=== PATIENT | male | born 1955 | race African-American/Black ===

== ENCOUNTER → 2020-02-09 11:57 | Outpatient (BNVA) | payer OTHER, SELFPAY | PROVIDERS: PCP Physician Assistant Medical; Referring Provider Physician Assistant Medical; Visit Provider Internal Medicine Gastroenterology | DX: K59.04 Chronic idiopathic constipation (principal); K74.60 Unspecified cirrhosis of liver; D12.6 Benign neoplasm of colon, unspecified; Z79.899 Other long term (current) drug therapy | CPT/HCPCS: 99213 ==

== ENCOUNTER 2020-02-19 12:15 | Outpatient (REF) | payer OTHER, SELFPAY ==
[2020-02-19 14:55] LABS: Estimated Average Glucose 126 mg/dL; Hemoglobin A1C 149.4694 umol/L
[2020-02-19 15:02] LABS: Creatinine Urine 73.69 mg/dL; Microalbum/Creatinine Ratio Ur 52.9 ug/mg cr
[2020-02-19 15:12] LABS: Alanine Aminotransferase 34 U/L (0-40); Albumin Level 3.9 g/dL (3.5-5.0); Alkaline Phosphatase 65 U/L (39-117); Anion Gap 13 (12-20); Aspartate Amino Transferase 34 U/L (5-37); Bilirubin Total 1.2 mg/dL (0.0-1.0); Blood Urea Nitrogen 14 mg/dL (9-16); Calcium 8.8 mg/dL (8.4-10.2); Carbon Dioxide 25 mmol/L (22-29); Chloride 103 mmol/L (96-108); Cholesterol 132 mg/dL; Estimated Glomerular Filt Rate > 60; Glucose Fasting 166 mg/dL (60-99); HDL Cholesterol 38 mg/dL; LDL Cholesterol Calculated 81 mg/dl; Sodium 137 mmol/L (135-145); Total Protein 6.9 g/dL (6.5-8.0); Triglycerides 67 mg/dL
[2020-02-20 20:31] LABS: LDL Cholesterol Direct 81 mg/dL (<100)
[2020-02-24 05:26] LABS: Fructosamine 314 umol/L (205-285)
== END 2020-02-19 12:16 | disposition home or self-care (01) ==
LOC: HO.10HDL 12:15
PROVIDERS: Visit Provider Nurse Practitioner Gerontology
DX: E11.42 Type 2 diabetes mellitus with diabetic polyneuropathy (principal); D12.6 Benign neoplasm of colon, unspecified
CPT/HCPCS: 80053; 80061; 82043; 82985; 83036; 83721

== ENCOUNTER 2020-04-12 | Outpatient (REF) | payer OTHER, SELFPAY ==
[2020-04-15 14:17] LABS: FIT Int Ctl YES; FIT1 NEGATIVE (NEGATIVE); FIT2 NEGATIVE (NEGATIVE)
== END 2020-04-12 00:01 | disposition home or self-care (01) ==
LOC: HO.LNP
PROVIDERS: Visit Provider Internal Medicine Gastroenterology
DX: Z13.89 Encounter for screening for other disorder (principal)
CPT/HCPCS: 82274

== ENCOUNTER → 2020-09-24 13:58 | Outpatient (BNVA) | payer OTHER, SELFPAY | PROVIDERS: PCP Physician Assistant Medical; Visit Provider Nurse Practitioner Gerontology | DX: E11.65 Type 2 diabetes mellitus with hyperglycemia (principal); E11.42 Type 2 diabetes mellitus with diabetic polyneuropathy; E78.5 Hyperlipidemia, unspecified; E78.1 Pure hyperglyceridemia; I10 Essential (primary) hypertension; Z88.8 Allergy status to other drugs, medicaments and biological substances; Z87.891 Personal history of nicotine dependence; Z79.84 Long term (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 of oral hypoglycemic drugs; Z79.899 Other long term (current) drug therapy | CPT/HCPCS: 82947; 83036; 99212 ==

== ENCOUNTER 2020-11-17 07:52 | Outpatient (REF) | payer OTHER, SELFPAY ==
--- NOTE | ~2020-11-17 | US_ITS ---
EXAMINATION: US ABDOMEN COMPLETE CLINICAL INFORMATION: Cirrhosis of liver. COMPARISON: April 29, 2019 TECHNIQUE: Real-time imaging of the abdominal viscera. FINDINGS: PANCREAS: Normal. ABDOMINAL AORTA: The proximal, mid, and distal segments are normal in caliber. INFERIOR VENA CAVA: Visualized portions are normal. LIVER: The liver has a coarse echotexture with increased echogenicity. No lobulation to the hepatic border is identified. No focal mass or intrapelvic bile duct dilatation is seen. GALLBLADDER: There is a 2 mm nonmobile echogenic structure likely representing a small polyp. The gallbladder is partially distended without evidence of wall thickening or pericholecystic fluid. COMMON BILE DUCT: Normal in caliber measuring 0.3 cm in diameter. RIGHT KIDNEY: Normal. No hydronephrosis. No renal calculi or focal parenchymal lesions. The kidney measures 12.7 cm in maximum dimension. LEFT KIDNEY: Normal. No hydronephrosis. No renal calculi or focal parenchymal lesions. The kidney measures 12.2 cm in maximum dimension. SPLEEN: Normal. The spleen measures 10.1 cm in maximum dimension. FREE FLUID: None. US/US abdomen complete IMPRESSION: Coarsened texture with increased echogenicity of the liver consistent with cirrhosis/hepatocellular disease. 2 mm nonmobile echogenic focus within the gallbladder consistent with small polyp.
== END 2020-11-17 07:53 | disposition home or self-care (01) ==
LOC: HO.US 07:52
PROVIDERS: Visit Provider Nurse Practitioner
DX: K74.60 Unspecified cirrhosis of liver (principal); E11.65 Type 2 diabetes mellitus with hyperglycemia; E11.42 Type 2 diabetes mellitus with diabetic polyneuropathy; E78.5 Hyperlipidemia, unspecified; E78.1 Pure hyperglyceridemia; I10 Essential (primary) hypertension
CPT/HCPCS: 76700

== ENCOUNTER → 2020-12-09 15:21 | Outpatient (BNVA) | payer OTHER, SELFPAY | PROVIDERS: Visit Provider Nurse Practitioner ==

== ENCOUNTER 2021-01-24 10:26 | Outpatient (REF) | payer OTHER, SELFPAY ==
[2021-01-24 14:07] LABS: Vitamin D 25-OH Total 33.9 ng/mL (>30)
[2021-01-24 14:08] LABS: Ferritin 408 ng/mL (20-250)
[2021-01-24 14:12] LABS: Alanine Aminotransferase 43 U/L (0-40); Albumin Level 4.1 g/dL (3.5-5.0); Alkaline Phosphatase 134 U/L (39-117); Anion Gap 11 (12-20); Aspartate Amino Transferase 30 U/L (5-37); Bilirubin Direct 0.2 mg/dL (0.0-0.5); Bilirubin Total 0.3 mg/dL (0.0-1.0); Blood Urea Nitrogen 14 mg/dL (9-16); Calcium 9.6 mg/dL (8.4-10.2); Carbon Dioxide 30 mmol/L (22-29); Chloride 101 mmol/L (96-108); Cholesterol 130 mg/dL; Estimated Glomerular Filt Rate 57; Gamma Glutamyl Transpeptidase 181 U/L (11-51); Glucose Fasting 356 mg/dL (60-99); HDL Cholesterol 35 mg/dL; LDL Cholesterol Calculated 77 mg/dl; Potassium 4.7 mmol/L (3.3-5.1); Sodium 137 mmol/L (135-145); Total Protein 7.4 g/dL (6.5-8.0); Triglycerides 90 mg/dL
[2021-01-24 15:02] LABS: Microalbum/Creatinine Ratio Ur 310.3 ug/mg cr
[2021-01-25 12:21] LABS: Alpha Fetoprotein 2.5 ng/mL (<6.1)
== END 2021-01-24 10:27 | disposition home or self-care (01) ==
LOC: HO.LAB 10:26
PROVIDERS: Nurse Practitioner Gerontology; PCP Physician Assistant Medical; Visit Provider Nurse Practitioner
DX: K59.04 Chronic idiopathic constipation (principal); D12.6 Benign neoplasm of colon, unspecified; K74.60 Unspecified cirrhosis of liver; K21.9 Gastro-esophageal reflux disease without esophagitis; E11.42 Type 2 diabetes mellitus with diabetic polyneuropathy; E11.65 Type 2 diabetes mellitus with hyperglycemia
CPT/HCPCS: 36415; 80053; 80061; 80076; 82043; 82105; 82248; 82306; 82728; 82977; 99212

== ENCOUNTER → 2021-03-07 11:04 | Outpatient (BNVA) | payer OTHER, SELFPAY | PROVIDERS: PCP Physician Assistant Medical; Visit Provider Nurse Practitioner | DX: K21.9 Gastro-esophageal reflux disease without esophagitis (principal); K59.04 Chronic idiopathic constipation; K74.60 Unspecified cirrhosis of liver; D12.6 Benign neoplasm of colon, unspecified | CPT/HCPCS: 99212 ==

== ENCOUNTER → 2021-05-25 09:43 | Outpatient (BNVA) | payer OTHER, SELFPAY | PROVIDERS: PCP Physician Assistant Medical; Visit Provider Nurse Practitioner Gerontology | DX: E11.65 Type 2 diabetes mellitus with hyperglycemia (principal); E11.42 Type 2 diabetes mellitus with diabetic polyneuropathy; E78.5 Hyperlipidemia, unspecified; E78.1 Pure hyperglyceridemia; I10 Essential (primary) hypertension; Z79.4 Long term (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 | CPT/HCPCS: 82947; 83036; 99212 ==

== ENCOUNTER → 2021-06-01 12:18 | Outpatient (BNVA) | payer OTHER, SELFPAY | PROVIDERS: PCP Physician Assistant Medical; Visit Provider Registered Nurse Diabetes Educator | DX: E11.42 Type 2 diabetes mellitus with diabetic polyneuropathy (principal) | CPT/HCPCS: 99211 ==

== ENCOUNTER → 2021-06-03 11:48 | Outpatient (BNVA) | payer OTHER, SELFPAY | PROVIDERS: PCP Physician Assistant Medical; Visit Provider Nurse Practitioner | DX: K74.60 Unspecified cirrhosis of liver (principal); K21.9 Gastro-esophageal reflux disease without esophagitis; D12.6 Benign neoplasm of colon, unspecified | CPT/HCPCS: 99212 ==

== ENCOUNTER 2021-07-08 10:24 | Day surgery (SDC) | payer OTHER, SELFPAY ==
--- NOTE | 2021-07-07 09:32 | P.CONAN_ITS ---
Documented by User: Almaz Azul NP 07/07/21 09:37 HPI - Anesthesia Eval Consult details Narrative: 65yo M for Colonoscopy PMFSH Active Problems Active Problems: All Active Problems (Updated 03/07/21 @ 12:02 by SIXTO Meade) GERD (gastroesophageal reflux disease) (Acute) Chronic idiopathic constipation (Acute) Tubular adenoma of colon (Acute) Cirrhosis of liver (Acute) Diabetes type 2, uncontrolled (Acute) Type 2 diabetes mellitus with diabetic polyneuropathy (Acute) Hyperlipidemia LDL goal <100 (Acute) Hypertriglyceridemia (Acute) Essential hypertension (Acute) Past Medical History Medical History Chronic idiopathic constipation Cirrhosis of liver Diabetes type 2, uncontrolled Essential hypertension GERD (gastroesophageal reflux disease) Hyperlipidemia LDL goal <100 Hypertriglyceridemia Tubular adenoma of colon Type 2 diabetes mellitus with diabetic polyneuropathy Family History Family History Father No problems noted. Mother Esophageal cancer Maternal Grandfather Prostate cancer Diabetes Maternal Grandmother CVD (cardiovascular disease) Daughter Tubular adenoma Surgical History Surgical History (Updated 07/04/21 @ 11:10 by Brooklyn Krishnan RN) H/O esophagogastroduodenoscopy History of gastric surgery History of penile implant Hx of colonoscopy (~10/2014) Social History Social History Household Members: Spouse Alcohol intake: current Alcohol intake frequency: former alcohol drinker Patient Tobacco Use Status: Former Tobacco user Use of substances other than those prescribed or required for medical reasons: No Are you DNR?: No Advance Directives: No Advance Directives Information Provided: Yes Meds Allergies Allergy/AdvReac Type Severity Reaction Status Date / Time lisinopril Allergy Unknown cough Verified 06/03/21 11:59 Home Medications Medication Instructions Recorded Confirmed Last Taken Type atorvastatin 20 mg tablet 20 mg PO BEDTIME 02/09/20 07/04/21 Unknown History fenofibrate micronized 134 mg 134 mg PO DAILY 02/09/20 07/04/21 Unknown History capsule omeprazole 20 mg capsule,delayed 20 mg PO DAILY 02/09/20 07/04/21 Unknown History release pregabalin 100 mg capsule (Lyrica) 100 mg PO BID 02/09/20 07/04/21 Unknown History insulin lispro 100 unit/mL 16 - 20 unit SUBCUT TID ml 06/03/21 07/04/21 Unknown History subcutaneous pen (Humalog KwikPen (U-100) Insulin) sitagliptin 100 mg tablet (Januvia) 1 tab PO DAILY 07/04/21 07/04/21 Unknown History Exam Exam Date and Time: July 07, 2021 0932 Pertinent Lab Results Pertinent Lab Results: Laboratory Tests 09/25/18 01/24/21 15:17 12:50 WBC 4.6 L Hgb 13.8 L Hct 39.2 L Plt Count 191 Sodium 137 Potassium 4.7 Chloride 101 Carbon Dioxide 30 H BUN 14 Creatinine 1.27 Narrative Narrative: US abdomen complete 10/2020 IMPRESSION: Coarsened texture with increased echogenicity of the liver consistent with cirrhosis/hepatocellular disease. ? 2 mm nonmobile echogenic focus within the gallbladder consistent with small polyp. Assessment and Plan Assessment Anesthesia Assessment: Chart Reviewed Documented by User: Sylvester Hernandez MD 07/08/21 20:55 [facility] Past Medical History Medical History Chronic idiopathic constipation Cirrhosis of liver Diabetes type 2, uncontrolled Essential hypertension GERD (gastroesophageal reflux disease) Hyperlipidemia LDL goal <100 Hypertriglyceridemia Tubular adenoma of colon Type 2 diabetes mellitus with diabetic polyneuropathy Functional capacity: independent ambulation Family History Family History Father No problems noted. Mother Esophageal cancer Maternal Grandfather Prostate cancer Diabetes Maternal Grandmother CVD (cardiovascular disease) Daughter Tubular adenoma Family history of problems with anesthesia: No Surgical History Surgical History (Updated 07/04/21 @ 11:10 by Brooklyn Krishnan RN) H/O esophagogastroduodenoscopy History of gastric surgery History of penile implant Hx of colonoscopy (~10/2014) History of Problems with Anesthesia: No Social History Social History Household Members: Spouse Alcohol intake: current Alcohol intake frequency: former alcohol drinker Patient Tobacco Use Status: Former Tobacco user Use of substances other than those prescribed or required for medical reasons: No Are you DNR?: No Advance Directives: No Advance Directives Information Provided: Yes Meds Allergies Allergy/AdvReac Type Severity Reaction Status Date / Time lisinopril Allergy Unknown cough Verified 06/03/21 11:59 Home Medications Medication Instructions Recorded Confirmed Last Taken Type atorvastatin 20 mg tablet 20 mg PO BEDTIME 02/09/20 07/04/21 Unknown History fenofibrate micronized 134 mg 134 mg PO DAILY 02/09/20 07/04/21 Unknown History capsule omeprazole 20 mg capsule,delayed 20 mg PO DAILY 02/09/20 07/04/21 Unknown History release pregabalin 100 mg capsule (Lyrica) 100 mg PO BID 02/09/20 07/04/21 Unknown History insulin lispro 100 unit/mL 16 - 20 unit SUBCUT TID ml 06/03/21 07/04/21 Unknown History subcutaneous pen (Humalog KwikPen (U-100) Insulin) sitagliptin 100 mg tablet (Januvia) 1 tab PO DAILY 07/04/21 07/04/21 Unknown History Exam Airway Mallampati Class: II TM Dist: >3cm Neck ROM: Full Denture: Upper Loose/Missing/Broken Teeth: Yes Heart: rrr Lungs: bl breath sounds Assessment and Plan Assessment Anesthesia Assessment: Anesthesia Plan Discussed Final Anesthetic Review Family History of Problems with Anesthesia: No History of Problems with Anesthesia: No NPO: Yes ASA Class: III Final Preanesthetic Review: Meds/Allgs Chart Reviewed, Consent Obtained/Reviewed and Anes Risks/Benef Reviewed Patient Risk: High Procedure Risk: Intermediate Anesthetic Plan Anesthetic Plan: MAC: Disposition: Standard PACU
[2021-07-08 11:20] VITALS: BP 158/86; PULSE 85; RESP 16; TEMP 36.2; O2SAT 98
[2021-07-08 11:21] VITALS: BMI 30.1
--- NOTE | 2021-07-08 11:28 | MHC.SHP ---
Pre-Procedural Eval Section A Date of Service: 07/08/21 The patient is an INPATIENT: No The History & Physical has been completed within 30 days and I have reviewed it.: No Section B Chief Complaint: Colon cancer screening, Hx of colon polyps Details of Present Illness: Colon cancer screening, history of colon polyps Relevant Family History (Specify if Yes): Yes Relevant Social History: Tobacco Use (Former smoker) Present Medications: see Short Stay Collaborative assessment Medical History: Significant History (Chronic idiopathic constipation Cirrhosis of liver Diabetes type 2, uncontrolled Essential hypertension GERD (gastroesophageal reflux disease) Hyperlipidemia LDL goal <100 Hypertriglyceridemia Tubular adenoma of colon Type 2 diabetes mellitus with diabetic polyneuropathy) History of Previous Operations: Relevant previous surgery/procedure and date(s) (H/O esophagogastroduodenoscopy History of gastric surgery History of prostate surgery Hx of colonoscopy (~10/2014)) Allergies: Allergies Allergy/AdvReac Type Severity Reaction Status Date / Time lisinopril Allergy Unknown cough Verified 06/03/21 11:59 Review of Systems Sugical H&P ROS: Negative: Constitution, Cardiovascular, Respiratory and Gastrointestinal Exam Surgical H&P Exam: Normal: Heart, Normal: Lungs and Normal: Extremities Plan Diagnosis/Plan: Unchanged I have reviewed the history and physical and performed a pertinent physical examination on my patient. No changes have occurred unless specified.
--- NOTE | 2021-07-08 11:30 | P.OP_ITS ---
Operative Note Operative Note Date of Service: 07/08/21 Narrative: Pre-op diagnosis:nnColon cancer screening, history of colon polyps Post-op diagnosis:?other (colon polyps, diverticulosis, hemorrhoids) Procedure: COLONOSCOPY TILL CECUM WITH SNARE POLYPECTOMY Consent: Indications for the procedure and potential complications of bleeding, perforation, reaction to medications and missed diagnosis were discussed with the patient and informed consent was obtained. Instrument: Olympus CF H 190 L variable stiffness adult colonoscope Monitoring: Vital signs and clinical assessment, intermittent blood pressure monitoring, continuous EKG monitoring, Pulse oximetry and Carbon Dioxide monitoring were done throughout the procedure. Colon withdrawl time was 17 minutes. Procedure: The patient was placed in the left lateral decubitis position and pre-procedure medications were administered. After a digital rectal examination of the ano-rectum, the video colonoscope was inserted into the rectum and advanced through the colon to the cecum. The colonoscope was slowly withdrawn in a retrograde panoramic fashion and the colon mucosa was carefully examined including a retroflexed view of the rectum. Findings and interventions are described below. Procedure Difficulty: Without difficulty Findings: Terminal Ileum: Not evaluated Cecum:? Normal Ascending Colon:? Scattered moderate diverticulosis throughout the colon Transverse Colon:? A 10 - 12 mm sessile polyp removed with a cold snare Scattered moderate diverticulosis throughout the colon Descending Colon:? Scattered moderate diverticulosis throughout the colon Sigmoid Colon:? Moderate diverticulosis Rectum:? Normal Ano-rectum:? Moderate internal hemorrhoids Colon preparation:? Good after copious irrigation. Impression and Post Procedure Diagnosis: Colonoscopy Findings: One medium sized polyp removed Moderate diverticulosis seen in the entire colon Moderate hemorrhoids on retroflexed exam. Plan: Await pathology results Patient has an appointment on 07/15/21 in the GI Clinic with? Cindy Swift NP. Repeat Colonoscopy interval based on path results - in 3 years if polyps are adenomatous and 10 years if polyps are hyperplastic. Above findings were reviewed with the patient and colon polyps and diverticulosis handouts were given in the discharge area Surgeon: Marino uPrcell MD Anesthesia:?MAC (Dr Hernandez) Was an Electrical Controls Designer used for this Procedure?:?Yes Electrical Controls Designer:?Naima Kiser Estimated blood loss (mL):?0 Pathology:?other (A. transverse colon polyp) Condition:?stable Disposition:?PACU
[2021-07-08 11:32] LABS: Glucose, Whole Blood 109 mg/dL (60-115)
[2021-07-08] MEDS: Lactated Ringers 1,000 ML 100 ML IVCONT (11:37)
[2021-07-08 13:05] VITALS: BP 130/80; PULSE 84; RESP 19; TEMP 36.2; O2SAT 97
[2021-07-08 13:19] VITALS: BP 138/85; PULSE 82; RESP 19; O2SAT 100
[2021-07-08 13:34] VITALS: BP 153/89; PULSE 88; RESP 18; TEMP 36.2; O2SAT 99
== END 2021-07-08 14:15 | disposition home or self-care (01) ==
PROVIDERS: PCP Physician Assistant Medical; Visit Provider Internal Medicine Gastroenterology
PROC: 0DJD8ZZ Inspection of Lower Intestinal Tract, Via Natural or Artificial Opening Endoscopic (ICD-10-PCS; CPT 45378; principal; 2021-07-08 10:40)
DX: Z12.11 Encounter for screening for malignant neoplasm of colon (principal); Z86.010 Personal history of colon polyps; D12.3 Benign neoplasm of transverse colon; K57.30 Diverticulosis of large intestine without perforation or abscess without bleeding; K64.8 Other hemorrhoids; K59.04 Chronic idiopathic constipation; K21.9 Gastro-esophageal reflux disease without esophagitis; K74.60 Unspecified cirrhosis of liver; E78.5 Hyperlipidemia, unspecified; I10 Essential (primary) hypertension; E11.42 Type 2 diabetes mellitus with diabetic polyneuropathy; Z88.8 Allergy status to other drugs, medicaments and biological substances; Z98.890 Other specified postprocedural states; Z79.4 Long term (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; Z79.899 Other long term (current) drug therapy; Z87.891 Personal history of nicotine dependence
CPT/HCPCS: 45385; 82947; 88305

== ENCOUNTER 2021-07-13 11:04 | Outpatient (REF) | payer MEDICARE, MEDICAID, SELFPAY ==
[2021-07-13 12:46] LABS: Alanine Aminotransferase 45 U/L (0-40); Alkaline Phosphatase 104 U/L (39-117); Aspartate Amino Transferase 34 U/L (5-37); Bilirubin Direct 0.3 mg/dL (0.0-0.5); Bilirubin Total 0.7 mg/dL (0.0-1.0); Total Protein 7.2 g/dL (6.5-8.0)
[2021-07-13 13:17] LABS: Ferritin 377 ng/mL (20-250)
[2021-07-15 19:21] LABS: Anti Nuclear Antibody Screen NEGATIVE (NEGATIVE)
[2021-07-16 13:16] LABS: Mitochondrial Antibodies NEGATIVE (NEGATIVE)
[2021-07-17 14:00] LABS: Smooth Muscle Antibody <20 U (<20)
== END 2021-07-13 11:05 | disposition home or self-care (01) ==
LOC: HO.US 11:04
PROVIDERS: Absent Provider Nurse Practitioner Gerontology; PCP Physician Assistant Medical; Visit Provider Nurse Practitioner
DX: K74.60 Unspecified cirrhosis of liver (principal)
CPT/HCPCS: 36415; 80076; 82105; 82728; 86015; 86038; 86039; 86255; 86256

== ENCOUNTER 2021-08-03 08:52 | Outpatient (REF) | payer MEDICARE, MEDICAID, SELFPAY ==
--- NOTE | ~2021-08-03 | US_ITS ---
EXAMINATION: US ABDOMEN LIMITED CLINICAL INFORMATION: Unspecified cirrhosis of liver. COMPARISON: Ultrasound abdomen complete 11/17/2020 and 04/29/2019; CT abdomen and pelvis with contrast 05/13/2018. TECHNIQUE: Real-time imaging of the right upper quadrant abdominal viscera. FINDINGS: PANCREAS: Pancreas is normal in size and contour and echogenicity. There is no pancreatic ductal dilatation or retroperitoneal effusion. LIVER: The liver is normal in size measuring 16.4 cm in length. There is suggestion of nodular hepatic parenchymal surface which may suggest underlying cirrhosis. This is also question on CT 2019. There is mild increased hepatic parenchymal echogenicity which may suggest hepatic steatosis. There is no focal hepatic parenchymal lesion on ultrasound and no intrahepatic ductal dilatation. GALLBLADDER: There is a small gallbladder polyp approximately 3 mm, polyp also noted on prior ultrasound. No definite additional polyps and no calculus or sludge. No gallbladder wall thickening. Negative sonographic Overton's sign. COMMON BILE DUCT: Normal in caliber measuring 0.2 cm in diameter. RIGHT KIDNEY: Right kidney measures 12.8 cm in length and shows no hydronephrosis. No visible renal calculi or focal parenchymal lesion. No calculi. FREE FLUID: None. US/US abdomen limited IMPRESSION: -Subtle hepatic nodular surface suspicious for cirrhosis, also questioned on CT 2019. -No focal hepatic parenchymal lesion. No ascites. -Small gallbladder polyp. No stone or sludge. No ductal dilatation.
== END 2021-08-03 08:53 | disposition home or self-care (01) ==
LOC: HO.US 08:52
PROVIDERS: PCP Physician Assistant Medical; Visit Provider Nurse Practitioner
DX: K74.60 Unspecified cirrhosis of liver (principal)
CPT/HCPCS: 76705

== ENCOUNTER → 2021-08-12 11:04 | Outpatient (BNVA) | payer MEDICARE, MEDICAID, SELFPAY | PROVIDERS: PCP Physician Assistant Medical; Visit Provider Nurse Practitioner | DX: T83.490A Other mechanical complication of implanted penile prosthesis, initial encounter (principal); N40.1 Benign prostatic hyperplasia with lower urinary tract symptoms; N13.8 Other obstructive and reflux uropathy; K59.04 Chronic idiopathic constipation; K21.9 Gastro-esophageal reflux disease without esophagitis; K74.60 Unspecified cirrhosis of liver; D12.6 Benign neoplasm of colon, unspecified | CPT/HCPCS: 99212 ==

== ENCOUNTER → 2021-09-09 12:14 | Outpatient (BNVA) | payer MEDICARE, MEDICAID, SELFPAY | PROVIDERS: PCP Physician Assistant Medical; Visit Provider Nurse Practitioner | DX: K21.9 Gastro-esophageal reflux disease without esophagitis (principal); K59.04 Chronic idiopathic constipation; K74.60 Unspecified cirrhosis of liver | CPT/HCPCS: 99212 ==

== ENCOUNTER 2022-02-22 10:58 | Outpatient (REF) | payer MEDICARE, SELFPAY ==
--- NOTE | ~2022-02-22 | XR_ITS ---
EXAMINATION: XR LUMBAR AND DORSAL SPINE CLINICAL INFORMATION: Abdominal pain. COMPARISON: None. TECHNIQUE: 3 views dorsal spine and 3 views lumbar spine. FINDINGS: Lumbar Spine: There is normal lumbar lordosis. The vertebral heights and alignment are normal. There is loss of L3-L4 disc height with endplate sclerosis. The rest of the disc heights are normal. There is no visible acute fracture, lytic or sclerotic process. Mild lateral spondylosis seen throughout lumbar spine. Dorsal Spine: There is normal thoracic kyphosis. The vertebral heights, alignment and disc heights are normal. There is no visible acute fracture, dislocation or lytic process seen. The paravertebral soft tissues are normal. XR/XR thoracic spine 2V IMPRESSION: Degenerative disc changes L3-L4 disc level. No visible acute fracture, dislocation or lytic process seen. Lateral spondylosis most prominent on the left at L4-L5 disc level. Unremarkable dorsal spine exam.
--- NOTE | ~2022-02-22 | XR_ITS ---
EXAMINATION: XR LUMBAR AND DORSAL SPINE CLINICAL INFORMATION: Abdominal pain. COMPARISON: None. TECHNIQUE: 3 views dorsal spine and 3 views lumbar spine. FINDINGS: Lumbar Spine: There is normal lumbar lordosis. The vertebral heights and alignment are normal. There is loss of L3-L4 disc height with endplate sclerosis. The rest of the disc heights are normal. There is no visible acute fracture, lytic or sclerotic process. Mild lateral spondylosis seen throughout lumbar spine. Dorsal Spine: There is normal thoracic kyphosis. The vertebral heights, alignment and disc heights are normal. There is no visible acute fracture, dislocation or lytic process seen. The paravertebral soft tissues are normal. XR/XR lumbar spine 2-3V IMPRESSION: Degenerative disc changes L3-L4 disc level. No visible acute fracture, dislocation or lytic process seen. Lateral spondylosis most prominent on the left at L4-L5 disc level. Unremarkable dorsal spine exam.
[2022-02-22 12:23] LABS: Appearance Urine Clear; Color Urine Yellow; Glucose Urine UA >=1000 mg/dL (Negative); Leukocyte Esterase Urine Negative (Negative); Nitrite Urine Negative (Negative); PH 6.5 (5.0-9.0); UMIC TRIGGER UACC YES; Urine Blood Negative (Negative); Urine Ketones Negative (Negative); Urine Protein 30 (1+) mg/dL (Neg-Trace)
[2022-02-22 12:26] LABS: Bacteria Urine None Seen (None Seen); Hyaline Casts Urine 0-2 /LPF (0-2); RBC Urine 0-2 /HPF (0-2); Squamous Epithelial Cell Urine 0-2 /HPF (0-2); WBC Urine 0-5 /HPF (0-5)
[2022-02-22 12:59] LABS: Alanine Aminotransferase 44 U/L (0-40); Albumin Level 3.8 g/dL (3.5-5.0); Alkaline Phosphatase 147 U/L (39-117); Anion Gap 16 (12-20); Aspartate Amino Transferase 35 U/L (5-37); Bilirubin Total 0.3 mg/dL (0.0-1.0); Blood Urea Nitrogen 13 mg/dL (9-16); Calcium 9.7 mg/dL (8.4-10.2); Carbon Dioxide 28 mmol/L (22-29); Chloride 96 mmol/L (96-108); Estimated Glomerular Filt Rate > 60; Glucose Random 330 mg/dL (60-115); Potassium 4.6 mmol/L (3.3-5.1); Sodium 135 mmol/L (135-145)
[2022-02-24 13:55] LABS: Alpha Fetoprotein 2.3 ng/mL (<6.1)
== END 2022-02-22 10:59 | disposition home or self-care (01) ==
LOC: HO.LAB 10:58
PROVIDERS: PCP Physician Assistant Medical; Visit Provider Nurse Practitioner
DX: R10.9 Unspecified abdominal pain (principal); K59.04 Chronic idiopathic constipation; K21.9 Gastro-esophageal reflux disease without esophagitis; K74.60 Unspecified cirrhosis of liver; M54.9 Dorsalgia, unspecified
CPT/HCPCS: 36415; 72070; 72100; 80053; 81001; 82105; 99212

== ENCOUNTER 2022-05-04 09:45 | Outpatient (REF) | payer MEDICARE, SELFPAY ==
--- NOTE | ~2022-05-04 | US_ITS ---
EXAMINATION: US ABDOMEN LIMITED CLINICAL INFORMATION: Unspecified cirrhosis of liver. COMPARISON: Limited abdominal ultrasound 08/03/2021. Ultrasound abdomen complete 11/17/2020. CT abdomen and pelvis 05/13/2018. TECHNIQUE: Real-time imaging of the right upper quadrant abdominal viscera. FINDINGS: PANCREAS: The pancreas is heterogeneous but otherwise normal size. LIVER: The liver is normal in size. The liver contour is normal. The liver is slightly increased in echogenicity. No focal hepatic lesion. There is no intrahepatic biliary duct dilatation seen. GALLBLADDER: There is an echogenic polyp measuring 0.2 x 0.2 x 0.2 cm. The gallbladder is physiologically distended without evidence of stones, sludge, wall thickening or pericholecystic fluid. There are multiple internal mucosal folds. COMMON BILE DUCT: Normal in caliber measuring 0.3 cm in diameter. RIGHT KIDNEY: There is normal cortical thickness with mild lobulated kidney surface. No hydronephrosis. No renal calculi or focal parenchymal lesions. The kidney measures 12.7 cm in maximum dimension. FREE FLUID: None. US/US abdomen limited IMPRESSION: Small echogenic polyp with numerous folds within the gallbladder. Mild increased echogenicity of the liver. Pancreas is mildly heterogeneous.
== END 2022-05-04 09:46 | disposition home or self-care (01) ==
LOC: HO.US 09:45
PROVIDERS: Visit Provider Nurse Practitioner
DX: K74.60 Unspecified cirrhosis of liver (principal)
CPT/HCPCS: 76705

== ENCOUNTER → 2022-08-16 12:31 | Outpatient (BNVA) | payer MEDICARE, SELFPAY | PROVIDERS: PCP Physician Assistant Medical; Visit Provider Nurse Practitioner | DX: K59.04 Chronic idiopathic constipation (principal); K21.9 Gastro-esophageal reflux disease without esophagitis; K74.60 Unspecified cirrhosis of liver; M54.9 Dorsalgia, unspecified; R10.9 Unspecified abdominal pain | CPT/HCPCS: 99212 ==

== ENCOUNTER 2023-05-23 13:36 | Outpatient (AMB) | payer MEDICARE, SELFPAY ==
[2023-05-23 13:37] VITALS: BP 164/70; PULSE 91; O2SAT 97; BMI 29.7
--- NOTE | 2023-05-23 13:37 | HO.NEPHOV_ITS ---
HPI HPI Comments History of Present Illness Details 67 yr old man with long standing h/o HTN And DM for more than 5 years referred for CKD Creatinine was 1.2 in 2020. No recent labs availble No specific complaints today [facility] Medical History Chronic idiopathic constipation Cirrhosis of liver Diabetes type 2, uncontrolled Essential hypertension GERD (gastroesophageal reflux disease) Hyperlipidemia LDL goal <100 Hypertriglyceridemia Tubular adenoma of colon Type 2 diabetes mellitus with diabetic polyneuropathy Surgical History History of penile implant History of gastric surgery H/O esophagogastroduodenoscopy Hx of colonoscopy (~10/2014) Family History Father No problems noted. Mother Esophageal cancer Maternal Grandfather Prostate cancer Diabetes Maternal Grandmother CVD (cardiovascular disease) Daughter Tubular adenoma Social History Household Members: Spouse Alcohol intake: current Alcohol intake frequency: former alcohol drinker Patient Tobacco Use Status: Former Tobacco user Vital Signs 05/23/23 13:37 05/23/23 13:51 Height 5 ft 9 in Weight 201 lb 6 oz BMI 29.7 BP 164/70 H 132/70 Blood Pressure Location Lt brachial Lt brachial Position Sitting Sitting Pulse 91 Pulse Source Pulse Oximeter Pulse Oximetry (%) 97 Oxygen Delivery Method Room Air Physical Exam Vital Signs: Last Vital Signs Pulse 91 05/23/23 13:37 BP 132/70 05/23/23 13:51 Pulse Ox 97 05/23/23 13:37 Oxygen Delivery Method Room Air 05/23/23 13:37 BMI result Body Mass Index 29.7 Const General: comfortable Nutritional Appearance: well nourished Orientation/consciousness: patient oriented x3 HEENT Head: No normal to inspection Mouth: moist mucous membranes Neck Neck: Yes supple and Yes no JVD Resp Auscultation: clear to auscultation bilaterally, no rales and rub present Cardio Jugular venous distension: no JVD Palpation: no palpable S3 and no palpable S4 Heart sounds: no rubs GI Palpation (GI): Soft to palpation and nontender Percussion: No Fluid wave present General: Yes no CVA tenderness Back/Spine/Pelvis Back: no CVA tenderness Skin General skin exam: no rashes or lesions noted Neuro General: patient oriented x3 Extrem General: Yes no pedal edema and No clubbing Assessment & Plan Assessment & Plan (1) Essential hypertension: Code(s): I10 - Essential (primary) hypertension (2) CKD (chronic kidney disease): Code(s): N18.9 - Chronic kidney disease, unspecified (3) Cirrhosis of liver: Comment: 2019 hepatitis a B and C screens negative Code(s): K74.60 - Unspecified cirrhosis of liver (4) Type 2 diabetes mellitus with diabetic polyneuropathy: Code(s): E11.42 - Type 2 diabetes mellitus with diabetic polyneuropathy Plan . 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 Panel Today I10 - Essential (primary) hypertension, N18.9 - Chronic kidney disease, unspecified Sodium Urine Random Today I10 - Essential (primary) hypertension, N18.9 - Chronic kidney disease, unspecified Creatinine Urine Today I10 - Essential (primary) hypertension, N18.9 - Chronic kidney disease, unspecified Total Protein Urine Random Today I10 - Essential (primary) hypertension, N18.9 - Chronic kidney disease, unspecified Vitamin D 25-OH (D2 and D3) Today I10 - Essential (primary) hypertension, N18.9 - Chronic kidney disease, unspecified Coding Level of Care Code New Pt Level 4 (25083) Diagnoses Essential hypertension I10 CKD (chronic kidney disease) N18.9 Cirrhosis of liver K74.60 Type 2 diabetes mellitus with diabetic polyneuropathy E11.42 Results Reviewed Nephrology Results: Sodium 135 mmol/L (135-145) 02/22/22 Potassium 4.6 mmol/L (3.3-5.1) 02/22/22 Chloride 96 mmol/L (96-108) 02/22/22 Carbon Dioxide 28 mmol/L (22-29) 02/22/22 BUN 13 mg/dL (9-16) 02/22/22 Creatinine 1.21 mg/dL (0.5-1.4) 02/22/22 Calcium 9.7 mg/dL (8.4-10.2) 02/22/22 Urine Protein 30 (1+) mg/dL (Neg-Trace) H 02/22/22
[2023-05-23 13:51] VITALS: BP 132/70
== END 2023-05-23 13:56 | disposition home or self-care (01) ==
LOC: HO.HKA 13:36
PROVIDERS: PCP Physician Assistant Medical; Visit Provider Internal Medicine Hypertension Specialist
DX: I12.9 Hypertensive chronic kidney disease with stage 1 through stage 4 chronic kidney disease, or unspecified chronic kidney disease (principal); N18.9 Chronic kidney disease, unspecified; K74.60 Unspecified cirrhosis of liver; E11.42 Type 2 diabetes mellitus with diabetic polyneuropathy
CPT/HCPCS: 99204

== ENCOUNTER → 2023-05-23 13:36 | Outpatient (BNVA) | payer MEDICARE, SELFPAY | PROVIDERS: PCP Physician Assistant Medical; Visit Provider Internal Medicine Hypertension Specialist | DX: I12.9 Hypertensive chronic kidney disease with stage 1 through stage 4 chronic kidney disease, or unspecified chronic kidney disease (principal); E11.22 Type 2 diabetes mellitus with diabetic chronic kidney disease; N18.9 Chronic kidney disease, unspecified; K74.60 Unspecified cirrhosis of liver; E11.42 Type 2 diabetes mellitus with diabetic polyneuropathy | CPT/HCPCS: 99202 ==

== ENCOUNTER 2023-05-23 13:58 | Outpatient (REF) | payer MEDICARE, SELFPAY ==
[2023-05-23 18:08] LABS: Alanine Aminotransferase 31 U/L (0-40); Albumin Level 2.9 g/dL (3.5-5.0); Alkaline Phosphatase 124 U/L (39-117); Anion Gap 11 (12-20); Aspartate Amino Transferase 36 U/L (5-37); Bilirubin Total 0.3 mg/dL (0.0-1.0); Blood Urea Nitrogen 22 mg/dL (9-16); Calcium 8.9 mg/dL (8.4-10.2); Carbon Dioxide 28 mmol/L (22-29); Chloride 101 mmol/L (96-108); Estimated Glomerular Filt Rate 45; Glucose Random 261 mg/dL (60-115); Iron 82 mcg/dL (45-160); Percent Iron Saturation 38 % (15-50); Potassium 4.8 mmol/L (3.3-5.1); Sodium 135 mmol/L (135-145); Total Iron Binding Capacity 218 mcg/dL (228-428); Total Protein 6.4 g/dL (6.5-8.0); Unsaturated Iron Binding 136 ug/dL
== END 2023-05-23 13:59 | disposition home or self-care (01) ==
LOC: HO.HKASLDS 13:58
PROVIDERS: Visit Provider Internal Medicine Hypertension Specialist
DX: I12.9 Hypertensive chronic kidney disease with stage 1 through stage 4 chronic kidney disease, or unspecified chronic kidney disease (principal); N18.9 Chronic kidney disease, unspecified
CPT/HCPCS: 36415; 80053; 82306; 83540

== ENCOUNTER 2023-07-04 12:19 | Outpatient (AMB) | payer MEDICARE, SELFPAY ==
--- NOTE | 2023-07-04 12:21 | HO.NEPHOV_ITS ---
HPI HPI Comments History of Present Illness Details 67 yr old man with long standing h/o HTN And DM for more than 5 years referred for CKD Creatinine was 1.2 in 2020. No recent labs availble No specific complaints today [facility] Medical History Chronic idiopathic constipation Cirrhosis of liver Diabetes type 2, uncontrolled Essential hypertension GERD (gastroesophageal reflux disease) Hyperlipidemia LDL goal <100 Hypertriglyceridemia Tubular adenoma of colon Type 2 diabetes mellitus with diabetic polyneuropathy Surgical History History of penile implant History of gastric surgery H/O esophagogastroduodenoscopy Hx of colonoscopy (~10/2014) Family History Father No problems noted. Mother Esophageal cancer Maternal Grandfather Prostate cancer Diabetes Maternal Grandmother CVD (cardiovascular disease) Daughter Tubular adenoma Social History Household Members: Spouse Alcohol intake: current Alcohol intake frequency: former alcohol drinker Patient Tobacco Use Status: Former Tobacco user Vital Signs 07/04/23 12:22 Height 5 ft 9 in Weight 202 lb BMI 29.8 BP 152/90 H Blood Pressure Location Lt brachial Position Sitting Pulse 99 Pulse Source Pulse Oximeter Pulse Oximetry (%) 96 Oxygen Delivery Method Room Air Physical Exam Vital Signs: Last Vital Signs Pulse 99 07/04/23 12:22 BP 152/90 H 07/04/23 12:22 Pulse Ox 96 07/04/23 12:22 Oxygen Delivery Method Room Air 07/04/23 12:22 BMI result Body Mass Index 29.8 Const General: comfortable Nutritional Appearance: well nourished Orientation/consciousness: patient oriented x3 HEENT Head: No normal to inspection Mouth: moist mucous membranes Neck Neck: Yes supple and Yes no JVD Resp Auscultation: clear to auscultation bilaterally, no rales and rub present Cardio Jugular venous distension: no JVD Palpation: no palpable S3 and no palpable S4 Heart sounds: no rubs GI Palpation (GI): Soft to palpation and nontender Percussion: No Fluid wave present General: Yes no CVA tenderness Back/Spine/Pelvis Back: no CVA tenderness Skin General skin exam: no rashes or lesions noted Neuro General: patient oriented x3 Extrem General: Yes no pedal edema and No clubbing Assessment & Plan Assessment & Plan (1) Essential hypertension: Code(s): I10 - Essential (primary) hypertension (2) CKD (chronic kidney disease): Code(s): N18.9 - Chronic kidney disease, unspecified (3) Cirrhosis of liver: Comment: 2019 hepatitis a B and C screens negative Code(s): K74.60 - Unspecified cirrhosis of liver (4) Type 2 diabetes mellitus with diabetic polyneuropathy: Code(s): E11.42 - Type 2 diabetes mellitus with diabetic polyneuropathy Plan . 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 Panel Today N18.9 - Chronic kidney disease, unspecified Creatinine Urine Today N05.9 - Unspecified nephritic syndrome with unspecified morphologic changes, N18.9 - Chronic kidney disease, unspecified Total Protein Urine Random Today N18.9 - Chronic kidney disease, unspecified Vitamin D 25-OH (D2 and D3) Today N18.9 - Chronic kidney disease, unspecified Coding Level of Care Code Est Pt Level 4 (35452) Diagnoses Essential hypertension I10 CKD (chronic kidney disease) N18.9 Cirrhosis of liver K74.60 Type 2 diabetes mellitus with diabetic polyneuropathy E11.42 Results Reviewed Results Reviewed: No new labs yet Nephrology Results: Sodium 135 mmol/L (135-145) 05/23/23 Potassium 4.8 mmol/L (3.3-5.1) 05/23/23 Chloride 101 mmol/L (96-108) 05/23/23 Carbon Dioxide 28 mmol/L (22-29) 05/23/23 BUN 22 mg/dL (9-16) H 05/23/23 Creatinine 1.54 mg/dL (0.5-1.4) H 05/23/23 Calcium 8.9 mg/dL (8.4-10.2) 05/23/23 Urine Protein 30 (1+) mg/dL (Neg-Trace) H 02/22/22
[2023-07-04 12:22] VITALS: BP 152/90; PULSE 99; O2SAT 96; BMI 29.8
== END 2023-07-04 12:50 | disposition home or self-care (01) ==
PROVIDERS: PCP Physician Assistant Medical; Visit Provider Internal Medicine Hypertension Specialist
DX: I12.9 Hypertensive chronic kidney disease with stage 1 through stage 4 chronic kidney disease, or unspecified chronic kidney disease (principal); N18.9 Chronic kidney disease, unspecified; K74.60 Unspecified cirrhosis of liver; E11.42 Type 2 diabetes mellitus with diabetic polyneuropathy
CPT/HCPCS: 99214

== ENCOUNTER → 2023-07-04 12:19 | Outpatient (BNVA) | payer MEDICARE, SELFPAY | PROVIDERS: PCP Physician Assistant Medical; Visit Provider Internal Medicine Hypertension Specialist | DX: I12.9 Hypertensive chronic kidney disease with stage 1 through stage 4 chronic kidney disease, or unspecified chronic kidney disease (principal); E11.22 Type 2 diabetes mellitus with diabetic chronic kidney disease; E11.42 Type 2 diabetes mellitus with diabetic polyneuropathy; N18.30 Chronic kidney disease, stage 3 unspecified; K74.60 Unspecified cirrhosis of liver | CPT/HCPCS: 99212 ==

== ENCOUNTER 2023-07-05 12:24 | Outpatient (REF) | payer MEDICARE, SELFPAY ==
[2023-07-05 17:43] LABS: MANUAL DIFF FLAG NO
[2023-07-05 17:47] LABS: Basophils Percent Auto 0.5 % (0-2); Eosinophils Absolute Auto 0.2 X10*3/uL (0.0-0.4); Eosinophils Percent Auto 3.6 % (0-4); Hematocrit 33.3 % (42.0-52.0); Hemoglobin 11.3 g/dl (14.0-18.0); Imm Gran Abs Auto 0.01 X10*3/uL (0.00-0.03); Imm Gran Pct Auto 0.2 % (0.0-0.4); Lymphocytes Absolute Auto 2.4 X10*3/uL (1.2-4.9); Lymphocytes Percent Auto 35.5 % (20-40); Mean Corpuscular HGB Conc 33.9 g/dl (31.0-36.0); Mean Corpuscular Hemoglobin 31.7 pg (27.0-33.0); Mean Corpuscular Volume 93.3 fL (80.0-98.0); Mean Platelet Volume 10.6 fL (9.4-12.4); Monocytes Absolute Auto 0.7 X10*3/uL (0.1-1.2); Neutrophils Absolute Auto 3.3 x10*3/uL (2.0-8.3); Neutrophils Percent Auto 49.2 % (45-73); Platelet Count 216 X10*3/uL (160-400); Red Blood Count 3.57 X10*6/uL (4.60-5.80); Red Cell Distribution Width 11.5 % (11.0-16.0); White Blood Count 6.6 X10*3/uL (4.8-10.8)
[2023-07-05 18:08] LABS: Alanine Aminotransferase 32 U/L (0-40); Albumin Level 2.8 g/dL (3.5-5.0); Alkaline Phosphatase 168 U/L (39-117); Anion Gap 10 (12-20); Aspartate Amino Transferase 39 U/L (5-37); Bilirubin Total 0.8 mg/dL (0.0-1.0); Blood Urea Nitrogen 27 mg/dL (9-16); Calcium 8.7 mg/dL (8.4-10.2); Carbon Dioxide 30 mmol/L (22-29); Chloride 102 mmol/L (96-108); Estimated Glomerular Filt Rate 39; Glucose Random 103 mg/dL (60-115); Potassium 4.2 mmol/L (3.3-5.1); Sodium 138 mmol/L (135-145); Total Protein 6.2 g/dL (6.5-8.0)
[2023-07-09 23:09] LABS: Vitamin D 25-OH, D2 <4 ng/mL; Vitamin D 25-OH, D3 21 ng/mL; Vitamin D 25-OH, Total 21 ng/mL (30-100)
== END 2023-07-05 12:25 | disposition home or self-care (01) ==
LOC: HO.HKASLDS 12:24
PROVIDERS: Visit Provider Internal Medicine Hypertension Specialist
DX: N18.30 Chronic kidney disease, stage 3 unspecified (principal)
CPT/HCPCS: 36415; 80053; 82306; 85025

== ENCOUNTER 2023-09-05 11:14 | Outpatient (AMB) | payer MEDICARE, SELFPAY ==
--- NOTE | 2023-09-05 11:21 | HO.NEPHOV ---
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 Creatinine has bumped up to 1.7 in June Currently on Bumex 0.5mg along with VAlsartan 320 mg PFSH Medical History Chronic idiopathic constipation Cirrhosis of liver Diabetes type 2, uncontrolled Essential hypertension GERD (gastroesophageal reflux disease) Hyperlipidemia LDL goal <100 Hypertriglyceridemia Tubular adenoma of colon Type 2 diabetes mellitus with diabetic polyneuropathy Surgical History History of penile implant History of gastric surgery H/O esophagogastroduodenoscopy Hx of colonoscopy (~10/2014) Family History Father No problems noted. Mother Esophageal cancer Maternal Grandfather Prostate cancer Diabetes Maternal Grandmother CVD (cardiovascular disease) Daughter Tubular adenoma Social History Household Members: Spouse Alcohol intake: current Alcohol intake frequency: former alcohol drinker Patient Tobacco Use Status: Former Tobacco user Physical Exam Vital Signs: Last Vital Signs Pulse 92 09/05/23 11:26 BP 150/86 H 09/05/23 11:26 Pulse Ox 97 09/05/23 11:26 Oxygen Delivery Method Room Air 09/05/23 11:26 BMI result Body Mass Index 28.9 Results Reviewed Nephrology Results: Hgb 11.3 g/dl (14.0-18.0) L 07/05/23 WBC 6.6 X10*3/uL (4.8-10.8) 07/05/23 Plt Count 216 X10*3/uL (160-400) 07/05/23 Sodium 138 mmol/L (135-145) 07/05/23 Potassium 4.2 mmol/L (3.3-5.1) 07/05/23 Chloride 102 mmol/L (96-108) 07/05/23 Carbon Dioxide 30 mmol/L (22-29) H 07/05/23 BUN 27 mg/dL (9-16) H 07/05/23 Creatinine 1.76 mg/dL (0.5-1.4) H 07/05/23 Calcium 8.7 mg/dL (8.4-10.2) 07/05/23 Assessment & Plan Assessment & Plan (1) CKD (chronic kidney disease): Code(s): N18.9 - Chronic kidney disease, unspecified Category: Medical (2) Essential hypertension: Code(s): I10 - Essential (primary) hypertension Category: Medical (3) Cirrhosis of liver: Comment: 2019 hepatitis a B and C screens negative Code(s): K74.60 - Unspecified cirrhosis of liver Category: Medical (4) Type 2 diabetes mellitus with diabetic polyneuropathy: Code(s): E11.42 - Type 2 diabetes mellitus with diabetic polyneuropathy Category: Medical Plan . 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 No evidence of obstruction based on recent imaging Urine has been bland and AGN/AiN seem unlikely Goal is to slow the progression of renal disease Maintain BP < 130/80 and A1c < 7% Avoid nephrotoxins including NSAIDS Will benefit from SGLT-2 inhibitors Superimposed DEMI Cr is upto 1.76 Probably from hypoperfusion DC Bumex and recheck labs in 2 weeks Check renal ultrasound to r.o obstruction Orders: Orders Total Protein Urine Random 2 Weeks N18.9 - Chronic kidney disease, unspecified Basic Metabolic Panel 2 Weeks N18.9 - Chronic kidney disease, unspecified UA and rflx microscopic 2 Weeks N18.9 - Chronic kidney disease, unspecified Creatinine Urine 2 Weeks N05.9 - Unspecified nephritic syndrome with unspecified morphologic changes, N18.9 - Chronic kidney disease, unspecified US renal BI 2 Weeks N18.9 - Chronic kidney disease, unspecified Coding Level of Care Code Est Pt Level 4 (91818) Diagnoses CKD (chronic kidney disease) N18.9 Essential hypertension I10 Cirrhosis of liver K74.60 Type 2 diabetes mellitus with diabetic polyneuropathy E11.42
[2023-09-05 11:26] VITALS: BP 150/86; PULSE 92; O2SAT 97; BMI 28.9
== END 2023-09-05 11:41 | disposition home or self-care (01) ==
PROVIDERS: PCP Physician Assistant Medical; Visit Provider Internal Medicine Hypertension Specialist
DX: I12.9 Hypertensive chronic kidney disease with stage 1 through stage 4 chronic kidney disease, or unspecified chronic kidney disease (principal); N18.9 Chronic kidney disease, unspecified; K74.60 Unspecified cirrhosis of liver; E11.42 Type 2 diabetes mellitus with diabetic polyneuropathy
CPT/HCPCS: 99214

== ENCOUNTER → 2023-09-05 11:14 | Outpatient (BNVA) | payer MEDICARE, SELFPAY | PROVIDERS: PCP Physician Assistant Medical; Visit Provider Internal Medicine Hypertension Specialist | DX: E11.65 Type 2 diabetes mellitus with hyperglycemia (principal); E11.42 Type 2 diabetes mellitus with diabetic polyneuropathy; I12.9 Hypertensive chronic kidney disease with stage 1 through stage 4 chronic kidney disease, or unspecified chronic kidney disease; N18.9 Chronic kidney disease, unspecified; K74.60 Unspecified cirrhosis of liver | CPT/HCPCS: 99212 ==

== ENCOUNTER 2023-09-28 12:18 | Outpatient (REF) | payer MEDICARE, SELFPAY ==
--- NOTE | ~2023-09-28 | US_ITS ---
EXAMINATION: US RETROPERITONEAL LIMITED (RENAL ONLY) CLINICAL INFORMATION: Chronic kidney disease, unspecified. COMPARISON: Ultrasound abdomen limited 05/04/2022 and 08/03/2021. CT abdomen and pelvis 10/11/2018. TECHNIQUE: Real-time imaging of the kidneys. Limited visualization due to bowel gas. FINDINGS: RIGHT KIDNEY: 14.6 x 5.4 x 5.0 cm (SAG x AP x TRV). No hydronephrosis. No renal calculi. Renal cortical thickness is normal. Limited visualization. Lobulated renal contour is difficult to evaluate as visualization is limited due to bowel gas. LEFT KIDNEY: 13.2 x 5.6 x 5.7 cm (SAG x AP x TRV). No hydronephrosis. No renal calculi. Renal cortical thickness is normal. Limited visualization. Lobulated renal contour is difficult to evaluate as visualization is limited due to bowel gas. US/US renal BI IMPRESSION: 1. No hydronephrosis. No renal calculi. 2. Lobulated renal contour is difficult to evaluate as visualization is limited due to bowel gas.
== END 2023-09-28 12:19 | disposition home or self-care (01) ==
LOC: HO.US 12:18
PROVIDERS: PCP Physician Assistant Medical; Visit Provider Internal Medicine Hypertension Specialist
DX: N18.9 Chronic kidney disease, unspecified (principal)
CPT/HCPCS: 76775

== ENCOUNTER 2023-10-03 10:08 | Outpatient (AMB) | payer MEDICARE, SELFPAY ==
[2023-10-03 10:12] VITALS: BP 178/96; PULSE 86; O2SAT 97
--- NOTE | 2023-10-03 10:12 | HO.NEPHOV ---
Vital Signs 10/03/23 10:12 Height 5 ft 9 in Weight 203 lb BMI 30.0 BP 178/96 H Blood Pressure Location Lt brachial Position Sitting Pulse 86 Pulse Source Pulse Oximeter Pulse Oximetry (%) 97 Oxygen Delivery Method Room Air Intake Visit Reasons: 2 mon follow up/ Conf Hand Zipper Trimmer Required: No Accompanied by: Self / Same As Patient Allergies lisinopril Allergy (Unknown, Verified 10/03/23 10:14) cough Medication List - Last Reconciled 10/03/23 by Tera Aguirre MD albuterol sulfate 90 mcg/actuation 1 inh inhalation QID amlodipine 5 mg PO DAILY atorvastatin 80 mg PO QDAY blood sugar diagnostic (FreeStyle Lite Strips) As directed four times a day cholecalciferol (vitamin D3) 50 mcg PO DAILY [insulin 62 units intradermal .after meals] insulin lispro (Humalog U-100 Insulin) 16 units subcut .before meals magnesium oxide 420 mg PO QDAY omeprazole 20 mg PO DAILY pen needle, diabetic (BD Ultra-Fine Yuliana Pen Needle) As directed four times a day valsartan 320 mg PO DAILY HPI Comments Details: 67 yr old man with long standing h/o HTN And DM for more than 5 years referred for CKD Creatinine was 1.2 in 2020. Creatinine has bumped up to 1.7 in June Currently on Bumex 0.5mg along with VAlsartan 320 mg PFSH Medical History Chronic idiopathic constipation Cirrhosis of liver Diabetes type 2, uncontrolled Essential hypertension GERD (gastroesophageal reflux disease) Hyperlipidemia LDL goal <100 Hypertriglyceridemia Tubular adenoma of colon Type 2 diabetes mellitus with diabetic polyneuropathy Surgical History History of penile implant History of gastric surgery H/O esophagogastroduodenoscopy Hx of colonoscopy (~10/2014) Family History Father No problems noted. Mother Esophageal cancer Maternal Grandfather Prostate cancer Diabetes Maternal Grandmother CVD (cardiovascular disease) Daughter Tubular adenoma Social History Household Members: Spouse Alcohol intake: current Alcohol intake frequency: former alcohol drinker Patient Tobacco Use Status: Former Tobacco user Physical Exam Vital Signs: Last Vital Signs Pulse 86 10/03/23 10:12 BP 178/96 H 10/03/23 10:12 Pulse Ox 97 10/03/23 10:12 Oxygen Delivery Method Room Air 10/03/23 10:12 BMI result Body Mass Index 30.0 Results Reviewed Nephrology Results: Hgb 11.3 g/dl (14.0-18.0) L 07/05/23 WBC 6.6 X10*3/uL (4.8-10.8) 07/05/23 Plt Count 216 X10*3/uL (160-400) 07/05/23 Sodium 138 mmol/L (135-145) 07/05/23 Potassium 4.2 mmol/L (3.3-5.1) 07/05/23 Chloride 102 mmol/L (96-108) 07/05/23 Carbon Dioxide 30 mmol/L (22-29) H 07/05/23 BUN 27 mg/dL (9-16) H 07/05/23 Creatinine 1.76 mg/dL (0.5-1.4) H 07/05/23 Calcium 8.7 mg/dL (8.4-10.2) 07/05/23 Renal US 09/28/23 Assessment & Plan Assessment & Plan (1) CKD (chronic kidney disease): Code(s): N18.9 - Chronic kidney disease, unspecified Category: Medical (2) Essential hypertension: Code(s): I10 - Essential (primary) hypertension Category: Medical (3) Cirrhosis of liver: Comment: 2019 hepatitis a B and C screens negative Code(s): K74.60 - Unspecified cirrhosis of liver Category: Medical (4) Type 2 diabetes mellitus with diabetic polyneuropathy: Code(s): E11.42 - Type 2 diabetes mellitus with diabetic polyneuropathy Category: Medical Plan . 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 No evidence of obstruction based on recent imaging Urine has been bland and AGN/AiN seem unlikely Goal is to slow the progression of renal disease Maintain BP < 130/80 and A1c < 7% Avoid nephrotoxins including NSAIDS Will benefit from SGLT-2 inhibitors Superimposed DEMI Cr is upto 1.8 Probably from hypoperfusion from the addition of NSAIDS AVOID NSAIDS If no improvement, will proceed with a kidney biopsy HTN BP sub optimal Decrease AMlodipine to 5 mg QD due to edema ADD Hydralazine 25 mg BID and titrate dose Orders: Orders Creatinine Urine 3 Weeks N18.9 - Chronic kidney disease, unspecified Parathyroid Hormone Intact 3 Weeks N18.9 - Chronic kidney disease, unspecified Prothrombin Time INR 3 Weeks N18.9 - Chronic kidney disease, unspecified Partial Thromboplastin Time 3 Weeks N18.9 - Chronic kidney disease, unspecified Basic Metabolic Panel 3 Weeks N18.9 - Chronic kidney disease, unspecified Total Protein Urine Random 3 Weeks N18.9 - Chronic kidney disease, unspecified Protein Electrophoresis, Serum 3 Weeks N18.9 - Chronic kidney disease, unspecified Medications: New hydralazine 25 mg PO BID 60 tabs 1RF Coding Level of Care Code Est Pt Level 4 (86454) Diagnoses CKD (chronic kidney disease) N18.9 Essential hypertension I10 Cirrhosis of liver K74.60 Type 2 diabetes mellitus with diabetic polyneuropathy E11.42
== END 2023-10-03 10:40 | disposition home or self-care (01) ==
PROVIDERS: PCP Physician Assistant Medical; Visit Provider Internal Medicine Hypertension Specialist
DX: I12.9 Hypertensive chronic kidney disease with stage 1 through stage 4 chronic kidney disease, or unspecified chronic kidney disease (principal); N18.9 Chronic kidney disease, unspecified; K74.60 Unspecified cirrhosis of liver; E11.42 Type 2 diabetes mellitus with diabetic polyneuropathy
CPT/HCPCS: 99214

== ENCOUNTER → 2023-10-03 10:08 | Outpatient (BNVA) | payer MEDICARE, SELFPAY | PROVIDERS: PCP Physician Assistant Medical; Visit Provider Internal Medicine Hypertension Specialist | DX: E11.22 Type 2 diabetes mellitus with diabetic chronic kidney disease (principal); I12.9 Hypertensive chronic kidney disease with stage 1 through stage 4 chronic kidney disease, or unspecified chronic kidney disease; N18.9 Chronic kidney disease, unspecified; E11.42 Type 2 diabetes mellitus with diabetic polyneuropathy; K74.60 Unspecified cirrhosis of liver | CPT/HCPCS: 99212 ==

== ENCOUNTER 2023-11-14 13:36 | Outpatient (AMB) | payer MEDICARE, SELFPAY ==
[2023-11-14 13:51] VITALS: BP 154/86; PULSE 84; O2SAT 98; BMI 28.9
--- NOTE | 2023-11-14 13:51 | HO.NEPHOV_ITS ---
Vital Signs 11/14/23 13:51 Height 5 ft 9 in Weight 196 lb BMI 28.9 BP 154/86 H Blood Pressure Location Lt brachial Position Sitting Pulse 84 Pulse Source Pulse Oximeter Pulse Oximetry (%) 98 Oxygen Delivery Method Room Air Intake Visit Reasons: r/s from Day Light Relief Operator Required: No Accompanied by: Self / Same As Patient Allergies lisinopril Allergy (Unknown, Verified 11/14/23 13:53) cough HPI Comments Details: 67 yr old man with long standing h/o HTN And DM for more than 5 years referred for CKD Creatinine was 1.2 in 2020. Creatinine has bumped up to 1.7 in June Currently on Bumex 0.5mg along with VAlsartan 320 mg PFSH Medical History Chronic idiopathic constipation Cirrhosis of liver Diabetes type 2, uncontrolled Essential hypertension GERD (gastroesophageal reflux disease) Hyperlipidemia LDL goal <100 Hypertriglyceridemia Tubular adenoma of colon Type 2 diabetes mellitus with diabetic polyneuropathy Surgical History History of penile implant History of gastric surgery H/O esophagogastroduodenoscopy Hx of colonoscopy (~10/2014) Family History Father No problems noted. Mother Esophageal cancer Maternal Grandfather Prostate cancer Diabetes Maternal Grandmother CVD (cardiovascular disease) Daughter Tubular adenoma Social History Household Members: Spouse Alcohol intake: current Alcohol intake frequency: former alcohol drinker Patient Tobacco Use Status: Former Tobacco user Physical Exam Vital Signs: Last Vital Signs Pulse 84 11/14/23 13:51 BP 154/86 H 11/14/23 13:51 Pulse Ox 98 11/14/23 13:51 Oxygen Delivery Method Room Air 11/14/23 13:51 BMI result Body Mass Index 28.9 Const General: comfortable; No acute distress Orientation/consciousness: patient oriented x3 Eyes General: appearance normal, both eyes and all related structures Visual Ozuna: normal visual ozuna by confrontation Neck Neck: Yes supple and Yes no JVD Resp Effort & Inspection: normal respiratory effort and respiratory effort not decreased Auscultation: rhonchi Cardio Palpation: no palpable S3 and no palpable S4 Heart sounds: no rubs GI Inspection: Yes normal to inspection Palpation (GI): Soft to palpation Percussion: Yes normal to percussion Auscultation: normal bowel sounds General: Yes no CVA tenderness Back/Spine/Pelvis Back: no CVA tenderness Skin General skin exam: no petechiae and no purpura Neuro General: patient oriented x3 and no focal motor deficits Extrem General: No clubbing and No edema Results Reviewed Nephrology Results: Hgb 10.2 g/dl (14.0-18.0) L 11/14/23 WBC 5.9 X10*3/uL (4.8-10.8) 11/14/23 Plt Count 242 X10*3/uL (160-400) 11/14/23 Sodium 135 mmol/L (135-145) 11/14/23 Potassium 4.3 mmol/L (3.3-5.1) 11/14/23 Chloride 104 mmol/L (96-108) 11/14/23 Carbon Dioxide 23 mmol/L (22-29) 11/14/23 BUN 25 mg/dL (9-16) H 11/14/23 Creatinine 2.38 mg/dL (0.5-1.4) H 11/14/23 Calcium 7.8 mg/dL (8.4-10.2) L 11/14/23 PTH Intact 255.9 pg/mL (8.7-77.1) H 11/14/23 Urine Protein >=1000 (4+) mg/dL (Neg-Trace) H 4 Urine Creatinine 101.44 mg/dL 11/14/23 Renal US 09/28/23 Assessment & Plan Assessment & Plan (1) CKD (chronic kidney disease): Code(s): N18.9 - Chronic kidney disease, unspecified Category: Medical (2) Essential hypertension: Code(s): I10 - Essential (primary) hypertension Category: Medical (3) Cirrhosis of liver: Comment: 2019 hepatitis a B and C screens negative Code(s): K74.60 - Unspecified cirrhosis of liver Category: Medical (4) Type 2 diabetes mellitus with diabetic polyneuropathy: Code(s): E11.42 - Type 2 diabetes mellitus with diabetic polyneuropathy Category: Medical Plan . 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 Panel 11/14/23 N18.9 - Chronic kidney disease, unspecified Hemoglobin A1c 11/14/23 N18.9 - Chronic kidney disease, unspecified Parathyroid Hormone Intact 11/14/23 N18.9 - Chronic kidney disease, unspecified CT biopsy renal RT Today N18.9 - Chronic kidney disease, unspecified Complete Blood Count Auto Diff 11/14/23 N18.9 - Chronic kidney disease, unspecified Medications: Changed From hydralazine 25 mg PO BID 60 tabs 1RF To hydralazine 50 mg PO BID 60 tabs 1RF Coding Level of Care Code Est Pt Level 4 (13896) Diagnoses CKD (chronic kidney disease) N18.9 Essential hypertension I10 Cirrhosis of liver K74.60 Type 2 diabetes mellitus with diabetic polyneuropathy E11.42
== END 2023-11-14 14:08 | disposition home or self-care (01) ==
PROVIDERS: PCP Physician Assistant Medical; Visit Provider Internal Medicine Hypertension Specialist
DX: I12.9 Hypertensive chronic kidney disease with stage 1 through stage 4 chronic kidney disease, or unspecified chronic kidney disease (principal); N18.9 Chronic kidney disease, unspecified; K74.60 Unspecified cirrhosis of liver; E11.42 Type 2 diabetes mellitus with diabetic polyneuropathy
CPT/HCPCS: 99214

== ENCOUNTER 2023-11-14 14:12 | Outpatient (REF) | payer MEDICARE, SELFPAY ==
[2023-11-14 18:13] LABS: Appearance Urine Clear; Color Urine Yellow; Glucose Urine UA >=1000 mg/dL (Negative); Leukocyte Esterase Urine Negative (Negative); Nitrite Urine Negative (Negative); UMIC TRIGGER UA YES; Urine Blood Small (1+) (Negative); Urine Ketones Negative (Negative); Urine Protein >=1000 (4+) mg/dL (Neg-Trace)
[2023-11-14 18:33] LABS: Bacteria Urine None Seen (None Seen); Hyaline Casts Urine 0-2 /LPF (0-2); Squamous Epithelial Cell Urine 0-2 /HPF (0-2); WBC Urine 0-5 /HPF (0-5)
[2023-11-14 18:35] LABS: MANUAL DIFF FLAG NO
[2023-11-14 18:37] LABS: Basophils Percent Auto 0.7 % (0-2); Eosinophils Absolute Auto 0.1 X10*3/uL (0.0-0.4); Eosinophils Percent Auto 2.2 % (0-4); Hemoglobin 10.2 g/dl (14.0-18.0); Imm Gran Abs Auto 0.01 X10*3/uL (0.00-0.03); Imm Gran Pct Auto 0.2 % (0.0-0.4); Lymphocytes Absolute Auto 1.7 X10*3/uL (1.2-4.9); Lymphocytes Percent Auto 29.3 % (20-40); Mean Corpuscular HGB Conc 35.2 g/dl (31.0-36.0); Mean Corpuscular Volume 93.9 fL (80.0-98.0); Mean Platelet Volume 10.7 fL (9.4-12.4); Monocytes Absolute Auto 0.5 X10*3/uL (0.1-1.2); Monocytes Percent Auto 7.7 % (2-11); Neutrophils Absolute Auto 3.5 x10*3/uL (2.0-8.3); Neutrophils Percent Auto 59.9 % (45-73); Platelet Count 242 X10*3/uL (160-400); Red Blood Count 3.09 X10*6/uL (4.60-5.80); Red Cell Distribution Width 12.3 % (11.0-16.0); White Blood Count 5.9 X10*3/uL (4.8-10.8)
[2023-11-14 19:02] LABS: Alanine Aminotransferase 31 U/L (0-40); Albumin Level 2.6 g/dL (3.5-5.0); Alkaline Phosphatase 216 U/L (39-117); Anion Gap 12 (12-20); Aspartate Amino Transferase 37 U/L (5-37); Bilirubin Total 0.4 mg/dL (0.0-1.0); Blood Urea Nitrogen 25 mg/dL (9-16); Calcium 7.8 mg/dL (8.4-10.2); Carbon Dioxide 23 mmol/L (22-29); Chloride 104 mmol/L (96-108); Estimated Average Glucose 160 mg/dL; Estimated Glomerular Filt Rate 27; Hemoglobin A1c % 7.2 % (<6.0); Potassium 4.3 mmol/L (3.3-5.1); Sodium 135 mmol/L (135-145); Total Protein 5.9 g/dL (6.5-8.0)
[2023-11-14 19:17] LABS: Creatinine Urine 101.44 mg/dL
[2023-11-14 19:32] LABS: Glucose Random 393 mg/dL (60-115)
[2023-11-14 19:55] LABS: Total Protein Urine Random 554 mg/dL (<12)
[2023-11-14 20:42] LABS: INTERNATIONAL NORM RATIO 0.9 (0.9-1.1); Prothrombin Time 11.4 SEC (11.1-13.3)
[2023-11-15 05:35] LABS: Parathyroid Hormone Intact 255.9 pg/mL (8.7-77.1)
[2023-11-16 20:44] LABS: Prot Elec - Albumin 2.4 g/dL (3.8-4.8); Prot Elec - Alpha1 0.3 g/dL (0.2-0.3); Prot Elec - Alpha2 0.8 g/dL (0.5-0.9); Prot Elec - Beta 1 0.4 g/dL (0.4-0.6); Prot Elec - Beta 2 0.5 g/dL (0.2-0.5); Prot Elec - Gamma 0.9 g/dL (0.8-1.7); Prot Elec - Total Protein 5.2 g/dL (6.1-8.1)
[2023-11-18 16:28] LABS: Vitamin D 25-OH, D2 <4 ng/mL; Vitamin D 25-OH, D3 24 ng/mL; Vitamin D 25-OH, Total 24 ng/mL (30-100)
== END 2023-11-14 14:13 | disposition home or self-care (01) ==
LOC: HO.HKASLDS 14:12
PROVIDERS: Visit Provider Internal Medicine Hypertension Specialist
DX: N18.30 Chronic kidney disease, stage 3 unspecified (principal); N05.9 Unspecified nephritic syndrome with unspecified morphologic changes; I10 Essential (primary) hypertension
CPT/HCPCS: 36415; 80053; 81001; 82306; 82570; 83036; 83970; 84156; 84165; 84300; 85025; 85610; 85730; 99212

== ENCOUNTER 2023-12-18 08:42 | Day surgery (SDC) | payer MEDICARE, SELFPAY ==
[2023-12-18] VITALS (15 sets, daily range): BP systolic 123–179; BP diastolic 52–92; PULSE 87–98; RESP 16; TEMP 36.1–36.7; O2SAT 95–98; BMI 25.8
--- NOTE | ~2023-12-18 | CT_ITS ---
Worsening renal function. Chronic kidney disease. Hypertension. Diabetes. PROCEDURES: 1. Limited preprocedure CT of the abdomen. Permanent images saved in PACS. 2. CT-guided nontargeted biopsy of the left kidney. 3. Limited postprocedure CT of the abdomen. Permanent images saved in PACS. CLINICIANS: Nahid Castañeda PA-C MEDICATIONS: -Versed 2 mg, Fentanyl 100 mcg, and lidocaine 1% 10 mL SQ, 20 mg hydralazine, 20 mg labetalol -Antibiotics: None -For additional details, please see nursing flowsheet. COMPLICATIONS: None ESTIMATED BLOOD LOSS: < 5 ml CONTRAST: None SPECIMENS: 3 x 18 g cores were placed in saline MODERATE SEDATION TIME: 35 min PROCEDURE NOTE: The procedure, risks, benefits, and alternatives were carefully explained to the patient and written informed consent was obtained. The patient was placed prone on the CT table. A timeout was performed. A limited CT of the abdomen was performed to localize the left kidney and choose appropriate needle entry and trajectory. The patient was prepped and draped in usual sterile fashion. The skin and deeper soft tissues were anesthetized with lidocaine. Under CT guidance, a 17 gague trocar needle was advanced to the left kidney. Once the patient's blood pressure was optimized to below 140/90, an 18 gauge biopsy device was inserted through the trocar needle advanced into the left lower pole of the kidney. A total of 3, 18 gague cores were performed. The specimen was placed in saline. A Gelfoam slurry was then administered through the trocar needle and into the left perinephric space. The needle was removed. A dry dressing was applied and secured with Tegaderm. There were no immediate complications. The patient was stable after the procedure and was transferred to the post anesthesia care unit. The procedure was done under moderate sedation with a dedicated nurse for monitoring of vital signs. CT/CT biopsy renal RT Impression: CT-guided nontargeted left renal biopsy This procedure was performed by Nahid Castañeda PA-C and supervised by Dr. Andersen. Electronically signed by: Dusty Andersen MD 12/27/2023 12:31 PM EDT Workstation: [id number]
[2023-12-18 09:40] LABS: Glucose, Whole Blood 387 mg/dL (60-115)
[2023-12-18] MEDS: Insulin Regular, Human 100 UNIT/ML 10 ML VIAL 10 UNIT IVPUSH (10:12)
--- NOTE | 2023-12-18 10:39 | MHC.SHP ---
Pre-Procedural Eval Section A - 24 Hr Update-Section A only Date of Service: 12/18/23 Section B - Complete if H&P > 30 days Chief Complaint: RT RENAL, CKD Details of Present Illness: 68 y/o man with HTN and DM and worsening renal function. Nephrology requests a kidney biopsy. Relevant Family History (Specify if Yes): No Relevant Social History: None Present Medications: see Short Stay Collaborative assessment Medical History: Significant History History of Previous Operations: Relevant previous surgery/procedure and date(s) Allergies: Allergies Allergy/AdvReac Type Severity Reaction Status Date / Time lisinopril Allergy Unknown cough Verified 11/14/23 13:53 Review of Systems Sugical H&P ROS: Negative: Constitution, Cardiovascular, Respiratory and Neurological Exam Surgical H&P Exam: Normal: Heart, Normal: Lungs, Normal: Abdomen, Normal: Skin and Normal: Neurological Plan 68 y/o man with worsening renal function in setting of HTN and DM -Image guided renal biopsy Time Spent With Patient Time: Total time managing care of this patient today ____ minutes.
[2023-12-18 10:40] LABS: Glucose, Whole Blood 363 mg/dL (60-115)
== END 2023-12-18 15:26 | disposition home or self-care (01) ==
PROVIDERS: Physician Assistant Surgical; Student in an Organized Health Care Education/Training Program; PCP Physician Assistant Medical; Visit Provider Internal Medicine Hypertension Specialist
DX: E11.22 Type 2 diabetes mellitus with diabetic chronic kidney disease (principal); E11.42 Type 2 diabetes mellitus with diabetic polyneuropathy; I12.9 Hypertensive chronic kidney disease with stage 1 through stage 4 chronic kidney disease, or unspecified chronic kidney disease; N18.9 Chronic kidney disease, unspecified; E78.5 Hyperlipidemia, unspecified; E78.1 Pure hyperglyceridemia; K21.9 Gastro-esophageal reflux disease without esophagitis; K74.60 Unspecified cirrhosis of liver; K59.04 Chronic idiopathic constipation; Z88.8 Allergy status to other drugs, medicaments and biological substances; Z87.891 Personal history of nicotine dependence
CPT/HCPCS: 50200; 77012; 82947; 86850; 86900; 86901; 88300; 88305; 88313; 88346; 88348; 88350; 99152; 99153; J0360; J1920; J2250; J2310; J3010

== ENCOUNTER → 2023-12-18 10:20 | Outpatient (BNV) | payer MEDICARE, SELFPAY | PROVIDERS: PCP Physician Assistant Medical; Visit Provider Student in an Organized Health Care Education/Training Program | DX: N18.9 Chronic kidney disease, unspecified (principal) | CPT/HCPCS: 50200; 77012 ==

== ENCOUNTER 2024-01-02 10:31 | Outpatient (AMB) | payer MEDICARE, SELFPAY ==
[2024-01-02 10:42] VITALS: BP 152/70; PULSE 102; O2SAT 96; BMI 29.8
--- NOTE | 2024-01-02 10:42 | HO.NEPHOV_ITS ---
Vital Signs 01/02/24 10:42 Height 5 ft 9 in Weight 202 lb BMI 29.8 BP 152/70 H Blood Pressure Location Lt brachial Position Sitting Pulse 102 H Pulse Source Pulse Oximeter Pulse Oximetry (%) 96 Oxygen Delivery Method Room Air Intake Visit Reasons: 4 wk follow up/ Conf Aeroplane Pilot Required: No Accompanied by: Self / Same As Patient Allergies lisinopril Allergy (Unknown, Verified 01/02/24 10:44) cough Medication List - Last Reconciled 01/02/24 by Tera Aguirre MD albuterol sulfate 90 mcg/actuation 1 inh inhalation QID amlodipine 5 mg PO DAILY atorvastatin 80 mg PO QDAY blood sugar diagnostic (FreeStyle Lite Strips) As directed four times a day cholecalciferol (vitamin D3) 50 mcg PO DAILY hydralazine 50 mg PO BID [insulin 62 units intradermal .after meals] insulin lispro (Humalog U-100 Insulin) 16 units subcut .before meals magnesium oxide 420 mg PO QDAY omeprazole 10 mg PO DAILY pen needle, diabetic (BD Ultra-Fine Yuliana Pen Needle) As directed four times a day valsartan 320 mg PO DAILY HPI Comments Details: 67 yr old man with long standing h/o HTN And DM for more than 5 years referred for CKD Creatinine was 1.2 in 2020. Creatinine has bumped up to 1.7 in June Currently on Bumex 0.5mg along with VAlsartan 320 mg 01/02/2024. 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 [facility] Medical History Chronic idiopathic constipation Cirrhosis of liver Diabetes type 2, uncontrolled Essential hypertension GERD (gastroesophageal reflux disease) Hyperlipidemia LDL goal <100 Hypertriglyceridemia Tubular adenoma of colon Type 2 diabetes mellitus with diabetic polyneuropathy Surgical History History of penile implant History of gastric surgery H/O esophagogastroduodenoscopy Hx of colonoscopy (~10/2014) Family History Father No problems noted. Mother Esophageal cancer Maternal Grandfather Prostate cancer Diabetes Maternal Grandmother CVD (cardiovascular disease) Daughter Tubular adenoma Social History Household Members: Spouse Alcohol intake: current Alcohol intake frequency: former alcohol drinker Patient Tobacco Use Status: Former Tobacco user Physical Exam Vital Signs: Last Vital Signs Pulse 102 H 01/02/24 10:42 BP 152/70 H 01/02/24 10:42 Pulse Ox 96 01/02/24 10:42 Oxygen Delivery Method Room Air 01/02/24 10:42 BMI result Body Mass Index 29.8 Const General: comfortable; No acute distress Orientation/consciousness: patient oriented x3 Eyes General: appearance normal, both eyes and all related structures Visual Cervantes: normal visual cervantes by confrontation Neck Neck: Yes supple and Yes no JVD Resp Effort & Inspection: normal respiratory effort and respiratory effort not decreased Auscultation: rhonchi Cardio Palpation: no palpable S3 and no palpable S4 Heart sounds: no rubs GI Inspection: Yes normal to inspection Palpation (GI): Soft to palpation Percussion: Yes normal to percussion Auscultation: normal bowel sounds General: Yes no CVA tenderness Back/Spine/Pelvis Back: no CVA tenderness Skin General skin exam: no petechiae and no purpura Neuro General: patient oriented x3 and no focal motor deficits Extrem General: No clubbing and No edema Results Reviewed Nephrology Results: Hgb 10.2 g/dl (14.0-18.0) L 11/14/23 WBC 5.9 X10*3/uL (4.8-10.8) 11/14/23 Plt Count 242 X10*3/uL (160-400) 11/14/23 Sodium 135 mmol/L (135-145) 11/14/23 Potassium 4.3 mmol/L (3.3-5.1) 11/14/23 Chloride 104 mmol/L (96-108) 11/14/23 Carbon Dioxide 23 mmol/L (22-29) 11/14/23 BUN 25 mg/dL (9-16) H 11/14/23 Creatinine 2.38 mg/dL (0.5-1.4) H 11/14/23 Calcium 7.8 mg/dL (8.4-10.2) L 11/14/23 PTH Intact 255.9 pg/mL (8.7-77.1) H 11/14/23 Urine Protein >=1000 (4+) mg/dL (Neg-Trace) H 4 Urine Creatinine 101.44 mg/dL 11/14/23 Renal US 09/28/23 Assessment & Plan Assessment & Plan (1) CKD (chronic kidney disease): Comment: Kidney biopsy on 12/18/2023 revealed nodular mesangial/diabetic glomerulosclerosis. Moderately active interstitial nephritis with eosinophils. Moderate chronic changes including global glomerulosclerosis 35%, tubular atrophy/interstitial fibrosis 30%. Vascular sclerosis moderate with focal hyalinosis. Code(s): N18.9 - Chronic kidney disease, unspecified Category: Medical (2) Essential hypertension: Code(s): I10 - Essential (primary) hypertension Category: Medical (3) Cirrhosis of liver: Comment: 2018 hepatitis a B and C screens negative Code(s): K74.60 - Unspecified cirrhosis of liver Category: Medical (4) Type 2 diabetes mellitus with diabetic polyneuropathy: Code(s): E11.42 - Type 2 diabetes mellitus with diabetic polyneuropathy Category: Medical Plan . 68 yr old man with CKD in a setting of DM and HTN Diabetic nephropathy by biopsy No evidence of obstruction based on recent imaging Will benefit from SGLT-2 inhibitors Added Farxiga 5 mg daily Since biopsy showed evidence of active interstitial nephritis I will stop omeprazole. Goal is to slow the progression of renal disease Maintain BP < 130/80 and A1c < 7% Avoid nephrotoxins including NSAIDS Superimposed DEMI Probably from hypoperfusion from the addition of NSAIDS/interstitial nephritis AVOID NSAIDS HTN BP sub optimal Amlodipine 5 mg QD due to edema/ Keep Valsartan Increase hydralazine to 50 mg PO TID Orders: Orders Basic Metabolic Panel Today Tera Aguirre MD N18.9 - Chronic kidney disease, unspecified Complete Blood Count Auto Diff Today Tera Aguirre MD N18.9 - Chronic kidney disease, unspecified Medications: New dapagliflozin propanediol (Farxiga) 5 mg PO DAILY 30 tabs 1RF Tera Aguirre MD Changed From omeprazole 20 mg PO DAILY 30 caps 6RF To omeprazole 10 mg PO DAILY July [employer] From hydralazine 50 mg PO BID 60 tabs 1RF To hydralazine 50 mg PO TID 90 tabs 1RF Tera Aguirre MD Coding Level of Care Code Est Pt Level 4 (50044) Complex EM visit Add On G2211 Diagnoses CKD (chronic kidney disease) N18.9 Essential hypertension I10 Cirrhosis of liver K74.60 Type 2 diabetes mellitus with diabetic polyneuropathy E11.42
== END 2024-01-02 11:06 | disposition home or self-care (01) ==
PROVIDERS: PCP Physician Assistant Medical; Visit Provider Internal Medicine Hypertension Specialist
DX: I12.9 Hypertensive chronic kidney disease with stage 1 through stage 4 chronic kidney disease, or unspecified chronic kidney disease (principal); N18.9 Chronic kidney disease, unspecified; K74.60 Unspecified cirrhosis of liver; E11.42 Type 2 diabetes mellitus with diabetic polyneuropathy
CPT/HCPCS: 99214; G2211

== ENCOUNTER → 2024-01-02 10:31 | Outpatient (BNVA) | payer MEDICARE, SELFPAY | PROVIDERS: PCP Physician Assistant Medical; Visit Provider Internal Medicine Hypertension Specialist | DX: I12.9 Hypertensive chronic kidney disease with stage 1 through stage 4 chronic kidney disease, or unspecified chronic kidney disease (principal); E11.22 Type 2 diabetes mellitus with diabetic chronic kidney disease; E11.42 Type 2 diabetes mellitus with diabetic polyneuropathy; K74.60 Unspecified cirrhosis of liver; N18.9 Chronic kidney disease, unspecified | CPT/HCPCS: 99212 ==

== ENCOUNTER 2024-01-16 12:53 | Outpatient (REF) | payer MEDICARE, SELFPAY ==
[2024-01-16 14:56] LABS: Appearance Urine Clear; Color Urine Yellow; Glucose Urine UA >=1000 mg/dL (Negative); Leukocyte Esterase Urine Negative (Negative); Nitrite Urine Negative (Negative); PH 5.5 (5.0-9.0); Specific Gravity - Urine 1.015 (1.005-1.025); UMIC TRIGGER UA YES; Urine Blood Negative (Negative); Urine Ketones Negative (Negative); Urine Protein 300 (3+) mg/dL (Neg-Trace)
[2024-01-16 15:02] LABS: MANUAL DIFF FLAG NO
[2024-01-16 15:08] LABS: Basophils Percent Auto 0.7 % (0-2); Eosinophils Absolute Auto 0.2 X10*3/uL (0.0-0.4); Eosinophils Percent Auto 4.3 % (0-4); Hematocrit 30.4 % (42.0-52.0); Hemoglobin 10.1 g/dl (14.0-18.0); Imm Gran Abs Auto 0.01 X10*3/uL (0.00-0.03); Imm Gran Pct Auto 0.2 % (0.0-0.4); Lymphocytes Absolute Auto 1.9 X10*3/uL (1.2-4.9); Mean Corpuscular HGB Conc 33.2 g/dl (31.0-36.0); Mean Corpuscular Hemoglobin 31.5 pg (27.0-33.0); Mean Corpuscular Volume 94.7 fL (80.0-98.0); Mean Platelet Volume 9.8 fL (9.4-12.4); Monocytes Absolute Auto 0.6 X10*3/uL (0.1-1.2); Monocytes Percent Auto 10.3 % (2-11); Neutrophils Absolute Auto 2.9 x10*3/uL (2.0-8.3); Neutrophils Percent Auto 51.5 % (45-73); Platelet Count 264 X10*3/uL (160-400); Red Blood Count 3.21 X10*6/uL (4.60-5.80); White Blood Count 5.6 X10*3/uL (4.8-10.8)
[2024-01-16 15:13] LABS: Bacteria Urine None Seen (None Seen); Hyaline Casts Urine 0-2 /LPF (0-2); RBC Urine 0-2 /HPF (0-2); Squamous Epithelial Cell Urine 0-2 /HPF (0-2); WBC Urine 0-5 /HPF (0-5)
[2024-01-16 15:25] LABS: Partial Thromboplastin Time 33.5 SEC (26.0-36.8)
[2024-01-16 16:13] LABS: Anion Gap 13 (12-20); Blood Urea Nitrogen 23 mg/dL (9-16); Calcium 8.8 mg/dL (8.4-10.2); Carbon Dioxide 27 mmol/L (22-29); Chloride 105 mmol/L (96-108); Estimated Glomerular Filt Rate 27; Glucose Random 200 mg/dL (60-115); Potassium 4.1 mmol/L (3.3-5.1); Sodium 141 mmol/L (135-145)
[2024-01-16 16:37] LABS: Parathyroid Hormone Intact 264.6 pg/mL (8.7-77.1)
[2024-01-16 16:46] LABS: Creatinine Urine 52.96 mg/dL
[2024-01-16 17:20] LABS: Total Protein Urine Random 300 mg/dL (<12)
== END 2024-01-16 12:54 | disposition home or self-care (01) ==
LOC: HO.HKASLDS 12:53
PROVIDERS: Visit Provider Internal Medicine Hypertension Specialist
DX: N18.9 Chronic kidney disease, unspecified (principal); N18.30 Chronic kidney disease, stage 3 unspecified; I10 Essential (primary) hypertension
CPT/HCPCS: 36415; 80048; 81001; 82570; 83970; 84156; 85025; 85730

== ENCOUNTER 2024-03-05 11:12 | Outpatient (AMB) | payer MEDICARE, SELFPAY ==
[2024-03-05 11:22] VITALS: BP 164/92; PULSE 105; O2SAT 98; BMI 29.4
--- NOTE | 2024-03-05 11:22 | HO.NEPHOV ---
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 Accompanied by: Self / Same As Patient Allergies lisinopril Allergy (Unknown, Verified 03/05/24 11:24) cough Medication List - Last Reconciled 03/05/24 by Tera Aguirre MD atorvastatin 80 mg PO QDAY blood sugar diagnostic (FreeStyle Lite Strips) As directed four times a day cholecalciferol (vitamin D3) 50 mcg PO DAILY dapagliflozin propanediol (Farxiga) 5 mg PO DAILY hydralazine 50 mg PO TID [insulin 62 units intradermal .after meals] insulin lispro (Humalog U-100 Insulin) 16 units subcut .before meals magnesium oxide 420 mg PO QDAY PRN omeprazole 10 mg PO DAILY pen needle, diabetic (BD Ultra-Fine Yuliana Pen Needle) As directed four times a day tamsulosin mg PO DAILY valsartan 320 mg PO DAILY HPI Comments Details: 67 yr old man with long standing h/o HTN And DM for more than 5 years referred for CKD Creatinine was 1.2 in 2020. Creatinine has bumped up to 1.7 in June Currently on Bumex 0.5mg along with VAlsartan 320 mg 01/02/2024. 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 03/05/24 c/o Itching and rash x 3-4 weeks Farxiga was started 6 weeks ago. cr upto 2.98! [facility] Medical History Chronic idiopathic constipation Cirrhosis of liver Diabetes type 2, uncontrolled Essential hypertension GERD (gastroesophageal reflux disease) Hyperlipidemia LDL goal <100 Hypertriglyceridemia Tubular adenoma of colon Type 2 diabetes mellitus with diabetic polyneuropathy Surgical History History of penile implant History of gastric surgery H/O esophagogastroduodenoscopy Hx of colonoscopy (~10/2014) Family History Father No problems noted. Mother Esophageal cancer Maternal Grandfather Prostate cancer Diabetes Maternal Grandmother CVD (cardiovascular disease) Daughter Tubular adenoma Social History Household Members: Spouse Alcohol intake: current Alcohol intake frequency: former alcohol drinker Patient Tobacco Use Status: Former Tobacco user Physical Exam Vital Signs: Last Vital Signs Pulse 105 H 03/05/24 11:22 Pulse Ox 98 03/05/24 11:22 Oxygen Delivery Method Room Air 03/05/24 11:22 BMI result Body Mass Index 29.4 Const General: comfortable; No acute distress Orientation/consciousness: patient oriented x3 Eyes General: appearance normal, both eyes and all related structures Visual Cervantes: normal visual cervantes by confrontation Neck Neck: Yes supple and Yes no JVD Resp Effort & Inspection: normal respiratory effort and respiratory effort not decreased Auscultation: rhonchi Cardio Palpation: no palpable S3 and no palpable S4 Heart sounds: no rubs GI Inspection: Yes normal to inspection Palpation (GI): Soft to palpation Percussion: Yes normal to percussion Auscultation: normal bowel sounds General: Yes no CVA tenderness Back/Spine/Pelvis Back: no CVA tenderness Skin General skin exam: no petechiae and no purpura Neuro General: patient oriented x3 and no focal motor deficits Extrem General: No clubbing and No edema Results Reviewed Nephrology Results: Hgb 10.1 g/dl (14.0-18.0) L 01/16/24 WBC 5.6 X10*3/uL (4.8-10.8) 01/16/24 Plt Count 264 X10*3/uL (160-400) 01/16/24 Sodium 141 mmol/L (135-145) 01/16/24 Potassium 4.1 mmol/L (3.3-5.1) 01/16/24 Chloride 105 mmol/L (96-108) 01/16/24 Carbon Dioxide 27 mmol/L (22-29) 01/16/24 BUN 23 mg/dL (9-16) H 01/16/24 Creatinine 2.40 mg/dL (0.5-1.4) H 01/16/24 Calcium 8.8 mg/dL (8.4-10.2) 01/16/24 PTH Intact 264.6 pg/mL (8.7-77.1) H 01/16/24 Urine Protein 300 (3+) mg/dL (Neg-Trace) H 01/16/24 Urine Creatinine 52.96 mg/dL 01/16/24 Renal US 09/28/23 Assessment & Plan Assessment & Plan (1) CKD (chronic kidney disease): Comment: Kidney biopsy on 12/18/2023 revealed nodular mesangial/diabetic glomerulosclerosis. Moderately active interstitial nephritis with eosinophils. Moderate chronic changes including global glomerulosclerosis 35%, tubular atrophy/interstitial fibrosis 30%. Vascular sclerosis moderate with focal hyalinosis. Code(s): N18.9 - Chronic kidney disease, unspecified Category: Medical (2) Essential hypertension: Code(s): I10 - Essential (primary) hypertension Category: Medical (3) Cirrhosis of liver: Comment: 2018 hepatitis a B and C screens negative Code(s): K74.60 - Unspecified cirrhosis of liver Category: Medical (4) Type 2 diabetes mellitus with diabetic polyneuropathy: Code(s): E11.42 - Type 2 diabetes mellitus with diabetic polyneuropathy Category: Medical Plan . 68 yr old man with CKD in a setting of DM and HTN Diabetic nephropathy by biopsy No evidence of obstruction based on recent imaging Will benefit from SGLT-2 inhibitors Added Farxiga 5 mg daily ( dec 2023) Since biopsy showed evidence of active interstitial nephritis- stopped omeprazole. Goal is to slow the progression of renal disease Maintain BP < 130/80 and A1c < 7% Avoid nephrotoxins including NSAIDS Superimposed DEMI Probably from hypoperfusion from the addition of NSAIDS/interstitial nephritis AVOID NSAIDS HTN BP sub optimal Amlodipine 5 mg QD due to edema/ Keep Valsartan Increase hydralazine to 50 mg PO TID 03/05/24 Rash- allelrgic reaction - ? Farxiga HOLD Farxiga Treat with a course of Prednisone Increase Hydralazine to 100 mg TID Orders: Orders Total Protein Urine Random 3 Months N18.9 - Chronic kidney disease, unspecified Basic Metabolic Panel 3 Months N18.9 - Chronic kidney disease, unspecified Complete Blood Count no Diff 3 Months N18.9 - Chronic kidney disease, unspecified Creatinine Urine 3 Months N18.9 - Chronic kidney disease, unspecified Basic Metabolic Panel 4 Weeks N18.9 - Chronic kidney disease, unspecified Medications: New prednisone 4 tabs a day for 3 days; 3 tabs a day for 3 days, 2 tabs a day for 3 days and 1 a day for 3 days. 10 mg PO DAILY 30 tabs 0RF Changed From hydralazine 50 mg PO TID 90 tabs 1RF To hydralazine 100 mg (2 x 50 mg) PO TID 180 tabs 1RF Discontinued dapagliflozin propanediol (Farxiga) Discontinued Reason: Doctor's Order 5 mg PO DAILY 30 tabs 1RF Coding Level of Care Code Est Pt Level 5 (68216) Complex EM visit Add On G2211 Diagnoses CKD (chronic kidney disease) N18.9 Essential hypertension I10 Cirrhosis of liver K74.60 Type 2 diabetes mellitus with diabetic polyneuropathy E11.42
== END 2024-03-05 11:50 | disposition home or self-care (01) ==
PROVIDERS: PCP Physician Assistant Medical; Visit Provider Internal Medicine Hypertension Specialist
DX: I12.9 Hypertensive chronic kidney disease with stage 1 through stage 4 chronic kidney disease, or unspecified chronic kidney disease (principal); E11.22 Type 2 diabetes mellitus with diabetic chronic kidney disease; N18.9 Chronic kidney disease, unspecified; K74.60 Unspecified cirrhosis of liver
CPT/HCPCS: 99214; G2211

== ENCOUNTER → 2024-03-05 11:12 | Outpatient (BNVA) | payer MEDICARE, SELFPAY | PROVIDERS: PCP Physician Assistant Medical; Visit Provider Internal Medicine Hypertension Specialist | DX: I12.9 Hypertensive chronic kidney disease with stage 1 through stage 4 chronic kidney disease, or unspecified chronic kidney disease (principal); E11.22 Type 2 diabetes mellitus with diabetic chronic kidney disease; E11.21 Type 2 diabetes mellitus with diabetic nephropathy; E11.42 Type 2 diabetes mellitus with diabetic polyneuropathy; N18.9 Chronic kidney disease, unspecified; K74.60 Unspecified cirrhosis of liver | CPT/HCPCS: 99212 ==

== ENCOUNTER 2024-04-09 10:31 | Outpatient (AMB) | payer MEDICARE, SELFPAY ==
[2024-04-09 10:34] VITALS: BP 166/82; PULSE 117; O2SAT 98; BMI 30.1
--- NOTE | 2024-04-09 10:34 | HO.NEPHOV_ITS ---
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: No Accompanied by: Self / Same As Patient Allergies lisinopril Allergy (Unknown, Verified 04/09/24 10:36) cough Medication List - Last Reconciled 04/09/24 by Tera Aguirre MD atorvastatin 80 mg PO QDAY blood sugar diagnostic (FreeStyle Lite Strips) As directed four times a day cholecalciferol (vitamin D3) 50 mcg PO DAILY hydralazine 100 mg (2 x 50 mg) PO TID [insulin 62 units intradermal .after meals] insulin lispro (Humalog U-100 Insulin) 16 units subcut .before meals magnesium oxide 420 mg PO QDAY PRN pen needle, diabetic (BD Ultra-Fine Yuliana Pen Needle) As directed four times a day prednisone 10 mg PO DAILY tamsulosin mg PO DAILY trospium 20 mg PO BID valsartan 320 mg PO DAILY HPI Comments Details: 67 yr old man with long standing h/o HTN And DM for more than 5 years referred for CKD Creatinine was 1.2 in 2020. Creatinine has bumped up to 1.7 in June Currently on Bumex 0.5mg along with VAlsartan 320 mg 01/02/2024. 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 03/05/24 c/o Itching and rash x 3-4 weeks ;Farxiga was started 6 weeks ago. cr upto 2.98! 04/09/24 Still with itching; Off Farxiga GAined 4 lbs c/o edema PFSH Medical History Chronic idiopathic constipation Cirrhosis of liver Diabetes type 2, uncontrolled Essential hypertension GERD (gastroesophageal reflux disease) Hyperlipidemia LDL goal <100 Hypertriglyceridemia Tubular adenoma of colon Type 2 diabetes mellitus with diabetic polyneuropathy Surgical History History of penile implant History of gastric surgery H/O esophagogastroduodenoscopy Hx of colonoscopy (~10/2014) Family History Father No problems noted. Mother Esophageal cancer Maternal Grandfather Prostate cancer Diabetes Maternal Grandmother CVD (cardiovascular disease) Daughter Tubular adenoma Social History Household Members: Spouse Alcohol intake: current Alcohol intake frequency: former alcohol drinker Patient Tobacco Use Status: Former Tobacco user Physical Exam Vital Signs: Last Vital Signs Pulse 117 H 04/09/24 10:34 BP 166/82 H 04/09/24 10:34 Pulse Ox 98 04/09/24 10:34 Oxygen Delivery Method Room Air 04/09/24 10:34 BMI result Body Mass Index 30.1 Comfortable Neck supple no JVD. Lungs entry equal no rales. Heart S1-S2 heard no gallop or rub. Abdomen soft nontender. Neuro alert awake oriented. No asterixis. Extremities 1 to 2 + edema. Results Reviewed Nephrology Results: Hgb 10.1 g/dl (14.0-18.0) L 01/16/24 WBC 5.6 X10*3/uL (4.8-10.8) 01/16/24 Plt Count 264 X10*3/uL (160-400) 01/16/24 Sodium 141 mmol/L (135-145) 01/16/24 Potassium 4.1 mmol/L (3.3-5.1) 01/16/24 Chloride 105 mmol/L (96-108) 01/16/24 Carbon Dioxide 27 mmol/L (22-29) 01/16/24 BUN 23 mg/dL (9-16) H 01/16/24 Creatinine 2.40 mg/dL (0.5-1.4) H 01/16/24 Calcium 8.8 mg/dL (8.4-10.2) 01/16/24 PTH Intact 264.6 pg/mL (8.7-77.1) H 01/16/24 Urine Protein 300 (3+) mg/dL (Neg-Trace) H 01/16/24 Urine Creatinine 52.96 mg/dL 01/16/24 Assessment & Plan Assessment & Plan (1) CKD (chronic kidney disease): Comment: Kidney biopsy on 12/18/2023 revealed nodular mesangial/diabetic glomeruloscler osis. Moderately active interstitial nephritis with eosinophils. Moderate chronic changes including global glomerulosclerosis 35%, tubular atrophy/interstitial fibrosis 30%. Vascular sclerosis moderate with focal hyalinosis. Code(s): N18.9 - Chronic kidney disease, unspecified Category: Medical (2) Essential hypertension: Code(s): I10 - Essential (primary) hypertension Category: Medical (3) Cirrhosis of liver: Comment: 2019 hepatitis a B and C screens negative Code(s): K74.60 - Unspecified cirrhosis of liver Category: Medical (4) Type 2 diabetes mellitus with diabetic polyneuropathy: Code(s): E11.42 - Type 2 diabetes mellitus with diabetic polyneuropathy Category: Medical Plan . 68 yr old man with CKD in a setting of DM and HTN Diabetic nephropathy by biopsy No evidence of obstruction based on recent imaging Will benefit from SGLT-2 inhibitors Added Farxiga 5 mg daily ( dec 2023) On Hold due to itching Since biopsy showed evidence of active interstitial nephritis- stopped omeprazole. Goal is to slow the progression of renal disease Maintain BP < 130/80 and A1c < 7% Avoid nephrotoxins including NSAIDS Superimposed DEMI Probably from hypoperfusion from the addition of NSAIDS/interstitial nephritis AVOID NSAIDS HTN BP sub optimal Amlodipine 5 mg QD due to edema/ Keep Valsartan Increase hydralazine to 50 mg PO TID 03/05/24 Rash- allelrgic reaction - ? Farxiga HOLD Farxiga Treat with a course of Prednisone Increase Hydralazine to 100 mg TID 04/09/24 BP sub optimal Probably hypervolemic too Add Bumex 0.5 mg QD Low salt diet Recheck labs in 3 weeks Orders: Orders Basic Metabolic Panel 3 Weeks N18.9 - Chronic kidney disease, unspecified Medications: New bumetanide 0.5 mg PO DAILY 30 tabs 1RF Discontinued prednisone 4 tabs a day for 3 days; 3 tabs a day for 3 days, 2 tabs a day for 3 days and 1 a day for 3 days. Discontinued Reason: Patient no longer taking 10 mg PO DAILY 30 tabs 0RF Coding Level of Care Code Est Pt Level 4 (05711) Complex EM visit Add On G2211 Diagnoses CKD (chronic kidney disease) N18.9 Essential hypertension I10 Cirrhosis of liver K74.60 Type 2 diabetes mellitus with diabetic polyneuropathy E11.42
== END 2024-04-09 10:55 | disposition home or self-care (01) ==
PROVIDERS: PCP Physician Assistant Medical; Visit Provider Internal Medicine Hypertension Specialist
DX: I12.9 Hypertensive chronic kidney disease with stage 1 through stage 4 chronic kidney disease, or unspecified chronic kidney disease (principal); N18.9 Chronic kidney disease, unspecified; K74.60 Unspecified cirrhosis of liver; E11.42 Type 2 diabetes mellitus with diabetic polyneuropathy
CPT/HCPCS: 99214; G2211

== ENCOUNTER → 2024-04-09 10:31 | Outpatient (BNVA) | payer MEDICARE, SELFPAY | PROVIDERS: PCP Physician Assistant Medical; Visit Provider Internal Medicine Hypertension Specialist | DX: E11.22 Type 2 diabetes mellitus with diabetic chronic kidney disease (principal); I12.9 Hypertensive chronic kidney disease with stage 1 through stage 4 chronic kidney disease, or unspecified chronic kidney disease; N18.9 Chronic kidney disease, unspecified; E11.42 Type 2 diabetes mellitus with diabetic polyneuropathy; K74.60 Unspecified cirrhosis of liver | CPT/HCPCS: 99212 ==

== ENCOUNTER 2024-06-10 12:32 | Outpatient (REF) | payer MEDICARE, SELFPAY ==
--- OUTSIDE RECORDS SUMMARY | 2024-06-10 13:25 | XMS_ITS | Encounter Summary ---
Author Organization [facility] Address [address] [facility] [address] [place] [address] Care Team Providers Care Warehousing Technician Name Role Phone Anel Padgett [facility] Primary Care Provider [phone] Encounter Details Date Type Department Care Team (Latest Contact Info) Description 05/14/2024 Travel Social History Tobacco Use Types Packs/Day Years Used Date Smoking Tobacco: Some Days Cigarettes Smokeless Tobacco: Never Alcohol Use Standard Drinks/Week Comments No 0 (1 standard drink = 0.6 oz pur e alcohol) Social Connections Answer Date Recorded Connectedness 1 05/06/2024 Financial Resource Strain Answer Date R ecorded Financial Resource Strain 1 2024 Stress Answer Date Recorded Stress 1 05/06/2024 Physical Activity Answer Date Recorded Physical Activity 0 02/27/2022 Food Insecurity Answer Date Recorded Food 1 05/06/2024 Transportation Needs Answer Date Record ed Transportation 1 05/06/2024 Housing Stability Answer Date Recorded Housing 1 05/06/2024 Safety and Environment Answer Date Naresh rded Safety 0 02/27/2022 Utilities Answer Date Recorded Utilities 1 05/06/2024 Employment Answer Date Recorded Stress 0 01/09/2024 Sex and Gender Information Value Date Recorded Sex Assigned at Male 02/26/2017 10:01 AM PST Legal Sex Male 11:36 AM PDT Gender Identity Male 02/26/2017 10:01 AM PST Sexual Orientation Straight 02/26/2017 10 :01 AM PST COVID-19 Exposure Response Date Recorded In the last 10 days, have yo u been in contact with someone who was confirmed or suspected to have Coronavirus/COVID-19? No / Unsure 05/14/2024 9:08 AM EST documented as of this encounter Plan of Treatment Upcoming Encounters Date Type Department Care Team (Late st Contact Info) Description 06/18/2024 9:00 AM EST Office Visit [facility] [address] [place] [address] Zain Sanchez, Sandrita [address] [place] [address] documented as of this encounter Visit Diagnoses Not on filedocumented in this encounter Additional Health Concerns Assessment Noted Time PHQ-9 Depression Total Score: 0 05/06/19 25 12:55 PM PST documented as of this encounter Care Teams Warehousing Technician Relationship Specialty Start Date End Date Anel Padgett FNP [address] [place] [address] PCP - General Internal Medicine 09/05/21 documented as of this encounter
--- OUTSIDE RECORDS SUMMARY | 2024-06-10 13:25 | XMS_ITS | Clinical Summary ---
Author Organization [facility] Address [address] [place] [address] Care Team Providers Care Career Development Engineer Name Role Phone Anel Padgett [facility] Primary Care Provider [phone] Source Comments PLEASE NOTE, if this patient is a minor, it may be UNLAWFUL to discuss sensitive information that is contained in these records (such as FAMILY PLANNING, MENTAL HEALTH or SUBSTANCE ABUSE) with the minor patient's parent or other person without the patient's specific authorization.[facility] Allergies Active Allergy Reactions Criticality Noted Date Comments Lisinopril Cough High 10/15/2023 Medications insulin aspart (NOVOLOG) 100 unit/mL injectionIndicati ons:Diabetes mellitus type 2 in nonobese ([facility]) Inject w/meals 70-100 NO u 101- 140 2 U, 141-180 3 U, 181-220 4 U, 221-260 6 U, 261-300 8 U, 301-350 10 U,351-400 12 ,>400 callMD 10 mL 5 7 Active insulin needles 31 gauge x 1/4 Indications:D iabetes mellitus type 2 in nonobese ([facility]) DX.E11.65 insulin injection 4 times a day 100 Each 11 7 Active lancetsIndication s:Diabetes mellitus type 2 in nonobese ([facility]) DX E11.65 . Blood sugar check 4 times a day 100 Each 7 Active aspirin [address] tabletIndications :Diabetes mellitus type 2 in nonobese ([facility]) Take 1 Tab by mouth once daily 8 Active insulin glargine (LANTUS) 100 unit/mL injectionIndicati ons:Diabetes mellitus type 2 in nonobese ([facility]) Inject 60 Units into the skin once daily 10 mL 5 8 Active linagliptin (TRADJENTA) 5 mg tabIndications:Di abetes mellitus type 2 in nonobese ([facility]) Take 1 Tab by mouth once daily 30 Tab 3 8 Active FREESTYLE LITE STRIPS stripsIndications :Diabetes mellitus type 2 in nonobese ([facility]) USE TO TEST BLOOD SUGAR THREE TIMES DAILY 100 Each 3 9 Active atorvastatin (LIPITOR) 80 mg tablet Take 80 mg by mouth nightly at bedtime Active hydrOXYzine HCL (ATARAX) 50 mg tablet Take 50 mg by mouth 3 (three) times daily as needed Active bismuth subsalicylate 525 mg/15 mL susp Take by mouth 4 Active insulin asp prt-insulin aspart (NOVOLOG MIX 70-30 U-100 INSULN) 100 unit/mL (70-30) injection Inject into the skin 4 Active hydrALAZINE (APRESOLINE) 50 mg tablet Take 100 mg by mouth 3 (three) times daily 4 Active glucose 4 gram chewable tablet Chew and swallow 16 g by mouth 4 Active cloNIDine (CATAPRES-TTS) 0.2 mg/[address] onto the skin 5 Active cholecalciferol (VITAMIN D-3) 50 mcg (2,000 unit) tablet Take 50 mcg by mouth 4 Active bumetanide (BUMEX) 0.5 mg tablet Take 0.5 mg by mouth once daily 4 Active insulin glargine-yfgn (SEMGLEE-YFGN) 100 unit/mL (3 mL) inpn Inject into the skin 4 Active valsartan (DIOVAN) 320 mg tablet Take 320 mg by mouth 4 Active diclofenac sodium (VOLTAREN) 1 % gelIndications:Ac sokaogon pain of right shoulder Apply 2 g topically 2 (two) times daily 150 g 5 Active acetaminophen (TYLENOL) 325 mg tabletIndications :Acute pain of right shoulder Take 1 Tablet by mouth every 6 (six) hours as needed for pain 30 Tablet 5 Active fluticasone (FLONASE) 50 mcg/actuation nasal sprayIndications: Nasal congestion Place 1 [place] in both nostrils once daily for 14 days 16 g 2 5 Active albuterol HFA 90 mcg/actuation inhalerIndication s:SOB (shortness of breath),Wheezing Inhale 2 Puffs into the lungs every 4 to 6 (four to six) hours as needed for shortness of breath or wheezing (cough/sob) 8 g 5 Active benzonatate (TESSALON) 100 mg capsuleIndication s:Cough, unspecified type Take 1 Capsule by mouth 3 (three) times daily as needed for cough 30 Capsule 5 Active cetirizine (ZYRTEC) 10 mg tabletIndications :Nasal congestion Take 1 Tablet by mouth once daily 90 Tablet 5 Active fluticasone (FLONASE) 50 mcg/actuation nasal spray Place into the nostril(s) 4 025 Discontin ued(Dupli deysi (E-Cancel Not Sent)) Active Problems Problem Noted Date Diagnosed Date Hx of colonoscopy 01/20/2017 Overview (01/20/2017): Colonoscopy done 11/11/14 at [facility] - small hiatus hernia with no evidence of reflux esophagitis , normal colonoscopy Endoscopy also done - DX superficial gastritis Diverticulitis of large intestine 04/05/2015 Overview (04/05/2015): Seen at [facility] 03/25/2015 for abdominal pain for 3 days. Treated with Levaquin,and flagyl . CT Scan : Wall thickening with Inflammatory changes surrounding junction of descending/sigmoid colon. Pt has history of Diverticulitis S/P Partial colon Resection 2-3 years ago. History of Negative Colonoscopy early 2014 at [facility] Facet arthropathy, lumbar 02/03/2015 Overview (02/03/2015): Sees spine. X-ray 12/05/2014 L4-L5 facet arthropathy. Undergoing PT. X- Ray hip normal H/O hypogonadism 01/19/2015 Overview (01/19/2015): Sees Urologist S/P TURP 02/25/2014 Overview (07/01/2017): Done 10/21/2013. Sees Urologist Hood Elizondo 05/25/17 - No show to Urology F/U DM type 2 (diabetes mellitus, type 2) ([facility]) 07/28/2013 Overview (09/10/2013): Pt sees Endo at [facility] Hyperlipidemia 07/28/2013 GERD (gastroesophageal reflux disease) 4 DM neuropathy, painful ([facility]) 07/28/2013 Diabetic eye exam ([facility]) 06/27/2013 Overview (06/27/2013): Pt has an eye exam on 06/20/2013, no diabetic retinopathy was detected Folliculitis 06/13/2013 Overview (06/23/2013): Seen in er for boil and sent home on doxycycline on 06/12/2013 HTN (hypertension) 06/13/2013 Active smoker 06/13/2013 Chronic kidney disease Encounters Date Type Department Care Team Description 05/14/2024 9:40 AM EST Office Visit [address] [address] Mary Osborne PA-C Cough, unspecified type (Primary Dx); SOB (shortness of breath); Nasal congestion; Wheezing; Anemia, unspecified type; Diabetes mellitus type 2, insulin dependent ([facility]) 05/14/2024 Travel 05/06/2024 1:00 PM EST Office Visit [address] [address] Mary Osborne PA-C Encounter to establish care (Primary Dx); Controlled type 2 diabetes mellitus without complication, with long-term current use of insulin ([facility]); Hypertension, unspecified type; Polypharmacy; Acute pain of right shoulder 05/06/2024 Travel from Last 3 Months Immunizations Name Administration Dates Next Due DTAP, UNSPECIFIED 11/25/2010 Flu, Adjuvant, 65y+ (Fluad) 01/15/2023, 2 Flu, Preservative Free 01/17/2021,01/07/2020,08/2018 INFLUENZA, SEASONAL, INJECTABLE 01/23/2018,02/14 INFLUENZA, UNSPECIFIED 02/01/2016,2014,01/14/2014,01/02,01/10/2012,02/23/2011,01/17/2011 ,01/21/2010,01/22/2009,01/28/2008,12/2006,03/14/2006,02/28/2005, 4,03/16/2003 Influenza (FLUZONE), high-do se, trivalent, PF 01/23/2024 MMR (MMR II/Priorix) 03/24/1996 MODERNA COVID-19 VACCINE BIV ALENT, BLUE CAP, 6M+ 01/31/2022 Moderna COVID-19 Vaccine, re d cap blue label, 12+ Primary Series 04/02/2021 PFIZER COVID VACCINE, PURPLE CAP, 12+ 07/20/2020 ,06/29/2020 PNEUMOCOCCAL CONJUGATE PCV 2 0 (Prevnar) 07/27/2022 PNEUMOCOCCAL POLYSACCHARIDE PPV23 07/22/2021,,09/30/2014 PNEUMOCOCCAL, UNSPECIFIED FORMULATION 03/14/2006 PPD 09/30/2014 RSV (Abrysvo), Bivalent, Pro tein Subunit Rsvpref, Diluent Reconstituted, 0.5 Ml, Pf 04/03/2023 TDAP 07/27/2022,09/30/2014 ZOSTER VACCINE, RECOMBINANT (SHINGRIX) 3 Zoster, Live Vaccine (Zostavax) 08/08/2017 Family History Medical History Relation Name Comments Hypertension Father Cancer Mother Hypertension Mother Relation Name Status Comments Brother Alive Father Mother Sister Alive Social History Tobacco Use Types Packs/Day Years Used Date Smoking Tobacco: Some Days Cigarettes Smokeless Tobacco: Never Tobacco Cessation:Ready to Q uit: Not Asked; Counseling Given: Not Answered Alcohol Use Standard Drinks/Week Comments No 0 [...] No / Unsure 05/14/2024 9:08 AM EST Last Filed Vital Signs Vital Sign Reading Time Taken Comments Blood Pressure 130/82 05/14/2024 9:18 AM EST Pulse 106 05/14/2024 9:18 AM EST Temperature 36.8 ??C (98.2 ??F) 05/14/2024 9:18 AM ES T Respiratory Rate 17 05/14/2024 9:18 AM EST Oxygen Saturation 98% 05/14/2024 9:18 AM EST Inhaled Oxygen Concentration - - Weight 97.1 kg (214 lb) 05/14/2024 9:18 AM EST Height 180.3 cm (5' 11 ) 05/14/2024 9:18 AM EST Body Mass Index 29.85 05/14/2024 9:18 AM EST Plan of Treatment Upcoming Encounters Date Type Department Care Team (Late st Contact Info) Description 06/18/2024 9:00 AM EST Office Visit [facility] [address] [place] [address] Zain Sanchez, PharmD [address] [place] [address] Health Maintenance Due Date Last Done Comments Dental Examination [address] CT Colonography 2001 FIT/gFOBT 2001 Fecal DNA 2001 Flexible Sigmoidoscopy 2001 Tobacco Cessation Counseling (#1) 06/13/2014 Medicare Annual Wellness Visit 08/08/2018 0 08/08/2017, 01/15/2017, 09/30/2014 Retinopathy Screening 09/26/2018 09/26/2017 (Managed by Outside Provider), 07/13/2015, 07/07/2014 (Managed by Outside Provider), Additional history exists Diabetes Foot Exam 07/09/2019 07/08/2018 (M anaged by Outside Provider), 03/04/2018 (Managed by Outside Provider), 07/20/2017 (Managed by Outside Provider), Additional history exists Abdominal Aortic Aneurysm Screening 2021 Falls Prevention 2021 Imm-Zoster, Recombinant (3 of 3) 04/25/2023 02/29/20 23, 08/08/2017 Colonoscopy 06/05/2024 06/05/2014 Colorectal Cancer Screening 06/05/2024 Diabetes HbA1c 11/03/2024 05/06/2024, 07/22, 02/27/2017, Additional history exists Diabetes Microalbumin (w/Creatinine) 05/06/2025 05/06/2024, 08/09/2017, 09/01/2016, Additional history exists Lipid Screening 05/06/2025 05/06/2024, 07/22, 09/01/2016, Additional history exists Serum Creatinine 05/06/2025 05/06/2024, , 08/09/2017, Additional history exists Imm-DTaP/Tdap/Td (4 - Td or Tdap) 07/27/2032 07/27/2022, 09/30/2014, 11/25/2010 Hepatitis C Screening Completed 02/27/2017 Imm-Pneumococcal 65+ Completed 07/27/2022, 07/22/2021, 12/07/2016, Additional history exists Ahl-MARMP-91 Completed 01/23/2024, 01/21, 04/02/2021, Additional history exists Imm-Influenza Completed 01/23/2024, 12/23, 03/15/2022, Additional history exists Alcohol and Drug Screen Completed 05/06/19, 01/15/2017, 09/30/2014 Depression Annual Screen Completed 05/06/2024 Procedures Procedure Name Priority Date/Time Associated Diagnosis Comments COVID-19, ID NOW, WEBER (POCT) Routine 05/14/2024 9:50 AM EST Cough, unspecified type INFLUENZA A AND B, ALERE (POCT) Routine 05/14/2024 9:43 AM EST Cough, unspecified type XR--RIGHT SHOULDER 2 OR MORE VIEWS ([id number]) Routine 05/07/2024 3:00 AM EST Acute pain of right shoulder MICROALBUMIN/CREATININ E RATIO, URINE, RANDOM Routine 05/06/2024 1:56 PM EST Encounter to establish care Controlled type 2 diabetes mellitus without complication, with long-term current use of insulin ([facility]) HGBA1C W/MPG Routine 05/06/2024 1:56 PM EST Encounter to establish care Controlled type 2 diabetes mellitus without complication, with long-term current use of insulin ([facility]) TSH W/RFLX FREE T4 Routine 05/06/2024 1: 56 PM EST Encounter to establish care LIPID PANEL Routine 05/06/2024 1:56 PM EST Encounter to establish care Controlled type 2 diabetes mellitus without complication, with long-term current use of insulin ([facility]) Hypertension, unspecified type COMPREHENSIVE METABOLIC PANEL Routine 05/06/2024 1:56 PM EST Encounter to establish care Controlled type 2 diabetes mellitus without complication, with long-term current use of insulin ([facility]) Hypertension, unspecified type BLOOD COUNT COMPLETE AUTO&AUTO DIFRNTL WBC Routine 05/06/2024 1:56 PM EST Encounter to establish care HEPATITIS A,B,C PANEL Routine 02/27/2017 11:10 AM EST Multiple joint pain from Last 3 Months or Most Recently Relevant to Health Maintenance Results * COVID-19, ID NOW, WEBER (POCT) (05/14/2024 9:50 AM EST) Pathologist [facility] COVID-19 NEGATIVE NEGATIVE [facility] POCT INTERNAL CONTROL PASS PASS [facility] PO[facility] Swab Nasal structure / Unknown 05/14/2024 9:50 AM EST Mary Osborne PA-C LAB - NO BLOOD DRAW Final R esult [facility] POCT * INFLUENZA A AND B, ALERE (POCT) (05/14/2024 9:43 AM EST) Pathologist [facility] INFLUENZA A NEGATIVE NEGATIVE [facility] POCT INFLUENZA B NEGATIVE NEGATIVE [facility] POCT INTERNAL CONTROL PASS PASS [facility] POCT NASAL Nasal structure / Unknown 05/14/2024 9:43 AM EST Mary Osborne PA-C LAB - NO BLOOD DRAW Final R esult [facility] PO[facility] * XR--RIGHT SHOULDER 2 OR MORE VIEWS ([id number]) (05/07/2024 3:00 AM EST) 05/07/2024 3:00 AM EST Mary Osborne PA-C IMG XRAY Final Resul t * (ABNORMAL) HGBA1C W/MPG (05/06/2024 1:56 PM EST) Pathologist [facility] HEMOGLOBIN A1C 7.4(H) <5.7 % of total Hgb [employer] Comment: For someone without known diabetes, a hemoglobin A1c value of 6.5% or greater indicates that they may have diabetes and this should be confirmed with a follow-up test. For someone with known diabetes, a value <7% indicates that their diabetes is well controlled and a value greater than or equal to 7% indicates suboptimal control. A1c targets should be individualized based on duration of diabetes, age, comorbid conditions, and other considerations. Currently, no consensus exists regarding use of hemoglobin A1c for diagnosis of diabetes for children. ?? MEAN PLASMA GLUCOSE 186 mg/dL (calc) [employer] [place] [employer] Blood Blood / Unknown 05/06/2024 1 :56 PM EST 05/06/2024 1:56 PM EST Narrative [employer] [facility] - 05/08/2024 5:49 PM EST FASTING:NO Mary Osborne PA-C LAB - BLOOD DRAW Edited Res t - Final Performing Organization Address [facility]/ZIP Co de Phone Number [employer] [address] [address], [employer] [address] [address] * TSH W/RFLX FREE T4 (05/06/2024 1:56 PM EST) TSH W/REFLEX TO FT4 2.18 0.40 - 4.50 mIU/L [employer] [facility] Blood Blood / Unknown 05/06/2024 1 :56 PM EST 05/06/2024 1:56 PM EST Narrative [employer] [facility] - 05/08/2024 5:49 PM EST FASTING:NO Mary Osborne PA-C LAB - BLOOD DRAW Edited [facility] - Final Performing Organization Address [facility] Co de Phone Number [employer] [address] [address], [employer] [address] [address] * (ABNORMAL) MICROALBUMIN/CREATININE RATIO, URINE, RANDOM (05/06/2024 1:56 PM EST) CREATININE, RANDOM URINE 37 20 - 320 mg/dL [employer] [facility] MICROALBUMIN 147.9 mg/dL [employer] [facility] Comment: Verified by repeat analysis. Reference Range Not established MICROALBUMIN/CREA TININE RATIO, RANDOM URINE 3,997(H) <30 mg/g creat [employer] [facility] Comment: The ADA defines abnormalities in albumin excretion as follows: Albuminuria Category ?Result (mg/g creatinine) Normal to Mildly increased ?? <30 Moderately increased ? 30-299 Severely increased ? > OR = 300 The ADA recommends that at least two of three specimens collected within a 3-6 month period be abnormal before considering a patient to be within a diagnostic category. Urine Urine specimen / Unknown 05/06/2024 1:56 PM EST 05/06/2024 1:56 PM EST Narrative [employer] - 05/08/2024 5:49 PM EST FASTING:NO Mary Osborne PA-C LAB - NO BLOOD DRAW Final R esult [employer] [address] [place] [id number], [employer] [address] [place] [phone] * (ABNORMAL) BLOOD COUNT COMPLETE AUTO&AUTO DIFRNTL WBC (05/06/2024 1:56 PM EST) WHITE BLOOD CELL COUNT 6.1 3.8 - 10.8 Thousand/ uL [employer] [facility] RED BLOOD CELL COUNT 3.21(L) 4.20 - 5.80 Million/u L [employer] HEMOGLOBIN 10.2(L) 13.2 - 17.1 g/dL [employer] [facility] HEMATOCRIT 31.4(L) 38.5 - 50.0 % [employer] MCV 97.8 80.0 - 100.0 fL [employer] MCH 31.8 27.0 - 33.0 pg [employer] MCHC 32.5 32.0 - 36.0 g/dL [employer] Comment: For adults, a slight decrease in the calculated MCHC value (in the range of 30 to 32 g/dL) is most likely not clinically significant; however, it should be interpreted with caution in correlation with other red cell parameters and the patient's clinical condition. RDW 10.9(L) 11.0 - 15.0 % [employer] PLATELET COUNT 228 140 - 400 Thousand/ uL [employer] MPV 10.7 7.5 - 12.5 fL [employer] [facility] ABSOLUTE NEUTROPHILS 3,520 1,500 - 7,800 cells/uL [employer] [facility] ABSOLUTE LYMPHOCYTES 1,806 850 - 3,900 cells/uL [employer] [facility] ABSOLUTE MONOCYTES 604 200 - 950 cells/uL [employer] [facility] ABSOLUTE EOSINOPHILS 153 15 - 500 cells/uL [employer] [facility] ABSOLUTE BASOPHILS 18 0 - 200 cells/uL [employer] [facility] NEUTROPHILS PCT 57.7 % QUES T [employer] [facility] LYMPHOCYTES 29.6 % [facility] [employer] [facility] MONOCYTES 9.9 % [facility] [employer] [facility] EOSINOPHILS 2.5 % [facility] [employer] [facility] BASOPHILS 0.3 % [facility] [employer] [facility] Blood Blood / Unknown 05/06/2024 1 :56 PM EST 05/06/2024 1:56 PM EST Narrative [employer] [facility] - 05/08/2024 5:49 PM EST FASTING:NO Mary Osborne PA-C LAB - BLOOD DRAW Edited Res ult - Final [employer] [facility] [address] [address], [employer] [address] [address] * (ABNORMAL) LIPID PANEL (05/06/2024 1:56 PM EST) CHOLESTEROL, TOTAL 122 <200 mg/dL [employer] [facility] HDL CHOLESTEROL 41 > OR = 40 mg/dL [employer] [facility] TRIGLYCERIDES 174(H) <150 mg/dL [employer] [facility] LDL-CHOLESTEROL 56 99 mg/dL (calc) [employer] [facility] Comment: Reference range: <100 Desirable range <100 mg/dL for primary prevention; ?? <70 mg/dL for patients with CHD or diabetic patients with > or = 2 CHD risk factors. LDL-C is now calculated using the Annalise calculation, which is a validated novel method providing better accuracy than the Friedewald equation in the estimation of LDL-C. Hola PHAN et al. KAUSHIK. 2013;310(19): 3460-0706 (http://education.Pathgather.Tyros/faq/DEG898) CHOL/HDLC RATIO 3.0 <5.0 (calc) [employer] [facility] NON-HDL CHOLESTEROL 81 <130 mg/dL (calc) [employer] [facility] Comment: For patients with diabetes plus 1 major ASCVD risk factor, treating to a non-HDL-C goal of <100 mg/dL (LDL-C of <70 mg/dL) is considered a therapeutic option. Blood Blood / Unknown 05/06/2024 1 :56 PM EST 05/06/2024 1:56 PM EST Narrative [employer] [facility] - 05/08/2024 5:49 PM EST FASTING:NO us Mary Osborne PA-C LAB - BLOOD DRAW Final Resu lt [employer] [facility] [address] [address], [employer] [facility] [address] [place] [address] * (ABNORMAL) COMPREHENSIVE METABOLIC PANEL (05/06/2024 1:56 PM EST) GLUCOSE 329(H) 65 - 139 mg/dL [employer] [facility] Comment: ?Non-fasting reference interval UREA NITROGEN (BUN) 39(H) 7 - 25 mg/dL [employer] [facility] CREATININE (blood) 2.99(H) 0.70 - 1.35 mg/dL [employer] [facility] EGFR 22(L) > OR = 60 mL/min/1. 73m2 [employer] [facility] BUN/CREATININE RATIO 13 6 - 22 (calc) [employer] [facility] SODIUM 133(L) 135 - 146 mmol/L [employer] [facility] POTASSIUM 4.4 3.5 - 5.3 mmol/L [employer] [facility] CHLORIDE 101 98 - 110 mmol/L [employer] [facility] CARBON DIOXIDE 22 20 - 32 mmol/L [employer] [facility] CALCIUM 8.4(L) 8.6 - 10.3 mg/dL [employer] [facility] PROTEIN, TOTAL 5.8(L) 6.1 - 8.1 g/dL [employer] [facility] ALBUMIN 3.2(L) 3.6 - 5.1 g/dL [employer] [facility] GLOBULIN 2.6 1.9 - 3.7 g/dL (calc) [employer] [facility] ALBUMIN/GLOBULI N RATIO 1.2 1.0 - 2.5 (calc) [facility] BILIRUBIN, TOTAL 0.3 0.2 - 1.2 mg/dL [employer] [facility] ALKALINE PHOSPHATASE 181(H) 35 - 144 U/L [facility] AST 25 10 - 35 U/L [facility] ALT 26 9 - 46 U/L [facility] Blood Blood / Unknown 05/06/2024 1 :56 PM EST 05/06/2024 1:56 PM EST Narrative [employer] [facility] - 05/08/2024 5:49 PM EST FASTING:NO Mary Osborne PA-C LAB - BLOOD DRAW Edited Res ult - Final Performing Organization Address City/[facility]/ZIP Co de Phone Number [employer] [address] [address], [employer] [address] [address] * HEPATITIS A,B,C PANEL (02/27/2017 11:10 AM EST) HEPATITIS B SURFACE ANTIBODY NEGATIVE NEGATIVE [facility] HEPATITIS B SURFACE ANTIGEN NEGATIVE NEGATIVE [facility] Comment: Over the counter supplements containing high doses of biotin may interfere with this assay. ??If interference is suspected, patients shoud be retested after refraining from biotin supplements for 72 hours. HEPATITIS C VIRUS DIAGNOSTIC NEGATIVE NEGATIVE [facility] HEPATITIS B CORE ANTIBODY NEGATIVE NEGATIVE [facility] HEPATITIS A ANTIBODY TOTAL NEGATIVE NEGATIVE [facility] Comment: Over the counter supplements containing high doses of biotin may interfere with this assay. ??If interference is suspected, patients shoud be retested after refraining from biotin supplements for 72 hours. Blood specimen (specimen) Blood / Unknown 02/27/2017 11:10 AM EST 02/27/2017 11:33 AM EST Narrative [facility] - 02/27/2017 4:19 PM EST [employer] [address] [place] [id number] [place] [id number] ORD# [id number] Gregor GRIFFITH LAB - BLOOD DRAW Edited Result - Final [facility] [address] [place] [address], from Last 3 Months or Most Recently Relevant to Health Maintenance Insurance [facility] [employer] [place] [address] [place] [address] [facility] Member Subscriber Plan / Payer (Ef fective 2021-Present) Name:WaldwickBurak baerey Relation to Subscriber:Self Name:Waldwick [place] Payer ID:[id number] Group ID:Not on file Type:Indemnity Address: [address] [place] [address] Care Teams Career Development Engineer Relationship Specialty Start Date End Date Aenl Padgett FNP [address] [place] [id number] PCP - General Internal Medicine 09/05/21
--- OUTSIDE RECORDS SUMMARY | 2024-06-10 13:25 | XMS_ITS | Encounter Summary ---
Author Organization [facility] Address [address] [place] [address] Care Team Providers Care Marine Biologist Name Role Phone Anel Padgett MARKETING RESEARCH ANALYST Primary Care Provider [phone] Reason for Referral * Diabetes (Routine) - Authorized Specialty Diagnoses / Procedures Referred By Andreea hardy Referred To Contact Clinical Pharmacology / Family Practice Diagnoses Diabetes mellitus type 2, insulin dependent ([facility]) Mary Osborne PA-C [address] [place] [id number] Phone: tel: fax: Zain Sanchez PharmD [address] [place] [address] Phone: tel: fax: Referral ID Status Reason Start Date Expiration Date Visits Requested Visits Authorized [id number] Authorized Continuity of Care 05/14/2024 05/14/2025 20 20 Question Answer Insulin Dependent? Yes Comments 68 year old male with DM type 2 insulin dependent Reason for Visit * Reason Comments Cough X4 days cough, chill s , wheezing, fatigue Encounter Details Date Type Department Care Team (Late st Contact Info) Description 05/14/2024 9:40 AM EST Office Visit [address] [id number] Mary Osborne PA-C [address] [place] [id number] Cough, unspecified type (Primary Dx); SOB (shortness of breath); Nasal congestion; Wheezing; Anemia, unspecified type; Diabetes mellitus type 2, insulin dependent ([facility]) Social History Tobacco Use Types Packs/Day Years [...] AM EST documented as of this encounter Last Filed Vital Signs Vital Sign Reading [...] Mass Index 29.85 05/14/2024 9:18 AM EST documented in this encounter Progress Notes * Mary Osborne PA-C - 05/14/2024 9:37 AM EST Subjective: CC: Cough (X4 days cough, chills , wheezing, fatigue) HPI: Modesto Rogers is a 68 year old male patient who presents for evaluation of URI symptoms. Patient reports nasal congestion, chest congestion, wheezing, sob, chills, dry cough, myalgias x 4 days. No fevers, N/V, diarrhea. Denies sick contacts. Allergies Allergen Reactions Lisinopril Cough Patient Active Problem List Diagnosis Folliculitis HTN (hypertension) Active smoker Diabetic eye exam ([facility]) DM type 2 (diabetes mellitus, type 2) ([facility]) Hyperlipidemia GERD (gastroesophageal reflux disease) DM neuropathy, painful ([facility]) S/P TURP H/O hypogonadism Facet arthropathy, lumbar Diverticulitis of large intestine Hx of colonoscopy Chronic kidney disease Current Outpatient Medications Medication Sig Dispense Refill albuterol HFA 90 mcg/actuation inhaler Inhale 2 Puffs into the lungs every 4 to 6 (four to six) hours as needed for shortness of breath or wheezing (cough/sob) 8 g 0 benzonatate (TESSALON) 100 mg capsule Take 1 Capsule by mouth 3 (three) times daily as needed for cough 30 Capsule 0 cetirizine (ZYRTEC) 10 mg tablet Take 1 Tablet by mouth once daily 90 Tablet 0 fluticasone (FLONASE) 50 mcg/actuation nasal spray Place 1 Moody in both nostrils once daily for 14days 16 g 2 acetaminophen (TYLENOL) 325 mg tablet Take 1 Tablet by mouth every 6 (six) hours as needed for pain30 Tablet 0 atorvastatin (LIPITOR) 80 mg tablet Take 80 mg by mouth nightly at bedtime bismuth subsalicylate 525 mg/15 mL susp Take by mouth bumetanide (BUMEX) 0.5 mg tablet Take 0.5 mg by mouth once daily cholecalciferol (VITAMIN D-3) 50 mcg (2,000 unit) tablet Take 50 mcg by mouth cloNIDine (CATAPRES-TTS) 0.2 mg/[address] onto the skin diclofenac sodium (VOLTAREN) 1 % gel Apply 2 g topically 2 (two) times daily 150 g 0 glucose 4 gram chewable tablet Chew and swallow 16 g by mouth hydrALAZINE (APRESOLINE) 50 mg tablet Take 100 mg by mouth 3 (three) times daily hydrOXYzine HCL (ATARAX) 50 mg tablet Take 50 mg by mouth 3 (three) times daily as needed insulin asp prt-insulin aspart (NOVOLOG MIX 70-30 U-100 INSULN) 100 unit/mL (70- 30) injection Inject into the skin insulin glargine-yfgn (SEMGLEE-YFGN) 100 unit/mL (3 mL) inpn Inject into the skin valsartan (DIOVAN) 320 mg tablet Take 320 mg by mouth FREESTYLE LITE STRIPS strips USE TO TEST BLOOD SUGAR THREE TIMES DAILY 100 Each 3 linagliptin (TRADJENTA) 5 mg tab Take 1 Tab by mouth once daily 30 Tab 3 insulin glargine (LANTUS) 100 unit/mL injection Inject 60 Units into the skin once daily 10 mL [address] tablet Take 1 Tab by mouth once daily insulin aspart (NOVOLOG) 100 unit/mL injection Inject w/meals 70-100 NO u 101- 140 2 U, 141-180 3 U, 181-220 4 U, 221-260 6 U, 261-300 8 U, 301-350 10 U,351- 400 12 ,>400 callMD 10 mL 5 insulin needles 31 gauge x 1/4 DX.E11.65 insulin injection 4 times a day 100 Each 11 lancets DX E11.65 . Blood sugar check 4 times a day 100 Each 11 No current facility-administered medications for this visit. Depression Screenin05/06/2024 12:55 PM How many times in the past year have you had 4 or more drinks in a day? NONE How many times in the past year have you used a recreational drug or used a prescription medicationfor nonmedical reasons? NONE Did patient decline PHQ screening? No Little interest or pleasure in doing things Not at all Feeling down, depressed or hopeless [include irritable if under 18] Not at all PHQ2 Score 0 Little interest or pleasure in doing things Not at all Feeling down, depressed or hopeless [include irritable if under 18] Not at all Trouble falling or staying asleep, or sleeping too much Not at all Feeling tired or having little energy Not at all Poor appetite or overeating Not at all Feeling bad about yourself - or that you are a failure or have let yourself or your family down Notat all Trouble concentrating on things like school work, reading or watching TV? Not at all Moving or speaking so slowly that other people could have noticed? Or the opposite - being so fidgety or restless that you have been moving around a lot more than usual Not at all Thoughts you would be better off or of hurting yourself in some way Not at all If you checked off any problems, how difficult have these problems made it for you to do your work,take care of things at home, or get along with other people? Not difficult at all PHQ-9 Total Score (Auto Calculated) 0 Depression Severity: None-minimal Objective: Vitals: Blood pressure 130/82, pulse (!) 106, temperature 98.2 ??F (36.8 ??C), temperature source Oral, resp. rate 17, height 5' 11 (1.803 m), weight 214 lb (97.1 kg), SpO2 98%. Physical Exam Constitutional: Appearance: Normal appearance. HENT: Head: Normocephalic and atraumatic. Right Ear: Tympanic membrane normal. Left Ear: Tympanic membrane normal. Mouth/Throat: Mouth: Mucous membranes are moist. Eyes: Pupils: Pupils are equal, round, and reactive to light. Cardiovascular: Rate and Rhythm: Normal rate and regular rhythm. Pulmonary: Effort: Pulmonary effort is normal. No respiratory distress. Breath sounds: Normal breath sounds. No stridor. No wheezing, rhonchi or rales. Chest: Chest wall: No tenderness. Abdominal: General: Abdomen is flat. Bowel sounds are normal. There is no distension. Tenderness: There is no abdominal tenderness. Musculoskeletal: General: Normal range of motion. Cervical back: Normal range of motion. Right lower leg: No edema. Left lower leg: No edema. Skin: General: Skin is warm and dry. Capillary Refill: Capillary refill takes less than 2 seconds. Neurological: General: No focal deficit present. Mental Status: He is alert. Psychiatric: Mood and Affect: Mood normal. Assessment/Plan: R05.9 Cough, unspecified type (primary encounter diagnosis) Plan : COVID-19, ID NOW, WEBER (POCT) - Negative INFLUENZA A AND B, ALERE (POCT) - Negative BENZONATATE 100 MG CAPSULE - Take 1 Capsule by mouth 3 (three) times daily as needed for cough R06.02 SOB (shortness of breath) Plan : ALBUTEROL SULFATE HFA 90 MCG/ACTUATION AEROSOL INHALER - Inhale 2 Puffs into the lungs every 4 to 6 (four to six) hours as needed for shortness of breath or wheezing (cough/sob) R09.81 Nasal congestion Plan : FLUTICASONE PROPIONATE 50 MCG/ACTUATION NASAL SPRAY,SUSPENSION - Place 1 Moody in both nostrils once daily for 14 days CETIRIZINE 10 MG TABLET - Take 1 Tablet by mouth once daily R06.2 Wheezing Plan : ALBUTEROL SULFATE HFA 90 MCG/ACTUATION AEROSOL INHALER - Inhale 2 Puffs into the lungs every 4 to 6 (four to six) hours as needed for shortness of breath or wheezing (cough/sob) - Etiology of symptoms most likely viral uri - Recommend increase in daily water intake - warm fluids, rest - Patient understands and agrees with the plan of care. Questions answered. If any new or worseningsymptoms/ if symptoms do not improve as expected, patient may report to the ER or call 911. Contingency to seek urgent/emergent care discussed. Return if symptoms worsen or fail to improve. Mary Osbrone PA-C documented in this encounter Miscellaneous Notes * Patient Instructions - Mary Osborne PA-C - 05/14/2024 9:38 AM EST If you are not able to keep your appointment please call 24-48 hours before your appointment to cancel or reschedule. [facility] [address] [place], [place] [phone] - If any new or worsening symptoms/ if symptoms do not improve as expected, patient may return to the clinic and or seek urgent/emergent care documented in this encounter Plan of Treatment Upcoming Encounters Date Type Department Care Team (Late st Contact Info) Description 06/18/2024 9:00 AM EST Office Visit [facility] [address] [place] [address] Zain Sanchez, PharmD [address] [place] [address] Scheduled Orders Name Type Priority Associated Diagnoses Orde r Schedule IRON, TIBC, FERRITIN PANEL Lab Routine Anemia, unspecified type Ordered: 05/14/2024 VITAMIN B12 & FOLATE Lab Routine Anemia, unspecified type Ordered: 05/14/2024 BLOOD COUNT COMPLETE AUTO&AUTO DIFRNTL WBC Lab Routine Anemia, unspecified type Ordered: 05/14/2024 HEMOGLOBINOPATHY EVALUATION, BLOOD Lab Routine Anemia, unspecified type Ordered: 05/14/2024 Scheduled Referrals Name Type Priority Associated Diagnoses Orde r Schedule REFERRAL TO DIABETES CLINIC Referral Routine Diabetes mellitus type 2, insulin dependent ([facility]) Ordered: 05/14/2024 documented as of this encounter Procedures Procedure Name Priority Date/Time Associated Diagnosis Comments COVID-19, ID NOW, WEBER (POCT) Routine 05/14/2024 9:50 AM EST Cough, unspecified type INFLUENZA A AND B, ALERE (POCT) Routine 05/14/2024 9:43 AM EST Cough, unspecified type documented in this encounter Results * COVID-19, ID NOW, WEBER (POCT) (05/14/2024 9:50 AM EST) COVID-19 NEGATIVE NEGATIVE [facility]- BACK OFFICE POCT INTERNAL CONTROL PASS PASS [facility]- BACK OFFICE POCT Swab Nasal structure / Unknown 05/14/2024 9:50 AM EST us Mary Osborne PA-C LAB - NO BLOOD DRAW Final R esult [facility]- BACK OFFICE POCT * INFLUENZA A AND B, ALERE (POCT) (05/14/2024 9:43 AM EST) INFLUENZA A NEGATIVE NEGATIVE [facility]- BACK OFFICE POCT INFLUENZA B NEGATIVE NEGATIVE [facility]- BACK OFFICE POCT INTERNAL CONTROL PASS PASS [facility]- BACK OFFICE POCT NASAL Nasal structure / Unknown 05/14/2024 9:43 AM EST us Mary Osborne PA-C LAB - NO BLOOD DRAW Final R esult [facility] BACK OFFICE POCT documented in this encounter Visit Diagnoses Diagnosis Cough, unspecified type- Primary SOB (shortness of breath) Shortness of breath Nasal congestion Other diseases of nasal cavity and sinuses Wheezing Anemia, unspecified type Diabetes mellitus type 2, insulin dependent ([facility]) Type II or unspecified type diabetes mellitus without mention of complication, not stated as uncontrolled documented in this encounter Additional Health Concerns Assessment Noted Time PHQ-9 Depression Total Score: 0 05/06/19 25 12:55 PM PST documented as of this encounter Care Teams Marine Biologist Relationship Specialty Start Date End Date Anel Padgett FNP [address] [place] [phone] PCP - General Internal Medicine 09/05/21 documented as of this encounter
--- OUTSIDE RECORDS SUMMARY | 2024-06-10 13:25 | XMS_ITS ---
Author Organization [facility] Address [address] [place] [address] Care Team Providers Care Product Examiner Name Role Phone Gregor Ruiz Primary Care Provider Unavailabl e Clinical, Operations Unavailable Unavailable ALLERGIES Allergen (clinical drug ingredient) Drug/Non Drug Allergy documented on EMR Reaction Allergy Type Onset Date Status lisinopril Lisinopril Unknown Drug Allergy Activ e REASON FOR VISIT MDS Assessment MEDICATIONS Medication SIG (Take, Route, Frequency, Duration) Notes Start Date End Date Status Magnesium - as directed Orally Once a day Active Insulin Glargine 100 UNIT/ML 62 units Subcutaneous At bedtime Active Insulin Aspart 100 UNIT/ML 22 units befo re breakfast, lunch and dinner Subcutaneous Three times a day Active Latanoprost 0.005 % 1 drop into affected eye in the evening Ophthalmic Once a day Active Valsartan 320 MG 1 tablet Orally Once a day Active metFORMIN HCl 500 MG 1 tablet with a meal Orally Once a day Active Tamsulosin HCl 0.4 MG 1 capsule Orally Once a day Active Diclofenac Sodium 1 % as directed Externally Active Bumetanide 1 MG 1 tablet Orally Once a day Active Vitamin D 50 MCG (2000 UT) 1 tablet Oral ly Once a day Active Pregabalin 100 MG 1 capsule Orally Once a day Member reports not using anymore Not-Taking Lidocaine 5 % 1 patch remove after 12 hours Externally Once a day Active Dicyclomine HCl 10 MG 1 capsules Orally Four times a day Member reports not using anymore Not-Taking Centrum Adults - as directed Orally Duplicate Not-Taking Carboxymethylcellulose Sod PF 0.5 % as directed Ophthalmic Four times a day Active Aspirin 81 81 MG 1 tablet Orally Once a day Member reports not using anymore Not-Taking Naproxen 500 MG 1 tablet with food or milk as needed Orally every 12 hrs Member reports not using anymore Not-Taking Trulicity 1.5 MG/0.5ML as directed Subcutaneous Member reports not using anymore, Switch to diffiennt Insulin Not-Taking Tresiba FlexTouch 200 UNIT/ML Sliding scale Subcutaneous Once a day Member reports not using anymore, switched to different Insulin Not-Taking hydroCHLOROthiazide 12.5 MG 1 capsule in the morning Orally Once a day Taking Valsartan Not-Taking Atorvastatin Calcium 80 MG 0.5 tablet Or ally Once a day Active amLODIPine Besylate 5 MG 1 tablet Orally Once a day Active Omeprazole 20 MG 1 capsule 30 minutes before morning meal Orally Once a day Active Multivitamin - 1 tablet Orally Once a day Active Encounters Encounter Location Date Provider Diagnosis [place] [id number] [address] 08/27/2023 Operations Clinical Folliculitis L73.9 ; Primary hypertension I10 ; [...] Unilateral primary osteoarthritis, right hip M16.11 ; prison (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 Z79.4 and Low back pain, unspecified back pain laterality, unspecified chronicity, unspecified whether sciatica present M54.50 ASSESSMENTS Encounter Date Diagnosis Assessment Notes Treatment Notes Treatment Clinical Notes 08/27/2023 Folliculitis (ICD-10 - L73.9) 08/27/2023 Primary hypertension (ICD-10 - I10) 08/27/2023 Cigarette nicotine dependence without complication (ICD-10 - F17.210) 08/27/2023 Type 2 diabetes mellitus without complication, without long-term current use of insulin (ICD-10 - E11.9) 08/27/2023 Hyperlipidemia, unspecified hyperlipidemia type (ICD-10 - E78.5) 08/27/2023 Gastroesophageal ref lux disease without esophagitis (ICD-10 - K21.9) 08/27/2023 Type 2 diabetes mellitus with diabetic neuropathy, without long-term current use of insulin (ICD-10 - E11.40) 08/27/2023 S/P TURP (ICD-10 - Z90.79) 08/27/2023 H/O hypogonadism (ICD-10 - Z86.39) 08/27/2023 Facet arthropathy, lumbar (ICD-10 - M47.816) 08/27/2023 Diverticulitis of la rge intestine, unspecified bleeding status, unspecified complication status (ICD-10 - K57.32) 08/27/2023 Secondary cataract o f both eyes, unspecified secondary cataract type (ICD-10 - H26.40) 08/27/2023 Left shoulder pain, unspecified chronicity (ICD-10 - M25.512) 08/27/2023 Bursitis of left shoulder (ICD-10 - M75.52) 08/27/2023 Other intervertebral disc degeneration, lumbar region (ICD-10 - M51.36) 08/27/2023 Spondylosis without myelopathy or radiculopathy, lumbar region (ICD-10 - M47.816) 08/27/2023 Dorsalgia, unspecifi ed (ICD-10 - M54.9) 08/27/2023 Chronic idiopathic constipation (ICD-10 - K59.04) 08/27/2023 Pain in right foot (ICD-10 - M79.671) 08/27/2023 Pain in left foot (ICD-10 - M79.672) 08/27/2023 Tinea unguium (ICD-1 0 - B35.1) 08/27/2023 Hepatic cirrhosis, unspecified hepatic cirrhosis type, unspecified whether ascites present (ICD-10 - K74.60) 08/27/2023 Cholesterolosis of gallbladder (ICD-10 - K82.4) 08/27/2023 Abdominal pain, unspecified site (ICD-10 - R10.9) 08/27/2023 Trigger thumb, left thumb (ICD-10 - M65.312) 08/27/2023 Benign prostatic hyperplasia with lower urinary tract symptoms, symptom details unspecified (ICD-10 - N40.1) 08/27/2023 Erectile dysfunction , unspecified erectile dysfunction type (ICD-10 - N52.9) 08/27/2023 Nocturia (ICD-10 - R35.1) 08/27/2023 Personal history of nicotine dependence (ICD-10 - Z87.891) 08/27/2023 Overweight (ICD-10 - E66.3) 08/27/2023 Glaucoma, unspecifie d glaucoma type, unspecified laterality (ICD-10 - H40.9) 08/27/2023 Major depressive disorder, recurrent, in full remission (ICD-10 - F33.42) 08/27/2023 Unilateral primary osteoarthritis, right hip (ICD-10 - M16.11) 08/27/2023 terminal makeup 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 (ICD-10 - Z79.4) 08/27/2023 Low back pain, unspecified back pain laterality, unspecified chronicity, unspecified whether sciatica present (ICD-10 - M54.50) PLAN OF TREATMENT No Information History and Physical Notes * HPI (History of Present Illness) Category Sub-Category Detail Notes Depression Screening PHQ-9 Little inte rest or pleasure in doing things: Not at all Feeling down, depressed, or hopeless: No t at all Trouble falling or staying asleep, or sl eeping too much: Not at all Feeling tired or having little energy: N ot at all Poor appetite or overeating: Not at all Feeling bad about yourself o r that you are a failure, or have let yourself or your family down: Not at all Trouble concentrating on thi ngs, such as reading the newspaper or watching television: Not at all Moving or speaking so slowly that other people could have noticed; or the opposite, being so fidgety or restless that you have been moving around a lot more than usual: Not at all Thoughts that you would be b memo off or of hurting yourself in some way: Not at all Total Score: 0 Virtual Care Visit Information Visit Location, Methods & Consent: *REQUIRED* Virtual Care communication method:: Phone (audio only) Patient's location during visit:: Member 's home Provider's location during visit:: Adarsh bernabe's home office Member Verbal Consent Obtained:: Yes
--- OUTSIDE RECORDS SUMMARY | 2024-06-10 13:25 | XMS_ITS ---
Author Organization [facility] liance Address [address] [place] [address] Care Team Providers Care Straw Hat Presser Name Role Phone Gregor Ruiz Primary Care Provider Unavailabl e Clinical, Operations Unavailable Unavailable ALLERGIES Allergen (clinical drug ingredient) Drug/Non Drug Allergy documented on EMR Reaction Allergy Type Onset Date Status lisinopril Lisinopril Unknown Drug Allergy Activ e REASON FOR VISIT MDS Assessment MEDICATIONS Medication SIG (Take, Route, Frequency, Duration) Notes Start Date End Date Status Dicyclomine HCl 10 MG 1 capsules Orally Four times a day Member reports not using anymore Not-Taking Pregabalin 100 MG 1 capsule Orally Once a day Member reports not using anymore Not-Taking Aspirin 81 81 MG 1 tablet Orally Once a day Member reports not using anymore Not-Taking Centrum Adults - as directed Orally Duplicate Not-Taking Naproxen 500 MG 1 tablet with food or milk as needed Orally every 12 hrs Member reports not using anymore Not-Taking Trulicity 1.5 MG/0.5ML as directed Subcutaneous Member reports not using anymore, Switch to diffiennt Insulin Not-Taking hydroCHLOROthiazide 12.5 MG 1 capsule in the morning Orally Once a day Taking Valsartan Not-Taking Tresiba FlexTouch 200 UNIT/ML Sliding scale Subcutaneous Once a day Member reports not using anymore, switched to different Insulin Not-Taking Omeprazole 20 MG 1 capsule 30 minutes before morning meal Orally Once a day Not-Taking amLODIPine Besylate 5 MG 1 tablet Orally Once a day states was d/c Not-Taking Multivitamin - 1 tablet Orally Once a day Active Atorvastatin Calcium 80 MG 0.5 tablet Or ally Once a day Active Insulin Glargine 100 UNIT/ML 62 units Subcutaneous At bedtime Active Valsartan 320 MG 1 tablet Orally Once a day Active metFORMIN HCl 500 MG 1 tablet with a meal Orally Once a day states was d/c Not-Taking Latanoprost 0.005 % 1 drop into affected eye in the evening Ophthalmic Once a day Active Insulin Aspart 100 UNIT/ML 22 units befo re breakfast, lunch and dinner Subcutaneous Three times a day Active Diclofenac Sodium 1 % as directed Externally Active Tamsulosin HCl 0.4 MG 1 capsule Orally Once a day Active Bumetanide 1 MG 1 tablet Orally Once a day Active hydrALAZINE HCl 50 MG 1 tablet with food Orally 3 times per day Active Lidocaine 5 % 1 patch remove after 12 hours Externally Once a day Active Magnesium Oxide 420 MG 1 tablet as needed Orally Once a day Active Carboxymethylcellulose Sod PF 0.5 % as directed Ophthalmic Four times a day Active Vitamin D 50 MCG (1999) 1 tablet Oral ly Once a day Active predniSONE 10 MG take 4 tabs daily for 3 day, then 3 tabs for 3 days, then 2 tabs for 3 days, then 1 tab for 3 days. Orally Once a day Active Farxiga 5 MG 1 tablet Orally Once a day Active PROBLEMS Problem Type ICD Code Onset Dates Problem Status W/U Status Risk SNOMED Code Notes Problem Tachycardia, unspecified (R00.0) Active confirmed [id number] Problem Hypertensive chronic kidney disease with stage 1 through stage 4 chronic kidney disease, or unspecified chronic kidney disease (I12.9) Active confirmed [id number] Encounters Encounter Location Date Provider Diagnosis [address] [address] 03/10/2024 Operations Clinical Folliculitis L73.9 ; Primary hypertension [...] Unilateral primary osteoarthritis, right hip M16.11 ; model 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 Z79.4 ; Low back pain, unspecified back pain laterality, unspecified chronicity, unspecified whether sciatica present M54.50 ; Hypertensive chronic kidney disease with stage 1 through stage 4 chronic kidney disease, or unspecified chronic kidney disease I12.9 and Tachycardia, unspecified R00.0 ASSESSMENTS Encounter Date Diagnosis Assessment Notes Treatment Notes Treatment Clinical Notes 03/10/2024 Folliculitis (ICD-10 - L73.9) 03/10/2024 Primary hypertension (ICD-10 - I10) 03/10/2024 Cigarette nicotine dependence without complication (ICD-10 - F17.210) 03/10/2024 Type 2 diabetes mellitus without complication, without long-term current use of insulin (ICD-10 - E11.9) 03/10/2024 Hyperlipidemia, unspecified hyperlipidemia type (ICD-10 - E78.5) 03/10/2024 Gastroesophageal ref lux disease without esophagitis (ICD-10 - K21.9) 03/10/2024 Type 2 diabetes mellitus with diabetic neuropathy, without long-term current use of insulin (ICD-10 - E11.40) 03/10/2024 S/P TURP (ICD-10 - Z90.79) 03/10/2024 H/O hypogonadism (ICD-10 - Z86.39) 03/10/2024 Facet arthropathy, lumbar (ICD-10 - M47.816) 03/10/2024 Diverticulitis of la rge intestine, unspecified bleeding status, unspecified complication status (ICD-10 - K57.32) 03/10/2024 Secondary cataract o f both eyes, unspecified secondary cataract type (ICD-10 - H26.40) 03/10/2024 Left shoulder pain, unspecified chronicity (ICD-10 - M25.512) 03/10/2024 Bursitis of left shoulder (ICD-10 - M75.52) 03/10/2024 Other intervertebral disc degeneration, lumbar region (ICD-10 - M51.36) 03/10/2024 Spondylosis without myelopathy or radiculopathy, lumbar region (ICD-10 - M47.816) 03/10/2024 Dorsalgia, unspecifi ed (ICD-10 - M54.9) 03/10/2024 Chronic idiopathic constipation (ICD-10 - K59.04) 03/10/2024 Pain in right foot (ICD-10 - M79.671) 03/10/2024 Pain in left foot (ICD-10 - M79.672) 03/10/2024 Tinea unguium (ICD-1 0 - B35.1) 03/10/2024 Hepatic cirrhosis, unspecified hepatic cirrhosis type, unspecified whether ascites present (ICD-10 - K74.60) 03/10/2024 Cholesterolosis of gallbladder (ICD-10 - K82.4) 03/10/2024 Abdominal pain, unspecified site (ICD-10 - R10.9) 03/10/2024 Trigger thumb, left thumb (ICD-10 - M65.312) 03/10/2024 Benign prostatic hyperplasia with lower urinary tract symptoms, symptom details unspecified (ICD-10 - N40.1) 03/10/2024 Erectile dysfunction , unspecified erectile dysfunction type (ICD-10 - N52.9) 03/10/2024 Nocturia (ICD-10 - R35.1) 03/10/2024 Personal history of nicotine dependence (ICD-10 - Z87.891) 03/10/2024 Overweight (ICD-10 - E66.3) 03/10/2024 Glaucoma, unspecifie d glaucoma type, unspecified laterality (ICD-10 - H40.9) 03/10/2024 Major depressive disorder, recurrent, in full remission (ICD-10 - F33.42) 03/10/2024 Unilateral primary osteoarthritis, right hip (ICD-10 - M16.11) 03/10/2024 model 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 (ICD-10 - Z79.4) 03/10/2024 Low back pain, unspecified back pain laterality, unspecified chronicity, unspecified whether sciatica present (ICD-10 - M54.50) 03/10/2024 Hypertensive chronic kidney disease with stage 1 through stage 4 chronic kidney disease, or unspecified chronic kidney disease (ICD-10 - I12.9) 03/10/2024 Tachycardia, unspecified (ICD-10 - R00.0) PLAN OF TREATMENT No Information History and [...] way: Not at all Total Score: 0 COVID-19 Screening (Question s Revised 08/25/2019) COVID-19 Screening Member or any household memb er has any new or worsening breathing problems:: No Member or any household memb er has other general or non-respiratory symptoms:: No Member or any household memb er has been in close contact with anyone diagnosed or suspected case of COVID:: No
--- OUTSIDE RECORDS SUMMARY | 2024-06-10 13:25 | XMS_ITS | Clinical Summary ---
Author Organization [address] [facility] Address [address] [place] [address] Phone Care Team Providers Care Graduate Teaching Assistant Name Role Phone Dayron Anel JUD Primary Care Provider [phone] Allergies Active Allergy Reactions Criticality Noted Date Comments Lisinopril Cough High 10/15/2023 Medications omeprazole (PriLOSEC) [address] capsule Route: Take 1 Capsule by mouth daily. - Oral Active valsartan (DIOVAN) 160 mg tablet Route: Take 1 Tablet by mouth daily. - Oral Active diclofenac (VOLTAREN) 1 % topical gel expireed 4 Active lisinopril-hydr oCHLOROthiazide (PRINZIDE,ZESTO RETIC) 10-12.5 mg per tablet Take 1 tablet by mouth daily. Active insulin glargine (Lantus U-100 Insulin) 100 unit/mL injection Route: Inject 50 Units into the skin. - Subcutaneous 7 Active HYDROcodone-hola taminophen (NORCO) 5-325 mg per tablet - Route: Take 1 Tablet by mouth. - Ora 8 Active aspirin 81 mg EC tablet Take 1 tablet (81 mg total) by mouth daily. 8 Active amoxicillin-cla vulanate (AUGMENTIN) 875-125 mg per tablet - Route: Take by mouth. - Oral 8 Active Active Problems Problem Noted Date Diagnosed Date Postoperative infection 05/19/2024 Trigger finger of right thumb 05/19/2024 Encounters Date Type Department Care Team Description 05/07/2024 12:15 PM EST - 05/07/2024 11:59 PM EST Hospital Encounter [facility] Xray [address] [place] [id number] Pain in right shoulder Discharge Disposition: Home or Self Care from Last 3 Months Social History Tobacco Use Types Packs/Day Years Used Date Smoking Tobacco: Never Assessed Sex and Gender Information Value Date Recorded Sex Assigned at Male 05/07/2024 12:12 PM EST Legal Sex Male 3:58 PM EST Gender Identity Male 05/07/2024 12:12 PM EST Sexual Orientation Straight 05/07/2024 12 :12 PM EST Plan of Treatment Upcoming Encounters Date Type Department Care Team (Late st Contact Info) Description 07/23/2024 2:15 PM EDT Consult Orthopedic Surgery - [place] [address] [id number] Sy Marie DPM [address] [address] Health Maintenance Due Date Last Done Comments Diabetes: Annual Foot Exam 1966 Diabetes: Annual Retina Eye Exam 1966 Hepatitis A Vaccines (1 of 2 - Risk 2-dose series) 07/13/1975 Hepatitis B Vaccines (1 of 3 - Risk 3-dose series) 2016 Abdominal Aortic Aneurysm (AAA) Screen 03/22/2022 Colorectal Cancer Screening: Colonoscopy 03/22/2022 Falls Risk Assessment 03/22/2022 Hepatitis C Screening 03/22/2022 Social Influencers of Health Screening 03/22/2022 Zoster Vaccines (3 of 3) 04/25/2023 02/28/2023, 07/22 Diabetes: Annual Urine Albumin-Creatinine Ratio (uACR) 05/07/2024 08/09/2017 Diabetes: Blood Sugar Control Test (HGBA1C) 11/03/2024 05/06/2024 Depression Screening 05/06/2025 05/06/2024 Diabetes: Annual GFR (Glomerular Filtration Rate) 05/06/2025 05/06/2024 Hypertension/CHF/CAD Annual BMP Blood Test 05/06/2025 05/06/2024 Cholesterol Screening (Lipid Panel) 05/06/2029 05/06/2024, 08/09/2017 DTaP,Tdap,and Td Vaccines (4 - Td or Tdap) 07/27/2032 07/27/2022, 09/30/2014, 11/25/2010 MMR Vaccines Aged Out 03/24/1996 No longer eligi ble based on patient's age to complete this topic Pneumococcal Vaccine: 50+ Years Completed 07/27/2022, 07/22/2021, 12/07/2016, Additional history exists RSV Immunization Patients 60+ Years Old Completed 04/03/2023 COVID-19 Vaccine Completed 01/23/2024, 02/2022, 04/02/2021, Additional history exists Influenza Vaccine Completed 01/23/2024, , 03/15/2022, Additional history exists HIB Vaccines Aged Out No longer eligi ble based on patient's age to complete this topic HPV Vaccines Aged Out No longer eligi ble based on patient's age to complete this topic IPV Vaccines Aged Out No longer eligi ble based on patient's age to complete this topic Meningococcal ACWY Vaccine Aged Out N o longer eligible based on patient's age to complete this topic Meningococcal B Vacine Aged Out No lo nger eligible based on patient's age to complete this topic RSV Immunization Patients Under 20 months Aged Out No longer eligible based on patient's age to complete this topic Varicella Vaccines Aged Out No longer eligible based on patient's age to complete this topic Procedures Procedure Name Priority Date/Time Associated Diagnosis Comments XR SHOULDER 2+ VIEWS RIGHT Routine 05/07/2024 12:32 PM EST Pain in right shoulder from Last 3 Months Results * XR Shoulder 2+ Views Right (05/07/2024 12:32 PM EST) Anatomical Region Laterality Modality Upper Extremities, Shoulder Right Radi ographic Imaging 05/08/2024 7:57 AM EST Impressions 05/08/2024 7:59 AM EST No acute findings. Mild chronic-appearing elevation of the lateral end of the right clavicle, possibly posttraumatic. Soft tissue calcification superior and inferior to the lateral aspect of the clavicle are likely posttraumatic in nature, possibly old calcified hematomas. Code 20992 -------- FINAL REPORT -------- Dictated By: Miguel Kunz Dictated Date: 05/08/2024 07:57 ET Assigned Physician: Miguel Kunz Reviewed and Electronically Signed By: Miguel Kunz Signed Date: 05/08/2024 07:59 ET Workstation ID: [id number] Transcribed By: Self Edit Transcribed Date: 05/08/2024 07:57 ET Narrative 05/08/2024 7:59 AM EST HISTORY: The patient is a 68-year-old male with acute onset of right shoulder pain, nontraumatic. FINDINGS: AP, right posterior oblique, and transscapular views of the right shoulder are obtained. The study demonstrates no fracture, dislocation, or arthritic change. There is mild elevation of the right clavicle relative to the acromion process, appearing chronic and likely consequent to old trauma. Soft tissue calcifications superior and inferior to the lateral aspect of the clavicle are likely posttraumatic in nature. Procedure Note Miguel Kunz MD - 05/08/2024 HISTORY: The patient is a 68-year-old male with acute onset of rightshoulder pain, nontraumatic. FINDINGS: AP, right posterior oblique, and transscapular views of theright shoulder are obtained. The study demonstrates no fracture,dislocation, or arthritic change. There is mild elevation of the rightclavicle relative to the acromion process, appearing chronic and likelyconsequent to old trauma. Soft tissue calcifications superior and inferiorto the lateral aspect of the clavicle are likely posttraumatic innature. IMPRESSION: No acute findings. Mild chronic-appearing elevation of the lateral end ofthe right clavicle, possibly posttraumatic. Soft tissue calcificationsuperior and inferior to the lateral aspect of the clavicle are likelyposttraumatic in nature, possibly old calcified hematomas. Code 95837 -------- FINAL REPORT -------- Dictated By: Miguel Kunz Dictated Date: 05/08/2024 07:57 ET Assigned Physician: Miguel Kunz Reviewed and Electronically Signed By: Miguel Kunz Signed Date: 05/08/2024 07:59 ET Workstation ID: [id number] Transcribed By: Self Edit Transcribed Date: 05/08/2024 07:57 ET us Mary SUBRAMANIAN IMG XR PROCEDURES Final Resul t from Last 3 Months Insurance [facility] Member Subscriber Plan / Payer (Ef fective 2021-Present) Name:Modesto Rogers Relation to Subscriber:Self Name:Modesto Rogers Payer ID:[id number] Group ID:[id number] Type:Not on file Address: [place] [address] [address] [phone] Care Teams Graduate Teaching Assistant Relationship Specialty Start Date End Date Anel Padgett NP [address] [place] [address] PCP - General Nurse Practitioner 05/07/24
--- OUTSIDE RECORDS SUMMARY | 2024-06-10 13:26 | XMS_ITS ---
Author Organization [facility] liance Address [address] [place] [address] Care Team Providers Care Public Housing Interviewer Name Role Phone Gregor Ruiz Primary Care Provider Kathya Arceo Unavailable [phone] ALLERGIES Allergen (clinical drug ingredient) Drug/Non Drug [...] 1 tablet Orally Once a day Active Centrum Adults - as directed Orally Member reports not using anymore is using One Day Not-Taking Insulin Aspart 100 UNIT/ML as directed Subcutaneous Active Atorvastatin Calcium 80 MG 0.5 tablet Orally Once a day Active Latanoprost 0.005 % 1 drop into affected eye in the evening Ophthalmic Once a day Active Insulin Glargine 100 UNIT/ML as directed Subcutaneous Active Magnesium - as directed Orally Active Naproxen 500 MG 1 tablet with [...] Not-Taking Encounters Encounter Location Date Provider Diagnosis [facility] [address] [address] 08/15/2023 Kathya Nupolu Folliculitis L73.9 ; Primary hypertension I10 [...] Unilateral primary osteoarthritis, right hip M16.11 ; terminologist (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 Z79.4 and Low back pain, unspecified back pain laterality, unspecified chronicity, unspecified whether sciatica present M54.50 ASSESSMENTS Encounter Date Diagnosis Assessment Notes Treatment Notes Treatment Clinical Notes 08/15/2023 Folliculitis (ICD-10 - L73.9) 08/15/2023 Primary hypertension (ICD-10 - I10) 08/15/2023 Cigarette nicotine dependence without complication (ICD-10 - F17.210) 08/15/2023 Type 2 diabetes mellitus without complication, without long-term current use of insulin (ICD-10 - E11.9) 08/15/2023 Hyperlipidemia, unspecified hyperlipidemia type (ICD-10 - E78.5) 08/15/2023 Gastroesophageal ref lux disease without esophagitis (ICD-10 - K21.9) 08/15/2023 Type 2 diabetes mellitus with diabetic neuropathy, without long-term current use of insulin (ICD-10 - E11.40) 08/15/2023 S/P TURP (ICD-10 - Z90.79) 08/15/2023 H/O hypogonadism (ICD-10 - Z86.39) 08/15/2023 Facet arthropathy, lumbar (ICD-10 - M47.816) 08/15/2023 Diverticulitis of la rge intestine, unspecified bleeding status, unspecified complication status (ICD-10 - K57.32) 08/15/2023 Secondary cataract o f both eyes, unspecified secondary cataract type (ICD-10 - H26.40) 08/15/2023 Left shoulder pain, unspecified chronicity (ICD-10 - M25.512) 08/15/2023 Bursitis of left shoulder (ICD-10 - M75.52) 08/15/2023 Other intervertebral disc degeneration, lumbar region (ICD-10 - M51.36) 08/15/2023 Spondylosis without myelopathy or radiculopathy, lumbar region (ICD-10 - M47.816) 08/15/2023 Dorsalgia, unspecifi ed (ICD-10 - M54.9) 08/15/2023 Chronic idiopathic constipation (ICD-10 - K59.04) 08/15/2023 Pain in right foot (ICD-10 - M79.671) 08/15/2023 Pain in left foot (ICD-10 - M79.672) 08/15/2023 Tinea unguium (ICD-1 0 - B35.1) 08/15/2023 Hepatic cirrhosis, unspecified hepatic cirrhosis type, unspecified whether ascites present (ICD-10 - K74.60) 08/15/2023 Cholesterolosis of gallbladder (ICD-10 - K82.4) 08/15/2023 Abdominal pain, unspecified site (ICD-10 - R10.9) 08/15/2023 Trigger thumb, left thumb (ICD-10 - M65.312) 08/15/2023 Benign prostatic hyperplasia with lower urinary tract symptoms, symptom details unspecified (ICD-10 - N40.1) 08/15/2023 Erectile dysfunction , unspecified erectile dysfunction type (ICD-10 - N52.9) 08/15/2023 Nocturia (ICD-10 - R35.1) 08/15/2023 Personal history of nicotine dependence (ICD-10 - Z87.891) 08/15/2023 Overweight (ICD-10 - E66.3) 08/15/2023 Glaucoma, unspecifie d glaucoma type, unspecified laterality (ICD-10 - H40.9) 08/15/2023 Major depressive disorder, recurrent, in full remission (ICD-10 - F33.42) 08/15/2023 Unilateral primary osteoarthritis, right hip (ICD-10 - M16.11) 08/15/2023 terminologist (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 (ICD-10 - Z79.4) [...] protections under the law. [facility]'s virtual care platforms are HIPAA compliant and meet other (federal and state) privacy and security laws. Even though your communications with [facility] are private and secure, there is always some risk with any information that is transmitted through the internet.
[2024-06-10 17:58] LABS: Appearance Urine Clear; Color Urine Yellow; Glucose Urine UA >=1000 mg/dL (Negative); Leukocyte Esterase Urine Negative (Negative); Nitrite Urine Negative (Negative); PH 6.5 (5.0-9.0); UMIC TRIGGER UA YES; Urine Blood Trace (Negative); Urine Ketones Negative (Negative); Urine Protein 300 (3+) mg/dL (Neg-Trace)
[2024-06-10 17:58] LABS: Hematocrit 29.8 % (42.0-52.0); Hemoglobin 9.9 g/dl (14.0-18.0); Mean Corpuscular HGB Conc 33.2 g/dl (31.0-36.0); Mean Corpuscular Hemoglobin 30.7 pg (27.0-33.0); Mean Corpuscular Volume 92.5 fL (80.0-98.0); Mean Platelet Volume 11.3 fL (9.4-12.4); Platelet Count 203 X10*3/uL (160-400); Red Blood Count 3.22 X10*6/uL (4.60-5.80); Red Cell Distribution Width 10.8 % (11.0-16.0); White Blood Count 5.3 X10*3/uL (4.8-10.8)
[2024-06-10 18:21] LABS: Creatinine Urine 45.81 mg/dL
[2024-06-10 18:23] LABS: Anion Gap 14 (12-20); Blood Urea Nitrogen 34 mg/dL (9-16); Calcium 8.4 mg/dL (8.4-10.2); Carbon Dioxide 22 mmol/L (22-29); Chloride 102 mmol/L (96-108); Estimated Glomerular Filt Rate 22; Potassium 4.4 mmol/L (3.3-5.1); Sodium 134 mmol/L (135-145)
[2024-06-10 18:26] LABS: Bacteria Urine None Seen (None Seen); Hyaline Casts Urine 0-2 /LPF (0-2); Squamous Epithelial Cell Urine 0-2 /HPF (0-2); WBC Urine 0-5 /HPF (0-5)
[2024-06-10 18:27] LABS: Glucose Random 489 mg/dL (60-115)
[2024-06-10 18:34] LABS: Total Protein Urine Random 341 mg/dL (<12)
== END 2024-06-10 12:33 | disposition home or self-care (01) ==
LOC: HO.HKASLDS 12:32
PROVIDERS: Visit Provider Internal Medicine Hypertension Specialist
DX: N18.9 Chronic kidney disease, unspecified (principal)
CPT/HCPCS: 36415; 80048; 81001; 82570; 84156; 85027

== ENCOUNTER 2024-06-11 10:43 | Outpatient (AMB) | payer MEDICARE, SELFPAY ==
[2024-06-11 10:54] VITALS: BP 172/88; PULSE 112; O2SAT 97; BMI 28.1
--- NOTE | 2024-06-11 10:54 | HO.NEPHOV_ITS ---
Vital Signs 06/11/24 10:54 Height 5 ft 9 in Weight 190 lb BMI 28.1 BP 172/88 H Blood Pressure Location Lt brachial Position Sitting Pulse 112 H Pulse Source Pulse Oximeter Pulse Oximetry (%) 97 Oxygen Delivery Method Room Air Intake Visit Reasons: 2mon follow up w/labs/ LVM Materials Planning Manager Required: No Accompanied by: Self / Same As Patient Allergies lisinopril Allergy (Unknown, Verified 06/11/24 10:56) cough Medication List - Last Reconciled 06/11/24 by Tera Aguirre MD albuterol sulfate 90 mcg/actuation inhalation atorvastatin 80 mg PO QDAY blood sugar diagnostic (FreeStyle Lite Strips) As directed four times a day bumetanide 0.5 mg PO DAILY cholecalciferol (vitamin D3) 50 mcg PO DAILY hydralazine 100 mg (2 x 50 mg) PO TID [insulin 62 units intradermal .after meals] insulin lispro (Humalog U-100 Insulin) 16 units subcut .before meals magnesium oxide 420 mg PO QDAY PRN pen needle, diabetic (BD Ultra-Fine Yuliana Pen Needle) As directed four times a day tamsulosin mg PO DAILY trospium 20 mg PO BID valsartan 320 mg PO DAILY HPI Comments Details: 67 yr old man with long standing h/o HTN And DM for more than 5 years referred for CKD Creatinine was 1.2 in 2020. Creatinine has bumped up to 1.7 in June Currently on Bumex 0.5mg along with VAlsartan 320 mg 01/02/2024. 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 03/05/24 c/o Itching and rash x 3-4 weeks ;Farxiga was started 6 weeks ago. cr upto 2.98! 04/09/24 Still with itching; Off Farxiga; GAined 4 lbs ; c/o edema 06/11/24 Still has itching Has been taking Hydralazine QD instead of TID Lost 10-14 lbs with Bumex [facility] Medical History Chronic idiopathic constipation Cirrhosis of liver Diabetes type 2, uncontrolled Essential hypertension GERD (gastroesophageal reflux disease) Hyperlipidemia LDL goal <100 Hypertriglyceridemia Tubular adenoma of colon Type 2 diabetes mellitus with diabetic polyneuropathy Surgical History History of penile implant History of gastric surgery H/O esophagogastroduodenoscopy Hx of colonoscopy (~10/2014) Family History Father No problems noted. Mother Esophageal cancer Maternal Grandfather Prostate cancer Diabetes Maternal Grandmother CVD (cardiovascular disease) Daughter Tubular adenoma Social History Household Members: Spouse Alcohol intake: current Alcohol intake frequency: former alcohol drinker Patient Tobacco Use Status: Former Tobacco user Physical Exam Vital Signs: Last Vital Signs Pulse 112 H 06/11/24 10:54 BP 172/88 H 06/11/24 10:54 Pulse Ox 97 06/11/24 10:54 Oxygen Delivery Method Room Air 06/11/24 10:54 BMI result Body Mass Index 28.1 Comfortable Neck supple no JVD. Lungs entry equal no rales. Heart S1-S2 heard no gallop or rub. Abdomen soft nontender. Neuro alert awake oriented. No asterixis. Extremities 1 to 2 + edema. Results Reviewed Nephrology Results: Hgb 9.9 g/dl (14.0-18.0) L 06/10/24 WBC 5.3 X10*3/uL (4.8-10.8) 06/10/24 Plt Count 203 X10*3/uL (160-400) 06/10/24 Sodium 134 mmol/L (135-145) L 06/10/24 Potassium 4.4 mmol/L (3.3-5.1) 06/10/24 Chloride 102 mmol/L (96-108) 06/10/24 Carbon Dioxide 22 mmol/L (22-29) 06/10/24 BUN 34 mg/dL (9-16) H 06/10/24 Creatinine 2.92 mg/dL (0.5-1.4) H 06/10/24 Calcium 8.4 mg/dL (8.4-10.2) 06/10/24 PTH Intact 264.6 pg/mL (8.7-77.1) H 01/16/24 Urine Protein 300 (3+) mg/dL (Neg-Trace) H 06/10/24 Urine Creatinine 45.81 mg/dL 06/10/24 Assessment & Plan Assessment & Plan (1) CKD (chronic kidney disease): Comment: Kidney biopsy on 12/18/2023 revealed nodular mesangial/diabetic glomerulosclerosis. Moderately active interstitial nephritis with eosinophils. Moderate chronic changes including global glomerulosclerosis 35%, tubular atrophy/interstitial fibrosis 30%. Vascular sclerosis moderate with focal hyalinosis. Code(s): N18.9 - Chronic kidney disease, unspecified Category: Medical (2) Essential hypertension: Code(s): I10 - Essential (primary) hypertension Category: Medical (3) Cirrhosis of liver: Comment: 2018 hepatitis a B and C screens negative Code(s): K74.60 - Unspecified cirrhosis of liver Category: Medical (4) Type 2 diabetes mellitus with diabetic polyneuropathy: Code(s): E11.42 - Type 2 diabetes mellitus with diabetic polyneuropathy Category: Medical Plan . 68 yr old man with CKD in a setting of DM and HTN Diabetic nephropathy by biopsy No evidence of obstruction based on recent imaging Will benefit from SGLT-2 inhibitors Added Farxiga 5 mg daily ( dec 2023) On Hold due to itching Since biopsy showed evidence of active interstitial nephritis- stopped omeprazole. Goal is to slow the progression of renal disease Maintain BP < 130/80 and A1c < 7% Avoid nephrotoxins including NSAIDS Superimposed DEMI Probably from hypoperfusion from the addition of NSAIDS/interstitial nephritis AVOID NSAIDS Cr bumped up DC Bumex HTN BP sub optimal Restart Amlodipine 5 mg QD / Keep Valsartan Keep Hydralazine to 100 mg TID Rash- allelrgic reaction - ? Farxiga HOLD Farxiga Treated with a course of Prednisone - No improvement Hydroxyzine 10 mg PRN Orders: Orders Basic Metabolic Panel 6 Weeks N18.9 - Chronic kidney disease, unspecified Medications: New amlodipine 5 mg PO DAILY 90 tabs 1RF hydroxyzine HCl 10 mg PO DAILY PRN 30 tabs 1RF itching Discontinued bumetanide Discontinued Reason: Doctor's Order 0.5 mg PO DAILY 30 tabs 1RF Coding Level of Care Code Est Pt Level 5 (50241) Diagnoses CKD (chronic kidney disease) N18.9 Essential hypertension I10 Cirrhosis of liver K74.60 Type 2 diabetes mellitus with diabetic polyneuropathy E11.42
--- OUTSIDE RECORDS SUMMARY | 2024-06-11 11:21 | XMS_ITS | Encounter Summary ---
Author Organization [facility] Address [address] [place] [address] Care Team Providers Care Label Stamper Name Role Phone Anel Padgett [facility] Primary Care Provider [phone] Encounter Details Date Type Department Care Team [...] EST Office Visit [facility] [address] [place] [address] Zain Sanchez, Sandrita [address] [place] [address] documented as of this encounter Visit Diagnoses Not on filedocumented in this encounter Additional Health Concerns Assessment Noted Time PHQ-9 Depression Total Score: 0 05/06/19 25 12:55 PM PST documented as of this encounter Care Teams Label Stamper Relationship Specialty Start Date End Date Anel Padgett FNP [address] [place] [address] PCP - General Internal Medicine 09/05/21 documented as of this encounter
--- OUTSIDE RECORDS SUMMARY | 2024-06-11 11:21 | XMS_ITS | Clinical Summary ---
Author Organization [facility] Address [address] [place] [address] Phone Care Team Providers Care General Ophthalmologist Name Role Phone Dayron Anel JUD Primary Care Provider [phone] Allergies Active Allergy Reactions Criticality Noted Date [...] - 05/07/2024 11:59 PM EST Hospital Encounter [facility] Xray [address] [place] [phone] Pain in right shoulder Discharge Disposition: Home [...] 2:15 PM EDT Consult Orthopedic Surgery - [place] [address] [phone] Sy Marie, VALENTINA [address] [address] Health Maintenance Due Date Last Done Comments Diabetes: Annual Foot Exam 1965 Diabetes: Annual Retina Eye Exam 1965 Hepatitis A Vaccines (1 of 2 - Risk 2-dose series) 07/13/1975 Hepatitis B Vaccines (1 of 3 - Risk 3-dose series) 2016 Abdominal Aortic Aneurysm (AAA) Screen 03/22/2022 Colorectal Cancer Screening: Colonoscopy 03/22/2022 Falls Risk Assessment 03/22/2022 Hepatitis C Screening 03/22/2022 Medicare Annual Wellness Visit 03/22/2022 Social Influencers of Health Screening 03/22/2022 [...] in nature, possibly old calcified hematomas. Code 31822 -------- FINAL REPORT -------- Dictated By: Miguel Kunz Dictated Date: 05/08/2024 07:57 ET Assigned Physician: Miguel Kunz Reviewed and Electronically Signed By: Miguel Kunz Signed Date: 05/08/2024 07:59 ET Workstation ID: [id number] Transcribed By: Self Edit Transcribed Date: 05/08/2024 [...] in nature, possibly old calcified hematomas. Code 42982 -------- FINAL REPORT -------- Dictated By: Miguel Kunz Dictated Date: 05/08/2024 07:57 ET Assigned Physician: Miguel Kunz Reviewed and Electronically Signed By: Miguel Kunz Signed Date: 05/08/2024 07:59 ET Workstation ID: [id number] Transcribed By: Self Edit Transcribed Date: 05/08/2024 07:57 ET Mary SUBRAMANIAN IMG XR PROCEDURES Final Resul t from Last 3 Months Insurance [employer] MED[employer]ARE Member Subscriber Plan / Payer (Ef fective 2021-Present) Name:Modesto Rogers Relation to Subscriber:Self Name:Modesto Rogers Payer ID:[id number] Group ID:[id number] Type:Not on file Address: [facility] [place] [address] Care Teams General Ophthalmologist Relationship Specialty Start Date End Date Anel Padgett NP [address] [place] [id number] PCP - General Nurse Practitioner 05/07/24
--- OUTSIDE RECORDS SUMMARY | 2024-06-11 11:21 | XMS_ITS | Clinical Summary ---
Author Organization [facility] Address [address] [place] [address] Care Team Providers Care Canvas Cutter Machine Name Role Phone Anel Padgett [facility] Primary Care Provider [phone] Source Comments PLEASE NOTE, if this patient [...] injectionIndicati ons:Diabetes mellitus type 2 in nonobese ([facility]) Inject w/meals 70-100 NO u 101- 140 2 U, 141-180 3 U, 181-220 4 U, 221-260 6 U, 261-300 8 U, 301-350 10 U,351-400 12 ,>400 callMD 10 mL 5 7 Active insulin needles 31 gauge x 1/4 Indications:D iabetes mellitus type 2 in nonobese ([facility]) DX.E11.65 insulin injection 4 times a day 100 Each 11 7 Active lancetsIndication s:Diabetes mellitus type 2 in nonobese ([facility]) DX E11.65 . Blood sugar check 4 times a day 100 Each 7 Active aspirin [address] tabletIndications :Diabetes mellitus type 2 in nonobese ([facility]) Take 1 Tab by mouth once daily 8 Active insulin glargine (LANTUS) 100 unit/mL injectionIndicati ons:Diabetes mellitus type 2 in nonobese ([facility]) Inject 60 Units into the skin once daily 10 mL 5 8 Active linagliptin (TRADJENTA) 5 mg tabIndications:Di abetes mellitus type 2 in nonobese ([facility]) Take 1 Tab by mouth once daily 30 Tab 3 8 Active FREESTYLE LITE STRIPS stripsIndications :Diabetes mellitus type 2 in nonobese ([facility]) USE TO TEST BLOOD SUGAR THREE TIMES [...] Active diclofenac sodium (VOLTAREN) 1 % gelIndications:[place] pain of right shoulder Apply 2 g topically 2 (two) times daily 150 g 5 Active acetaminophen (TYLENOL) 325 mg tabletIndications :Acute pain of right shoulder Take 1 Tablet by mouth every 6 (six) hours as needed for pain 30 Tablet 5 Active fluticasone (FLONASE) 50 mcg/actuation nasal sprayIndications: Nasal congestion Place 1 [place] in both nostrils once daily for 14 [...] 01/20/2017 Overview (01/20/2017): Colonoscopy done 11/11/14 at [facility] - small hiatus hernia with no evidence of reflux esophagitis , normal colonoscopy Endoscopy also done - DX superficial gastritis Diverticulitis of large intestine 04/05/2015 Overview (04/05/2015): Seen at [facility] 03/25/2015 for abdominal pain for 3 days. Treated with Levaquin,and flagyl . CT Scan : Wall thickening with Inflammatory changes surrounding junction of descending/sigmoid colon. Pt has history of Diverticulitis S/P Partial colon Resection 2-3 years ago. History of Negative Colonoscopy early 2014 at [facility] Facet arthropathy, lumbar 02/03/2015 Overview (02/03/2015): Sees spine. X-ray 12/05/2014 L4-L5 facet arthropathy. Undergoing PT. X- Ray hip normal H/O hypogonadism 01/19/2015 Overview (01/19/2015): Sees Urologist S/P TURP 02/25/2014 Overview (07/01/2017): Done 10/21/2013. Sees Urologist Hood Elizondo 05/25/17 - No show to Urology F/U DM type 2 (diabetes mellitus, type 2) ([facility]) 07/28/2013 Overview (09/10/2013): Pt sees Endo at [facility] Hyperlipidemia 07/28/2013 GERD (gastroesophageal reflux disease) 4 DM neuropathy, painful ([facility]) 07/28/2013 Diabetic eye exam ([facility]) 06/27/2013 Overview (06/27/2013): Pt has an eye exam on 06/20/2013, no diabetic retinopathy was detected Folliculitis 06/13/2013 Overview (06/23/2013): Seen in er for boil and sent home on doxycycline on 06/12/2013 HTN (hypertension) 06/13/2013 Active smoker 06/13/2013 Chronic kidney disease Encounters Date Type Department Care Team Description 05/14/2024 9:40 AM EST Office Visit [address] [address] Mary Osborne PA-C Cough, unspecified type (Primary Dx); SOB (shortness of breath); Nasal congestion; Wheezing; Anemia, unspecified type; Diabetes mellitus type 2, insulin dependent ([facility]) 05/14/2024 Travel 05/06/2024 1:00 PM EST Office Visit [address] [address] Mary Osborne PA-C Encounter to establish care (Primary Dx); Controlled type 2 diabetes mellitus without complication, with long-term current use of insulin ([facility]); Hypertension, unspecified type; Polypharmacy; Acute pain [...] EST Office Visit [facility] [address] [place] [address] Zain Sanchez, PharmD [address] [place] [address] Health Maintenance Due Date Last Done Comments [...] Completed 07/27/2022, 07/22/2021, 12/07/2016, Additional history exists [id number] Completed 01/23/2024, 01/21, 04/02/2021, Additional history exists [...] type XR--RIGHT SHOULDER 2 OR MORE VIEWS ([id number]) Routine 05/07/2024 3:00 AM EST Acute pain of right shoulder MICROALBUMIN/CREATININ E RATIO, URINE, RANDOM Routine 05/06/2024 1:56 PM EST Encounter to establish care Controlled type 2 diabetes mellitus without complication, with long-term current use of insulin ([facility]) HGBA1C W/MPG Routine 05/06/2024 1:56 PM EST Encounter to establish care Controlled type 2 diabetes mellitus without complication, with long-term current use of insulin ([facility]) TSH W/RFLX FREE T4 Routine 05/06/2024 1: 56 PM EST Encounter to establish care LIPID PANEL Routine 05/06/2024 1:56 PM EST Encounter to establish care Controlled type 2 diabetes mellitus without complication, with long-term current use of insulin ([facility]) Hypertension, unspecified type COMPREHENSIVE METABOLIC PANEL Routine 05/06/2024 1:56 PM EST Encounter to establish care Controlled type 2 diabetes mellitus without complication, with long-term current use of insulin ([facility]) Hypertension, unspecified type BLOOD COUNT COMPLETE AUTO&AUTO DIFRNTL WBC Routine 05/06/2024 1:56 PM EST Encounter to establish care HEPATITIS A,B,C PANEL Routine 02/27/2017 11:10 AM EST Multiple joint pain from Last 3 Months or Most Recently Relevant to Health Maintenance Results * COVID-19, ID NOW, WEBER (POCT) (05/14/2024 9:50 AM EST) Pathologist [facility] COVID-19 NEGATIVE NEGATIVE [facility]- BACK OFFICE POCT INTERNAL CONTROL PASS PASS [facility] BACK OFF[facility] POCT Swab Nasal structure / Unknown 05/14/2024 9:50 AM EST Mary Osborne PA-C LAB - NO BLOOD DRAW Final R esult [facility] BACK [facility] POCT * INFLUENZA A AND B, ALERE (POCT) (05/14/2024 9:43 AM EST) Pathologist [facility] INFLUENZA A NEGATIVE NEGATIVE [facility] BACK OFFICE POCT INFLUENZA B NEGATIVE NEGATIVE [facility] BACK OFF[facility] POCT INTERNAL CONTROL PASS PASS [facility] BACK OFF[facility] POCT NASAL Nasal structure / Unknown 05/14/2024 9:43 AM EST Mary Osborne PA-C LAB - NO BLOOD DRAW Final R esult [facility] POCT * XR--RIGHT SHOULDER 2 OR MORE VIEWS ([id number]) (05/07/2024 3:00 AM EST) 05/07/2024 3:00 AM EST Mary Osborne PA-C IMG XRAY Final Resul t * (ABNORMAL) HGBA1C W/MPG (05/06/2024 1:56 PM EST) Pathologist [facility] HEMOGLOBIN A1C 7.4(H) <5.7 % of total Hgb [employer] Comment: For someone without known diabetes, a [...] ?? MEAN PLASMA GLUCOSE 186 mg/dL (calc) [facility] Blood Blood / Unknown 05/06/2024 1 :56 PM EST 05/06/2024 1:56 PM EST Narrative [employer] [facility] - 05/08/2024 5:49 PM EST FASTING:NO Mary Osborne PA-C LAB - BLOOD DRAW Edited Res t - Final Performing Organization Address [facility]/ZIP Co de Phone Number [employer] [address] [address], [employer] [address] [address] * TSH W/RFLX FREE T4 (05/06/2024 1:56 PM EST) TSH W/REFLEX TO FT4 2.18 0.40 - 4.50 mIU/L [facility] Blood Blood / Unknown 05/06/2024 1 :56 PM EST 05/06/2024 1:56 PM EST Narrative [employer] [facility] - 05/08/2024 5:49 PM EST FASTING:NO Mary Osborne PA-C LAB - BLOOD DRAW Edited [facility] - Final Performing Organization Address [facility] Co de Phone Number [employer] [address] [address], [employer] [address] [address] * (ABNORMAL) MICROALBUMIN/CREATININE RATIO, URINE, RANDOM (05/06/2024 1:56 PM EST) CREATININE, RANDOM URINE 37 20 - 320 mg/dL [facility] MICROALBUMIN 147.9 mg/dL [employer] [facility] Comment: Verified by repeat analysis. Reference Range Not established MICROALBUMIN/CREA TININE RATIO, RANDOM URINE 3,997(H) <30 mg/g creat [employer] Comment: The ADA defines abnormalities in [...] PM EST 05/06/2024 1:56 PM EST Narrative [employer] - 05/08/2024 5:49 PM EST FASTING:NO Mary Osborne PA-C LAB - NO BLOOD DRAW Final R esult [employer] [address] [place] [id number], [employer] [address] [place] [phone] * (ABNORMAL) BLOOD COUNT COMPLETE AUTO&AUTO DIFRNTL WBC (05/06/2024 1:56 PM EST) WHITE BLOOD CELL COUNT 6.1 3.8 - 10.8 Thousand/ uL [employer] RED BLOOD CELL COUNT 3.21(L) 4.20 - 5.80 Million/u L [employer] HEMOGLOBIN 10.2(L) 13.2 - 17.1 g/dL [employer] HEMATOCRIT 31.4(L) 38.5 - 50.0 % [employer] MCV 97.8 80.0 - 100.0 fL [employer] MCH 31.8 27.0 - 33.0 pg [employer] MCHC 32.5 32.0 - 36.0 g/dL [employer] Comment: For adults, a slight decrease in the calculated MCHC value (in the range of 30 to 32 g/dL) is most likely not clinically significant; however, it should be interpreted with caution in correlation with other red cell parameters and the patient's clinical condition. RDW 10.9(L) 11.0 - 15.0 % [employer] PLATELET COUNT 228 140 - 400 Thousand/ uL [employer] MPV 10.7 7.5 - 12.5 fL [employer] ABSOLUTE NEUTROPHILS 3,520 1,500 - 7,800 cells/uL [employer] ABSOLUTE LYMPHOCYTES 1,806 850 - 3,900 cells/uL [employer] [facility] ABSOLUTE MONOCYTES 604 200 - 950 cells/uL [employer] [facility] ABSOLUTE EOSINOPHILS 153 15 - 500 cells/uL [employer] [facility] ABSOLUTE BASOPHILS 18 0 - 200 cells/uL [employer] NEUTROPHILS PCT 57.7 % [employer] [facility] LYMPHOCYTES 29.6 % [facility] [employer] [facility] MONOCYTES 9.9 % [facility] [employer] [facility] EOSINOPHILS 2.5 % [facility] [employer] [employer] [facility] BASOPHILS 0.3 % [facility] [employer] [facility] Blood Blood / Unknown 05/06/2024 1 :56 PM EST 05/06/2024 1:56 PM EST Narrative [employer] [facility] - 05/08/2024 5:49 PM EST FASTING:NO Mary Osborne PA-C LAB - BLOOD DRAW Edited Res ult - Final [facility] [address] [address], [employer] [address] [address] * (ABNORMAL) LIPID PANEL (05/06/2024 1:56 PM EST) CHOLESTEROL, TOTAL 122 <200 mg/dL [facility] HDL CHOLESTEROL 41 > OR = 40 mg/dL [employer] [facility] TRIGLYCERIDES 174(H) <150 mg/dL [employer] LDL-CHOLESTEROL 56 99 mg/dL (calc) [employer] [facility] Comment: Reference range: <100 Desirable range <100 mg/dL for primary prevention; ?? <70 mg/dL for patients with CHD or diabetic patients with > or = 2 CHD risk factors. LDL-C is now calculated using the Annalise calculation, which is a validated novel method providing better accuracy than the Friedewald equation in the estimation of LDL-C. Hola PHAN et al. KAUSHIK. 2013;310(19): 3131-6618 (http://education.Brookstone.Scopely/faq/TTG797) CHOL/HDLC RATIO 3.0 <5.0 (calc) [employer] NON-HDL CHOLESTEROL 81 <130 mg/dL (calc) [employer] Comment: For patients with diabetes plus 1 major ASCVD risk factor, treating to a non-HDL-C goal of <100 mg/dL (LDL-C of <70 mg/dL) is considered a therapeutic option. Blood Blood / Unknown 05/06/2024 1 :56 PM EST 05/06/2024 1:56 PM EST Narrative [employer] [facility] - 05/08/2024 5:49 PM EST FASTING:NO us Mary Osborne PA-C LAB - BLOOD DRAW Final Resu lt [facility] [address] [address], [employer] [facility] [address] [place] [address] * (ABNORMAL) COMPREHENSIVE METABOLIC PANEL (05/06/2024 1:56 PM EST) GLUCOSE 329(H) 65 - 139 mg/dL [employer] [facility] Comment: ?Non-fasting reference interval UREA NITROGEN (BUN) 39(H) 7 - 25 mg/dL [employer] CREATININE (blood) 2.99(H) 0.70 - 1.35 mg/dL [employer] [facility] EGFR 22(L) > OR = 60 mL/min/1. 73m2 [employer] [facility] BUN/CREATININE RATIO 13 6 - 22 (calc) [employer] [facility] SODIUM 133(L) 135 - 146 mmol/L [employer] [facility] POTASSIUM 4.4 3.5 - 5.3 mmol/L [employer] [facility] CHLORIDE 101 98 - 110 mmol/L [employer] [facility] CARBON DIOXIDE 22 20 - 32 mmol/L [employer] [facility] CALCIUM 8.4(L) 8.6 - 10.3 mg/dL [employer] [facility] PROTEIN, TOTAL 5.8(L) 6.1 - 8.1 g/dL [employer] [facility] ALBUMIN 3.2(L) 3.6 - 5.1 g/dL [employer] [facility] GLOBULIN 2.6 1.9 - 3.7 g/dL (calc) [employer] [facility] ALBUMIN/GLOBULI N RATIO 1.2 1.0 - 2.5 (calc) [facility] [employer] [facility] BILIRUBIN, TOTAL 0.3 0.2 - 1.2 mg/dL [employer] ALKALINE PHOSPHATASE 181(H) 35 - 144 U/L [facility] AST 25 10 - 35 U/L [facility] ALT 26 9 - 46 U/L [facility] Blood Blood / Unknown 05/06/2024 1 :56 PM EST 05/06/2024 1:56 PM EST Narrative [employer] - 05/08/2024 5:49 PM EST FASTING:NO Mary Osborne PA-C LAB - BLOOD DRAW Edited Res ult - Final Performing Organization Address City/[facility]/ZIP Co de Phone Number [employer] [address] [address], [employer] [address] [address] * HEPATITIS A,B,C PANEL (02/27/2017 11:10 AM EST) HEPATITIS B SURFACE ANTIBODY NEGATIVE NEGATIVE [facility] HEPATITIS B SURFACE ANTIGEN NEGATIVE NEGATIVE [facility] Comment: Over the counter supplements containing high doses of biotin may interfere with this assay. ??If interference is suspected, patients shoud be retested after refraining from biotin supplements for 72 hours. HEPATITIS C VIRUS DIAGNOSTIC NEGATIVE NEGATIVE [facility] HEPATITIS B CORE ANTIBODY NEGATIVE NEGATIVE [facility] HEPATITIS A ANTIBODY TOTAL NEGATIVE NEGATIVE [facility] Comment: Over the counter supplements containing high doses of biotin may interfere with this assay. ??If interference is suspected, patients shoud be retested after refraining from biotin supplements for 72 hours. Blood specimen (specimen) Blood / Unknown 02/27/2017 11:10 AM EST 02/27/2017 11:33 AM EST Narrative [facility] - 02/27/2017 4:19 PM EST [email or web address] [address] [place] [address] [place] [id number] ORD# [id number] Gregor GRIFFITH LAB - BLOOD DRAW Edited Result - Final [facility] [address] [place] [address], from Last 3 Months or Most Recently Relevant to Health Maintenance Insurance [facility] [employer] [place] [address] [address] [place] [address] [facility] Member Subscriber Plan / Payer (Ef fective 2021-Present) Name:[place] b[place]rey Relation to Subscriber:Self Name:[place] [employer] Payer ID:[id number] Group ID:Not on file Type:Indemnity Address: [address] [place] [address] Care Teams Canvas Cutter Machine Relationship Specialty Start Date End Date Anel Padgett FNP [address] [place] [id number] PCP - General Internal Medicine 09/05/21
--- OUTSIDE RECORDS SUMMARY | 2024-06-11 11:21 | XMS_ITS | Encounter Summary ---
Author Organization [facility] Address [address] [place] [address] Care Team Providers Care Adjunct Sociology Professor Name Role Phone Anel Padgett [employer] Primary Care Provider [phone] Reason for Referral * Diabetes (Routine) - Authorized Specialty Diagnoses / Procedures Referred By Andreea hardy Referred To Contact Clinical Pharmacology / Family Practice Diagnoses Diabetes mellitus type 2, insulin dependent ([facility]) Mary Osborne PA-C [address] [place] [address] Phone: tel: fax: Zain Sanchez PharmD [address] [place] [address] Phone: tel: fax: Referral ID Status Reason Start Date Expiration Date Visits Requested Visits Authorized [id number] Authorized Continuity of Care 05/14/2024 05/14/2025 20 20 Question Answer Insulin Dependent? Yes Comments 68 year old male with DM type 2 insulin dependent Reason for Visit * Reason Comments Cough X4 days cough, chill s , wheezing, fatigue Encounter Details Date Type Department Care Team (Late st Contact Info) Description 05/14/2024 9:40 AM EST Office Visit [address] [address] Mary Osborne PA-C [address] [place] [address] Cough, unspecified type (Primary Dx); SOB (shortness of breath); Nasal congestion; Wheezing; Anemia, unspecified type; Diabetes mellitus type 2, insulin dependent ([facility]) Social History Tobacco Use Types Packs/Day [...] HTN (hypertension) Active smoker Diabetic eye exam ([facility]) DM type 2 (diabetes mellitus, type 2) ([facility]) Hyperlipidemia GERD (gastroesophageal reflux disease) DM neuropathy, painful ([facility]) S/P TURP H/O hypogonadism Facet arthropathy, [...] (FLONASE) 50 mcg/actuation nasal spray Place 1 [place] in both nostrils once daily for 14days [...] 50 MCG/ACTUATION NASAL SPRAY,SUSPENSION - Place 1 [place] in both nostrils once daily for 14 [...] symptoms worsen or fail to improve. Mary Osborne PA-C documented in this encounter Miscellaneous Notes * Patient Instructions - Mary Osborne PA-C - 05/14/2024 9:38 AM EST If you are not able to keep your appointment please call 24-48 hours before your appointment to cancel or reschedule. [facility] [address] [place], [place] [phone] - If any new or worsening symptoms/ if symptoms do not improve as expected, patient may return to the clinic and or seek urgent/emergent care documented in this encounter Plan of Treatment Upcoming Encounters Date Type Department Care Team (Late st Contact Info) Description 06/18/2024 9:00 AM EST Office Visit [facility] [address] [place] [address] Zain Sanchez, PharmD [address] [place] [address] Scheduled Orders Name Type Priority Associated Diagnoses [...] Routine Diabetes mellitus type 2, insulin dependent ([facility]) Ordered: 05/14/2024 documented as of this encounter [...] BACK OFFICE POCT INTERNAL CONTROL PASS PASS [facility] POCT Swab Nasal structure / Unknown 05/14/2024 9:50 AM EST us Mary Osborne PA-C LAB - NO BLOOD DRAW Final R esult [facility]- BACK OFF[facility] POCT * INFLUENZA A [...] type Diabetes mellitus type 2, insulin dependent ([facility]) Type II or unspecified type diabetes mellitus without mention of complication, not stated as uncontrolled documented in this encounter Additional Health Concerns Assessment Noted Time PHQ-9 Depression Total Score: 0 05/06/19 25 12:55 PM PST documented as of this encounter Care Teams Adjunct Sociology Professor Relationship Specialty Start Date End Date Anel Padgett FNP [address] [place] [id number] PCP - General Internal Medicine 09/05/21 documented as of this encounter
== END 2024-06-11 11:10 | disposition home or self-care (01) ==
PROVIDERS: PCP Physician Assistant Medical; Visit Provider Internal Medicine Hypertension Specialist
DX: I12.9 Hypertensive chronic kidney disease with stage 1 through stage 4 chronic kidney disease, or unspecified chronic kidney disease (principal); N18.9 Chronic kidney disease, unspecified; K74.60 Unspecified cirrhosis of liver; E11.42 Type 2 diabetes mellitus with diabetic polyneuropathy
CPT/HCPCS: 99214

== ENCOUNTER → 2024-06-11 10:43 | Outpatient (BNVA) | payer OTHER, SELFPAY | PROVIDERS: PCP Physician Assistant Medical; Visit Provider Internal Medicine Hypertension Specialist | DX: E11.22 Type 2 diabetes mellitus with diabetic chronic kidney disease (principal); E11.21 Type 2 diabetes mellitus with diabetic nephropathy; E11.42 Type 2 diabetes mellitus with diabetic polyneuropathy; I12.9 Hypertensive chronic kidney disease with stage 1 through stage 4 chronic kidney disease, or unspecified chronic kidney disease; N18.9 Chronic kidney disease, unspecified; K74.60 Unspecified cirrhosis of liver | CPT/HCPCS: 99212 ==

== ENCOUNTER 2024-08-05 11:14 | Outpatient (REF) | payer OTHER, SELFPAY ==
--- OUTSIDE RECORDS SUMMARY | 2024-08-05 13:51 | XMS_ITS | Clinical Summary ---
Author Organization [facility] Address [address] [place] [address] Care Team Providers Care Group [employer] Name Role Phone Anel Padgett [facility] Primary Care Provider [phone] Source Comments PLEASE NOTE, if this patient [...] 10/15/2023 Medications insulin aspart (NOVOLOG) 100 unit/mL injectionIndicatio ns:Diabetes mellitus type 2 in nonobese ([facility]) Inject w/meals 70-100 NO u 101- 140 2 U, 141-180 3 U, 181-220 4 U, 221-260 6 U, 261-300 8 U, 301-350 10 U,351-400 12 ,>400 callMD 10 mL 5 7 Active insulin needles 31 gauge x 1/4 Indications:Di abetes mellitus type 2 in nonobese ([facility]) DX.E11.65 insulin injection 4 times a day 100 Each 7 Active lancetsIndications :Diabetes mellitus type 2 in nonobese ([facility]) DX E11.65 . Blood sugar check 4 times a day 100 Each 7 Active [address] tabletIndications: Diabetes mellitus type 2 in nonobese ([facility]) Take 1 Tab by mouth once daily 8 Active insulin glargine (LANTUS) 100 unit/mL injectionIndicatio ns:Diabetes mellitus type 2 in nonobese ([facility]) Inject 60 Units into the skin once daily 10 mL 5 8 Active linagliptin (TRADJENTA) 5 mg tabIndications:Ava rigobertoes mellitus type 2 in nonobese ([facility]) Take 1 Tab by mouth once daily 30 Tab 3 8 Active FREESTYLE LITE STRIPS stripsIndications: Diabetes mellitus type 2 in nonobese ([facility]) USE TO TEST BLOOD SUGAR THREE TIMES [...] 4 Active diclofenac sodium (VOLTAREN) 1 % gelIndications:Acu te pain of right shoulder Apply 2 g topically 2 (two) times daily 150 g 5 Active acetaminophen (TYLENOL) 325 mg tabletIndications: Acute pain of right shoulder Take 1 Tablet by mouth every 6 (six) hours as needed for pain 30 Tablet 5 Active fluticasone (FLONASE) 50 mcg/actuation nasal sprayIndications:N chelsea congestion Place 1 Josephine in both nostrils once daily for 14 days 16 g 2 5 Active albuterol HFA 90 mcg/actuation inhalerIndications :SOB (shortness of breath),Wheezing Inhale 2 Puffs into the lungs every 4 to 6 (four to six) hours as needed for shortness of breath or wheezing (cough/sob) 8 g 5 Active benzonatate (TESSALON) 100 mg capsuleIndications :Cough, unspecified type Take 1 Capsule by mouth 3 (three) times daily as needed for cough 30 Capsule 5 Active cetirizine (ZYRTEC) 10 mg tabletIndications: Nasal congestion Take 1 Tablet by mouth once daily 90 Tablet 5 Active Active Problems Problem Noted Date Diagnosed Date Hx of colonoscopy 01/20/2017 Overview (01/20/2017): Colonoscopy done 11/11/14 at [facility] - small hiatus hernia with no evidence of reflux esophagitis , normal colonoscopy Endoscopy also done - DX superficial gastritis Diverticulitis of large intestine 04/05/2015 Overview (04/05/2015): Seen at [facility] 03/25/2015 for abdominal pain for 3 days. Treated with Levaquin,and flagyl . CT Scan : Wall thickening with Inflammatory changes surrounding junction of descending/sigmoid colon. Pt has history of Diverticulitis S/P Partial colon Resection 2-3 years ago. History of Negative Colonoscopy early 2014 at [facility] Facet arthropathy, lumbar 02/03/2015 Overview (02/03/2015): Sees [facility]. X-ray 12/05/2014 L4-L5 facet arthropathy. Undergoing PT. X- Ray hip normal H/O hypogonadism 01/19/2015 Overview (01/19/2015): Sees Urologist S/P TURP 02/25/2014 Overview (07/01/2017): Done 10/21/2013. Sees Urologist Hood Elizondo 05/25/17 - No show to Urology F/U DM type 2 (diabetes mellitus, type 2) ([facility]) 07/28/2013 Overview (09/10/2013): Pt sees Endo at [facility] Hyperlipidemia 07/28/2013 GERD (gastroesophageal reflux disease) 4 DM neuropathy, painful ([facility]) 07/28/2013 Diabetic eye exam ([facility]) 06/27/2013 Overview (06/27/2013): Pt has an eye exam on 06/20/2013, no diabetic retinopathy was detected Folliculitis 06/13/2013 Overview (06/23/2013): Seen in er for boil and sent home on doxycycline on 06/12/2013 HTN (hypertension) 06/13/2013 Active smoker 06/13/2013 Chronic kidney disease Encounters Date Type Department Care Team Description 05/14/2024 9:40 AM EST Office Visit [address] [phone] Mary Osborne PA-C Cough, unspecified type (Primary Dx); SOB (shortness of breath); Nasal congestion; Wheezing; Anemia, unspecified type; Diabetes mellitus type 2, insulin dependent ([facility]) 05/14/2024 Travel from Last 3 Months Immunizations Immunization Administration Dates Next Due DTAP, UNSPECIFIED 11/25/2010 [...] 04/03/2023 TDAP 07/27/2022,09/30/2014 ZOSTER VACCINE, RECOMBINANT (SHINGRIX) Zoster, Live Vaccine (Zostavax) 08/08/2017 Family History [...] Orientation Straight 02/26/2017 10 :01 AM PST Last Filed Vital Signs Vital Sign Reading [...] Care Team (Late st Contact Info) Description 08/11/2024 1:20 PM EDT Office Visit [facility] [address] [place] [id number] Zain Sanchez, PharmD [address] [place] [address] Health Maintenance Due Date Last Done Comments [...] Colonoscopy 06/05/2024 06/05/2014 Colorectal Cancer Screening 06/05/2024 [id number] ( season) 2024 01/23/2024, 01/31/2022, 04/02/2021, Additional history exists Diabetes HbA1c 11/03/2024 05/06/2024, 07/22, 02/27/2017, Additional history exists Lipid Screening 05/06/2025 05/06/2024, 07/22, 09/01/2016, Additional history exists Serum Creatinine 05/06/2025 05/06/2024, , 08/09/2017, Additional history exists Urine Albumin Creatinine Rat io Screening 05/06/2025 05/06/2024, 08/09/2017, 09/01/2016, Additional history exists Imm-DTaP/Tdap/Td (4 - Td or Tdap) 07/27/2032 07/27/2022, 09/30/2014, 11/25/2010 Hepatitis C Screening Completed 02/27/2017 Imm-Pneumococcal 65+ Completed 07/27/2022, 07/22/2021, 12/07/2016, Additional history exists Imm-Influenza Completed 01/23/2024, 12/23, 03/15/2022, Additional history exists Alcohol and Drug Screen Completed 05/06/19, 01/15/2017, 09/30/2014 Depression Annual Screen Completed 05/06/2024 Procedures Procedure Name Priority Date/Time Associated Diagnosis Comments IMAGING SCANNED DOCUMENT 07/08/2024 3:00 AM EDT REFERRAL TO ORTHOPEDICS Routine 06/27/2024 3:00 AM EST Acute pain of right shoulder Deformity of clavicle Calcification of soft tissue IMAGING SCANNED DOCUMENT 06/25/2024 3:00 AM EST IMAGING SCANNED DOCUMENT 06/17/2024 3:00 AM EST COVID-19, ID NOW, WEBER (POCT) Routine 05/14/2024 9:50 AM EST Cough, unspecified type INFLUENZA A AND B, ALERE (POCT) Routine 05/14/2024 9:43 AM EST Cough, unspecified type XR--RIGHT SHOULDER 2 OR MORE VIEWS ([id number]) Routine 05/07/2024 3:00 AM EST Acute pain of right shoulder COMPREHENSIVE METABOLIC PANEL Routine 05/06/2024 1:56 PM EST Encounter to establish care Controlled type 2 diabetes mellitus without complication, with long-term current use of insulin ([facility]) Hypertension, unspecified type LIPID PANEL Routine 05/06/2024 1:56 PM EST Encounter to establish care Controlled type 2 diabetes mellitus without complication, with long-term current use of insulin ([facility]) Hypertension, unspecified type MICROALBUMIN/CREATININ E RATIO, URINE, RANDOM Routine 05/06/2024 1:56 PM EST Encounter to establish care Controlled type 2 diabetes mellitus without complication, with long-term current use of insulin ([facility]) HGBA1C W/MPG Routine 05/06/2024 1:56 PM EST Encounter to establish care Controlled type 2 diabetes mellitus without complication, with long-term current use of insulin ([facility]) HEPATITIS A,B,C PANEL Routine 02/27/2017 11:10 AM EST Multiple joint pain from Last 3 Months or Most Recently Relevant to Health Maintenance Results * IMAGING SCANNED DOCUMENT (07/08/2024 3:00 AM EDT) Only the most recent of3 resultswithin the time period is included. 07/08/2024 3:00 AM EDT Anel Padgett [employer]LECTRIC/PHOTOVOLTAIC INSTALLER SCAN IMAGING Final Result * REFERRAL TO ORTHOPEDICS (06/27/2024 3:00 AM EST) 06/27/2024 3:00 AM EST Mary Osborne PA-C REFERRAL Edited Resu lt - Final * COVID-19, ID NOW, WEBER (POCT) (05/14/2024 [...] * XR--RIGHT SHOULDER 2 OR MORE VIEWS ([id number]) (05/07/2024 3:00 AM EST) 05/07/2024 3:00 AM EST Result [facility] Mary Osborne PA-C IMG XRAY Final Resul t * (ABNORMAL) HGBA1C W/MPG (05/06/2024 1:56 PM EST) HEMOGLOBIN A1C 7.4(H) <5.7 % of total Hgb [facility] Comment: For someone without known diabetes, a [...] ?? MEAN PLASMA GLUCOSE 186 mg/dL (calc) [facility] Blood Blood / Unknown 05/06/2024 1 :56 PM EST 05/06/2024 1:56 PM EST Narrative [facility] - 05/08/2024 5:49 PM EST FASTING:NO us Mary Osborne PA-C LAB - BLOOD DRAW Edited Res ult - Final Performing Organization Address [facility] Co de Phone Number [facility] [address] [place] [phone], [facility] [address] [address] * (ABNORMAL) MICROALBUMIN/CREATININE RATIO, URINE, RANDOM (05/06/2024 1:56 PM EST) CREATININE, RANDOM URINE 37 20 - 320 mg/dL [facility] MICROALBUMIN 147.9 mg/dL [facility] Comment: Verified by repeat analysis. Reference Range Not established MICROALBUMIN/CREA TININE RATIO, RANDOM URINE 3,997(H) <30 mg/g creat [facility] Comment: The ADA defines abnormalities in albumin [...] PM EST 05/06/2024 1:56 PM EST Narrative [facility] - 05/08/2024 5:49 PM EST FASTING:NO us Mary Osborne PA-C LAB - NO BLOOD DRAW Final R esult Performing Organization Address [facility] Co de Phone Number [facility] [employer] [facility] [address] [place] [phone], [facility] [address] [address] * (ABNORMAL) LIPID PANEL (05/06/2024 1:56 PM EST) CHOLESTEROL, TOTAL 122 <200 mg/dL [facility] HDL CHOLESTEROL 41 > OR = 40 mg/dL [facility] TRIGLYCERIDES 174(H) <150 mg/dL [facility] LDL-CHOLESTEROL 56 99 mg/dL (calc) [facility] Comment: Reference range: <100 Desirable range <100 mg/dL for primary prevention; ?? <70 mg/dL for patients with CHD or diabetic patients with > or = 2 CHD risk factors. LDL-C is now calculated using the Annalise calculation, which is a validated novel method providing better accuracy than the Friedewald equation in the estimation of LDL-C. Hola SS et al. KAUSHIK. 2013;310(19): 9498-5734 (http://education.[employer]/faq/JGP454) CHOL/HDLC RATIO 3.0 <5.0 (calc) [facility] NON-HDL CHOLESTEROL 81 <130 mg/dL (calc) [facility] Comment: For patients with diabetes plus 1 major ASCVD risk factor, treating to a non-HDL-C goal of <100 mg/dL (LDL-C of <70 mg/dL) is considered a therapeutic option. Blood Blood / Unknown 05/06/2024 1 :56 PM EST 05/06/2024 1:56 PM EST Narrative [facility] - 05/08/2024 5:49 PM EST FASTING:NO Mary Osborne PA-C LAB - BLOOD DRAW Final Resu lt [facility] [address] [address], [facility] [address] [place] [address] * (ABNORMAL) COMPREHENSIVE METABOLIC PANEL (05/06/2024 1:56 PM EST) GLUCOSE 329(H) 65 - 139 mg/dL [facility] Comment: ?Non-fasting reference interval UREA NITROGEN (BUN) 39(H) 7 - 25 mg/dL [facility] CREATININE (blood) 2.99(H) 0.70 - 1.35 mg/dL [facility] EGFR 22(L) > OR = 60 mL/min/1. 73m2 [facility] BUN/CREATININE RATIO 13 6 - 22 (calc) [facility] SODIUM 133(L) 135 - 146 mmol/L [facility] POTASSIUM 4.4 3.5 - 5.3 mmol/L [facility] CHLORIDE 101 98 - 110 mmol/L [facility] CARBON DIOXIDE 22 20 - 32 mmol/L [facility] CALCIUM 8.4(L) 8.6 - 10.3 mg/dL [facility] PROTEIN, TOTAL 5.8(L) 6.1 - 8.1 g/dL [facility] ALBUMIN 3.2(L) 3.6 - 5.1 g/dL [facility] GLOBULIN 2.6 1.9 - 3.7 g/dL (calc) [facility] ALBUMIN/GLOBULI N RATIO 1.2 1.0 - 2.5 (calc) [facility] BILIRUBIN, TOTAL 0.3 0.2 - 1.2 mg/dL [facility] ALKALINE PHOSPHATASE 181(H) 35 - 144 U/L [facility] AST 25 10 - 35 U/L [facility] ALT 26 9 - 46 U/L [facility] Blood Blood / Unknown 05/06/2024 1 :56 PM EST 05/06/2024 1:56 PM EST Narrative [facility] - 05/08/2024 5:49 PM EST FASTING:NO us Mary Osborne PA-C LAB - BLOOD DRAW Edited Res ult - Final [facility] [address] [address], [facility] [address] [address] * HEPATITIS A,B,C PANEL (02/27/2017 11:10 AM EST) HEPATITIS B SURFACE ANTIBODY NEGATIVE NEGATIVE [facility] HEPATITIS B SURFACE ANTIGEN NEGATIVE NEGATIVE [facility] Comment: Over the counter supplements containing high doses of biotin may interfere with this assay. ??If interference is suspected, patients shoud be retested after refraining from biotin supplements for 72 hours. HEPATITIS C VIRUS DIAGNOSTIC NEGATIVE NEGATIVE [facility] HEPATITIS B CORE ANTIBODY NEGATIVE NEGATIVE [facility] HEPATITIS A ANTIBODY TOTAL NEGATIVE NEGATIVE [facility] Comment: Over the counter supplements containing high doses of biotin may interfere with this assay. ??If interference is suspected, patients shoud be retested after refraining from biotin supplements for 72 hours. Blood specimen (specimen) Blood / Unknown 02/27/2017 11:10 AM EST 02/27/2017 11:33 AM EST Narrative [facility] - 02/27/2017 4:19 PM EST [facility] [address] [place] [address] PT ID [id number] ORD# [id number] Gregor GRIFFITH LAB - BLOOD DRAW Edited Result - Final [facility] [address] [place] [address], from Last 3 Months or Most Recently Relevant to Health Maintenance Insurance [facility] [employer] [facility] [facility] Member Subscriber Plan / Payer (Ef fective 2021-Present) Name:Modesto Rogers Relation to Subscriber:Self Name:Modesto Rogers Payer ID:[id number] Group ID:Not on file Type:Indemnity Address: [address] [place] [address] Care Teams Group [employer] Relationship Specialty Start Date End Date Anel Padgett FNP [address] [place] [id number] PCP - General Internal Medicine 09/05/21
--- OUTSIDE RECORDS SUMMARY | 2024-08-05 13:51 | XMS_ITS ---
Author Organization [facility] liance Address [address] [place] [address] Care Team Providers Care Engraver Machine Name Role Phone Gregor Ruiz Primary Care Provider Unavailabl e Clinical, Operations Unavailable Unavailable Allergies Allergen (clinical drug ingredient) Drug/Non Drug Allergy documented on EMR Reaction Allergy Type Onset Date Status lisinopril Lisinopril Unknown Drug Allergy Activ e REASON FOR VISIT MDS Assessment Medications Medication SIG (Take, Route, Frequency, Duration) Notes Start Date End Date Status Magnesium - as directed Orally Once a day Member taking 420 mg per day Active Insulin Glargine 100 UNIT/ML 62 [...] a day Active Vitamin D 50 MCG (1999 UT) 1 tablet Oral ly Once a [...] a day One a day(brand name) Active Encounters Encounter Location Date Provider Diagnosis [place] [id number] [address] 08/27/2023 Operations Clinical Folliculitis L73.9 ; Primary [...] Unilateral primary osteoarthritis, right hip M16.11 ; snf (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 Z79.4 and Low back pain, unspecified back pain laterality, unspecified chronicity, unspecified whether sciatica present M54.50 Assessments Encounter Date Diagnosis (ICD Code) Assessment Notes Treatment Notes Treatment Clinical Notes Section Notes 08/27/2023 Folliculitis (ICD-10 - L73.9) 08/27/2023 Primary hypertension (ICD-10 - I10) 08/27/2023 Cigarette nicotine dependence without complication (ICD-10 - F17.210) 08/27/2023 Type 2 diabetes mellitus without complication, without long-term current use of insulin (ICD-10 - E11.9) 08/27/2023 Hyperlipidemia, unspecified hyperlipidemia type (ICD-10 - E78.5) 08/27/2023 Gastroesophageal reflux disease without esophagitis (ICD-10 - K21.9) 08/27/2023 Type 2 diabetes mellitus with diabetic neuropathy, without long-term current use of insulin (ICD-10 - E11.40) 08/27/2023 S/P TURP (ICD-10 - Z90.79) 08/27/2023 H/O hypogonadism (ICD-10 - Z86.39) 08/27/2023 Facet arthropathy, lumbar (ICD-10 - M47.816) 08/27/2023 Diverticulitis of large intestine, unspecified bleeding status, unspecified complication status (ICD-10 - K57.32) 08/27/2023 Secondary cataract of both eyes, unspecified secondary cataract type (ICD-10 - H26.40) 08/27/2023 Left shoulder pain, unspecified chronicity (ICD-10 - M25.512) 08/27/2023 Bursitis of left shoulder (ICD-10 - M75.52) 08/27/2023 Other intervertebral disc degeneration, lumbar region (ICD-10 - M51.36) 08/27/2023 Spondylosis without myelopathy or radiculopathy, lumbar region (ICD-10 - M47.816) 08/27/2023 Dorsalgia, unspecified (ICD-10 - M54.9) 08/27/2023 Chronic idiopathic constipation (ICD-10 - K59.04) 08/27/2023 Pain in right foot (ICD-10 - M79.671) 08/27/2023 Pain in left foot (ICD-10 - M79.672) 08/27/2023 Tinea unguium (ICD-10 - B35.1) 08/27/2023 Hepatic cirrhosis, unspecified hepatic cirrhosis type, unspecified whether ascites present (ICD-10 - K74.60) 08/27/2023 Cholesterolosis of gallbladder (ICD-10 - K82.4) 08/27/2023 Abdominal pain, unspecified site (ICD-10 - R10.9) 08/27/2023 Trigger thumb, left thumb (ICD-10 - M65.312) 08/27/2023 Benign prostatic hyperplasia with lower urinary tract symptoms, symptom details unspecified (ICD-10 - N40.1) 08/27/2023 Erectile dysfunction, unspecified erectile dysfunction type (ICD-10 - N52.9) 08/27/2023 Nocturia (ICD-10 - R35.1) 08/27/2023 Personal history of nicotine dependence (ICD-10 - Z87.891) 08/27/2023 Overweight (ICD-10 - E66.3) 08/27/2023 Glaucoma, unspecified glaucoma type, unspecified laterality (ICD-10 - H40.9) 08/27/2023 Major depressive disorder, recurrent, in full remission (ICD-10 - F33.42) 08/27/2023 Unilateral primary osteoarthritis, right hip (ICD-10 - M16.11) 08/27/2023 equipment [employer] (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 (ICD-10 - Z79.4) 08/27/2023 Low back pain, unspecified back pain laterality, unspecified chronicity, unspecified whether sciatica present (ICD-10 - M54.50) Plan Of Treatment No Information Progress Notes * [place] [facility] FDOB:1955 (68 yo M)Acc No.[id number]:08/27/2023 Patient:?[facility] ??External Provider:?Operations Clinical?Resource:Kalli Sotelo :1955???Age:68 Y???Sex:Male Arik e:08/27/2023 Address:[address] [place] [address], [place], [id number] Pcp:Gregor Ruiz Patient's Default Facility:[facility] Subjective: * Chief Complaints: * ???MDS Assessment * HPI: ???Depression Screening:?PHQ-9?Little interest or pleasure in doing things?Not at all ?Feeling down, depressed, or hopeless?Not at all ?Trouble falling or staying asleep, or sleeping too much?Not at all ?Feeling tired or having little energy?Not at all ?Poor appetite or overeating?Not at all ?Feeling bad about yourself or that you are a failure, or have let yourself or your family down?Not at all ?Trouble concentrating on things, such as reading the newspaper or watching television?Not at all ?Moving or speaking so slowly that other people could have noticed; or the opposite, being so fidgety or restless that you have been moving around a lot more than usual?Not at all ?Thoughts that you would be better off or of hurting yourself in some way?Not at all ?Total Score?0 ???Virtual Care Visit Information:?Visit Location, Methods & Consent:?*REQUIRED* Virtual Care communication method:?Phone (audio only) ?Patient's location during visit:?Member's home ?Provider's location during visit:?Provider's home office ?Member Verbal Consent Obtained:?Yes * Medical History:?? * Surgical History:? * Hospitalization/Major Diagno stic Procedure:? * Medications:?TakingLidocaine 5 % Patch 1 patch remove after 12 hours Externally Once a day Carboxymethylcellulose Sod PF 0.5 % Solution as directed Ophthalmic Four times a day Vitamin D 50 MCG (1999 UT) Tablet 1 tablet Orally Once a day Bumetanide 1 MG Tablet 1 tablet Orally Once a day Diclofenac Sodium 1 % Gel as directed Externally Tamsulosin HCl 0.4 MG Capsule 1 capsule Orally Once a day metFORMIN HCl 500 MG Tablet 1 tablet with a meal Orally Once a day Latanoprost 0.005 % Solution 1 drop into affected eye in the evening Ophthalmic Once a day Insulin Aspart 100 UNIT/ML Solution Pen-injector 22 units before breakfast, lunch and dinner Subcutaneous Three times a day Insulin Glargine 100 UNIT/ML Solution Pen-injector 62 units Subcutaneous At bedtime Magnesium - Capsule as directed Orally Once a day Member taking 420 mg per dayValsartan 320 MG Tablet 1 tablet Orally Once a day Multivitamin - Tablet 1 tablet Orally Once a day One a day(brand name)Omeprazole 20 MG Capsule Delayed Release 1 capsule 30 minutes before morning meal Orally Once a day amLODIPine Besylate 5 MG Tablet 1 tablet Orally Once a day Atorvastatin Calcium 80 MG Tablet 0.5 tablet Orally Once a day Taking Lidocaine 5 % Patch 1 patch remove after 12 hours Externally Once a day Taking Carboxymethylcellulose Sod PF 0.5 % Solution as directed Ophthalmic Four times a day Taking Vitamin D 50 MCG (1999 UT) Tablet 1 tablet Orally Once a day Taking Bumetanide 1 MG Tablet 1 tablet Orally Once a day Taking Diclofenac Sodium 1 % Gel as directed Externally Taking Tamsulosin HCl 0.4 MG Capsule 1 capsule Orally Once a day Taking metFORMIN HCl 500 MG Tablet 1 tablet with a meal Orally Once a day Taking Latanoprost 0.005 % Solution 1 drop into affected eye in the evening Ophthalmic Once a day Taking Insulin Aspart 100 UNIT/ML Solution Pen-injector 22 units before breakfast, lunch and dinner Subcutaneous Three times a day Taking Insulin Glargine 100 UNIT/ML Solution Pen-injector 62 units Subcutaneous At bedtime Taking Magnesium - Capsule as directed Orally Once a day Member taking 420 mg per dayTaking Valsartan 320 MG Tablet 1 tablet Orally Once a day Taking Multivitamin - Tablet 1 tablet Orally Once a day One a day(brand name)Taking Omeprazole 20 MG Capsule Delayed Release 1 capsule 30 minutes before morning meal Orally Once a day Taking amLODIPine Besylate 5 MG Tablet 1 tablet Orally Once a day Taking Atorvastatin Calcium 80 MG Tablet 0.5 tablet Orally Once a day Not-TakinghydroCHLOROthiazide 12.5 MG Capsule 1 capsule in the morning Orally Once a day , Notes to Pharmacist: Taking ValsartanTresiba FlexTouch 200 UNIT/ML Solution Pen-injector Sliding scale Subcutaneous Once a day , Notes to Pharmacist: Member reports not using anymore, switched to different InsulinTrulicity 1.5 MG/0.5ML Solution Pen-injector as directed Subcutaneous , Notes to Pharmacist: Member reports not using anymore, Switch to diffiennt InsulinNaproxen 500 MG Tablet 1 tablet with food or milk as needed Orally every 12 hrs , Notes to Pharmacist: Member reports not using anymoreAspirin 81 81 MG Tablet Chewable 1 tablet Orally Once a day , Notes to Pharmacist: Member reports not using anymoreCentrum Adults - Tablet as directed Orally , Notes to Pharmacist: DuplicateDicyclomine HCl 10 MG Capsule 1 capsules Orally Four times a day , Notes to Pharmacist: Member reports not using anymorePregabalin 100 MG Capsule 1 capsule Orally Once a day , Notes to Pharmacist: Member reports not using anymoreMedication List reviewed and reconciled with the patientNot-Taking hydroCHLOROthiazide 12.5 MG Capsule 1 capsule in the morning Orally Once a day , Notes to Pharmacist: Taking ValsartanNot-Taking Tresiba FlexTouch 200 UNIT/ML Solution Pen-injector Sliding scale Subcutaneous Once a day , Notes to Pharmacist: Member reports not using anymore, switched to different InsulinNot-Taking Trulicity 1.5 MG/0.5ML Solution Pen- injector as directed Subcutaneous , Notes to Pharmacist: Member reports not using anymore, Switch to diffiennt InsulinNot-Taking Naproxen 500 MG Tablet 1 tablet with food or milk as needed Orally every 12 hrs , Notes to Pharmacist: Member reports not using anymoreNot-Taking Aspirin 81 81 MG Tablet Chewable 1 tablet Orally Once a day , Notes to Pharmacist: Member reports not using anymoreNot-Taking Centrum Adults - Tablet as directed Orally , Notes to Pharmacist: DuplicateNot-Taking Dicyclomine HCl 10 MG Capsule 1 capsules Orally Four times a day , Notes to Pharmacist: Member reports not using anymoreNot-Taking Pregabalin 100 MG Capsule 1 capsule Orally Once a day , Notes to Pharmacist: Member reports not using anymoreMedication List reviewed and reconciled with the patient * Allergies:?Lisinopril Objective: Assessment: * Assessment: 1.?Folliculitis - L73.9?2.?P rimary hypertension - I10?3.?Cigarette nicotine dependence without complication - F17.210?4.?Type 2 diabetes mellitus without complication, without long-term current use of insulin - E11.9?5.?Hyperlipidemia, unspecified hyperlipidemia type - E78.5?6.?Gastroesophageal reflux disease without esophagitis - K21.9?7.?Type 2 diabetes mellitus with diabetic neuropathy, without long-term current use of insulin - E11.40?8.?S/P TURP - Z90.79?9.?H/O hypogonadism - Z86.39?10.?Facet arthropathy, lumbar - M47.816?11.?Diverticulitis of large intestine, unspecified bleeding status, unspecified complication status - K57.32?12.?Secondary cataract of both eyes, unspecified secondary cataract type - H26.40?13.?Left shoulder pain, unspecified chronicity - M25.512?14.?Bursitis of left shoulder - M75.52?15.?Other intervertebral disc degeneration, lumbar region - M51.36?16.?Spondylosis without myelopathy or radiculopathy, lumbar region - M47.816?17.?Dorsalgia, unspecified - M54.9?18.?Chronic idiopathic constipation - K59.04?19.?Pain in right foot - M79.671?20.?Pain in left foot - M79.672?21.?Tinea unguium - B35.1?22.?Hepatic cirrhosis, unspecified hepatic cirrhosis type, unspecified whether ascites present - K74.60?23.?Cholesterolosis of gallbladder - K82.4?24.?Abdominal pain, unspecified site - R10.9?25.?Trigger thumb, left thumb - M65.312?26.?Benign prostatic hyperplasia with lower urinary tract symptoms, symptom details unspecified - N40.1?27.?Erectile dysfunction, unspecified erectile dysfunction type - N52.9?28.?Nocturia - R35.1?29.?Personal history of nicotine dependence - Z87.891?30.?Overweight - E66.3?31.?Glaucoma, unspecified glaucoma type, unspecified laterality - H40.9?32.?Major depressive disorder, recurrent, in full remission - F33.42 33.?Unilateral primary osteoarthritis, right hip - M16.11?34.?snf (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 - Z79.4?35.?Low back pain, unspecified back pain laterality, unspecified chronicity, unspecified whether sciatica present - M54.50? Plan: * Treatment: * Procedure Codes:? Care Plan: * Problems:? * * Sign off status: Completed true * Provider:?Operations Clinical Date:?09/2023 Generated for Kelin chang/Elier/eTransmitting on:?08/05/2024 01:51 PM EDT History and Physical Notes * [...] Member 's home Provider's location during visit:: Michaeli bernabe's home office Member Verbal Consent Obtained:: Yes
--- OUTSIDE RECORDS SUMMARY | 2024-08-05 13:52 | XMS_ITS | Clinical Summary ---
Author Organization [facility] Address [address] [place] [address] Phone Care Team Providers Care Manager Style Name Role Phone Anel chang JUD Primary Care Provider [phone] Allergies Active Allergy Reactions Criticality Noted Date Comments Lisinopril Cough High 10/15/2023 Medications omeprazole (PriLOSEC) [address] capsule Route: Take 1 Capsule by mouth daily. - Oral Active valsartan (DIOVAN) 160 mg tablet Route: Take 1 Tablet by mouth daily. - Oral Active diclofenac (VOLTAREN) 1 % topical gel expireed 03/27/20 24 Active lisinopril-hydroC HLOROthiazide (PRINZIDE,ZESTORE TIC) 10-12.5 mg per tablet Take 1 tablet by mouth daily. Active insulin glargine (Lantus U-100 Insulin) 100 unit/mL injection Route: Inject 50 Units into the skin. - Subcutaneous 12/08/19 17 Active HYDROcodone-aceta minophen (NORCO) 5-325 mg per tablet - Route: Take 1 Tablet by mouth. - Ora 03/05/20 18 Active aspirin 81 mg EC tablet Take 1 tablet (81 mg total) by mouth daily. 08/09/19 18 Active amoxicillin-clavu lanate (AUGMENTIN) 875-125 mg per tablet - Route: Take by mouth. - Oral 03/05/20 18 Active acetaminophen (TYLENOL) 500 mg tablet Take 2 tablets (1,000 mg total) by mouth. 10/29/19 24 Active albuterol HFA (PROAIR HFA ; PROVENTIL HFA ; VENTOLIN HFA) 90 mcg/actuation inhaler Inhale 2 puffs by mouth. 05/14/19 25 Active amLODIPine (NORVASC) 5 mg tablet Take 1 tablet (5 mg total) by mouth 1 (one) time each day. Active ammonium lactate (LAC-HYDRIN) 12 % lotion Apply topically. 05/30/19 Active atorvastatin (LIPITOR) 80 mg tablet Take 40 mg by mouth. 02/22/20 24 Active benzonatate (TESSALON) 100 mg capsule Take 1 capsule (100 mg total) by mouth 3 times daily as needed. 05/14/19 25 Active bismuth subsalicylate 525 mg/15 mL suspension Take by mouth. 03/12/20 24 Active bumetanide (BUMEX) 0.5 mg tablet Take 1 tablet (0.5 mg total) by mouth daily. 04/09/20 24 Active cetirizine (ZyrTEC) 10 mg tablet Take 1 tablet (10 mg total) by mouth daily. 05/14/19 Active cholecalciferol (VITAMIN D-3) 50 mcg (2,000 unit) tablet Take 1 tablet (2,000 Units total) by mouth. 03/28/20 24 Active cloNIDine (NHNBAIUP-QCS-1) 0.2 mg/[address] on the skin. 04/30/19 25 Active Farxiga 5 mg tablet 1 tablet (5 mg total) 1 (one) time each day at the same time. Active glucose 4 gram chewable tablet Chew 4 tablets (16 g total). 12/26/19 24 Active dicyclomine (BENTYL) 10 mg capsule 1 capsule (10 mg total) every 6 hours. Active docusate sodium (COLACE) 50 mg capsule Take 1 capsule (50 mg total) by mouth. 02/08/20 Active fluticasone propionate (FLONASE) 50 mcg/actuation nasal spray Administer 1 spray into affected nostril(s) daily. 05/14/19 25 Active hydrALAZINE (APRESOLINE) 50 mg tablet Take 2 tablets (100 mg total) by mouth 3 times daily. 04/03/20 24 Active hydroCHLOROthiazi de (MICROZIDE) 12.5 mg capsule 1 (one) time each day at the same time. Active hydrOXYzine HCL (ATARAX) 10 mg tablet TAKE 1 TABLET BY MOUTH DAILY NEEDED FOR ITCHING Active insulin aspart (NovoLOG) 100 unit/mL injection Inject under the skin. Active insulin aspart protamine-insulin aspart (NovoLOG 70/30) 100 unit/mL (70-30) injection Inject under the skin. 02/22/20 24 Active trospium (SANCTURA) 20 mg tablet Take 1 tablet (20 mg total) by mouth 2 (two) times a day. 05/06/19 25 Active tamsulosin (FLOMAX) 0.4 mg 24 hr capsule Take 1 capsule (0.4 mg total) by mouth. at bedtime Active linaGLIPtin 5 mg tablet Take 1 tablet (5 mg total) by mouth daily. 04/05/20 18 Active insulin glargine-yfgn 100 unit/mL (3 mL) injection Inject under the skin. 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, bilateral (CMS/HCC V24, CMS/HCC V28) 07/25/2024 Type 2 diabetes mellitus wit h diabetic peripheral angiopathy without gangrene (CMS/HCC V24, CMS/HCC V28) 07/25/2024 Tinea unguium 07/25/2024 Sensorineural hearing loss, bilateral 07/25/2024 Rash and other nonspecific skin eruption 025 Primary open-angle glaucoma, bilateral, moderate stage 07/25/2024 Overweight 07/25/2024 Low back pain 07/25/2024 Nocturia 07/25/2024 Nondependent alcohol abuse 07/25/2024 Hypertensive heart and chronic kidney disease Overview (07/25/2024): Oct 14, 2021 Entered By: RASHID CEDILLO Comment: He Chooses Private Care for This Dec 01, 2022 Entered By: RASHID CEDILLO Comment: US, Aorta DEC 13 Dawson: no AAA Jul 09, 2023 Entered By: RASHID CEDILLO Comment: hypertension Essential (primary) hypertension 07/25/2024 Postoperative infection 05/19/2024 Trigger finger of right thumb 05/19/2024 Encounters Date Type Department Care Team Description 07/08/2024 11:55 AM EDT - 07/08/2024 11:59 PM EDT Hospital Encounter [facility] MRI [address] [place] [address] Arm weakness Discharge Disposition: Home or Self Care 06/27/2024 11:15 AM EST Office Visit Orthopedic Surgery [facility] [address] [phone] Anabelle Koehler PA Arm weakness (Primary Dx) 06/25/2024 10:37 AM EST - 06/25/2024 11:59 PM EST Hospital Encounter [facility] MRI [address] [place] [address] Acute pain of right shoulder; Arm weakness Discharge Disposition: Home or Self Care 06/17/2024 1:45 PM EST Office Visit Orthopedic Surgery [facility] [address] [phone] Anabelle Koehler PA Acute pain of right shoulder (Primary Dx); Arm weakness 05/07/2024 12:15 PM EST - 05/07/2024 11:59 PM EST Hospital Encounter [facility] Xray [address] [place] [address] Pain in right shoulder Discharge Disposition: Home or Self Care from Last 3 Months Immunizations Name Administration Dates Next Due DTaP, Unspecified 11/25/2010 Influenza Quadravalent, 0.5m l (Fluad) 65yo and older 03/15/2022 Influenza Quadravalent, 0.5m l (Fluzone High-dose) 65yo and older 01/15/2023 Influenza Quadrivalent, 0.5m l, preservative free (Fluarix; FluLaval; Fluzone) ages 6mo and older (Afluria) 3yo and older 01/17/2021,01/07/2020,12/26/2018 Influenza trivalent, 0.5mL ( Fluzone High-dose) 65yo and older 01/23/2024 Influenza trivalent, with pr eservative (Fluzone; Afluria) 6mo and older 01/23/2018,02/14/2017 Influenza, Unspecified 02/01/2016,2014,01/14/2014,01/02,01/10/2012,02/23/2011,01/17/2011 ,01/21/2010,01/22/2009,01/28/2008,12/2006,03/14/2006,02/28/2005, 4,03/16/2003 MMR, measles mumps and rubel la Live (Priorix; M-M-R II) 12mo and older 03/24/1996 Moderna (age 6mo & older) Bi valent, COVID-19, 0.5 mL or 0.25 mL dosage 01/31/2022 Moderna SARS-CoV-2 COVID-19, mRNA, LNP-S, preservative free 04/02/2021 PPD Test 09/30/2014 Pfizer SARS-CoV-2 COVID-19, mRNA, LNP-S, preservative free 07/20/2020,06/29/2020 Pneumococcal conjugate 20 va lent (Prevnar 20, PCV 20) 2mo and older 07/27/2022 Pneumococcal polysaccharide 23 valent (Pneumovax 23) 2yo and older 07/22/2021,12/07/2016,09/30/2014 Pneumococcal, Unspecified 03/14/2006 RSV, bivalent, protein subun it RSVpreF, 0.5mL, Preservative Free (ABRYSVO) 60yo and older or 32 through 36 wks of 04/03/2023 Tdap Tetanus diptheria acell ular pertussis (Boostrix; Adacel) 7yo and older 07/27/2022,09/30/2014 Zoster Live 08/08/2017 Zoster recombinant (Shingrix ) 19yo and older 02/28/2023 Social History Tobacco Use Types Packs/Day Years [...] Care Team (Late st Contact Info) Description 08/08/2024 1:30 PM EDT Consult Neurosurgery [place] [facility] [address] [facility] [address] [place] [id number] Jaxon Anne PA [address] [facility] [address] [place] [address] 08/11/2024 12:30 PM EDT Appointment [facility] Neurodiagnostic [address] [place] [address] Health Maintenance Due Date Last Done Comments Diabetes: Annual Foot Exam 1966 Diabetes: Annual Retina Eye Exam 1966 Hepatitis A Vaccines (1 of 2 - Risk 2-dose series) 07/13/1975 Abdominal Aortic Aneurysm (AAA) Screen 03/22/2022 Colorectal Cancer Screening: Colonoscopy 03/22/2022 Falls Risk Assessment 03/22/2022 Hepatitis C Screening 03/22/2022 Medicare Annual Wellness Visit 03/22/2022 Social Influencers of Health Screening 03/22/2022 Zoster Vaccines (3 of 3) 04/25/2023 02/28/2023, 07/22 COVID-19 Vaccine (6 - Mixed Product risk season) 2024 01/23/2024, 01/31/2022, 04/02/2021, Additional history exists Diabetes: Blood Sugar Control Test (HGBA1C) 11/03/2024 05/06/2024 Depression Screening 05/06/2025 05/06/2024 Diabetes: Annual Urine Albumin-Creatinine Ratio (uACR) 05/06/2025 05/06/2024, 08/09/2017 Diabetes: Annual GFR (Glomerular Filtration Rate) 05/06/2025 05/06/2024 Hypertension/CHF/CAD Annual BMP Blood Test 05/06/2025 05/06/2024 Cholesterol Screening (Lipid Panel) 05/06/2029 05/06/2024, 05/06/2024, 08/09/2017 DTaP,Tdap,and Td Vaccines (4 - Td or Tdap) 07/27/2032 07/27/2022, 09/30/2014, 11/25/2010 MMR Vaccines Aged Out 03/24/1996 No longer eligi ble based on patient's age to complete this topic Pneumococcal Vaccine: 50+ Years Completed 07/27/2022, 07/22/2021, 12/07/2016, Additional history exists RSV Immunization Adult Patients Completed 04/03/2023 Influenza Vaccine Completed 01/23/2024, , 03/15/2022, Additional history exists HIB Vaccines Aged Out No longer eligi ble based on patient's age to complete this topic HPV Vaccines Aged Out No longer eligi ble based on patient's age to complete this topic Hepatitis B Vaccines Aged Out No long er eligible based on patient's age to complete this topic IPV Vaccines Aged Out No longer eligi ble based on patient's age to complete this topic Meningococcal ACWY Vaccine Aged Out N o longer eligible based on patient's age to complete this topic Meningococcal B Vaccine Aged Out No l onger eligible based on patient's age to complete this topic RSV Immunization Patients Under 20 months Aged Out No longer eligible based on patient's age to complete this topic Varicella Vaccines Aged Out No longer eligible based on patient's age to complete this topic Procedures Procedure Name Priority Date/Time Associated Diagnosis Comments MR CERVICAL SPINE WO CONTRAST Routine 07/08/2024 1:44 PM EDT Arm weakness MR SHOULDER WO CONTRAST RIGHT Routine 06/25/2024 11:56 AM EST Acute pain of right shoulder Arm weakness XR CERVICAL SPINE 4-5 VIEWS Routine 06/17/2024 2:09 PM EST Neck pain XR SHOULDER 2+ VIEWS RIGHT Routine 05/07/2024 12:32 PM EST Pain in right shoulder from Last 3 Months Results * MR Cervical Spine wo Contrast (07/08/2024 1:44 PM EDT) Anatomical Region Laterality Modality C-spine, Spine Magnetic Resonan ce 07/08/2024 2:32 PM EDT Impressions 07/08/2024 3:11 PM EDT Severe degenerative changes superimposed upon 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 ??Scattered small foci of myelomalacia throughout the cord from C4 through C7. Right uncovertebral spur and foraminal protrusion at C7-T1 resulting in severe right foraminal stenosis and mass effect upon the right C8 nerve. ??Correlate for right C8 radiculopathy. Uncovertebral spurring at C4-5, C5-6, and C6-7 resulting in severe foraminal stenosis bilaterally. -------- FINAL REPORT -------- Dictated By: KHUSHI BREEN Dictated Date: 07/08/2024 14:32 ET Assigned Physician: KHUSHI BREEN Reviewed and Electronically Signed By: KHUSHI BREEN Signed Date: 07/08/2024 15:11 ET Workstation ID: [id number] Transcribed By: Self Edit Transcribed Date: 07/08/2024 14:32 ET Narrative 07/08/2024 3:11 PM EDT PROCEDURE: Cervical spine MRI INDICATION: Spinal stenosis TECHNIQUE: Multiplanar, multisequence MRI of the Cervical spine Without contrast. COMPARISON: ??No priors available. FINDINGS: Reversal the normal cervical lordosis centered at C4. ??Mild anterolisthesis at C7-T1 related to degenerative facet arthritis. No fracture or suspicious marrow replacing lesion. Severe multilevel degenerative loss of disc space height with endplate spurring and degenerative endplate type I Modic changes. Advanced cervical facet arthritis, most pronounced at C3-4 and C7-T1 bilaterally. 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 upon the cord at C4-5, C5-6, and C6-7. ??Multiple small foci of volume loss and T2 hyperintensity within the cord from C4 through C7, most pronounced in the right lateral cord at the level of C6. ??No epidural collection or mass is seen within the spinal canal. Paraspinal muscles are normal. ??Foramen magnum is normal. Findings by level: C2-C3: No foraminal or spinal canal stenosis. ?? C3-C4: Posterior disc osteophyte complex and bilateral uncovertebral spurring resulting in moderate foraminal stenosis bilaterally and mild spinal canal stenosis. C4-C5: Posterior disc osteophyte complex and thickening of the posterior ligamentous structures resulting in severe spinal canal stenosis with mass effect upon the cord. ??Bilateral uncovertebral spurring and facet arthropathy resulting in severe foraminal stenosis bilaterally. C5-C6: Posterior disc osteophyte complex, eccentric to the left. ??Bilateral uncovertebral spurring. ??Severe spinal canal stenosis with mass effect upon the cord. ??Severe left greater than right foraminal stenosis. C6-C7: Posterior disc osteophyte complex and thickening of the posterior ligamentous structures. ??Severe spinal canal stenosis with mass effect upon the cord. ??Severe foraminal stenosis bilaterally, right greater than left. C7-T1: Right uncovertebral spur and foraminal protrusion resulting in severe right foraminal stenosis. ??No left foraminal or spinal canal stenosis. Procedure Note Khushi Breen MD - 07/08/2024 PROCEDURE: Cervical spine MRI INDICATION: Spinal stenosis TECHNIQUE: Multiplanar, multisequence MRI of the Cervical spine Withoutcontrast. COMPARISON: No priors available. FINDINGS: Reversal the normal cervical lordosis centered at C4. Mildanterolisthesis at C7- T1 related to degenerative facet arthritis. No fracture or suspicious marrow replacing lesion. Severe multilevel degenerative loss of disc space height with endplatespurring and degenerative endplate type I Modic changes. Advanced cervical facet arthritis, most pronounced at C3-4 and C7-T4oefrfhnxhry. 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 upon the cord at C4-5,C5-6, and C6-7. Multiple small foci of volume loss and T2 hyperintensitywithin the cord from C4 through C7, most pronounced in the right lateralcord at the level of C6. No epidural collection or mass is seen withinthe spinal canal. Paraspinal muscles are normal. Foramen magnum is normal. Findings by level: C2-C3: No foraminal or spinal canal stenosis. C3-C4: Posterior disc osteophyte complex and bilateral uncovertebralspurring resulting in moderate foraminal stenosis bilaterally and mildspinal canal stenosis. C4-C5: Posterior disc osteophyte complex and thickening of the posteriorligamentous structures resulting in severe spinal canal stenosis with masseffect upon the cord. Bilateral uncovertebral spurring and facetarthropathy resulting in severe foraminal stenosis bilaterally. C5-C6: Posterior disc osteophyte complex, eccentric to the left.Bilateral uncovertebral spurring. Severe spinal canal stenosis with masseffect upon the cord. Severe left greater than right foraminalstenosis. C6-C7: Posterior disc osteophyte complex and thickening of the posteriorligamentous structures. Severe spinal canal stenosis with mass effectupon the cord. Severe foraminal stenosis bilaterally, right greater thanleft. C7-T1: Right uncovertebral spur and foraminal protrusion resulting insevere right foraminal stenosis. No left foraminal or spinal canalstenosis. IMPRESSION: Severe degenerative changes superimposed upon congenitally narrow spinalcanal resulting in severe spinal canal stenosis with mass effect upon thecord at C4-5 and C5-6, and C6-7. Scattered small foci of myelomalaciathroughout the cord from C4 through C7. Right uncovertebral spur and foraminal protrusion at C7-T1 resulting insevere right foraminal stenosis and mass effect upon the right C8 nerve.Correlate for right C8 radiculopathy. Uncovertebral spurring at C4-5, C5-6, and C6-7 resulting in severeforaminal stenosis bilaterally. -------- FINAL REPORT -------- Dictated By: KHUSHI BREEN Dictated Date: 07/08/2024 14:32 ET Assigned Physician: KHUSHI BREEN Reviewed and Electronically Signed By: KHUSHI BREEN Signed Date: 07/08/2024 15:11 ET Workstation ID: [id number] Transcribed By: Self Edit Transcribed Date: 07/08/2024 14:32 ET Anabelle SUBRAMANIAN IMG MRI PROCEDURES Final Resu lt * MR Shoulder wo Contrast Right (06/25/2024 11:56 AM EST) Anatomical Region Laterality Modality Upper Extremities, Shoulder Right Magn etic Resonance 06/25/2024 12:1 1 PM EST Impressions 06/25/2024 1:55 PM EST 1. ??Mild supraspinatus tendinopathy. ??No cuff tear. 2. ??Moderate degenerative changes of the acromioclavicular joint. -------- FINAL REPORT -------- Dictated By: Arsalan Shen Dictated Date: 06/25/2024 12:11 ET Assigned Physician: Arsalan Shen Reviewed and Electronically Signed By: Arslaan Shen Signed Date: 06/25/2024 13:55 ET Workstation ID: [id number] Transcribed By: Self Edit Transcribed Date: 06/25/2024 12:11 ET Narrative 06/25/2024 1:55 PM EST PROCEDURE: MRI of the right shoulder without intravenous contrast. HISTORY: Shoulder pain, rotator cuff disorder suspected, xray done. COMPARISON: Radiographs dated 05/07/2024. TECHNIQUE: Multiplanar multisequence MRI of the right shoulder without intravenous contrast administration. FINDINGS: Rotator cuff: Musculature is normal in signal and bulk. ??Mild tendinopathy of the supraspinatus. ??No cuff tear. Tendons: The long biceps tendon is in a normal position in the bicipital groove and is normal in caliber and signal. Labrum: Normal. ??Curvilinear artifact projects over the posterior labrum on the axial images. Glenohumeral joint: No cartilage abnormality. ??No joint effusion. Acromioclavicular joint: Moderate degenerative change. ??Type II acromion. ??No significant subacromial impingement. Ligaments: The glenohumeral ligaments appear normal. Other: No other findings. Procedure Note Arsalan Shen MD - 06/25/2024 PROCEDURE: MRI of the right shoulder without intravenous contrast. HISTORY: Shoulder pain, rotator cuff disorder suspected, xray done. COMPARISON: Radiographs dated 05/07/2024. TECHNIQUE: Multiplanar multisequence MRI of the right shoulder withoutintravenous contrast administration. FINDINGS: Rotator cuff: Musculature is normal in signal and bulk. Mild tendinopathyof the supraspinatus. No cuff tear. Tendons: The long biceps tendon is in a normal position in the bicipitalgroove and is normal in caliber and signal. Labrum: Normal. Curvilinear artifact projects over the posterior labrumon the axial images. Glenohumeral joint: No cartilage abnormality. No joint effusion. Acromioclavicular joint: Moderate degenerative change. Type II acromion.No significant subacromial impingement. Ligaments: The glenohumeral ligaments appear normal. Other: No other findings. IMPRESSION: 1. Mild supraspinatus tendinopathy. No cuff tear. 2. Moderate degenerative changes of the acromioclavicular joint. -------- FINAL REPORT -------- Dictated By: Arsalan Shen Dictated Date: 06/25/2024 12:11 ET Assigned Physician: Arsalan Shen Reviewed and Electronically Signed By: Arsalan Shen Signed Date: 06/25/2024 13:55 ET Workstation ID: [id number] Transcribed By: Self Edit Transcribed Date: 06/25/2024 12:11 ET Anabelle SUBRAMANIAN IMG MRI PROCEDURES Final Resu lt * XR Cervical Spine 4-5 Views (06/17/2024 2:09 PM EST) Anatomical Region Laterality Modality Spine, C-spine Computed Radiogr aphy Narrative 06/17/2024 2:30 PM EST Date of Visit: 06/17/2024 Reason for visit: Right arm weakness Views: AP, oblique and lateral C-spine Comparison: None Findings: Straightening of normal cervical lordosis. ??There is mild to moderate arthritic changes at C5-C6 with some anterior bone spur formation and joint space narrowing at C5-C6. ??On AP mild neuroforaminal narrowing Impression: Mild to moderate diffuse arthritic changes. Anabelle SUBRAMANIAN [facility] [place] XR PROCEDURES Final Resul t * XR Shoulder 2+ Views Right (05/07/2024 [...] in nature, possibly old calcified hematomas. Code 35999 -------- FINAL REPORT -------- Dictated By: Miguel Kunz Dictated Date: 05/08/2024 07:57 ET Assigned Physician: Miguel Kunz Reviewed and Electronically Signed By: Miguel Kunz Signed Date: 05/08/2024 07:59 ET Workstation ID: [id number] Transcribed By: Self Edit Transcribed Date: 05/08/2024 [...] in nature, possibly old calcified hematomas. Code 54923 -------- FINAL REPORT -------- Dictated By: Miguel Kunz Dictated Date: 05/08/2024 07:57 ET Assigned Physician: Miguel Kunz Reviewed and Electronically Signed By: Miguel Kunz Signed Date: 05/08/2024 07:59 ET Workstation ID: [id number] Transcribed By: Self Edit Transcribed Date: 05/08/2024 07:57 ET us Mary SUBRAMANIAN IMG XR PROCEDURES Final Resul t from Last 3 Months Insurance [employer] MED[employer] Member Subscriber Plan / Payer (Ef fective 2021-Present) Name:Mod[place] Rogers Relation to Subscriber:Self Name:Modesto Rogers Payer ID:[id number] Group ID:[id number] Type:Not on file Address: [place] [address] [place] [phone] Care Teams Manager Style Relationship Specialty Start Date End Date Anel Padgett NP [address] [place] [id number] PCP - General Nurse Practitioner 05/07/24
--- OUTSIDE RECORDS SUMMARY | 2024-08-05 13:52 | XMS_ITS ---
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 Z79.4 and Low [...] osteoarthritis, right hip (ICD-10 - M16.11) 08/15/2023 assisted (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 (ICD-10 - Z79.4) 08/15/2023 Low back pain, unspecified back pain laterality, unspecified chronicity, unspecified whether sciatica present (ICD-10 - M54.50) Plan Of Treatment No Information Progress Notes * [place] SAM FDOB:1955 (69 yo M)Acc No.[id number]:08/15/2023 Patient:?[place] SAM F ??External Provider:?Kathya Herrera :1955???Age:68 Y???Sex:Male Arik e:08/15/2023 Address:[address], [place], [id number] Pcp:Gregor Ruiz Patient's Default Facility:[facility] Subjective: * Chief Complaints: * ???1. MDS Assessment. * HPI: ???Depression Screening:?PHQ-9?Little interest or pleasure in doing things?Not at all ?Feeling down, depressed, or hopeless?Several days ?Trouble falling or staying asleep, or sleeping too much?Not at all ?Feeling tired or having little energy?Several days ?Poor appetite or overeating?Several days ?Feeling bad about yourself or that you are a failure, or have let yourself or your family down?Not at all ?Trouble concentrating on things, such as reading the newspaper or watching television?Several days ?Moving or speaking so slowly that other people could have noticed; or the opposite, being so fidgety or restless that you have been moving around a lot more than usual?Not at all ?Thoughts that you would be better off or of hurting yourself in some way?Not at all ?Total Score?4 ?Interpretation?Minimal Depression ???Virtual Care Visit Information:?Visit Location, Methods & Consent:?*REQUIRED* Virtual Care communication method:?Phone (audio only) ?Patient's location during visit:?Member's home ?Provider's location during visit:?Provider's home office ?Member Verbal Consent Obtained:?Yes We know that your privacy is very important, and we want you to know that we take all steps to make sure your privacy is protected, including all confidentiality protections under the law. [facility] platforms are HIPAA compliant and meet other (federal and state) privacy and security laws. Even though your communications with [facility] are private and secure, there is always some risk with any information that is transmitted through the internet. * Medical History:?? * Medications:?Taking Latanopr ost 0.005 % Solution 1 drop into affected [...] Pharmacist: Member reports not using anymore * Allergies:?Lisinopril. Objective: * Vitals:? Assessment: * Assessment: 1.?Folliculitis - L73.9???2. ?Primary hypertension - I10???3.?Cigarette nicotine dependence without complication - F17.210???4.?Type 2 diabetes mellitus without complication, without long-term current use of insulin - E11.9?? 5.?Hyperlipidemia, unspecified hyperlipidemia type - E78.5???6.?Gastroesophageal reflux disease without esophagitis - K21.9???7.?Type 2 diabetes mellitus with diabetic neuropathy, without long-term current use of insulin - E11.40???8. S/P TURP - Z90.79???9.?H/O hypogonadism - Z86.39???10.?Facet arthropathy, lumbar - M47.816???11.?Diverticulitis of large intestine, unspecified bleeding status, unspecified complication status - K57.32???12.?Secondary cataract of both eyes, unspecified secondary cataract type - H26.40???13.?Left shoulder pain, unspecified chronicity - M25.512???14.?Bursitis of left shoulder - M75.52???15.?Other intervertebral disc degeneration, lumbar region - M51.36 ??16.?Spondylosis without myelopathy or radiculopathy, lumbar region - M47.816???17.?Dorsalgia, unspecified - M54.9???18.?Chronic idiopathic constipation - K59.04???19.?Pain in right foot - M79.671???20. 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 Major depressive disorder, recurrent, in full remission - F33.42???33.?Unilateral primary osteoarthritis, right hip - M16.11???34.?intermission coordinator (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 - Z79.4???35.?Low back pain, unspecified back pain laterality, unspecified chronicity, unspecified whether sciatica present - M54.50??? Plan: * Treatment: Care Plan: * Problems:? * * The named appointment provid er may or may not be the originator of this progress note, and it is not deemed complete until electronically signed by the appointment provider. Sign off status: Pending * Provider:Komal Herrera Date:? 4 Generated for Kelin chang/Elier/eTransmitting on:?08/05/2024 01:52 PM EDT History and Physical Notes * [...] including all confidentiality protections under the law. [facility]'s virtual care platforms are HIPAA compliant and meet other (federal and state) privacy and security laws. Even though your communications with [facility] are private and secure, there is always some risk with any information that is transmitted through the internet.
--- OUTSIDE RECORDS SUMMARY | 2024-08-05 13:52 | XMS_ITS ---
Author Organization [facility] liance Address [address] [place] [address] Care Team Providers Care Office Nurse Practitioner Name Role Phone Gregor Ruiz Primary Care [...] a day One a day(brand name) Active Atorvastatin Calcium 80 MG 0.5 tablet [...] 1 tablet Orally Once a day Active Problems Problem Type SNOMED Code ICD Code Onset Dates Problem Status W/U Status Risk Notes Problem [id number] Hypertensive chronic kidney disease with stage 1 through stage 4 chronic kidney disease, or unspecified chronic kidney disease (I12.9) Active confirmed Problem [id number] Tachycardia, unspecified (R00.0) Active confirmed Encounters Encounter Location Date Provider Diagnosis [address] [address] 03/10/2024 [facility] Folliculitis L73.9 ; Primary [...] Unilateral primary osteoarthritis, right hip M16.11 ; 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 ; Low back pain, unspecified back pain laterality, unspecified chronicity, unspecified whether sciatica present M54.50 ; Hypertensive chronic kidney disease with stage 1 through stage 4 chronic kidney disease, or unspecified chronic kidney disease I12.9 and Tachycardia, unspecified R00.0 Assessments Encounter Date Diagnosis (ICD Code) Assessment Notes Treatment Notes Treatment Clinical Notes Section Notes 03/10/2024 Folliculitis (ICD-10 - L73.9) Problem list updated using [employer] 03/10/2024 Primary hypertension (ICD-10 - I10) Problem list updated using [employer] 03/10/2024 Cigarette nicotine dependence without complication (ICD-10 - F17.210) Problem list updated using [employer] 03/10/2024 Type 2 diabetes mellitus without complication, without long-term current use of insulin (ICD-10 - E11.9) Problem list updated using [employer] 03/10/2024 Hyperlipidemia, unspecified hyperlipidemia type (ICD-10 - E78.5) Problem list updated using [employer] 03/10/2024 Gastroesophageal reflux disease without esophagitis (ICD-10 - K21.9) Problem list updated using [employer] 03/10/2024 Type 2 diabetes mellitus with diabetic neuropathy, without long-term current use of insulin (ICD-10 - E11.40) Problem list updated using [employer] 03/10/2024 S/P TURP (ICD-10 - Z90.79) Problem list updated using [employer] 03/10/2024 H/O hypogonadism (ICD-10 - Z86.39) Problem list updated using [employer] 03/10/2024 Facet arthropathy, lumbar (ICD-10 - M47.816) Problem list updated using [employer] 03/10/2024 Diverticulitis of large intestine, unspecified bleeding status, unspecified complication status (ICD-10 - K57.32) Problem list updated using [employer] 03/10/2024 Secondary cataract of both eyes, unspecified secondary cataract type (ICD-10 - H26.40) Problem list updated using [employer] 03/10/2024 Left shoulder pain, unspecified chronicity (ICD-10 - M25.512) Problem list updated using [employer] 03/10/2024 Bursitis of left shoulder (ICD-10 - M75.52) Problem list updated using [employer] 03/10/2024 Other intervertebral disc degeneration, lumbar region (ICD-10 - M51.36) Problem list updated using [employer] 03/10/2024 Spondylosis without myelopathy or radiculopathy, lumbar region (ICD-10 - M47.816) Problem list updated using [employer] 03/10/2024 Dorsalgia, unspecified (ICD-10 - M54.9) Problem list updated using [employer] 03/10/2024 Chronic idiopathic constipation (ICD-10 - K59.04) Problem list updated using [employer] 03/10/2024 Pain in right foot (ICD-10 - M79.671) Problem list updated using [employer] 03/10/2024 Pain in left foot (ICD-10 - M79.672) Problem list updated using [employer] 03/10/2024 Tinea unguium (ICD-10 - B35.1) Problem list updated using [employer] 03/10/2024 Hepatic cirrhosis, unspecified hepatic cirrhosis type, unspecified whether ascites present (ICD-10 - K74.60) Problem list updated using [employer] 03/10/2024 Cholesterolosis of gallbladder (ICD-10 - K82.4) Problem list updated using [employer] 03/10/2024 Abdominal pain, unspecified site (ICD-10 - R10.9) Problem list updated using [employer] 03/10/2024 Trigger thumb, left thumb (ICD-10 - M65.312) Problem list updated using [employer] 03/10/2024 Benign prostatic hyperplasia with lower urinary tract symptoms, symptom details unspecified (ICD-10 - N40.1) Problem list updated using [employer] 03/10/2024 Erectile dysfunction, unspecified erectile dysfunction type (ICD-10 - N52.9) Problem list updated using [employer] 03/10/2024 Nocturia (ICD-10 - R35.1) Problem list updated using [employer] 03/10/2024 Personal history of nicotine dependence (ICD-10 - Z87.891) Problem list updated using [employer] 03/10/2024 Overweight (ICD-10 - E66.3) Problem list updated using [employer] 03/10/2024 Glaucoma, unspecified glaucoma type, unspecified laterality (ICD-10 - H40.9) Problem list updated using [employer] 03/10/2024 Major depressive disorder, recurrent, in full remission (ICD-10 - F33.42) Problem list updated using [employer] 03/10/2024 Unilateral primary osteoarthritis, right hip (ICD-10 - M16.11) Problem list updated using [employer] 03/10/2024 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 (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 - Z79.4) Problem list updated using [employer] 03/10/2024 Low back pain, unspecified back pain laterality, unspecified chronicity, unspecified whether sciatica present (ICD-10 - M54.50) Problem list updated using [employer] 03/10/2024 Hypertensive chronic kidney disease with stage 1 through stage 4 chronic kidney disease, or unspecified chronic kidney disease (ICD-10 - I12.9) Problem list updated using [employer] 03/10/2024 Tachycardia, unspecified (ICD-10 - R00.0) Problem list updated using [employer] Plan Of Treatment No Information Progress Notes * [place] SAM FDOB:1955 (68 yo M)Acc No.[id number]:03/10/2024 Patient:?[place] SAM F ??External Provider:?[facility]?Resource:Chin Marinelli :1955???Age:68 Y???Sex:Male Arik e:03/10/2024 Address:[address] [id number] Pcp:Gregor Ruiz Patient's Default Facility:[facility] Subjective: * Chief Complaints: * ???MDS Assessment [...] in some way?Not at all ?Total Score?0 ???COVID-19 Screening (Questions Revised 08/25/2019):?COVID-19 Screening?Member or any household member has any new or worsening breathing problems:?No ?Member or any household member has other general or non-respiratory symptoms:?No ?Member or any household member has been in close contact with anyone diagnosed or suspected case of COVID:?No * Medical History:?? * Surgical History:? * Hospitalization/Major Diagno stic Procedure:? * Medications:?TakingFarxiga 5 MG Tablet 1 tablet Orally Once a day predniSONE 10 MG Tablet take 4 tabs daily for 3 day, then 3 tabs for 3 days, then 2 tabs for 3 days, then 1 tab for 3 days. Orally Once a day Magnesium Oxide 420 MG Tablet 1 tablet as needed Orally Once a day hydrALAZINE HCl 50 MG Tablet 1 tablet with food Orally 3 times per day Lidocaine 5 % Patch 1 patch remove [...] Capsule 1 capsule Orally Once a day Latanoprost 0.005 % Solution 1 drop into affected eye in the evening Ophthalmic Once a day Insulin Aspart 100 UNIT/ML Solution Pen-injector 22 units before breakfast, lunch and dinner Subcutaneous Three times a day Insulin Glargine 100 UNIT/ML Solution Pen-injector 62 units Subcutaneous At bedtime Valsartan 320 MG Tablet 1 tablet Orally Once a day Multivitamin - Tablet 1 tablet Orally Once a day One a day(brand name)Atorvastatin Calcium 80 MG Tablet 0.5 tablet Orally Once a day Taking Farxiga 5 MG Tablet 1 tablet Orally Once a day Taking predniSONE 10 MG Tablet take 4 tabs daily for 3 day, then 3 tabs for 3 days, then 2 tabs for 3 days, then 1 tab for 3 days. Orally Once a day Taking Magnesium Oxide 420 MG Tablet 1 tablet as needed Orally Once a day Taking hydrALAZINE HCl 50 MG Tablet 1 tablet with food Orally 3 times per day Taking Lidocaine 5 % Patch 1 [...] 1 capsule Orally Once a day Taking Latanoprost 0.005 % Solution 1 drop into affected eye in the evening Ophthalmic Once a day Taking Insulin Aspart 100 UNIT/ML Solution Pen-injector 22 units before breakfast, lunch and dinner Subcutaneous Three times a day Taking Insulin Glargine 100 UNIT/ML Solution Pen-injector 62 units Subcutaneous At bedtime Taking Valsartan 320 MG Tablet 1 tablet Orally Once a day Taking Multivitamin - Tablet 1 tablet Orally Once a day One a day(brand name)Taking Atorvastatin Calcium 80 MG Tablet 0.5 tablet Orally Once a day Not-TakingmetFORMIN HCl 500 MG Tablet 1 tablet with a meal Orally Once a day , Notes to Pharmacist: states was d/cOmeprazole 20 MG Capsule Delayed Release 1 capsule 30 minutes before morning meal Orally Once a day amLODIPine Besylate 5 MG Tablet 1 tablet Orally Once a day , Notes to Pharmacist: states was d/chydroCHLOROthiazide 12.5 MG Capsule 1 capsule in the [...] List reviewed and reconciled with the patientNot-Taking metFORMIN HCl 500 MG Tablet 1 tablet with a meal Orally Once a day , Notes to Pharmacist: states was d/cNot- Taking Omeprazole 20 MG Capsule Delayed Release 1 capsule 30 minutes before morning meal Orally Once a day Not-Taking amLODIPine Besylate 5 MG Tablet 1 tablet Orally Once a day , Notes to Pharmacist: states was d/cNot-Taking hydroCHLOROthiazide 12.5 MG Capsule 1 capsule in [...] reviewed and reconciled with the patient * Allergies:?Lisinoprilno[Robbie rgies Verified] Objective: Assessment: * Assessment: 1.?Folliculitis - L73.9?2.?P [...] F33.42 33.?Unilateral primary osteoarthritis, right hip - M16.11?34.?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 Problem list updated using [employer]. Plan: * Treatment: * Procedure Codes:? Care Plan: * Problems:? * * Sign off status: Completed true * Provider:?[facility] Date:?02/21 Generated for Kelin chang/Elier/Radhaitting on:?08/05/2024 01:51 PM EDT History and Physical [...]
--- OUTSIDE RECORDS SUMMARY | 2024-08-05 13:52 | XMS_ITS | Patient Health Record ---
Author Organization [facility] [place] [address] Care Team Providers Care Clinical Services Assistant Name Role Phone Gregor Ruiz Primary Care Provider Unavailabl e Clinical, Operations Unavailable Unavailable Kathya Herrera Unavailable [phone] Allergies Allergen (clinical drug ingredient) Drug/Non Drug Allergy documented on EMR Reaction Allergy Type Onset Date Status lisinopril Lisinopril Unknown Drug Allergy Activ e Reason For Referral No Information Medications Medication SIG (Take, Route, Frequency, Duration) Notes Start Date End Date Status metFORMIN HCl 500 MG 1 tablet with a meal Orally Once a day states was d/c Not-Taking Multivitamin - 1 tablet Orally Once a day One a day(brand name) Active Atorvastatin Calcium 80 MG 0.5 tablet Or ally Once a day Active Insulin Glargine 100 UNIT/ML 62 units Subcutaneous At bedtime Active Valsartan 320 MG 1 tablet Orally Once a day Active Latanoprost [...] 1 tablet Orally Once a day Active Carboxymethylcellulose Sod PF 0.5 % as directed Ophthalmic Four times a day Active Vitamin D 50 MCG (1999 UT) 1 tablet Oral ly Once a day Active hydrALAZINE HCl 50 MG 1 tablet with food Orally 3 times per day Active Dicyclomine HCl 10 MG 1 capsules Orally Four times a day Member reports not using anymore Not-Taking Lidocaine 5 % 1 patch remove after 12 hours Externally Once a day Active Pregabalin 100 MG 1 capsule Orally Once a day Member reports not using anymore Not-Taking predniSONE 10 MG take 4 tabs daily for 3 day, then 3 tabs for 3 days, then 2 tabs for 3 days, then 1 tab for 3 days. Orally Once a day Active Aspirin 81 81 MG 1 tablet Orally Once a day Member reports not using anymore Not-Taking Magnesium Oxide 420 MG 1 tablet as needed Orally Once a day Active Centrum Adults - as directed Orally Duplicate Not-Taking Trulicity 1.5 MG/0.5ML as directed Subcutaneous Member reports not using anymore, Switch to diffiennt Insulin Not-Taking Farxiga 5 MG 1 tablet Orally Once a day Active Naproxen 500 MG 1 tablet with food or milk as needed Orally every 12 hrs Member reports not using anymore Not-Taking hydroCHLOROthiazide 12.5 MG 1 capsule in [...] Once a day states was d/c Not-Taking Immunizations Vaccine Route Administration Date Status Comme nts Flu Vac (Fluzone /Alfuria) QIV PFS Unknown 01/17/2021 A dministered Moderna COVID-19 Vaccine IM Unknown 04/02/2021 Administ ered Pfizer-BioNTech COVID-19 Vaccine IM Unknown 06/29/2020 Administered Pfizer-BioNTech COVID-19 Vaccine IM Unknown 07/20/2020 Administered Pneumococcal Vac (Pneumovax 23) SDV / PFS, IM Unknown 07/22/2021 Administered Problems Problem Type SNOMED Code ICD Code Onset Dates Problem Status W/U Status Risk Notes Problem 6494121800 Personal history of nicotine dependence (Z87.891) Active confirmed Problem 052515591 Tinea unguium (B35.1) Active confirmed Problem 791114663 Overweight (E66.3) Active confirmed Problem 8049731 Tachycardia, unspecified (R00.0) Active confirmed Problem 86811900 Abdominal pain, unspecified site (R10.9) Active confirmed Problem 010653671626407 Trigger thumb, l eft thumb (M65.312) Active confirmed Problem 606627647944214 Pain in left christina t (M79.672) Active confirmed Problem 935046112444308 Bursitis of left shoulder (M75.52) Active confirmed Problem 557678927 Spondylosis with out myelopathy or radiculopathy, lumbar region (M47.816) Active confirmed Problem 814052472 Dorsalgia, unspecified (M54.9) Active confirmed Problem 860419928528331 Pain in right fo ot (M79.671) Active confirmed Problem 05367238 Folliculitis (L73.9) Active confirmed Problem 822897795 Facet arthropath y, lumbar (M47.816) Active confirmed Problem 29274455 Cigarette nicoti ne dependence without complication (F17.210) Active confirmed Problem 53905442 Major depressive disorder, recurrent, in full remission (F33.42) Active confirmed Problem 19085671 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) Active confirmed Problem 564067711414832 Unilateral prima ry osteoarthritis, right hip (M16.11) Active confirmed Problem 98318169 Other intervertebral disc degeneration, lumbar region (M51.36) Active confirmed Problem 613671140 Nocturia (R35.1) Active confirmed Problem 678083660 Gastroesophageal reflux disease without esophagitis (K21.9) Active confirmed Problem 824927930 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) Active confirmed Problem 707244875379548 Hypertensive chronic kidney disease with stage 1 through stage 4 chronic kidney disease, or unspecified chronic kidney disease (I12.9) Active confirmed Problem 458952383 Erectile dysfunction, unspecified erectile dysfunction type (N52.9) Active confirmed Problem 602744892 S/P TURP (Z90.79) Active confirmed Problem 62041607 Primary hypertension (I10) Active confirmed Problem 36678753 Hyperlipidemia, unspecified hyperlipidemia type (E78.5) Active confirmed Problem 5713750292 Left shoulder pa in, unspecified chronicity (M25.512) Active confirmed Problem 915527865 Type 2 diabetes mellitus without complication, without long-term current use of insulin (E11.9) Active confirmed Problem 34789956 Type 2 diabetes mellitus with diabetic neuropathy, without long-term current use of insulin (E11.40) Active confirmed Problem 03069183 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) Active confirmed Problem 693050016 Secondary catara ct of both eyes, unspecified secondary cataract type (H26.40) Active confirmed Problem 562581905 Benign prostatic hyperplasia with lower urinary tract symptoms, symptom details unspecified (N40.1) Active confirmed Problem 95709000 Glaucoma, unspecified glaucoma type, unspecified laterality (H40.9) Active confirmed Problem 0481812 Diverticulitis o f large intestine, unspecified bleeding status, unspecified complication status (K57.32) Active confirmed Problem 30604080 Hepatic cirrhosi s, unspecified hepatic cirrhosis type, unspecified whether ascites present (K74.60) Active confirmed Problem 188686009 Low back pain, unspecified back pain laterality, unspecified chronicity, unspecified whether sciatica present (M54.50) Active confirmed Problem 246551086 H/O hypogonadism (Z86.39) Active confirmed Encounters Encounter Location Date Provider Diagnosis [address] [address] 03/10/2024 Operations Clinical Folliculitis L73.9 ; Primary [...] Unilateral primary osteoarthritis, right hip M16.11 ; group home (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 Z79.4 ; Low back pain, unspecified back pain laterality, unspecified chronicity, unspecified whether sciatica present M54.50 ; Hypertensive chronic kidney disease with stage 1 through stage 4 chronic kidney disease, or unspecified chronic kidney disease I12.9 and Tachycardia, unspecified R00.[address] [address] 08/27/2023 Operations Clinical Folliculitis L73.9 ; Primary [...] Unilateral primary osteoarthritis, right hip M16.11 ; 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 Z79.4 and Low back pain, unspecified back pain laterality, unspecified chronicity, unspecified whether sciatica present M54.50 Assessments Encounter Date Diagnosis (ICD Code) Assessment Notes Treatment Notes Treatment Clinical Notes Section Notes 08/27/2023 Folliculitis (ICD-10 - L73.9) 03/10/2024 Folliculitis (ICD-10 - L73.9) Problem list updated using [employer] 03/10/2024 Primary hypertension (ICD-10 - I10) Problem list updated using [employer] 08/27/2023 Primary hypertension (ICD-10 - I10) 08/27/2023 Cigarette nicotine dependence without complication (ICD-10 - F17.210) 03/10/2024 Cigarette nicotine dependence without complication (ICD-10 - F17.210) Problem list updated using [employer] 03/10/2024 Type 2 diabetes mellitus without complication, without long-term current use of insulin (ICD-10 - E11.9) Problem list updated using [employer] 08/27/2023 Type 2 diabetes mellitus without complication, without long-term current use of insulin (ICD-10 - E11.9) 08/27/2023 Hyperlipidemia, unspecified hyperlipidemia type (ICD-10 - E78.5) 03/10/2024 Hyperlipidemia, unspecified hyperlipidemia type (ICD-10 - E78.5) Problem list updated using [employer] 03/10/2024 Gastroesophageal reflux disease without esophagitis (ICD-10 - K21.9) Problem list updated using [employer] 08/27/2023 Gastroesophageal reflux disease without esophagitis (ICD-10 - K21.9) 08/27/2023 Type 2 diabetes mellitus with diabetic neuropathy, without long-term current use of insulin (ICD-10 - E11.40) 03/10/2024 Type 2 diabetes mellitus with diabetic neuropathy, without long-term current use of insulin (ICD-10 - E11.40) Problem list updated using [employer] 03/10/2024 S/P TURP (ICD-10 - Z90.79) Problem list updated using Remedia 08/27/2023 S/P TURP (ICD-10 - Z90.79) 08/27/2023 H/O hypogonadism (ICD-10 - Z86.39) 03/10/2024 H/O hypogonadism (ICD-10 - Z86.39) Problem list updated using [employer] 03/10/2024 Facet arthropathy, lumbar (ICD-10 - M47.816) Problem list updated using [employer] 08/27/2023 Facet arthropathy, lumbar (ICD-10 - M47.816) 08/27/2023 Diverticulitis of large intestine, unspecified bleeding status, unspecified complication status (ICD-10 - K57.32) 03/10/2024 Diverticulitis of large intestine, unspecified bleeding status, unspecified complication status (ICD-10 - K57.32) Problem list updated using [employer] 03/10/2024 Secondary cataract of both eyes, unspecified secondary cataract type (ICD-10 - H26.40) Problem list updated using [employer] 08/27/2023 Secondary cataract of both eyes, unspecified secondary cataract type (ICD-10 - H26.40) 08/27/2023 Left shoulder pain, unspecified chronicity (ICD-10 - M25.512) 03/10/2024 Left shoulder pain, unspecified chronicity (ICD-10 - M25.512) Problem list updated using [employer] 03/10/2024 Bursitis of left shoulder (ICD-10 - M75.52) Problem list updated using [employer] 08/27/2023 Bursitis of left shoulder (ICD-10 - M75.52) 08/27/2023 Other intervertebral disc degeneration, lumbar region (ICD-10 - M51.36) 03/10/2024 Other intervertebral disc degeneration, lumbar region (ICD-10 - M51.36) Problem list updated using [employer]edia 03/10/2024 Spondylosis without myelopathy or radiculopathy, lumbar region (ICD-10 - M47.816) Problem list updated using [employer] 08/27/2023 Spondylosis without myelopathy or radiculopathy, lumbar region (ICD-10 - M47.816) 08/27/2023 Dorsalgia, unspecified (ICD-10 - M54.9) 03/10/2024 Dorsalgia, unspecified (ICD-10 - M54.9) Problem list updated using [employer] 03/10/2024 Chronic idiopathic constipation (ICD-10 - K59.04) Problem list updated using [employer] 08/27/2023 Chronic idiopathic constipation (ICD-10 - K59.04) 08/27/2023 Pain in right foot (ICD-10 - M79.671) 03/10/2024 Pain in right foot (ICD-10 - M79.671) Problem list updated using [employer] 03/10/2024 Pain in left foot (ICD-10 - M79.672) Problem list updated using [employer]edia 08/27/2023 Pain in left foot (ICD-10 - M79.672) 08/27/2023 Tinea unguium (ICD-10 - B35.1) 03/10/2024 Tinea unguium (ICD-10 - B35.1) Problem list updated using [employer] 03/10/2024 Hepatic cirrhosis, unspecified hepatic cirrhosis type, unspecified whether ascites present (ICD-10 - K74.60) Problem list updated using [employer] 08/27/2023 Hepatic cirrhosis, unspecified hepatic cirrhosis type, unspecified whether ascites present (ICD-10 - K74.60) 08/27/2023 Cholesterolosis of gallbladder (ICD-10 - K82.4) 03/10/2024 Cholesterolosis of gallbladder (ICD-10 - K82.4) Problem list updated using [employer] 03/10/2024 Abdominal pain, unspecified site (ICD-10 - R10.9) Problem list updated using [employer] 08/27/2023 Abdominal pain, unspecified site (ICD-10 - R10.9) 08/27/2023 Trigger thumb, left thumb (ICD-10 - M65.312) 03/10/2024 Trigger thumb, left thumb (ICD-10 - M65.312) Problem list updated using [employer] 03/10/2024 Benign prostatic hyperplasia with lower urinary tract symptoms, symptom details unspecified (ICD-10 - N40.1) Problem list updated using [employer] 08/27/2023 Benign prostatic hyperplasia with lower urinary tract symptoms, symptom details unspecified (ICD-10 - N40.1) 08/27/2023 Erectile dysfunction, unspecified erectile dysfunction type (ICD-10 - N52.9) 03/10/2024 Erectile dysfunction, unspecified erectile dysfunction type (ICD-10 - N52.9) Problem list updated using [employer] 03/10/2024 Nocturia (ICD-10 - R35.1) Problem list updated using [employer] 08/27/2023 Nocturia (ICD-10 - R35.1) 08/27/2023 Personal history of nicotine dependence (ICD-10 - Z87.891) 03/10/2024 Personal history of nicotine dependence (ICD-10 - Z87.891) Problem list updated using [employer] 03/10/2024 Overweight (ICD-10 - E66.3) Problem list updated using [employer]edia 08/27/2023 Overweight (ICD-10 - E66.3) 08/27/2023 Glaucoma, unspecified glaucoma type, unspecified laterality (ICD-10 - H40.9) 03/10/2024 Glaucoma, unspecified glaucoma type, unspecified laterality (ICD-10 - H40.9) Problem list updated using [employer] 03/10/2024 Major depressive disorder, recurrent, in full remission (ICD-10 - F33.42) Problem list updated using [employer] 08/27/2023 Major depressive disorder, recurrent, in full remission (ICD-10 - F33.42) 08/27/2023 Unilateral primary osteoarthritis, right hip (ICD-10 - M16.11) 03/10/2024 Unilateral primary osteoarthritis, right hip (ICD-10 - M16.11) Problem list updated using [employer] 03/10/2024 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 (ICD-10 - Z79.4) Problem list updated using Remedia 08/27/2023 group home (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 (ICD-10 - Z79.4) 08/27/2023 Low back pain, unspecified back pain laterality, unspecified chronicity, unspecified whether sciatica present (ICD-10 - M54.50) 03/10/2024 Low back pain, unspecified back pain [...] using Remedia Plan Of Treatment No Information Insurance Providers Payer Name Payer Address Payer Phone Subscriber Number Group Number Insured Name Patient Relationship to Insured Coverage Start Date Coverage End Date [facility] [employer] ([id number] [place] [address] [id number] [place] Rogers Self - patient is the insured 2 [phone]
[2024-08-05 18:43] LABS: Anion Gap 12 (12-20); Blood Urea Nitrogen 39 mg/dL (9-16); Calcium 8.1 mg/dL (8.4-10.2); Carbon Dioxide 20 mmol/L (22-29); Chloride 108 mmol/L (96-108); Estimated Glomerular Filt Rate 19; Glucose Random 109 mg/dL (60-115); Potassium 4.6 mmol/L (3.3-5.1); Sodium 135 mmol/L (135-145)
== END 2024-08-05 11:15 | disposition home or self-care (01) ==
LOC: HO.HKASLDS 11:14
PROVIDERS: Visit Provider Internal Medicine Hypertension Specialist
DX: N18.9 Chronic kidney disease, unspecified (principal)
CPT/HCPCS: 36415; 80048

== ENCOUNTER 2024-08-06 10:13 | Outpatient (AMB) | payer MEDICARE, SELFPAY ==
[2024-08-06 10:35] VITALS: BP 158/80; PULSE 104; O2SAT 98; BMI 29.6
--- NOTE | 2024-08-06 10:35 | HO.NEPHOV ---
Vital Signs 08/06/24 10:35 Height 5 ft 9 in Weight 200 lb 2 oz BMI 29.6 BP 158/80 H Blood Pressure Location Lt brachial Position Sitting Pulse 104 H Pulse Source Pulse Oximeter Pulse Oximetry (%) 98 Oxygen Delivery Method Room Air Intake Visit Reasons: 6-8wk follow-up w/labs Conf Allergies lisinopril Allergy (Unknown, Verified 08/06/24 10:36) cough Medication List - Last Reconciled 08/06/24 by Tera Aguirre MD albuterol sulfate 90 mcg/actuation inhalation amlodipine 5 mg PO DAILY atorvastatin 80 mg PO QDAY blood sugar diagnostic (FreeStyle Lite Strips) As directed four times a day cholecalciferol (vitamin D3) 50 mcg PO DAILY hydralazine 100 mg (2 x 50 mg) PO TID hydroxyzine HCl 10 mg PO DAILY PRN [insulin 62 units intradermal .after meals] insulin lispro (Humalog U-100 Insulin) 16 units subcut .before meals magnesium oxide 420 mg PO QDAY PRN pen needle, diabetic (BD Ultra-Fine Yuliana Pen Needle) As directed four times a day tamsulosin mg PO DAILY trospium 20 mg PO BID valsartan 320 mg PO DAILY HPI Comments Details: 69 yr old man with long standing h/o HTN And DM for more than 5 years referred for CKD Creatinine was 1.2 in 2020. Creatinine has bumped up to 1.7 in June Currently on Bumex 0.5mg along with VAlsartan 320 mg 01/02/2024. 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 03/05/24 c/o Itching and rash x 3-4 weeks ;Farxiga was started 6 weeks ago. cr upto 2.98! 04/09/24 Still with itching; Off Farxiga; GAined 4 lbs ; c/o edema 06/11/24 Still has itching Has been taking Hydralazine QD instead of TID Lost 10-14 lbs with Bumex 08/06/24 No improving in Itching PFSH Medical History Diabetes type 2, uncontrolled Essential hypertension Hypertriglyceridemia Hyperlipidemia LDL goal <100 Type 2 diabetes mellitus with diabetic polyneuropathy Cirrhosis of liver GERD (gastroesophageal reflux disease) Tubular adenoma of colon Chronic idiopathic constipation Surgical History History of penile implant History of gastric surgery H/O esophagogastroduodenoscopy Hx of colonoscopy (~10/2014) Family History Father No problems noted. Mother Esophageal cancer Maternal Grandfather Prostate cancer Diabetes Maternal Grandmother CVD (cardiovascular disease) Daughter Tubular adenoma Social History Household Members: Spouse Alcohol intake: current Alcohol intake frequency: former alcohol drinker Patient Tobacco Use Status: Former Tobacco user Physical Exam Vital Signs: Last Vital Signs Pulse 104 H 08/06/24 10:35 BP 158/80 H 08/06/24 10:35 Pulse Ox 98 08/06/24 10:35 Oxygen Delivery Method Room Air 08/06/24 10:35 BMI result Body Mass Index 29.6 Comfortable Neck supple no JVD. Lungs entry equal no rales. Heart S1-S2 heard no gallop or rub. Abdomen soft nontender. Neuro alert awake oriented. No asterixis. Extremities 1 to 2 + edema. Results Reviewed Nephrology Results: Hgb 9.9 g/dl (14.0-18.0) L 06/10/24 WBC 5.3 X10*3/uL (4.8-10.8) 06/10/24 Plt Count 203 X10*3/uL (160-400) 06/10/24 Sodium 135 mmol/L (135-145) 08/05/24 Potassium 4.6 mmol/L (3.3-5.1) 08/05/24 Chloride 108 mmol/L (96-108) 08/05/24 Carbon Dioxide 20 mmol/L (22-29) L 08/05/24 BUN 39 mg/dL (9-16) H 08/05/24 Creatinine 3.24 mg/dL (0.5-1.4) H 08/05/24 Calcium 8.1 mg/dL (8.4-10.2) L 08/05/24 PTH Intact 264.6 pg/mL (8.7-77.1) H 01/16/24 Urine Protein 300 (3+) mg/dL (Neg-Trace) H 06/10/24 Urine Creatinine 45.81 mg/dL 06/10/24 Assessment & Plan Assessment & Plan (1) CKD (chronic kidney disease): Comment: Kidney biopsy on 12/18/2023 revealed nodular mesangial/diabetic glomerulosclerosis. Moderately active interstitial nephritis with eosinophils. Moderate chronic changes including global glomerulosclerosis 35%, tubular atrophy/interstitial fibrosis 30%. Vascular sclerosis moderate with focal hyalinosis. Code(s): N18.9 - Chronic kidney disease, unspecified Category: Medical (2) Essential hypertension: Code(s): I10 - Essential (primary) hypertension Category: Medical (3) Cirrhosis of liver: Comment: 2018 hepatitis a B and C screens negative Code(s): K74.60 - Unspecified cirrhosis of liver Category: Medical (4) Type 2 diabetes mellitus with diabetic polyneuropathy: Code(s): E11.42 - Type 2 diabetes mellitus with diabetic polyneuropathy Category: Medical Plan . 69 yr old man with CKD in a setting of DM and HTN Diabetic nephropathy by biopsy No evidence of obstruction based on recent imaging Will benefit from SGLT-2 inhibitors Added Farxiga 5 mg daily ( dec 2023) On Hold due to itching Since biopsy showed evidence of active interstitial nephritis- stopped omeprazole. Goal is to slow the progression of renal disease Maintain BP < 130/80 and A1c < 7% Avoid nephrotoxins including NSAIDS Superimposed DEMI Probably from hypoperfusion from the addition of NSAIDS/interstitial nephritis AVOID NSAIDS HTN BP sub optimal but better controlled keep Amlodipine 5 mg QD / Keep Valsartan Keep Hydralazine to 100 mg TID Rash- allergic reaction - ? Farxiga HOLD Farxiga Treated with a course of Prednisone - No improvement Rash resolved Hydroxyzine 10 mg PRN- no improvement in itching-Will DC Orders: Orders Complete Blood Count no Diff 4 Weeks N18.9 - Chronic kidney disease, unspecified IRON PROFILE 4 Weeks N18.9 - Chronic kidney disease, unspecified Ferritin 4 Weeks N18.9 - Chronic kidney disease, unspecified Comprehensive Met. Panel 4 Weeks N18.9 - Chronic kidney disease, unspecified Parathyroid Hormone Intact 4 Weeks N18.9 - Chronic kidney disease, unspecified Medications: Discontinued hydroxyzine HCl Discontinued Reason: Doctor's Order 10 mg PO DAILY PRN 30 tabs 1RF itching Coding Level of Care Code Est Pt Level 4 (13406) Diagnoses CKD (chronic kidney disease) N18.9 Essential hypertension I10 Cirrhosis of liver K74.60 Type 2 diabetes mellitus with diabetic polyneuropathy E11.42
--- OUTSIDE RECORDS SUMMARY | 2024-08-06 11:50 | XMS_ITS ---
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-10 - Z79.4) 08/27/2023 Low back pain, unspecified back pain laterality, unspecified chronicity, unspecified whether sciatica present (ICD-10 - M54.50) Plan Of Treatment No Information Progress Notes * [place] SAM FDOB:1955 (68 yo M)Acc No.[id number]:08/27/2023 Patient:?[place] SAM ??External Provider:?Operations Clinical?Resource:Kalli Sotelo :1955???Age:68 Y???Sex:Male Arik e:08/27/2023 Address:[address] [place] [address], [place], [id number] Pcp:Gregor Ruiz Patient's Default Facility:[facility] Subjective: * Chief Complaints: * ???MDS Assessment [...] F33.42 33.?Unilateral primary osteoarthritis, right hip - M16.11?34.?[facility] (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 - Z79.4?35.?Low back pain, unspecified back pain laterality, unspecified chronicity, unspecified whether sciatica present - M54.50? Plan: * Treatment: * Procedure Codes:? Care Plan: * Problems:? * * Sign off status: Completed true * Provider:?Operations Clinical Date:?09/2023 Generated for Kelin chang/Elier/eTransmitting on:?08/06/2024 11:50 AM EDT History and Physical Notes * HPI [...]
--- OUTSIDE RECORDS SUMMARY | 2024-08-06 11:50 | XMS_ITS | Clinical Summary ---
Author Organization [facility] Address [address] [place] [address] Care Team Providers Care Steel Heater Name Role Phone Anel Padgett [facility] Primary Care Provider [phone] Source Comments PLEASE NOTE, if this patient [...] injectionIndicatio ns:Diabetes mellitus type 2 in nonobese ([facility]) Inject w/meals 70-100 NO u 101- 140 2 U, 141-180 3 U, 181-220 4 U, 221-260 6 U, 261-300 8 U, 301-350 10 U,351-400 12 ,>400 callMD 10 mL 5 7 Active insulin needles 31 gauge x 1/4 Indications:Di abetes mellitus type 2 in nonobese ([facility]) DX.E11.65 insulin injection 4 times a day 100 Each 7 Active lancetsIndications :Diabetes mellitus type 2 in nonobese ([facility]) DX E11.65 . Blood sugar check 4 times a day 100 Each [address] Active [address] tabletIndications: Diabetes mellitus type 2 in nonobese ([facility]) Take 1 Tab by mouth once daily 8 Active insulin glargine (LANTUS) 100 unit/mL injectionIndicatio ns:Diabetes mellitus type 2 in nonobese ([facility]) Inject 60 Units into the skin once daily 10 mL 5 8 Active linagliptin (TRADJENTA) 5 mg tabIndications:Ava rigobertoes mellitus type 2 in nonobese ([facility]) Take 1 Tab by mouth once daily 30 Tab 3 8 Active FREESTYLE LITE STRIPS stripsIndications: Diabetes mellitus type 2 in nonobese ([facility]) USE TO TEST BLOOD SUGAR THREE [...] mcg/actuation nasal sprayIndications:N chel[place] congestion Place 1 Snyder in both nostrils once daily for 14 [...] 01/20/2017 Overview (01/20/2017): Colonoscopy done 11/11/14 at [facility] - small hiatus hernia with no evidence of reflux esophagitis , normal colonoscopy Endoscopy also done - DX superficial gastritis Diverticulitis of large intestine 04/05/2015 Overview (04/05/2015): Seen at [facility] 03/25/2015 for abdominal pain for 3 days. Treated with Levaquin,and flagyl . CT Scan : Wall thickening with Inflammatory changes surrounding junction of descending/sigmoid colon. Pt has history of Diverticulitis S/P Partial colon Resection 2-3 years ago. History of Negative Colonoscopy early 2014 at [facility] Facet arthropathy, lumbar 02/03/2015 Overview (02/03/2015): Sees [place] [facility]. X-ray 12/05/2014 L4-L5 facet arthropathy. Undergoing PT. X- Ray hip normal H/O hypogonadism 01/19/2015 Overview (01/19/2015): Sees Urologist S/P TURP 02/25/2014 Overview (07/01/2017): Done 10/21/2013. Sees Urologist Hood Elizondo 05/25/17 - No show to Urology F/U DM type 2 (diabetes mellitus, type 2) ([facility]) 07/28/2013 Overview (09/10/2013): Pt sees Endo at [facility] Hyperlipidemia 07/28/2013 GERD (gastroesophageal reflux disease) 4 DM neuropathy, painful ([facility]) 07/28/2013 Diabetic eye exam ([facility]) 06/27/2013 Overview (06/27/2013): Pt has an eye exam on 06/20/2013, no diabetic retinopathy was detected Folliculitis 06/13/2013 Overview (06/23/2013): Seen in er for boil and sent home on doxycycline on 06/12/2013 HTN (hypertension) 06/13/2013 Active smoker 06/13/2013 Chronic kidney disease Encounters Date Type Department Care Team Description 05/14/2024 9:40 AM EST Office Visit [address] [address] Mary Osborne PA-C Cough, unspecified type (Primary Dx); SOB (shortness of breath); Nasal congestion; Wheezing; Anemia, unspecified type; Diabetes mellitus type 2, insulin dependent ([facility]) 05/14/2024 Travel from Last 3 Months [...] Description 08/11/2024 1:20 PM EDT Office Visit [facility] [address] [place] [id number] Zain Sanchez, PharmD [address] [place] [address] Health Maintenance Due Date Last Done Comments [...] Colonoscopy 06/05/2024 06/05/2014 Colorectal Cancer Screening 06/05/2024 [id number] ( season) 2024 01/23/2024, 01/31/2022, 04/02/2021, Additional [...] 05/14/2024 9:43 AM EST Cough, unspecified type COMPREHENSIVE METABOLIC PANEL Routine 05/06/2024 1:56 PM EST Encounter to establish care Controlled type 2 diabetes mellitus without complication, with long-term current use of insulin ([facility]) Hypertension, unspecified type LIPID PANEL Routine 05/06/2024 1:56 PM EST Encounter to establish care Controlled type 2 diabetes mellitus without complication, with long-term current use of insulin ([facility]) Hypertension, unspecified type MICROALBUMIN/CREATININ E RATIO, URINE, RANDOM Routine 05/06/2024 1:56 PM EST Encounter to establish care Controlled type 2 diabetes mellitus without complication, with long-term current use of insulin ([facility]) HGBA1C W/MPG Routine 05/06/2024 1:56 PM EST Encounter to establish care Controlled type 2 diabetes mellitus without complication, with long-term current use of insulin ([facility]) HEPATITIS A,B,C PANEL Routine 02/27/2017 11:10 AM EST Multiple joint pain from Last 3 Months or Most Recently Relevant to Health Maintenance Results * IMAGING SCANNED DOCUMENT (07/08/2024 3:00 AM EDT) Only the most recent of3 resultswithin the time period is included. 07/08/2024 3:00 AM EDT Anel Padgett DEPUTY CHIEF COUNSEL SCAN IMAGING Final Result * REFERRAL TO [...] DRAW Final R esult Performing Organization Address [facility]/ZIP Co de Phone Number [facility]- BACK OFFICE POCT * INFLUENZA A [...] DRAW Final R esult Performing Organization Address [facility] de Phone Number [facility]- BACK OFFICE POCT * (ABNORMAL) HGBA1C W/MPG (05/06/2024 1:56 PM EST) HEMOGLOBIN A1C 7.4(H) <5.7 % of total Hgb [facility] Comment: For someone without known diabetes, a [...] ?? MEAN PLASMA GLUCOSE 186 mg/dL (calc) [facility] Blood Blood / Unknown 05/06/2024 1 :56 PM EST 05/06/2024 1:56 PM EST Narrative [facility] - 05/08/2024 5:49 PM EST FASTING:NO Mary Osborne PA-C LAB - BLOOD DRAW Edited Res ult - Final [facility] [place] [address] [address], [employer] [address] [address] * (ABNORMAL) MICROALBUMIN/CREATININE RATIO, URINE, RANDOM (05/06/2024 1:56 PM EST) CREATININE, RANDOM URINE 37 20 - 320 mg/dL [employer] [facility] MICROALBUMIN 147.9 mg/dL Morgan Eve[facility] Comment: Verified by repeat analysis. Reference Range Not established MICROALBUMIN/CREA TININE RATIO, RANDOM URINE 3,997(H) <30 mg/g creat Morgan Everett [facility] Comment: The ADA defines abnormalities in [...] PM EST 05/06/2024 1:56 PM EST Narrative [facility] - 05/08/2024 5:49 PM EST FASTING:NO Mary Osborne PA-C LAB - NO BLOOD DRAW Final R esult Performing Organization Address [facility]/State/[facility] Co de Phone Number [facility] [address] [address], [employer] [address] [address] * (ABNORMAL) LIPID PANEL (05/06/2024 1:56 PM EST) CHOLESTEROL, TOTAL 122 <200 mg/dL [employer] [facility] HDL CHOLESTEROL 41 > OR = 40 mg/dL [employer] [facility] TRIGLYCERIDES 174(H) <150 mg/dL [employer] [facility] LDL-CHOLESTEROL 56 99 mg/dL (calc) [employer] [facility] Comment: Reference range: <100 Desirable range <100 mg/dL for primary prevention; ?? <70 mg/dL for patients with CHD or diabetic patients with > or = 2 CHD risk factors. LDL-C is now calculated using the Annalise calculation, which is a validated novel method providing better accuracy than the Friedewald equation in the estimation of LDL-C. Hola PHAN et al. KAUSHIK. 2013;310(19): 7884-3125 (http://education.Inbilin/faq/DZU464) CHOL/HDLC RATIO 3.0 <5.0 (calc) [facility] NON-HDL CHOLESTEROL 81 <130 mg/dL (calc) [facility] Comment: For patients with diabetes plus 1 major ASCVD risk factor, treating to a non-HDL-C goal of <100 mg/dL (LDL-C of <70 mg/dL) is considered a therapeutic option. Blood Blood / Unknown 05/06/2024 1 :56 PM EST 05/06/2024 1:56 PM EST Narrative [facility] - 05/08/2024 5:49 PM EST FASTING:NO Mary Osborne PA-C LAB - BLOOD DRAW Final Resu lt [employer] [address] [address], [employer] [address] [address] * (ABNORMAL) COMPREHENSIVE METABOLIC PANEL (05/06/2024 1:56 PM EST) GLUCOSE 329(H) 65 - 139 mg/dL [employer] [facility] Comment: ?Non-fasting reference interval UREA NITROGEN (BUN) 39(H) 7 - 25 mg/dL [employer] [facility] CREATININE (blood) 2.99(H) 0.70 - 1.35 mg/dL [employer] [facility] EGFR 22(L) > OR = 60 mL/min/1. 73m2 [employer] [facility] BUN/CREATININE RATIO 13 6 - 22 (calc) [employer] [facility] SODIUM 133(L) 135 - 146 mmol/L [employer] [place] [employer] POTASSIUM 4.4 3.5 - 5.3 mmol/L [employer] [facility] [place] [employer] CHLORIDE 101 98 - 110 mmol/L [employer] [place] [employer] CARBON DIOXIDE 22 20 - 32 mmol/L [employer] [facility] [place] [employer] CALCIUM 8.4(L) 8.6 - 10.3 mg/dL [facility] PROTEIN, TOTAL 5.8(L) 6.1 - 8.1 g/dL [facility] ALBUMIN 3.2(L) 3.6 - 5.1 g/dL [facility] GLOBULIN 2.6 1.9 - 3.7 g/dL (calc) [employer] [place] [employer] ALBUMIN/GLOBULI N RATIO 1.2 1.0 - 2.5 (calc) [employer] [facility] [place] [employer] BILIRUBIN, TOTAL 0.3 0.2 - 1.2 mg/dL [employer] [facility] ALKALINE PHOSPHATASE 181(H) 35 - 144 U/L Morgan Everett [facility] AST 25 10 - 35 U/L [employer] [place] [employer] ALT 26 9 - 46 U/L [employer] [facility] [place] [employer] Blood Blood / Unknown 05/06/2024 1 :56 PM EST 05/06/2024 1:56 PM EST Narrative [facility] - 05/08/2024 5:49 PM EST FASTING:NO Mary Osborne PA-C LAB - BLOOD DRAW Edited Res ult - Final [employer] [address] [place] [address], [facility] [address] [place] [phone] * HEPATITIS A,B,C PANEL (02/27/2017 11:10 AM EST) HEPATITIS B SURFACE ANTIBODY NEGATIVE NEGATIVE [facility] HEPATITIS B SURFACE ANTIGEN NEGATIVE NEGATIVE [facility] Comment: Over the counter supplements containing high doses of biotin may interfere with this assay. ??If interference is suspected, patients shoud be retested after refraining from biotin supplements for 72 hours. HEPATITIS C VIRUS DIAGNOSTIC NEGATIVE NEGATIVE [facility] HEPATITIS B CORE ANTIBODY NEGATIVE NEGATIVE [facility] HEPATITIS A ANTIBODY TOTAL NEGATIVE NEGATIVE [facility] Comment: Over the counter supplements containing high doses of biotin may interfere with this assay. ??If interference is suspected, patients shoud be retested after refraining from biotin supplements for 72 hours. Blood specimen (specimen) Blood / Unknown 02/27/2017 11:10 AM EST 02/27/2017 11:33 AM EST Narrative [facility] - 02/27/2017 4:19 PM EST [facility] [address] [place] [address] PT ID [id number] ORD# [id number] Gregor Ruiz DEPUTY CHIEF COUNSEL LAB - BLOOD DRAW Edited Result - Final [facility] [address] [place] [address], from Last 3 Months or Most Recently Relevant to Health Maintenance Insurance [facility] Member Subscriber Plan / Payer (Ef fective 2021-Present) Name:Modesto Rogers Relation to Subscriber:Self Name:Modesto Rogers Payer ID:[id number] Group ID:Not on file Type:Indemnity Address: [facility] [address] [address] Care Teams Steel Heater Relationship Specialty Start Date End Date Anel Padgett FNP [facility] [place] [address] PCP - General Internal Medicine 09/05/21
--- OUTSIDE RECORDS SUMMARY | 2024-08-06 11:50 | XMS_ITS | Patient Health Record ---
Author Organization [facility] [place] [address] Care Team Providers Care Airdox Fitter Name Role Phone Gregor Ruiz Primary Care Provider Unavailabl e Clinical, Operations Unavailable Unavailable Kathya Herrera Unavailable [phone] Allergies Allergen (clinical drug ingredient) Drug/Non Drug [...] Problem Status W/U Status Risk Notes Problem 5105488722 Personal history of nicotine dependence (Z87.891) Active confirmed Problem 151431224 Tinea unguium (B35.1) Active confirmed Problem 412571791 Overweight (E66.3) Active confirmed Problem 3789442 Tachycardia, unspecified (R00.0) Active confirmed Problem 70915843 Abdominal pain, unspecified site (R10.9) Active confirmed Problem 985425832435238 Trigger thumb, l eft thumb (M65.312) Active confirmed Problem 549497364661101 Pain in left christina t (M79.672) Active confirmed Problem 166251474873140 Bursitis of left shoulder (M75.52) Active confirmed Problem 261072829 Spondylosis with out myelopathy or radiculopathy, lumbar region (M47.816) Active confirmed Problem 305257103 Dorsalgia, unspecified (M54.9) Active confirmed Problem 028491194727270 Pain in right fo ot (M79.671) Active confirmed Problem 22303073 Folliculitis (L73.9) Active confirmed Problem 959519890 Facet arthropath y, lumbar (M47.816) Active confirmed Problem 69761254 Cigarette nicoti ne dependence without complication (F17.210) Active confirmed Problem 23824951 Major depressive disorder, recurrent, in full remission (F33.42) Active confirmed Problem 05190435 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) Active confirmed Problem 146776567986841 Unilateral prima ry osteoarthritis, right hip (M16.11) Active confirmed Problem 30133746 Other intervertebral disc degeneration, lumbar region (M51.36) Active confirmed Problem 806912956 Nocturia (R35.1) Active confirmed Problem 787109633 Gastroesophageal reflux disease without esophagitis (K21.9) Active confirmed Problem 439409613 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) Active confirmed Problem 799072413429176 Hypertensive chronic kidney disease with stage 1 through stage 4 chronic kidney disease, or unspecified chronic kidney disease (I12.9) Active confirmed Problem 661855183 Erectile dysfunction, unspecified erectile dysfunction type (N52.9) Active confirmed Problem 584494431 S/P TURP (Z90.79) Active confirmed Problem 60944224 Primary hypertension (I10) Active confirmed Problem 01687413 Hyperlipidemia, unspecified hyperlipidemia type (E78.5) Active confirmed Problem 9322744968 Left shoulder pa in, unspecified chronicity (M25.512) Active confirmed Problem 818661144 Type 2 diabetes mellitus without complication, without long-term current use of insulin (E11.9) Active confirmed Problem 22891184 Type 2 diabetes mellitus with diabetic neuropathy, without long-term current use of insulin (E11.40) Active confirmed Problem 08776560 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) Active confirmed Problem 972072838 Secondary catara ct of both eyes, unspecified secondary cataract type (H26.40) Active confirmed Problem 713411600 Benign prostatic hyperplasia with lower urinary tract symptoms, symptom details unspecified (N40.1) Active confirmed Problem 72064452 Glaucoma, unspecified glaucoma type, unspecified laterality (H40.9) Active confirmed Problem 8074834 Diverticulitis o f large intestine, unspecified bleeding status, unspecified complication status (K57.32) Active confirmed Problem 49831321 Hepatic cirrhosi s, unspecified hepatic cirrhosis type, unspecified whether ascites present (K74.60) Active confirmed Problem 482587219 Low back pain, unspecified back pain laterality, unspecified chronicity, unspecified whether sciatica present (M54.50) Active confirmed Problem 066692567 H/O hypogonadism (Z86.39) Active confirmed Encounters Encounter Location Date Provider Diagnosis [address] [address] 03/10/2024 Operations Clinical Folliculitis L73.9 ; Primary [...] Unilateral primary osteoarthritis, right hip M16.11 ; detention (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 Z79.4 ; Low back pain, unspecified back pain laterality, unspecified chronicity, unspecified whether sciatica present M54.50 ; Hypertensive chronic kidney disease with stage 1 through stage 4 chronic kidney disease, or unspecified chronic kidney disease I12.9 and Tachycardia, unspecified R00.[address] [address] 08/27/2023 Operations Clinical Folliculitis L73.9 ; Primary [...] Unilateral primary osteoarthritis, right hip M16.11 ; intermodal truck driver (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 Z79.4 and Low back pain, unspecified back pain laterality, unspecified chronicity, unspecified whether sciatica present M54.50 Assessments Encounter Date Diagnosis (ICD Code) Assessment Notes Treatment Notes Treatment Clinical Notes Section Notes 08/27/2023 Folliculitis (ICD-10 - L73.9) 03/10/2024 Folliculitis (ICD-10 - L73.9) Problem list updated using [employer] 08/27/2023 Primary hypertension (ICD-10 - I10) 03/10/2024 Primary hypertension (ICD-10 - I10) Problem list updated using [employer] 08/27/2023 Cigarette nicotine dependence without complication (ICD-10 - F17.210) 03/10/2024 Cigarette nicotine dependence without complication (ICD-10 - F17.210) Problem list updated using [employer] 08/27/2023 Type 2 diabetes mellitus without complication, without long-term current use of insulin (ICD-10 - E11.9) 03/10/2024 Type 2 diabetes mellitus without complication, without long-term current use of insulin (ICD-10 - E11.9) Problem list updated using [employer] 03/10/2024 Hyperlipidemia, unspecified hyperlipidemia type (ICD-10 - E78.5) Problem list updated using [employer] 08/27/2023 Hyperlipidemia, unspecified hyperlipidemia type (ICD-10 - E78.5) 08/27/2023 Gastroesophageal reflux disease without esophagitis (ICD-10 - K21.9) 03/10/2024 Gastroesophageal reflux disease without esophagitis (ICD-10 - K21.9) Problem list updated using [employer] 03/10/2024 Type 2 diabetes mellitus with diabetic neuropathy, without long-term current use of insulin (ICD-10 - E11.40) Problem list updated using [employer] 08/27/2023 Type 2 diabetes mellitus with diabetic neuropathy, without long-term current use of insulin (ICD-10 - E11.40) 08/27/2023 S/P TURP (ICD-10 - Z90.79) 03/10/2024 S/P TURP (ICD-10 - Z90.79) Problem list updated using [employer] 03/10/2024 H/O hypogonadism (ICD-10 - Z86.39) Problem list updated using [employer] 08/27/2023 H/O hypogonadism (ICD-10 - Z86.39) 03/10/2024 Facet [...] - M54.9) Problem list updated using [employer] 08/27/2023 Chronic idiopathic constipation (ICD-10 - K59.04) 03/10/2024 Chronic idiopathic constipation (ICD-10 - K59.04) Problem list updated using [employer] 08/27/2023 Pain in right foot (ICD-10 - M79.671) 03/10/2024 Pain in right foot (ICD-10 - M79.671) Problem list updated using [employer] 08/27/2023 Pain in left foot (ICD-10 - M79.672) 03/10/2024 Pain in left foot (ICD-10 - M79.672) Problem list updated using [employer] 08/27/2023 Tinea unguium (ICD-10 - B35.1) 03/10/2024 Tinea unguium (ICD-10 - B35.1) Problem list updated using [employer] 08/27/2023 Hepatic cirrhosis, unspecified hepatic cirrhosis type, unspecified whether ascites present (ICD-10 - K74.60) 03/10/2024 Hepatic cirrhosis, unspecified hepatic cirrhosis type, unspecified whether ascites present (ICD-10 - K74.60) Problem list updated using [employer] 08/27/2023 Cholesterolosis of gallbladder (ICD-10 - K82.4) 03/10/2024 Cholesterolosis of gallbladder (ICD-10 - K82.4) Problem list updated using [employer] 03/10/2024 Abdominal pain, unspecified site (ICD-10 - R10.9) Problem list updated using [employer] 08/27/2023 Abdominal pain, unspecified site (ICD-10 - R10.9) 08/27/2023 Trigger thumb, left thumb (ICD-10 - M65.312) 03/10/2024 Trigger thumb, left thumb (ICD-10 - M65.312) Problem list updated using [employer] 08/27/2023 Benign prostatic hyperplasia with lower urinary tract symptoms, symptom details unspecified (ICD-10 - N40.1) 03/10/2024 Benign prostatic hyperplasia with lower urinary tract symptoms, symptom details unspecified (ICD-10 - N40.1) Problem list updated using [employer] 03/10/2024 Erectile dysfunction, unspecified erectile dysfunction type (ICD-10 - N52.9) Problem list updated using [employer] 08/27/2023 Erectile dysfunction, unspecified erectile dysfunction type (ICD-10 - N52.9) 08/27/2023 Nocturia (ICD-10 - R35.1) 03/10/2024 Nocturia (ICD-10 - R35.1) Problem list updated using [employer] 08/27/2023 Personal history of nicotine dependence (ICD-10 [...] - M16.11) Problem list updated using [employer] 08/27/2023 Unilateral primary osteoarthritis, right hip (ICD-10 - M16.11) 08/27/2023 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
--- OUTSIDE RECORDS SUMMARY | 2024-08-06 11:51 | XMS_ITS ---
Author Organization [facility] liance Address [address] [place] [address] Care Team Providers Care Pension Examiner Name Role Phone Gregor Ruiz Primary [...] Problem Status W/U Status Risk Notes Problem [id number] Hypertensive chronic kidney disease with stage 1 through stage 4 chronic kidney disease, or unspecified chronic kidney disease (I12.9) Active confirmed Problem 5450403 Tachycardia, unspecified (R00.0) Active confirmed Encounters Encounter Location Date Provider Diagnosis [address] [address] 03/10/2024 Operations Clinical Folliculitis L73.9 ; Primary [...] Unilateral primary osteoarthritis, right hip M16.11 ; 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 Z79.4 ; Low [...] M16.11) Problem list updated using [employer] 03/10/2024 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 (ICD-10 - Z79.4) [...] * Modesto SAM FDOB:1955 (68 yo M)Acc No.[id number]:03/10/2024 Patient:?Modesto SAM F ??External Provider:?Operations Clinical?Resource:Chin Marinelli :1955???Age:68 Y???Sex:Male Arik e:03/10/2024 Address:[address] [id number] Pcp:Gregor Ruiz Patient's Default Facility:[facility] Subjective: * Chief Complaints: * [...] F33.42 33.?Unilateral primary osteoarthritis, right hip - M16.11?34.?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 Problem list updated using [employer]. Plan: * Treatment: * Procedure Codes:? Care Plan: * Problems:? * * Sign off status: Completed true * Provider:?Operations Clinical Date:?02/21 Generated for Kelin chang/Elier/Radhaitting on:?08/06/2024 11:50 AM EDT History and Physical [...]
--- OUTSIDE RECORDS SUMMARY | 2024-08-06 11:51 | XMS_ITS | Clinical Summary ---
Author Organization 175 [facility] Address [address] [place] [address] Phone Care Team Providers Care Area Field Worker Name Role Phone Anel chang JUD Primary Care Provider [phone] Allergies Active Allergy Reactions Criticality Noted Date [...] total) by mouth. 03/28/20 24 Active cloNIDine ([id number]) 0.2 mg/[address] on the skin. [...] - 07/08/2024 11:59 PM EDT Hospital Encounter [facility] MRI [address] [place] [address] Arm weakness Discharge Disposition: Home or Self Care 06/27/2024 11:15 AM EST Office Visit Orthopedic Surgery [facility] [address] [address] Anabelle Koehler PA Arm weakness (Primary Dx) 06/25/2024 10:37 AM EST - 06/25/2024 11:59 PM EST Hospital Encounter [facility] MRI [address] [place] [address] Acute pain of right shoulder; Arm weakness Discharge Disposition: Home or Self Care 06/17/2024 1:45 PM EST Office Visit Orthopedic Surgery [facility] [address] [address] Anabelle Koehler PA Acute pain of right shoulder (Primary Dx); Arm weakness from Last 3 Months Immunizations Name Administration [...] Description 08/08/2024 1:30 PM EDT Consult Neurosurgery [place] [facility] [address] [place] [address] Jaxon Anne PA 175 [facility] [address] [place] [address] 08/11/2024 12:30 PM EDT Appointment [facility] Neurodiagnostic [address] [place] [phone] Health Maintenance Due Date Last Done Comments [...] Routine 06/17/2024 2:09 PM EST Neck pain from Last 3 Months Results * MR [...] Signed Date: 07/08/2024 15:11 ET Workstation ID: [id number] Transcribed By: Self Edit Transcribed Date: 07/08/2024 [...] facet arthritis, most pronounced at C3-4 and C7-M5zpeuizpvemh. 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 us Anabelle SUBRAMANIAN IMG XR PROCEDURES Final Resul t from Last 3 Months Insurance [employer] MEDICARE Member Subscriber Plan / Payer (Ef fective 2021-Present) Name:Modesto Rogers Relation to Subscriber:Self Name:Modesto Rogers Payer ID:[id number] Group ID:[id number] Type:Not on file Address: [address] [facility] [place] [address] Care Teams Area Field Worker Relationship Specialty Start Date End Date Anel Padgett NP [address] [place] [address] PCP - General Nurse Practitioner 05/07/24
--- OUTSIDE RECORDS SUMMARY | 2024-08-06 11:51 | XMS_ITS ---
Author Organization [facility] Address [address] [place] [address] Care Team Providers Care Jig Grinder Set Up Operator Name Role Phone Greogr Ruiz Primary Care Provider Kathya Arceo Unavailable [phone] Allergies Allergen (clinical drug ingredient) Drug/Non Drug [...] Not-Taking Encounters Encounter Location Date Provider Diagnosis [place] [id number] [address] 08/15/2023 [place] Folliculitis L73.9 ; Primary hypertension I10 [...] Unilateral primary osteoarthritis, right hip M16.11 ; legal instructor (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 Z79.4 and Low [...] * Modesto SAM FDOB:1955 (69 yo M)Acc No.[id number]:08/15/2023 Patient:?Modesto SAM F ??External Provider:?Kathya Herrera :1955???Age:68 Y???Sex:Male Arik e:08/15/2023 Address:[address], [place], [id number] Pcp:Gregor Ruiz Patient's Default Facility:[facility] Subjective: * Chief Complaints: * [...] - F33.42???33.?Unilateral primary osteoarthritis, right hip - M16.11???34.?legal instructor (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 - Z79.4???35.?Low back [...] Herrera Date:? 4 Generated for Kelin chang/Elier/eTransmitting on:?08/06/2024 11:51 AM EDT History and Physical Notes * [...] including all confidentiality protections under the law. [facility]'s virtual care platforms are HIPAA compliant and meet other (federal and state) privacy and security laws. Even though your communications with [facility] are private and secure, there is always some risk with any information that is transmitted through the internet.
== END 2024-08-06 10:49 | disposition home or self-care (01) ==
LOC: HO.HKAS 10:14
PROVIDERS: PCP Physician Assistant Medical; Visit Provider Internal Medicine Hypertension Specialist
DX: I12.9 Hypertensive chronic kidney disease with stage 1 through stage 4 chronic kidney disease, or unspecified chronic kidney disease (principal); E11.22 Type 2 diabetes mellitus with diabetic chronic kidney disease; N18.9 Chronic kidney disease, unspecified; K74.60 Unspecified cirrhosis of liver; E11.42 Type 2 diabetes mellitus with diabetic polyneuropathy
CPT/HCPCS: 99214

== ENCOUNTER → 2024-08-06 10:13 | Outpatient (BNVA) | payer OTHER, SELFPAY | PROVIDERS: PCP Physician Assistant Medical; Visit Provider Internal Medicine Hypertension Specialist | DX: E11.22 Type 2 diabetes mellitus with diabetic chronic kidney disease (principal); I12.9 Hypertensive chronic kidney disease with stage 1 through stage 4 chronic kidney disease, or unspecified chronic kidney disease; N18.9 Chronic kidney disease, unspecified; E11.42 Type 2 diabetes mellitus with diabetic polyneuropathy; K74.60 Unspecified cirrhosis of liver | CPT/HCPCS: 99212 ==

== ENCOUNTER 2024-09-02 10:43 | Outpatient (REF) | payer OTHER, SELFPAY ==
--- OUTSIDE RECORDS SUMMARY | 2024-09-02 11:59 | XMS_ITS ---
Author Organization [facility] Address [address] [place] [address] Care Team Providers Care Manager Student Services Name Role Phone Gregor Ruiz Primary Care [...] Active Encounters Encounter Location Date Provider Diagnosis [place] [id number] [address] 08/27/2023 [facility] Folliculitis L73.9 ; Primary [...] Unilateral primary osteoarthritis, right hip M16.11 ; retirement (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 Z79.4 and Low [...] osteoarthritis, right hip (ICD-10 - M16.11) 08/27/2023 retirement (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 (ICD-10 - Z79.4) 08/27/2023 Low back pain, unspecified back pain laterality, unspecified chronicity, unspecified whether sciatica present (ICD-10 - M54.50) Plan Of Treatment No Information Progress Notes * Modesto SAM FDOB:1955 (68 yo M)Acc No.[id number]:08/27/2023 Patient:?Modesto SAM ??External Provider:?Operations Clinical?Resource:Kalli Sotelo :1955???Age:68 Y???Sex:Male Arik e:08/27/2023 Address:[address] [place] [address], [place], [id number] Pcp:Gregor Ruiz Patient's Default Facility: Subjective: * Chief Complaints: * ???MDS Assessment [...] F33.42 33.?Unilateral primary osteoarthritis, right hip - M16.11?34.?retirement (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 - Z79.4?35.?Low back pain, unspecified back pain laterality, unspecified chronicity, unspecified whether sciatica present - M54.50? Plan: * Treatment: * Procedure Codes:? Care Plan: * Problems:? * * Sign off status: Completed true * Provider:?Operations Clinical Date:?09/2023 Generated for Kelin chang/Elier/eTransmitting on:?09/02/2024 11:59 AM EDT History and Physical Notes * [...]
--- OUTSIDE RECORDS SUMMARY | 2024-09-02 12:00 | XMS_ITS ---
Author Organization [facility] Address [address] [place] [address] Care Team Providers Care Associate Agent Insurance Sales Name Role Phone Gregor Ruiz Primary Care [...] Problem Status W/U Status Risk Notes Problem [id number] Hypertensive chronic kidney disease with stage 1 through stage 4 chronic kidney disease, or unspecified chronic kidney disease (I12.9) Active confirmed Problem [id number] Tachycardia, unspecified (R00.0) Active confirmed Encounters Encounter Location Date Provider Diagnosis [address] [address] 03/10/2024 [facility] Folliculitis L73.9 ; Primary [...] Unilateral primary osteoarthritis, right hip M16.11 ; alf (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 Z79.4 ; Low [...] M16.11) Problem list updated using [employer] 03/10/2024 intermediate teacher (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 (ICD-10 - Z79.4) [...] * Modesto SAM FDOB:1955 (68 yo M)Acc No.[id number]:03/10/2024 Patient:?Modesto SAM F ??External Provider:?Operations Clinical?Resource:Chin Marinelli :1955???Age:68 Y???Sex:Male Arik e:03/10/2024 Address:[address] [id number] Pcp:Gregor Ruiz Patient's Default Facility:[facility] Subjective: * Chief Complaints: * ???MDS Assessment [...] F33.42 33.?Unilateral primary osteoarthritis, right hip - M16.11?34.?alf (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 - Z79.4?35.?Low back pain, unspecified back pain laterality, unspecified chronicity, unspecified whether sciatica present - M54.50?36.?Hypertensive chronic kidney disease with stage 1 through stage 4 chronic kidney disease, or unspecified chronic kidney disease - I12.9?37.?Tachycardia, unspecified - R00.0? Problem list updated using [employer]. Plan: * Treatment: * Procedure Codes:? Care Plan: * Problems:? * * Sign off status: Completed true * Provider:?Operations Clinical Date:?02/21 Generated for Kelin chang/Elier/Radhaitting on:?09/02/2024 11:59 AM EDT History and Physical [...]
--- OUTSIDE RECORDS SUMMARY | 2024-09-02 12:00 | XMS_ITS | Clinical Summary ---
Author Organization [facility] Address [address] [place] [address] Care Team Providers Care Applied Psychology Chair Name Role Phone Anel Padgett [facility] Primary Care Provider [phone] Source Comments PLEASE NOTE, if this patient [...] injectionIndicatio ns:Diabetes mellitus type 2 in nonobese ([facility]) Inject w/meals 70-100 NO u 101- 140 2 U, 141-180 3 U, 181-220 4 U, 221-260 6 U, 261-300 8 U, 301-350 10 U,351-400 12 ,>400 callMD 10 mL 5 7 Active insulin needles 31 gauge x 1/4 Indications:Di abetes mellitus type 2 in nonobese ([facility]) DX.E11.65 insulin injection 4 times a day 100 Each 7 Active lancetsIndications :Diabetes mellitus type 2 in nonobese ([facility]) DX E11.65 . Blood sugar check 4 times a day 100 Each 7 Active [address] tabletIndications: Diabetes mellitus type 2 in nonobese ([facility]) Take 1 Tab by mouth once daily 8 Active insulin glargine (LANTUS) 100 unit/mL injectionIndicatio ns:Diabetes mellitus type 2 in nonobese ([facility]) Inject 60 Units into the skin once daily 10 mL 5 8 Active linagliptin (TRADJENTA) 5 mg tabIndications:Ava rigobertoes mellitus type 2 in nonobese ([facility]) Take 1 Tab by mouth once daily 30 Tab 3 8 Active FREESTYLE LITE STRIPS stripsIndications: Diabetes mellitus type 2 in nonobese ([facility]) USE TO TEST BLOOD SUGAR THREE TIMES [...] mcg/actuation nasal sprayIndications:N chel[place] congestion Place 1 Geronimo in both nostrils once daily for 14 [...] 01/20/2017 Overview (01/20/2017): Colonoscopy done 11/11/14 at [facility] - small hiatus hernia with no evidence of reflux esophagitis , normal colonoscopy Endoscopy also done - DX superficial gastritis Diverticulitis of large intestine 04/05/2015 Overview (04/05/2015): Seen at [facility] 03/25/2015 for abdominal pain for 3 days. Treated with Levaquin,and flagyl . CT Scan : Wall thickening with Inflammatory changes surrounding junction of descending/sigmoid colon. Pt has history of Diverticulitis S/P Partial colon Resection 2-3 years ago. History of Negative Colonoscopy early 2014 at [facility] Facet arthropathy, lumbar 02/03/2015 Overview (02/03/2015): Sees [place] [facility]. X-ray 12/05/2014 L4-L5 facet arthropathy. Undergoing PT. X- Ray hip normal H/O hypogonadism 01/19/2015 Overview (01/19/2015): Sees Urologist S/P TURP 02/25/2014 Overview (07/01/2017): Done 10/21/2013. Sees Urologist [facility] 05/25/17 - No show to Urology F/U DM type 2 (diabetes mellitus, type 2) ([facility]) 07/28/2013 Overview (09/10/2013): Pt sees Endo at [facility] Hyperlipidemia 07/28/2013 GERD (gastroesophageal reflux disease) 4 DM neuropathy, painful ([facility]) 07/28/2013 Diabetic eye exam ([facility]) 06/27/2013 Overview (06/27/2013): Pt has an eye exam on 06/20/2013, no diabetic retinopathy was detected Folliculitis 06/13/2013 Overview (06/23/2013): Seen in er for boil and sent home on doxycycline on 06/12/2013 HTN (hypertension) 06/13/2013 Active smoker 06/13/2013 Chronic kidney disease Immunizations Immunization Administration Dates Next Due DTAP, UNSPECIFIED 11/25/2010 Flu, Adjuvant, 65y+ (Fluad) 01/15/2023, 2 Flu, Preservative Free 01/17/2021,01/07/2020,08/2018 INFLUENZA, SEASONAL, INJECTABLE 01/23/2018,02/14 INFLUENZA, UNSPECIFIED 02/01/2016,2014,01/14/2014,01/02,01/10/2012,02/23/2011,01/17/2011 ,01/21/2010,01/22/2009,01/28/2008,1012/2006,03/14/2006,02/28/2005, 4,03/16/2003 Influenza (FLUZONE), high-do se, trivalent, PF 01/23/2024 MMR (MMR II/Priorix) 03/24/1996 MODERNA COVID-19 VACCINE BIV ALENT, BLUE CAP, 6M+ 01/31/2022 Moderna COVID-19 Vaccine, re d cap blue label, 12+ Primary Series 04/02/2021 PFIZER COVID VACCINE, PURPLE CAP, 12+ 07/20/2020 ,06/29/2020 PNEUMOCOCCAL CONJUGATE PCV 2 0 (Prevnar) 07/27/2022 PNEUMOCOCCAL POLYSACCHARIDE PPV23 (Pneumovax 23) 07/22/2021,12/07/2016,09/30/2014 PNEUMOCOCCAL, UNSPECIFIED FORMULATION 03/14/2006 PPD 09/30/2014 RSV [...] 05/14/2024 9:18 AM EST Plan of Treatment Health Maintenance Due Date Last Done Comments [...] 2021 Imm-Zoster, Recombinant (3 of 3) 04/25/2023 02/29/20, 08/08/2017 Colonoscopy 06/05/2024 06/05/2014 Colorectal Cancer Screening 06/05/2024 [id number] ( season) 2024 01/23/2024, 01/31/2022, 04/02/2021, Additional [...] Procedure Name Priority Date/Time Associated Diagnosis Comments HEALTH HISTORY SCANNED DOCUMENT 08/11/2024 3:00 AM EDT REFERRAL SCANNED DOCUMENT 08/08/2024 3:00 AM EDT IMAGING SCANNED DOCUMENT 07/08/2024 3:00 AM EDT REFERRAL TO ORTHOPEDICS Routine 06/27/2024 3:00 AM EST Acute pain of right shoulder Deformity of clavicle Calcification of soft tissue IMAGING SCANNED DOCUMENT 06/25/2024 3:00 AM EST IMAGING SCANNED DOCUMENT 06/17/2024 3:00 AM EST COMPREHENSIVE METABOLIC PANEL Routine 05/06/2024 1:56 PM EST Encounter to establish care Controlled type 2 diabetes mellitus without complication, with long-term current use of insulin ([facility]) Hypertension, unspecified type LIPID PANEL Routine 05/06/2024 1:56 PM EST Encounter to establish care Controlled type 2 diabetes mellitus without complication, with long-term current use of insulin ([facility]) Hypertension, unspecified type MICROALBUMIN/CREATININ E RATIO, URINE, RANDOM Routine 05/06/2024 1:56 PM EST Encounter to establish care Controlled type 2 diabetes mellitus without complication, with long-term current use of insulin ([facility]) HGBA1C W/MPG Routine 05/06/2024 1:56 PM EST Encounter to establish care Controlled type 2 diabetes mellitus without complication, with long-term current use of insulin ([facility]) HEPATITIS A,B,C PANEL Routine 02/27/2017 11:10 AM EST Multiple joint pain from Last 3 Months or Most Recently Relevant to Health Maintenance Results * HEALTH HISTORY SCANNED DOCUMENT (08/11/2024 3:00 AM EDT) 08/11/2024 3:00 AM EDT [facility] Provider Default SCAN OTHER ORDERS Final Re sult * REFERRAL SCANNED DOCUMENT (08/08/2024 3:00 AM EDT) 08/08/2024 3:00 AM EDT [facility] JUSTICE PROFESSOR SCAN REFERRAL Final Result * IMAGING SCANNED DOCUMENT (07/08/2024 3:00 AM EDT) Only the most recent of3 resultswithin the time period is included. 07/08/2024 3:00 AM EDT Anel Gurung JUSTICE PROFESSOR SCAN IMAGING Final Result * REFERRAL TO ORTHOPEDICS (06/27/2024 3:00 AM EST) 06/27/2024 3:00 AM EST Mary Osborne PA-C REFERRAL Edited Resu lt - Final * (ABNORMAL) HGBA1C W/MPG (05/06/2024 1:56 PM EST) HEMOGLOBIN A1C 7.4(H) <5.7 % of total Hgb [facility] Comment: For someone without known diabetes, a [...] ?? MEAN PLASMA GLUCOSE 186 mg/dL (calc) [facility] Blood Blood / Unknown 05/06/2024 1 :56 PM EST 05/06/2024 1:56 PM EST Narrative [employer] [facility] - 05/08/2024 5:49 PM EST FASTING:NO us Mary Osborne PA-C LAB - BLOOD DRAW Edited Res ult - Final Performing Organization Address [facility] Co de Phone Number [employer] [address] [place] [address], [place] [address] [address] * (ABNORMAL) MICROALBUMIN/CREATININE RATIO, URINE, RANDOM (05/06/2024 1:56 PM EST) CREATININE, RANDOM URINE 37 20 - 320 mg/dL [facility] MICROALBUMIN 147.9 mg/dL [facility] Comment: Verified by repeat analysis. Reference Range Not established MICROALBUMIN/CREA TININE RATIO, RANDOM URINE 3,997(H) <30 mg/g creat [facility] Comment: The ADA defines abnormalities in albumin [...] PM EST 05/06/2024 1:56 PM EST Narrative [employer] - 05/08/2024 5:49 PM EST FASTING:NO us Mary Osborne PA-C LAB - NO BLOOD DRAW Final R esult Performing Organization Address [facility] Co de Phone Number [employer] [address] [place] [address], [employer] [address] [address] * (ABNORMAL) LIPID PANEL (05/06/2024 1:56 PM EST) CHOLESTEROL, TOTAL 122 <200 mg/dL [employer] [facility] HDL CHOLESTEROL 41 > OR = 40 mg/dL [employer] [facility] TRIGLYCERIDES 174(H) <150 mg/dL [employer] [facility] LDL-CHOLESTEROL 56 99 mg/dL (calc) [employer] [facility] Comment: Reference range: <100 Desirable range <100 mg/dL for primary prevention; ?? <70 mg/dL for patients with CHD or diabetic patients with > or = 2 CHD risk factors. LDL-C is now calculated using the Annalise calculation, which is a validated novel method providing better accuracy than the Friedewald equation in the estimation of LDL-C. Hola SS et al. KAUSHIK. 2013;310(19): 4357-7483 (http://education.[employer]/faq/CLV745) CHOL/HDLC RATIO 3.0 <5.0 (calc) [employer] NON-HDL CHOLESTEROL 81 <130 mg/dL (calc) [employer] [facility] Comment: For patients with diabetes plus 1 major ASCVD risk factor, treating to a non-HDL-C goal of <100 mg/dL (LDL-C of <70 mg/dL) is considered a therapeutic option. Blood Blood / Unknown 05/06/2024 1 :56 PM EST 05/06/2024 1:56 PM EST Narrative [employer] [facility] - 05/08/2024 5:49 PM EST FASTING:NO Mary Osborne PA-C LAB - BLOOD DRAW Final Resu lt [employer] [facility] [address] [address], [employer] [facility] [address] [place] [address] * (ABNORMAL) COMPREHENSIVE METABOLIC PANEL (05/06/2024 1:56 PM EST) GLUCOSE 329(H) 65 - 139 mg/dL [employer] [facility] Comment: ?Non-fasting reference interval UREA NITROGEN (BUN) 39(H) 7 - 25 mg/dL [employer] [facility] CREATININE (blood) 2.99(H) 0.70 - 1.35 mg/dL [employer] [facility] EGFR 22(L) > OR = 60 mL/min/1. 73m2 [employer] [facility] BUN/CREATININE RATIO 13 6 - 22 (calc) [employer] [facility] SODIUM 133(L) 135 - 146 mmol/L [employer] [facility] POTASSIUM 4.4 3.5 - 5.3 mmol/L [employer] [facility] CHLORIDE 101 98 - 110 mmol/L [employer] [facility] CARBON DIOXIDE 22 20 - 32 mmol/L [employer] [facility] CALCIUM 8.4(L) 8.6 - 10.3 mg/dL [employer] [facility] PROTEIN, TOTAL 5.8(L) 6.1 - 8.1 g/dL [employer] [facility] ALBUMIN 3.2(L) 3.6 - 5.1 g/dL [employer] [facility] GLOBULIN 2.6 1.9 - 3.7 g/dL (calc) [employer] ALBUMIN/GLOBULI N RATIO 1.2 1.0 - 2.5 (calc) [employer] BILIRUBIN, TOTAL 0.3 0.2 - 1.2 mg/dL [employer] ALKALINE PHOSPHATASE 181(H) 35 - 144 U/L [employer] [facility] AST 25 10 - 35 U/L [employer] [facility] ALT 26 9 - 46 U/L [employer] [facility] Blood Blood / Unknown 05/06/2024 1 :56 PM EST 05/06/2024 1:56 PM EST Narrative [employer] [facility] - 05/08/2024 5:49 PM EST FASTING:NO us Mary Osborne PA-C LAB - BLOOD DRAW Edited Res ult - Final [employer] [address] [address], [employer] [address] [address] * HEPATITIS A,B,C PANEL (02/27/2017 11:10 AM EST) HEPATITIS B SURFACE ANTIBODY NEGATIVE NEGATIVE [facility] HEPATITIS B SURFACE ANTIGEN NEGATIVE NEGATIVE [facility] Comment: Over the counter supplements containing high doses of biotin may interfere with this assay. ??If interference is suspected, patients shoud be retested after refraining from biotin supplements for 72 hours. HEPATITIS C VIRUS DIAGNOSTIC NEGATIVE NEGATIVE [facility] HEPATITIS B CORE ANTIBODY NEGATIVE NEGATIVE [facility] HEPATITIS A ANTIBODY TOTAL NEGATIVE NEGATIVE [facility] Comment: Over the counter supplements containing high doses of biotin may interfere with this assay. ??If interference is suspected, patients shoud be retested after refraining from biotin supplements for 72 hours. Blood specimen (specimen) Blood / Unknown 02/27/2017 11:10 AM EST 02/27/2017 11:33 AM EST Narrative [facility] - 02/27/2017 4:19 PM EST [facility] [employer] [address] [place] [address] PT ID [id number] ORD# [id number] Gregor GRIFFITH LAB - BLOOD DRAW Edited Result - Final [facility] [address] [place] [address], from Last 3 Months or Most Recently Relevant to Health Maintenance Insurance [facility] DENTAL [facility] SAFETY NET DENTAL PARTNER[employer]IP [facility] Member Subscriber Plan / Payer (Ef fective 2021-Present) Name:Modesto Rogers Relation to Subscriber:Self Name:Modesto Rogers Payer ID:[id number] Group ID:Not on file Type:Indemnity Address: [address] [place] [address] Care Teams Applied Psychology Chair Relationship Specialty Start Date End Date Anel Padgett FNP [address] [place] [id number] PCP - General Internal Medicine 09/05/21
--- OUTSIDE RECORDS SUMMARY | 2024-09-02 12:00 | XMS_ITS | Patient Health Record ---
Author Organization [facility] [place] [address] Care Team Providers Care Bpo Specialist Name Role Phone Gregor Ruiz Primary Care Provider Unavailabl e Clinical, Operations Unavailable Unavailable Arielel Hurtado Unavailable [phone] Allergies Allergen (clinical drug ingredient) Drug/Non Drug Allergy documented on EMR Reaction Allergy Type Onset Date Status lisinopril Lisinopril Unknown Drug Allergy Activ e Reason For Referral No Information Medications Medication SIG (Take, Route, Frequency, Duration) Notes Start Date End Date Status amLODIPine Besylate 5 MG 1 tablet Orally Once a day states was d/c Not-Taking Vitamin D 50 MCG (1999) 1 tablet Oral ly Once a day Active Centrum Adults - as directed Orally Duplicate Not-Taking Aspirin 81 81 MG 1 tablet Orally Once a day Member reports not using anymore Not-Taking hydroCHLOROthiazide 12.5 MG 1 capsule in the morning Orally Once a day Taking Valsartan Not-Taking Dicyclomine HCl 10 MG 1 capsules Orally Four times a day Member reports not using anymore Not-Taking Atorvastatin Calcium 80 MG 0.5 tablet Or ally Once a day Active predniSONE 10 MG take 4 tabs daily for 3 day, then 3 tabs for 3 days, then 2 tabs for 3 days, then 1 tab for 3 days. Orally Once a day Not-Taking Multivitamin - 1 tablet Orally Once a day One a day(brand name) Active Valsartan 320 MG 1 tablet Orally Once a day Active Tamsulosin HCl 0.4 MG 1 capsule Orally Once a day Active hydrALAZINE HCl 50 MG 1 tablet with food Orally 3 times per day Active Farxiga 5 MG 1 tablet Orally Once a day Not-Taking Insulin Glargine 100 UNIT/ML 62 units Subcutaneous At bedtime Active Insulin Aspart 100 UNIT/ML 22 units befo re breakfast, lunch and dinner Subcutaneous Three times a day Active Lidocaine 5 % 1 patch remove after 12 hours Externally Once a day Active Latanoprost 0.005 % 1 drop into affected eye in the evening Ophthalmic Once a day Active Naproxen 500 MG 1 tablet with food or milk as needed Orally every 12 hrs Member reports not using anymore Not-Taking Magnesium Oxide 420 MG 1 tablet as needed Orally Once a day Active metFORMIN HCl 500 MG 1 tablet with a meal Orally Once a day states was d/c Not-Taking Pregabalin 100 MG 1 capsule Orally Once a day Member reports not using anymore Not-Taking Omeprazole 20 MG 1 capsule 30 minutes before morning meal Orally Once a day Not-Taking Trulicity 1.5 MG/0.5ML as directed Subcutaneous Member reports not using anymore, Switch to diffiennt Insulin Not-Taking Tresiba FlexTouch 200 UNIT/ML Sliding scale Subcutaneous Once a day Member reports not using anymore, switched to different Insulin Not-Taking Bumetanide 1 MG 1 tablet Orally Once a day Active Diclofenac Sodium 1 % as directed Externally Active Carboxymethylcellulose Sod PF 0.5 % as directed Ophthalmic Four times a day Active Immunizations Vaccine Route Administration Date Status Comme [...] Problem Status W/U Status Risk Notes Problem 4259451893 Personal history of nicotine dependence (Z87.891) Active confirmed Problem 000088982 Tinea unguium (B35.1) Active confirmed Problem 064736450 Overweight (E66.3) Active confirmed Problem 8490023 Tachycardia, unspecified (R00.0) Active confirmed Problem 12127223 Abdominal pain, unspecified site (R10.9) Active confirmed Problem 565525836994732 Trigger thumb, l eft thumb (M65.312) Active confirmed Problem 517473624555531 Pain in left christina t (M79.672) Active confirmed Problem 868321430617068 Bursitis of left shoulder (M75.52) Active confirmed Problem 367082219 Spondylosis with out myelopathy or radiculopathy, lumbar region (M47.816) Active confirmed Problem 254145185 Dorsalgia, unspecified (M54.9) Active confirmed Problem 800563786606051 Pain in right fo ot (M79.671) Active confirmed Problem 11713319 Folliculitis (L73.9) Active confirmed Problem 724063141 Facet arthropath y, lumbar (M47.816) Active confirmed Problem 74006202 Cigarette nicoti ne dependence without complication (F17.210) Active confirmed Problem 98936632 Major depressive disorder, recurrent, in full remission (F33.42) Active confirmed Problem 19378389 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) Active confirmed Problem 156964076295045 Unilateral prima ry osteoarthritis, right hip (M16.11) Active confirmed Problem 45321248 Other intervertebral disc degeneration, lumbar region (M51.36) Active confirmed Problem 551447960 Nocturia (R35.1) Active confirmed Problem 931049157 Gastroesophageal reflux disease without esophagitis (K21.9) Active confirmed Problem 534747366 medical terminologist (curre nt) use of insulin (Z79.4) Active confirmed Problem 845414882625374 Hypertensive chronic kidney disease with stage 1 through stage 4 chronic kidney disease, or unspecified chronic kidney disease (I12.9) Active confirmed Problem 939443026 Erectile dysfunction, unspecified erectile dysfunction type (N52.9) Active confirmed Problem 937604215 S/P TURP (Z90.79) Active confirmed Problem 49609526 Primary hypertension (I10) Active confirmed Problem 02391905 Hyperlipidemia, unspecified hyperlipidemia type (E78.5) Active confirmed Problem 5274173370 Left shoulder pa in, unspecified chronicity (M25.512) Active confirmed Problem 466188468 Type 2 diabetes mellitus without complication, without long-term current use of insulin (E11.9) Active confirmed Problem 62983734 Type 2 diabetes mellitus with diabetic neuropathy, without long-term current use of insulin (E11.40) Active confirmed Problem 56134793 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) Active confirmed Problem 545498748 Secondary catara ct of both eyes, unspecified secondary cataract type (H26.40) Active confirmed Problem 931443590 Benign prostatic hyperplasia with lower urinary tract symptoms, symptom details unspecified (N40.1) Active confirmed Problem 52655588 Glaucoma, unspecified glaucoma type, unspecified laterality (H40.9) Active confirmed Problem 8871356 Diverticulitis o f large intestine, unspecified bleeding status, unspecified complication status (K57.32) Active confirmed Problem 67613731 Hepatic cirrhosi s, unspecified hepatic cirrhosis type, unspecified whether ascites present (K74.60) Active confirmed Problem 493564805 Low back pain, unspecified back pain laterality, unspecified chronicity, unspecified whether sciatica present (M54.50) Active confirmed Problem 958308453 H/O hypogonadism (Z86.39) Active confirmed Vital Signs Height-cm 181.61 cm 08/25/2024 Height 71.5 in 08/25/2024 Encounters Encounter Location Date Provider Diagnosis [address] [address] 03/10/2024 Operations Clinical Folliculitis L73.9 ; Primary [...] Unilateral primary osteoarthritis, right hip M16.11 ; medical terminologist (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 Z79.4 ; Low back pain, unspecified back pain laterality, unspecified chronicity, unspecified whether sciatica present M54.50 ; Hypertensive chronic kidney disease with stage 1 through stage 4 chronic kidney disease, or unspecified chronic kidney disease I12.9 and Tachycardia, unspecified R00.[address] [address] 08/25/2024 Arielle Hurtado Folliculitis L73.9 ; Primary hypertension I10 ; [...] Unilateral primary osteoarthritis, right hip M16.11 ; correction (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 Z79.4 ; Low [...] - L73.9) Problem list updated using [employer] 08/25/2024 Folliculitis (ICD-10 - L73.9) 08/25/2024 Primary hypertension (ICD-10 - I10) 03/10/2024 Primary hypertension (ICD-10 - I10) Problem list updated using [employer] 03/10/2024 Cigarette nicotine dependence without complication (ICD-10 - F17.210) Problem list updated using [employer] 08/25/2024 Cigarette nicotine dependence without complication (ICD-10 - F17.210) 08/25/2024 Type 2 diabetes mellitus without complication, without long-term current use of insulin (ICD-10 - E11.9) 03/10/2024 Type 2 diabetes mellitus without complication, without long-term current use of insulin (ICD-10 - E11.9) Problem list updated using [employer] 03/10/2024 Hyperlipidemia, unspecified hyperlipidemia type (ICD-10 - E78.5) Problem list updated using [employer] 08/25/2024 Hyperlipidemia, unspecified hyperlipidemia type (ICD-10 - E78.5) 08/25/2024 Gastroesophageal reflux disease without esophagitis (ICD-10 - K21.9) 03/10/2024 Gastroesophageal reflux disease without esophagitis (ICD-10 - K21.9) Problem list updated using [employer] 03/10/2024 Type 2 diabetes mellitus with diabetic neuropathy, without long-term current use of insulin (ICD-10 - E11.40) Problem list updated using [employer] 08/25/2024 Type 2 diabetes mellitus with diabetic neuropathy, without long-term current use of insulin (ICD-10 - E11.40) 08/25/2024 S/P TURP (ICD-10 - Z90.79) 03/10/2024 S/P TURP (ICD-10 - Z90.79) Problem list updated using [employer] 03/10/2024 H/O hypogonadism (ICD-10 - Z86.39) Problem list updated using [employer] 08/25/2024 H/O hypogonadism (ICD-10 - Z86.39) 08/25/2024 Facet arthropathy, lumbar (ICD-10 - M47.816) 03/10/2024 Facet arthropathy, lumbar (ICD-10 - M47.816) Problem list updated using [employer] 03/10/2024 Diverticulitis of large intestine, unspecified bleeding status, unspecified complication status (ICD-10 - K57.32) Problem list updated using [employer] 08/25/2024 Diverticulitis of large intestine, unspecified bleeding status, unspecified complication status (ICD-10 - K57.32) 08/25/2024 Secondary cataract of both eyes, unspecified secondary cataract type (ICD-10 - H26.40) 03/10/2024 Secondary cataract of both eyes, unspecified secondary cataract type (ICD-10 - H26.40) Problem list updated using [employer] 03/10/2024 Left shoulder pain, unspecified chronicity (ICD-10 - M25.512) Problem list updated using [employer] 08/25/2024 Left shoulder pain, unspecified chronicity (ICD-10 - M25.512) 08/25/2024 Bursitis of left shoulder (ICD-10 - M75.52) 03/10/2024 Bursitis of left shoulder (ICD-10 - M75.52) Problem list updated using [employer] 03/10/2024 Other intervertebral disc degeneration, lumbar region (ICD-10 - M51.36) Problem list updated using [employer] 08/25/2024 Other intervertebral disc degeneration, lumbar region (ICD-10 - M51.36) 08/25/2024 Spondylosis without myelopathy or radiculopathy, lumbar region (ICD-10 - M47.816) 03/10/2024 Spondylosis without myelopathy or radiculopathy, lumbar region (ICD-10 - M47.816) Problem list updated using [employer] 03/10/2024 Dorsalgia, unspecified (ICD-10 - M54.9) Problem list updated using [employer] 08/25/2024 Dorsalgia, unspecified (ICD-10 - M54.9) 08/25/2024 Chronic idiopathic constipation (ICD-10 - K59.04) 03/10/2024 Chronic idiopathic constipation (ICD-10 - K59.04) Problem list updated using [employer] 03/10/2024 Pain in right foot (ICD-10 - M79.671) Problem list updated using [employer] 08/25/2024 Pain in right foot (ICD-10 - M79.671) 08/25/2024 Pain in left foot (ICD-10 - M79.672) 03/10/2024 Pain in left foot (ICD-10 - M79.672) Problem list updated using [employer] 03/10/2024 Tinea unguium (ICD-10 - B35.1) Problem list updated using [employer] 08/25/2024 Tinea unguium (ICD-10 - B35.1) 08/25/2024 Hepatic cirrhosis, unspecified hepatic cirrhosis type, unspecified whether ascites present (ICD-10 - K74.60) 03/10/2024 Hepatic cirrhosis, unspecified hepatic cirrhosis type, unspecified whether ascites present (ICD-10 - K74.60) Problem list updated using [employer] 03/10/2024 Cholesterolosis of gallbladder (ICD-10 - K82.4) Problem list updated using [employer] 08/25/2024 Cholesterolosis of gallbladder (ICD-10 - K82.4) 08/25/2024 Abdominal pain, unspecified site (ICD-10 - R10.9) 03/10/2024 Abdominal pain, unspecified site (ICD-10 - R10.9) Problem list updated using [employer] 03/10/2024 Trigger thumb, left thumb (ICD-10 - M65.312) Problem list updated using [employer] 08/25/2024 Trigger thumb, left thumb (ICD-10 - M65.312) 08/25/2024 Benign prostatic hyperplasia with lower urinary tract symptoms, symptom details unspecified (ICD-10 - N40.1) 03/10/2024 Benign prostatic hyperplasia with lower urinary tract symptoms, symptom details unspecified (ICD-10 - N40.1) Problem list updated using [employer] 03/10/2024 Erectile dysfunction, unspecified erectile dysfunction type (ICD-10 - N52.9) Problem list updated using [employer] 08/25/2024 Erectile dysfunction, unspecified erectile dysfunction type (ICD-10 - N52.9) 08/25/2024 Nocturia (ICD-10 - R35.1) 03/10/2024 Nocturia (ICD-10 - R35.1) Problem list updated using [employer] 03/10/2024 Personal history of nicotine dependence (ICD-10 - Z87.891) Problem list updated using [employer] 08/25/2024 Personal history of nicotine dependence (ICD-10 - Z87.891) 08/25/2024 Overweight (ICD-10 - E66.3) 03/10/2024 Overweight (ICD-10 - E66.3) Problem list updated using [employer] 03/10/2024 Glaucoma, unspecified glaucoma type, unspecified laterality (ICD-10 - H40.9) Problem list updated using [employer] 08/25/2024 Glaucoma, unspecified glaucoma type, unspecified laterality (ICD-10 - H40.9) 08/25/2024 Major depressive disorder, recurrent, in full remission (ICD-10 - F33.42) 03/10/2024 Major depressive disorder, recurrent, in full remission (ICD-10 - F33.42) Problem list updated using [employer] 03/10/2024 Unilateral primary osteoarthritis, right hip (ICD-10 - M16.11) Problem list updated using [employer] 08/25/2024 Unilateral primary osteoarthritis, right hip (ICD-10 - M16.11) 08/25/2024 correction (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 (ICD-10 - Z79.4) 03/10/2024 correction (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 (ICD-10 - Z79.4) Problem list updated using [employer] 03/10/2024 Low back pain, unspecified back pain laterality, unspecified chronicity, unspecified whether sciatica present (ICD-10 - M54.50) Problem list updated using [employer] 08/25/2024 Low back pain, unspecified back pain laterality, unspecified chronicity, unspecified whether sciatica present (ICD-10 - M54.50) 08/25/2024 Hypertensive chronic kidney disease with stage 1 through stage 4 chronic kidney disease, or unspecified chronic kidney disease (ICD-10 - I12.9) 03/10/2024 Hypertensive chronic kidney disease with stage 1 through stage 4 chronic kidney disease, or unspecified chronic kidney disease (ICD-10 - I12.9) Problem list updated using [employer] 03/10/2024 Tachycardia, unspecified (ICD-10 - R00.0) Problem list updated using [employer] 08/25/2024 Tachycardia, unspecified (ICD-10 - R00.0) Plan Of Treatment No Information Insurance Providers Payer Name Payer Address Payer Phone Subscriber Number Group Number Insured Name Patient Relationship to Insured Coverage Start Date Coverage End Date [facility] [place] [employer] ([id number]) [id number] [address] [place] [address] [id number] [place] Rogers Self - patient is the insured [id number]
--- OUTSIDE RECORDS SUMMARY | 2024-09-02 12:00 | XMS_ITS | Clinical Summary ---
Author Organization [address] [facility] Address [address] [place] [address] Phone Care Team Providers Care Home Health Rn Name Role Phone Rashid Steele Primary Care Provider [phone] Allergies Active Allergy Reactions Criticality Noted Date [...] total) by mouth. 03/28/20 24 Active cloNIDine (LIODBNWQ-DCD-9) 0.2 mg/[address] on the skin. [...] (70-30) injection Inject under the skin. 02/22/20 Active trospium (SANCTURA) 20 mg tablet Take 1 tablet (20 mg total) by mouth 2 (two) times a day. 05/06/19 Active tamsulosin (FLOMAX) 0.4 mg 24 hr capsule Take 1 capsule (0.4 mg total) by mouth. at bedtime Active linaGLIPtin 5 mg tablet Take 1 tablet (5 mg total) by mouth daily. 04/05/20 Active insulin glargine-yfgn 100 unit/mL (3 mL) injection Inject under the skin. 06/23/19 Active Active Problems Problem Noted Date Diagnosed Date Spinal stenosis of cervical region with radiculo juan 08/15/2024 Alcoholic liver disease (CMS/HCC V24) 08/08/2024 Overview (08/08/2024): Apr 20, 2008 Entered By: RASHID STEELE Comment: +Trace Ascites per US, ABD, WHAV, FEB 28 Apr 20, 2008 Entered By: RASHID STEELE Comment: US Neg for Hepatoma or Intrahepatic Mass Apr 20, 2008 Entered By: RASHID STEELE Comment: UGI Bleed in 2006 ?? Hepatic cirrhosis (CMS/HCC V24, CMS/HCC V28) Overview (08/08/2024): Dec 01, 2020 Entered By: RASHID STEELE Comment: Cirrhosis Liver Suspected as of DEC 11; Pt. sees Private GI on His Own Dec 01, 2020 Entered By: RSAHID STEELE Comment: GI is at [facility]; , FAX [phone] Dec 01, 2020 Entered By: RASHID STEELE Comment: Patient. [facility]ants [facility] for the [facility] of ABD that GI at [facility] Desires Jul 22, 2021 Entered By: RASHID STEELE Comment: Next Hepatology appt., w/ Imaging at [facility] in Mid - AUG 12 Oct 14, 2021 Entered By: RASHID STEELE Comment: Per Pt., Liver Disease Stable; Not Progressed Oct 14, 2021 Entered By: RASHID STEELE Comment: Chooses Private Care for This Oct 28, 2021 Entered By: RASHID STEELE Comment: LFT's WNL OCTOBER 12 May 31, 2022 Entered By: RASHID STEELE Comment: Still Sees GI/Hepatology at [facility]; Next Appt JUN 15 May 31, 2022 Entered By: RASHID STEELE Comment: US pending at [facility] JUN 15 Dec 01, 2022 Entered By: RASHID STEELE Comment: US, Elastography Liiver DEC 13 [place]: Dec 01, 2022 Entered By: RASHID STEELE Comment: Compensated Advanced Liver Disease; Monitor Once-Twice a Yr Jan 26, 2023 Entered By: RASHID STEELE Comment: See Addendum Dated FEB 12 Jun 01, 2023 Entered By: RASHID STEELE Comment: Last Elastography Liver JUN 16: No New ABNL; Jun 01, 2023 Entered By: RAHSID STEELE Comment: Has Compensated Advanced Liver Disease Jun 01, 2023 Entered By: RASHID STEELE Comment: repeat US of Liver JUN 17 Cervical spondylosis with radiculopathy 08/09/19 Assessment & Plan (08/15/2024 1:26 PM EDT): Mr. Rogers continues to suffer with right arm pain, numbness, and weakness. It bothers him particularly in the shoulder and biceps. He has weakness at the right bicep and the right deltoid. He recently went for an EMG that pointed towards a subacute to chronic right C5 radiculopathy. His MRI of the cervical spine does show moderate to severe foraminal stenosis on the right side at C4-5 and C5-6.'s were reviewed with Dr. Swann who did agree that a right sided C4-5 and C5-6 foraminotomies was appropriate. Risks, benefits, and alternatives were discussed with the patient in detail. He has asked appropriate questions, appears to understand, and wishes to proceed with surgery. He is diabetic and his most recent hemoglobin A1c was 7.4 about 3 months ago. I am going to recheck a new hemoglobin A1c to ensure that he has remained below 8. I have encouraged him to be as strict as possible regarding his diet. I told him I would call him once the hemoglobin A1c came back and if it was below 8 we would schedule surgery. Assessment & Plan (08/08/2024 2:16 PM EDT): Mr. Rogers describes about 6 weeks of weakness with tingling in the right upper extremity. He says he awoke that way. He has difficulty lifting a coffee cup with his right arm. On exam he has weakness in the right biceps graded at approximately 3+ out of 5. 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 The right side at C5-6 there was foraminal stenosis. Of note, Mr. Rogers also has diabetes and hypertension. He is having an EMG on Sunday which should help to clear up the etiology of his right upper extremity weakness. Dr. Swann did review the films and said that a right C5-6 decompression and foraminotomies was reasonable if the EMG pointed at a C6 radiculopathy. I told the patient I would be in touch after reviewing his EMG results. 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, bilateral (CMS/[facility] V24, CMS/[facility] V28) 07/25/2024 Type 2 diabetes mellitus wit [...] (07/25/2024): Oct 14, 2021 Entered By: RASHID STEELE Comment: He Chooses Private Care for This Dec 01, 2022 Entered By: RASHID STEELE Comment: US, Aorta DEC 13 [place]: no AAA Jul 09, 2023 Entered By: RASHID STEELE Comment: hypertension Essential (primary) hypertension 07/25/2024 Postoperative infection 05/19/2024 Trigger finger of right thumb 05/19/2024 Encounters Date Type Department Care Team Description 08/15/2024 12:45 PM EDT Office Visit [facility] [address] [address] Jaxon Anne PA Spinal stenosis of cervical region with radiculopathy (Primary Dx); Type 2 diabetes mellitus with diabetic peripheral angiopathy without gangrene, unspecified whether buttermaker helper insulin use ([facility] V24, [facility] V28); Cervical spondylosis with radiculopathy 08/15/2024 Telephone Neurosurgery [facility] 175 [facility] [address] [place] [address] Jaxon Anne PA 08/11/2024 11:15 AM EDT - 08/11/2024 11:59 PM EDT Hospital Encounter [facility] Neurodiagnostic [address] [place] [address] Arm weakness Discharge Disposition: Home or Self Care 08/08/2024 1:30 PM EDT Consult Neurosurgery [facility] [address] [address] Jaxon Anne PA Cervical spondylosis with radiculopathy (Primary Dx) 07/08/2024 11:55 AM EDT - 07/08/2024 11:59 PM EDT Hospital Encounter [facility] MRI [address] [place] [address] Arm weakness Discharge Disposition: Home or Self Care 06/27/2024 11:15 AM EST Office Visit Orthopedic Surgery - [place] 175 [facility] [address] [place] [address] Anabelle Koehler PA Arm weakness (Primary Dx) 06/25/2024 10:37 AM EST - 06/25/2024 11:59 PM EST Hospital Encounter [facility] MRI [address] [place] [address] Acute pain of right shoulder; Arm weakness Discharge Disposition: Home or Self Care 06/17/2024 1:45 PM EST Office Visit Orthopedic Surgery - [place] 175 [facility] [address] [place] [address] Anabelle Koehler PA Acute pain of right [...] recombinant (Shingrix ) 19yo and older 02/28/2023 Surgical History Surgery Date Site/Laterality Comments OTHER SURGICAL HISTORY 09/21/1972 - 10/20/1972 Right Cartilage replacement APPENDECTOMY Medical History Medical History Date Comments Diabetes ([facility] V24, [facility] V28) Arthritis High blood pressure Social History Tobacco Use Types Packs/Day Years Used Date Smoking Tobacco: Never Passive Smoke Exposure: Never Smokeless Tobacco: Never Tobacco Cessation:Counseling Given: Not Answered Sex and Gender Information Value Date Recorded Sex Assigned at Male 05/07/2024 12:12 PM EST Legal Sex Male 3:58 PM EST Gender Identity Male 05/07/2024 12:12 PM EST Sexual Orientation Straight 05/07/2024 12 :12 PM EST Obstetrics History Last Filed Vital Signs Vital Sign Reading Time Taken Comments Blood Pressure - - Pulse - - Temperature - - Respiratory Rate - - Oxygen Saturation - - Inhaled Oxygen Concentration - - Weight 89.4 kg (197 lb) 08/15/2024 1:13 PM EDT Height 182.9 cm (6') 08/15/2024 1:13 PM EDT Body Mass Index 26.72 08/15/2024 1:13 PM EDT Plan of Treatment Health Maintenance Due Date Last Done Comments Diabetes: Annual Foot Exam 1966 Diabetes: Annual Retina Eye Exam 1966 Hepatitis A Vaccines (1 of 2 - Risk 2-dose series) 07/13/1975 Hepatitis B Vaccines (1 of 3 - Risk 3-dose series) 2016 Colorectal Cancer Screening: Colonoscopy 03/22/2022 Falls Risk [...] Procedure Name Priority Date/Time Associated Diagnosis Comments EMG 1 LIMB Routine 08/11/2024 12:49 PM EDT Arm weakness MR CERVICAL SPINE WO CONTRAST Routine 07/08/2024 1:44 PM EDT Arm weakness MR SHOULDER WO CONTRAST RIGHT Routine 06/25/2024 11:56 AM EST Acute pain of right shoulder Arm weakness XR CERVICAL SPINE 4-5 VIEWS Routine 06/17/2024 2:09 PM EST Neck pain from Last 3 Months Results * EMG one limb (08/11/2024 12:49 PM EDT) Narrative Hood Perry MD - 08/11/2024 4:27 PM EDT See report in chart review Procedure Note Hood Perry MD - 08/11/2024 See report in chart review us [facility] ORDER[facility]LES Final Re sult * MR Cervical Spine wo Contrast (07/08/2024 [...] Signed Date: 07/08/2024 15:11 ET Workstation ID: [id number] Transcribed By: Self Edit Transcribed Date: 07/08/2024 [...] facet arthritis, most pronounced at C3-4 and C7-[id number]. 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 [...] Signed Date: 07/08/2024 15:11 ET Workstation ID: [id number] Transcribed By: Self Edit Transcribed Date: 07/08/2024 [...] Signed Date: 06/25/2024 13:55 ET Workstation ID: [id number] Transcribed By: Self Edit Transcribed Date: 06/25/2024 [...] Signed Date: 06/25/2024 13:55 ET Workstation ID: [id number] Transcribed By: Self Edit Transcribed Date: 06/25/2024 [...] Resul t from Last 3 Months Insurance [facility] MEDICARE Member Subscriber Plan / Payer (Ef fective 2021-Present) Name:Modesto Rogers Relation to Subscriber:Self Name:Modesto Rogers Payer ID:[id number] Group ID:[id number] Type:Not on file Address: [facility] [address] [address] Care Teams Home Health Rn Relationship Specialty Start Date End Date Rashid Steele PA [address] [place] [phone] PCP - General Internal Medicine 08/12/24
--- OUTSIDE RECORDS SUMMARY | 2024-09-02 12:00 | XMS_ITS ---
Author Organization [facility] liance Address [address] [place] [address] Care Team Providers Care Chemical Educator Name Role Phone Gregor Ruiz Primary Care Provider Arielle Huddleston Unavailable [phone] Allergies Allergen (clinical drug ingredient) Drug/Non Drug Allergy documented on EMR Reaction Allergy Type Onset Date Status lisinopril Lisinopril Unknown Drug Allergy Activ e REASON FOR VISIT MDS Assessment Medications Medication SIG (Take, Route, Frequency, Duration) Notes Start Date End Date Status amLODIPine Besylate 5 MG 1 tablet Orally Once a day states was d/c Not-Taking Vitamin D 50 MCG (1999 UT) 1 tablet Oral ly Once a day Active predniSONE 10 MG take 4 tabs daily for 3 day, then 3 tabs for 3 days, then 2 tabs for 3 days, then 1 tab for 3 days. Orally Once a day Not-Taking Valsartan 320 MG 1 tablet Orally Once a day Active Tamsulosin HCl 0.4 MG 1 capsule Orally Once a day Active Insulin Glargine 100 UNIT/ML 62 units Subcutaneous At bedtime Active Lidocaine 5 % 1 patch remove after 12 hours Externally Once a day Active Latanoprost 0.005 % 1 drop into affected eye in the evening Ophthalmic Once a day Active Magnesium Oxide 420 MG 1 tablet as needed Orally Once a day Active Multivitamin - 1 tablet Orally Once a day One a day(brand name) Active hydrALAZINE HCl 50 MG 1 tablet with food Orally 3 times per day Active Farxiga 5 MG 1 tablet Orally Once a day Not-Taking Insulin Aspart 100 UNIT/ML 22 units befo re breakfast, lunch and dinner Subcutaneous Three times a day Active Diclofenac Sodium 1 % as directed Externally Active Carboxymethylcellulose Sod PF 0.5 % as directed Ophthalmic Four times a day Active Atorvastatin Calcium 80 MG 0.5 tablet Or ally Once a day Active Pregabalin 100 MG [...] 1 tablet Orally Once a day Active hydroCHLOROthiazide 12.5 MG 1 capsule in the morning Orally Once a day Taking Valsartan Not-Taking Dicyclomine HCl 10 MG 1 capsules Orally Four times a day Member reports not using anymore Not-Taking Naproxen 500 MG 1 tablet with food or milk as needed Orally every 12 hrs Member reports not using anymore Not-Taking metFORMIN HCl 500 MG 1 tablet with a meal Orally Once a day states was d/c Not-Taking Omeprazole 20 MG 1 capsule 30 minutes before morning meal Orally Once a day Not-Taking Centrum Adults - as directed Orally Duplicate Not-Taking Aspirin 81 81 MG 1 tablet Orally Once a day Member reports not using anymore Not-Taking Vital Signs Height 71.5 in 08/25/2024 Height-cm 181.61 cm 08/25/2024 Encounters Encounter Location Date Provider Diagnosis [address] [address] 08/25/2024 Arielle Hurtado Folliculitis L73.9 ; Primary [...] Unilateral primary osteoarthritis, right hip M16.11 ; half-way (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 Z79.4 ; Low back pain, unspecified back pain laterality, unspecified chronicity, unspecified whether sciatica present M54.50 ; Hypertensive chronic kidney disease with stage 1 through stage 4 chronic kidney disease, or unspecified chronic kidney disease I12.9 and Tachycardia, unspecified R00.0 Assessments Encounter Date Diagnosis (ICD Code) Assessment Notes Treatment Notes Treatment Clinical Notes Section Notes 08/25/2024 Folliculitis (ICD-10 - L73.9) 08/25/2024 Primary hypertension (ICD-10 - I10) 08/25/2024 Cigarette nicotine dependence without complication (ICD-10 - F17.210) 08/25/2024 Type 2 diabetes mellitus without complication, without long-term current use of insulin (ICD-10 - E11.9) 08/25/2024 Hyperlipidemia, unspecified hyperlipidemia type (ICD-10 - E78.5) 08/25/2024 Gastroesophageal reflux disease without esophagitis (ICD-10 - K21.9) 08/25/2024 Type 2 diabetes mellitus with diabetic neuropathy, without long-term current use of insulin (ICD-10 - E11.40) 08/25/2024 S/P TURP (ICD-10 - Z90.79) 08/25/2024 H/O hypogonadism (ICD-10 - Z86.39) 08/25/2024 Facet arthropathy, lumbar (ICD-10 - M47.816) 08/25/2024 Diverticulitis of large intestine, unspecified bleeding status, unspecified complication status (ICD-10 - K57.32) 08/25/2024 Secondary cataract of both eyes, unspecified secondary cataract type (ICD-10 - H26.40) 08/25/2024 Left shoulder pain, unspecified chronicity (ICD-10 - M25.512) 08/25/2024 Bursitis of left shoulder (ICD-10 - M75.52) 08/25/2024 Other intervertebral disc degeneration, lumbar region (ICD-10 - M51.36) 08/25/2024 Spondylosis without myelopathy or radiculopathy, lumbar region (ICD-10 - M47.816) 08/25/2024 Dorsalgia, unspecified (ICD-10 - M54.9) 08/25/2024 Chronic idiopathic constipation (ICD-10 - K59.04) 08/25/2024 Pain in right foot (ICD-10 - M79.671) 08/25/2024 Pain in left foot (ICD-10 - M79.672) 08/25/2024 Tinea unguium (ICD-10 - B35.1) 08/25/2024 Hepatic cirrhosis, unspecified hepatic cirrhosis type, unspecified whether ascites present (ICD-10 - K74.60) 08/25/2024 Cholesterolosis of gallbladder (ICD-10 - K82.4) 08/25/2024 Abdominal pain, unspecified site (ICD-10 - R10.9) 08/25/2024 Trigger thumb, left thumb (ICD-10 - M65.312) 08/25/2024 Benign prostatic hyperplasia with lower urinary tract symptoms, symptom details unspecified (ICD-10 - N40.1) 08/25/2024 Erectile dysfunction, unspecified erectile dysfunction type (ICD-10 - N52.9) 08/25/2024 Nocturia (ICD-10 - R35.1) 08/25/2024 Personal history of nicotine dependence (ICD-10 - Z87.891) 08/25/2024 Overweight (ICD-10 - E66.3) 08/25/2024 Glaucoma, unspecified glaucoma type, unspecified laterality (ICD-10 - H40.9) 08/25/2024 Major depressive disorder, recurrent, in full remission (ICD-10 - F33.42) 08/25/2024 Unilateral primary osteoarthritis, right hip (ICD-10 - M16.11) 08/25/2024 medical terminologist (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 (ICD-10 - Z79.4) 08/25/2024 Low back pain, unspecified back pain laterality, unspecified chronicity, unspecified whether sciatica present (ICD-10 - M54.50) 08/25/2024 Hypertensive chronic kidney disease with stage 1 through stage 4 chronic kidney disease, or unspecified chronic kidney disease (ICD-10 - I12.9) 08/25/2024 Tachycardia, unspecified (ICD-10 - R00.0) Plan Of Treatment No Information Progress Notes * [place] SAM FDOB:1955 (69 yo M)Acc No.[id number]:08/25/2024 Patient:?[place] SAM F ??External Provider:?Arielle Hurtado :1955???Age:69 Y???Sex:Male Arik e:08/25/2024 Address:[address] [place] [address], [place], [id number] Pcp:Gregor Ruiz Patient's Default Facility:[facility] Subjective: * Chief Complaints: * ???1. MDS Assessment. * HPI: ???Depression Screening:?PHQ-9?Little interest or pleasure in doing things?Not at all ?Feeling down, depressed, or hopeless?Not at all ?Trouble falling or staying asleep, or sleeping too much?Not at all ?Feeling tired or having little energy?More than half the days ?Poor appetite or overeating?Not at all ?Feeling [...] yourself in some way?Not at all ?Total Score?2 ?Interpretation?Minimal Depression ???Medication Review:?Medication Review?What service was performed??Routine medication review SCO MDS RA medication review ?Visit/Encounter Type?In person ?Was the medication list in eCW updated??Yes- new or changed medications added ?Were medication discrepancies/issues identified??No ?What interventions have been performed??Remedia reviewed, Member/caregiver education, Allergies Updated, No discrepancies found ? Member has 14 total medications. ???History of Present Illness:?MDS RA completed with member. Alert and oriented x3, forgetful at times. Endorsed he lost glucometer at congregation. [facility] to request [facility] new one. See SOAP note in GC. * Medical History:?? * Medications:?Taking Atorvast atin Calcium 80 MG Tablet 0.5 tablet Orally Once a day , Taking Bumetanide 1 MG Tablet 1 tablet Orally Once a day , Taking Carboxymethylcellulose Sod PF 0.5 % Solution as directed Ophthalmic Four times a day , Taking Diclofenac Sodium 1 % Gel as directed Externally , Taking hydrALAZINE HCl 50 MG Tablet 1 tablet with food Orally 3 times per day , Taking Insulin Aspart 100 UNIT/ML Solution Pen-injector 22 units before breakfast, lunch and dinner Subcutaneous Three times a day , Taking Insulin Glargine 100 UNIT/ML Solution Pen-injector 62 units Subcutaneous At bedtime , Taking Latanoprost 0.005 % Solution 1 drop into affected eye in the evening Ophthalmic Once a day , Taking Lidocaine 5 % Patch 1 patch remove after 12 hours Externally Once a day , Taking Magnesium Oxide 420 MG Tablet 1 tablet as needed Orally Once a day , Taking Multivitamin - Tablet 1 tablet Orally Once a day One a day(brand name), Taking Tamsulosin HCl 0.4 MG Capsule 1 capsule Orally Once a day , Taking Valsartan 320 MG Tablet 1 tablet Orally Once a day , Taking Vitamin D 50 MCG (2000 UT) Tablet 1 tablet Orally Once a day , Not-Taking amLODIPine Besylate 5 MG Tablet 1 tablet Orally Once a day , Notes to Pharmacist: states was d/c, Not-Taking Aspirin 81 81 MG Tablet Chewable 1 tablet Orally Once a day , Notes to Pharmacist: Member reports not using anymore, Not- Taking Centrum Adults - Tablet as directed Orally , Notes to Pharmacist: Duplicate, Not-Taking Dicyclomine HCl 10 MG Capsule 1 capsules Orally Four times a day , Notes to Pharmacist: Member reports not using anymore, Not-Taking Farxiga 5 MG Tablet 1 tablet Orally Once a day , Not-Taking hydroCHLOROthiazide 12.5 MG Capsule 1 capsule in the morning Orally Once a day , Notes to Pharmacist: Taking Valsartan, Not- Taking metFORMIN HCl 500 MG Tablet 1 tablet with a meal Orally Once a day , Notes to Pharmacist: states was d/c, Not-Taking Naproxen 500 MG Tablet 1 tablet with food or milk as needed Orally every 12 hrs , Notes to Pharmacist: Member reports not using anymore, Not-Taking Omeprazole 20 MG Capsule Delayed Release 1 capsule 30 minutes before morning meal Orally Once a day , Not-Taking predniSONE 10 MG Tablet take 4 tabs daily for 3 day, then 3 tabs for 3 days, then 2 tabs for 3 days, then 1 tab for 3 days. Orally Once a day , Not-Taking Pregabalin 100 MG Capsule 1 capsule Orally Once a day , Notes to Pharmacist: Member reports not using anymore, Not-Taking Tresiba FlexTouch 200 UNIT/ML Solution Pen-injector Sliding scale Subcutaneous Once a day , Notes to Pharmacist: Member reports not using anymore, switched to different Insulin, Not-Taking Trulicity 1.5 MG/0.5ML Solution Pen-injector as directed Subcutaneous , Notes to Pharmacist: Member reports not using anymore, Switch to diffiennt Insulin * Allergies:?Lisinopril. Objective: * Vitals:?Pain scale:60-10, Ht : 71.5 in, Ht-cm: 181.61 cm. Assessment: * Assessment: 1.?Folliculitis - L73.9 (Romy lozano)???2.?Primary hypertension - I10???3.?Cigarette nicotine dependence without complication - F17.210???4.?Type 2 diabetes mellitus without complication, without long-term current use of insulin - E11.9 ??5.?Hyperlipidemia, unspecified hyperlipidemia type - E78.5???6.?Gastroesophageal reflux disease without esophagitis - K21.9???7.?Type 2 diabetes mellitus with diabetic neuropathy, without long-term current use of insulin - E11.40? ?8.?S/P TURP - Z90.79???9.?H/O hypogonadism - Z86.39???10.?Facet arthropathy, lumbar - M47.816???11.?Diverticulitis of large intestine, unspecified bleeding status, unspecified complication status - K57.32???12. Secondary cataract of both eyes, unspecified secondary cataract type - H26.40???13.?Left shoulder pain, unspecified chronicity - M25.512???14.?Bursitis of left shoulder - M75.52???15.?Other intervertebral disc degeneration, lumbar region - M51.36???16.?Spondylosis without myelopathy or radiculopathy, lumbar region - M47.816???17.?Dorsalgia, unspecified - M54.9???18.?Chronic idiopathic constipation - K59.04???19.?Pain in right foot - M79.671?? 20.?Pain in left foot - M79.672???21.?Tinea unguium - [...] E66.3???31.?Glaucoma, unspecified glaucoma type, unspecified laterality - H40.9?? 32.?Major depressive disorder, recurrent, in full remission - F33.42???33.?Unilateral primary osteoarthritis, right hip - M16.11???34.?half-way (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 - Z79.4???35.?Low back pain, unspecified back pain laterality, unspecified chronicity, unspecified whether sciatica present - M54.50???36.?Hypertensive chronic kidney disease with stage 1 through stage 4 chronic kidney disease, or unspecified chronic kidney disease - I12.9???37.?Tachycardia, unspecified - R00.0??? Plan: * Treatment: Care Plan: * Problems:? * * Sign off status: Completed true * Provider:Lizzette Hurtado Date:?08/25/2024 Generated for Kelin chang/Elier/Essencesmitting on:?09/02/2024 12:00 PM EDT History and Physical Notes * HPI (History of Present Illness) Category Sub-Category Detail Notes Category Not es Depression Screening PHQ-9 Little inte rest or pleasure in doing things: Not at all Feeling down, depressed, or hopeless: No t at all Trouble falling or staying asleep, or sl eeping too much: Not at all Feeling tired or having little energy: M ore than half the days Poor appetite or overeating: Not at all [...] some way: Not at all Total Score: 2 Interpretation: Minimal Depression History of Present Illness MDS RA completed with member. Alert and oriented x3, forgetful at times. Endorsed he lost glucometer at congregation. [facility] to [facility]. See SOAP note in GC. Medication Review Medication Review What service was performed?: Routine medication review SCO MDS RA medication review Member has 14 total medications Visit/Encounter Type: In person Was the medication list in eCW updated?: Yes- new or changed medications added Were medication discrepancies/issues cintia ntified?: No What interventions have been performed?: Remedia reviewed, Member/caregiver education, Allergies Updated, No discrepancies found
[2024-09-02 18:09] LABS: Hematocrit 26.3 % (42.0-52.0); Hemoglobin 8.4 g/dl (14.0-18.0); Mean Corpuscular HGB Conc 31.9 g/dl (31.0-36.0); Mean Corpuscular Hemoglobin 30.4 pg (27.0-33.0); Mean Corpuscular Volume 95.3 fL (80.0-98.0); Mean Platelet Volume 10.3 fL (9.4-12.4); Platelet Count 194 X10*3/uL (160-400); Red Blood Count 2.76 X10*6/uL (4.60-5.80); Red Cell Distribution Width 11.3 % (11.0-16.0); White Blood Count 5.7 X10*3/uL (4.8-10.8)
[2024-09-02 18:44] LABS: Alanine Aminotransferase 45 U/L (0-40); Alkaline Phosphatase 182 U/L (39-117); Anion Gap 15 (12-20); Aspartate Amino Transferase 48 U/L (5-37); Bilirubin Total 0.3 mg/dL (0.0-1.0); Blood Urea Nitrogen 42 mg/dL (9-16); Calcium 8.2 mg/dL (8.4-10.2); Carbon Dioxide 20 mmol/L (22-29); Chloride 110 mmol/L (96-108); Estimated Glomerular Filt Rate 16; Glucose Random 102 mg/dL (60-115); Iron 79 mcg/dL (45-160); Percent Iron Saturation 41 % (15-50); Potassium 4.8 mmol/L (3.3-5.1); Sodium 140 mmol/L (135-145); Total Iron Binding Capacity 192 mcg/dL (228-428); Total Protein 6.3 g/dL (6.5-8.0); Unsaturated Iron Binding 113 ug/dL
[2024-09-02 18:47] LABS: Parathyroid Hormone Intact 352.7 pg/mL (8.7-77.1)
[2024-09-02 19:00] LABS: Ferritin 386 ng/mL (20-250)
== END 2024-09-02 10:44 | disposition home or self-care (01) ==
LOC: HO.HKASLDS 10:43
PROVIDERS: Visit Provider Internal Medicine Hypertension Specialist
DX: N18.9 Chronic kidney disease, unspecified (principal)
CPT/HCPCS: 36415; 80053; 82728; 83540; 83970; 85027

== ENCOUNTER 2024-09-03 09:13 | Outpatient (AMB) | payer OTHER, SELFPAY ==
--- NOTE | 2024-09-03 09:15 | HO.NEPHOV ---
Vital Signs 09/03/24 09:16 Height 5 ft 9 in Weight 200 lb BMI 29.5 BP 162/84 H Blood Pressure Location Lt brachial Position Sitting Pulse 106 H Pulse Source Pulse Oximeter Pulse Oximetry (%) 96 Oxygen Delivery Method Room Air Intake Visit Reasons: 4wks follow-up Conf Cleaning And Maintenance Worker Required: No Accompanied by: Self / Same As Patient Allergies lisinopril Allergy (Unknown, Verified 09/03/24 09:17) cough Medication List - Last Reconciled 09/03/24 by Tera Aguirre MD albuterol sulfate 90 mcg/actuation inhalation amlodipine 5 mg PO DAILY atorvastatin 80 mg PO QDAY blood sugar diagnostic (FreeStyle Lite Strips) As directed four times a day cholecalciferol (vitamin D3) 50 mcg PO DAILY hydralazine 100 mg (2 x 50 mg) PO TID [insulin 62 units intradermal .after meals] insulin lispro (Humalog U-100 Insulin) 16 units subcut .before meals magnesium oxide 420 mg PO QDAY PRN pen needle, diabetic (BD Ultra-Fine Yuliana Pen Needle) As directed four times a day tamsulosin mg PO DAILY trospium 20 mg PO BID valsartan 320 mg PO DAILY HPI Comments Details: 69 yr old man with long standing h/o HTN And DM for more than 5 years referred for CKD Creatinine was 1.2 in 2020. Creatinine has bumped up to 1.7 in June Currently on Bumex 0.5mg along with VAlsartan 320 mg 01/02/2024. 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 03/05/24 c/o Itching and rash x 3-4 weeks ;Farxiga was started 6 weeks ago. cr upto 2.98! 04/09/24 Still with itching; Off Farxiga; GAined 4 lbs ; c/o edema 06/11/24 Still has itching Has been taking Hydralazine QD instead of TID Lost 10-14 lbs with Bumex 08/06/24 No improving in Itching 09/03/24 69-year-old male seen for Chronic Kidney Disease and associated symptoms. He experiences persistent pruritus involving his eyes, scalp, arms, and legs, possibly linked to medication adjustments since the introduction of hydralazine. Attempts to modify medications have thus far provided insufficient relief for his symptoms. The patient also has a history of hypertension and diabetes mellitus with suboptimal glycemic control; his recent blood glucose was recorded at 238 mg/dL. He correlates dietary habits with blood sugar fluctuations and has been attempting to improve these. Concurrently, the patient reports peripheral edema with associated discoloration. His CKD is advancing, with a current kidney function level at an approximate GFR of 16%, a reduction from a previous measurement of 19%. The patient has brother on dialysis; his brother recently began treatment due to similar underlying conditions. These factors contribute to the patient?s concern about future renal interventions. [facility] Medical History Diabetes type 2, uncontrolled Essential hypertension Hypertriglyceridemia Hyperlipidemia LDL goal <100 Type 2 diabetes mellitus with diabetic polyneuropathy Cirrhosis of liver GERD (gastroesophageal reflux disease) Tubular adenoma of colon Chronic idiopathic constipation Surgical History History of penile implant History of gastric surgery H/O esophagogastroduodenoscopy Hx of colonoscopy (~10/2014) Family History Father No problems noted. Mother Esophageal cancer Maternal Grandfather Prostate cancer Diabetes Maternal Grandmother CVD (cardiovascular disease) Daughter Tubular adenoma Social History Household Members: Spouse Alcohol intake: current Alcohol intake frequency: former alcohol drinker Patient Tobacco Use Status: Former Tobacco user Physical Exam Comfortable Neck supple no JVD. Lungs entry equal no rales. Heart S1-S2 heard no gallop or rub. Abdomen soft nontender. Neuro alert awake oriented. No asterixis. Extremities 1 to 2 + edema. Results Reviewed Nephrology Results: Hgb 8.4 g/dl (14.0-18.0) L 09/02/24 WBC 5.7 X10*3/uL (4.8-10.8) 09/02/24 Plt Count 194 X10*3/uL (160-400) 09/02/24 Sodium 140 mmol/L (135-145) 09/02/24 Potassium 4.8 mmol/L (3.3-5.1) 09/02/24 Chloride 110 mmol/L (96-108) H 09/02/24 Carbon Dioxide 20 mmol/L (22-29) L 09/02/24 BUN 42 mg/dL (9-16) H 09/02/24 Creatinine 3.82 mg/dL (0.5-1.4) H 09/02/24 Calcium 8.2 mg/dL (8.4-10.2) L 09/02/24 PTH Intact 352.7 pg/mL (8.7-77.1) H 09/02/24 Urine Protein 300 (3+) mg/dL (Neg-Trace) H 06/10/24 Urine Creatinine 45.81 mg/dL 06/10/24 Assessment & Plan Assessment & Plan (1) CKD (chronic kidney disease): Comment: Kidney biopsy on 12/18/2023 revealed nodular mesangial/diabetic glomerulosclerosis. Moderately active interstitial nephritis with eosinophils. Moderate chronic changes including global glomerulosclerosis 35%, tubular atrophy/interstitial fibrosis 30%. Vascular sclerosis moderate with focal hyalinosis. Code(s): N18.9 - Chronic kidney disease, unspecified Category: Medical (2) BPH w urinary obs/LUTS: Code(s): N40.1 - Benign prostatic hyperplasia with lower urinary tract symptoms; N13.8 - Other obstructive and reflux uropathy Category: Medical (3) Essential hypertension: Code(s): I10 - Essential (primary) hypertension Category: Medical (4) Type 2 diabetes mellitus with diabetic polyneuropathy: Code(s): E11.42 - Type 2 diabetes mellitus with diabetic polyneuropathy Category: Medical (5) Cirrhosis of liver: Comment: 2019 hepatitis a B and C screens negative Code(s): K74.60 - Unspecified cirrhosis of liver Category: Medical Plan . 69 yr old man with CKD in a setting of DM and HTN Diabetic nephropathy by biopsy No evidence of obstruction based on recent imaging Will benefit from SGLT-2 inhibitors Added Farxiga 5 mg daily ( dec 2023) On Hold due to itching Since biopsy showed evidence of active interstitial nephritis- stopped omeprazole. Goal is to slow the progression of renal disease Maintain BP < 130/80 and A1c < 7% Avoid nephrotoxins including NSAIDS Superimposed DEMI Probably from hypoperfusion from the addition of NSAIDS/interstitial nephritis AVOID NSAIDS HTN BP sub optimal but better controlled keep Amlodipine 5 mg QD / Keep Valsartan Keep Hydralazine to 100 mg TID Rash- allergic reaction - ? Farxiga HOLD Farxiga Treated with a course of Prednisone - No improvement Rash resolved Hydroxyzine 10 mg PRN- no improvement in itching-Will DC 09/03/24 - Stop taking hydralazine as directed and see if itching improves - Start taking clonidine 0.1 mg twice a day. - Continue using Valsartan as prescribed. - Monitor blood sugar levels closely and adjust your diet as needed. - Stay well-hydrated; try to drink plenty of water daily. - Look out for signs of worsening kidney function or any new symptoms. - A dialysis educator will contact you to discuss treatment options. - Follow up in six weeks or sooner if your symptoms worsen. Orders: Orders Basic Metabolic Panel 4 Weeks N18.9 - Chronic kidney disease, unspecified Complete Blood Count no Diff 4 Weeks N18.9 - Chronic kidney disease, unspecified Medications: New clonidine HCl 0.1 mg PO BID 60 tabs 1RF Discontinued hydralazine Discontinued Reason: Doctor's Order 100 mg (2 x 50 mg) PO TID 180 tabs 1RF Coding Level of Care Code Est Pt Level 4 (87030) Diagnoses CKD (chronic kidney disease) N18.9 BPH w urinary obs/LUTS N40.1; N13.8 Essential hypertension I10 Type 2 diabetes mellitus with diabetic polyneuropathy E11.42 Cirrhosis of liver K74.60
[2024-09-03 09:16] VITALS: BP 162/84; PULSE 106; O2SAT 96; BMI 29.5
--- OUTSIDE RECORDS SUMMARY | 2024-09-03 09:43 | XMS_ITS | Clinical Summary ---
Author Organization [facility] Address [address] [place] [address] Care Team Providers Care Barrel Repairer Name Role Phone Anel Padgett [facility] Primary Care Provider [phone] Source Comments PLEASE NOTE, if this patient [...] injectionIndicatio ns:Diabetes mellitus type 2 in nonobese ([facility]) Inject w/meals 70-100 NO u 101- 140 2 U, 141-180 3 U, 181-220 4 U, 221-260 6 U, 261-300 8 U, 301-350 10 U,351-400 12 ,>400 callMD 10 mL 5 7 Active insulin needles 31 gauge x 1/4 Indications:Di abetes mellitus type 2 in nonobese ([facility]) DX.E11.65 insulin injection 4 times a day 100 Each 7 Active lancetsIndications :Diabetes mellitus type 2 in nonobese ([facility]) DX E11.65 . Blood sugar check 4 times a day 100 Each 7 Active [address] tabletIndications: Diabetes mellitus type 2 in nonobese ([facility]) Take 1 Tab by mouth once daily 8 Active insulin glargine (LANTUS) 100 unit/mL injectionIndicatio ns:Diabetes mellitus type 2 in nonobese ([facility]) Inject 60 Units into the skin once daily 10 mL 5 8 Active linagliptin (TRADJENTA) 5 mg tabIndications:Ava rigobertoes mellitus type 2 in nonobese ([facility]) Take 1 Tab by mouth once daily 30 Tab 3 8 Active FREESTYLE LITE STRIPS stripsIndications: Diabetes mellitus type 2 in nonobese ([facility]) USE TO TEST BLOOD SUGAR THREE TIMES [...] mcg/actuation nasal sprayIndications:N [place] congestion Place 1 [place] in both nostrils once daily for 14 [...] 01/20/2017 Overview (01/20/2017): Colonoscopy done 11/11/14 at [facility] - small hiatus hernia with no evidence of reflux esophagitis , normal colonoscopy Endoscopy also done - DX superficial gastritis Diverticulitis of large intestine 04/05/2015 Overview (04/05/2015): Seen at [facility] 03/25/2015 for abdominal pain for 3 days. Treated with Levaquin,and flagyl . CT Scan : Wall thickening with Inflammatory changes surrounding junction of descending/sigmoid colon. Pt has history of Diverticulitis S/P Partial colon Resection 2-3 years ago. History of Negative Colonoscopy early 2014 at [facility] Facet arthropathy, lumbar 02/03/2015 Overview (02/03/2015): Sees [facility]. X-ray 12/05/2014 L4-L5 facet arthropathy. Undergoing PT. X- Ray hip normal H/O hypogonadism 01/19/2015 Overview (01/19/2015): Sees Urologist S/P TURP 02/25/2014 Overview (07/01/2017): Done 10/21/2013. Sees Urologist Hood Elizondo 05/25/17 - No show to Urology F/U DM type 2 (diabetes mellitus, type 2) ([facility]) 07/28/2013 Overview (09/10/2013): Pt sees Endo at [facility] Hyperlipidemia 07/28/2013 GERD (gastroesophageal reflux disease) 4 DM neuropathy, painful ([facility]) 07/28/2013 Diabetic eye exam ([facility]) 06/27/2013 Overview (06/27/2013): Pt has an [...] Colonoscopy 06/05/2024 06/05/2014 Colorectal Cancer Screening 06/05/2024 [id number] ( season) 2024 01/23/2024, 01/31/2022, 04/02/2021, Additional [...] complication, with long-term current use of insulin ([facility]) Hypertension, unspecified type LIPID PANEL Routine 05/06/2024 1:56 PM EST Encounter to establish care Controlled type 2 diabetes mellitus without complication, with long-term current use of insulin ([facility]) Hypertension, unspecified type MICROALBUMIN/CREATININ E RATIO, URINE, RANDOM Routine 05/06/2024 1:56 PM EST Encounter to establish care Controlled type 2 diabetes mellitus without complication, with long-term current use of insulin ([facility]) HGBA1C W/MPG Routine 05/06/2024 1:56 PM EST Encounter to establish care Controlled type 2 diabetes mellitus without complication, with long-term current use of insulin ([facility]) HEPATITIS A,B,C PANEL Routine 02/27/2017 11:10 AM EST Multiple joint pain from Last 3 Months or Most Recently Relevant to Health Maintenance Results * HEALTH HISTORY SCANNED DOCUMENT (08/11/2024 3:00 AM EDT) 08/11/2024 3:00 AM EDT [facility] Provider Default SCAN OTHER ORDERS Final Re sult * REFERRAL SCANNED DOCUMENT (08/08/2024 3:00 AM EDT) 08/08/2024 3:00 AM EDT [facility] STRATEGY EXECUTION CONSULTANT SCAN REFERRAL Final Result * IMAGING SCANNED DOCUMENT (07/08/2024 3:00 AM EDT) Only the most recent of3 resultswithin the time period is included. 07/08/2024 3:00 AM EDT Anel Gurung STRATEGY EXECUTION CONSULTANT SCAN IMAGING Final Result * REFERRAL TO ORTHOPEDICS (06/27/2024 3:00 AM EST) 06/27/2024 3:00 AM EST Mary Osborne PA-C REFERRAL Edited Resu lt - Final * (ABNORMAL) HGBA1C W/MPG (05/06/2024 1:56 PM EST) HEMOGLOBIN A1C 7.4(H) <5.7 % of total Hgb [facility] Comment: For someone without known diabetes, a [...] ?? MEAN PLASMA GLUCOSE 186 mg/dL (calc) [facility] Blood Blood / Unknown 05/06/2024 1 :56 PM EST 05/06/2024 1:56 PM EST Narrative [facility] [facility] - 05/08/2024 5:49 PM EST FASTING:NO us Mary Osborne PA-C LAB - BLOOD DRAW Edited Res ult - Final Performing Organization Address [facility] Co de Phone Number [facility] [address] [place] [address], [employer] [address] [address] * (ABNORMAL) MICROALBUMIN/CREATININE RATIO, URINE, RANDOM (05/06/2024 1:56 PM EST) CREATININE, RANDOM URINE 37 20 - 320 mg/dL [facility] MICROALBUMIN 147.9 mg/dL [facility] Comment: Verified by repeat analysis. Reference Range Not established MICROALBUMIN/CREA TININE RATIO, RANDOM URINE 3,997(H) <30 mg/g creat [facility] Comment: The ADA defines abnormalities in albumin [...] PM EST 05/06/2024 1:56 PM EST Narrative [facility] - 05/08/2024 5:49 PM EST FASTING:NO us Mary Osborne PA-C LAB - NO BLOOD DRAW Final R esult Performing Organization Address [facility] Co de Phone Number [facility] [address] [place] [address], [employer] [address] [address] * (ABNORMAL) LIPID PANEL (05/06/2024 1:56 PM EST) CHOLESTEROL, TOTAL 122 <200 mg/dL [facility] HDL CHOLESTEROL 41 > OR = 40 mg/dL [facility] TRIGLYCERIDES 174(H) <150 mg/dL [facility] LDL-CHOLESTEROL 56 99 mg/dL (calc) [facility] Comment: Reference range: <100 Desirable range <100 mg/dL for primary prevention; ?? <70 mg/dL for patients with CHD or diabetic patients with > or = 2 CHD risk factors. LDL-C is now calculated using the Annalise calculation, which is a validated novel method providing better accuracy than the Friedewald equation in the estimation of LDL-C. Hola SS et al. KAUSHIK. 2013;310(19): 4167-6003 (http://education.[employer]/faq/UDZ821) CHOL/HDLC RATIO 3.0 <5.0 (calc) [facility] NON-HDL CHOLESTEROL 81 <130 mg/dL (calc) [facility] Comment: For patients with diabetes plus 1 major ASCVD risk factor, treating to a non-HDL-C goal of <100 mg/dL (LDL-C of <70 mg/dL) is considered a therapeutic option. Blood Blood / Unknown 05/06/2024 1 :56 PM EST 05/06/2024 1:56 PM EST Narrative [facility] [facility] [facility] - 05/08/2024 5:49 PM EST FASTING:NO Mary Osborne PA-C LAB - BLOOD DRAW Final Resu lt [facility] [address] [address], [facility] [address] [place] [address] * (ABNORMAL) COMPREHENSIVE METABOLIC PANEL (05/06/2024 1:56 PM EST) GLUCOSE 329(H) 65 - 139 mg/dL [facility] Comment: ?Non-fasting reference interval UREA NITROGEN (BUN) 39(H) 7 - 25 mg/dL [facility] CREATININE (blood) 2.99(H) 0.70 - 1.35 mg/dL [facility] EGFR 22(L) > OR = 60 mL/min/1. 73m2 [facility] BUN/CREATININE RATIO 13 6 - 22 (calc) [facility] SODIUM 133(L) 135 - 146 mmol/L [facility] POTASSIUM 4.4 3.5 - 5.3 mmol/L [facility] CHLORIDE 101 98 - 110 mmol/L [facility] CARBON DIOXIDE 22 20 - 32 mmol/L [facility] CALCIUM 8.4(L) 8.6 - 10.3 mg/dL [facility] PROTEIN, TOTAL 5.8(L) 6.1 - 8.1 g/dL [facility] ALBUMIN 3.2(L) 3.6 - 5.1 g/dL [facility] GLOBULIN 2.6 1.9 - 3.7 g/dL (calc) [facility] ALBUMIN/GLOBULI N RATIO 1.2 1.0 - 2.5 (calc) [facility] BILIRUBIN, TOTAL 0.3 0.2 - 1.2 mg/dL [facility] ALKALINE PHOSPHATASE 181(H) 35 - 144 U/L [facility] AST 25 10 - 35 U/L [facility] ALT 26 9 - 46 U/L [facility] Blood Blood / Unknown 05/06/2024 1 :56 PM EST 05/06/2024 1:56 PM EST Narrative [facility] [facility] - 05/08/2024 5:49 PM EST FASTING:NO us Mary Osborne PA-C LAB - BLOOD DRAW Edited Res ult - Final [facility] [address] [address], [facility] [address] [address] * HEPATITIS A,B,C PANEL (02/27/2017 11:10 AM EST) HEPATITIS B SURFACE ANTIBODY NEGATIVE NEGATIVE [facility] HEPATITIS B SURFACE ANTIGEN NEGATIVE NEGATIVE [facility] Comment: Over the counter supplements containing high doses of biotin may interfere with this assay. ??If interference is suspected, patients shoud be retested after refraining from biotin supplements for 72 hours. HEPATITIS C VIRUS DIAGNOSTIC NEGATIVE NEGATIVE [facility] HEPATITIS B CORE ANTIBODY NEGATIVE NEGATIVE [facility] HEPATITIS A ANTIBODY TOTAL NEGATIVE NEGATIVE [facility] Comment: Over the counter supplements containing high doses of biotin may interfere with this assay. ??If interference is suspected, patients shoud be retested after refraining from biotin supplements for 72 hours. Blood specimen (specimen) Blood / Unknown 02/27/2017 11:10 AM EST 02/27/2017 11:33 AM EST Narrative [facility] - 02/27/2017 4:19 PM EST [facility] [address] [place] [address] PT ID [id number] ORD# [id number] Gregor GRIFFITH LAB - BLOOD DRAW Edited Result - Final [facility] [address] [place] [address], from Last 3 Months or Most Recently Relevant to Health Maintenance Insurance [facility] D[facility]AL [facility] [employer] NET D[facility]AL [facility] Member Subscriber Plan / Payer (Ef fective 2021-Present) Name:Modesto Rogers Relation to Subscriber:Self Name:Modesto Rogers Payer ID:[id number] Group ID:Not on file Type:Indemnity Address: [address] [place] [address] Care Teams Barrel Repairer Relationship Specialty Start Date End Date Anel Padgett FNP [address] [place] [id number] PCP - General Internal Medicine 09/05/21
--- OUTSIDE RECORDS SUMMARY | 2024-09-03 09:44 | XMS_ITS | Patient Health Record ---
Author Organization [facility] liance Address [address] [place] [address] Care Team Providers Care Spinning Lathe Operator Hydraulic Name Role Phone Gregor Ruiz Primary Care Provider Unavailabl e Clinical, Operations Unavailable Unavailable Kaiden Bautista Unavailable [phone] BryantArielle Unavailable [phone] Allergies Allergen (clinical drug ingredient) Drug/Non Drug [...] Problem Status W/U Status Risk Notes Problem 6045449266 Personal history of nicotine dependence (Z87.891) Active confirmed Problem 326052308 Tinea unguium (B35.1) Active confirmed Problem 522527317 Overweight (E66.3) Active confirmed Problem 8597160 Tachycardia, unspecified (R00.0) Active confirmed Problem 39827805 Abdominal pain, unspecified site (R10.9) Active confirmed Problem 990457236345795 Trigger thumb, l eft thumb (M65.312) Active confirmed Problem 873165761463551 Pain in left christina t (M79.672) Active confirmed Problem 483938911773065 Bursitis of left shoulder (M75.52) Active confirmed Problem 938497219 Spondylosis with out myelopathy or radiculopathy, lumbar region (M47.816) Active confirmed Problem 841269433 Dorsalgia, unspecified (M54.9) Active confirmed Problem 012256655026866 Pain in right fo ot (M79.671) Active confirmed Problem 98976576 Folliculitis (L73.9) Active confirmed Problem 434149157 Facet arthropath y, lumbar (M47.816) Active confirmed Problem 27536466 Cigarette nicoti ne dependence without complication (F17.210) Active confirmed Problem 77266114 Major depressive disorder, recurrent, in full remission (F33.42) Active confirmed Problem 07071832 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) Active confirmed Problem 325241132475510 Unilateral prima ry osteoarthritis, right hip (M16.11) Active confirmed Problem 36494316 Other intervertebral disc degeneration, lumbar region (M51.36) Active confirmed Problem 039232877 Nocturia (R35.1) Active confirmed Problem 553412713 Gastroesophageal reflux disease without esophagitis (K21.9) Active confirmed Problem 470968331 skilled nursing (curre nt) use of insulin (Z79.4) Active confirmed Problem 869385305548701 Hypertensive chronic kidney disease with stage 1 through stage 4 chronic kidney disease, or unspecified chronic kidney disease (I12.9) Active confirmed Problem 275716388 Erectile dysfunction, unspecified erectile dysfunction type (N52.9) Active confirmed Problem 402833083 S/P TURP (Z90.79) Active confirmed Problem 32988005 Primary hypertension (I10) Active confirmed Problem 83665950 Hyperlipidemia, unspecified hyperlipidemia type (E78.5) Active confirmed Problem 2400081925 Left shoulder pa in, unspecified chronicity (M25.512) Active confirmed Problem 019221223 Type 2 diabetes mellitus without complication, without long-term current use of insulin (E11.9) Active confirmed Problem 94497984 Type 2 diabetes mellitus with diabetic neuropathy, without long-term current use of insulin (E11.40) Active confirmed Problem 10777427 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) Active confirmed Problem 560613969 Secondary catara ct of both eyes, unspecified secondary cataract type (H26.40) Active confirmed Problem 821965853 Benign prostatic hyperplasia with lower urinary tract symptoms, symptom details unspecified (N40.1) Active confirmed Problem 08268985 Glaucoma, unspecified glaucoma type, unspecified laterality (H40.9) Active confirmed Problem 2545866 Diverticulitis o f large intestine, unspecified bleeding status, unspecified complication status (K57.32) Active confirmed Problem 43080695 Hepatic cirrhosi s, unspecified hepatic cirrhosis type, unspecified whether ascites present (K74.60) Active confirmed Problem 789339072 Low back pain, unspecified back pain laterality, unspecified chronicity, unspecified whether sciatica present (M54.50) Active confirmed Problem 382517151 H/O hypogonadism (Z86.39) Active confirmed Vital Signs Height-cm 181.61 cm 08/25/2024 Height 71.5 in 08/25/2024 Encounters Encounter Location Date Provider Diagnosis [facility] [address] [facility] [address] [place] [address] 09/01/2024 Kaiden Michele [facility] [address] [place] [address] 03/10/2024 Operations Clinical Folliculitis L73.9 ; Primary [...] Unilateral primary osteoarthritis, right hip M16.11 ; skilled nursing (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 Z79.4 ; Low back pain, unspecified back pain laterality, unspecified chronicity, unspecified whether sciatica present M54.50 ; Hypertensive chronic kidney disease with stage 1 through stage 4 chronic kidney disease, or unspecified chronic kidney disease I12.9 and Tachycardia, unspecified R00.0 [facility] [address] [place] [address] 08/25/2024 Arielle Hurtado Folliculitis L73.9 ; Primary [...] Unilateral primary osteoarthritis, right hip M16.11 ; long term care administrator (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 Z79.4 ; Low [...] using [employer] 08/25/2024 Folliculitis (ICD-10 - L73.9) 03/10/2024 Primary hypertension (ICD-10 - I10) Problem list updated using [employer] 08/25/2024 Primary hypertension (ICD-10 - I10) 03/10/2024 Cigarette nicotine dependence without complication (ICD-10 - F17.210) Problem list updated using [employer] 08/25/2024 Cigarette nicotine dependence without complication (ICD-10 - F17.210) 03/10/2024 Type 2 diabetes mellitus without complication, without long-term current use of insulin (ICD-10 - E11.9) Problem list updated using [employer] 08/25/2024 Type 2 diabetes mellitus without complication, without long-term current use of insulin (ICD-10 - E11.9) 08/25/2024 Hyperlipidemia, unspecified hyperlipidemia type (ICD-10 - E78.5) 03/10/2024 Hyperlipidemia, unspecified hyperlipidemia type (ICD-10 - E78.5) Problem list updated using [employer] 03/10/2024 Gastroesophageal reflux disease without esophagitis (ICD-10 - K21.9) Problem list updated using [employer] 08/25/2024 Gastroesophageal reflux disease without esophagitis (ICD-10 - K21.9) 08/25/2024 Type 2 diabetes mellitus with diabetic neuropathy, without long-term current use of insulin (ICD-10 - E11.40) 03/10/2024 Type 2 diabetes mellitus with diabetic neuropathy, without long-term current use of insulin (ICD-10 - E11.40) Problem list updated using [employer] 03/10/2024 S/P TURP (ICD-10 - Z90.79) Problem list updated using [employer] 08/25/2024 S/P TURP (ICD-10 - Z90.79) 08/25/2024 H/O hypogonadism (ICD-10 - Z86.39) 03/10/2024 H/O hypogonadism (ICD-10 - Z86.39) Problem list updated using [employer] 08/25/2024 Facet arthropathy, lumbar (ICD-10 - M47.816) [...] [employer] 08/25/2024 Dorsalgia, unspecified (ICD-10 - M54.9) 03/10/2024 Chronic idiopathic constipation (ICD-10 - K59.04) Problem list updated using [employer] 08/25/2024 Chronic idiopathic constipation (ICD-10 - K59.04) [...] [employer] 08/25/2024 Tinea unguium (ICD-10 - B35.1) 03/10/2024 Hepatic cirrhosis, unspecified hepatic cirrhosis type, unspecified whether ascites present (ICD-10 - K74.60) Problem list updated using [employer] 08/25/2024 Hepatic cirrhosis, unspecified hepatic cirrhosis type, [...] - N40.1) Problem list updated using [employer] 08/25/2024 Benign prostatic hyperplasia with lower urinary tract symptoms, symptom details unspecified (ICD-10 - N40.1) 08/25/2024 Erectile dysfunction, unspecified erectile dysfunction type (ICD-10 - N52.9) 03/10/2024 Erectile dysfunction, unspecified erectile dysfunction type (ICD-10 - N52.9) Problem list updated using [employer] 03/10/2024 Nocturia (ICD-10 - R35.1) Problem list updated using [employer] 08/25/2024 Nocturia (ICD-10 - R35.1) 03/10/2024 Personal history [...] osteoarthritis, right hip (ICD-10 - M16.11) 03/10/2024 skilled nursing (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 (ICD-10 - Z79.4) Problem list updated using [employer] 08/25/2024 long term care administrator (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 (ICD-10 - Z79.4) [...] - I12.9) Problem list updated using [employer] 08/25/2024 Hypertensive chronic kidney disease with stage 1 through stage 4 chronic kidney disease, or unspecified chronic kidney disease (ICD-10 - I12.9) 08/25/2024 Tachycardia, unspecified (ICD-10 - R00.0) 03/10/2024 Tachycardia, unspecified (ICD-10 - R00.0) Problem list updated using [employer] Plan Of Treatment No Information Insurance Providers Payer Name Payer Address Payer Phone Subscriber Number Group Number Insured Name Patient Relationship to Insured Coverage Start Date Coverage End Date [facility] [place] [employer] ([id number] [facility] [address] [place] [address] [id number] Modesto Rogers Self - patient is the insured 2 [phone]
--- OUTSIDE RECORDS SUMMARY | 2024-09-03 09:44 | XMS_ITS ---
Author Organization [facility] liance Address [address] [place] [address] Care Team Providers Care Pipe Organ Technician Name Role Phone Gregor Ruiz Primary Care Provider Arielle Huddleston Unavailable [phone] Allergies Allergen (clinical drug ingredient) Drug/Non Drug [...] 08/25/2024 Encounters Encounter Location Date Provider Diagnosis [address] [address] 08/25/2024 Arielle Hurtado Folliculitis L73.9 ; Primary [...] Unilateral primary osteoarthritis, right hip M16.11 ; [facility] (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 Z79.4 ; Low [...] osteoarthritis, right hip (ICD-10 - M16.11) 08/25/2024 terminal computer 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 (ICD-10 - [...] * Modesto SAM FDOB:1955 (69 yo M)Acc No.[id number]:08/25/2024 Patient:?Modesto SAM F ??External Provider:?Arielle Hurtado :1955???Age:69 Y???Sex:Male Arik e:08/25/2024 Address:[address] [place] [address], [place], [id number] Pcp:Gregor Ruiz Patient's Default Facility:[facility] Subjective: * Chief Complaints: * ???1. MDS [...] at times. Endorsed he lost glucometer at [facility]. Member will contact PCP/[facility] to request a [...] Assessment: * Assessment: 1.?Folliculitis - L73.9 (Romy loznao)???2.?Primary hypertension - I10???3.?Cigarette nicotine dependence without complication [...] - F33.42???33.?Unilateral primary osteoarthritis, right hip - M16.11???34.?[facility] (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 - Z79.4???35.?Low back [...] Provider:Lizzette Hurtado Date:?08/25/2024 Generated for Kelin chang/Elier/Essencesmitting on:?09/03/2024 09:44 AM EDT History and Physical Notes * [...] at times. Endorsed he lost glucometer at [facility]. Member will contact PCP/[facility] to request a [...]
--- OUTSIDE RECORDS SUMMARY | 2024-09-03 09:44 | XMS_ITS | Clinical Summary ---
Author Organization [address] [facility] Address [address] [place] [address] Phone Care Team Providers Care Inspector Canvas Products Name Role Phone Rashid Steele Primary Care Provider Allergies Active Allergy Reactions Criticality Noted Date [...] total) by mouth. 03/28/20 24 Active cloNIDine ([id number]) 0.2 mg/[address] on the skin. [...] His Own Dec 01, 2020 Entered By: RASHID STEELE Comment: GI is at [facility]; , FAX [phone] Dec 01, 2020 Entered By: RASHID STEELE Comment: Patient. [facility] of ABD that GI at [place] Desires Jul 22, 2021 Entered By: RASHID STEELE Comment: Next Hepatology appt., w/ Imaging at [place] in Mid - AUG 12 Oct 14, 2021 Entered By: RASHID STEELE Comment: Per Pt., Liver Disease Stable; Not Progressed Oct 14, 2021 Entered By: RASHID STEELE Comment: Chooses Private Care for This Oct 28, 2021 Entered By: RASHID STEELE Comment: LFT's WNL OCTOBER 12 May 31, 2022 Entered By: RASHID STEELE Comment: Still Sees GI/Hepatology at [facility]; Next Appt JUN 15 May 31, 2022 Entered By: RASHID STEELE Comment: US pending at [place] JUN 15 Dec 01, 2022 Entered By: RASHID STEELE Comment: US, Elastography Liiver DEC 13 [place]: Dec 01, 2022 Entered By: RASHID STEELE Comment: Compensated Advanced Liver Disease; Monitor Once-Twice a Yr Jan 26, 2023 Entered By: RASHID STEELE Comment: See Addendum Dated FEB 12 Jun 01, 2023 Entered By: RASHID STEELE Comment: Last Elastography Liver JUN 16: No New ABNL; Jun 01, 2023 Entered By: RASHID STEELE Comment: Has Compensated Advanced Liver Disease [...] nonproliferative 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 edema, bilateral ([facility] V24, [facility] V28) 07/25/2024 Type 2 diabetes mellitus wit [...] RASHID STEELE Comment: US, Aorta DEC 13 [place]: no AAA Jul 09, 2023 Entered By: RASHID STEELE Comment: hypertension Essential (primary) hypertension 07/25/2024 Postoperative infection 05/19/2024 Trigger finger of right thumb 05/19/2024 Encounters Date Type Department Care Team Description 08/15/2024 12:45 PM EDT Office Visit [facility] [address] [address] Jaxon Anne PA Spinal stenosis of cervical region with radiculopathy (Primary Dx); Type 2 diabetes mellitus with diabetic peripheral angiopathy without gangrene, unspecified whether meterman insulin use ([facility] V24, [facility] V28); Cervical spondylosis with radiculopathy 08/15/2024 Telephone Neurosurgery [facility] 175 [facility] [address] [place] [address] Jaxon Anne PA 08/11/2024 11:15 AM EDT - 08/11/2024 11:59 PM EDT Hospital Encounter [facility] Neurodiagnostic [address] [place] [address] Arm weakness Discharge Disposition: Home or Self Care 08/08/2024 1:30 PM EDT Consult Neurosurgery [facility] [address] [address] Jaxon Anne PA Cervical spondylosis with radiculopathy (Primary Dx) 07/08/2024 11:55 AM EDT - 07/08/2024 11:59 PM EDT Hospital Encounter [facility] MRI [address] [place] [address] Arm weakness Discharge Disposition: Home or Self Care 06/27/2024 11:15 AM EST Office Visit Orth[facility] - [place] 175 [facility] [address] [place] [address] Anabelle Koehler PA Arm weakness (Primary Dx) 06/25/2024 10:37 AM EST - 06/25/2024 11:59 PM EST Hospital Encounter [facility] MRI [address] [place] [address] Acute pain of right shoulder; Arm weakness Discharge Disposition: Home or Self Care 06/17/2024 1:45 PM EST Office Visit Orthopedic Surgery - [place] 175 [facility] [address] [place] [address] Anabelle Koehler PA Acute pain [...] Medical History Medical History Date Comments Diabetes ([facility] V24, [facility] V28) Arthritis High blood pressure Social History [...] Signed Date: 07/08/2024 15:11 ET Workstation ID: [id number] Transcribed By: Self Edit Transcribed Date: 07/08/2024 [...] facet arthritis, most pronounced at C3-4 and C7-H3abvpueazpdg. 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 [...] Signed Date: 07/08/2024 15:11 ET Workstation ID: [id number] Transcribed By: Self Edit Transcribed Date: 07/08/2024 [...] Signed Date: 06/25/2024 13:55 ET Workstation ID: [id number] Transcribed By: Self Edit Transcribed Date: 06/25/2024 [...] Signed Date: 06/25/2024 13:55 ET Workstation ID: [id number] Transcribed By: Self Edit Transcribed Date: 06/25/2024 [...] Resul t from Last 3 Months Insurance [facility] MEDICARE Member Subscriber Plan / Payer (Ef fective 2021-Present) Name:Modesto Rogers Relation to Subscriber:Self Name:Modesto Rogers Payer ID:[id number] Group ID:[id number] Type:Not on file Address: [facility] [address] [address] Care Teams Inspector Canvas Products Relationship Specialty Start Date End Date Rashid Steele PA [address] [place] [id number] PCP - General Internal Medicine 08/12/24
--- OUTSIDE RECORDS SUMMARY | 2024-09-03 09:44 | XMS_ITS ---
Author Organization [facility] Address [address] [place] [address] Care Team Providers Care Senior Mechanical Design Engineer Name Role Phone Gregor Ruiz Primary [...] Problem Status W/U Status Risk Notes Problem [id number] Hypertensive chronic kidney disease with stage 1 through stage 4 chronic kidney disease, or unspecified chronic kidney disease (I12.9) Active confirmed Problem [id number] Tachycardia, unspecified (R00.0) Active confirmed Encounters Encounter Location Date Provider Diagnosis [address] [address] 03/10/2024 Operations Clinical Folliculitis L73.9 ; Primary [...] Unilateral primary osteoarthritis, right hip M16.11 ; longterm (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 Z79.4 ; Low [...] M16.11) Problem list updated using [employer] 03/10/2024 emt intermediate (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 (ICD-10 - Z79.4) [...] * Modesto SAM FDOB:1955 (68 yo M)Acc No.[id number]:03/10/2024 Patient:?Modesto SAM F ??External Provider:?Operations Clinical?Resource:Chin Marinelli :1955???Age:68 Y???Sex:Male Arik e:03/10/2024 Address:[address] [id number] Pcp:Gregor Ruiz Patient's Default Facility:[facility] Subjective: * Chief Complaints: * [...] F33.42 33.?Unilateral primary osteoarthritis, right hip - M16.11?34.?longterm (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 - Z79.4?35.?Low back pain, unspecified back pain laterality, unspecified chronicity, unspecified whether sciatica present - M54.50?36.?Hypertensive chronic kidney disease with stage 1 through stage 4 chronic kidney disease, or unspecified chronic kidney disease - I12.9?37.?Tachycardia, unspecified - R00.0? Problem list updated using [employer]. Plan: * Treatment: * Procedure Codes:? Care Plan: * Problems:? * * Sign off status: Completed true * Provider:?Operations Clinical Date:?02/21 Generated for Kelin chang/Elier/Radhaitting on:?09/03/2024 09:43 AM EDT History and Physical Notes * [...]
--- OUTSIDE RECORDS SUMMARY | 2024-09-03 09:44 | XMS_ITS ---
Author Organization [facility] [place] [address] Care Team Providers Care Credit Consultant Name Role Phone Gregor Ruiz Primary Care Provider Ramona iasac Son, Kaiden Unavailable [phone] REASON FOR VISIT POLY-ACH/COB/NILAY Encounters Encounter Location Date Provider Diagnosis [address] [address] 09/01/2024 Kaiden Bautista Plan Of Treatment No Information Progress Notes * Modesto SAM FDOB:1955 (69 yo M)Acc No.[id number]:09/01/2024 Patient:?Modesto SAM Brii :1955???Age:69 Y???Sex:Male Address:[place] [address] Subjective: * Chief Complaints: * ???POLY-ACH/COB/NILAY * HPI: ???Pharmacy Assessment:?Pharmacy Assessment?Clinical Interventions?None ?Operational Interventions?None ?Pharmacy Education?None ?Disease/System?Psychiatric, Other (describe in notes) Hydroxyzine ?Visit Program?Population Health Program (describe in notes), Pharmacy Initiated POLY-ACH/NILAY * Medical History:?? * Surgical History:? * Hospitalization/Major Diagno stic Procedure:? * Medications:? Objective: * Vitals:? * Physical Examination:? Assessment: Plan: * Treatment: * Procedure Codes:? * true * Date:? Generated for Kelin chang/Elier/Christian on:?09/03/2024 09:44 AM EDT History and Physical Notes * HPI (History of Present Illness) Category Sub-Category Detail Notes Category Not es Pharmacy Assessment Pharmacy Assessment Clinical Interventions: None Operational Interventions: None Pharmacy Education: None Disease/System: Psychiatric, Other (desc ribe in notes) Hydroxyzine Visit Program: Population He alth Program (describe in notes), Pharmacy Initiated POLY-ACH/NILAY
== END 2024-09-03 09:30 | disposition home or self-care (01) ==
LOC: HO.HKAS 09:14
PROVIDERS: PCP Physician Assistant Medical; Visit Provider Internal Medicine Hypertension Specialist
DX: I12.9 Hypertensive chronic kidney disease with stage 1 through stage 4 chronic kidney disease, or unspecified chronic kidney disease (principal); N18.9 Chronic kidney disease, unspecified; N40.1 Benign prostatic hyperplasia with lower urinary tract symptoms; N13.8 Other obstructive and reflux uropathy; E11.42 Type 2 diabetes mellitus with diabetic polyneuropathy; K74.60 Unspecified cirrhosis of liver
CPT/HCPCS: 99214

== ENCOUNTER → 2024-09-03 09:13 | Outpatient (BNVA) | payer OTHER, SELFPAY | PROVIDERS: PCP Physician Assistant Medical; Visit Provider Internal Medicine Hypertension Specialist | DX: E11.22 Type 2 diabetes mellitus with diabetic chronic kidney disease (principal); I12.9 Hypertensive chronic kidney disease with stage 1 through stage 4 chronic kidney disease, or unspecified chronic kidney disease; N18.9 Chronic kidney disease, unspecified; E11.42 Type 2 diabetes mellitus with diabetic polyneuropathy; N40.1 Benign prostatic hyperplasia with lower urinary tract symptoms; N13.8 Other obstructive and reflux uropathy; K74.60 Unspecified cirrhosis of liver | CPT/HCPCS: 99212 ==

== ENCOUNTER 2024-10-03 13:24 | Outpatient (AMB) | payer OTHER, SELFPAY ==
--- NOTE | 2024-10-03 13:34 | A.OFFVIS_ITS ---
Vital Signs 10/03/24 14:32 Height 5 ft 9 in Weight 192 lb BMI 28.4 BP 138/76 Blood Pressure Location Rt brachial Position Sitting Pulse 92 Pulse Source Pulse Oximeter Pulse Oximetry (%) 96 Oxygen Delivery Method Room Air Intake Visit Reasons: cirrhosis/Repeat colonoscopy Intake Note: Established patient for cirrhosis mgmt + recall colo screening. CC; C.O. diarrhea, loose stools, and nausea. Pt states that he had been taking a fiber supplement which had been helpful but had run out and never refilled it. 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 X Chronic kidney disease Cirrhosis Diabetes High cholesterol Hypertension History of tubular adenoma BPH GERD Constipation * SURGICAL HISTORY Penile implant Gastric surgery EGD Colonoscopy-2014 equals negative exam prior history of TA * ALLERGIES Lisinopril * [facility]: Laboratory Tests 09/02/24 10:47 WBC 5.7 Hgb 8.4 L Hct 26.3 L MCV 95.3 MCH 30.4 Plt Count 194 Estimated GFR 16 Ferritin 386 H Total Bilirubin 0.3 AST 48 H ALT 45 H Alkaline Phosphatase 182 H PTH Intact 352.7 H Assessment & Plan (1) Chronic idiopathic constipation: Comment: Now managed on Flax Code(s): K59.04 - Chronic idiopathic constipation Plan: We review his tests and his liver is fairly stable but his diabetes could be better and likely is the largest impact now. This is managed by the [facility]. (Miguel Rea!!). He continues with flax seed for his CIC and this is controlling it well. His pain in the right flank is improved; but we really don't know why. Lumbar spine sign DJD but thoracic spine ok. He asks about his hip, but I did not look at that. I would have to defer to his primary care provider if he needs additional x-rays. He will be starting PT at [facility] soon for his hip and low back. He continues on omeprazole with good control of his GERD. ROV 6 mos. (2) GERD (gastroesophageal reflux disease): Code(s): K21.9 - Gastro-esophageal reflux disease without esophagitis (3) Back pain: Code(s): M54.9 - Dorsalgia, unspecified (4) Right flank pain: Code(s): R10.9 - Unspecified abdominal pain (5) Cirrhosis of liver: Comment: 2018 hepatitis a B and C screens negative, at that time ferritin normal at 142, transaminases were normal with a mildly elevated bilirubin of 1.1 and no direct, significant history of ETOH use/abuse but none for the last 5 years. Alpha Fetoprotein 3.0, MEHRAN Screen NEGATIVE, Anti-Mitochondrial Ab NEGATIVE, Anti- Smooth Muscle Ab <20, Ferritin 377 H At that time liver elastography showing and equivalent of F2-F3 fibrosis. CURRENT Laboratory Tests 07/13/21 Estimated GFR > 60 Random Glucose 330 H Ferritin 377 H Total Bilirubin 0.3 Direct Bilirubin 0.3 AST 35 ALT 44 H Alkaline Phosphatase 147 H D Alpha Fetoprotein 2.3 ULTRASOUND OF THE ABDOMEN 08/08/21 US/US abdomen limited IMPRESSION: -Subtle hepatic nodular surface suspicious for cirrhosis, also questioned on CT 2018. -No focal hepatic parenchymal lesion. No ascites. -Small gallbladder polyp. No stone or sludge. No ductal dilatation. Code(s): K74.60 - Unspecified cirrhosis of liver TODAY'S VISIT PATIENT HAS BEEN LOST TO FOLLOW-UP SINCE 07/2022 He has had some health challenges since I last saw him, he had a stroke that effected his right arm but it improved and he now had renal disease. He is having post prandial stool urgency with diarrhea at times it is soft. He no longer has GERD and is not taking any PPI. Will get some testing, he is on magnesium likely for his renal status, and this could be factor. He is due for colonoscopy. He denies any cardiac or respiratory problems No anesthesia or sedation problems. No ID problems. PHX TA ROV 8 weeks. [facility] Medical History Diabetes type 2, uncontrolled Essential hypertension Hypertriglyceridemia Hyperlipidemia LDL goal <100 Type 2 diabetes mellitus with diabetic polyneuropathy Cirrhosis of liver GERD (gastroesophageal reflux disease) Tubular adenoma of colon Chronic idiopathic constipation Surgical History History of penile implant History of gastric surgery H/O esophagogastroduodenoscopy Hx of colonoscopy (~10/2014) Family History Father No problems noted. Mother Esophageal cancer Maternal Grandfather Prostate cancer Diabetes Maternal Grandmother CVD (cardiovascular disease) Daughter Tubular adenoma Social History Household Members: Spouse Alcohol intake: current Alcohol intake frequency: former alcohol drinker Patient Tobacco Use Status: Former Tobacco user Review of Systems Const Denies fatigue, Denies fever(s), Denies night sweats, Denies poor appetite and Denies weight loss ENT Reports Normal hearing present, Denies dental pain, Denies dysphagia, Denies hearing loss, Denies mouth pain, Denies odynophagia, Denies throat swelling, Denies tongue swelling and Reports other (Dentition adequate) Card Reports no additional complaints Resp Reports no additional complaints GI Details: Reports abdominal pain, Denies melena, Reports bloating, Denies hematochezia, Denies constipation, Denies GI cramping, Denies dysphagia, Reports excessive flatus (Malodorous), Denies early satiety, Denies heartburn, Denies diarrhea, Reports loose stools, Denies nausea, Denies odynophagia, Denies vomiting and Denies hematemesis Skin/Breast Denies pruritus, Denies lesions, Denies rash and Denies jaundice Neuro Reports Normal hearing present and Denies Abnormal speech present Endo Denies fatigue Aller/Immun Denies throat swelling and Denies tongue swelling Physical Exam Vital Signs: Last Vital Signs Pulse 92 10/03/24 14:32 BP 138/76 10/03/24 14:32 Pulse Ox 96 10/03/24 14:32 Oxygen Delivery Method Room Air 10/03/24 14:32 BMI result Body Mass Index 28.4 Const General: cooperative, no acute distress, well developed and well groomed Nutritional Appearance: well nourished and overweight Orientation/consciousness: oriented to person, oriented to place and oriented to time Limitations: No language barrier HEENT Head: Yes normocephalic and Yes atraumatic Eyes General: appearance normal, both eyes and all related structures Pupils: Equal, round and reactive pupils present Neck Neck: Yes normal visual inspection and Yes no lymphadenopathy Thyroid: Thyroid normal Resp Effort & Inspection: normal respiratory effort and able to speak in complete sentences Auscultation: clear to auscultation bilaterally Cardio Rate: regular rate Rhythm: regular rhythm Heart sounds: Normal, physiologic split S2 sound present Peripheral pulses: radial pulses present and posterior tibial pulses present GI Inspection: No distended and No Abdominal panniculus present Palpation (GI): Soft to palpation, nontender, no guarding, not rigid and No hepatosplenomegaly present Percussion: Yes normal to percussion Auscultation: normal bowel sounds Rectal Exam - Male: Yes deferred Skin General skin exam: no rashes or lesions noted, turgor normal, skin not dry, no jaundice, No spider nevi and no striae Rashes: no rashes Nails: normal Neuro General: oriented to person, oriented to place and oriented to time Cranial nerves: Yes Equal, round and reactive pupils present and Yes Normal hearing present Speech: No Abnormal speech present Extrem General: Yes normal to inspection, No clubbing, No cyanosis and No edema Psych Appearance: grossly normal and well kempt Mental Status: mental status grossly normal Speech and movement: Normal speech and movement present Affect: normal affect Attitude: cooperative Thought process: Normal thought process present and not confabulating Thought content: Normal thought content present Insight: Limited insight present (Psych) Judgement: Limited judgement present (Psych) Results Reviewed Results Reviewed: Laboratory Tests 09/02/24 10:47 WBC 5.7 Hgb 8.4 L Hct 26.3 L MCV 95.3 MCH 30.4 Plt Count 194 Estimated GFR 16 Ferritin 386 H Total Bilirubin 0.3 AST 48 H ALT 45 H Alkaline Phosphatase 182 H PTH Intact 352.7 H Assessment & Plan Assessment & Plan (1) Tubular adenoma of colon: Comment: 2021 scope equals large TA repeated 3 years aeb Code(s): D12.6 - Benign neoplasm of colon, unspecified Category: Medical (2) Chronic idiopathic constipation: Comment: Now managed on Flax Code(s): K59.04 - Chronic idiopathic constipation Category: Medical (3) Diarrhea: Code(s): R19.7 - Diarrhea, unspecified Category: Medical (4) Upper abdominal pain: Code(s): R10.10 - Upper abdominal pain, unspecified Category: Medical (5) Pre-op examination: Code(s): Z01.818 - Encounter for other preprocedural examination Category: Medical (6) CKD (chronic kidney disease): Comment: Kidney biopsy on 12/18/2023 revealed nodular mesangial/diabetic glomerulosclerosis. Moderately active interstitial nephritis with eosinophils. Moderate chronic changes including global glomerulosclerosis 35%, tubular atrophy/interstitial fibrosis 30%. Vascular sclerosis moderate with focal hyalinosis. Code(s): N18.9 - Chronic kidney disease, unspecified Category: Medical Plan PATIENT HAS BEEN LOST TO FOLLOW-UP SINCE 07/2022 He has had some health challenges since I last saw him, he had a stroke that effected his right arm but it improved and he now had renal disease. He is having post prandial stool urgency with diarrhea at times it is soft. He no longer has GERD and is not taking any PPI. Will get some testing, he is on magnesium likely for his renal status, and this could be factor. He is due for colonoscopy. He denies any cardiac or respiratory problems No anesthesia or sedation problems. No ID problems. PHX TA ROV 8 weeks Orders: Orders Colonoscopy - GI Use Only Today D12.6 - Benign neoplasm of colon, unspecified US abdomen complete Today R10.10 - Upper abdominal pain, unspecified, R19.7 - Diarrhea, unspecified Rast Allergen Today K59.04 - Chronic idiopathic constipation Calprotectin, Fecal Today R10.9 - Unspecified abdominal pain, R19.7 - Diarrhea, unspecified Pancreatic Elastase-1 Today R19.7 - Diarrhea, unspecified Hemoglobin A1c Today K59.04 - Chronic idiopathic constipation C Reactive Protein Today K59.04 - Chronic idiopathic constipation TSH reflex Free T4 Today K59.04 - Chronic idiopathic constipation Medications: New bisacodyl (Dulcolax (bisacodyl)) 10 mg (2 x 5 mg) PO BEDTIME 2 days 4 tabs 0RF peg 3350-electrolytes 236-22.74-6.74 -5.86 gram (Golytely) until fecal effluent is clear; do not exceed a total volume of 2,000 mL 240 mL PO Q10M 1 day 4,000 mL 0RF Z12.11 - Encounter for screening for malignant neoplasm of colon Coding Level of Care Code Est Pt Level 4 (72227) Diagnoses Tubular adenoma of colon D12.6 Chronic idiopathic constipation K59.04 Diarrhea R19.7 Upper abdominal pain R10.10 Pre-op examination Z01.818 CKD (chronic kidney disease) N18.9 Time Spent (min) 38
--- OUTSIDE RECORDS SUMMARY | 2024-10-03 13:42 | XMS_ITS | Clinical Summary ---
Author Organization [facility] Address [address] [place] [address] Care Team Providers Care Animal Cop Name Role Phone Anel Padgett [facility] Primary Care Provider [phone] Source Comments PLEASE NOTE, if this patient [...] injectionIndicatio ns:Diabetes mellitus type 2 in nonobese ([facility]) Inject w/meals 70-100 NO u 101- 140 2 U, 141-180 3 U, 181-220 4 U, 221-260 6 U, 261-300 8 U, 301-350 10 U,351-400 12 ,>400 callMD 10 mL 5 7 Active insulin needles 31 gauge x 1/4 Indications:Di abetes mellitus type 2 in nonobese ([facility]) DX.E11.65 insulin injection 4 times a day 100 Each 7 Active lancetsIndications :Diabetes mellitus type 2 in nonobese ([facility]) DX E11.65 . Blood sugar check 4 times a day 100 Each 7 Active aspirin [address] tabletIndications: Diabetes mellitus type 2 in nonobese ([facility]) Take 1 Tab by mouth once daily 8 Active insulin glargine (LANTUS) 100 unit/mL injectionIndicatio ns:Diabetes mellitus type 2 in nonobese ([facility]) Inject 60 Units into the skin once daily 10 mL 5 8 Active linagliptin (TRADJENTA) 5 mg tabIndications:Ava rigobertoes mellitus type 2 in nonobese ([facility]) Take 1 Tab by mouth once daily 30 Tab 3 8 Active FREESTYLE LITE STRIPS stripsIndications: Diabetes mellitus type 2 in nonobese ([facility]) USE TO TEST BLOOD SUGAR THREE TIMES [...] mcg/actuation nasal sprayIndications:N chel[place] congestion Place 1 [place] in both nostrils once daily for 14 [...] 01/20/2017 Overview (01/20/2017): Colonoscopy done 11/11/14 at [facility] - small hiatus hernia with no evidence of reflux esophagitis , normal colonoscopy Endoscopy also done - DX superficial gastritis Diverticulitis of large intestine 04/05/2015 Overview (04/05/2015): Seen at [facility] 03/25/2015 for abdominal pain for 3 days. Treated with Levaquin,and flagyl . CT Scan : Wall thickening with Inflammatory changes surrounding junction of descending/sigmoid colon. Pt has history of Diverticulitis S/P Partial colon Resection 2-3 years ago. History of Negative Colonoscopy early 2014 at [facility] Facet arthropathy, lumbar 02/03/2015 Overview (02/03/2015): Sees [place] [facility]. X-ray 12/05/2014 L4-L5 facet arthropathy. Undergoing PT. X- Ray hip normal H/O hypogonadism 01/19/2015 Overview (01/19/2015): Sees Urologist S/P TURP 02/25/2014 Overview (07/01/2017): Done 10/21/2013. Sees Urologist Hood Elizondo 05/25/17 - No show to Urology F/U DM type 2 (diabetes mellitus, type 2) ([facility]) 07/28/2013 Overview (09/10/2013): Pt sees Endo at [facility] Hyperlipidemia 07/28/2013 GERD (gastroesophageal reflux disease) 4 DM neuropathy, painful ([facility]) 07/28/2013 Diabetic eye exam ([facility]) 06/27/2013 Overview (06/27/2013): Pt has an eye [...] Date Last Done Comments Dental Examination 1955 Medicare Annual Wellness Visit 1974 CT Colonography 2001 FIT/gFOBT 2001 Fecal DNA 2001 Flexible Sigmoidoscopy 2001 Tobacco Cessation Counseling (#1) 06/13/2014 Retinopathy Screening 09/26/2018 09/26/2017 (Managed by Outside Provider), 07/13/2015, 07/07/2014 (Managed by Outside Provider), Additional history exists Diabetes Foot Exam 07/09/2019 07/08/2018 (M anaged by Outside Provider), 03/04/2018 (Managed by Outside Provider), 07/20/2017 (Managed by Outside Provider), Additional history exists Abdominal Aortic Aneurysm Screening 2021 Falls Prevention 2021 Imm-Zoster, Recombinant (3 of 3) 04/25/2023 02/29/20, 08/08/2017 Colonoscopy 06/05/2024 06/05/2014 Colorectal Cancer Screening 06/05/2024 [id number] ( season) 2024 01/23/2024, 01/31/2022, 04/02/2021, Additional [...] Procedure Name Priority Date/Time Associated Diagnosis Comments REFERRAL SCANNED DOCUMENT 08/29/2024 3:00 AM EDT HEALTH HISTORY SCANNED DOCUMENT 08/11/2024 3:00 AM EDT REFERRAL SCANNED DOCUMENT 08/08/2024 3:00 AM EDT IMAGING SCANNED DOCUMENT 07/08/2024 3:00 AM EDT COMPREHENSIVE METABOLIC PANEL Routine 05/06/2024 1:56 PM EST Encounter to establish care Controlled type 2 diabetes mellitus without complication, with long-term current use of insulin ([facility]) Hypertension, unspecified type LIPID PANEL Routine 05/06/2024 1:56 PM EST Encounter to establish care Controlled type 2 diabetes mellitus without complication, with long-term current use of insulin ([facility]) Hypertension, unspecified type MICROALBUMIN/CREATININ E RATIO, URINE, RANDOM Routine 05/06/2024 1:56 PM EST Encounter to establish care Controlled type 2 diabetes mellitus without complication, with long-term current use of insulin ([facility]) HGBA1C W/MPG Routine 05/06/2024 1:56 PM EST Encounter to establish care Controlled type 2 diabetes mellitus without complication, with long-term current use of insulin ([facility]) HEPATITIS A,B,C PANEL Routine 02/27/2017 11:10 AM EST Multiple joint pain from Last 3 Months or Most Recently Relevant to Health Maintenance Results * REFERRAL SCANNED DOCUMENT (08/29/2024 3:00 AM EDT) Only the most recent of2 resultswithin the time period is included. 08/29/2024 3:00 AM EDT Chma Provider Default SCAN REFERRAL Final Resu lt * HEALTH HISTORY SCANNED DOCUMENT (08/11/2024 3:00 AM EDT) 08/11/2024 3:00 AM EDT Chma Provider Default SCAN OTHER ORDERS Final Re sult * IMAGING SCANNED DOCUMENT (07/08/2024 3:00 AM EDT) 07/08/2024 3:00 AM EDT Anel Padgett PLATE FINISHER SCAN IMAGING Final Result * (ABNORMAL) HGBA1C W/MPG (05/06/2024 1:56 PM EST) HEMOGLOBIN A1C 7.4(H) <5.7 % of total Hgb [facility] Comment: For someone without known diabetes, a [...] ?? MEAN PLASMA GLUCOSE 186 mg/dL (calc) [facility] Blood Blood / Unknown 05/06/2024 1 :56 PM EST 05/06/2024 1:56 PM EST Narrative [facility] - 05/08/2024 5:49 PM EST FASTING:NO Mary Osborne PA-C LAB - BLOOD DRAW Edited Res ult - Final [facility] [address] [address], [employer] [facility] [address] [place] [address] * (ABNORMAL) MICROALBUMIN/CREATININE RATIO, URINE, RANDOM (05/06/2024 1:56 PM EST) CREATININE, RANDOM URINE 37 20 - 320 mg/dL [employer] [facility] MICROALBUMIN 147.9 mg/dL [employer] [facility] Comment: Verified by repeat analysis. Reference Range Not established MICROALBUMIN/CREA TININE RATIO, RANDOM URINE 3,997(H) <30 mg/g creat [employer] [facility] Comment: The ADA defines abnormalities in [...] PM EST 05/06/2024 1:56 PM EST Narrative [employer] [facility] - 05/08/2024 5:49 PM EST FASTING:NO Mary Osborne PA-C LAB URINE AMBULATORY Final Result [employer] [facility] [address] [address], [employer] [address] [address] * (ABNORMAL) LIPID PANEL (05/06/2024 1:56 PM EST) CHOLESTEROL, TOTAL 122 <200 mg/dL [employer] [facility] HDL CHOLESTEROL 41 > OR = 40 mg/dL [employer] [facility] TRIGLYCERIDES 174(H) <150 mg/dL [employer] [facility] LDL-CHOLESTEROL 56 99 mg/dL (calc) [employer] [facility] Comment: Reference range: <100 Desirable range <100 mg/dL for primary prevention; ?? <70 mg/dL for patients with CHD or diabetic patients with > or = 2 CHD risk factors. LDL-C is now calculated using the Hola-Patel calculation, which is a validated novel method providing better accuracy than the Friedewald equation in the estimation of LDL-C. Hola PHAN et al. KAUSHIK. 2013;310(19): 3526-1173 (http://education.Mobifusion/faq/LSM373) CHOL/HDLC RATIO 3.0 <5.0 (calc) [facility] NON-HDL CHOLESTEROL 81 <130 mg/dL (calc) [facility] Comment: For patients with diabetes plus 1 major ASCVD risk factor, treating to a non-HDL-C goal of <100 mg/dL (LDL-C of <70 mg/dL) is considered a therapeutic option. Blood Blood / Unknown 05/06/2024 1 :56 PM EST 05/06/2024 1:56 PM EST Narrative [facility] - 05/08/2024 5:49 PM EST FASTING:NO Mary Osborne PA-C LAB - BLOOD DRAW Final Resu lt [employer] [address] [address], [employer] [address] [address] * (ABNORMAL) COMPREHENSIVE METABOLIC PANEL (05/06/2024 1:56 PM EST) GLUCOSE 329(H) 65 - 139 mg/dL [facility] Comment: ?Non-fasting reference interval UREA NITROGEN (BUN) 39(H) 7 - 25 mg/dL [employer] [facility] CREATININE (blood) 2.99(H) 0.70 - 1.35 mg/dL [employer] [facility] EGFR 22(L) > OR = 60 mL/min/1. 73m2 [employer] [facility] BUN/CREATININE RATIO 13 6 - 22 (calc) [facility] SODIUM 133(L) 135 - 146 mmol/L [facility] POTASSIUM 4.4 3.5 - 5.3 mmol/L [facility] CHLORIDE 101 98 - 110 mmol/L [facility] CARBON DIOXIDE 22 20 - 32 mmol/L [facility] CALCIUM 8.4(L) 8.6 - 10.3 mg/dL [facility] PROTEIN, TOTAL 5.8(L) 6.1 - 8.1 g/dL [facility] ALBUMIN 3.2(L) 3.6 - 5.1 g/dL [facility] GLOBULIN 2.6 1.9 - 3.7 g/dL (calc) [employer] [facility] ALBUMIN/GLOBULI N RATIO 1.2 1.0 - 2.5 (calc) [facility] BILIRUBIN, TOTAL 0.3 0.2 - 1.2 mg/dL [employer] [facility] ALKALINE PHOSPHATASE 181(H) 35 - 144 U/L [employer] [facility] AST 25 10 - 35 U/L [employer] [facility] ALT 26 9 - 46 U/L [employer] [facility] Blood Blood / Unknown 05/06/2024 1 :56 PM EST 05/06/2024 1:56 PM EST Narrative [facility] - 05/08/2024 5:49 PM EST FASTING:NO Mary Osborne PA-C LAB - BLOOD DRAW Edited Res ult - Final [facility] [address] [address], [facility] [address] [place] [address] * HEPATITIS A,B,C PANEL (02/27/2017 11:10 AM EST) HEPATITIS B SURFACE ANTIBODY NEGATIVE NEGATIVE [facility] HEPATITIS B SURFACE ANTIGEN NEGATIVE NEGATIVE [facility] Comment: Over the counter supplements containing high doses of biotin may interfere with this assay. ??If interference is suspected, patients shoud be retested after refraining from biotin supplements for 72 hours. HEPATITIS C VIRUS DIAGNOSTIC NEGATIVE NEGATIVE [facility] HEPATITIS B CORE ANTIBODY NEGATIVE NEGATIVE [facility] HEPATITIS A ANTIBODY TOTAL NEGATIVE NEGATIVE [facility] Comment: Over the counter supplements containing high doses of biotin may interfere with this assay. ??If interference is suspected, patients shoud be retested after refraining from biotin supplements for 72 hours. Blood specimen (specimen) Blood / Unknown 02/27/2017 11:10 AM EST 02/27/2017 11:33 AM EST Narrative [facility] - 02/27/2017 4:19 PM EST [facility] [address] [place] [address] PT ID [id number] ORD# [id number] Gregor Sara PLATE FINISHER LAB - BLOOD DRAW Edited Result - Final [facility] [address] [place] [address], from Last 3 Months or Most Recently Relevant to Health Maintenance Insurance [facility] [place] [id number] Care Teams Animal Cop Relationship Specialty Start Date End Date Anel Padgett FNP [address] [place] [address] PCP - General Internal Medicine 09/05/21
[2024-10-03 14:32] VITALS: BP 138/76; PULSE 92; O2SAT 96; BMI 28.4
== END 2024-10-03 14:57 | disposition home or self-care (01) ==
LOC: HO.HGI 13:25
PROVIDERS: PCP Physician Assistant Medical; Visit Provider Nurse Practitioner
DX: D12.6 Benign neoplasm of colon, unspecified (principal); K59.04 Chronic idiopathic constipation; R19.7 Diarrhea, unspecified; R10.10 Upper abdominal pain, unspecified; N18.9 Chronic kidney disease, unspecified
CPT/HCPCS: 99214

== ENCOUNTER 2024-10-03 13:24 | Outpatient (REF) | payer OTHER, SELFPAY ==
[2024-10-03 16:55] LABS: Hematocrit 26.8 % (42.0-52.0); Hemoglobin 8.8 g/dl (14.0-18.0); Mean Corpuscular HGB Conc 32.8 g/dl (31.0-36.0); Mean Corpuscular Hemoglobin 30.9 pg (27.0-33.0); Mean Platelet Volume 10.3 fL (9.4-12.4); Platelet Count 196 X10*3/uL (160-400); Red Blood Count 2.85 X10*6/uL (4.60-5.80); Red Cell Distribution Width 11.5 % (11.0-16.0)
[2024-10-03 16:57] LABS: Appearance Urine Clear; Color Urine Yellow; Glucose Urine UA 250 mg/dL (Negative); Leukocyte Esterase Urine Negative (Negative); Nitrite Urine Negative (Negative); PH 5.5 (5.0-9.0); UMIC TRIGGER UA YES; Urine Blood Moderate (2+) (Negative); Urine Ketones Trace mg/dL (Negative); Urine Protein >=1000 (4+) mg/dL (Neg-Trace)
[2024-10-03 17:00] LABS: Estimated Average Glucose 148 mg/dL; Hemoglobin A1C 118.9641 umol/L; Hemoglobin A1c % 6.8 % (<6.0)
[2024-10-03 17:07] LABS: Bacteria Urine None Seen (None Seen); Granular Casts Urine Present; Squamous Epithelial Cell Urine 0-2 /HPF (0-2); WBC Urine 0-5 /HPF (0-5)
[2024-10-03 17:35] LABS: Creatinine Urine 120.25 mg/dL
[2024-10-03 17:39] LABS: TSH reflex Free T4 1.51 uIU/mL (0.32-4.0)
[2024-10-03 17:54] LABS: Anion Gap 12 (12-20); Blood Urea Nitrogen 48 mg/dL (9-16); C Reactive Protein 0.67 mg/dL (< or = 0.50); Calcium 8.7 mg/dL (8.4-10.2); Carbon Dioxide 25 mmol/L (22-29); Chloride 106 mmol/L (96-108); Estimated Glomerular Filt Rate 13; Glucose Random 125 mg/dL (60-115); Sodium 138 mmol/L (135-145)
[2024-10-03 18:02] LABS: Total Protein Urine Random 625 mg/dL (<12)
[2024-10-09 20:49] LABS: Class Almond 0; Class Brazil Nut 0; Class Cashew 0; Class Codfish 0; Class Cow's Milk 0; Class Egg white 0; Class Hazelnut 0; Class Macadamia Nut 0; Class Peanut 0; Class Salmon 0; Class Scallop 0; Class Sesame Seed 0; Class Shrimp 0; Class Soybean 0; Class Tuna 0; Class Walnut 0; Class Wheat 0; F001-IgE Egg White <0.10 kU/L; F002-IgE Milk <0.10 kU/L; F003-IgE Codfish <0.10 kU/L; F004-IgE Wheat <0.10 kU/L; F010-IgE Sesame Seed <0.10 kU/L; F013-IgE Peanut <0.10 kU/L; F014-IgE Soybean <0.10 kU/L; F017-IgE Hazelnut (Filbert) <0.10 kU/L; F018-IgE Brazil Nut <0.10 kU/L; F020-IgE Almond <0.10 kU/L; F024-IgE Shrimp <0.10 kU/L; F040-IgE Tuna <0.10 kU/L; F041 IgE Salmon <0.10 kU/L; F202-IgE Cashew Nut <0.10 kU/L; F256-IgE Walnut <0.10 kU/L; F338-IgE Scallop <0.10 kU/L; F345-IgE Macadmia Nut <0.10 kU/L
== END 2024-10-03 13:25 | disposition home or self-care (01) ==
LOC: HO.LAB 13:24
PROVIDERS: Internal Medicine Hypertension Specialist; PCP Physician Assistant Medical; Visit Provider Nurse Practitioner
DX: Z01.818 Encounter for other preprocedural examination (principal); N05.9 Unspecified nephritic syndrome with unspecified morphologic changes; D12.6 Benign neoplasm of colon, unspecified; K59.04 Chronic idiopathic constipation; R19.7 Diarrhea, unspecified; R10.10 Upper abdominal pain, unspecified; N18.9 Chronic kidney disease, unspecified; Z91.09 Other allergy status, other than to drugs and biological substances; E11.9 Type 2 diabetes mellitus without complications
CPT/HCPCS: 36415; 80048; 81001; 82570; 83036; 84156; 84443; 85027; 86003; 86140; 99212

== ENCOUNTER 2024-10-08 11:31 | Outpatient (REF) | payer OTHER, SELFPAY ==
--- OUTSIDE RECORDS SUMMARY | 2024-10-08 13:31 | XMS_ITS | Clinical Summary ---
Author Organization [facility] Address [address] [place] [address] Care Team Providers Care Wire Mesh Filter Fabricator Name Role Phone Anel Padgett [facility] Primary Care Provider [phone] Source Comments PLEASE NOTE, if this patient [...] injectionIndicatio ns:Diabetes mellitus type 2 in nonobese ([facility]) Inject w/meals 70-100 NO u 101- 140 2 U, 141-180 3 U, 181-220 4 U, 221-260 6 U, 261-300 8 U, 301-350 10 U,351-400 12 ,>400 callMD 10 mL 5 7 Active insulin needles 31 gauge x 1/4 Indications:Di abetes mellitus type 2 in nonobese ([facility]) DX.E11.65 insulin injection 4 times a day 100 Each 7 Active lancetsIndications :Diabetes mellitus type 2 in nonobese ([facility]) DX E11.65 . Blood sugar check 4 times a day 100 Each 7 Active aspirin [address] tabletIndications: Diabetes mellitus type 2 in nonobese ([facility]) Take 1 Tab by mouth once daily 8 Active insulin glargine (LANTUS) 100 unit/mL injectionIndicatio ns:Diabetes mellitus type 2 in nonobese ([facility]) Inject 60 Units into the skin once daily 10 mL 5 8 Active linagliptin (TRADJENTA) 5 mg tabIndications:Ava rigobertoes mellitus type 2 in nonobese ([facility]) Take 1 Tab by mouth once daily 30 Tab 3 8 Active FREESTYLE LITE STRIPS stripsIndications: Diabetes mellitus type 2 in nonobese ([facility]) USE TO TEST BLOOD SUGAR THREE [...] mcg/actuation nasal sprayIndications:N che[place] congestion Place 1 [place] in both nostrils once daily for 14 [...] 01/20/2017 Overview (01/20/2017): Colonoscopy done 11/11/14 at [facility] - small hiatus hernia with no evidence of reflux esophagitis , normal colonoscopy Endoscopy also done - DX superficial gastritis Diverticulitis of large intestine 04/05/2015 Overview (04/05/2015): Seen at [facility] 03/25/2015 for abdominal pain for 3 days. Treated with Levaquin,and flagyl . CT Scan : Wall thickening with Inflammatory changes surrounding junction of descending/sigmoid colon. Pt has history of Diverticulitis S/P Partial colon Resection 2-3 years ago. History of Negative Colonoscopy early 2014 at [facility] Facet arthropathy, lumbar 02/03/2015 Overview (02/03/2015): Sees [place] spine. X-ray 12/05/2014 L4-L5 facet arthropathy. Undergoing PT. X- Ray hip normal H/O hypogonadism 01/19/2015 Overview (01/19/2015): Sees Urologist S/P TURP 02/25/2014 Overview (07/01/2017): Done 10/21/2013. Sees Urologist Hood Elizondo 05/25/17 - No show to Urology F/U DM type 2 (diabetes mellitus, type 2) ([facility]) 07/28/2013 Overview (09/10/2013): Pt sees Endo at [facility] Hyperlipidemia 07/28/2013 GERD (gastroesophageal reflux disease) 4 DM neuropathy, painful ([facility]) 07/28/2013 Diabetic eye exam ([facility]) 06/27/2013 Overview (06/27/2013): Pt has an [...] 106 05/14/2024 9:18 AM EST Temperature 36.8 C (98.2 F) 05/14/2024 9:18 AM EST Respiratory Rate 17 05/14/2024 9:18 AM EST [...] Colonoscopy 06/05/2024 06/05/2014 Colorectal Cancer Screening 06/05/2024 [id number] ( season) 2024 01/23/2024, 01/31/2022, 04/02/2021, Additional [...] complication, with long-term current use of insulin ([facility]) Hypertension, unspecified type LIPID PANEL Routine 05/06/2024 1:56 PM EST Encounter to establish care Controlled type 2 diabetes mellitus without complication, with long-term current use of insulin ([facility]) Hypertension, unspecified type MICROALBUMIN/CREATININ E RATIO, URINE, RANDOM Routine 05/06/2024 1:56 PM EST Encounter to establish care Controlled type 2 diabetes mellitus without complication, with long-term current use of insulin ([facility]) HGBA1C W/MPG Routine 05/06/2024 1:56 PM EST Encounter to establish care Controlled type 2 diabetes mellitus without complication, with long-term current use of insulin ([facility]) HEPATITIS A,B,C PANEL Routine 02/27/2017 11:10 [...] 3:00 AM EDT) 08/11/2024 3:00 AM EDT us Choh Provider Default SCAN OTHER ORDERS Final Re sult * IMAGING SCANNED DOCUMENT (07/08/2024 3:00 AM EDT) 07/08/2024 3:00 AM EDT Anel Padgett WIRE STITCHER OPERATOR SCAN IMAGING Final Result * (ABNORMAL) HGBA1C W/MPG (05/06/2024 1:56 PM EST) HEMOGLOBIN A1C 7.4(H) <5.7 % of total Hgb [facility] Comment: For someone without known diabetes, a [...] A1c for diagnosis of diabetes for children. MEAN PLASMA GLUCOSE 186 mg/dL (calc) [facility] Blood Blood / Unknown 05/06/2024 1 :56 PM EST 05/06/2024 1:56 PM EST Narrative [employer] - 05/08/2024 5:49 PM EST FASTING:NO Mary Osborne PA-C LAB - BLOOD DRAW Edited Res ult - Final [facility] [address] [address], [employer] [address] [address] * (ABNORMAL) MICROALBUMIN/CREATININE RATIO, URINE, RANDOM (05/06/2024 1:56 PM EST) CREATININE, RANDOM URINE 37 20 - 320 mg/dL [employer] [facility] MICROALBUMIN 147.9 mg/dL [employer] [facility] Comment: Verified by repeat analysis. Reference Range Not established MICROALBUMIN/CREA TININE RATIO, RANDOM URINE 3,997(H) <30 mg/g creat [employer] [facility] Comment: The ADA defines abnormalities in albumin excretion as follows: Albuminuria Category Result (mg/g creatinine) Normal to Mildly increased <30 Moderately increased 30-299 Severely increased > OR = 300 The ADA recommends that at least two of three specimens collected within a 3-6 month period be abnormal before considering a patient to be within a diagnostic category. Urine Urine specimen / Unknown 05/06/2024 1:56 PM EST 05/06/2024 1:56 PM EST Narrative [employer] [facility] - 05/08/2024 5:49 PM EST FASTING:NO Mary Osborne PA-C LAB URINE AMBULATORY Final Result [employer] [address] [address], [employer] [address] [address] * (ABNORMAL) LIPID PANEL (05/06/2024 1:56 PM EST) Pathologist [facility] CHOLESTEROL, TOTAL 122 <200 mg/dL [facility] HDL CHOLESTEROL 41 > OR = 40 mg/dL [facility] TRIGLYCERIDES 174(H) <150 mg/dL [facility] LDL-CHOLESTEROL 56 99 mg/dL (calc) [facility] [facility] Comment: Reference range: <100 Desirable range <100 mg/dL for primary prevention; <70 mg/dL for patients with CHD or diabetic patients with > or = 2 CHD risk factors. LDL-C is now calculated using the Annalise calculation, which is a validated novel method providing better accuracy than the Friedewald equation in the estimation of LDL-C. Hola PHAN et al. KAUSHIK. 2013;310(19): 2299-2096 (http://education.Optony/faq/SQC844) CHOL/HDLC RATIO 3.0 <5.0 (calc) [employer] [facility] NON-HDL CHOLESTEROL 81 <130 mg/dL (calc) [employer] [facility] Comment: For patients with diabetes plus 1 major ASCVD risk factor, treating to a non-HDL-C goal of <100 mg/dL (LDL-C of <70 mg/dL) is considered a therapeutic option. Blood Blood / Unknown 05/06/2024 1 :56 PM EST 05/06/2024 1:56 PM EST Narrative [employer] [facility] - 05/08/2024 5:49 PM EST FASTING:NO Mary Osborne PA-C LAB - BLOOD DRAW Final Resu lt [employer] [address] [address], [employer] [address] [address] * (ABNORMAL) COMPREHENSIVE METABOLIC PANEL (05/06/2024 1:56 PM EST) GLUCOSE 329(H) 65 - 139 mg/dL [facility] Comment: Non-fasting reference interval UREA NITROGEN (BUN) 39(H) 7 - 25 mg/dL [facility] CREATININE (blood) 2.99(H) 0.70 - 1.35 mg/dL [employer] EGFR 22(L) > OR = 60 mL/min/1. 73m2 [facility] [facility] BUN/CREATININE RATIO 13 6 - 22 (calc) [facility] SODIUM 133(L) 135 - 146 mmol/L [facility] POTASSIUM 4.4 3.5 - 5.3 mmol/L [facility] CHLORIDE 101 98 - 110 mmol/L [facility] CARBON DIOXIDE 22 20 - 32 mmol/L [facility] CALCIUM 8.4(L) 8.6 - 10.3 mg/dL [facility] PROTEIN, TOTAL 5.8(L) 6.1 - 8.1 g/dL [facility] ALBUMIN 3.2(L) 3.6 - 5.1 g/dL [facility] GLOBULIN 2.6 1.9 - 3.7 g/dL (calc) [facility] ALBUMIN/GLOBULI N RATIO 1.2 1.0 - 2.5 (calc) [facility] BILIRUBIN, TOTAL 0.3 0.2 - 1.2 mg/dL [facility] ALKALINE PHOSPHATASE 181(H) 35 - 144 U/L [employer] AST 25 10 - 35 U/L [facility] ALT 26 9 - 46 U/L [facility] Blood Blood / Unknown 05/06/2024 1 :56 PM EST 05/06/2024 1:56 PM EST Narrative [employer] [facility] - 05/08/2024 5:49 PM EST FASTING:NO Mary Osborne PA-C LAB - BLOOD DRAW Edited Res ult - Final [employer] [address] [address], [employer] [address] [address] * HEPATITIS A,B,C PANEL (02/27/2017 11:10 AM EST) HEPATITIS B SURFACE ANTIBODY NEGATIVE NEGATIVE [facility] HEPATITIS B SURFACE ANTIGEN NEGATIVE NEGATIVE [facility] Comment: Over the counter supplements containing high doses of biotin may interfere with this assay. If interference is suspected, patients shoud be retested after refraining from biotin supplements for 72 hours. HEPATITIS C VIRUS DIAGNOSTIC NEGATIVE NEGATIVE [facility] HEPATITIS B CORE ANTIBODY NEGATIVE NEGATIVE [facility] HEPATITIS A ANTIBODY TOTAL NEGATIVE NEGATIVE [facility] Comment: Over the counter supplements containing high doses of biotin may interfere with this assay. If interference is suspected, patients shoud be retested after refraining from biotin supplements for 72 hours. Blood specimen (specimen) Blood / Unknown 02/27/2017 11:10 AM EST 02/27/2017 11:33 AM EST Narrative [facility] - 02/27/2017 4:19 PM EST [employer] [address] [place] [address] [place] [id number] ORD# [id number] Gregor Ruiz WIRE STITCHER OPERATOR LAB - BLOOD DRAW Edited Result - Final [facility] [address] [place] [address], from Last 3 Months or Most Recently Relevant to Health Maintenance Insurance [facility] [place] [address] [place] [address] [facility] Care Teams Wire Mesh Filter Fabricator Relationship Specialty Start Date End Date Gurung, Anel, WIRE STITCHER OPERATOR [address] [place] [address] PCP - General Internal Medicine 09/05/21
[2024-10-08 19:09] LABS: Anion Gap 12 (12-20); Blood Urea Nitrogen 44 mg/dL (9-16); Calcium 8.1 mg/dL (8.4-10.2); Carbon Dioxide 24 mmol/L (22-29); Chloride 104 mmol/L (96-108); Estimated Glomerular Filt Rate 14; Glucose Random 285 mg/dL (60-115); Potassium 5.6 mmol/L (3.3-5.1); Sodium 134 mmol/L (135-145)
== END 2024-10-08 11:32 | disposition home or self-care (01) ==
LOC: HO.HKASLDS 11:31
PROVIDERS: Nurse Practitioner Family; Visit Provider Internal Medicine Hypertension Specialist
DX: N18.30 Chronic kidney disease, stage 3 unspecified (principal)
CPT/HCPCS: 36415; 80048

== ENCOUNTER 2024-10-15 09:17 | Outpatient (AMB) | payer OTHER, SELFPAY ==
--- NOTE | 2024-10-15 09:19 | HO.NEPHOV ---
Vital Signs 10/15/24 09:20 Height 5 ft 9 in Weight 189 lb BMI 27.9 BP 156/80 H Blood Pressure Location Lt brachial Position Sitting Pulse 79 Pulse Source Pulse Oximeter Pulse Oximetry (%) 99 Oxygen Delivery Method Room Air Intake Visit Reasons: 6wk follow-up w/labs/ CONF Site Safety Representative Required: No Accompanied by: Daughter Allergies lisinopril Allergy (Unknown, Verified 10/15/24 09:22) cough Medication List - Last Reconciled 10/15/24 by Tera Aguirre MD albuterol sulfate 90 mcg/actuation inhalation atorvastatin 80 mg PO QDAY bisacodyl (Dulcolax (bisacodyl)) 10 mg (2 x 5 mg) PO BEDTIME 2 days blood sugar diagnostic (FreeStyle Lite Strips) As directed four times a day cholecalciferol (vitamin D3) 50 mcg PO DAILY clonidine HCl 0.1 mg PO BID [insulin 62 units intradermal .after meals] insulin lispro (Humalog U-100 Insulin) 22 units subcut .before meals magnesium oxide 420 mg PO QDAY PRN peg 3350-electrolytes 236-22.74-6.74 -5.86 gram (Golytely) 240 mL PO Q10M 1 day pen needle, diabetic (BD Ultra-Fine Yuliana Pen Needle) As directed four times a day sodium polystyrene sulfonate 15 grams PO DAILY tamsulosin mg PO DAILY trospium 20 mg PO BID valsartan 320 mg PO DAILY HPI Comments Details: 69 yr old man with long standing h/o HTN And DM for more than 5 years referred for CKD Creatinine was 1.2 in 2020. Creatinine has bumped up to 1.7 in June Currently on Bumex 0.5mg along with VAlsartan 320 mg 01/02/2024. 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 03/05/24 c/o Itching and rash x 3-4 weeks ;Farxiga was started 6 weeks ago. cr upto 2.98! 04/09/24 Still with itching; Off Farxiga; GAined 4 lbs ; c/o edema 06/11/24 Still has itching Has been taking Hydralazine QD instead of TID Lost 10-14 lbs with Bumex 08/06/24 No improving in Itching 09/03/24 69-year-old male seen for Chronic Kidney Disease and associated symptoms. He experiences persistent pruritus involving his eyes, scalp, arms, and legs, possibly linked to medication adjustments since the introduction of hydralazine. Attempts to modify medications have thus far provided insufficient relief for his symptoms. The patient also has a history of hypertension and diabetes mellitus with suboptimal glycemic control; his recent blood glucose was recorded at 238 mg/dL. He correlates dietary habits with blood sugar fluctuations and has been attempting to improve these. Concurrently, the patient reports peripheral edema with associated discoloration. His CKD is advancing, with a current kidney function level at an approximate GFR of 16%, a reduction from a previous measurement of 19%. The patient has brother on dialysis; his brother recently began treatment due to similar underlying conditions. These factors contribute to the patient?s concern about future renal interventions. 10/15/24 The patient is a 69-year-old male presenting with hypertension, chronic kidney disease, and anemia. Hypertension has been a persistent issue, with recent blood pressure readings of 156/80 mmHg, despite multiple antihypertensive medications including valsartan and clonidine. Previous trials with amlodipine and hydralazine were discontinued due to adverse effects such as edema and pruritus. Chronic kidney disease is attributed to long-standing diabetes, with current kidney function at approximately 14%. Anemia is suspected to be multifactorial, potentially due to gastrointestinal blood loss and decreased erythropoietin production from renal impairment. A stool test and colonoscopy are planned to investigate potential gastrointestinal bleeding. The patient will receive erythropoietin injections to address anemia related to renal insufficiency. [facility] Medical History (Updated 10/09/24 @ 11:45 by Deanne Richards, WILLIAMS, COFFEE SAMPLER-) CKD (chronic kidney disease) Diabetes type 2, uncontrolled Essential hypertension Hypertriglyceridemia Hyperlipidemia LDL goal <100 Type 2 diabetes mellitus with diabetic polyneuropathy Cirrhosis of liver GERD (gastroesophageal reflux disease) Tubular adenoma of colon Chronic idiopathic constipation Surgical History History of penile implant History of gastric surgery H/O esophagogastroduodenoscopy Hx of colonoscopy (~10/2014) Family History Father No problems noted. Mother Esophageal cancer Maternal Grandfather Prostate cancer Diabetes Maternal Grandmother CVD (cardiovascular disease) Daughter Tubular adenoma Social History Household Members: Spouse Alcohol intake: current Alcohol intake frequency: former alcohol drinker Patient Tobacco Use Status: Former Tobacco user Physical Exam Vital Signs: Last Vital Signs Pulse 79 10/15/24 09:20 BP 156/80 H 10/15/24 09:20 Pulse Ox 99 10/15/24 09:20 Oxygen Delivery Method Room Air 10/15/24 09:20 BMI result Body Mass Index 27.9 Comfortable Neck supple no JVD. Lungs entry equal no rales. Heart S1-S2 heard no gallop or rub. Abdomen soft nontender. Neuro alert awake oriented. No asterixis. Extremities 1 to 2 + edema. Results Reviewed Nephrology Results: Hgb, (14.0-18.0) 8.8 g/dl L 10/03/24 WBC, (4.8-10.8) 6.0 X10*3/uL 10/03/24 Plt Count, (160-400) 196 X10*3/uL 10/03/24 Sodium, (135-145) 134 mmol/L L 10/08/24 Potassium, (3.3-5.1) 5.6 mmol/L H 10/08/24 Chloride, (96-108) 104 mmol/L 10/08/24 Carbon Dioxide, (22-29) 24 mmol/L 10/08/24 BUN, (9-16) 44 mg/dL H 10/08/24 Creatinine, (0.5-1.4) 4.32 mg/dL H* 10/08/24 Calcium, (8.4-10.2) 8.1 mg/dL L Δ 10/08/24 PTH Intact, (8.7-77.1) 352.7 pg/mL H 09/02/24 Urine Protein, (Neg-Trace) >=1000 (4+) mg/dL H 10/03/24 Urine Creatinine 120.25 mg/dL 10/03/24 Renal US 09/28/23 Assessment & Plan Assessment & Plan (1) CKD (chronic kidney disease): Comment: Kidney biopsy on 12/18/2023 revealed nodular mesangial/diabetic glomerulosclerosis. Moderately active interstitial nephritis with eosinophils. Moderate chronic changes including global glomerulosclerosis 35%, tubular atrophy/interstitial fibrosis 30%. Vascular sclerosis moderate with focal hyalinosis. Code(s): N18.9 - Chronic kidney disease, unspecified Category: Medical (2) BPH w urinary obs/LUTS: Code(s): N40.1 - Benign prostatic hyperplasia with lower urinary tract symptoms; N13.8 - Other obstructive and reflux uropathy Category: Medical (3) Essential hypertension: Code(s): I10 - Essential (primary) hypertension Category: Medical (4) Type 2 diabetes mellitus with diabetic polyneuropathy: Code(s): E11.42 - Type 2 diabetes mellitus with diabetic polyneuropathy Category: Medical (5) Cirrhosis of liver: Comment: 2018 hepatitis a B and C screens negative Code(s): K74.60 - Unspecified cirrhosis of liver Category: Medical (6) Chronic kidney disease (CKD) stage G5/A1, glomerular filtration rate (GFR) less than or equal to 15 mL/min/1.73 square meter and albuminuria creatinine ratio less than 30 mg/g: Comment: Kidney biopsy on 12/18/2023 revealed nodular mesangial/diabetic glomerulosclerosis. Moderately active interstitial nephritis with eosinophils. Moderate chronic changes including global glomerulosclerosis 35%, tubular atrophy/interstitial fibrosis 30%. Vascular sclerosis moderate with focal hyalinosis. Code(s): N18.5 - Chronic kidney disease, stage 5 Category: Medical (7) Tubular adenoma of colon: Comment: 2021 scope equals large TA repeated 3 years aeb Code(s): D12.6 - Benign neoplasm of colon, unspecified Category: Medical (8) Chronic idiopathic constipation: Comment: Now managed on Flax Code(s): K59.04 - Chronic idiopathic constipation Category: Medical (9) Diarrhea: Code(s): R19.7 - Diarrhea, unspecified Category: Medical (10) Upper abdominal pain: Code(s): R10.10 - Upper abdominal pain, unspecified Category: Medical (11) Pre-op examination: Code(s): Z01.818 - Encounter for other preprocedural examination Category: Medical Plan . 69 yr old man with CKD in a setting of DM and HTN Diabetic nephropathy by biopsy No evidence of obstruction based on recent imaging Will benefit from SGLT-2 inhibitors Added Farxiga 5 mg daily ( dec 2023) Was on Hold due to itching Willing to try again- will restart today 10/15/24 Goal is to slow the progression of renal disease Maintain BP < 130/80 and A1c < 7% Avoid nephrotoxins including NSAIDS HTN BP sub optimal but better controlled Keep current meds Treated with a course of Prednisone - No improvement Rash resolved Hydroxyzine 10 mg PRN- no improvement in itching-Will DC 10/15/24 I discussed with the patient the importance of managing hypertension with the current medications and monitoring for any side effects. We reviewed the need for dietary changes to manage potassium levels and started Lokelma 5 gm PO weekly The plan for addressing anemia includes erythropoietin injections and a gastrointestinal workup to rule out bleeding. I advised the patient to meet with the dialysis team to explore future dialysis options, given the current kidney function status. Restart Farxiga 5 mg QD Orders: Orders Complete Blood Count no Diff 4 Weeks N18.5 - Chronic kidney disease, stage 5 Ferritin 4 Weeks N18.5 - Chronic kidney disease, stage 5 Basic Metabolic Panel 4 Weeks N18.5 - Chronic kidney disease, stage 5 IRON PROFILE 4 Weeks N18.5 - Chronic kidney disease, stage 5 Medications: New sodium zirconium cyclosilicate (Lokelma) 5 grams PO .weekly 11 ea 1RF dapagliflozin propanediol (Farxiga) 5 mg PO DAILY 30 tabs 1RF Discontinued sodium polystyrene sulfonate Discontinued Reason: Doctor's Order 15 grams PO DAILY 15 grams 0RF E87.5 - Hyperkalemia Coding Level of Care Code Est Pt Level 4 (49738) Diagnoses CKD (chronic kidney disease) N18.9 BPH w urinary obs/LUTS N40.1; N13.8 Essential hypertension I10 Type 2 diabetes mellitus with diabetic polyneuropathy E11.42 Cirrhosis of liver K74.60 Chronic kidney disease (CKD) stage G5/A1, glomerular filtration rate (GFR) less than or equal to 15 mL/min/1.73 square meter and albuminuria creatinine ratio less than 30 mg/g N18.5 Tubular adenoma of colon D12.6 Chronic idiopathic constipation K59.04 Diarrhea R19.7 Upper abdominal pain R10.10 Pre-op examination Z01.818
[2024-10-15 09:20] VITALS: BP 156/80; PULSE 79; O2SAT 99; BMI 27.9
--- OUTSIDE RECORDS SUMMARY | 2024-10-15 10:08 | XMS_ITS | Clinical Summary ---
Author Organization [facility] Address [address] [place] [address] Care Team Providers Care Continuous Mining Operator Name Role Phone Anel Padgett [facility] Primary Care Provider [phone] Source Comments PLEASE NOTE, if this patient [...] injectionIndicatio ns:Diabetes mellitus type 2 in nonobese ([facility]) Inject w/meals 70-100 NO u 101- 140 2 U, 141-180 3 U, 181-220 4 U, 221-260 6 U, 261-300 8 U, 301-350 10 U,351-400 12 ,>400 callMD 10 mL 5 7 Active insulin needles 31 gauge x 1/4 Indications:Di abetes mellitus type 2 in nonobese ([facility]) DX.E11.65 insulin injection 4 times a day 100 Each 7 Active lancetsIndications :Diabetes mellitus type 2 in nonobese ([facility]) DX E11.65 . Blood sugar check 4 times a day 100 Each 7 Active aspirin [address] tabletIndications: Diabetes mellitus type 2 in nonobese ([facility]) Take 1 Tab by mouth once daily 8 Active insulin glargine (LANTUS) 100 unit/mL injectionIndicatio ns:Diabetes mellitus type 2 in nonobese ([facility]) Inject 60 Units into the skin once daily 10 mL 5 8 Active linagliptin (TRADJENTA) 5 mg tabIndications:Ava rigobertoes mellitus type 2 in nonobese ([facility]) Take 1 Tab by mouth once daily 30 Tab 3 8 Active FREESTYLE LITE STRIPS stripsIndications: Diabetes mellitus type 2 in nonobese ([facility]) USE TO TEST BLOOD SUGAR THREE [...] mcg/actuation nasal sprayIndications:N [place] congestion Place [employer] in both nostrils once daily for 14 [...] 01/20/2017 Overview (01/20/2017): Colonoscopy done 11/11/14 at [facility] - small hiatus hernia with no evidence of reflux esophagitis , normal colonoscopy Endoscopy also done - DX superficial gastritis Diverticulitis of large intestine 04/05/2015 Overview (04/05/2015): Seen at [facility] 03/25/2015 for abdominal pain for 3 days. Treated with Levaquin,and flagyl . CT Scan : Wall thickening with Inflammatory changes surrounding junction of descending/sigmoid colon. Pt has history of Diverticulitis S/P Partial colon Resection 2-3 years ago. History of Negative Colonoscopy early 2014 at [facility] Facet arthropathy, lumbar 02/03/2015 Overview (02/03/2015): Sees [facility]. X-ray 12/05/2014 L4-L5 facet arthropathy. Undergoing PT. X- Ray hip normal H/O hypogonadism 01/19/2015 Overview (01/19/2015): Sees Urologist S/P TURP 02/25/2014 Overview (07/01/2017): Done 10/21/2013. Sees Urologist [facility] 05/25/17 - No show to Urology F/U DM type 2 (diabetes mellitus, type 2) ([facility]) 07/28/2013 Overview (09/10/2013): Pt sees Endo at [facility] Hyperlipidemia 07/28/2013 GERD (gastroesophageal reflux disease) 4 DM neuropathy, painful ([facility]) 07/28/2013 Diabetic eye exam ([facility]) 06/27/2013 Overview (06/27/2013): Pt has an [...] Colonoscopy 06/05/2024 06/05/2014 Colorectal Cancer Screening 06/05/2024 [id number] ( season) 2024 01/23/2024, 01/31/2022, 04/02/2021, Additional history exists Hemoglobin A1c 11/03/2024 05/06/2024, 07/22, 02/27/2017, Additional history exists Lipid Screening 05/06/2025 05/06/2024, 07/22, 09/01/2016, Additional history exists Serum Creatinine 05/06/2025 05/06/2024, , 08/09/2017, Additional history exists Urine Albumin Creatinine Rat io Screening 05/06/2025 05/06/2024, 08/09/2017, 09/01/2016, Additional history exists Imm-DTaP/Tdap/Td (4 - Td or Tdap) 07/27/2032 07/27/2022, 09/30/2014, 11/25/2010 Hepatitis C Screening Completed 02/27/2017 Imm-Pneumococcal 50+ Completed 07/27/2022, 07/22/2021, 12/07/2016, Additional history exists Imm-Influenza Completed 01/23/2024, 12/23, 03/15/2022, Additional history exists Alcohol and Drug Screen Completed 05/06/19, 01/15/2017, 09/30/2014 Depression Annual Screen Completed 05/06/2024 Procedures Procedure Name Priority Date/Time Associated Diagnosis Comments REFERRAL SCANNED DOCUMENT 08/29/2024 3:00 AM EDT HEALTH HISTORY SCANNED DOCUMENT 08/11/2024 3:00 AM EDT REFERRAL SCANNED DOCUMENT 08/08/2024 3:00 AM EDT COMPREHENSIVE METABOLIC PANEL Routine 05/06/2024 1:56 PM EST Encounter to establish care Controlled type 2 diabetes mellitus without complication, with long-term current use of insulin ([facility]) Hypertension, unspecified type LIPID PANEL Routine 05/06/2024 1:56 PM EST Encounter to establish care Controlled type 2 diabetes mellitus without complication, with long-term current use of insulin ([facility]) Hypertension, unspecified type MICROALBUMIN/CREATININ E RATIO, URINE, RANDOM Routine 05/06/2024 1:56 PM EST Encounter to establish care Controlled type 2 diabetes mellitus without complication, with long-term current use of insulin ([facility]) HGBA1C W/MPG Routine 05/06/2024 1:56 PM EST Encounter to establish care Controlled type 2 diabetes mellitus without complication, with long-term current use of insulin ([facility]) HEPATITIS A,B,C PANEL Routine 02/27/2017 11:10 AM EST Multiple joint pain from Last 3 Months or Most Recently Relevant to Health Maintenance Results * REFERRAL SCANNED DOCUMENT (08/29/2024 3:00 AM EDT) Only the most recent of2 resultswithin the time period is included. 08/29/2024 3:00 AM EDT [facility] Provider Default SCAN REFERRAL Final Resu lt * HEALTH HISTORY SCANNED DOCUMENT (08/11/2024 3:00 AM EDT) 08/11/2024 3:00 AM EDT [facility] Provider Default SCAN OTHER ORDERS Final Re sult * (ABNORMAL) HGBA1C W/MPG (05/06/2024 1:56 PM EST) HEMOGLOBIN A1C 7.4(H) <5.7 % of total Hgb [facility] Comment: For someone without known diabetes, a [...] children. MEAN PLASMA GLUCOSE 186 mg/dL (calc) [facility] Blood Blood / Unknown 05/06/2024 1 :56 PM EST 05/06/2024 1:56 PM EST Narrative [facility] - 05/08/2024 5:49 PM EST FASTING:NO Mary Osborne PA-C LAB - BLOOD DRAW Edited Res ult - Final [facility] [address] [place] [id number], [facility] [address] [place] [phone] * (ABNORMAL) MICROALBUMIN/CREATININE RATIO, URINE, RANDOM (05/06/2024 1:56 PM EST) CREATININE, RANDOM URINE 37 20 - 320 mg/dL [facility] MICROALBUMIN 147.9 mg/dL [facility] Comment: Verified by repeat analysis. Reference Range Not established MICROALBUMIN/CREA TININE RATIO, RANDOM URINE 3,997(H) <30 mg/g creat [facility] Comment: The ADA defines abnormalities in albumin [...] PM EST 05/06/2024 1:56 PM EST Narrative [facility] - 05/08/2024 5:49 PM EST FASTING:NO Mary Osborne PA-C LAB URINE AMBULATORY Final Result [facility] [address] [address], [facility] [address] [phone] * (ABNORMAL) LIPID PANEL (05/06/2024 1:56 PM EST) CHOLESTEROL, TOTAL 122 <200 mg/dL [facility] HDL CHOLESTEROL 41 > OR = 40 mg/dL [facility] TRIGLYCERIDES 174(H) <150 mg/dL [facility] LDL-CHOLESTEROL 56 99 mg/dL (calc) [facility] Comment: Reference range: <100 Desirable range <100 mg/dL for primary prevention; <70 mg/dL for patients with CHD or diabetic patients with > or = 2 CHD risk factors. LDL-C is now calculated using the Hola-Jorge calculation, which is a validated novel method providing better accuracy than the Friedewald equation in the estimation of LDL-C. Hola SS et al. KAUSHIK. 2013;310(19): 7082-7220 (http://education.dotHIV/faq/EUK638) CHOL/HDLC RATIO 3.0 <5.0 (calc) [facility] NON-HDL CHOLESTEROL 81 <130 mg/dL (calc) [facility] Comment: For patients with diabetes plus 1 major ASCVD risk factor, treating to a non-HDL-C goal of <100 mg/dL (LDL-C of <70 mg/dL) is considered a therapeutic option. Blood Blood / Unknown 05/06/2024 1 :56 PM EST 05/06/2024 1:56 PM EST Narrative [facility] - 05/08/2024 5:49 PM EST FASTING:NO us Mary Osborne PA-C LAB - BLOOD DRAW Final Resu lt [facility] [address] [address], [facility] [address] [place] [address] * (ABNORMAL) COMPREHENSIVE METABOLIC PANEL (05/06/2024 1:56 PM EST) GLUCOSE 329(H) 65 - 139 mg/dL [facility] Comment: Non-fasting reference interval UREA NITROGEN (BUN) 39(H) 7 - 25 mg/dL [facility] CREATININE (blood) 2.99(H) 0.70 - 1.35 mg/dL [facility] EGFR 22(L) > OR = 60 mL/min/1. 73m2 [facility] BUN/CREATININE RATIO 13 6 - 22 (calc) [facility] SODIUM 133(L) 135 - 146 mmol/L [facility] POTASSIUM 4.4 3.5 - 5.3 mmol/L [facility] CHLORIDE 101 98 - 110 mmol/L [facility] CARBON DIOXIDE 22 20 - 32 mmol/L [facility] CALCIUM 8.4(L) 8.6 - 10.3 mg/dL [facility] PROTEIN, TOTAL 5.8(L) 6.1 - 8.1 g/dL [facility] ALBUMIN 3.2(L) 3.6 - 5.1 g/dL [facility] GLOBULIN 2.6 1.9 - 3.7 g/dL (calc) [facility] ALBUMIN/GLOBULI N RATIO 1.2 1.0 - 2.5 (calc) [facility] BILIRUBIN, TOTAL 0.3 0.2 - 1.2 mg/dL [facility] ALKALINE PHOSPHATASE 181(H) 35 - 144 U/L [facility] AST 25 10 - 35 U/L [facility] ALT 26 9 - 46 U/L [facility] Blood Blood / Unknown 05/06/2024 1 :56 PM EST 05/06/2024 1:56 PM EST Narrative [facility] - 05/08/2024 5:49 PM EST FASTING:NO Mary Osborne PA-C LAB - BLOOD DRAW Edited Res ult - Final [facility] [address] [address], [facility] [address] [place] [address] * HEPATITIS A,B,C PANEL (02/27/2017 11:10 AM EST) HEPATITIS B SURFACE ANTIBODY NEGATIVE NEGATIVE [facility] HEPATITIS B SURFACE ANTIGEN NEGATIVE NEGATIVE [facility] Comment: Over the counter supplements containing high doses of biotin may interfere with this assay. If interference is suspected, patients shoud be retested after refraining from biotin supplements for 72 hours. HEPATITIS C VIRUS DIAGNOSTIC NEGATIVE NEGATIVE [facility] HEPATITIS B CORE ANTIBODY NEGATIVE NEGATIVE [facility] HEPATITIS A ANTIBODY TOTAL NEGATIVE NEGATIVE [facility] Comment: Over the counter supplements containing high doses of biotin may interfere with this assay. If interference is suspected, patients shoud be retested after refraining from biotin supplements for 72 hours. Blood specimen (specimen) Blood / Unknown 02/27/2017 11:10 AM EST 02/27/2017 11:33 AM EST Narrative [facility] - 02/27/2017 4:19 PM EST [facility] [address] [place] [id number] PT ID [id number] ORD# [id number] Gregor GRIFFITH LAB - BLOOD DRAW Edited Result - Final [facility] [address] [place] [address], from Last 3 Months or Most Recently Relevant to Health Maintenance Insurance [facility] [employer] [facility] [address] [place] [address] [facility] Care Teams Continuous Mining Operator Relationship Specialty Start Date End Date Anel Padgett FNP [address] [place] [address] PCP - General Internal Medicine 09/05/21
== END 2024-10-15 09:41 | disposition home or self-care (01) ==
LOC: HO.HKAS 09:17
PROVIDERS: PCP Physician Assistant Medical; Visit Provider Internal Medicine Hypertension Specialist
DX: N18.9 Chronic kidney disease, unspecified (principal); N40.1 Benign prostatic hyperplasia with lower urinary tract symptoms; N13.8 Other obstructive and reflux uropathy; I12.9 Hypertensive chronic kidney disease with stage 1 through stage 4 chronic kidney disease, or unspecified chronic kidney disease; E11.42 Type 2 diabetes mellitus with diabetic polyneuropathy; K74.60 Unspecified cirrhosis of liver; N18.5 Chronic kidney disease, stage 5; D12.6 Benign neoplasm of colon, unspecified; K59.04 Chronic idiopathic constipation; R19.7 Diarrhea, unspecified; R10.10 Upper abdominal pain, unspecified; Z01.818 Encounter for other preprocedural examination
CPT/HCPCS: 99214

== ENCOUNTER → 2024-10-15 09:17 | Outpatient (BNVA) | payer OTHER, SELFPAY | PROVIDERS: PCP Physician Assistant Medical; Visit Provider Internal Medicine Hypertension Specialist | DX: Z01.818 Encounter for other preprocedural examination (principal); N18.5 Chronic kidney disease, stage 5; N13.8 Other obstructive and reflux uropathy; I10 Essential (primary) hypertension; E11.42 Type 2 diabetes mellitus with diabetic polyneuropathy; K74.60 Unspecified cirrhosis of liver; D12.6 Benign neoplasm of colon, unspecified; K59.04 Chronic idiopathic constipation; R19.7 Diarrhea, unspecified; R10.10 Upper abdominal pain, unspecified | CPT/HCPCS: 99212 ==

== ENCOUNTER 2024-11-19 10:14 | Outpatient (REF) | payer OTHER, SELFPAY ==
--- OUTSIDE RECORDS SUMMARY | 2024-11-19 11:45 | XMS_ITS | Clinical Summary ---
Author Organization [facility] Address [address] [place] [address] Care Team Providers Care Manager Dairy Name Role Phone Anel Padgett [facility] Primary Care Provider [phone] Source Comments PLEASE NOTE, if this patient [...] injectionIndicatio ns:Diabetes mellitus type 2 in nonobese ([facility]) Inject w/meals 70-100 NO u 101- 140 2 U, 141-180 3 U, 181-220 4 U, 221-260 6 U, 261-300 8 U, 301-350 10 U,351-400 12 ,>400 callMD 10 mL 5 7 Active insulin needles 31 gauge x 1/4 Indications:Di abetes mellitus type 2 in nonobese ([facility]) DX.E11.65 insulin injection 4 times a day 100 Each 7 Active lancetsIndications :Diabetes mellitus type 2 in nonobese ([facility]) DX E11.65 . Blood sugar check 4 times a day 100 Each 7 Active aspirin [address] tabletIndications: Diabetes mellitus type 2 in nonobese ([facility]) Take 1 Tab by mouth once daily 8 Active insulin glargine (LANTUS) 100 unit/mL injectionIndicatio ns:Diabetes mellitus type 2 in nonobese ([facility]) Inject 60 Units into the skin once daily 10 mL 5 8 Active linagliptin (TRADJENTA) 5 mg tabIndications:Ava betes mellitus type 2 in nonobese ([facility]) Take 1 Tab by mouth once daily 30 Tab 3 8 Active FREESTYLE LITE STRIPS stripsIndications: Diabetes mellitus type 2 in nonobese ([facility]) USE TO TEST BLOOD SUGAR THREE [...] mcg/actuation nasal sprayIndications:N [place] congestion Place 1 Fedora in both nostrils once daily for 14 [...] 01/20/2017 Overview (01/20/2017): Colonoscopy done 11/11/14 at [facility] - small hiatus hernia with no evidence of reflux esophagitis , normal colonoscopy Endoscopy also done - DX superficial gastritis Diverticulitis of large intestine 04/05/2015 Overview (04/05/2015): Seen at [facility] 03/25/2015 for abdominal pain for 3 days. Treated with Levaquin,and flagyl . CT Scan : Wall thickening with Inflammatory changes surrounding junction of descending/sigmoid colon. Pt has history of Diverticulitis S/P Partial colon Resection 2-3 years ago. History of Negative Colonoscopy early 2014 at [facility] Facet arthropathy, lumbar 02/03/2015 Overview (02/03/2015): Sees spine. X-ray 12/05/2014 L4-L5 facet arthropathy. Undergoing PT. X- Ray hip normal H/O hypogonadism 01/19/2015 Overview (01/19/2015): Sees Urologist S/P TURP 02/25/2014 Overview (07/01/2017): Done 10/21/2013. Sees Urologist Hood Elizondo 05/25/17 - No show to Urology F/U DM type 2 (diabetes mellitus, type 2) ([facility]) 07/28/2013 Overview (09/10/2013): Pt sees Endo at [facility] Hyperlipidemia 07/28/2013 GERD (gastroesophageal reflux disease) 4 DM neuropathy, painful ([facility]) 4 Diabetic eye exam ([facility]) 06/27/2013 Overview (06/27/2013): Pt has an [...] 07/20/2020 ,06/29/2020 PNEUMOCOCCAL CONJUGATE PCV 2 0 (Prevnar 20) 07/27/2022 PNEUMOCOCCAL POLYSACCHARIDE PPV23 (Pneumovax 23) 07/22/2021,12/07/2016,09/30/2014 [...] e alcohol) Social Connections Answer Date Recorded How often do you feel lonely or isolated from th ose around you? 1 05/06/2024 Financial Resource Strain Answer Date R ecorded Hard to pay for: Food 1 05/06/2024 Stress Answer Date Recorded Do you feel these kinds of stress these days? 1 05/06/2024 Physical Activity Answer Date Recorded Physical Activity 0 02/27/2022 Food Insecurity Answer Date Recorded Hard to pay for: Food 1 05/06/2024 Transportation Needs Answer Date Record ed Hard to pay for: Transportation 1 05/06/2024 Housing Stability Answer Date Recorded What is your housing situation today? 1 05/06/2024 Safety and Environment Answer Date Naresh rded Safety 0 02/27/2022 Utilities Answer Date Recorded Hard to pay for: Utilities 1 05/06 Employment Answer Date Recorded Stress 0 01/09/2024 [...] Colonoscopy 06/05/2024 06/05/2014 Colorectal Cancer Screening 06/05/2024 [id number] ( season) 2024 01/23/2024, 01/31/2022, 04/02/2021, Additional history exists Hemoglobin A1c 11/03/2024 05/06/2024, 07/22, 02/27/2017, Additional history exists Imm-Influenza (#1) 2024 01/23/2024, 0 01/15/2023, 03/15/2022, Additional history exists Lipid Screening 05/06/2025 05/06/2024, 07/22, 09/01/2016, Additional history exists Serum Creatinine 05/06/2025 05/06/2024, , 08/09/2017, Additional history exists Urine Albumin Creatinine Rat io Screening 05/06/2025 05/06/2024, 08/09/2017, 09/01/2016, Additional history exists Imm-DTaP/Tdap/Td (4 - Td or Tdap) 07/27/2032 07/27/2022, 09/30/2014, 11/25/2010 Hepatitis C Screening Completed 02/27/2017 Imm-Pneumococcal 50+ Completed 07/27/2022, 07/22/2021, 12/07/2016, Additional history exists Alcohol and Drug Screen Completed 05/06/19, 01/15/2017, 09/30/2014 Depression Annual Screen Completed 05/06/2024 Procedures Procedure Name Priority Date/Time Associated Diagnosis Comments REFERRAL SCANNED DOCUMENT 08/29/2024 3:00 AM EDT COMPREHENSIVE METABOLIC PANEL Routine 05/06/2024 1:56 PM EST Encounter to establish care Controlled type 2 diabetes mellitus without complication, with long-term current use of insulin ([facility]) Hypertension, unspecified type LIPID PANEL Routine 05/06/2024 1:56 PM EST Encounter to establish care Controlled type 2 diabetes mellitus without complication, with long-term current use of insulin ([facility]) Hypertension, unspecified type MICROALBUMIN/CREATININ E RATIO, URINE, RANDOM Routine 05/06/2024 1:56 PM EST Encounter to establish care Controlled type 2 diabetes mellitus without complication, with long-term current use of insulin ([facility]) HGBA1C W/MPG Routine 05/06/2024 1:56 PM EST Encounter to establish care Controlled type 2 diabetes mellitus without complication, with long-term current use of insulin ([facility]) HEPATITIS A,B,C PANEL Routine 02/27/2017 11:10 AM EST Multiple joint pain from Last 3 Months or Most Recently Relevant to Health Maintenance Results * REFERRAL SCANNED DOCUMENT (08/29/2024 3:00 AM EDT) 08/29/2024 3:00 AM EDT [facility] Provider Default SCAN REFERRAL Final Resu lt * (ABNORMAL) HGBA1C W/MPG (05/06/2024 1:56 PM EST) HEMOGLOBIN A1C 7.4(H) <5.7 % of total Hgb [facility] Comment: For someone without known diabetes, a [...] children. MEAN PLASMA GLUCOSE 186 mg/dL (calc) [facility] Blood Blood / Unknown 05/06/2024 1 :56 PM EST 05/06/2024 1:56 PM EST Narrative [email or web address] - 05/08/2024 5:49 PM EST FASTING:NO Mary Osborne PA-C LAB - BLOOD DRAW Edited Res ult - Final [email or web address] [address] [place] [address], [facility] [address] [place] [id number] * (ABNORMAL) MICROALBUMIN/CREATININE RATIO, URINE, RANDOM (05/06/2024 1:56 PM EST) CREATININE, RANDOM URINE 37 20 - 320 mg/dL [facility] MICROALBUMIN 147.9 mg/dL [facility] Comment: Verified by repeat analysis. Reference Range Not established MICROALBUMIN/CREA TININE RATIO, RANDOM URINE 3,997(H) <30 mg/g creat [facility] Comment: The ADA defines abnormalities in albumin [...] PM EST 05/06/2024 1:56 PM EST Narrative [email or web address] - 05/08/2024 5:49 PM EST FASTING:NO Mary Osborne PA-C LAB URINE AMBULATORY Final Result [facility] [address] [address], [facility] [address] [address] * (ABNORMAL) LIPID PANEL (05/06/2024 1:56 PM EST) CHOLESTEROL, TOTAL 122 <200 mg/dL [facility] HDL CHOLESTEROL 41 > OR = 40 mg/dL [facility] TRIGLYCERIDES 174(H) <150 mg/dL [facility] LDL-CHOLESTEROL 56 99 mg/dL (calc) [facility] Comment: Reference range: <100 Desirable range <100 mg/dL for primary prevention; <70 mg/dL for patients with CHD or diabetic patients with > or = 2 CHD risk factors. LDL-C is now calculated using the Hola-Jorge calculation, which is a validated novel method providing better accuracy than the Friedewald equation in the estimation of LDL-C. Hola PHAN et al. KAUSHIK. 2013;310(19): 6370-9932 (http://education.ADP/faq/ERZ101) CHOL/HDLC RATIO 3.0 <5.0 (calc) [facility] NON-HDL CHOLESTEROL 81 <130 mg/dL (calc) [facility] Comment: For patients with diabetes plus 1 major ASCVD risk factor, treating to a non-HDL-C goal of <100 mg/dL (LDL-C of <70 mg/dL) is considered a therapeutic option. Blood Blood / Unknown 05/06/2024 1 :56 PM EST 05/06/2024 1:56 PM EST Narrative [facility] - 05/08/2024 5:49 PM EST FASTING:NO Mary Osborne PA-C LAB - BLOOD DRAW Final Resu lt [facility] [address] [address], [facility] [address] [place] [address] * (ABNORMAL) COMPREHENSIVE METABOLIC PANEL (05/06/2024 1:56 PM EST) GLUCOSE 329(H) 65 - 139 mg/dL [facility] Comment: Non-fasting reference interval UREA NITROGEN (BUN) 39(H) 7 - 25 mg/dL [facility] CREATININE (blood) 2.99(H) 0.70 - 1.35 mg/dL [facility] EGFR 22(L) > OR = 60 mL/min/1. 73m2 [facility] BUN/CREATININE RATIO 13 6 - 22 (calc) [facility] SODIUM 133(L) 135 - 146 mmol/L [facility] POTASSIUM 4.4 3.5 - 5.3 mmol/L [facility] CHLORIDE 101 98 - 110 mmol/L [facility] CARBON DIOXIDE 22 20 - 32 mmol/L [facility] CALCIUM 8.4(L) 8.6 - 10.3 mg/dL [facility] PROTEIN, TOTAL 5.8(L) 6.1 - 8.1 g/dL [facility] ALBUMIN 3.2(L) 3.6 - 5.1 g/dL [facility] GLOBULIN 2.6 1.9 - 3.7 g/dL (calc) [facility] ALBUMIN/GLOBULI N RATIO 1.2 1.0 - 2.5 (calc) [facility] BILIRUBIN, TOTAL 0.3 0.2 - 1.2 mg/dL [facility] ALKALINE PHOSPHATASE 181(H) 35 - 144 U/L [facility] AST 25 10 - 35 U/L [facility] ALT 26 9 - 46 U/L [facility] Blood Blood / Unknown 05/06/2024 1 :56 PM EST 05/06/2024 1:56 PM EST Narrative [facility] - 05/08/2024 5:49 PM EST FASTING:NO Mary Osborne PA-C LAB - BLOOD DRAW Edited Res ult - Final [facility] [address] [address], [facility] [address] [address] * HEPATITIS A,B,C PANEL (02/27/2017 11:10 AM EST) HEPATITIS B SURFACE ANTIBODY NEGATIVE NEGATIVE [facility] HEPATITIS B SURFACE ANTIGEN NEGATIVE NEGATIVE [facility] Comment: Over the counter supplements containing high doses of biotin may interfere with this assay. If interference is suspected, patients shoud be retested after refraining from biotin supplements for 72 hours. HEPATITIS C VIRUS DIAGNOSTIC NEGATIVE NEGATIVE [facility] HEPATITIS B CORE ANTIBODY NEGATIVE NEGATIVE [facility] HEPATITIS A ANTIBODY TOTAL NEGATIVE NEGATIVE [facility] Comment: Over the counter supplements containing high doses of biotin may interfere with this assay. If interference is suspected, patients shoud be retested after refraining from biotin supplements for 72 hours. Blood specimen (specimen) Blood / Unknown 02/27/2017 11:10 AM EST 02/27/2017 11:33 AM EST Narrative [facility] - 02/27/2017 4:19 PM EST [employer] [address] [place] [address] [place] [id number] ORD# [id number] Gregor GRIFFITH LAB - BLOOD DRAW Edited Result - Final Performing Organization Address City/[facility]/ZIP Co de Phone Number [facility] [address] [place] [address], from Last 3 Months or Most Recently Relevant to Health Maintenance Insurance [facility] [employer] [facility] [place] [address] [place] [address] [facility] Care Teams Manager Dairy Relationship Specialty Start Date End Date Anel Padgett FNP [address] [place] [address] PCP - General Internal Medicine 09/05/21
[2024-11-19 13:20] LABS: Hematocrit 26.4 % (42.0-52.0); Hemoglobin 9.2 g/dl (14.0-18.0); Mean Corpuscular HGB Conc 34.8 g/dl (31.0-36.0); Mean Corpuscular Hemoglobin 31.9 pg (27.0-33.0); Mean Corpuscular Volume 91.7 fL (80.0-98.0); NRBC Abs Auto 0.000 X10*3/uL (0.0-0.012); NRBC Pct Auto 0.0 /100WBC (0.0-0.2); Platelet Count 186 X10*3/uL (160-400); Red Blood Count 2.88 X10*6/uL (4.60-5.80); White Blood Count 4.7 X10*3/uL (4.8-10.8)
[2024-11-19 13:59] LABS: Anion Gap 13 (12-20); Blood Urea Nitrogen 52 mg/dL (9-16); Calcium 8.4 mg/dL (8.4-10.2); Carbon Dioxide 22 mmol/L (22-29); Chloride 104 mmol/L (96-108); Estimated Glomerular Filt Rate 11; Ferritin 493 ng/mL (20-250); Iron 81 mcg/dL (45-160); Percent Iron Saturation 42 % (15-50); Potassium 5.0 mmol/L (3.3-5.1); Sodium 134 mmol/L (135-145); Total Iron Binding Capacity 194 mcg/dL (228-428); Unsaturated Iron Binding 113 ug/dL
== END 2024-11-19 10:15 | disposition home or self-care (01) ==
LOC: HO.HKASLDS 10:14
PROVIDERS: PCP Physician Assistant Medical; Visit Provider Internal Medicine Hypertension Specialist
DX: I12.0 Hypertensive chronic kidney disease with stage 5 chronic kidney disease or end stage renal disease (principal); E11.22 Type 2 diabetes mellitus with diabetic chronic kidney disease; N18.5 Chronic kidney disease, stage 5; D63.1 Anemia in chronic kidney disease; E11.42 Type 2 diabetes mellitus with diabetic polyneuropathy; N40.1 Benign prostatic hyperplasia with lower urinary tract symptoms; N13.8 Other obstructive and reflux uropathy; K59.04 Chronic idiopathic constipation; K74.60 Unspecified cirrhosis of liver; D12.6 Benign neoplasm of colon, unspecified; Z79.4 Long term (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; Z79.84 Long term (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 of oral hypoglycemic drugs; Z79.899 Other long term (current) drug therapy
CPT/HCPCS: 36415; 80048; 82728; 83540; 85027; 96372; 99212; Q5106

== ENCOUNTER 2024-11-19 10:14 | Outpatient (AMB) | payer OTHER, SELFPAY ==
[2024-11-19 10:15] VITALS: BP 152/86; PULSE 87; O2SAT 96; BMI 26.7
--- NOTE | 2024-11-19 10:15 | HO.NEPHOV ---
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 Operator Required: No Accompanied by: Self / Same As Patient Allergies lisinopril Allergy (Unknown, Verified 11/19/24 10:18) cough Medication List - Last Reconciled 11/19/24 by Tera Aguirre MD albuterol sulfate 90 mcg/actuation inhalation atorvastatin 80 mg PO QDAY bisacodyl (Dulcolax (bisacodyl)) 10 mg (2 x 5 mg) PO BEDTIME 2 days blood sugar diagnostic (FreeStyle Lite Strips) As directed four times a day cholecalciferol (vitamin D3) 50 mcg PO DAILY clonidine HCl 0.1 mg PO BID dapagliflozin propanediol (Farxiga) 5 mg PO DAILY [insulin 62 units intradermal .after meals] insulin lispro (Humalog U-100 Insulin) 22 units subcut .before meals magnesium oxide 420 mg PO QDAY PRN peg 3350-electrolytes 236-22.74-6.74 -5.86 gram (Golytely) 240 mL PO Q10M 1 day pen needle, diabetic (BD Ultra-Fine Yuliana Pen Needle) As directed four times a day sodium zirconium cyclosilicate (Lokelma) 5 grams PO .weekly tamsulosin mg PO DAILY trospium 20 mg PO BID valsartan 320 mg PO DAILY HPI Comments Details: 69 yr old man with long standing h/o HTN And DM for more than 5 years referred for CKD Creatinine was 1.2 in 2020. Creatinine has bumped up to 1.7 in June Currently on Bumex 0.5mg along with VAlsartan 320 mg 01/02/2024. 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 03/05/24 c/o Itching and rash x 3-4 weeks ;Farxiga was started 6 weeks ago. cr upto 2.98! 04/09/24 Still with itching; Off Farxiga; GAined 4 lbs ; c/o edema 06/11/24 Still has itching Has been taking Hydralazine QD instead of TID Lost 10-14 lbs with Bumex 08/06/24 No improving in Itching 09/03/24 69-year-old male seen for Chronic Kidney Disease and associated symptoms. He experiences persistent pruritus involving his eyes, scalp, arms, and legs, possibly linked to medication adjustments since the introduction of hydralazine. Attempts to modify medications have thus far provided insufficient relief for his symptoms. The patient also has a history of hypertension and diabetes mellitus with suboptimal glycemic control; his recent blood glucose was recorded at 238 mg/dL. He correlates dietary habits with blood sugar fluctuations and has been attempting to improve these. Concurrently, the patient reports peripheral edema with associated discoloration. His CKD is advancing, with a current kidney function level at an approximate GFR of 16%, a reduction from a previous measurement of 19%. The patient has brother on dialysis; his brother recently began treatment due to similar underlying conditions. These factors contribute to the patient?s concern about future renal interventions. 10/15/24 The patient is a 69-year-old male presenting with hypertension, chronic kidney disease, and anemia. Hypertension has been a persistent issue, with recent blood pressure readings of 156/80 mmHg, despite multiple antihypertensive medications including valsartan and clonidine. Previous trials with amlodipine and hydralazine were discontinued due to adverse effects such as edema and pruritus. Chronic kidney disease is attributed to long-standing diabetes, with current kidney function at approximately 14%. Anemia is suspected to be multifactorial, potentially due to gastrointestinal blood loss and decreased erythropoietin production from renal impairment. A stool test and colonoscopy are planned to investigate potential gastrointestinal bleeding. The patient will receive erythropoietin injections to address anemia related to renal insufficiency. [facility] Medical History (Updated 11/19/24 @ 10:29 by Tera Aguirre MD) CKD (chronic kidney disease) Diabetes type 2, uncontrolled Essential hypertension Hypertriglyceridemia Hyperlipidemia LDL goal <100 Type 2 diabetes mellitus with diabetic polyneuropathy Cirrhosis of liver GERD (gastroesophageal reflux disease) Tubular adenoma of colon Chronic idiopathic constipation Surgical History History of penile implant History of gastric surgery H/O esophagogastroduodenoscopy Hx of colonoscopy (~10/2014) Family History Father No problems noted. Mother Esophageal cancer Maternal Grandfather Prostate cancer Diabetes Maternal Grandmother CVD (cardiovascular disease) Daughter Tubular adenoma Social History Household Members: Spouse Alcohol intake: current Alcohol intake frequency: former alcohol drinker Patient Tobacco Use Status: Former Tobacco user Physical Exam Vital Signs: Last Vital Signs Pulse 87 11/19/24 10:15 BP 152/86 H 11/19/24 10:15 Pulse Ox 96 11/19/24 10:15 Oxygen Delivery Method Room Air 11/19/24 10:15 BMI result Body Mass Index 26.7 Comfortable Neck supple no JVD. Lungs entry equal no rales. Heart S1-S2 heard no gallop or rub. Abdomen soft nontender. Neuro alert awake oriented. No asterixis. Extremities 1 to 2 + edema. Office Meds epoetin felipa-epbx 20,000 unit/mL injection solution Performing Provider: Tera Aguirre MD Performing Location: [facility] Administered by: Tera Aguirre MD on 11/19/24 10:29 Dose Route Admin Location Dispensed Lot Number Expiration Date [facility] Inspector Chief 20,000 unit subcut right arm 1 mL [id number] 06/20/26 6371-3622-41 [employer] [facility] Total Dispensed Waste 1 mL 0 % Results Reviewed Nephrology Results: Hgb, (14.0-18.0) 8.8 g/dl L 10/03/24 WBC, (4.8-10.8) 6.0 X10*3/uL 10/03/24 Plt Count, (160-400) 196 X10*3/uL 10/03/24 Sodium, (135-145) 134 mmol/L L 10/08/24 Potassium, (3.3-5.1) 5.6 mmol/L H 10/08/24 Chloride, (96-108) 104 mmol/L 10/08/24 Carbon Dioxide, (22-29) 24 mmol/L 10/08/24 BUN, (9-16) 44 mg/dL H 10/08/24 Creatinine, (0.5-1.4) 4.32 mg/dL H* 10/08/24 Calcium, (8.4-10.2) 8.1 mg/dL L Δ 10/08/24 PTH Intact, (8.7-77.1) 352.7 pg/mL H 09/02/24 Urine Protein, (Neg-Trace) >=1000 (4+) mg/dL H 10/03/24 Urine Creatinine 120.25 mg/dL 10/03/24 Renal US 09/28/23 Assessment & Plan Assessment & Plan (1) CKD (chronic kidney disease): Comment: Kidney biopsy on 12/18/2023 revealed nodular mesangial/diabetic glomerulosclerosis. Moderately active interstitial nephritis with eosinophils. Moderate chronic changes including global glomerulosclerosis 35%, tubular atrophy/interstitial fibrosis 30%. Vascular sclerosis moderate with focal hyalinosis. Code(s): N18.9 - Chronic kidney disease, unspecified Category: Medical (2) BPH w urinary obs/LUTS: Code(s): N40.1 - Benign prostatic hyperplasia with lower urinary tract symptoms; N13.8 - Other obstructive and reflux uropathy Category: Medical (3) Essential hypertension: Code(s): I10 - Essential (primary) hypertension Category: Medical (4) Type 2 diabetes mellitus with diabetic polyneuropathy: Code(s): E11.42 - Type 2 diabetes mellitus with diabetic polyneuropathy Category: Medical (5) Cirrhosis of liver: Comment: 2018 hepatitis a B and C screens negative Code(s): K74.60 - Unspecified cirrhosis of liver Category: Medical (6) Chronic kidney disease (CKD) stage G5/A1, glomerular filtration rate (GFR) less than or equal to 15 mL/min/1.73 square meter and albuminuria creatinine ratio less than 30 mg/g: Comment: Kidney biopsy on 12/18/2023 revealed nodular mesangial/diabetic glomerulosclerosis. Moderately active interstitial nephritis with eosinophils. Moderate chronic changes including global glomerulosclerosis 35%, tubular atrophy/interstitial fibrosis 30%. Vascular sclerosis moderate with focal hyalinosis. Code(s): N18.5 - Chronic kidney disease, stage 5 Category: Medical (7) Tubular adenoma of colon: Comment: 2021 scope equals large TA repeated 3 years aeb Code(s): D12.6 - Benign neoplasm of colon, unspecified Category: Medical (8) Chronic idiopathic constipation: Comment: Now managed on Flax Code(s): K59.04 - Chronic idiopathic constipation Category: Medical (9) Anemia due to chronic kidney disease: Code(s): N18.9 - Chronic kidney disease, unspecified; D63.1 - Anemia in chronic kidney disease Category: Medical Plan . 69 yr old man with CKD in a setting of DM and HTN Diabetic nephropathy by biopsy No evidence of obstruction based on recent imaging Will benefit from SGLT-2 inhibitors Added Farxiga 5 mg daily ( dec 2023) Was on Hold due to itching Willing to try again- will restart today 10/15/24 Goal is to slow the progression of renal disease Maintain BP < 130/80 and A1c < 7% Avoid nephrotoxins including NSAIDS HTN BP sub optimal but better controlled Keep current meds Treated with a course of Prednisone - No improvement Rash resolved Hydroxyzine 10 mg PRN- no improvement in itching-Will DC 10/15/24 I discussed with the patient the importance of managing hypertension with the current medications and monitoring for any side effects. We reviewed the need for dietary changes to manage potassium levels and started Lokelma 5 gm PO weekly The plan for addressing anemia includes erythropoietin injections and a gastrointestinal workup to rule out bleeding. I advised the patient to meet with the dialysis team to explore future dialysis options, given the current kidney function status. Restart Farxiga 5 mg QD 11/19/24 Anemia due to cKD Administered Retacrit 15163 U SQ Orders: Orders AMB Epoetin Injection Practice Supplied Today D63.1 - Anemia in chronic kidney disease, N18.9 - Chronic kidney disease, unspecified, N40.1 - Benign prostatic hyperplasia with lower urinary tract symptoms Basic Metabolic Panel Today D63.1 - Anemia in chronic kidney disease, N18.9 - Chronic kidney disease, unspecified Complete Blood Count no Diff Today D63.1 - Anemia in chronic kidney disease, N18.9 - Chronic kidney disease, unspecified Coding Level of Care Code Est Pt Level 4 (81537) Diagnoses CKD (chronic kidney disease) N18.9 BPH w urinary obs/LUTS N40.1; N13.8 Essential hypertension I10 Type 2 diabetes mellitus with diabetic polyneuropathy E11.42 Cirrhosis of liver K74.60 Chronic kidney disease (CKD) stage G5/A1, glomerular filtration rate (GFR) less than or equal to 15 mL/min/1.73 square meter and albuminuria creatinine ratio less than 30 mg/g N18.5 Tubular adenoma of colon D12.6 Chronic idiopathic constipation K59.04 Anemia due to chronic kidney disease N18.9; D63.1
--- OUTSIDE RECORDS SUMMARY | 2024-11-19 11:05 | XMS_ITS | Patient Health Record ---
Author Organization [facility] liance Address [address] [place] [address] Care Team Providers Care Fisheries Enforcement Officer Name Role Phone Gregor Ruiz Primary Care Provider Unavailabl e Clinical, Operations Unavailable Unavailable Kaiden Bautista Unavailable [phone] BryantArielle Unavailable [phone] Allergies Allergen (clinical drug ingredient) Drug/Non Drug [...] Problem Status W/U Status Risk Notes Problem Nicotine dependence (37720072) Personal history of nicotine dependence (Z87.891) Active confirmed Problem Tinea unguium (729067643) Tinea unguium (B35.1) Active confirmed Problem Overweight (769972350) Overweight (E66.3) Active confirmed Problem Tachycardia (4582829) Tachycardia, unspecified (R00.0) Active confirmed Problem Abdominal pain (finding) (61505993) Abdominal pain, unspecified site (R10.9) Active confirmed Problem Acquired trigger finger (3985997) Trigger thumb, left thumb (M65.312) Active confirmed Problem Pain in left foot (125910587764314) Pain in left foot (M79.672) Active confirmed Problem Bursitis of left shoulder (027717269628845) Bursitis of left shoulder (M75.52) Active confirmed Problem Lumbosacral spondylosis without myelopathy (91465086) Spondylosis without myelopathy or radiculopathy, lumbar region (M47.816) Active confirmed Problem Backache (743817681) Dorsalgia, unspecified (M54.9) Active confirmed Problem Pain in right foot (379236719215039) Pain in right foot (M79.671) Active confirmed Problem Folliculitis (88615231) Folliculitis (L73.9) Active confirmed Problem Arthropathy of lumbar facet joint (disorder) (165540922) Facet arthropathy, lumbar (M47.816) Active confirmed Problem Tobacco user (154747811) Cigarette nicotine dependence without complication (F17.210) Active confirmed Problem Recurrent major depression in full remission (17018994) Major depressive disorder, recurrent, in full remission (F33.42) Active confirmed Problem Cholesterolosis of gallbladder (28866616) 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) Active confirmed Problem Localized, primary osteoarthritis of the pelvic region and thigh (769347771) Unilateral primary osteoarthritis, right hip (M16.11) Active confirmed Problem Degeneration of lumbar intervertebral disc (77601430) Other intervertebral disc degeneration, lumbar region (M51.36) Active confirmed Problem Nocturia (188863873) Nocturia (R35.1) Active confirmed Problem Gastroesophageal reflux disease without esophagitis (589188029) Gastroesophageal reflux disease without esophagitis (K21.9) Active confirmed Problem Long-term current use of insulin (923576195) penitentiary (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 (Z79.4) Active confirmed Problem Chronic kidney disease due to hypertension (600934719273890) Hypertensive chronic kidney disease with stage 1 through stage 4 chronic kidney disease, or unspecified chronic kidney disease (I12.9) Active confirmed Problem Erectile dysfunction (disorder) (515009013) Erectile dysfunction, unspecified erectile dysfunction type (N52.9) Active confirmed Problem History of transurethral resection of prostate (555551547) S/P TURP (Z90.79) Active confirmed Problem Primary hypertension (41122446) Primary hypertension (I10) Active confirmed Problem Hyperlipidaemia (68045187) Hyperlipidemia, unspecified hyperlipidemia type (E78.5) Active confirmed Problem Shoulder joint pain (436225313) Left shoulder pain, unspecified chronicity (M25.512) Active confirmed Problem Type II diabetes mellitus without complication (507395793) Type 2 diabetes mellitus without complication, without long-term current use of insulin (E11.9) Active confirmed Problem Diabetic peripheral neuropathy associated with type 2 diabetes mellitus (2958732860084) Type 2 diabetes mellitus with diabetic neuropathy, without long-term current use of insulin (E11.40) Active confirmed Problem Chronic idiopathic constipation (43640783) Chronic idiopathic constipation (K59.04) Active confirmed Problem Secondary catara ct of both eyes, unspecified secondary cataract type (H26.40) Active confirmed Problem Lower urinary tract symptoms due to benign prostatic hypertrophy (65299860025100) Benign prostatic hyperplasia with lower urinary tract symptoms, symptom details unspecified (N40.1) Active confirmed Problem Glaucoma (57689531) Glaucoma, unspecified glaucoma type, unspecified laterality (H40.9) Active confirmed Problem Diverticulitis of colon (562349877) Diverticulitis of large intestine, unspecified bleeding status, unspecified complication status (K57.32) Active confirmed Problem Cirrhosis - non-alcoholic (488793204) Hepatic cirrhosis, unspecified hepatic cirrhosis type, unspecified whether ascites present (K74.60) Active confirmed Problem Low back pain (finding) (618393770) Low back pain, unspecified back pain laterality, unspecified chronicity, unspecified whether sciatica present (M54.50) Active confirmed Problem History of endocrine disorder (583875277) H/O hypogonadism (Z86.39) Active confirmed Vital Signs Height-cm 181.61 cm 08/25/2024 Height 71.5 in 08/25/2024 Encounters Encounter Location Date Provider Diagnosis [address] [address] 03/10/2024 Operations Clinical Folliculitis L73.9 ; Primary [...] Unilateral primary osteoarthritis, right hip M16.11 ; intermediate designer (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 Z79.4 ; Low back pain, unspecified back pain laterality, unspecified chronicity, unspecified whether sciatica present M54.50 ; Hypertensive chronic kidney disease with stage 1 through stage 4 chronic kidney disease, or unspecified chronic kidney disease I12.9 and Tachycardia, unspecified R00.0 [facility] [address] [place] [address] 08/25/2024 Arielle Hurtado Folliculitis L73.9 ; Primary [...] Unilateral primary osteoarthritis, right hip M16.11 ; intermediate designer (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 Z79.4 ; Low back pain, unspecified back pain laterality, unspecified chronicity, unspecified whether sciatica present M54.50 ; Hypertensive chronic kidney disease with stage 1 through stage 4 chronic kidney disease, or unspecified chronic kidney disease I12.9 and Tachycardia, unspecified R00.[address] [address] 09/01/2024 Kaiden Bautista Assessments Encounter Date Diagnosis (ICD Code) Assessment [...] osteoarthritis, right hip (ICD-10 - M16.11) 03/10/2024 intermediate designer (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 (ICD-10 - Z79.4) Problem list updated using [employer] 08/25/2024 penitentiary (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 (ICD-10 - Z79.4) [...] Insured Coverage Start Date [facility]age End Date [id number] [address] [place] [address] [id number] Modesto Rogers Self - patient is the insured 2 9
--- OUTSIDE RECORDS SUMMARY | 2024-11-19 11:05 | XMS_ITS | Clinical Summary ---
Author Organization [facility] Address [address] [place] [address] Phone Care Team Providers Care Music Industry Intern Name Role Phone Rashid Steele Primary Care [...] total) by mouth. 03/28/20 24 Active cloNIDine ([id number]-2) 0.2 mg/[address] on the skin. [...] By: RASHID STEELE Comment: GI is at [facility]; , FAX [phone] Dec 01, 2020 Entered By: RASHID STEELE Comment: [facility]. [facility] ABD that GI at [facility] Desires Jul 22, 2021 Entered By: RASHID STEELE Comment: Next Hepatology appt., w/ Imaging at [facility] in Mid - AUG 12 Oct 14, 2021 Entered By: RASHID STEELE Comment: Per Pt., Liver Disease Stable; Not Progressed Oct 14, 2021 Entered By: RASHID STEELE Comment: Chooses Private Care for This Oct 28, 2021 Entered By: RASHID STEELE Comment: LFT's WNL OCTOBER 12 May 31, 2022 Entered By: RASHID STEELE Comment: Still Sees GI/Hepatology at [facility]; Next Appt JUN 15 May 31, 2022 Entered By: RASHID STEELE Comment: US pending at [facility] JUN 15 Dec 01, 2022 Entered By: RASHID STEELE Comment: US, Elastography [place] DEC 13 [place]: Dec 01, 2022 Entered By: RASHID STEELE [...] nonproliferative 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 edema, bilateral (CMS/[facility] V24, CMS/[facility] V28) 07/25/2024 Type 2 diabetes mellitus wit [...] RASHID STEELE Comment: US, Aorta DEC 13 [place]: no AAA Jul 09, 2023 Entered By: RASHID STEELE Comment: hypertension Essential (primary) hypertension 07/25/2024 Postoperative infection 05/19/2024 Trigger finger of right thumb 05/19/2024 Immunizations Name Administration Dates Next Due DTaP, [...] LNP-S, preservative free 04/02/2021 PPD Test 09/30/2014 [employer]ice SARS-CoV-2 COVID-19, mRNA, LNP-S, preservative free 07/20/2020,06/29/2020 [...] Medical History Medical History Date Comments Diabetes ([facility] V24, [facility] V28) Arthritis High blood pressure Social History [...] Influencers of Health Screening 03/22/2022 Zoster Vaccines (2 of 2) 04/25/2023 02/28/2023, 07/22 Depression Screening 04/23/2024 COVID-19 Vaccine (6 - Mixed Product risk season) 2024 01/23/2024, 01/31/2022, 04/02/2021, Additional history exists Diabetes: Blood Sugar Control Test (HGBA1C) 11/03/2024 05/06/2024 Influenza Vaccine (#1) 2024 , 01/15/2023, 03/15/2022, Additional history exists Diabetes: Annual Urine Albumin-Creatinine Ratio (uACR) 05/06/2025 [...] exists RSV Immunization Adult Patients Completed 04/03/2023 HIB Vaccines Aged Out No longer eligi [...] on patient's age to complete this topic Insurance [employer] MED[employer] Member Subscriber Plan / Payer (Ef fective 2021-Present) Name:Mod[place] Rogers Relation to Subscriber:Self Name:Modesto Rogers Payer ID:[id number] Group ID:[id number] Type:Not on file Address: [place] [address] [address] [address] [address] Care Teams Music Industry Intern Relationship Specialty Start Date End Date Rashid Steele PA [address] [place] [address] PCP - General Internal Medicine 08/12/24
== END 2024-11-19 10:51 | disposition home or self-care (01) ==
LOC: HO.HKAS 10:15
PROVIDERS: PCP Physician Assistant Medical; Visit Provider Internal Medicine Hypertension Specialist
DX: N18.9 Chronic kidney disease, unspecified (principal); N40.1 Benign prostatic hyperplasia with lower urinary tract symptoms; N13.8 Other obstructive and reflux uropathy; I12.9 Hypertensive chronic kidney disease with stage 1 through stage 4 chronic kidney disease, or unspecified chronic kidney disease; E11.42 Type 2 diabetes mellitus with diabetic polyneuropathy; K74.60 Unspecified cirrhosis of liver; N18.5 Chronic kidney disease, stage 5; D12.6 Benign neoplasm of colon, unspecified; K59.04 Chronic idiopathic constipation; D63.1 Anemia in chronic kidney disease
CPT/HCPCS: 99214

== ENCOUNTER 2024-12-31 11:53 | Outpatient (AMB) | payer OTHER, SELFPAY ==
--- OUTSIDE RECORDS SUMMARY | 2024-12-31 04:44 | XMS_ITS ---
Author Organization [facility] liance Address [address] [place] [address] Care Team Providers Care Batching Operator Name Role Phone Gregor Ruiz Primary Care Provider Arielle Huddleston Unavailable [phone] Allergies Allergen (clinical drug ingredient) Drug/Non Drug Allergy documented on EMR Reaction Allergy Type Onset Date Status lisinopril Lisinopril Unknown Drug Allergy Activ e REASON FOR VISIT Post Discharge Medication Reconciliation Medications Medication SIG (Take, Route, Frequency, Duration) Notes Start Date End Date Status Trulicity 1.5 MG/0.5ML as directed Subcutaneous Member reports not using anymore, Switch to diffiennt Insulin Not-Taking Pregabalin 100 MG 1 capsule Orally Once a day Member reports not using anymore Not-Taking Tresiba FlexTouch 200 UNIT/ML Sliding scale Subcutaneous Once a day Member reports not using anymore, switched to different Insulin Not-Taking Omeprazole 20 MG 1 capsule 30 minutes before morning meal Orally Once a day Not-Taking predniSONE 10 MG take 4 tabs daily for 3 day, then 3 tabs for 3 days, then 2 tabs for 3 days, then 1 tab for 3 days. Orally Once a day Not-Taking metFORMIN HCl 500 MG 1 tablet with a meal Orally Once a day states was d/c Not-Taking Naproxen 500 MG 1 tablet with food or milk as needed Orally every 12 hrs Member reports not using anymore Not-Taking hydrALAZINE HCl 50 MG 1 tablet with food Orally 3 times per day Not-Taking hydroCHLOROthiazide 12.5 MG 1 capsule in the morning Orally Once a day Taking Valsartan Not-Taking Insulin Aspart 100 UNIT/ML 22 units befo re breakfast, lunch and dinner Subcutaneous Three times a day Not-Taking Aspirin 81 81 MG 1 tablet Orally Once a day Member reports not using anymore Not-Taking Centrum Adults - as directed Orally Duplicate Not-Taking Dicyclomine HCl 10 MG 1 capsules Orally Four times a day Member reports not using anymore Not-Taking amLODIPine Besylate 5 MG 1 tablet Orally Once a day states was d/c Not-Taking Farxiga 5 MG 1 tablet Orally Once a day Not-Taking Tamsulosin HCl 0.4 MG 1 capsule Orally Once a day Active Valsartan 320 MG 1 tablet Orally Once a day Active Vitamin D 50 MCG (1999 UT) 1 tablet Oral ly Once a day Active Magnesium Oxide 420 MG 1 tablet as needed Orally Once a day Active Multivitamin - 1 tablet Orally Once a day One a day(brand name) Active hydrALAZINE HCl 100 MG 1 tablet with food Orally Twice a day Active Insulin Glargine 100 UNIT/ML 62 units Subcutaneous At bedtime Active Insulin Lispro 200 UNIT/ML per sliding scale Subcutaneous 3 times a day 100-149- take 3 units Sugar 150 - 199 - take 5units Sugars 200 - 249 - take 7 units, Sugars 250 - 299 - take 9 units, Sugars 300 - 349 - take 11 units, Sugars 350 - 399 - take 13 units 5 Active Latanoprost 0.005 % 1 drop into affected eye in the evening Ophthalmic Once a day Active Lidocaine 5 % 1 patch remove after 12 hours Externally Once a day Active Carvedilol 25 MG 1 tablet with food Orally Twice a day 5 Active cloNIDine HCl 0.1 MG 1 tablet Orally twice a day 5 Active Diclofenac Sodium 1 % as directed Externally Active Farxiga 5 MG 1 tablet Orally Once a day 5 Active Carboxymethylcellulose Sod PF 0.5 % as directed Ophthalmic Four times a day Active Atorvastatin Calcium 80 MG 0.5 tablet Or ally Once a day Active Aspirin 81 81 MG 1 tablet Orally Once a day 5 Active Bumetanide 1 MG 1 tablet Orally Once a day Active Encounters Encounter Location Date Provider Diagnosis [facility] [address] [facility] [place] [address] 12/31/2024 Arielle Hurtado Plan Of Treatment No Information Progress Notes * [place] SAM FDOB:1955 (69 yo M)Acc No.[id number]:12/31/2024 Patient: [place] WARE :1955 A ge:69 Y S ex:Male Address:[address] [place] [address], [place] [address] Subjective: * Chief Complaints: * P ost Discharge Medication Reconciliation * HPI: M edication Review: Medication Review W hat service was performed? P ost-discharge medication review V isit/Encounter Type T elephone W as the medication list in eCW updated? Y es- there were no new or changed medications W ere medication discrepancies/issues identified? N o W hat interventions have been performed? R emedia reviewed, Member/caregiver education, Allergies Updated, No discrepancies found * Medical History: * Surgical History: * Hospitalization/Major Diagno stic Procedure: * Medications: T akingAspirin 81 81 MG Tablet Delayed Release 1 tablet Orally Once a day Atorvastatin Calcium 80 MG Tablet 0.5 tablet Orally Once a day Bumetanide 1 MG Tablet 1 tablet Orally Once a day Carboxymethylcellulose Sod PF 0.5 % Solution as directed Ophthalmic Four times a day Carvedilol 25 MG Tablet 1 tablet with food Orally Twice a day cloNIDine HCl 0.1 MG Tablet 1 tablet Orally twice a day Diclofenac Sodium 1 % Gel as directed Externally Farxiga 5 MG Tablet 1 tablet Orally Once a day hydrALAZINE HCl 100 MG Tablet 1 tablet with food Orally Twice a day Insulin Glargine 100 UNIT/ML Solution Pen-injector 62 units Subcutaneous At bedtime Insulin Lispro 200 UNIT/ML Solution Pen-injector per sliding scale Subcutaneous 3 times a day 100-149- take 3 units Sugar 150 - 199 - take 5units Sugars 200 - 249 - take 7 units, Sugars 250 - 299 - take 9 units, Sugars 300 - 349 - take 11 units, Sugars 350 - 399 - take 13 unitsLatanoprost 0.005 % Solution 1 drop into affected eye in the evening Ophthalmic Once a day Lidocaine 5 % Patch 1 patch remove after 12 hours Externally Once a day Magnesium Oxide 420 MG Tablet 1 tablet as needed Orally Once a day Multivitamin - Tablet 1 tablet Orally Once a day One a day(brand name)Tamsulosin HCl 0.4 MG Capsule 1 capsule Orally Once a day Valsartan 320 MG Tablet 1 tablet Orally Once a day Vitamin D 50 MCG (1999 UT) Tablet 1 tablet Orally Once a day Taking Aspirin 81 81 MG Tablet Delayed Release 1 tablet Orally Once a day Taking Atorvastatin Calcium 80 MG Tablet 0.5 tablet Orally Once a day Taking Bumetanide 1 MG Tablet 1 tablet Orally Once a day Taking Carboxymethylcellulose Sod PF 0.5 % Solution as directed Ophthalmic Four times a day Taking Carvedilol 25 MG Tablet 1 tablet with food Orally Twice a day Taking cloNIDine HCl 0.1 MG Tablet 1 tablet Orally twice a day Taking Diclofenac Sodium 1 % Gel as directed Externally Taking Farxiga 5 MG Tablet 1 tablet Orally Once a day Taking hydrALAZINE HCl 100 MG Tablet 1 tablet with food Orally Twice a day Taking Insulin Glargine 100 UNIT/ML Solution Pen-injector 62 units Subcutaneous At bedtime Taking Insulin Lispro 200 UNIT/ML Solution Pen-injector per sliding scale Subcutaneous 3 times a day 100-149- take 3 units Sugar 150 - 199 - take 5units Sugars 200 - 249 - take 7 units, Sugars 250 - 299 - take 9 units, Sugars 300 - 349 - take 11 units, Sugars 350 - 399 - take 13 unitsTaking Latanoprost 0.005 % Solution 1 drop into affected eye in the evening Ophthalmic Once a day Taking Lidocaine 5 % Patch 1 patch remove after 12 hours Externally Once a day Taking Magnesium Oxide 420 MG Tablet 1 tablet as needed Orally Once a day Taking Multivitamin - Tablet 1 tablet Orally Once a day One a day(brand name)Taking Tamsulosin HCl 0.4 MG Capsule 1 capsule Orally Once a day Taking Valsartan 320 MG Tablet 1 tablet Orally Once a day Taking Vitamin D 50 MCG (2000 UT) Tablet 1 tablet Orally Once a day Not- TakingamLODIPine Besylate 5 MG Tablet 1 tablet Orally Once a day , Notes to Pharmacist: states was d/cAspirin 81 81 MG Tablet Chewable 1 tablet Orally Once a day , Notes to Pharmacist: Member reports not using anymoreCentrum Adults - Tablet as directed Orally , Notes to Pharmacist: DuplicateDicyclomine HCl 10 MG Capsule 1 capsules Orally Four times a day , Notes to Pharmacist: Member reports not using anymoreFarxiga 5 MG Tablet 1 tablet Orally Once a day hydrALAZINE HCl 50 MG Tablet 1 tablet with food Orally 3 times per day hydroCHLOROthiazide 12.5 MG Capsule 1 capsule in the morning Orally Once a day , Notes to Pharmacist: Taking ValsartanInsulin Aspart 100 UNIT/ML Solution Pen- injector 22 units before breakfast, lunch and dinner Subcutaneous Three times a day metFORMIN HCl 500 MG Tablet 1 tablet with a meal Orally Once a day , Notes to Pharmacist: states was d/cNaproxen 500 MG Tablet 1 tablet with food or milk as needed Orally every 12 hrs , Notes to Pharmacist: Member reports not using anymoreOmeprazole 20 MG Capsule Delayed Release 1 capsule 30 minutes before morning meal Orally Once a day predniSONE 10 MG Tablet take 4 tabs daily for 3 day, then 3 tabs for 3 days, then 2 tabs for 3 days, then 1 tab for 3 days. Orally Once a day Pregabalin 100 MG Capsule 1 capsule Orally Once a day , Notes to Pharmacist: Member reports not using anymoreTresiba FlexTouch 200 UNIT/ML Solution Pen-injector Sliding scale Subcutaneous Once a day , Notes to Pharmacist: Member reports not using anymore, switched to different InsulinTrulicity 1.5 MG/0.5ML Solution Pen-injector as directed Subcutaneous , Notes to Pharmacist: Member reports not using anymore, Switch to diffiennt InsulinNot-Taking amLODIPine Besylate 5 MG Tablet 1 tablet Orally Once a day , Notes to Pharmacist: states was d/cNot-Taking Aspirin 81 81 MG Tablet Chewable 1 tablet Orally Once a day , Notes to Pharmacist: Member reports not using anymoreNot-Taking Centrum Adults - Tablet as directed Orally , Notes to Pharmacist: DuplicateNot-Taking Dicyclomine HCl 10 MG Capsule 1 capsules Orally Four times a day , Notes to Pharmacist: Member reports not using anymoreNot-Taking Farxiga 5 MG Tablet 1 tablet Orally Once a day Not-Taking hydrALAZINE HCl 50 MG Tablet 1 tablet with food Orally 3 times per day Not-Taking hydroCHLOROthiazide 12.5 MG Capsule 1 capsule in the morning Orally Once a day , Notes to Pharmacist: Taking ValsartanNot-Taking Insulin Aspart 100 UNIT/ML Solution Pen-injector 22 units before breakfast, lunch and dinner Subcutaneous Three times a day Not-Taking metFORMIN HCl 500 MG Tablet 1 tablet with a meal Orally Once a day , Notes to Pharmacist: states was d/cNot-Taking Naproxen 500 MG Tablet 1 tablet with food or milk as needed Orally every 12 hrs , Notes to Pharmacist: Member reports not using anymoreNot-Taking Omeprazole 20 MG Capsule Delayed Release 1 capsule 30 minutes before morning meal Orally Once a day Not-Taking predniSONE 10 MG Tablet take 4 tabs daily for 3 day, then 3 tabs for 3 days, then 2 tabs for 3 days, then 1 tab for 3 days. Orally Once a day Not- Taking Pregabalin 100 MG Capsule 1 capsule Orally Once a day , Notes to Pharmacist: Member reports not using anymoreNot-Taking Tresiba FlexTouch 200 UNIT/ML Solution Pen-injector Sliding scale Subcutaneous Once a day , Notes to Pharmacist: Member reports not using anymore, switched to different InsulinNot-Taking Trulicity 1.5 MG/0.5ML Solution Pen-injector as directed Subcutaneous , Notes to Pharmacist: Member reports not using anymore, Switch to diffiennt Insulin * Allergies: L isinoprilno[Allergies Verified] Objective: * Vitals: * Physical Examination: Assessment: Plan: * Treatment: * Procedure Codes: * true * Date: Generated for Kelin chang/Elier/Christian on: 0 12/31/2024 03:05 PM EDT History and Physical Notes * HPI (History of Present Illness) Category Sub-Category Detail Notes Category Not es Medication Review Medication Review What service was performed?: Post-discharge medication review Visit/Encounter Type: Telephone Was the medication list in e CW updated?: Yes- there were no new or changed medications Were medication discrepancies/issues cintia ntified?: No What interventions have been performed?: Remedia reviewed, Member/caregiver education, Allergies Updated, No discrepancies found
[2024-12-31 11:58] VITALS: BP 184/80; PULSE 84; O2SAT 94; BMI 26.7
--- NOTE | 2024-12-31 11:58 | HO.NEPHOV ---
Vital Signs 12/31/24 11:58 Height 5 ft 9 in Weight 181 lb BMI 26.7 BP 184/80 H Blood Pressure Location Lt brachial Position Sitting Pulse 84 Pulse Source Pulse Oximeter Pulse Oximetry (%) 94 Oxygen Delivery Method Room Air Intake Visit Reasons: [facility] Discharge 12/16/24 High Bp/CONF Head Of English Required: No Accompanied by: Daughter Allergies lisinopril Allergy (Unknown, Verified 12/31/24 12:00) cough Medication List - Last Reconciled 12/31/24 by Tera Aguirre MD albuterol sulfate 90 mcg/actuation inhalation aspirin 81 mg PO DAILY bisacodyl (Dulcolax (bisacodyl)) 10 mg PO BEDTIME PRN blood sugar diagnostic (FreeStyle Lite Strips) As directed four times a day carvedilol 25 mg PO BID cholecalciferol (vitamin D3) 50 mcg PO DAILY clonidine HCl 0.1 mg PO BID dapagliflozin propanediol (Farxiga) 5 mg PO DAILY hydralazine 100 mg PO TID [insulin 62 units intradermal .after meals] insulin glargine (Lantus Solostar U-100 Insulin) 18 units subcut BEDTIME insulin lispro (Humalog U-100 Insulin) 22 units subcut .before meals peg 3350-electrolytes 236-22.74-6.74 -5.86 gram (Golytely) 240 mL PO Q10M 1 day pen needle, diabetic (BD Ultra-Fine Yuliana Pen Needle) As directed four times a day rosuvastatin 40 mg PO DAILY tamsulosin mg PO DAILY HPI Comments Details: 69 yr old man with long standing h/o HTN And DM for more than 5 years referred for CKD Creatinine was 1.2 in 2020. Creatinine has bumped up to 1.7 in June Currently on Bumex 0.5mg along with VAlsartan 320 mg 01/02/2024. 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 03/05/24 c/o Itching and rash x 3-4 weeks ;Farxiga was started 6 weeks ago. cr upto 2.98! 04/09/24 Still with itching; Off Farxiga; GAined 4 lbs ; c/o edema 06/11/24 Still has itching Has been taking Hydralazine QD instead of TID Lost 10-14 lbs with Bumex 08/06/24 No improving in Itching 09/03/24 69-year-old male seen for Chronic Kidney Disease and associated symptoms. He experiences persistent pruritus involving his eyes, scalp, arms, and legs, possibly linked to medication adjustments since the introduction of hydralazine. Attempts to modify medications have thus far provided insufficient relief for his symptoms. The patient also has a history of hypertension and diabetes mellitus with suboptimal glycemic control; his recent blood glucose was recorded at 238 mg/dL. He correlates dietary habits with blood sugar fluctuations and has been attempting to improve these. Concurrently, the patient reports peripheral edema with associated discoloration. His CKD is advancing, with a current kidney function level at an approximate GFR of 16%, a reduction from a previous measurement of 19%. The patient has brother on dialysis; his brother recently began treatment due to similar underlying conditions. These factors contribute to the patient?s concern about future renal interventions. 10/15/24 The patient is a 69-year-old male presenting with hypertension, chronic kidney disease, and anemia. Hypertension has been a persistent issue, with recent blood pressure readings of 156/80 mmHg, despite multiple antihypertensive medications including valsartan and clonidine. Previous trials with amlodipine and hydralazine were discontinued due to adverse effects such as edema and pruritus. Chronic kidney disease is attributed to long-standing diabetes, with current kidney function at approximately 14%. Anemia is suspected to be multifactorial, potentially due to gastrointestinal blood loss and decreased erythropoietin production from renal impairment. A stool test and colonoscopy are planned to investigate potential gastrointestinal bleeding. The patient will receive erythropoietin injections to address anemia related to renal insufficiency. 12/31/24 Recently hospitalized for accelerated HTN Had UE weakness- possible TIA s/p Blood transfusion Accompanied by daughter [facility] Medical History (Updated 11/19/24 @ 10:29 by Tera Aguirre MD) CKD (chronic kidney disease) Diabetes type 2, uncontrolled Essential hypertension Hypertriglyceridemia Hyperlipidemia LDL goal <100 Type 2 diabetes mellitus with diabetic polyneuropathy Cirrhosis of liver GERD (gastroesophageal reflux disease) Tubular adenoma of colon Chronic idiopathic constipation Surgical History History of penile implant History of gastric surgery H/O esophagogastroduodenoscopy Hx of colonoscopy (~10/2014) Family History Father No problems noted. Mother Esophageal cancer Maternal Grandfather Prostate cancer Diabetes Maternal Grandmother CVD (cardiovascular disease) Daughter Tubular adenoma Social History Household Members: Spouse Alcohol intake: current Alcohol intake frequency: former alcohol drinker Patient Tobacco Use Status: Former Tobacco user Physical Exam Vital Signs: Last Vital Signs Pulse 84 12/31/24 11:58 BP 184/80 H 12/31/24 11:58 Pulse Ox 94 12/31/24 11:58 Oxygen Delivery Method Room Air 12/31/24 11:58 BMI result Body Mass Index 26.7 Comfortable Neck supple no JVD. Lungs entry equal no rales. Heart S1-S2 heard no gallop or rub. Abdomen soft nontender. Neuro alert awake oriented. No asterixis. Extremities ; NO edema. Office Meds epoetin felipa-epbx 20,000 unit/mL injection solution Performing Provider: Tera Aguirre MD [facility] Administered by: Tera Aguirre MD on 12/31/24 13:22 Dose Route Admin Location Dispensed Lot Number Expiration Date [facility] Seal Delivery Vehicle Team Technician 20,000 unit subcut left arm 1 mL [id number] 06/20/26 7995-5847-11 [employer] [facility] Total Dispensed Waste 1 mL 0 % Results Reviewed Nephrology Results: Hgb, (14.0-18.0) 9.2 g/dl L 11/19/24 WBC, (4.8-10.8) 4.7 X10*3/uL L 11/19/24 Plt Count, (160-400) 186 X10*3/uL 11/19/24 Sodium, (135-145) 134 mmol/L L 11/19/24 Potassium, (3.3-5.1) 5.0 mmol/L 11/19/24 Chloride, (96-108) 104 mmol/L 11/19/24 Carbon Dioxide, (22-29) 22 mmol/L 11/19/24 BUN, (9-16) 52 mg/dL H 11/19/24 Creatinine, (0.5-1.4) 5.24 mg/dL H* 11/19/24 Calcium, (8.4-10.2) 8.4 mg/dL 11/19/24 PTH Intact, (8.7-77.1) 352.7 pg/mL H 09/02/24 Urine Protein, (Neg-Trace) >=1000 (4+) mg/dL H 10/03/24 Urine Creatinine 120.25 mg/dL 10/03/24 Renal US 09/28/23 Assessment & Plan Assessment & Plan (1) CKD (chronic kidney disease): Comment: Kidney biopsy on 12/18/2023 revealed nodular mesangial/diabetic glomerulosclerosis. Moderately active interstitial nephritis with eosinophils. Moderate chronic changes including global glomerulosclerosis 35%, tubular atrophy/interstitial fibrosis 30%. Vascular sclerosis moderate with focal hyalinosis. Code(s): N18.9 - Chronic kidney disease, unspecified Category: Medical (2) BPH w urinary obs/LUTS: Code(s): N40.1 - Benign prostatic hyperplasia with lower urinary tract symptoms; N13.8 - Other obstructive and reflux uropathy Category: Medical (3) Essential hypertension: Code(s): I10 - Essential (primary) hypertension Category: Medical (4) Type 2 diabetes mellitus with diabetic polyneuropathy: Code(s): E11.42 - Type 2 diabetes mellitus with diabetic polyneuropathy Category: Medical (5) Cirrhosis of liver: Comment: 2018 hepatitis a B and C screens negative Code(s): K74.60 - Unspecified cirrhosis of liver Category: Medical (6) Chronic kidney disease (CKD) stage G5/A1, glomerular filtration rate (GFR) less than or equal to 15 mL/min/1.73 square meter and albuminuria creatinine ratio less than 30 mg/g: Comment: Kidney biopsy on 12/18/2023 revealed nodular mesangial/diabetic glomerulosclerosis. Moderately active interstitial nephritis with eosinophils. Moderate chronic changes including global glomerulosclerosis 35%, tubular atrophy/interstitial fibrosis 30%. Vascular sclerosis moderate with focal hyalinosis. Code(s): N18.5 - Chronic kidney disease, stage 5 Category: Medical (7) Tubular adenoma of colon: Comment: 2021 scope equals large TA repeated 3 years aeb Code(s): D12.6 - Benign neoplasm of colon, unspecified Category: Medical (8) Chronic idiopathic constipation: Comment: Now managed on Flax Code(s): K59.04 - Chronic idiopathic constipation Category: Medical (9) Anemia due to chronic kidney disease: Code(s): N18.9 - Chronic kidney disease, unspecified; D63.1 - Anemia in chronic kidney disease Category: Medical Plan . 69 yr old man with CKD in a setting of DM and HTN Diabetic nephropathy by biopsy No evidence of obstruction based on recent imaging Will benefit from SGLT-2 inhibitors Added Farxiga 5 mg daily ( dec 2023) Was on Hold due to itching Willing to try again- will restart today 10/15/24 Goal is to slow the progression of renal disease Maintain BP < 130/80 and A1c < 7% Avoid nephrotoxins including NSAIDS HTN BP sub optimal but better controlled Keep current meds Treated with a course of Prednisone - No improvement Rash resolved Hydroxyzine 10 mg PRN- no improvement in itching-Will DC 10/15/24 I discussed with the patient the importance of managing hypertension with the current medications and monitoring for any side effects. We reviewed the need for dietary changes to manage potassium levels and started Lokelma 5 gm PO weekly The plan for addressing anemia includes erythropoietin injections and a gastrointestinal workup to rule out bleeding. I advised the patient to meet with the dialysis team to explore future dialysis options, given the current kidney function status. 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 Discussed dialysis options HE chose [facility] Will arrange for insertion of Tenckoff catheter and initiate PD ( He has already met with PD nurse for education) Resistant HTN Add NORVASC 5 g QD Watch for edema Anemia Administered Retacrit 76430 U sq - tolerated well Next dose in 2 weeks All questions answered Orders: Orders AMB Epoetin Injection Practice Supplied Today Tera Aguirre MD N40.1 - Benign prostatic hyperplasia with lower urinary tract symptoms Blood Urea Nitrogen 2 Weeks Tera Aguirre MD N18.4 - Chronic kidney disease, stage 4 (severe), N18.5 - Chronic kidney disease, stage 5 Creatinine 2 Weeks Tera Aguirre MD N18.5 - Chronic kidney disease, stage 5 Hemoglobin 2 Weeks Tera Aguirre MD N18.5 - Chronic kidney disease, stage 5 Referrals Interventional Radiology Referral Tera Aguirre MD N18.5 - Chronic kidney disease, stage 5 Medications: New amlodipine 5 mg PO DAILY 30 tabs 1RF Tera Aguirre MD Changed From bisacodyl (Dulcolax (bisacodyl)) 10 mg (2 x 5 mg) PO BEDTIME 2 days 4 tabs 0RF To bisacodyl (Dulcolax (bisacodyl)) 10 mg PO BEDTIME PRN SIXTO [place] Coding Level of Care Code Est Pt Level 4 (05104) Diagnoses CKD (chronic kidney disease) N18.9 BPH w urinary obs/LUTS N40.1; N13.8 Essential hypertension I10 Type 2 diabetes mellitus with diabetic polyneuropathy E11.42 Cirrhosis of liver K74.60 Chronic kidney disease (CKD) stage G5/A1, glomerular filtration rate (GFR) less than or equal to 15 mL/min/1.73 square meter and albuminuria creatinine ratio less than 30 mg/g N18.5 Tubular adenoma of colon D12.6 Chronic idiopathic constipation K59.04 Anemia due to chronic kidney disease N18.9; D63.1
--- OUTSIDE RECORDS SUMMARY | 2024-12-31 15:05 | XMS_ITS | Clinical Summary ---
Author Organization 175 [facility] Address [address] [place] [address] Phone Care Team Providers Care Live Hanger Name Role Phone Rashid Steele Primary Care Provider [phone] Allergies Active Allergy Reactions Criticality Noted Date Comments Lisinopril Cough High 10/15/2023 Medications aspirin 81 mg EC tablet Take 1 tablet (81 mg total) by mouth daily. 12/05/19 25 Active amoxicillin-clav ulanate (AUGMENTIN) 875-125 mg per tablet - Route: Take by mouth. - Oral 03/05/20 18 Active albuterol HFA (PROAIR HFA ; PROVENTIL HFA ; VENTOLIN HFA) 90 mcg/actuation inhaler Inhale 2 puffs by mouth. 05/14/19 25 Active amLODIPine (NORVASC) 5 mg tablet Take 1 tablet (5 mg total) by mouth 1 (one) time each day. Active ammonium lactate (LAC-HYDRIN) 12 % lotion Apply topically. 05/30/19 25 Active atorvastatin (LIPITOR) 80 mg tablet Take 40 mg by mouth. 02/22/20 24 Active benzonatate (TESSALON) 100 mg capsule Take 1 capsule (100 mg total) by mouth 3 times daily as needed. 05/14/19 25 Active bumetanide (BUMEX) 0.5 mg tablet Take 1 tablet (0.5 mg total) by mouth daily. 04/09/20 24 Active cetirizine (ZyrTEC) 10 mg tablet Take 1 tablet (10 mg total) by mouth daily. 05/14/19 25 Active cholecalciferol (VITAMIN D-3) 50 mcg (2,000 unit) tablet Take 1 tablet (2,000 Units total) by mouth. 03/28/20 24 Active Farxiga 5 mg tablet 1 tablet (5 mg total) 1 (one) time each day at the same time. 12/05/19 25 Active hydrALAZINE (APRESOLINE) 50 mg tablet Take 1 tablet (50 mg total) by mouth 2 (two) times a day. 12/04/19 25 Active trospium (SANCTURA) 20 mg tablet Take 1 tablet (20 mg total) by mouth 2 (two) times a day. 05/06/19 25 Active tamsulosin (FLOMAX) 0.4 mg 24 hr capsule Take 1 capsule (0.4 mg total) by mouth at bedtime. at bedtime 12/04/19 Active linaGLIPtin 5 mg tablet Take 1 tablet (5 mg total) by mouth daily. 04/05/20 18 Active carvediloL (COREG) 25 mg tablet Take 1 tablet (25 mg total) by mouth 2 (two) times a day with meals. 12/05/19 25 Active clopidogreL (PLAVIX) 75 mg tablet Take 1 tablet (75 mg total) by mouth 1 (one) time each day. 12/05/19 Active cloNIDine (CATAPRES) 0.1 mg tablet Take 1 tablet (0.1 mg total) by mouth 2 (two) times a day. Active omeprazole (PriLOSEC) [address] capsule Route: Take 1 Capsule by mouth daily. - Oral 2024 Discontinued(F ormulary change) valsartan (DIOVAN) 160 mg tablet Route: Take 1 Tablet by mouth daily. - Oral 2024 Discontinued(F ormulary change) diclofenac (VOLTAREN) 1 % topical gel expireed 03/27/20 24 2024 Discontinued(F ormulary change) lisinopril-hydro CHLOROthiazide (PRINZIDE,ZESTOR ETIC) 10-12.5 mg per tablet Take 1 tablet by mouth daily. 2024 Discontinued(F ormulary change) insulin glargine (Lantus U-100 Insulin) 100 unit/mL injection 12 Units at bedtime. 12/04/19 25 2024 Discontinued(F ormulary change) HYDROcodone-acet aminophen (NORCO) 5-325 mg per tablet - Route: Take 1 Tablet by mouth. - Ora 03/05/202024 Discontinued(F ormulary change) acetaminophen (TYLENOL) 500 mg tablet Take 2 tablets (1,000 mg total) by mouth. 10/29/192024 Discontinued(F ormulary change) bismuth subsalicylate 525 mg/15 mL suspension Take by mouth. 03/12/202024 Discontinued(F ormulary change) cloNIDine (CUCRSAOB-GPH-3) 0.2 mg/[address] on the skin. 04/30/192024 Discontinued(F ormulary change) glucose 4 gram chewable tablet Chew 4 tablets (16 g total). 12/26/192024 Discontinued(F ormulary change) dicyclomine (BENTYL) 10 mg capsule 1 capsule (10 mg total) every 6 hours. 2024 Discontinued(F ormulary change) docusate sodium (COLACE) 50 mg capsule Take 1 capsule (50 mg total) by mouth. 02/08/202024 Discontinued(F ormulary change) fluticasone propionate (FLONASE) 50 mcg/actuation nasal spray Administer 1 spray into affected nostril(s) daily. 05/14/192024 Discontinued(F ormulary change) hydroCHLOROthiaz cintia (MICROZIDE) 12.5 mg capsule 1 (one) time each day at the same time. 2024 Discontinued hydrOXYzine HCL (ATARAX) 10 mg tablet TAKE 1 TABLET BY MOUTH DAILY NEEDED FOR ITCHING 2024 Discontinued(F ormulary change) insulin aspart (NovoLOG) 100 unit/mL injection Inject under the skin. 2024 Discontinued(F ormulary change) insulin aspart protamine-insuli n aspart (NovoLOG 70/30) 100 unit/mL (70-30) injection Inject under the skin. 02/22/20 24 2024 Discontinued(F ormulary change) insulin glargine-yfgn 100 unit/mL (3 mL) injection Inject under the skin. 06/23/192024 Discontinued(F ormulary change) insulin lispro 100 unit/mL injection Inject 2-10 Units under the skin 3 (three) times a day before meals. -Administer within 15 minutes of a meal 12/05/192024 Discontinued(F ormulary change) Active Problems Problem Noted Date Diagnosed Date CVA (cerebral vascular accident) ([facility] V24, [facility] V28) 12/03/2024 Spinal stenosis of cervical region with radiculo juan 08/15/2024 Alcoholic liver disease ([facility] V24) 08/08/2024 Overview (08/08/2024): Apr 20, 2008 Entered By: RASHID STEELE Comment: +Trace Ascites per US, ABD, WHAV, FEB 28 Apr 20, 2008 Entered By: RASHID STEELE Comment: US Neg for Hepatoma or Intrahepatic Mass Apr 20, 2008 Entered By: RASHID STEELE Comment: UGI Bleed in 2006 ?? Hepatic cirrhosis ([facility]/HCC V24, [facility] V28) Overview (08/08/2024): Dec 01, 2020 Entered By: RASHID STEELE Comment: Cirrhosis Liver Suspected as of DEC 11; Pt. sees Private GI on His Own Dec 01, 2020 Entered By: RASHID STEELE Comment: GI is at [facility]; , FAX [phone] Dec 01, 2020 Entered By: RASHID STEELE Comment: Patient. Wants [place] to Pay for the CT of ABD that GI at [facility] Desires Jul 22, 2021 Entered By: RASHID STEELE Comment: Next Hepatology appt., w/ Imaging at [facility] in Mid - AUG 12 Oct 14, 2021 Entered By: RASHID STEELE Comment: Per Pt., Liver Disease Stable; Not Progressed Oct 14, 2021 Entered By: RASHID STEELE Comment: Chooses Private Care for This Oct 28, 2021 Entered By: RASHID STEELE Comment: LFT's WNL OCTOBER 12 May 31, 2022 Entered By: RASHID STEELE Comment: Still Sees GI/Hepatology at [facility]; Next Appt JUN 15 May 31, 2022 Entered By: RSAHID STEELE Comment: US pending at [facility] JUN 15 Dec 01, 2022 Entered By: RASHID STEELE Comment: US, Elastography Liiver DEC 13 Dawson: Dec 01, 2022 Entered By: RASHID STEELE [...] & Plan (08/15/2024 1:26 PM EDT): Mr. Sam continues to suffer with right arm pain, [...] & Plan (08/08/2024 2:16 PM EDT): Mr. Sam describes about 6 weeks of weakness with [...] there was foraminal stenosis. Of note, Mr. Sam also has diabetes and hypertension. 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, bilateral (CMS/HCC V24, [facility] V28) 07/25/2024 Type 2 diabetes mellitus wit [...] RASHID STEELE Comment: US, Aorta DEC 13 Dawson: no AAA Jul 09, 2023 Entered By: RASHID STEELE Comment: hypertension Essential (primary) hypertension 07/25/2024 Postoperative infection 05/19/2024 Trigger finger of right thumb 05/19/2024 Encounters Date Type Department Care Team Description 12/08/2024 Plan of Care Documentation [facility] In[facility] [address] [place] [address] 12/03/2024 5:42 PM EDT - 12/13/2024 11:45 AM EDT Hospital Encounter [facility] [address] [place] [id number] Bre Garcia DO CVA (cerebral vascular accident) ([facility] V24, [facility] V28) [I63.9] (Primary Dx) Discharge Disposition: Short Term Hospital from Last 3 Months Immunizations Name Administration [...] Medical History Medical History Date Comments Diabetes ([facility] V24, [facility] V28) Arthritis High blood pressure Social History Tobacco Use Types Packs/Day Years Used Date Smoking Tobacco: Never Passive Smoke Exposure: Never Smokeless Tobacco: Never Tobacco Cessation:Counseling Given: Not Answered Health Literacy Answer Date Recorded How often do you need to hav e someone help you when you read instructions, pamphlets, or other written material from your doctor or pharmacy? Rarely 12/04/2024 Caregiver: How often do you need to have someone help you when you read instructions, pamphlets, or other written material from your doctor or pharmacy? Not on file 12/04/2024 Transportation Answer Date Recorded Has the lack of transportati on kept you from meetings, work, or from getting things needed for daily living? No Has the lack of transportati on kept you from medical appointments or from getting medications? No 12/04/2024 Social Isolation Answer Date Recorded How often do you feel lonely or isolated from th ose around you? Rarely 12/04/2024 Food Risk Answer Date Recorded Within the past 12 months we worried whether our food would run out before we got money to buy more. Not asked 12/11/2024 Within the past 12 months th e food we bought just didn't last and we didn't have money to get more. Not asked 12/11/2024 Interpersonal Safety Answer Date Record ed Physical Abuse 12/03/2024 Verbal Abuse 12/03/2024 Sex and Gender Information Value Date Recorded Sex Assigned at Male 05/07/2024 12:12 PM EST Legal Sex Male 3:58 PM EST Gender Identity Male 05/07/2024 12:12 PM EST Sexual Orientation Straight 05/07/2024 12 :12 PM EST Obstetrics History Last Filed Vital Signs Vital Sign Reading Time Taken Comments Blood Pressure 101/60 12/13/2024 11:34 AM EDT Pulse 72 12/13/2024 11:34 AM EDT Temperature 37.4 C (99.3 F) 12/13/2024 10:04 AM EDT Respiratory Rate 16 12/13/2024 11:34 AM EDT Oxygen Saturation 100% 12/13/2024 11:34 AM EDT Inhaled Oxygen Concentration - - Weight 81.3 kg (179 lb 3.2 oz) 12/06/2024 1:00 PM EDT Height 185 cm (6' 0.84 ) 12/02/2024 11:06 AM EDT Body Mass Index 23.75 12/02/2024 11:06 AM EDT Plan of Treatment Health Maintenance Due Date Last Done Comments Diabetes: Annual Foot Exam 1966 Diabetes: Annual Retina Eye Exam 1966 Hepatitis A Vaccines (1 of 2 - Risk 2-dose series) 07/13/1975 Hepatitis B Vaccines (1 of 3 - Risk 3-dose series) 2016 Colorectal Cancer Screening: Colonoscopy 03/22/2022 Hepatitis C Screening 03/22/2022 Medicare Annual Wellness Visit 03/22/2022 Zoster Vaccines (2 of 2) 04/25/2023 02/28/2023, 07/22 Diabetes: Blood Sugar Control Test (HGBA1C) 11/03/2024 05/06/2024 COVID-19 Vaccine (6 - Mixed Product risk season) 2024 01/23/2024, 01/31/2022, 04/02/2021, Additional history exists Influenza Vaccine (#1) 2024 , 01/15/2023, 03/15/2022, Additional history exists Social Influencers of Health Screening 12/11/2025 12/11/2024 Falls Risk Assessment 12/12/2025 12/12/2024 Hypertension/CHF/CAD Annual BMP Blood Test 12/13/2025 12/13/2024, 12/12/2024, 12/10/2024, Additional history exists Cholesterol Screening (Lipid Panel) 05/06/2029 05/06/2024, 05/06/2024, 08/09/2017 DTaP,Tdap,and Td Vaccines (4 - Td or Tdap) 07/27/2032 07/27/2022, 09/30/2014, 11/25/2010 MMR Vaccines Aged Out 03/24/1996 No longer eligi ble based on patient's age to complete this topic Pneumococcal Vaccine: 50+ Years Completed 07/27/2022, 07/22/2021, 12/07/2016, Additional history exists RSV Immunization Adult Patients Completed 04/03/2023 Depression Screening Completed 12/04/2024 HIB Vaccines Aged Out No longer eligi [...] Procedure Name Priority Date/Time Associated Diagnosis Comments TYPE AND SCREEN Routine 12/13/2024 10:28 AM EDT MAGNESIUM STAT 12/13/2024 10:28 AM EDT COMPLETE BLOOD COUNT STAT 12/13/2024 10:28 AM EDT BASIC METABOLIC PANEL STAT 12/13/2024 10:28 AM EDT RESPIRATORY VIRUS PANEL MOLECULAR STUDY STAT 12/13/2024 10:28 AM EDT POCT GLUCOSE BLOOD Routine 12/13/2024 10 :[address] HEAD STROKE WO CONTRAST STAT 12/13/2024 8:39 AM EDT ECG 12-LEAD Routine 12/13/2024 7:53 AM EDT POCT GLUCOSE BLOOD Routine 12/13/2024 7: 21 AM EDT POCT GLUCOSE BLOOD Routine 12/12/2024 8: 33 PM EDT POCT GLUCOSE BLOOD Routine 12/12/2024 3: 54 PM EDT POCT GLUCOSE BLOOD Routine 12/12/2024 11 :10 AM EDT POCT GLUCOSE BLOOD Routine 12/12/2024 7: 28 AM EDT COMPLETE BLOOD COUNT Routine 12/12/2024 5:04 AM EDT COMPREHENSIVE METABOLIC PANEL Routine 12/12/2024 5:04 AM EDT POCT GLUCOSE BLOOD Routine 12/11/2024 8: 14 PM EDT POCT GLUCOSE BLOOD Routine 12/11/2024 4: 14 PM EDT POCT GLUCOSE BLOOD Routine 12/11/2024 11 :47 AM EDT POCT GLUCOSE BLOOD Routine 12/11/2024 7: 21 AM EDT POCT GLUCOSE BLOOD Routine 12/10/2024 8: 29 PM EDT POCT GLUCOSE BLOOD Routine 12/10/2024 4: 31 PM EDT POCT GLUCOSE BLOOD Routine 12/10/2024 11 :32 AM EDT POCT GLUCOSE BLOOD Routine 12/10/2024 7: 45 AM EDT FERRITIN Add-On 12/10/2024 5:19 AM EDT IRON Add-On 12/10/2024 5:19 AM EDT COMPLETE BLOOD COUNT Routine 12/10/2024 5:19 AM EDT COMPREHENSIVE METABOLIC PANEL Routine 12/10/2024 5:19 AM EDT POCT GLUCOSE BLOOD Routine 12/09/2024 8: 25 PM EDT POCT GLUCOSE BLOOD Routine 12/09/2024 3: 49 PM EDT XR CHEST 2 VIEWS Routine 12/09/2024 2:20 PM EDT CAN URINE CULTURE TUBE Routine 12/09/2024 1:59 PM EDT URINALYSIS WITH REFLEX MICROSCOPIC AND CULTURE Routine 12/09/2024 1:59 PM EDT URINALYSIS WITH REFLEX MICROSCOPIC AND CULTURE Routine 12/09/2024 1:59 PM EDT POCT GLUCOSE BLOOD Routine 12/09/2024 11 :12 AM EDT RESPIRATORY VIRUS PANEL MOLECULAR STUDY Routine 12/09/2024 9:12 AM EDT POCT GLUCOSE BLOOD Routine 12/09/2024 7: 25 AM EDT MAGNESIUM Routine 12/09/2024 5:30 AM EDT PHOSPHORUS Routine 12/09/2024 5:30 AM EDT BASIC METABOLIC PANEL Routine 12/09/2024 5:30 AM EDT COMPLETE BLOOD COUNT Routine 12/09/2024 5:30 AM EDT POCT GLUCOSE BLOOD Routine 12/08/2024 7: 52 PM EDT POCT GLUCOSE BLOOD Routine 12/08/2024 3: 26 PM EDT POCT GLUCOSE BLOOD Routine 12/08/2024 11 :07 AM EDT POCT GLUCOSE BLOOD Routine 12/08/2024 7: 52 AM EDT POCT GLUCOSE BLOOD Routine 12/07/2024 7: 59 PM EDT POCT GLUCOSE BLOOD Routine 12/07/2024 3: 49 PM EDT POCT GLUCOSE BLOOD Routine 12/07/2024 11 :13 AM EDT POCT GLUCOSE BLOOD Routine 12/07/2024 7: 27 AM EDT POCT GLUCOSE BLOOD Routine 12/06/2024 7: 45 PM EDT POCT GLUCOSE BLOOD Routine 12/06/2024 4: 13 PM EDT POCT GLUCOSE BLOOD Routine 12/06/2024 11 :22 AM EDT POCT GLUCOSE BLOOD Routine 12/06/2024 7: 26 AM EDT POCT GLUCOSE BLOOD Routine 12/05/2024 7: 51 PM EDT POCT GLUCOSE BLOOD Routine 12/05/2024 3: 43 PM EDT POCT GLUCOSE BLOOD Routine 12/05/2024 3: 00 PM EDT POCT GLUCOSE BLOOD Routine 12/05/2024 11 :16 AM EDT POCT GLUCOSE BLOOD Routine 12/05/2024 7: 23 AM EDT POCT GLUCOSE BLOOD Routine 12/04/2024 8: 09 PM EDT POCT GLUCOSE BLOOD Routine 12/04/2024 4: 29 PM EDT POCT GLUCOSE BLOOD Routine 12/04/2024 11 :14 AM EDT POCT GLUCOSE BLOOD Routine 12/04/2024 7: 20 AM EDT CBC WITH AUTO DIFFERENTIAL Routine 12/04/2024 6:05 AM EDT COMPREHENSIVE METABOLIC PANEL Routine 12/04/2024 6:05 AM EDT CBC AND DIFFERENTIAL Routine 12/04/2024 6:05 AM EDT PROTHROMBIN TIME WITH INR Routine 12/04/2024 6:05 AM EDT POCT GLUCOSE BLOOD Routine 12/03/2024 7: 49 PM EDT from Last 3 Months Results * Respiratory virus panel molecular study (12/13/2024 10:28 AM EDT) Only the most recent of2 resultswithin the time period is included. Pathologist [facility] Adenovirus Detection by PCR Not Detected Not Detected LAB MICROBIOLOGY METHOD 12/13/2024 12:22 PM EDT [facility] Influenza A PCR Not Detected Not Detected LAB MICROBIOLOGY METHOD 12/13/2024 12:22 PM EDT [facility] Influenza B PCR Not Detected Not Detected LAB MICROBIOLOGY METHOD 12/13/2024 12:22 PM EDT [facility] Coronavirus 229E Not Detected Not Detected LAB MICROBIOLOGY METHOD 12/13/2024 12:22 PM EDT [facility] Coronavirus HKU1 Not Detected Not Detected LAB MICROBIOLOGY METHOD 12/13/2024 12:22 PM EDT [facility] Coronavirus OC43 Not Detected Not Detected LAB MICROBIOLOGY METHOD 12/13/2024 12:22 PM EDT [facility] Coronavirus NL63 Not Detected Not Detected LAB MICROBIOLOGY METHOD 12/13/2024 12:22 PM EDT [facility] Parainfluenza Virus 1 Not Detected Not Detected LAB MICROBIOLOGY METHOD 12/13/2024 12:22 PM EDT [facility] Parainfluenza Virus 2 Not Detected Not Detected LAB MICROBIOLOGY METHOD 12/13/2024 12:22 PM EDT [facility] Parainfluenza Virus 3 Not Detected Not Detected LAB MICROBIOLOGY METHOD 12/13/2024 12:22 PM EDT [facility] Parainfluenza Virus 4 Not Detected Not Detected LAB MICROBIOLOGY METHOD 12/13/2024 12:22 PM EDT [facility] RSV PCR Not Detected Not Detected LAB MICROBIOLOGY METHOD 12/13/2024 12:22 PM EDT [facility] Human Metapneumovirus A and B Not Detected Not Detected LAB MICROBIOLOGY METHOD 12/13/2024 12:22 PM EDT [facility] Rhinovirus/Entero virus Not Detected Not Detected LAB MICROBIOLOGY METHOD 12/13/2024 12:22 PM EDT [facility] Bordetella pertussis Not Detected Not Detected LAB MICROBIOLOGY METHOD 12/13/2024 12:22 PM EDT [facility] Bordetella parapertussis Not Detected Not Detected LAB MICROBIOLOGY METHOD 12/13/2024 12:22 PM EDT [facility] Mycoplasma pneumo by PCR Not Detected Not Detected LAB MICROBIOLOGY METHOD 12/13/2024 12:22 PM EDT [facility] Chlamydia pneumoniae Not Detected Not Detected LAB MICROBIOLOGY METHOD 12/13/2024 12:22 PM EDT [facility] SARS COV-2 Not Detected Not Detected LAB MICROBIOLOGY METHOD 12/13/2024 12:22 PM EDT [facility] Swab Both anterior nares / Unknown Non-blood Collection / Unknown 12/13/2024 10:28 AM EDT 12/13/2024 11:25 AM EDT Narrative [facility] - 12/13/2024 12:22 PM EDT Testing was performed using the [employer] Respiratory Pathogen PCR Assay. All results must be correlated with the clinical findings. Results should not be used as the sole basis for diagnosis. False Negative results may occur from the presence of sequence variants in the region targeted by the assay or the presence of inhibitors. Results may be affected by concurrent antiviral/antimicrobial therapy or levels of organisms that are below the limit of detection. us Bre Garcia DO LAB MICROBIOLOGY - GENERA L ORDERABLES Final Result [facility] [address] [place] [address], [place] [phone] * (ABNORMAL) Complete blood count (12/13/2024 10:28 AM EDT) Only the most recent of4 resultswithin the time period is included. WBC 15.0(H) 4.8 - 10.8 K/mcL LAB HEMETOLOGY METHOD 12/13/2024 11:31 AM EDT [facility] RBC 2.60(L) 4.50 - 5.50 M/mcL LAB HEMETOLOGY METHOD 12/13/2024 11:31 AM EDT [facility] Hemoglobin 8.2(L) 13.5 - 17.5 g/dL LAB HEMETOLOGY METHOD 12/13/2024 11:31 AM EDT [facility] Hematocrit 25.0(L) 42.0 - 54.0 % LAB HEMETOLOGY METHOD 12/13/2024 11:31 AM EDT [facility] MCV 96.5 79.0 - 98.0 FL LAB HEMETOLOGY METHOD 12/13/2024 11:31 AM EDT [facility] MCH 31.7 27.0 - 32.0 pcg LAB HEMETOLOGY METHOD 12/13/2024 11:31 AM EDT [facility] MCHC 32.8 32.0 - 37.0 g/dL LAB HEMETOLOGY METHOD 12/13/2024 11:31 AM EDT [facility] RDW 11.7 11.0 - 15.0 % LAB HEMETOLOGY METHOD 12/13/2024 11:31 AM EDT [facility] Platelets 311 130 - 400 K/mcL LAB HEMETOLOGY METHOD 12/13/2024 11:31 AM EDT [facility] MPV 10.7 7.0 - 11.0 FL LAB HEMETOLOGY METHOD 12/13/2024 11:31 AM EDT [facility] NRBC 0.0 <1.0 % LAB HEMETOLOGY METHOD 12/13/2024 11:31 AM T [facility] NRBC Absolute 0.00 <0.10 K/mcL LAB HEMETOLOGY METHOD 12/13/2024 11:31 AM T [facility] Blood Venous blood specimen / Unknown Venipuncture / Unknown 12/13/2024 10:28 AM EDT 12/13/2024 11:25 AM EDT Shira Holliday NP LAB BLOOD ORDERABLES Final Result [facility] [address] [place] [address], * Type and screen (12/13/2024 10:28 AM EDT) ABO Group O 12/13/2024 1:07 PM EDT [facility] Rh Type Positive 12/13/2024 1:07 PM EDT [facility] Antibody Screen Negative 12/13/2024 1:07 PM EDT [facility] Blood Venous blood specimen / Unknown Venipuncture / Unknown 12/13/2024 10:28 AM EDT 12/13/2024 11:25 AM EDT Shira Gerson MarcusFranklin LAB BLOOD BANK TEST ORDERABLES Final Result Performing Organization Address City/[facility]/ZIP Co de Phone Number [facility] [address] [place] [address], * (ABNORMAL) Magnesium (12/13/2024 10:28 AM EDT) Only the most recent of2 resultswithin the time period is included. Magnesium 1.7(L) 1.9 - 2.6 mg/dL LAB CHEMISTRY METHOD 12/13/2024 11:46 AM EDT [facility] Blood Venous blood specimen / Unknown Venipuncture / Unknown 12/13/2024 10:28 AM EDT 12/13/2024 11:25 AM EDT [facility] LAB BLOOD ORDERABLES Final Result [facility] [address] [place] [address], * (ABNORMAL) Basic metabolic panel (12/13/2024 10:28 AM EDT) Only the most recent of2 resultswithin the time period is included. Sodium 134 133 - 145 mmol/L LAB CHEMISTRY METHOD 12/13/2024 11:51 AM [facility] Potassium 4.8 3.5 - 5.5 mmol/L LAB CHEMISTRY METHOD 12/13/2024 11:51 AM [facility] Chloride 105 96 - 110 mmol/L LAB CHEMISTRY METHOD 12/13/2024 11:51 AM [facility] CO2 19(L) 21 - 32 mmol/L LAB CHEMISTRY METHOD 12/13/2024 11:51 AM [facility] Anion Gap 10 3 - 11 LAB CHEMISTRY METHOD 12/13/2024 11:51 AM [facility] Glucose 141(H) 70 - 100 mg/dL LAB CHEMISTRY METHOD 12/13/2024 11:51 AM [facility] BUN 80(H) 5 - 25 mg/dL LAB CHEMISTRY METHOD 12/13/2024 11:51 AM [facility] Creatinine 5.52(H) 0.70 - 1.30 mg/dL LAB CHEMISTRY METHOD 12/13/2024 11:51 AM [facility] eGFR 11(L) >=60 mL/min/1. 73m2 LAB CHEMISTRY METHOD 12/13/2024 11:51 AM [facility] Comment:Calculation based on the Chronic Kidney Disease Epidemiology Collaboration (CKD-EPI) equation refit without adjustment for race. BUN/Creatinine Ratio 14.5 LAB CHEMISTRY METHOD 12/13/2024 11:51 AM [facility] Calcium 8.3(L) 8.5 - 10.5 mg/dL LAB CHEMISTRY METHOD 12/13/2024 11:51 AM [facility] Blood Venous blood specimen / Unknown Venipuncture / Unknown 12/13/2024 10:28 AM EDT 12/13/2024 11:25 AM EDT Shira Holliday NP LAB BLOOD ORDERABLES Final Result Performing Organization Address [facility] Co de Phone Number [facility] [address] [place] [address], * (ABNORMAL) POCT Glucose, blood (12/13/2024 10:01 AM EDT) Only the most recent of40 resultswithin the time period is included. Glucose POCT 157(H) 70 - 100 mg/dL 12/13/2024 10:02 AM EDT [facility] Blood Capillary blood specimen / Unknown 12/13/2024 10:01 AM EDT 12/13/2024 10:03 AM EDT Bre Garcia DO LAB POINT OF CARE TEST DOCKED DEVICE UNSOLICITED RESULTS Final Result Performing Organization Address [facility] de Phone Number [facility] [address] [place] [address], * CT Head Stroke wo Contrast (12/13/2024 8:39 AM EDT) Anatomical Region Laterality Modality Head and Neck Computed Tomogra phy 12/13/2024 8:43 AM EDT Impressions 12/13/2024 8:46 AM EDT No intracranial hemorrhage. Findings communicated to Shira Holliday at approximately 8:45 AM via secure text. -------- FINAL REPORT -------- Dictated By: Porfirio Meadows Dictated Date: 12/13/2024 08:43 ET Assigned Physician: Porfirio Meadows Reviewed and Electronically Signed By: Porfirio Meadows Signed Date: 12/13/2024 08:46 ET Workstation ID: [id number] Transcribed By: Self Edit Transcribed Date: 12/13/2024 08:43 ET Narrative 12/13/2024 8:46 AM EDT PROCEDURE: HEAD CT INDICATION: Neuro deficit, acute, stroke suspected TECHNIQUE: CT of the head without intravenous contrast. Multiplanar reformats. The examination was performed utilizing dose reduction techniques. Total DLP 809 COMPARISON: No priors available. FINDINGS: No acute territorial infarct, mass effect, or intracranial hemorrhage. Tiny lacunar infarct left cerebellum. Confluent periventricular and subcortical white matter hypodensities are most likely related to chronic small vessel ischemic change. CSF spaces commensurate for degree of volume loss. No hydrocephalus. Visualized paranasal sinuses are clear. Mastoid air cells are clear. No calvarial fracture. Procedure Note Porfirio Meadows MD - 12/13/2024 PROCEDURE: HEAD CT INDICATION: Neuro deficit, acute, stroke suspected TECHNIQUE: CT of the head without intravenous contrast. Multiplanarreformats. The examination was performed utilizing dose reductiontechniques. Total DLP 809 COMPARISON: No priors available. FINDINGS: No acute territorial infarct, mass effect, or intracranial hemorrhage.Tiny lacunar infarct left cerebellum. Confluent periventricular and subcortical white matter hypodensities aremost likely related to chronic small vessel ischemic change. CSF spaces commensurate for degree of volume loss. No hydrocephalus. Visualized paranasal sinuses are clear. Mastoid air cells are clear. No calvarial fracture. IMPRESSION: No intracranial hemorrhage. Findings communicated to Shira Holliday at approximately 8:45 AMvia secure text. -------- FINAL REPORT -------- Dictated By: oPrfirio Meadows Dictated Date: 12/13/2024 08:43 ET Assigned Physician: Porfirio Meadows Reviewed and Electronically Signed By: Porfirio Meadows Signed Date: 12/13/2024 08:46 ET Workstation ID: [id number] Transcribed By: Self Edit Transcribed Date: 12/13/2024 08:43 ET Shira Holliday OCCUPATIONAL MEDICINE OFFICER IMG CT PROCEDURES Fi nal Result * ECG 12 lead (12/13/2024 7:53 AM EDT) Ventricular Rate ECG 103 BPM GEMUSE Atrial Rate 103 BPM GEMUSE P-R Interval 176 ms GEMUSE QRS Duration 82 ms GEMUSE Q-T Interval 310 ms GEMUSE QTc 406 ms GEMUSE P Wave [place] 48 degrees GEMUSE R [place] 3 degrees GEMUSE T [place] 73 degrees GEMUSE ECG Interpretation Sinus tachycardia with occasional Premature ventricular complexes Possible Left atrial enlargement Nonspecific T wave abnormality Abnormal ECG When compared with ECG of 28-OCT-2023 22:22, Premature ventricular complexes are now Present Nonspecific T wave abnormality now evident in Lateral leads Confirmed by ALEJANDRO MICHAEL ([id number]) on 12/14/2024 8:20:15 AM GEMUSE 12/13/2024 7:53 AM EDT 12/14/2024 8:20 AM EDT Shira Holliday NP ECG ORDERABLES Catalina walls Result GEMUSE * (ABNORMAL) Comprehensive metabolic panel (12/12/2024 5:04 AM EDT) Only the most recent of3 resultswithin the time period is included. Sodium 134 133 - 145 mmol/L LAB CHEMISTRY METHOD 12/12/2024 5:48 AM [facility] Potassium 5.3 3.5 - 5.5 mmol/L LAB CHEMISTRY METHOD 12/12/2024 5:48 AM [facility] Chloride 105 96 - 110 mmol/L LAB CHEMISTRY METHOD 12/12/2024 5:48 AM [facility] CO2 21 21 - 32 mmol/L LAB CHEMISTRY METHOD 12/12/2024 5:48 AM [facility] Anion Gap 8 3 - 11 LAB CHEMISTRY METHOD 12/12/2024 5:48 AM [facility] Glucose 261(H) 70 - 100 mg/dL LAB CHEMISTRY METHOD 12/12/2024 5:48 AM [facility] BUN 84(H) 5 - 25 mg/dL LAB CHEMISTRY METHOD 12/12/2024 5:48 AM [facility] Creatinine 5.65(H) 0.70 - 1.30 mg/dL LAB CHEMISTRY METHOD 12/12/2024 5:48 AM [facility] eGFR 10(L) >=60 mL/min/1. 73m2 LAB CHEMISTRY METHOD 12/12/2024 5:48 AM [facility] Comment:Calculation based on the Chronic Kidney Disease Epidemiology Collaboration (CKD-EPI) equation refit without adjustment for race. BUN/Creatinine Ratio 14.9 LAB CHEMISTRY METHOD 12/12/2024 5:48 AM [facility] Calcium 7.9(L) 8.5 - 10.5 mg/dL LAB CHEMISTRY METHOD 12/12/2024 5:48 AM [facility] AST (SGOT) 19 10 - 42 unit/L LAB CHEMISTRY METHOD 12/12/2024 5:48 AM [facility] ALT (SGPT) 35 10 - 60 unit/L LAB CHEMISTRY METHOD 12/12/2024 5:48 AM [facility] Alkaline Phosphatase 157(H) 42 - 121 unit/L LAB CHEMISTRY METHOD 12/12/2024 5:48 AM [facility] Total Protein 5.0(L) 6.0 - 8.0 g/dL LAB CHEMISTRY METHOD 12/12/2024 5:48 AM [facility] Albumin 2.0(L) 3.2 - 5.0 g/dL LAB CHEMISTRY METHOD 12/12/2024 5:48 AM [facility] Total Bilirubin 0.3 0.0 - 1.4 mg/dL LAB CHEMISTRY METHOD 12/12/2024 5:48 AM [facility] Blood Venous blood specimen / Unknown Venipuncture / Unknown 12/12/2024 5:04 AM EDT 12/12/2024 5:20 AM EDT us Shelly SUBRAMANIAN LAB BLOOD ORDERABLES Final R esult [facility] [address] [place] [address], * Iron (12/10/2024 5:19 AM EDT) Iron 64 50 - 160 mcg/dL LAB CHEMISTRY METHOD 12/10/2024 2:35 PM EDT [facility] Blood Venous blood specimen / Unknown Venipuncture / Unknown 12/10/2024 5:19 AM EDT 12/10/2024 6:51 AM EDT Shelly SUBRAMANIAN LAB BLOOD ORDERABLES Final R esult Performing Organization Address City/[facility]/ZIP Co de Phone Number [facility] [address] [place] [address], [place] [phone] * Ferritin (12/10/2024 5:19 AM EDT) Ferritin 328 26 - 388 ng/mL LAB CHEMISTRY METHOD 12/10/2024 2:35 PM EDT [facility] Blood Venous blood specimen / Unknown Venipuncture / Unknown 12/10/2024 5:19 AM EDT 12/10/2024 6:51 AM EDT Shelly SUBRAMANIAN LAB BLOOD ORDERABLES Final R esult Performing Organization Address City/[facility]/ZIP Co de Phone Number [facility] [address] [place] [address], [place] [phone] * XR Chest 2 Views (12/09/2024 2:20 PM EDT) Anatomical Region Laterality Modality Body Radiographic Adelaide ging 12/09/2024 2:31 PM EDT Impressions 12/09/2024 2:32 PM EDT Impression: Mild bibasilar subsegmental atelectasis or scar. Raya SUBRAMANIAN ([id number]) -------- FINAL REPORT -------- Dictated By: Emily Hernandez Dictated Date: 12/09/2024 14:31 ET Assigned Physician: Emily Hernandez Reviewed and Electronically Signed By: Emily Hernandez Signed Date: 12/09/2024 14:32 ET Workstation ID: [id number] Transcribed By: Self Edit Transcribed Date: 12/09/2024 14:31 ET Narrative 12/09/2024 2:32 PM EDT History: Fever. Comparison: No comparison imaging at this institution. Findings: PA and lateral views. The cardiac silhouette remains normal in size. Atherosclerotic calcification and tortuosity of the thoracic aorta are noted. Hilar contours and pulmonary vascularity are within normal limits. Mild bandlike opacity is seen at the lung bases, consistent with subsegmental atelectasis or scar. The lungs are otherwise clear. The costophrenic angles are sharp. The regional skeleton is intact. Procedure Note Emily Hernandez MD - 12/09/2024 History: Fever. Comparison: No comparison imaging at this institution. Findings: PA and lateral views. The cardiac silhouette remains normal in size.Atherosclerotic calcification and tortuosity of the thoracic aorta arenoted. Hilar contours and pulmonary vascularity are within normallimits. Mild bandlike opacity is seen at the lung bases, consistent withsubsegmental atelectasis or scar. The lungs are otherwise clear. Thecostophrenic angles are sharp. The regional skeleton is intact. IMPRESSION: Impression: Mild bibasilar subsegmental atelectasis or scar. Telerad MORIS ([id number]) -------- FINAL REPORT -------- Dictated By: Emily Hernandez Dictated Date: 12/09/2024 14:31 ET Assigned Physician: Emily Hernandez Reviewed and Electronically Signed By: Emily eHrnandez Signed Date: 12/09/2024 14:32 ET Workstation ID: [id number] Transcribed By: Self Edit Transcribed Date: 12/09/2024 14:31 ET us Shelly SUBRAMANIAN IMG XR PROCEDURES Final Resu lt * (ABNORMAL) Urinalysis with reflex microscopic and culture (12/09/2024 1:59 PM EDT) Specific [place] Urine 1.015 1.003 - 1.030 LAB URINALYSIS - AUTOMATED METHOD 12/09/2024 2:31 PM [facility] pH, Urine 6.5 5.0 - 8.0 pH LAB URINALYSIS - AUTOMATED METHOD 12/09/2024 2:31 PM [facility] Leukocytes, Urine Negative Negative LAB URINALYSIS - AUTOMATED METHOD 12/09/2024 2:31 PM [facility] Nitrite, Urine Negative Negative LAB URINALYSIS - AUTOMATED METHOD 12/09/2024 2:31 PM [facility] Protein, Urine 300(A) <=Trace mg/dL LAB URINALYSIS - AUTOMATED METHOD 12/09/2024 2:31 PM [facility] Glucose, Urine >=1000(A) Negative mg/dL LAB URINALYSIS - AUTOMATED METHOD 12/09/2024 2:31 PM [facility] Ketones, Urine Negative Negative mg/dL LAB URINALYSIS - AUTOMATED METHOD 12/09/2024 2:31 PM [facility] Urobilinogen , Urine 1.0 0.2 - 1.0 mg/dL LAB URINALYSIS - AUTOMATED METHOD 12/09/2024 2:31 PM [facility] Bilirubin, Urine Negative Negative LAB URINALYSIS - AUTOMATED METHOD 12/09/2024 2:31 PM [facility] Blood, Urine Negative Negative LAB URINALYSIS - AUTOMATED METHOD 12/09/2024 2:31 PM [facility] RBC, Urine 5.4(H) 0 - 4 /HPF LAB URINALYSIS - AUTOMATED METHOD 12/09/2024 2:31 PM [facility] WBC, Urine 1.3 0 - 4 /HPF LAB URINALYSIS - AUTOMATED METHOD 12/09/2024 2:31 PM [facility] Squamous Epithelial, Urine 17 0 - 60 /LPF LAB URINALYSIS - AUTOMATED METHOD 12/09/2024 2:31 PM EDT [facility] Bacteria, Urine Negative Negative /HPF LAB URINALYSIS - AUTOMATED METHOD 12/09/2024 2:31 PM EDT [facility] Hyaline Casts, Urine 1.2 0 - 3 /LPF LAB URINALYSIS - AUTOMATED METHOD 12/09/2024 2:31 PM EDT [facility] Urine Urine specimen obtained by clean catch procedure / Unknown Non-blood Collection / Unknown 12/09/2024 1:59 PM EDT 12/09/2024 2:24 PM EDT Shelly SUBRAMANIAN LAB URINE ORDERABLES Final R esult Performing Organization Address City/[facility]/ZIP Co de Phone Number [facility] [address] [place] [address], [place] [phone] * Can urine culture tube (12/09/2024 1:59 PM EDT) Extra Tube Hold for add-ons. 12/09/2024 4:01 PM EDT [facility] Comment:Auto resulted. Urine Urine specimen obtained by clean catch procedure / Unknown Non-blood Collection / Unknown 12/09/2024 1:59 PM EDT 12/09/2024 2:24 PM EDT Shelly SUBRAMANIAN LAB URINE ORDERABLES Final R esult [facility] [address] [place] [address], [place] [phone] * (ABNORMAL) Phosphorus (12/09/2024 5:30 AM EDT) Phosphorus 4.7(H) 2.5 - 4.5 mg/dL LAB CHEMISTRY METHOD 12/09/2024 7:09 AM EDT [facility] Blood Venous blood specimen / Unknown Venipuncture / Unknown 12/09/2024 5:30 AM EDT 12/09/2024 6:05 AM EDT Shira Holliday NP LAB BLOOD ORDERABLES Final Result [facility] [address] [place] [address], * (ABNORMAL) CBC auto differential (12/04/2024 6:05 AM EDT) [facility] WBC 4.6(L) 4.8 - 10.8 K/mcL LAB HEMETOLOGY METHOD 12/04/2024 6:57 AM EDT [facility] RBC 2.40(L) 4.50 - 5.50 M/mcL LAB HEMETOLOGY METHOD 12/04/2024 6:57 AM EDT [facility] Hemoglobin 7.6(L) 13.5 - 17.5 g/dL LAB HEMETOLOGY METHOD 12/04/2024 6:57 AM EDT [facility] Hematocrit 23.5(L) 42.0 - 54.0 % LAB HEMETOLOGY METHOD 12/04/2024 6:57 AM EDT [facility] MCV 96.7 79.0 - 98.0 FL LAB HEMETOLOGY METHOD 12/04/2024 6:57 AM EDT [facility] MCH 31.3 27.0 - 32.0 pcg LAB HEMETOLOGY METHOD 12/04/2024 6:57 AM EDT [facility] MCHC 32.3 32.0 - 37.0 g/dL LAB HEMETOLOGY METHOD 12/04/2024 6:57 AM [facility] RDW 12.2 11.0 - 15.0 % LAB HEMETOLOGY METHOD 12/04/2024 6:57 AM EDT [facility] Platelets 180 130 - 400 K/mcL LAB HEMETOLOGY [facility]/04[facility]24 [facility] MPV 10.5 7.0 - 11.0 FL LAB HEMETOLOGY METHOD 12/04/2024 6:57 AM [facility] NRBC 0.0 <1.0 % LAB HEMETOLOGY METHOD 12/04/2024 6:57 AM [facility] NRBC Absolute 0.00 <0.10 K/[facility] LAB HEMETOLOGY METHOD 12/04/2024 6:57 AM [facility] Neutrophils Relative 51.8 % LAB HEMETOLOGY METHOD 12/04/2024 6:57 AM [facility] Lymphocytes Relative 21.4 % LAB HEMETOLOGY METHOD 12/04/2024 6:57 AM [facility] Monocytes Relative 16.8 % LAB HEMETOLOGY METHOD 12/04/2024 6:57 AM [facility] Eosinophils Relative 8.9 % LAB HEMETOLOGY METHOD 12/04/2024 6:57 AM [facility] Basophils Relative 0.4 % LAB HEMETOLOGY METHOD 12/04/2024 6:57 AM [facility] Immature Granulocytes Relative 0.7 % LAB HEMETOLOGY METHOD 12/04/2024 6:57 AM [facility] Neutrophils Absolute 2.38 1.50 - 7.00 [facility] LAB HEMETOLOGY METHOD 12/04/2024 6:57 AM [facility] Lymphocytes Absolute 0.98(L) 1.00 - 5.00 K/[facility] LAB HEMETOLOGY METHOD 12/04/2024 6:57 AM [facility] Monocytes Absolute 0.77 0.20 - 1.00 K/[facility] LAB HEMETOLOGY METHOD 12/04/2024 6:57 AM [facility] Eosinophils Absolute 0.41 0.00 - 0.50 K/mcL LAB HEMETOLOGY METHOD 12/04/2024 6:57 AM EDT [facility] Basophils Absolute 0.02 0.00 - 0.20 K/[facility] LAB HEMETOLOGY METHOD 12/04/2024 6:57 AM EDT [facility] Immature Granulocytes Absolute 0.03 0.00 - 0.03 K/[facility] LAB HEMETOLOGY METHOD 12/04/2024 6:57 AM EDT [facility] Blood Venous blood specimen / Unknown Venipuncture / Unknown 12/04/2024 6:05 AM EDT 12/04/2024 6:32 AM EDT [place] SUBRAMANIAN LAB BLOOD ORDERABLES Final Re sult Performing Organization Address [facility]/ZIP Co de Phone Number [facility] [address] [place] [address], [place] [phone] * Prothrombin time with INR (12/04/2024 6:05 AM EDT) Protime 11.7 10.6 - 13.9 sec LAB COAGULATION METHOD 12/04/2024 6:56 AM EDT [facility] INR 0.9 LAB COAGULATION METHOD 12/04/2024 6:56 AM EDT [facility] Blood Venous blood specimen / Unknown Venipuncture / Unknown 12/04/2024 6:05 AM EDT 12/04/2024 6:31 AM EDT [place] SUBRAMAN[facility] LAB BLOOD ORDERABLES Final Re sult Performing Organization Address City/[facility]/ZIP Co de Phone Number [facility] [address] [place] [address], [place] [phone] from Last 3 Months Insurance [facility] [employer] Member Subscriber Plan / Payer (Ef fective 2021-Present) Name:Luisito Sam Relation to Subscriber:Self Name:Luisito Sam Payer ID:[id number] Group ID:[id number] Type:Not on file Address: [address] [place] [phone] [facility] Advance Directives Documents on File Type Date Recorded Patient Employee Adviser Expl anation Advance Directives and Living Will 12/04/2024 9:21 AM HEALTH CARE PROXY * Full Code - Default (Latest Code Status on File) Date Activated Date Inactivated Comments 12/03/2024 6:38 PM 12/15/2024 4:47 PM This is orde r is used when code status has not been discussed with the patient, or code status is otherwise unknown/unconfirmed To update the patient's code status, place a code status order. Do not modify or discontinue any currently active code status orders. Care Teams Live Hanger Relationship Specialty Start Date End Date Rashid Steele PA [address] [place] [phone] PCP - General Internal Medicine 08/12/24
--- OUTSIDE RECORDS SUMMARY | 2024-12-31 15:05 | XMS_ITS | Clinical Summary ---
Author Organization [facility] Address [address] [place] [address] Care Team Providers Care Cray Fishing Hand Name Role Phone Anel Padgett [facility] Primary Care Provider [phone] Source Comments PLEASE NOTE, if this patient [...] injectionIndicatio ns:Diabetes mellitus type 2 in nonobese ([facility]) Inject w/meals 70-100 NO u 101- 140 2 U, 141-180 3 U, 181-220 4 U, 221-260 6 U, 261-300 8 U, 301-350 10 U,351-400 12 ,>400 callMD 10 mL 5 7 Active insulin needles 31 gauge x 1/4 Indications:Di abetes mellitus type 2 in nonobese ([facility]) DX.E11.65 insulin injection 4 times a day 100 Each 7 Active lancetsIndications :Diabetes mellitus type 2 in nonobese ([facility]) DX E11.65 . Blood sugar check 4 times a day 100 Each [address] Active [address] tabletIndications: Diabetes mellitus type 2 in nonobese ([facility]) Take 1 Tab by mouth once daily 8 Active insulin glargine (LANTUS) 100 unit/mL injectionIndicatio ns:Diabetes mellitus type 2 in nonobese ([facility]) Inject 60 Units into the skin once daily 10 mL 5 8 Active linagliptin (TRADJENTA) 5 mg tabIndications:Ava betes mellitus type 2 in nonobese ([facility]) Take 1 Tab by mouth once daily 30 Tab 3 8 Active FREESTYLE LITE STRIPS stripsIndications: Diabetes mellitus type 2 in nonobese ([facility]) USE TO TEST BLOOD SUGAR THREE TIMES [...] mcg/actuation nasal sprayIndications:N [place] congestion Place 1 [place] in both nostrils once daily for 14 [...] 01/20/2017 Overview (01/20/2017): Colonoscopy done 11/11/14 at [facility] - small hiatus hernia with no evidence of reflux esophagitis , normal colonoscopy Endoscopy also done - DX superficial gastritis Diverticulitis of large intestine 04/05/2015 Overview (04/05/2015): Seen at [facility] 03/25/2015 for abdominal pain for 3 days. Treated with Levaquin,and flagyl . CT Scan : Wall thickening with Inflammatory changes surrounding junction of descending/sigmoid colon. Pt has history of Diverticulitis S/P Partial colon Resection 2-3 years ago. History of Negative Colonoscopy early 2014 at [facility] Facet arthropathy, lumbar 02/03/2015 Overview (02/03/2015): Sees spine. X-ray 12/05/2014 L4-L5 facet arthropathy. Undergoing PT. X- Ray hip normal H/O hypogonadism 01/19/2015 Overview (01/19/2015): Sees Urologist S/P TURP 02/25/2014 Overview (07/01/2017): Done 10/21/2013. 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[facility]) 4 Diabetic eye exam ([facility]) 06/27/2013 Overview (06/27/2013): Pt has an eye [...] Colonoscopy 06/05/2024 06/05/2014 Colorectal Cancer Screening 06/05/2024 Hemoglobin A1c 11/03/2024 05/06/2024, 04/12/2017, 02/27/2017, Additional history exists [id number] ( season) 2024 01/23/2024, 01/31/2022, 04/02/2021, Additional history exists Imm-Influenza (#1) 2024 01/23/2024, [...] Procedure Name Priority Date/Time Associated Diagnosis Comments COMPREHENSIVE METABOLIC PANEL Routine 05/06/2024 1:56 PM EST Encounter to establish care Controlled type 2 diabetes mellitus without complication, with long-term current use of insulin ([facility]) Hypertension, unspecified type LIPID PANEL Routine 05/06/2024 1:56 PM EST Encounter to establish care Controlled type 2 diabetes mellitus without complication, with long-term current use of insulin ([facility]) Hypertension, unspecified type MICROALBUMIN/CREATININ E RATIO, URINE, RANDOM Routine 05/06/2024 1:56 PM EST Encounter to establish care Controlled type 2 diabetes mellitus without complication, with long-term current use of insulin ([facility]) HGBA1C W/MPG Routine 05/06/2024 1:56 PM EST Encounter to establish care Controlled type 2 diabetes mellitus without complication, with long-term current use of insulin ([facility]) HEPATITIS A,B,C PANEL Routine 02/27/2017 11:10 AM EST Multiple joint pain from Last 3 Months or Most Recently Relevant to Health Maintenance Results * (ABNORMAL) HGBA1C W/MPG (05/06/2024 1:56 PM EST) HEMOGLOBIN A1C 7.4(H) <5.7 % of total Hgb [facility] Comment: For someone without known diabetes, a [...] children. MEAN PLASMA GLUCOSE 186 mg/dL (calc) [facility] Blood Blood / Unknown 05/06/2024 1 :56 PM EST 05/06/2024 1:56 PM EST Narrative [employer] - 05/08/2024 5:49 PM EST FASTING:NO us Mary Osborne PA-C LAB - BLOOD DRAW Edited Res ult - Final [facility] [address] [place] [address], [facility] [address] [place] [phone] * (ABNORMAL) MICROALBUMIN/CREATININE RATIO, URINE, RANDOM (05/06/2024 1:56 PM EST) CREATININE, RANDOM URINE 37 20 - 320 mg/dL [facility] MICROALBUMIN 147.9 mg/dL [facility] Comment: Verified by repeat analysis. Reference Range Not established MICROALBUMIN/CREA TININE RATIO, RANDOM URINE 3,997(H) <30 mg/g creat [facility] Comment: The ADA defines abnormalities in albumin [...] PM EST 05/06/2024 1:56 PM EST Narrative [employer] [facility] - 05/08/2024 5:49 PM EST FASTING:NO Mary Osborne PA-C LAB URINE AMBULATORY Final Result Performing Organization Address [facility]/ZIP Co de Phone Number [employer] [facility] [address] [address], [employer] [address] [address] * (ABNORMAL) LIPID PANEL (05/06/2024 1:56 PM EST) CHOLESTEROL, TOTAL 122 <200 mg/dL [employer] [facility] HDL CHOLESTEROL 41 > OR = 40 mg/dL [employer] [facility] TRIGLYCERIDES 174(H) <150 mg/dL [employer] [facility] LDL-CHOLESTEROL 56 99 mg/dL (calc) [employer] [facility] Comment: Reference range: <100 Desirable range <100 mg/dL for primary prevention; <70 mg/dL for patients with CHD or diabetic patients with > or = 2 CHD risk factors. LDL-C is now calculated using the Hola-Jorge calculation, which is a validated novel method providing better accuracy than the Friedewald equation in the estimation of LDL-C. Hola SS et al. KAUSHIK. 2013;310(19): 3545-1677 (http://education.Yebhi/faq/BXZ985) CHOL/HDLC RATIO 3.0 <5.0 (calc) [employer] [facility] NON-HDL CHOLESTEROL 81 <130 mg/dL (calc) [facility] Comment: For patients with diabetes plus 1 major ASCVD risk factor, treating to a non-HDL-C goal of <100 mg/dL (LDL-C of <70 mg/dL) is considered a therapeutic option. Blood Blood / Unknown 05/06/2024 1 :56 PM EST 05/06/2024 1:56 PM EST Narrative [employer] [facility] - 05/08/2024 5:49 PM EST FASTING:NO Mary Osborne PA-C LAB - BLOOD DRAW Final Resu lt Performing Organization Address [facility]/ZIP Co de Phone Number [employer] [facility] [address] [address], [employer] [facility] [address] [place] [address] * (ABNORMAL) COMPREHENSIVE METABOLIC PANEL (05/06/2024 1:56 PM EST) GLUCOSE 329(H) 65 - 139 mg/dL [employer] [facility] Comment: Non-fasting reference interval UREA NITROGEN (BUN) 39(H) 7 - 25 mg/dL [employer] [facility] CREATININE (blood) 2.99(H) 0.70 - 1.35 mg/dL [employer] [facility] EGFR 22(L) > OR = 60 mL/min/1. 73m2 [employer] [facility] BUN/CREATININE RATIO 13 6 - 22 (calc) [employer] [facility] SODIUM 133(L) 135 - 146 mmol/L [employer] [facility] POTASSIUM 4.4 3.5 - 5.3 mmol/L [employer] [facility] CHLORIDE 101 98 - 110 mmol/L [employer] [facility] CARBON DIOXIDE 22 20 - 32 mmol/L [employer] [facility] CALCIUM 8.4(L) 8.6 - 10.3 mg/dL [employer] [facility] PROTEIN, TOTAL 5.8(L) 6.1 - 8.1 g/dL [facility] [facility] ALBUMIN 3.2(L) 3.6 - 5.1 g/dL [facility] [facility] GLOBULIN 2.6 1.9 - 3.7 g/dL (calc) [facility] [facility] ALBUMIN/GLOBULI N RATIO 1.2 1.0 - 2.5 (calc) [facility] [facility] BILIRUBIN, TOTAL 0.3 0.2 - 1.2 mg/dL [employer] [facility] ALKALINE PHOSPHATASE 181(H) 35 - 144 U/L [employer] [facility] AST 25 10 - 35 U/L [employer] [facility] ALT 26 9 - 46 U/L [employer] [facility] Blood Blood / Unknown 05/06/2024 1 :56 PM EST 05/06/2024 1:56 PM EST Narrative [employer] [facility] - 05/08/2024 5:49 PM EST FASTING:NO Mary Osborne PA-C LAB - BLOOD DRAW Edited Res ult - Final [employer] [employer] [facility] [address] [address], [employer] [address] [address] * HEPATITIS A,B,C PANEL (02/27/2017 11:10 AM EST) HEPATITIS B SURFACE ANTIBODY NEGATIVE NEGATIVE [facility] HEPATITIS B SURFACE ANTIGEN NEGATIVE NEGATIVE [facility] Comment: Over the counter supplements containing high doses of biotin may interfere with this assay. If interference is suspected, patients shoud be retested after refraining from biotin supplements for 72 hours. HEPATITIS C VIRUS DIAGNOSTIC NEGATIVE NEGATIVE [facility] HEPATITIS B CORE ANTIBODY NEGATIVE NEGATIVE [facility] HEPATITIS A ANTIBODY TOTAL NEGATIVE NEGATIVE [facility] Comment: Over the counter supplements containing high doses of biotin may interfere with this assay. If interference is suspected, patients shoud be retested after refraining from biotin supplements for 72 hours. Blood specimen (specimen) Blood / Unknown 02/27/2017 11:10 AM EST 02/27/2017 11:33 AM EST Narrative [facility] - 02/27/2017 4:19 PM EST [employer] [address] [place] [address] PT ID [id number] ORD# [id number] Gregor GRIFFITH LAB - BLOOD DRAW Edited Result - Final [address] [address], from Last 3 Months or Most Recently Relevant to Health Maintenance Insurance [facility] [employer] [place] [address] [place] [address] PARTNERSHIP [facility] Care Teams Cray Fishing Hand Relationship Specialty Start Date End Date Anel Padgett FNP [facility] [place] [address] PCP - General Internal Medicine 09/05/21
--- OUTSIDE RECORDS SUMMARY | 2024-12-31 15:05 | XMS_ITS | Patient Health Record ---
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 Name Role Phone Gregor Ruiz Primary Care Provider Unavailabl e Clinical, Operations Unavailable Unavailable Kaiden Bautista Unavailable [phone] BryantArielle Unavailable [phone] Allergies Allergen (clinical drug ingredient) Drug/Non Drug Allergy documented on EMR Reaction Allergy Type Onset Date Status lisinopril Lisinopril Unknown Drug Allergy Activ e Reason For Referral No Information Medications Medication SIG (Take, Route, Frequency, Duration) Notes Start Date End Date Status hydrALAZINE HCl 100 MG 1 tablet with food Orally Twice a day Active Pregabalin 100 MG 1 capsule Orally Once a day Member reports not using anymore Not-Taking Insulin Glargine 100 UNIT/ML 62 units Subcutaneous At bedtime Active Tresiba FlexTouch 200 UNIT/ML Sliding scale Subcutaneous Once a day Member reports not using anymore, switched to different Insulin Not-Taking Insulin Lispro 200 UNIT/ML per sliding scale [...] the evening Ophthalmic Once a day Active Carvedilol 25 MG 1 tablet with food Orally Twice a day 5 Active metFORMIN HCl 500 MG 1 tablet with a meal Orally Once a day states was d/c Not-Taking cloNIDine HCl 0.1 MG 1 tablet Orally twice a day 5 Active Naproxen 500 MG 1 tablet with food or milk as needed Orally every 12 hrs Member reports not using anymore Not-Taking Diclofenac Sodium 1 % as directed Externally Active Omeprazole 20 MG 1 capsule 30 minutes before morning meal Orally Once a day Not-Taking Farxiga 5 MG 1 tablet Orally Once a day 5 Active predniSONE 10 MG take 4 tabs daily for 3 day, then 3 tabs for 3 days, then 2 tabs for 3 days, then 1 tab for 3 days. Orally Once a day Not-Taking Farxiga 5 MG 1 tablet Orally Once a day Not-Taking hydrALAZINE HCl 50 MG 1 tablet with food Orally 3 times per day Not-Taking Bumetanide 1 MG 1 tablet Orally Once a day Active hydroCHLOROthiazide 12.5 MG 1 capsule in the morning Orally Once a day Taking Valsartan Not-Taking Carboxymethylcellulose Sod PF 0.5 % as directed Ophthalmic Four times a day Active Insulin Aspart 100 UNIT/ML 22 units befo re breakfast, lunch and dinner Subcutaneous Three times a day Not-Taking Atorvastatin Calcium 80 MG 0.5 tablet [...] tablet Orally Once a day 5 Active Trulicity 1.5 MG/0.5ML as directed Subcutaneous Member reports not using anymore, Switch to diffiennt Insulin Not-Taking Tamsulosin HCl 0.4 MG 1 capsule Orally Once a day Active Valsartan 320 MG 1 tablet Orally Once a day Active Vitamin D 50 MCG (1999 UT) 1 tablet Oral ly Once a day Active amLODIPine Besylate 5 MG 1 tablet Orally Once a day states was d/c Not-Taking Lidocaine 5 % 1 patch remove after 12 hours Externally Once a day Active Magnesium Oxide 420 MG 1 tablet as needed Orally Once a day Active Multivitamin - 1 tablet Orally Once a day One a day(brand name) Active Immunizations Vaccine Route Administration Date Status Comme nts Flu Vac (Fluzone /Alfuria) QIV PFS Unknown 01/17/2021 A dministered Moderna COVID-19 Vaccine IM Unknown 04/02/2021 Administ ered [facility] COVID-19 Vaccine IM Unknown 06/29/2020 Administered PfizerActionBaseBioNTech COVID-19 Vaccine IM Unknown 07/20/2020 Administered Pneumococcal Vac (Pneumovax 23) SDV / PFS, IM Unknown 07/22/2021 Administered Problems Problem Type SNOMED Code ICD Code Onset Dates Problem Status W/U Status Risk Notes Problem Nicotine dependence (86026205) Personal history of nicotine dependence (Z87.891) Active confirmed Problem Tinea unguium (928332061) Tinea unguium (B35.1) Active confirmed Problem Overweight (184193335) Overweight (E66.3) Active confirmed Problem Tachycardia (5591468) Tachycardia, unspecified (R00.0) Active confirmed Problem Abdominal pain (finding) (69867360) Abdominal pain, unspecified site (R10.9) Active confirmed Problem Acquired trigger finger (7460610) Trigger thumb, left thumb (M65.312) Active confirmed Problem Pain in left foot (690808125478921) Pain in left foot (M79.672) Active confirmed Problem Bursitis of left shoulder (969058737862643) Bursitis of left shoulder (M75.52) Active confirmed Problem Lumbosacral spondylosis without myelopathy (77469212) Spondylosis without myelopathy or radiculopathy, lumbar region (M47.816) Active confirmed Problem Backache (661733538) Dorsalgia, unspecified (M54.9) Active confirmed Problem Pain in right foot (604451365398571) Pain in right foot (M79.671) Active confirmed Problem Folliculitis (93240401) Folliculitis (L73.9) Active confirmed Problem Arthropathy of lumbar facet joint (disorder) (786628543) Facet arthropathy, lumbar (M47.816) Active confirmed Problem Tobacco user (909236231) Cigarette nicotine dependence without complication (F17.210) Active confirmed Problem Recurrent major depression in full remission (80049891) Major depressive disorder, recurrent, in full remission (F33.42) Active confirmed Problem Cholesterolosis of gallbladder (40105429) 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) Active confirmed Problem Localized, primary osteoarthritis of the pelvic region and thigh (651461896) Unilateral primary osteoarthritis, right hip (M16.11) Active confirmed Problem Degeneration of lumbar intervertebral disc (28714564) Other intervertebral disc degeneration, lumbar region (M51.36) Active confirmed Problem Nocturia (546624023) Nocturia (R35.1) Active confirmed Problem Gastroesophageal reflux disease without esophagitis (758891133) Gastroesophageal reflux disease without esophagitis (K21.9) Active confirmed Problem Long-term current use of insulin (304978393) senior care (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 (Z79.4) Active confirmed Problem Chronic kidney disease due to hypertension (371160495727880) Hypertensive chronic kidney disease with stage 1 through stage 4 chronic kidney disease, or unspecified chronic kidney disease (I12.9) Active confirmed Problem Erectile dysfunction (disorder) (454516213) Erectile dysfunction, unspecified erectile dysfunction type (N52.9) Active confirmed Problem History of transurethral resection of prostate (150368012) S/P TURP (Z90.79) Active confirmed Problem Primary hypertension (00460596) Primary hypertension (I10) Active confirmed Problem Hyperlipidaemia (18967628) Hyperlipidemia, unspecified hyperlipidemia type (E78.5) Active confirmed Problem Shoulder joint pain (654905693) Left shoulder pain, unspecified chronicity (M25.512) Active confirmed Problem Type II diabetes mellitus without complication (494914074) Type 2 diabetes mellitus without complication, without long-term current use of insulin (E11.9) Active confirmed Problem Diabetic peripheral neuropathy associated with type 2 diabetes mellitus (4796182697206) Type 2 diabetes mellitus with diabetic neuropathy, without long-term current use of insulin (E11.40) Active confirmed Problem Chronic idiopathic constipation (11017209) Chronic idiopathic constipation (K59.04) Active confirmed Problem Secondary catara ct of both eyes, unspecified secondary cataract type (H26.40) Active confirmed Problem Lower urinary tract symptoms due to benign prostatic hypertrophy (44439671072231) Benign prostatic hyperplasia with lower urinary tract symptoms, symptom details unspecified (N40.1) Active confirmed Problem Glaucoma (42131253) Glaucoma, unspecified glaucoma type, unspecified laterality (H40.9) Active confirmed Problem Diverticulitis of colon (392140200) Diverticulitis of large intestine, unspecified bleeding status, unspecified complication status (K57.32) Active confirmed Problem Cirrhosis - non-alcoholic (415958677) Hepatic cirrhosis, unspecified hepatic cirrhosis type, unspecified whether ascites present (K74.60) Active confirmed Problem Low back pain (finding) (568608019) Low back pain, unspecified back pain laterality, unspecified chronicity, unspecified whether sciatica present (M54.50) Active confirmed Problem History of endocrine disorder (503987070) H/O hypogonadism (Z86.39) Active confirmed Vital Signs Height-cm 181.61 cm 08/25/2024 Height 71.5 in 08/25/2024 Encounters Encounter Location Date Provider Diagnosis [address] [address] 03/10/2024 Operations Clinical Folliculitis L73.9 ; Primary [...] primary osteoarthritis, right hip M16.11 ; 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 ; Low back pain, unspecified back pain laterality, unspecified chronicity, unspecified whether sciatica present M54.50 ; Hypertensive chronic kidney disease with stage 1 through stage 4 chronic kidney disease, or unspecified chronic kidney disease I12.9 and Tachycardia, unspecified R00.0 [facility] [address] [place] [address] 08/25/2024 Arielle Hurtado Folliculitis L73.9 ; Primary [...] Unilateral primary osteoarthritis, right hip M16.11 ; senior care (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 Z79.4 ; Low back pain, unspecified back pain laterality, unspecified chronicity, unspecified whether sciatica present M54.50 ; Hypertensive chronic kidney disease with stage 1 through stage 4 chronic kidney disease, or unspecified chronic kidney disease I12.9 and Tachycardia, unspecified R00.0 [facility] [address] [address] 09/01/2024 Kaiden Bautista [facility] [address] [place] [address] 12/19/2024 Arielle Hurtado [facility] [address] [place] [address] 12/31/2024 Arielle Hurtado Assessments Encounter Date Diagnosis (ICD Code) Assessment [...] - F33.42) Problem list updated using [employer] 08/25/2024 Unilateral primary osteoarthritis, right hip (ICD-10 - M16.11) 03/10/2024 Unilateral primary osteoarthritis, right hip (ICD-10 - M16.11) Problem list updated using [employer] 08/25/2024 senior care (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 (ICD-10 - Z79.4) 03/10/2024 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
== END 2024-12-31 12:30 | disposition home or self-care (01) ==
PROVIDERS: PCP Physician Assistant Medical; Visit Provider Internal Medicine Hypertension Specialist
DX: N18.9 Chronic kidney disease, unspecified (principal); N40.1 Benign prostatic hyperplasia with lower urinary tract symptoms; N13.8 Other obstructive and reflux uropathy; I12.9 Hypertensive chronic kidney disease with stage 1 through stage 4 chronic kidney disease, or unspecified chronic kidney disease; E11.42 Type 2 diabetes mellitus with diabetic polyneuropathy; K74.60 Unspecified cirrhosis of liver; N18.5 Chronic kidney disease, stage 5; D12.6 Benign neoplasm of colon, unspecified; K59.04 Chronic idiopathic constipation; D63.1 Anemia in chronic kidney disease
CPT/HCPCS: 99214

== ENCOUNTER → 2024-12-31 11:53 | Outpatient (BNVA) | payer OTHER, SELFPAY | PROVIDERS: PCP Physician Assistant Medical; Visit Provider Internal Medicine Hypertension Specialist | DX: E11.22 Type 2 diabetes mellitus with diabetic chronic kidney disease (principal); I12.9 Hypertensive chronic kidney disease with stage 1 through stage 4 chronic kidney disease, or unspecified chronic kidney disease; N18.5 Chronic kidney disease, stage 5; D63.1 Anemia in chronic kidney disease; E11.42 Type 2 diabetes mellitus with diabetic polyneuropathy; N40.1 Benign prostatic hyperplasia with lower urinary tract symptoms; N13.8 Other obstructive and reflux uropathy; D12.6 Benign neoplasm of colon, unspecified; K59.04 Chronic idiopathic constipation; K74.60 Unspecified cirrhosis of liver | CPT/HCPCS: 96372; 99212; Q5106 ==

== ENCOUNTER 2025-01-13 12:36 | Outpatient (REF) | payer OTHER, SELFPAY ==
--- OUTSIDE RECORDS SUMMARY | 2025-01-13 15:32 | XMS_ITS | Clinical Summary ---
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 Name Role Phone Anel Padgett [facility] Primary Care Provider [phone] Source Comments PLEASE NOTE, if this patient [...] ns:Diabetes mellitus type 2 in nonobese ([facility]) Inject w/meals 70-100 NO u 101- 140 2 U, 141-180 3 U, 181-220 4 U, 221-260 6 U, 261-300 8 U, 301-350 10 U,351-400 12 ,>400 callMD 10 mL 5 7 Active insulin needles 31 gauge x 1/4 Indications:Di abetes mellitus type 2 in nonobese ([facility]) DX.E11.65 insulin injection 4 times a day 100 Each 7 Active lancetsIndications :Diabetes mellitus type 2 in nonobese ([facility]) DX E11.65 . Blood sugar check 4 times a day 100 Each [address] Active [address] tabletIndications: Diabetes mellitus type 2 in nonobese ([facility]) Take 1 Tab by mouth once daily 8 Active insulin glargine (LANTUS) 100 unit/mL injectionIndicatio ns:Diabetes mellitus type 2 in nonobese ([facility]) Inject 60 Units into the skin once daily 10 mL 5 8 Active linagliptin (TRADJENTA) 5 mg tabIndications:Ava betes mellitus type 2 in nonobese ([facility]) Take 1 Tab by mouth once daily 30 Tab 3 8 Active FREESTYLE LITE STRIPS stripsIndications: Diabetes mellitus type 2 in nonobese ([facility]) USE TO TEST BLOOD SUGAR THREE TIMES [...] mcg/actuation nasal sprayIndications:N [place] congestion Place 1 [place] in both nostrils once daily for 14 [...] 01/20/2017 Overview (01/20/2017): Colonoscopy done 11/11/14 at [facility] - small hiatus hernia with no evidence of reflux esophagitis , normal colonoscopy Endoscopy also done - DX superficial gastritis Diverticulitis of large intestine 04/05/2015 Overview (04/05/2015): Seen at [facility] 03/25/2015 for abdominal pain for 3 days. Treated with Levaquin,and flagyl . CT Scan : Wall thickening with Inflammatory changes surrounding junction of descending/sigmoid colon. Pt has history of Diverticulitis S/P Partial colon Resection 2-3 years ago. History of Negative Colonoscopy early 2014 at [facility] Facet arthropathy, lumbar 02/03/2015 Overview (02/03/2015): Sees spine. X-ray 12/05/2014 L4-L5 facet arthropathy. Undergoing PT. X- Ray hip normal H/O hypogonadism 01/19/2015 Overview (01/19/2015): Sees Urologist S/P TURP 02/25/2014 Overview (07/01/2017): Done 10/21/2013. Sees Urologist Hood Elizondo 05/25/17 - No show to Urology F/U DM type 2 (diabetes mellitus, type 2) ([facility]) 07/28/2013 Overview (09/10/2013): Pt sees Endo at [facility] Hyperlipidemia 07/28/2013 GERD (gastroesophageal reflux disease) 4 DM neuropathy, painful ([facility]) 4 Diabetic eye exam ([facility]) 06/27/2013 Overview (06/27/2013): Pt has an eye [...] Care Team (Late st Contact Info) Description 02/11/2025 1:00 PM EDT Office Visit [facility] [address] [place] [address] Anel Padgett FNP [address] [place] [address] Health Maintenance Due Date Last Done Comments [...] Cancer Screening 06/05/2024 Hemoglobin A1c 11/03/2024 05/06/2024, 07/22, 02/27/2017, Additional history exists [id number] ( season) 2024 01/23/2024, 01/31/2022, 04/02/2021, Additional [...] complication, with long-term current use of insulin ([facility]) Hypertension, unspecified type LIPID PANEL Routine 05/06/2024 1:56 PM EST Encounter to establish care Controlled type 2 diabetes mellitus without complication, with long-term current use of insulin ([facility]) Hypertension, unspecified type MICROALBUMIN/CREATININ E RATIO, URINE, RANDOM Routine 05/06/2024 1:56 PM EST Encounter to establish care Controlled type 2 diabetes mellitus without complication, with long-term current use of insulin ([facility]) HGBA1C W/MPG Routine 05/06/2024 1:56 PM EST Encounter to establish care Controlled type 2 diabetes mellitus without complication, with long-term current use of insulin ([facility]) HEPATITIS A,B,C PANEL Routine 02/27/2017 11:10 AM EST Multiple joint pain from Last 3 Months or Most Recently Relevant to Health Maintenance Results * (ABNORMAL) HGBA1C W/MPG (05/06/2024 1:56 PM EST) HEMOGLOBIN A1C 7.4(H) <5.7 % of total Hgb [facility] Comment: For someone without known diabetes, a [...] children. MEAN PLASMA GLUCOSE 186 mg/dL (calc) [facility] Blood Blood / Unknown 05/06/2024 1 :56 PM EST 05/06/2024 1:56 PM EST Narrative [employer] - 05/08/2024 5:49 PM EST FASTING:NO Mary Osborne PA-C LAB - BLOOD DRAW Edited Res ult - Final [facility] [facility] [employer] [address] [address], [address] [place] [address] * (ABNORMAL) MICROALBUMIN/CREATININE RATIO, URINE, RANDOM (05/06/2024 1:56 PM EST) CREATININE, RANDOM URINE 37 20 - 320 mg/dL [facility] MICROALBUMIN 147.9 mg/dL [facility] Comment: Verified by repeat analysis. Reference Range Not established MICROALBUMIN/CREA TININE RATIO, RANDOM URINE 3,997(H) <30 mg/g creat [facility] Comment: The ADA defines abnormalities in albumin [...] PM EST 05/06/2024 1:56 PM EST Narrative [employer] - 05/08/2024 5:49 PM EST FASTING:NO Mary Osborne PA-C LAB URINE AMBULATORY Final Result [employer] [address] [place] [address], [facility] [address] [address] * (ABNORMAL) LIPID PANEL (05/06/2024 1:56 PM EST) CHOLESTEROL, TOTAL 122 <200 mg/dL [facility] HDL CHOLESTEROL 41 > OR = 40 mg/dL [facility] TRIGLYCERIDES 174(H) <150 mg/dL [facility] LDL-CHOLESTEROL 56 99 mg/dL (calc) [facility] Comment: Reference range: <100 Desirable range <100 mg/dL for primary prevention; <70 mg/dL for patients with CHD or diabetic patients with > or = 2 CHD risk factors. LDL-C is now calculated using the Hola-Jorge calculation, which is a validated novel method providing better accuracy than the Friedewald equation in the estimation of LDL-C. Hola PHAN et al. KAUSHIK. 2013;310(19): 0663-9663 (http://education.Music Messenger (MM)/faq/USR201) CHOL/HDLC RATIO 3.0 <5.0 (calc) [facility] NON-HDL CHOLESTEROL 81 <130 mg/dL (calc) [facility] Comment: For patients with diabetes plus 1 major ASCVD risk factor, treating to a non-HDL-C goal of <100 mg/dL (LDL-C of <70 mg/dL) is considered a therapeutic option. Blood Blood / Unknown 05/06/2024 1 :56 PM EST 05/06/2024 1:56 PM EST Narrative [facility] - 05/08/2024 5:49 PM EST FASTING:NO us Mary Osborne PA-C LAB - BLOOD DRAW Final Resu lt [facility] [address] [address], [facility] [address] [place] [address] * (ABNORMAL) COMPREHENSIVE METABOLIC PANEL (05/06/2024 1:56 PM EST) GLUCOSE 329(H) 65 - 139 mg/dL [facility] Comment: Non-fasting reference interval UREA NITROGEN (BUN) 39(H) 7 - 25 mg/dL [facility] CREATININE (blood) 2.99(H) 0.70 - 1.35 mg/dL [facility] EGFR 22(L) > OR = 60 mL/min/1. 73m2 [facility] BUN/CREATININE RATIO 13 6 - 22 (calc) [facility] SODIUM 133(L) 135 - 146 mmol/L [facility] POTASSIUM 4.4 3.5 - 5.3 mmol/L [facility] CHLORIDE 101 98 - 110 mmol/L [facility] CARBON DIOXIDE 22 20 - 32 mmol/L [facility] CALCIUM 8.4(L) 8.6 - 10.3 mg/dL [facility] PROTEIN, TOTAL 5.8(L) 6.1 - 8.1 g/dL [facility] ALBUMIN 3.2(L) 3.6 - 5.1 g/dL [facility] GLOBULIN 2.6 1.9 - 3.7 g/dL (calc) [facility] ALBUMIN/GLOBULI N RATIO 1.2 1.0 - 2.5 (calc) [facility] BILIRUBIN, TOTAL 0.3 0.2 - 1.2 mg/dL [facility] ALKALINE PHOSPHATASE 181(H) 35 - 144 U/L [facility] AST 25 10 - 35 U/L [facility] ALT 26 9 - 46 U/L [facility] Blood Blood / Unknown 05/06/2024 1 :56 PM EST 05/06/2024 1:56 PM EST Narrative [facility] - 05/08/2024 5:49 PM EST FASTING:NO Mary Osborne PA-C LAB - BLOOD DRAW Edited Res ult - Final [facility] [address] [address], [facility] [address] [place] [address] * HEPATITIS A,B,C PANEL (02/27/2017 11:10 AM EST) HEPATITIS B SURFACE ANTIBODY NEGATIVE NEGATIVE [facility] HEPATITIS B SURFACE ANTIGEN NEGATIVE NEGATIVE [facility] Comment: Over the counter supplements containing high doses of biotin may interfere with this assay. If interference is suspected, patients shoud be retested after refraining from biotin supplements for 72 hours. HEPATITIS C VIRUS DIAGNOSTIC NEGATIVE NEGATIVE [facility] HEPATITIS B CORE ANTIBODY NEGATIVE NEGATIVE [facility] HEPATITIS A ANTIBODY TOTAL NEGATIVE NEGATIVE [facility] Comment: Over the counter supplements containing high doses of biotin may interfere with this assay. If interference is suspected, patients shoud be retested after refraining from biotin supplements for 72 hours. Blood specimen (specimen) Blood / Unknown 02/27/2017 11:10 AM EST 02/27/2017 11:[address] [facility] - 02/27/2017 4:19 PM EST [facility] [address] [place] [address] [place] [id number] ORD# [id number] Gregor GRIFFITH LAB - BLOOD DRAW Edited Result - Final Performing Organization Address City/[facility]/ZIP Co de Phone Number [facility] [address] [place] [address], from Last 3 Months or Most Recently Relevant to Health Maintenance Insurance [facility] [employer] [facility] [employer] NET DENTAL [facility] Care Teams Electrical Appliance Preparer Relationship Specialty Start Date End Date Anel Padgett FNP [address] [place] [address] PCP - General Internal Medicine 09/05/21
--- OUTSIDE RECORDS SUMMARY | 2025-01-13 15:32 | XMS_ITS | Patient Health Record ---
Author Organization [facility] [place] [address] Care Team Providers Care Collar Baster Jumpbasting Name Role Phone Gregor Ruiz Primary Care Provider Unavailabl e Clinical, Operations Unavailable Unavailable Kaiden Bautista Unavailable [phone] BryantArielle Unavailable [phone] Allergies Allergen (clinical drug ingredient) Drug/Non Drug [...] COVID-19 Vaccine IM Unknown 04/02/2021 Administ ered [employer] COVID-19 Vaccine IM Unknown 06/29/2020 Administered PfizerShopoBioNTech COVID-19 Vaccine IM Unknown 07/20/2020 Administered Pneumococcal Vac (Pneumovax 23) SDV / PFS, IM Unknown 07/22/2021 Administered Problems Problem Type SNOMED Code ICD Code Onset Dates Problem Status W/U Status Risk Notes Problem Nicotine dependence (43832137) Personal history of nicotine dependence (Z87.891) Active confirmed Problem Tinea unguium (739603872) Tinea unguium (B35.1) Active confirmed Problem Overweight (370107636) Overweight (E66.3) Active confirmed Problem Tachycardia (4371155) Tachycardia, unspecified (R00.0) Active confirmed Problem Abdominal pain (finding) (49136247) Abdominal pain, unspecified site (R10.9) Active confirmed Problem Acquired trigger finger (3848734) Trigger thumb, left thumb (M65.312) Active confirmed Problem Pain in left foot (069442242271436) Pain in left foot (M79.672) Active confirmed Problem Bursitis of left shoulder (404569649192829) Bursitis of left shoulder (M75.52) Active confirmed Problem Lumbosacral spondylosis without myelopathy (51983566) Spondylosis without myelopathy or radiculopathy, lumbar region (M47.816) Active confirmed Problem Backache (627115390) Dorsalgia, unspecified (M54.9) Active confirmed Problem Pain in right foot (776514043095281) Pain in right foot (M79.671) Active confirmed Problem Folliculitis (93912854) Folliculitis (L73.9) Active confirmed Problem Arthropathy of lumbar facet joint (disorder) (087287080) Facet arthropathy, lumbar (M47.816) Active confirmed Problem Tobacco user (066153007) Cigarette nicotine dependence without complication (F17.210) Active confirmed Problem Recurrent major depression in full remission (16239514) Major depressive disorder, recurrent, in full remission (F33.42) Active confirmed Problem Cholesterolosis of gallbladder (47352146) 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) Active confirmed Problem Localized, primary osteoarthritis of the pelvic region and thigh (599434359) Unilateral primary osteoarthritis, right hip (M16.11) Active confirmed Problem Degeneration of lumbar intervertebral disc (86687293) Other intervertebral disc degeneration, lumbar region (M51.36) Active confirmed Problem Nocturia (164119883) Nocturia (R35.1) Active confirmed Problem Gastroesophageal reflux disease without esophagitis (419085939) Gastroesophageal reflux disease without esophagitis (K21.9) Active confirmed Problem Long-term current use of insulin (646086124) long-term (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 (Z79.4) Active confirmed Problem Chronic kidney disease due to hypertension (950901532573955) Hypertensive chronic kidney disease with stage 1 through stage 4 chronic kidney disease, or unspecified chronic kidney disease (I12.9) Active confirmed Problem Erectile dysfunction (disorder) (583476990) Erectile dysfunction, unspecified erectile dysfunction type (N52.9) Active confirmed Problem History of transurethral resection of prostate (099240820) S/P TURP (Z90.79) Active confirmed Problem Primary hypertension (81942816) Primary hypertension (I10) Active confirmed Problem Hyperlipidaemia (00505965) Hyperlipidemia, unspecified hyperlipidemia type (E78.5) Active confirmed Problem Shoulder joint pain (724826180) Left shoulder pain, unspecified chronicity (M25.512) Active confirmed Problem Type II diabetes mellitus without complication (862912527) Type 2 diabetes mellitus without complication, without long-term current use of insulin (E11.9) Active confirmed Problem Diabetic peripheral neuropathy associated with type 2 diabetes mellitus (0670816053157) Type 2 diabetes mellitus with diabetic neuropathy, without long-term current use of insulin (E11.40) Active confirmed Problem Chronic idiopathic constipation (48905775) Chronic idiopathic constipation (K59.04) Active confirmed Problem Secondary catara ct of both eyes, unspecified secondary cataract type (H26.40) Active confirmed Problem Lower urinary tract symptoms due to benign prostatic hypertrophy (11883747460292) Benign prostatic hyperplasia with lower urinary tract symptoms, symptom details unspecified (N40.1) Active confirmed Problem Glaucoma (53426651) Glaucoma, unspecified glaucoma type, unspecified laterality (H40.9) Active confirmed Problem Diverticulitis of colon (324685395) Diverticulitis of large intestine, unspecified bleeding status, unspecified complication status (K57.32) Active confirmed Problem Cirrhosis - non-alcoholic (529583357) Hepatic cirrhosis, unspecified hepatic cirrhosis type, unspecified whether ascites present (K74.60) Active confirmed Problem Low back pain (finding) (447897590) Low back pain, unspecified back pain laterality, unspecified chronicity, unspecified whether sciatica present (M54.50) Active confirmed Problem History of endocrine disorder (495657248) H/O hypogonadism (Z86.39) Active confirmed Vital Signs Height-cm 181.61 cm 08/25/2024 Height 71.5 in 08/25/2024 Encounters Encounter Location Date Provider Diagnosis [address] [address] 09/01/2024 Kaiden Bautista [facility] [address] [place] [address] 12/19/2024 Arielle Hurtado [facility] [address] [place] [address] 12/31/2024 Arielle Hurtado [facility] [address] [place] [address] 03/10/2024 Operations Clinical Folliculitis L73.9 ; Primary [...] Unilateral primary osteoarthritis, right hip M16.11 ; long-term (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 Z79.4 ; Low back pain, unspecified back pain laterality, unspecified chronicity, unspecified whether sciatica present M54.50 ; Hypertensive chronic kidney disease with stage 1 through stage 4 chronic kidney disease, or unspecified chronic kidney disease I12.9 and Tachycardia, unspecified R00.0 [facility] [address] [place] [address] 08/25/2024 Arielle Hurtado Folliculitis L73.9 ; Primary [...] Unilateral primary osteoarthritis, right hip M16.11 ; long-term (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 Z79.4 ; Low [...] osteoarthritis, right hip (ICD-10 - M16.11) 03/10/2024 long-term (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 (ICD-10 - Z79.4) Problem list updated using [employer] 08/25/2024 buttermaker continuous churn (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 (ICD-10 - Z79.4) [...] Insured Coverage Start Date Coverage End Date [facility] [place] [employer] ([id number]) [address] [facility] [address] [place] [address] [id number] Modesto Rogers Self - patient is the insured 2 9
--- OUTSIDE RECORDS SUMMARY | 2025-01-13 15:32 | XMS_ITS | Clinical Summary ---
Author Organization [address] [facility] Address [address] [place] [address] Phone Care Team Providers Care Ssrs Developer Name Role Phone Rashid Steele Primary Care Provider [phone] Allergies Active Allergy Reactions Criticality Noted Date Comments Lisinopril Cough High 10/15/2023 Medications aspirin 81 mg EC tablet Take 1 tablet (81 mg total) by mouth daily. 12/04/2024 Active amoxicillin-cla vulanate (AUGMENTIN) 875-125 mg per tablet - Route: Take by mouth. - Oral 03/05/2018 Active albuterol HFA (PROAIR HFA ; PROVENTIL HFA ; VENTOLIN HFA) 90 mcg/actuation inhaler Inhale 2 puffs by mouth. 05/14/2024 Active amLODIPine (NORVASC) 5 mg tablet Take 1 tablet (5 mg total) by mouth 1 (one) time each day. Active ammonium lactate (LAC-HYDRIN) 12 % lotion Apply topically. 05/30/2024 Active atorvastatin (LIPITOR) 80 mg tablet Take 40 mg by mouth. 02/22/2024 Active benzonatate (TESSALON) 100 mg capsule Take 1 capsule (100 mg total) by mouth 3 times daily as needed. 05/14/2024 Active bumetanide (BUMEX) 0.5 mg tablet Take 1 tablet (0.5 mg total) by mouth daily. 04/09/2024 Active cetirizine (ZyrTEC) 10 mg tablet Take 1 tablet (10 mg total) by mouth daily. 05/14/2024 Active cholecalciferol (VITAMIN D-3) 50 mcg (2,000 unit) tablet Take 1 tablet (2,000 Units total) by mouth. 03/28/2024 Active Farxiga 5 mg tablet 1 tablet (5 mg total) 1 (one) time each day at the same time. 12/04/2024 Active hydrALAZINE (APRESOLINE) 50 mg tablet Take 1 tablet (50 mg total) by mouth 2 (two) times a day. 12/03/2024 Active trospium (SANCTURA) 20 mg tablet Take 1 tablet (20 mg total) by mouth 2 (two) times a day. 05/06/2024 Active tamsulosin (FLOMAX) 0.4 mg 24 hr capsule Take 1 capsule (0.4 mg total) by mouth at bedtime. at bedtime 12/03/2024 Active linaGLIPtin 5 mg tablet Take 1 tablet (5 mg total) by mouth daily. 04/05/2018 Active carvediloL (COREG) 25 mg tablet Take 1 tablet (25 mg total) by mouth 2 (two) times a day with meals. 12/04/2024 Active clopidogreL (PLAVIX) 75 mg tablet Take 1 tablet (75 mg total) by mouth 1 (one) time each day. 12/04/2024 Active cloNIDine (CATAPRES) 0.1 mg tablet Take 1 tablet (0.1 mg total) by mouth 2 (two) times a day. Active Active Problems Problem Noted Date Diagnosed Date CVA (cerebral vascular accident) (CMS/HCC V24, C CT/HCC V28) 12/03/2024 Spinal stenosis of cervical region with radiculo juan 08/15/2024 Alcoholic liver disease ([facility]/HCC V24) 08/08/2024 Overview (08/08/2024): Apr 20, 2008 [...] By: RASHID STEELE Comment: GI is at [facility]; , FAX [phone] Dec 01, 2020 Entered By: RASHID STEELE Comment: [facility]. [facility] of ABD that GI at [place] Desires Jul 22, 2021 Entered By: RASHID STEELE Comment: Next Hepatology appt., w/ Imaging at [place] in Mid - AUG 12 Oct 14, 2021 Entered By: RASHID STEELE Comment: Per Pt., Liver Disease Stable; Not Progressed Oct 14, 2021 Entered By: RASHID STEELE Comment: Chooses Private Care for This Oct 28, 2021 Entered By: RASHID STEELE Comment: LFT's WNL OCTOBER 12 May 31, 2022 Entered By: RASHID STEELE Comment: Still Sees GI/Hepatology at [facility]; Next Appt JUN 15 May 31, 2022 Entered By: RASHID STEELE Comment: US pending at [place] JUN 15 Dec 01, 2022 Entered By: [...] nonproliferative 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 edema, bilateral ([facility] V24, [facility] V28) 07/25/2024 Type 2 diabetes mellitus wit h diabetic peripheral angiopathy without gangrene ([facility] V24, [facility] V28) 07/25/2024 Tinea unguium 07/25/2024 Sensorineural hearing [...] RASHID STEELE Comment: US, Aorta DEC 13 Clifford: no AAA Jul 09, 2023 Entered By: RASHID STEELE Comment: hypertension Essential (primary) hypertension 07/25/2024 Postoperative infection 05/19/2024 Trigger finger of right thumb 05/19/2024 Encounters Date Type Department Care Team Description 12/08/2024 Plan of Care Documentation [facility] [address] [place] [phone] 12/03/2024 5:42 PM EDT - 12/13/2024 11:45 AM EDT Hospital Encounter [facility] [address] [place] [phone] Bre Garcia DO CVA (cerebral vascular accident) ([facility] V24, [facility] V28) [I63.9] (Primary Dx) Discharge Disposition: Short [...] Medical History Medical History Date Comments Diabetes ([facility] V24, [facility] V28) Arthritis High blood pressure [...] kg (179 lb 3.2 oz) 12/06/2024 1:00 P M EDT Height 185 cm (6' 0.84 ) [...] resultswithin the time period is included. Pathologist [facility] Adenovirus Detection by PCR Not Detected Not Detected LAB MICROBIOLOGY METHOD 12/13/2024 12:22 PM EDT [facility] Influenza A PCR Not Detected Not Detected LAB MICROBIOLOGY METHOD 12/13/2024 12:22 PM EDT [facility] Influenza B PCR Not Detected Not Detected LAB MICROBIOLOGY METHOD 12/13/2024 12:22 PM EDT [facility] Coronavirus 229E Not Detected Not Detected LAB MICROBIOLOGY METHOD 12/13/2024 12:22 PM EDT [facility] Coronavirus HKU1 Not Detected Not Detected LAB MICROBIOLOGY METHOD 12/13/2024 12:22 PM EDT [facility] Coronavirus OC43 Not Detected Not Detected LAB MICROBIOLOGY METHOD 12/13/2024 12:22 PM EDT [facility] Coronavirus NL63 Not Detected Not Detected LAB MICROBIOLOGY METHOD 12/13/2024 12:22 PM EDT [facility] Parainfluenza Virus 1 Not Detected Not Detected LAB MICROBIOLOGY METHOD 12/13/2024 12:22 PM EDT [facility] Parainfluenza Virus 2 Not Detected Not Detected LAB MICROBIOLOGY METHOD 12/13/2024 12:22 PM EDT [facility] Parainfluenza Virus 3 Not Detected Not Detected LAB MICROBIOLOGY METHOD 12/13/2024 12:22 PM EDT [facility] Parainfluenza Virus 4 Not Detected Not Detected LAB MICROBIOLOGY METHOD 12/13/2024 12:22 PM EDT [facility] RSV PCR Not Detected Not Detected LAB MICROBIOLOGY METHOD 12/13/2024 12:22 PM EDT [facility] Human Metapneumovirus A and B Not Detected Not Detected LAB MICROBIOLOGY METHOD 12/13/2024 12:22 PM EDT [facility] Rhinovirus/Entero virus Not Detected Not Detected LAB MICROBIOLOGY METHOD 12/13/2024 12:22 PM EDT [facility] Bordetella pertussis Not Detected Not Detected LAB MICROBIOLOGY METHOD 12/13/2024 12:22 PM EDT [facility] Bordetella parapertussis Not Detected Not Detected LAB MICROBIOLOGY METHOD 12/13/2024 12:22 PM EDT [facility] Mycoplasma pneumo by PCR Not Detected Not Detected LAB MICROBIOLOGY METHOD 12/13/2024 12:22 PM EDT [facility] Chlamydia pneumoniae Not Detected Not Detected LAB MICROBIOLOGY METHOD 12/13/2024 12:22 PM EDT [facility] SARS COV-2 Not Detected Not Detected LAB MICROBIOLOGY METHOD 12/13/2024 12:22 PM EDT [facility] Swab Both anterior nares / Unknown Non-blood Collection / Unknown 12/13/2024 10:28 AM EDT 12/13/2024 11:25 AM EDT Narrative [facility] - 12/13/2024 12:22 PM EDT Testing was performed using the codesy Respiratory Pathogen PCR Assay. All results must [...] MICROBIOLOGY - GENERA L ORDERABLES Final Result [facility] [address] [place] [address], * (ABNORMAL) Complete blood count (12/13/2024 10:28 AM EDT) Only the most recent of4 resultswithin the time period is included. WBC 15.0(H) 4.8 - 10.8 K/mcL LAB HEMETOLOGY METHOD 12/13/2024 11:31 AM EDT [facility] RBC 2.60(L) 4.50 - 5.50 M/mcL LAB HEMETOLOGY METHOD 12/13/2024 11:31 AM EDT [facility] Hemoglobin 8.2(L) 13.5 - 17.5 g/dL LAB HEMETOLOGY METHOD 12/13/2024 11:31 AM [facility] Hematocrit 25.0(L) 42.0 - 54.0 % LAB HEMETOLOGY METHOD 12/13/2024 11:31 AM EDT [facility] MCV 96.5 79.0 - 98.0 FL LAB HEMETOLOGY METHOD 12/13/2024 11:31 AM EDT [facility] MCH 31.7 27.0 - 32.0 pcg LAB HEMETOLOGY METHOD 12/13/2024 11:31 AM EDT [facility] MCHC 32.8 32.0 - 37.0 g/dL LAB HEMETOLOGY METHOD 12/13/2024 11:31 AM EDT [facility] RDW 11.7 11.0 - 15.0 % LAB HEMETOLOGY METHOD 12/13/2024 11:31 AM EDT [facility] Platelets 311 130 - 400 K/mcL LAB HEMETOLOGY METHOD 12/[facility] MPV 10.7 7.0 - 11.0 FL LAB HEMETOLOGY METHOD 12/13/2024 11:31 AM EDT [facility] NRBC 0.0 <1.0 % LAB HEMETOLOGY METHOD 12/13/2024 11:31 AM EDT [facility] NRBC Absolute 0.00 <0.10 K/mcL LAB HEMETOLOGY METHOD 12/13/2024 11:31 AM EDT [facility] Blood Venous blood specimen / Unknown Venipuncture / Unknown 12/13/2024 10:28 AM EDT 12/13/2024 11:25 AM EDT Shira Holliday NP LAB BLOOD ORDERABLES Final Result [facility] [address] [place] [address], [place] [phone] * Type and screen (12/13/2024 10:28 AM EDT) ABO Group O 12/13/2024 1:07 PM EDT [facility] Rh Type Positive 12/13/2024 1:07 PM EDT [facility] Antibody Screen Negative 12/13/2024 1:07 PM EDT [facility] Blood Venous blood specimen / Unknown Venipuncture / Unknown 12/13/2024 10:28 AM EDT 12/13/2024 11:25 AM EDT Shira Holliday NP LAB BLOOD BANK TEST ORDERABLES Final Result [facility] [address] [place] [address], [place] [phone] * (ABNORMAL) Magnesium (12/13/2024 10:28 AM EDT) Only the most recent of2 resultswithin the time period is included. Magnesium 1.7(L) 1.9 - 2.6 mg/dL LAB CHEMISTRY METHOD 12/13/2024 11:46 AM [facility] Blood Venous blood specimen / Unknown Venipuncture / Unknown 12/13/2024 10:28 AM EDT 12/13/2024 11:25 AM EDT Shira Holliday NP LAB BLOOD ORDERABLES Final Result [facility] [address] [place] [address], [place] [phone] * (ABNORMAL) Basic metabolic panel (12/13/2024 10:28 AM EDT) Only the most recent of2 resultswithin the time period is included. Sodium 134 133 - 145 mmol/L LAB CHEMISTRY METHOD 12/13/2024 11:51 AM [facility] Potassium 4.8 3.5 - 5.5 mmol/L LAB CHEMISTRY METHOD 12/13/2024 11:51 AM [facility] Chloride 105 96 - 110 mmol/L LAB CHEMISTRY METHOD 12/13/2024 11:51 AM [facility] CO2 19(L) 21 - 32 mmol/L LAB CHEMISTRY METHOD 12/13/2024 11:51 AM [facility] Anion Gap 10 3 - 11 LAB CHEMISTRY METHOD 12/13/2024 11:51 AM [facility] Glucose 141(H) 70 - 100 mg/dL LAB CHEMISTRY METHOD 12/13/2024 11:51 AM [facility] BUN 80(H) 5 - 25 mg/dL LAB CHEMISTRY METHOD 12/13/2024 11:51 AM [facility] Creatinine 5.52(H) 0.70 - 1.30 mg/dL LAB CHEMISTRY METHOD 12/13/2024 11:51 AM [facility] eGFR 11(L) >=60 mL/min/1. 73m2 LAB CHEMISTRY METHOD 12/13/2024 11:51 AM EDT [facility] Comment:Calculation based on the Chronic Kidney Disease Epidemiology Collaboration (CKD-EPI) equation refit without adjustment for race. BUN/Creatinine Ratio 14.5 LAB CHEMISTRY METHOD 12/13/2024 11:51 AM EDT [facility] Calcium 8.3(L) 8.5 - 10.5 mg/dL LAB CHEMISTRY METHOD 12/13/2024 11:51 AM EDT [facility] Blood Venous blood specimen / Unknown Venipuncture / Unknown 12/13/2024 10:28 AM EDT 12/13/2024 11:25 AM EDT Shira Holliday NP LAB BLOOD ORDERABLES Final Result Performing Organization Address City/[facility]/ZIP Co de Phone Number [facility] [address] [place] [address], [place] [phone] * (ABNORMAL) POCT Glucose, blood (12/13/2024 10:01 AM EDT) Only the most recent of40 resultswithin the time period is included. [facility] Glucose POCT 157(H) 70 - 100 mg/dL 12/13/2024 10:02 AM EDT [facility] Blood Capillary blood specimen / Unknown 12/13/2024 10:01 AM EDT 12/13/2024 10:03 AM EDT Bre Garcia DO LAB POINT OF CARE TEST DOCKED DEVICE UNSOLICITED RESULTS Final Result [facility] [address] [place] [address], [place] [phone] * CT Head Stroke wo Contrast (12/13/2024 [...] Signed Date: 12/13/2024 08:46 ET Workstation ID: [id number] Transcribed By: Self Edit Transcribed Date: 12/13/2024 [...] Signed Date: 12/13/2024 08:46 ET Workstation ID: [id number] Transcribed By: Self Edit Transcribed Date: 12/13/2024 08:43 ET Shira Holliday NP IMG CT PROCEDURES Fi nal Result * ECG 12 lead (12/13/2024 7:53 AM EDT) Pathologist [facility] Ventricular Rate ECG 103 BPM GEMUSE Atrial Rate 103 BPM GEMUSE P-R Interval 176 ms GEMUSE QRS Duration 82 ms GEMUSE Q-T Interval 310 ms GEMUSE QTc 406 ms GEMUSE P Wave [place] 48 degrees GEMUSE R [place] 3 degrees GEMUSE T [place] 73 degrees GEMUSE ECG Interpretation Sinus tachycardia with occasional Premature ventricular complexes Possible Left atrial enlargement Nonspecific T wave abnormality Abnormal ECG When compared with ECG of 28-OCT-2023 22:22, Premature ventricular complexes are now Present Nonspecific T wave abnormality now evident in Lateral leads Confirmed by ALEJANDRO MICHAEL ([id number]) on 12/14/2024 8:20:15 AM GEMUSE 12/13/2024 7:53 AM EDT 12/14/2024 8:20 AM EDT us Shira Holliday NP ECG ORDERABLES Catalina l Result GEMUSE * (ABNORMAL) Comprehensive metabolic panel (12/12/2024 5:04 AM EDT) Only the most recent of3 resultswithin the time period is included. Pathologist [facility] Sodium 134 133 - 145 mmol/L LAB CHEMISTRY METHOD 12/12/2024 5:48 AM EDT [facility] Potassium 5.3 3.5 - 5.5 mmol/L LAB CHEMISTRY METHOD 12/12/2024 5:48 AM EDT [facility] Chloride 105 96 - 110 mmol/L LAB CHEMISTRY METHOD 12/12/2024 5:48 AM [facility] CO2 21 21 - 32 mmol/L LAB CHEMISTRY METHOD 12/12/2024 5:48 AM [facility] Anion Gap 8 3 - 11 LAB CHEMISTRY METHOD 12/12/2024 5:48 AM [facility] Glucose 261(H) 70 - 100 mg/dL LAB CHEMISTRY METHOD 12/12/2024 5:48 AM [facility] BUN 84(H) 5 - 25 mg/dL LAB CHEMISTRY METHOD 12/12/2024 5:48 AM [facility] Creatinine 5.65(H) 0.70 - 1.30 mg/dL LAB CHEMISTRY METHOD 12/12/2024 5:48 AM [facility] eGFR 10(L) >=60 mL/min/1. 73m2 LAB CHEMISTRY METHOD 12/12/2024 5:48 AM [facility] Comment:Calculation based on the Chronic Kidney Disease Epidemiology Collaboration (CKD-EPI) equation refit without adjustment for race. BUN/Creatinine Ratio 14.9 LAB CHEMISTRY METHOD 12/12/2024 5:48 AM [facility] Calcium 7.9(L) 8.5 - 10.5 mg/dL LAB CHEMISTRY METHOD 12/12/2024 5:48 AM [facility] AST (SGOT) 19 10 - 42 unit/L LAB CHEMISTRY METHOD 12/12/2024 5:48 AM [facility] ALT (SGPT) 35 10 - 60 unit/L LAB CHEMISTRY METHOD 12/12/2024 5:48 AM [facility] Alkaline Phosphatase 157(H) 42 - 121 unit/L LAB CHEMISTRY METHOD 12/12/2024 5:48 AM [facility] Total Protein 5.0(L) 6.0 - 8.0 g/dL LAB CHEMISTRY METHOD 12/12/2024 5:48 AM [facility] Albumin 2.0(L) 3.2 - 5.0 g/dL LAB CHEMISTRY METHOD 12/12/2024 5:48 AM EDT [facility] Total Bilirubin 0.3 0.0 - 1.4 mg/dL LAB CHEMISTRY METHOD 12/12/2024 5:48 AM EDT [facility] Blood Venous blood specimen / Unknown Venipuncture / Unknown 12/12/2024 5:04 AM EDT 12/12/2024 5:20 AM EDT Shelly SUBRAMANIAN LAB BLOOD ORDERABLES Final R esult [facility] [address] [place] [address], [place] [phone] * Iron (12/10/2024 5:19 AM EDT) Iron 64 50 - 160 mcg/dL LAB CHEMISTRY METHOD 12/10/2024 2:35 PM EDT [facility] Blood Venous blood specimen / Unknown Venipuncture / Unknown 12/10/2024 5:19 AM EDT 12/10/2024 6:51 AM EDT Shelly SUBRAMANIAN LAB BLOOD ORDERABLES Final R esult [facility] [address] [place] [address], [place] [phone] * Ferritin (12/10/2024 5:19 AM EDT) Ferritin 328 26 - 388 ng/mL LAB CHEMISTRY METHOD 12/10/2024 2:35 PM EDT [facility] Blood Venous blood specimen / Unknown Venipuncture / Unknown 12/10/2024 5:19 AM EDT 12/10/2024 6:51 AM EDT Shelly SUBRAMANIAN LAB BLOOD ORDERABLES Final R esult [facility] [address] [place] [address], * XR Chest 2 Views (12/09/2024 2:20 PM EDT) Anatomical Region Laterality Modality Body Radiographic Adelaide ging 12/09/2024 2:31 PM EDT Impressions 12/09/2024 2:32 PM EDT Impression: Mild bibasilar subsegmental atelectasis or scar. Telerad MORIS ([id number]) -------- FINAL REPORT -------- Dictated By: Emily Hernandez Dictated Date: 12/09/2024 14:31 ET Assigned Physician: Emily Hernandez Reviewed and Electronically Signed By: Emily Hernandez Signed Date: 12/09/2024 14:32 ET Workstation ID: [id number] Transcribed By: Self Edit Transcribed Date: 12/09/2024 [...] bibasilar subsegmental atelectasis or scar. Telerad MORIS ([id number]) -------- FINAL REPORT -------- Dictated By: Emily Hernandez Dictated Date: 12/09/2024 14:31 ET Assigned Physician: Emily Hernandez Reviewed and Electronically Signed By: Emily Hernandez Signed Date: 12/09/2024 14:32 ET Workstation ID: [id number] Transcribed By: Self Edit Transcribed Date: 12/09/2024 14:31 ET us Shelly SUBRAMANIAN IMG XR PROCEDURES Final Resu lt * (ABNORMAL) Urinalysis with reflex microscopic and culture (12/09/2024 1:59 PM EDT) Specific [place] Urine 1.015 1.003 - 1.030 LAB URINALYSIS - AUTOMATED METHOD 12/09/2024 2:31 PM [facility] pH, Urine 6.5 5.0 - 8.0 pH LAB URINALYSIS - AUTOMATED METHOD 12/09/2024 2:31 PM [facility] Leukocytes, Urine Negative Negative LAB URINALYSIS - AUTOMATED METHOD 12/09/2024 2:31 PM [facility] Nitrite, Urine Negative Negative LAB URINALYSIS - AUTOMATED METHOD 12/09/2024 2:31 PM [facility] Protein, Urine 300(A) <=Trace mg/dL LAB URINALYSIS - AUTOMATED METHOD 12/09/2024 2:31 PM [facility] Glucose, Urine >=1000(A) Negative mg/dL LAB URINALYSIS - AUTOMATED METHOD 12/09/2024 2:31 PM [facility] Ketones, Urine Negative Negative mg/dL LAB URINALYSIS - AUTOMATED METHOD 12/09/2024 2:31 PM [facility] Urobilinogen , Urine 1.0 0.2 - 1.0 mg/dL LAB URINALYSIS - AUTOMATED METHOD 12/09/2024 2:31 PM EDT [facility] Bilirubin, Urine Negative Negative LAB URINALYSIS - AUTOMATED METHOD 12/09/2024 2:31 PM EDT [facility] Blood, Urine Negative Negative LAB URINALYSIS - AUTOMATED METHOD 12/09/2024 2:31 PM EDT [facility] RBC, Urine 5.4(H) 0 - 4 /HPF LAB URINALYSIS - AUTOMATED METHOD 12/09/2024 2:31 PM EDT [facility] WBC, Urine 1.3 0 - 4 /HPF LAB URINALYSIS - AUTOMATED METHOD 12/09/2024 2:31 PM EDT [facility] Squamous Epithelial, Urine 17 0 - 60 /LPF LAB URINALYSIS - AUTOMATED METHOD 12/09/2024 2:[facility] Bacteria, Urine Negative Negative /HPF LAB URINALYSIS - AUTOMATED METHOD 12/09/2024 2:31 PM T [facility] Hyaline Casts, Urine 1.2 0 - 3 /LPF LAB URINALYSIS - AUTOMATED METHOD 12/09/2024 2:31 PM T [facility] Urine Urine specimen obtained by clean catch procedure / Unknown Non-blood Collection / Unknown 12/09/2024 1:59 PM EDT 12/09/2024 2:24 PM EDT us Shelly SUBRAMANIAN LAB URINE ORDERABLES Final R esult [facility] [address] [place] [address], * Can urine culture tube (12/09/2024 1:59 PM EDT) Extra Tube Hold for add-ons. 12/09/2024 4:01 PM EDT [facility] Comment:Auto resulted. Urine Urine specimen obtained by clean catch procedure / Unknown Non-blood Collection / Unknown 12/09/2024 1:59 PM EDT 12/09/2024 2:24 PM EDT Shelly Alexandre PA LAB URINE ORDERABLES Final R esult Performing Organization Address [facility]/ZIP Co de Phone Number [facility] [address] [place] [address], * (ABNORMAL) Phosphorus (12/09/2024 5:30 AM EDT) Phosphorus 4.7(H) 2.5 - 4.5 mg/dL LAB CHEMISTRY METHOD 12/09/2024 7:09 AM EDT [facility] Blood Venous blood specimen / Unknown Venipuncture / Unknown 12/09/2024 5:30 AM EDT 12/09/2024 6:05 AM EDT Shira Holliday NP LAB BLOOD ORDERABLES Final Result Performing Organization Address [facility] de Phone Number [facility] [address] [place] [address], * (ABNORMAL) CBC auto differential (12/04/2024 6:05 AM EDT) WBC 4.6(L) 4.8 - 10.8 K/[facility] LAB HEMETOLOGY METHOD 12/04/2024 6:57 AM EDT [facility] RBC 2.40(L) 4.50 - 5.50 M/[facility] LAB HEMETOLOGY METHOD 12/04/2024 6:57 AM EDT [facility] Hemoglobin 7.6(L) 13.5 - 17.5 g/dL LAB HEMETOLOGY METHOD 12/04/2024 6:57 AM EDT [facility] Hematocrit 23.5(L) 42.0 - 54.0 % LAB HEMETOLOGY METHOD 12/04/2024 6:57 AM T [facility] MCV 96.7 79.0 - 98.0 FL LAB HEMETOLOGY METHOD 12/04/2024 6:57 AM [facility] MCH 31.3 27.0 - 32.0 pcg LAB HEMETOLOGY METHOD 12/04/2024 6:57 AM [facility] MCHC 32.3 32.0 - 37.0 g/dL LAB HEMETOLOGY METHOD 12/04/2024 6:57 AM [facility] RDW 12.2 11.0 - 15.0 % LAB HEMETOLOGY METHOD 12/04/2024 6:57 AM [facility] Platelets 180 130 - 400 K/mcL LAB HEMETOLOGY METHOD 12/04/2024 6:57 AM [facility] MPV 10.5 7.0 - 11.0 FL LAB HEMETOLOGY METHOD 12/04/2024 6:57 AM [facility] NRBC 0.0 <1.0 % LAB HEMETOLOGY METHOD 12/04/2024 6:57 AM [facility] NRBC Absolute 0.00 <0.10 K/mcL LAB HEMETOLOGY METHOD 12/04/2024 6:57 AM [facility] Neutrophils Relative 51.8 % LAB HEMETOLOGY METHOD 12/04/2024 6:57 AM [facility] Lymphocytes Relative 21.4 % LAB HEMETOLOGY METHOD 12/04/2024 6:57 AM [facility] Monocytes Relative 16.8 % LAB HEMETOLOGY METHOD 12/04/2024 6:57 AM [facility] Eosinophils Relative 8.9 % LAB HEMETOLOGY METHOD 12/04/2024 6:57 AM [facility] Basophils Relative 0.4 % LAB HEMETOLOGY METHOD 12/04/2024 6:57 AM EDT [facility] Immature Granulocytes Relative 0.7 % LAB HEMETOLOGY METHOD 12/04/2024 6:57 AM EDT [facility] Neutrophils Absolute 2.38 1.50 - 7.00 K/mcL LAB HEMETOLOGY METHOD 12/04/2024 6:57 AM EDT [facility] Lymphocytes Absolute 0.98(L) 1.00 - 5.00 K/mcL LAB HEMETOLOGY METHOD 12/04/2024 6:57 AM EDT [facility] Monocytes Absolute 0.77 0.20 - 1.00 K/mcL LAB HEMETOLOGY METHOD 12/04/2024 6:57 AM EDT [facility] Eosinophils Absolute 0.41 0.00 - 0.50 K/mcL LAB HEMETOLOGY METHOD 12/04/2024 6:57 AM EDT [facility] Basophils Absolute 0.02 0.00 - 0.20 K/mcL LAB HEMETOLOGY METHOD 12/04/2024 6:57 AM EDT [facility] Immature Granulocytes Absolute 0.03 0.00 - 0.03 K/mcL LAB HEMETOLOGY METHOD 12/04/2024 6:57 AM EDT [facility] Blood Venous blood specimen / Unknown Venipuncture / Unknown 12/04/2024 6:05 AM EDT 12/04/2024 6:32 AM EDT us [place] SUBRAMANIAN LAB BLOOD ORDERABLES Final Re sult [facility] [address] [place] [address], * Prothrombin time with INR (12/04/2024 6:05 AM EDT) Protime 11.7 10.6 - 13.9 sec LAB COAGULATION METHOD 12/04/2024 6:56 AM EDT [facility] INR 0.9 LAB COAGULATION METHOD 12/04/2024 6:56 AM EDT [facility] Blood Venous blood specimen / Unknown Venipuncture / Unknown 12/04/2024 6:05 AM EDT 12/04/2024 6:31 AM EDT [facility] [place] [facility] BLOOD ORDERABLES Final Re sult [facility] [address] [place] [address], from Last 3 Months Insurance [facility] OPT[employer] Member Subscriber Plan / Payer (Ef fective 2021-Present) Name:Luisito Sam Relation to Subscriber:Self Name:Luisito Sam Payer ID:[id number] Group ID:[id number] Type:Not on file Address: [facility] [address] [id number] [facility] Advance Directives Documents on File Type Date Recorded 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 Care Teams Ssrs Developer Relationship Specialty Start Date End Date Rashid Steele PA [address] [place] [id number] PCP - General Internal Medicine 08/12/24
[2025-01-13 18:52] LABS: Hematocrit 29.1 % (42.0-52.0); Hemoglobin 9.0 g/dl (14.0-18.0); Mean Corpuscular HGB Conc 30.9 g/dl (31.0-36.0); Mean Corpuscular Hemoglobin 32.1 pg (27.0-33.0); Mean Corpuscular Volume 103.9 fL (80.0-98.0); NRBC Abs Auto 0.000 X10*3/uL (0.0-0.012); NRBC Pct Auto 0.0 /100WBC (0.0-0.2); Platelet Count 151 X10*3/uL (160-400); Red Blood Count 2.80 X10*6/uL (4.60-5.80); White Blood Count 3.8 X10*3/uL (4.8-10.8)
[2025-01-13 19:35] LABS: Anion Gap 12 (12-20); Blood Urea Nitrogen 58 mg/dL (9-16); Calcium 8.0 mg/dL (8.4-10.2); Carbon Dioxide 22 mmol/L (22-29); Chloride 103 mmol/L (96-108); Estimated Glomerular Filt Rate 11; Potassium 4.8 mmol/L (3.3-5.1); Sodium 132 mmol/L (135-145)
--- OUTSIDE RECORDS SUMMARY | 2025-02-15 20:00 | XMS_ITS | Clinical Summary ---
Author Organization Unknown Care Team Providers Care Sql Bi Developer Name Role Phone MAMADOU SUBRAMANIAN, RASHID Unavailable Unavailable RN, LUISA Unavailable Unavailable ASHUTOSH GOODSONN, SHAY Unavailable Unavailable CHRISOTS PT, ESVIN Unavailable Unavailable MATEUS DIRECTOR VALIDATION, JARED Unavailable Unavailable LENGIEZA OT, RINA Unavailable Unavailable CONDINO ILANA/RUBI, MARTINA Unavailable Unav ailable Payers Payer Name Policy Type Policy Number Effective Date Expira tion Date [facility].OPTUM.[email or web address] Problems Condition Name Condition Details Condition Category Status Onset Date Resolution Date Last Treatment Date Treating Clinician Comments HEMIPLGA FOLLOWING CEREBRAL INFRC AFFECTING LEFT NONDOM SIDE Active 12-19 00:00: 00 DYSARTHRIA FOLLOWING CEREBRAL INFARCTION Active 12-19 00:00: 00 ATAXIA FOLLOWING CEREBRAL INFARCTION Active 12-19 00:00: 00 HYPERTENSIVE ENCEPHALOPAT HY Active 12-19 00:00: 00 HYP CHR KIDNEY DISEASE W STAGE 5 CHR KIDNEY DISEASE OR ESRD Active 12-19 00:00: 00 TYPE 2 DIABETES MELLITUS W DIABETIC CHRONIC KIDNEY DISEASE Active 12-19 00:00: 00 CHRONIC KIDNEY DISEASE, STAGE 5 Active 12-19 00:00: 00 ANEMIA IN CHRONIC KIDNEY DISEASE Active 12-19 00:00: 00 UNSPECIFIED CONVULSIONS Active 12-19 00:00: 00 OTHER CARDIOMYOPAT HIES Active 12-19 00:00: 00 ALCOHOLIC CIRRHOSIS OF LIVER WITHOUT ASCITES Active 04-23 00:00: 00 ALCOHOLIC LIVER DISEASE, UNSPECIFIED Active 04-23 00:00: 00 ALCOHOL ABUSE, UNCOMPLICATE D Active 04-23 00:00: 00 TYPE 2 DIABETES W DIABETIC PERIPHERAL ANGIOPATH W/O GANGRENE Active 04-23 00:00: 00 TYPE 2 DIABETES MELLITUS WITH DIABETIC NEUROPATHY, UNSP Active 04-23 00:00: 00 UNSPECIFIED OSTEOARTHRIT IS, UNSPECIFIED SITE Active 04-23 00:00: 00 OTHER SPONDYLOSIS WITH RADICULOPATH Y, CERVICAL REGION Active 04-23 00:00: 00 ACUTE KIDNEY FAILURE, UNSPECIFIED Active 12-19 00:00: 00 DORSALGIA, UNSPECIFIED Active 04-23 00:00: 00 SENSORINEURA L HEARING LOSS, BILATERAL Active 04-23 00:00: 00 TYPE 2 DIAB WITH MILD NONP RTNOP WITHOUT MACULAR EDEMA, UNSP Active 04-23 00:00: 00 PRIMARY OPEN-ANGLE GLAUCOMA, BILATERAL, MODERATE STAGE Active 04-23 00:00: 00 BENIGN PROSTATIC HYPERPLASIA WITHOUT LOWER URINRY TRACT SYMP Active 04-23 00:00: 00 OVERWEIGHT Active 04-23 00:00: 00 PATENT FORAMEN OVALE Active 04-23 00:00: 00 INVESTIGATOR CASH SHORTAGE (CURRENT) USE OF ORAL HYPOGLYCEMIC DRUGS Active 12-19 00:00: 00 INVESTIGATOR CASH SHORTAGE (CURRENT) USE OF INSULIN Active 12-19 00:00: 00 FCI (CURRENT) USE OF ASPIRIN Active 12-19 00:00: 00 BODY MASS INDEX [BMI] 24.0-24.9, ADULT Active 12-19 00:00: 00 Allergies, Adverse Reactions, Alerts Allergy Name Allergy Type Status Severity Reaction(s) Onset Date Inactive Date Treating Clinician Comments LISINOPRIL Propensity to adverse reactions Active 12-19 10:30: 35 Medications Ordered Medication Name Filled Medication Name Start Date Stop Date Current Medication? Ordering Clinician Indication Dosage Frequency Signature (SIG) Comments Components Farxiga 5 mg tablet 11-19 00:00: 00 Yes [id number] DIABETES 1 tablet DAILY 1 tablet DAILY (route: oral) Med Classific ation: Endocrine clonidine HCl 0.1 mg tablet 11-15 00:00: 00 Yes [id number] HTN Per instruc tions TWICE DAILY Per instructio ns TWICE DAILY (route: oral) Med Classific ation: Cardiovas cular Therapy Agents aspirin 81 mg tablet 12-19 00:00: 00 Yes [id number] BLOOD CLOT PREVENTION 1 tablet DAILY 1 tablet DAILY (route: oral) Med Classific ation: Hematolog ical Agents carvedilol 25 mg tablet 12-19 00:00: 00 Yes [id number] HTN 1 tablet 2 TIMES DAILY 1 tablet 2 TIMES DAILY (route: oral) Med Classific ation: Cardiovas cular Therapy Agents hydralazine 100 mg tablet 12-19 00:00: 00 Yes [id number] HTN 1 tablet 3 TIMES DAILY 1 tablet 3 TIMES DAILY (route: oral) Med Classific ation: Cardiovas cular Therapy Agents insulin glargine (U-100) 100 unit/mL (3 mL) subcutaneou s pen 12-19 00:00: 00 Yes [id number] DIABETES 18 unit BEDTIME 18 unit BEDTIME (route: subcutaneo us) Med Classific ation: Endocrine insulin lispro (U-100) 100 unit/mL subcutaneou s pen 12-19 00:00: 00 Yes [id number] DIABETES 3-13 unit 3 TIMES DAILY 3-13 unit 3 TIMES DAILY (route: subcutaneo us) Med Classific ation: Endocrine rosuvastati n 40 mg tablet 12-19 00:00: 00 Yes [id number] CHOLESTEROL 1 tablet BEDTIME 1 tablet BEDTIME (route: oral) Med Classific ation: Cardiovas cular Therapy Agents tamsulosin 0.4 mg capsule 12-19 00:00: 00 Yes [id number] BPH 1 capsule BEDTIME 1 capsule BEDTIME (route: oral) Med Classific ation: Genitouri nary Therapy Vital Signs Vital Name Observation Time Observation Value Commen ts Temperature 2025-01-07 11:31:00.000 98.3 [degF] Temperature 2024-12-24 10:27:00.000 97 [degF] Temperature 2024-12-19 11:09:00.000 97.7 [degF] BMI (%) 2025-01-07 11:29:14.000 24 kg/m2 BMI (%) 2024-12-19 11:09:00.000 24 kg/m2 Height 2025-01-07 11:29:05.000 72 [in_us] Height 2024-12-19 11:09:00.000 72 [in_us] Pulse 2025-01-07 11:31:00.000 78 /min Pulse 2024-12-24 10:27:00.000 73 /min Pulse 2024-12-19 11:09:00.000 70 /min O2 Saturation (%) 2025-01-07 11:31:00.000 97 % O2 Saturation (%) 2024-12-24 10:27:00.000 98 % O2 Saturation (%) 2024-12-19 11:09:00.000 98 % Respirations 2025-01-07 11:31:00.000 18 /min Respirations 2024-12-24 10:27:00.000 18 /min Respirations 2024-12-19 11:09:00.000 18 /min Weight (lbs) 2025-01-07 11:29:14.000 180.8 [lb_av] Weight (lbs) 2024-12-19 11:09:00.000 181 [lb_av] Systolic Blood Pressure 2025-01-07 11:31:00.000 110 mm [Hg] Systolic Blood Pressure 2024-12-24 10:27:00.000 132 mm [Hg] Systolic Blood Pressure 2024-12-19 11:09:00.000 110 mm [Hg] Diastolic Blood Pressure 2025-01-07 11:31:00.000 62 mm [Hg] Diastolic Blood Pressure 2024-12-24 10:27:00.000 70 mm [Hg] Diastolic Blood Pressure 2024-12-19 11:09:00.000 60 mm [Hg] Plan of Treatment Planned Activity Planned Date Details Comments Future Scheduled Test RN TO OBSE RVE, ASSESS, EVALUATE, AND DEVELOP AN INDIVIDUALIZED PLAN OF CARE. AGENCY MAY ACCEPT ORDERS FROM CONSULTING PHYSICIANS. RN TO OBSERVE AND ASSESS, TRAINING DEVELOPER/TELEVISION DIRECTOR TO OBSERVE FOR RISK FOR FALLS AND INSTRUCT IN FALL PREVENTION, HOME SAFETY, MEDICATION MANAGEMENT, INFECTION PREVENTION, AND NUTRITION MANAGEMENT. RN/TRAINING DEVELOPER/TELEVISION DIRECTOR NURSE MAY PERFORM O2 SATURATION LEVEL ON ADMISSION AND PRN FOR RN TO ASSESS/TRAINING DEVELOPER TO OBSERVE PATIENT, WITH NOTIFICATION TO THE PHYSICIAN IF SATURATION IS 90% IN THE ABSENCE OF MORE SPECIFIC PARAMETERS FROM THE PHYSICIAN. AGENCY MAY PERFORM A RESUMPTION OF CARE VISIT FOLLOWING ANY HOSPITAL ADMISSION. RN/TRAINING DEVELOPER/TELEVISION DIRECTOR TO MONITOR CO-MORBID CONDITIONS LISTED ON THE PLAN OF CARE AND ANY NEW CONDITIONS THAT PRESENT THEMSELVES DURING THIS EPISODE TO IDENTIFY CHANGES AND INTERVENE TO MINIMIZE COMPLICATIONS. [code = RN TO OBSERVE, ASSESS, EVALUATE, AND DEVELOP AN INDIVIDUALIZED PLAN OF CARE. AGENCY MAY ACCEPT ORDERS FROM CONSULTING PHYSICIANS. RN TO OBSERVE AND ASSESS, TRAINING DEVELOPER/TELEVISION DIRECTOR TO OBSERVE FOR RISK FOR FALLS AND INSTRUCT IN FALL PREVENTION, HOME SAFETY, MEDICATION MANAGEMENT, INFECTION PREVENTION, AND NUTRITION MANAGEMENT. RN/TRAINING DEVELOPER/TELEVISION DIRECTOR NURSE MAY PERFORM O2 SATURATION LEVEL ON ADMISSION AND PRN FOR RN TO ASSESS/TRAINING DEVELOPER TO OBSERVE PATIENT, WITH NOTIFICATION TO THE PHYSICIAN IF SATURATION IS 90% IN THE ABSENCE OF MORE SPECIFIC PARAMETERS FROM THE PHYSICIAN. AGENCY MAY PERFORM A RESUMPTION OF CARE VISIT FOLLOWING ANY HOSPITAL ADMISSION. RN/TRAINING DEVELOPER/TELEVISION DIRECTOR TO MONITOR CO-MORBID CONDITIONS LISTED ON THE PLAN OF CARE AND ANY NEW CONDITIONS THAT PRESENT THEMSELVES DURING THIS EPISODE TO IDENTIFY CHANGES AND INTERVENE TO MINIMIZE COMPLICATIONS.] Future Scheduled Test RISK FOR H OSPITALIZATION; RN TO ASSESS/TEACH, TELEVISION DIRECTOR/TRAINING DEVELOPER TO OBSERVE/TEACH PATIENT/CAREGIVER ON RISK FOR HOSPITALIZATION/EMERGENCY ROOM VISITS, TEACH SIGNS AND SYMPTOMS THAT PUT PATIENT AT RISK, WHEN TO NOTIFY NURSE/PHYSICIAN OF COMPLICATIONS/DECLINE, AND WHEN TO CALL 911. [code = RISK FOR HOSPITALIZATION; RN TO ASSESS/TEACH, TELEVISION DIRECTOR/TRAINING DEVELOPER TO OBSERVE/TEACH PATIENT/CAREGIVER ON RISK FOR HOSPITALIZATION/EMERGENCY ROOM VISITS, TEACH SIGNS AND SYMPTOMS THAT PUT PATIENT AT RISK, WHEN TO NOTIFY NURSE/PHYSICIAN OF COMPLICATIONS/DECLINE, AND WHEN TO CALL 911.] Future Scheduled Test MEDICATION MANAGEMENT; RN/TRAINING DEVELOPER/TELEVISION DIRECTOR TO REVIEW MEDICATIONS FOR INTERACTIONS, EFFECTIVENESS OF DRUG THERAPY, AND SIGNS/SYMPTOMS OF ADVERSE REACTIONS. MAY INSTRUCT AND REINFORCE MEDICATION TEACHING RELATED TO THE USE OF MEDICATIONS, DOSAGE, FREQUENCY, PURPOSE, SIDE EFFECTS, AND TO REPORT COMPLICATIONS. [code = MEDICATION MANAGEMENT; RN/TRAINING DEVELOPER/TELEVISION DIRECTOR TO REVIEW MEDICATIONS FOR INTERACTIONS, EFFECTIVENESS OF DRUG THERAPY, AND SIGNS/SYMPTOMS OF ADVERSE REACTIONS. MAY INSTRUCT AND REINFORCE MEDICATION TEACHING RELATED TO THE USE OF MEDICATIONS, DOSAGE, FREQUENCY, PURPOSE, SIDE EFFECTS, AND TO REPORT COMPLICATIONS.] Future Scheduled Test CARDIOVASC ULAR SYSTEM; RN TO ASSESS/TEACH, TRAINING DEVELOPER/TELEVISION DIRECTOR TO OBSERVE/TEACH RELATED TO ALTERED CARDIOVASCULAR STATUS TO MINIMIZE COMPLICATIONS AND REDUCE HOSPITALIZATION. [code = CARDIOVASCULAR SYSTEM; RN TO ASSESS/TEACH, TRAINING DEVELOPER/TELEVISION DIRECTOR TO OBSERVE/TEACH RELATED TO ALTERED CARDIOVASCULAR STATUS TO MINIMIZE COMPLICATIONS AND REDUCE HOSPITALIZATION.] Future Scheduled Test HYPERTENSI ON MANAGEMENT; RN TO ASSESS AND TEACH, TRAINING DEVELOPER/TELEVISION DIRECTOR TO OBSERVE AND TEACH WARNING SIGNS AND SYMPTOMS TO AVOID HOSPITALIZATION. [code = HYPERTENSION MANAGEMENT; RN TO ASSESS AND TEACH, TRAINING DEVELOPER/TELEVISION DIRECTOR TO OBSERVE AND TEACH WARNING SIGNS AND SYMPTOMS TO AVOID HOSPITALIZATION.] Future Scheduled Test NEUROLOGIC AL SYSTEM MANAGEMENT; RN TO ASSESS AND TEACH, TELEVISION DIRECTOR/TRAINING DEVELOPER TO OBSERVE AND TEACH RELATED TO ALTERED NEUROLOGICAL STATUS TO MINIMIZE COMPLICATIONS AND REDUCE HOSPITALIZATION. [code = NEUROLOGICAL SYSTEM MANAGEMENT; RN TO ASSESS AND TEACH, TELEVISION DIRECTOR/TRAINING DEVELOPER TO OBSERVE AND TEACH RELATED TO ALTERED NEUROLOGICAL STATUS TO MINIMIZE COMPLICATIONS AND REDUCE HOSPITALIZATION.] Future Scheduled Test CEREBRAL V ASCULAR ACCIDENT MANAGEMENT; RN/TELEVISION DIRECTOR/TRAINING DEVELOPER TO PROVIDE SKILLED TEACHING AND MANAGEMENT OF POST CEREBRAL VASCULAR ACCIDENT. [code = CEREBRAL VASCULAR ACCIDENT MANAGEMENT; RN/TELEVISION DIRECTOR/TRAINING DEVELOPER TO PROVIDE SKILLED TEACHING AND MANAGEMENT OF POST CEREBRAL VASCULAR ACCIDENT.] Future Scheduled Test SKIN INTEG RITY RN TO ASSESS AND TEACH, TRAINING DEVELOPER/TELEVISION DIRECTOR TO OBSERVE AND TEACH INTEGUMENTARY STATUS TO IDENTIFY CHANGES AND INTERVENE TO MINIMIZE COMPLICATIONS. PROVIDE SKILLED TEACHING OF GENERAL WOUND AND SKIN CARE AND PREVENTION RELATED TO POTENTIAL FOR OR ACTUAL ALTERED SKIN INTEGRITY. [code = SKIN INTEGRITY RN TO ASSESS AND TEACH, TRAINING DEVELOPER/TELEVISION DIRECTOR TO OBSERVE AND TEACH INTEGUMENTARY STATUS TO IDENTIFY CHANGES AND INTERVENE TO MINIMIZE COMPLICATIONS. PROVIDE SKILLED TEACHING OF GENERAL WOUND AND SKIN CARE AND PREVENTION RELATED TO POTENTIAL FOR OR ACTUAL ALTERED SKIN INTEGRITY.] Future Scheduled Test PAIN MANAG EMENT; RN TO ASSESS AND TEACH, TELEVISION DIRECTOR/TRAINING DEVELOPER TO OBSERVE AND TEACH AND PROVIDE EDUCATION ON PAIN MANAGEMENT TECHNIQUES. [code = PAIN MANAGEMENT; RN TO ASSESS AND TEACH, TELEVISION DIRECTOR/TRAINING DEVELOPER TO OBSERVE AND TEACH AND PROVIDE EDUCATION ON PAIN MANAGEMENT TECHNIQUES.] Future Scheduled Test DIABETES M ANAGEMENT; RN TO ASSESS AND TEACH, TELEVISION DIRECTOR/TRAINING DEVELOPER TO OBSERVE AND TEACH INSTRUCTIONS OF DIABETIC CARE TO INCLUDE: DIABETIC DIET, SKIN CARE, SIGNS AND SYMPTOMS OF HYPO/HYPERGLYCEMIA, PROPER ADMINISTRATION OF DIABETIC MEDICATION. RN/TELEVISION DIRECTOR/TRAINING DEVELOPER TO INSTRUCT ON DIABETIC FOOT CARE AND MONITOR FOR SKIN LESIONS ON LOWER EXTREMITIES. BLOOD GLUCOSE TESTING 3 X DAILY AND PRN FREQ. RN TO ASSESS AND TEACH, TELEVISION DIRECTOR/TRAINING DEVELOPER TO OBSERVE AND TEACH PATIENT/CAREGIVER ABILITY TO PERFORM AND RECORD BLOOD GLUCOSE TESTING ORDERED AND TO REPORT ABNORMAL FINDINGS TO PHYSICIAN. RN/TELEVISION DIRECTOR/TRAINING DEVELOPER MAY PERFORM BLOOD GLUCOSE TEST NEEDED. RN/TELEVISION DIRECTOR/TRAINING DEVELOPER TO REPORT TO PHYSICIAN BLOOD GLUCOSE READINGS GREATER THAN 350 OR LESS THAN 70. RN/TELEVISION DIRECTOR/TRAINING DEVELOPER TO INSTRUCT PATIENT ON IMPORTANCE OF HGBA1C MONITORING, KIDNEY FUNCTION TEST, EYE AND FOOT EXAMS. [code = DIABETES MANAGEMENT; RN TO ASSESS AND TEACH, TELEVISION DIRECTOR/TRAINING DEVELOPER TO OBSERVE AND TEACH INSTRUCTIONS OF DIABETIC CARE TO INCLUDE: DIABETIC DIET, SKIN CARE, SIGNS AND SYMPTOMS OF HYPO/HYPERGLYCEMIA, PROPER ADMINISTRATION OF DIABETIC MEDICATION. RN/TELEVISION DIRECTOR/TRAINING DEVELOPER TO INSTRUCT ON DIABETIC FOOT CARE AND MONITOR FOR SKIN LESIONS ON LOWER EXTREMITIES. BLOOD GLUCOSE TESTING 3 X DAILY AND PRN FREQ. RN TO ASSESS AND TEACH, TELEVISION DIRECTOR/TRAINING DEVELOPER TO OBSERVE AND TEACH PATIENT/CAREGIVER ABILITY TO PERFORM AND RECORD BLOOD GLUCOSE TESTING ORDERED AND TO REPORT ABNORMAL FINDINGS TO PHYSICIAN. RN/TELEVISION DIRECTOR/TRAINING DEVELOPER MAY PERFORM BLOOD GLUCOSE TEST NEEDED. RN/TELEVISION DIRECTOR/TRAINING DEVELOPER TO REPORT TO PHYSICIAN BLOOD GLUCOSE READINGS GREATER THAN 350 OR LESS THAN 70. RN/TELEVISION DIRECTOR/TRAINING DEVELOPER TO INSTRUCT PATIENT ON IMPORTANCE OF HGBA1C MONITORING, KIDNEY FUNCTION TEST, EYE AND FOOT EXAMS.] Future Scheduled Test FALL REDUC TION MANAGEMENT; RN TO ASSESS AND OBSERVE, TRAINING DEVELOPER/TELEVISION DIRECTOR TO OBSERVE FALL RISK FACTORS AND EDUCATE PATIENT/CAREGIVER ON STRATEGIES TO MINIMIZE THE RISK OF FALLING. [code = FALL REDUCTION MANAGEMENT; RN TO ASSESS AND OBSERVE, TRAINING DEVELOPER/TELEVISION DIRECTOR TO OBSERVE FALL RISK FACTORS AND EDUCATE PATIENT/CAREGIVER ON STRATEGIES TO MINIMIZE THE RISK OF FALLING.] Future Scheduled Test PHYSICAL T HERAPIST TO EVALUATE FOR STRENGTH AND MOBILITY. [code = PHYSICAL THERAPIST TO EVALUATE FOR STRENGTH AND MOBILITY.] Goal 2025-01-07 Patient Goal - T O GET STRONGER OVERALL AND BE ABLE TO DO MY EXERCISES Goal Patient Goal - T O GET STRONGER OVERALL AND BE ABLE TO DO MY EXERCISES Goal Provider Goal - A PLAN OF CARE WILL BE ESTABLISHED THAT MEETS THE PATIENT S NEEDS. PATIENT WILL DEMONSTRATE OXYGEN SATURATION WITHIN NORMAL LIMITS OR PATIENT S OPTIMAL LEVEL ESTABLISHED BY THE PHYSICIAN THROUGHOUT CARE. CHANGES TO CO-MORBID CONDITIONS AND ANY NEW CONDITIONS WILL BE IDENTIFIED AND REPORTED TO THE PHYSICIAN. Goal Provider Goal - PATIENT/CAREGIVER WILL VERBALIZE UNDERSTANDING OF SIGNS AND SYMPTOMS THAT PUT THE PATIENT AT RISK FOR HOSPITALIZATION /EMERGENCY ROOM VISITS, WHEN TO NOTIFY NURSE/PHYSICIAN OF COMPLICATIONS/DECLINE AND WHEN TO CALL 911. Goal Provider Goal - PATIENT/CAREGIVER TO VERBALIZE, AND CONSISTENTLY DEMONSTRATE EFFECTIVE, SAFE MANAGEMENT OF MEDICATION INCLUDING KNOWLEDGE OF EFFECTIVENESS, POTENTIAL SIDE EFFECTS AND DRUG REACTIONS AND WHEN TO CONTACT THE APPROPRIATE CARE PROVIDER. PATIENT/CAREGIVER WILL BE ABLE TO VERBALIZE UNDERSTANDING OF MEDICATION REGIMEN AND ACCURATELY TAKE MEDICATIONS PRESCRIBED WITHOUT ADVERSE EFFECTS BY END OF EPISODE. Goal Provider Goal - PATIENT / CAREGIVER WILL VERBALIZE/DEMONSTRATE UNDERSTANDING OF MEASURES TO MANAGE ALTERED CARDIOVASCULAR STATUS BY END OF EPISODE. Goal Provider Goal - PATIENT / CAREGIVER WILL VERBALIZE/DEMONSTRATE AN ABILITY TO ADHERE TO SELF-MANAGEMENT OF HTN TO MINIMIZE COMPLICATIONS AND AVOID HOSPITALIZATION BY END OF EPISODE. Goal Provider Goal - PATIENT / CAREGIVER WILL VERBALIZE/DEMONSTRATE UNDERSTANDING OF MEASURES TO MANAGE ALTERED NEUROLOGICAL STATUS BY END OF EPISODE. Goal Provider Goal - PATIENT / CAREGIVER WILL VERBALIZE/DEMONSTRATE CARE AND SELF-MANAGEMENT OF CVA TO MINIMIZE COMPLICATIONS AND AVOID HOSPITALIZATION BY END OF EPISODE. Goal Provider Goal - CHANGES IN SKIN INTEGRITY STATUS WILL BE IDENTIFIED AND REPORTED TO THE PHYSICIAN FOR PROMPT INTERVENTION. PATIENT / CAREGIVER WILL VERBALIZE/DEMONSTRATE ADEQUATE KNOWLEDGE OF INTEGUMENTARY STATUS AND APPROPRIATE MEASURES TO PROMOTE SKIN INTEGRITY AND PREVENT INJURY BY END OF EPISODE. Goal Provider Goal - PATIENT / CAREGIVER WILL VERBALIZE / DEMONSTRATE UNDERSTANDING OF PAIN CONTROL MEASURES BY END OF EPISODE. Goal Provider Goal - PATIENT / CAREGIVER WILL VERBALIZE / DEMONSTRATE AN ABILITY TO ADHERE TO SELF-MANAGEMENT OF DIABETES MANAGEMENT BY END OF EPISODE. Goal Provider Goal - PATIENT/CAREGIVER WILL VERBALIZE/DEMONSTRATE UNDERSTANDING OF FALL RISK FACTORS AND IMPLEMENT STRATEGIES TO MINIMIZE FALL RISK. PATIENT/CAREGIVER WILL VERBALIZE/DEMONSTRATE AN ABILITY TO ADHERE TO FALL REDUCTION SELF-MANAGEMENT AND LIFE-STYLE CHANGES BY END OF EPISODE. Encounters Start Date/Time End Date/Time Encounter Type Admission Type Attending [facility] Care Department Encounter ID Discharge Date Discharge Status Discharge Condition Discharge Reason Percent Goals Met 2024-12-19 00:00:00 2025-02-16 00:00:00 Outpatient NEW ADMISSION LUISA ANTHONY [facility] [id number] [id number]
== END 2025-01-13 12:37 | disposition home or self-care (01) ==
LOC: HO.HKASLDS 12:36
PROVIDERS: Visit Provider Internal Medicine Hypertension Specialist
DX: N18.5 Chronic kidney disease, stage 5 (principal); D63.1 Anemia in chronic kidney disease
CPT/HCPCS: 36415; 80048; 85027

== ENCOUNTER 2025-01-14 11:09 | Outpatient (AMB) | payer OTHER, SELFPAY ==
--- NOTE | 2025-01-14 11:12 | HO.NEPHOV ---
Vital Signs 01/14/25 11:13 Height 5 ft 9 in BP 110/62 Blood Pressure Location Lt brachial Position Sitting Pulse 75 Pulse Source Pulse Oximeter Pulse Oximetry (%) 97 Oxygen Delivery Method Room Air Intake Visit Reasons: 2wk retacrit w lab-LVM Clam Sorter Required: No Accompanied by: Daughter Allergies lisinopril Allergy (Unknown, Verified 01/14/25 11:16) cough Medication List - Last Reconciled 01/14/25 by Tera Aguirre MD albuterol sulfate 90 mcg/actuation inhalation amlodipine 5 mg PO DAILY aspirin 81 mg PO DAILY bisacodyl (Dulcolax (bisacodyl)) 10 mg PO BEDTIME PRN blood sugar diagnostic (FreeStyle Lite Strips) As directed four times a day carvedilol 25 mg PO BID cholecalciferol (vitamin D3) 50 mcg PO DAILY clonidine HCl 0.1 mg PO BID dapagliflozin propanediol (Farxiga) 5 mg PO DAILY hydralazine 100 mg PO TID [insulin 62 units intradermal .after meals] insulin glargine (Lantus Solostar U-100 Insulin) 18 units subcut BEDTIME insulin lispro (Humalog U-100 Insulin) 22 units subcut .before meals peg 3350-electrolytes 236-22.74-6.74 -5.86 gram (Golytely) 240 mL PO Q10M 1 day pen needle, diabetic (BD Ultra-Fine Yuliana Pen Needle) As directed four times a day rosuvastatin 40 mg PO DAILY tamsulosin mg PO DAILY HPI Comments Details: 69 yr old man with long standing h/o HTN And DM for more than 5 years referred for CKD Creatinine was 1.2 in 2020. Creatinine has bumped up to 1.7 in June Currently on Bumex 0.5mg along with VAlsartan 320 mg 01/02/2024. 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 03/05/24 c/o Itching and rash x 3-4 weeks ;Farxiga was started 6 weeks ago. cr upto 2.98! 04/09/24 Still with itching; Off Farxiga; GAined 4 lbs ; c/o edema 06/11/24 Still has itching Has been taking Hydralazine QD instead of TID Lost 10-14 lbs with Bumex 08/06/24 No improving in Itching 09/03/24 69-year-old male seen for Chronic Kidney Disease and associated symptoms. He experiences persistent pruritus involving his eyes, scalp, arms, and legs, possibly linked to medication adjustments since the introduction of hydralazine. Attempts to modify medications have thus far provided insufficient relief for his symptoms. The patient also has a history of hypertension and diabetes mellitus with suboptimal glycemic control; his recent blood glucose was recorded at 238 mg/dL. He correlates dietary habits with blood sugar fluctuations and has been attempting to improve these. Concurrently, the patient reports peripheral edema with associated discoloration. His CKD is advancing, with a current kidney function level at an approximate GFR of 16%, a reduction from a previous measurement of 19%. The patient has brother on dialysis; his brother recently began treatment due to similar underlying conditions. These factors contribute to the patient?s concern about future renal interventions. 10/15/24 The patient is a 69-year-old male presenting with hypertension, chronic kidney disease, and anemia. Hypertension has been a persistent issue, with recent blood pressure readings of 156/80 mmHg, despite multiple antihypertensive medications including valsartan and clonidine. Previous trials with amlodipine and hydralazine were discontinued due to adverse effects such as edema and pruritus. Chronic kidney disease is attributed to long-standing diabetes, with current kidney function at approximately 14%. Anemia is suspected to be multifactorial, potentially due to gastrointestinal blood loss and decreased erythropoietin production from renal impairment. A stool test and colonoscopy are planned to investigate potential gastrointestinal bleeding. The patient will receive erythropoietin injections to address anemia related to renal insufficiency. 12/31/24 Recently hospitalized for accelerated HTN Had UE weakness- possible TIA s/p Blood transfusion Accompanied by daughter 01/14/25 History of Present Illness - The patient is a 69-year-old male presenting with chronic kidney disease management. - Chronic Kidney Disease: Prefers conventional hemodialysis. - Hypertension: Blood pressure variable, recent readings 110/62 mmHg and 143/71 mmHg, dizziness noted. - Anemia: Receiving injections every two to four weeks. - Hyperkalemia: Potassium normalized to 4.8 mmol/L. - Hyperglycemia: Blood sugar improved to 174 mg/dL. [facility] Medical History (Updated 01/14/25 @ 11:29 by Tera Aguirre MD) CKD (chronic kidney disease) Diabetes type 2, uncontrolled Essential hypertension Hypertriglyceridemia Hyperlipidemia LDL goal <100 Type 2 diabetes mellitus with diabetic polyneuropathy Cirrhosis of liver GERD (gastroesophageal reflux disease) Tubular adenoma of colon Chronic idiopathic constipation Surgical History History of penile implant History of gastric surgery H/O esophagogastroduodenoscopy Hx of colonoscopy (~10/2014) Family History Father No problems noted. Mother Esophageal cancer Maternal Grandfather Prostate cancer Diabetes Maternal Grandmother CVD (cardiovascular disease) Daughter Tubular adenoma Social History Household Members: Spouse Alcohol intake: current Alcohol intake frequency: former alcohol drinker Patient Tobacco Use Status: Former Tobacco user Office Meds epoetin felipa-epbx 20,000 unit/mL injection solution Performing Provider: Tera Aguirre MD [facility] Administered by: Tera Aguirre MD on 01/14/25 11:24 Dose Route Admin Location Dispensed Lot Number Expiration Date [facility] [place] [employer] 20,000 unit subcut left arm 1 mL [id number] 06/20/26 8906-0432-02 [employer] Total Dispensed Waste 1 mL 0 % Results Reviewed Nephrology Results: Hgb, (14.0-18.0) 9.0 g/dl L 01/13/25 WBC, (4.8-10.8) 3.8 X10*3/uL L 01/13/25 Plt Count, (160-400) 151 X10*3/uL L 01/13/25 Sodium, (135-145) 132 mmol/L L 01/13/25 Potassium, (3.3-5.1) 4.8 mmol/L 01/13/25 Chloride, (96-108) 103 mmol/L 01/13/25 Carbon Dioxide, (22-29) 22 mmol/L 01/13/25 BUN, (9-16) 58 mg/dL H 01/13/25 Creatinine, (0.5-1.4) 5.37 mg/dL H* 01/13/25 Calcium, (8.4-10.2) 8.0 mg/dL L 01/13/25 Urine Protein, (Neg-Trace) >=1000 (4+) mg/dL H 10/03/24 Urine Creatinine 120.25 mg/dL 10/03/24 Renal US 09/28/23 Assessment & Plan Assessment & Plan (1) CKD (chronic kidney disease): Comment: Kidney biopsy on 12/18/2023 revealed nodular mesangial/diabetic glomerulosclerosis. Moderately active interstitial nephritis with eosinophils. Moderate chronic changes including global glomerulosclerosis 35%, tubular atrophy/interstitial fibrosis 30%. Vascular sclerosis moderate with focal hyalinosis. Code(s): N18.9 - Chronic kidney disease, unspecified Category: Medical Plan: yr old man with CKD in a setting of DM and HTN Diabetic nephropathy by biopsy No evidence of obstruction based on recent imaging Added Farxiga 5 mg daily ( dec 2023) EGFR is around 11 no indication for hemodialysis today Volume status acceptable Goal is to slow the progression of renal disease Maintain BP < 130/80 and A1c < 7% Avoid nephrotoxins including NSAIDS (2) BPH w urinary obs/LUTS: Code(s): N40.1 - Benign prostatic hyperplasia with lower urinary tract symptoms; N13.8 - Other obstructive and reflux uropathy Category: Medical Plan: Follow up with Urology (3) Essential hypertension: Code(s): I10 - Essential (primary) hypertension Category: Medical Plan: Blood pressure is well controlled with the current regimen No changes were made today. Stay on low-sodium (4) Type 2 diabetes mellitus with diabetic polyneuropathy: Code(s): E11.42 - Type 2 diabetes mellitus with diabetic polyneuropathy Category: Medical Plan: Blood pressure is better controlled Keep on current regimen (5) Anemia due to chronic kidney disease: Code(s): N18.9 - Chronic kidney disease, unspecified; D63.1 - Anemia in chronic kidney disease Category: Medical Plan: Administered Retacrit 60792 units subcutaneously and tolerated well Orders: Orders Basic Metabolic Panel 4 Weeks N18.5 - Chronic kidney disease, stage 5 Complete Blood Count Auto Diff 4 Weeks N18.5 - Chronic kidney disease, stage 5 AMB Epoetin Injection Practice Supplied Today N40.1 - Benign prostatic hyperplasia with lower urinary tract symptoms Coding Level of Care Code Est Pt Level 4 (34826) Diagnoses CKD (chronic kidney disease) N18.9 BPH w urinary obs/LUTS N40.1; N13.8 Essential hypertension I10 Type 2 diabetes mellitus with diabetic polyneuropathy E11.42 Anemia due to chronic kidney disease N18.9; D63.1
[2025-01-14 11:13] VITALS: BP 110/62; PULSE 75; O2SAT 97
--- OUTSIDE RECORDS SUMMARY | 2025-01-14 14:18 | XMS_ITS | Clinical Summary ---
Author Organization [facility] Address [address] [place] [address] Care Team Providers Care Operations Officer Trust Department Name Role Phone Anel Padgett [facility] Primary Care Provider [phone] Source Comments PLEASE NOTE, if this patient [...] injectionIndicatio ns:Diabetes mellitus type 2 in nonobese ([facility]) Inject w/meals 70-100 NO u 101- 140 2 U, 141-180 3 U, 181-220 4 U, 221-260 6 U, 261-300 8 U, 301-350 10 U,351-400 12 ,>400 callMD 10 mL 5 7 Active insulin needles 31 gauge x 1/4 Indications:Di abetes mellitus type 2 in nonobese ([facility] & [facility]) DX.E11.65 insulin injection 4 times a day 100 Each 7 Active lancetsIndications :Diabetes mellitus type 2 in nonobese ([facility]) DX E11.65 . Blood sugar check 4 times a day 100 Each [address] Active [address] tabletIndications: Diabetes mellitus type 2 in nonobese ([facility]) Take 1 Tab by mouth once daily 8 Active insulin glargine (LANTUS) 100 unit/mL injectionIndicatio ns:Diabetes mellitus type 2 in nonobese ([facility]) Inject 60 Units into the skin once daily 10 mL 5 8 Active linagliptin (TRADJENTA) 5 mg tabIndications:Ava betes mellitus type 2 in nonobese ([facility]) Take 1 Tab by mouth once daily 30 Tab 3 8 Active FREESTYLE LITE STRIPS stripsIndications: Diabetes mellitus type 2 in nonobese ([facility]) USE TO TEST BLOOD SUGAR THREE [...] mcg/actuation nasal sprayIndications:N [place] congestion Place 1 [place] in both nostrils once daily for 14 [...] 01/20/2017 Overview (01/20/2017): Colonoscopy done 11/11/14 at [facility] - small hiatus hernia with no evidence of reflux esophagitis , normal colonoscopy Endoscopy also done - DX superficial gastritis Diverticulitis of large intestine 04/05/2015 Overview (04/05/2015): Seen at [facility] 03/25/2015 for abdominal pain for 3 days. Treated with Levaquin,and flagyl . CT Scan : Wall thickening with Inflammatory changes surrounding junction of descending/sigmoid colon. Pt has history of Diverticulitis S/P Partial colon Resection 2-3 years ago. History of Negative Colonoscopy early 2014 at [facility] Facet arthropathy, lumbar 02/03/2015 Overview (02/03/2015): Sees spine. X-ray 12/05/2014 L4-L5 facet arthropathy. Undergoing PT. X- Ray hip normal H/O hypogonadism 01/19/2015 Overview (01/19/2015): Sees Urologist S/P TURP 02/25/2014 Overview (07/01/2017): Done 10/21/2013. Sees Urologist Hood Elizondo 05/25/17 - No show to Urology F/U DM type 2 (diabetes mellitus, type 2) ([facility]) 07/28/2013 Overview (09/10/2013): Pt sees [facility]o at [facility] Hyperlipidemia 07/28/2013 GERD (gastroesophageal reflux disease) 4 DM neuropathy, painful ([facility]) 4 Diabetic eye exam ([facility]) 06/27/2013 Overview (06/27/2013): Pt has [...] Description 02/11/2025 1:00 PM EDT Office Visit [facility] [address] [place] [phone] Anel Padgett FNP [address] [place] [address] Health Maintenance Due Date Last Done Comments [...] 11/03/2024 05/06/2024, 07/22, 02/27/2017, Additional history exists [id number] ( season) 2024 01/23/2024, 01/31/2022, 04/02/2021, Additional [...] complication, with long-term current use of insulin ([facility]) Hypertension, unspecified type LIPID PANEL Routine 05/06/2024 1:56 PM EST Encounter to establish care Controlled type 2 diabetes mellitus without complication, with long-term current use of insulin ([facility]) Hypertension, unspecified type MICROALBUMIN/CREATININ E RATIO, URINE, RANDOM Routine 05/06/2024 1:56 PM EST Encounter to establish care Controlled type 2 diabetes mellitus without complication, with long-term current use of insulin ([facility]) HGBA1C W/MPG Routine 05/06/2024 1:56 PM EST Encounter to establish care Controlled type 2 diabetes mellitus without complication, with long-term current use of insulin ([facility]) HEPATITIS A,B,C PANEL Routine 02/27/2017 11:10 AM EST Multiple joint pain from Last 3 Months or Most Recently Relevant to Health Maintenance Results * (ABNORMAL) HGBA1C W/MPG (05/06/2024 1:56 PM EST) HEMOGLOBIN A1C 7.4(H) <5.7 % of total Hgb [facility] Comment: For someone without known diabetes, a [...] children. MEAN PLASMA GLUCOSE 186 mg/dL (calc) [facility] Blood Blood / Unknown 05/06/2024 1 :56 PM EST 05/06/2024 1:56 PM EST Narrative [facility] - 05/08/2024 5:49 PM EST FASTING:NO Mary Osborne PA-C LAB - BLOOD DRAW Edited Res ult - Final [facility] [address] [address], [facility] [address] [place] [address] * (ABNORMAL) MICROALBUMIN/CREATININE RATIO, URINE, RANDOM (05/06/2024 1:56 PM EST) CREATININE, RANDOM URINE 37 20 - 320 mg/dL [facility] MICROALBUMIN 147.9 mg/dL [facility] Comment: Verified by repeat analysis. Reference Range Not established MICROALBUMIN/CREA TININE RATIO, RANDOM URINE 3,997(H) <30 mg/g creat [facility] Comment: The ADA defines abnormalities in albumin [...] PM EST 05/06/2024 1:56 PM EST Narrative [facility] - 05/08/2024 5:49 PM EST FASTING:NO Mary Osborne PA-C LAB URINE AMBULATORY Final Result [facility] [address] [place] [id number], [facility] [address] [phone] * (ABNORMAL) LIPID PANEL (05/06/2024 1:56 PM EST) CHOLESTEROL, TOTAL 122 <200 mg/dL [facility] HDL CHOLESTEROL 41 > OR = 40 mg/dL [facility] TRIGLYCERIDES 174(H) <150 mg/dL [facility] LDL-CHOLESTEROL 56 99 mg/dL (calc) [facility] Comment: Reference range: <100 Desirable range <100 mg/dL for primary prevention; <70 mg/dL for patients with CHD or diabetic patients with > or = 2 CHD risk factors. LDL-C is now calculated using the Hola-Jorge calculation, which is a validated novel method providing better accuracy than the Friedewald equation in the estimation of LDL-C. Hola PHAN et al. KAUSHIK. 2013;310(19): 5036-3211 (http://education.Iotum/faq/DGP827) CHOL/HDLC RATIO 3.0 <5.0 (calc) [facility] NON-HDL CHOLESTEROL 81 <130 mg/dL (calc) [facility] Comment: For patients with diabetes plus 1 major ASCVD risk factor, treating to a non-HDL-C goal of <100 mg/dL (LDL-C of <70 mg/dL) is considered a therapeutic option. Blood Blood / Unknown 05/06/2024 1 :56 PM EST 05/06/2024 1:56 PM EST Narrative [facility] - 05/08/2024 5:49 PM EST FASTING:NO us Mary Osborne PA-C LAB - BLOOD DRAW Final Resu lt [facility] [address] [address], [facility] [address] [place] [address] * (ABNORMAL) COMPREHENSIVE METABOLIC PANEL (05/06/2024 1:56 PM EST) GLUCOSE 329(H) 65 - 139 mg/dL [facility] Comment: Non-fasting reference interval UREA NITROGEN (BUN) 39(H) 7 - 25 mg/dL [facility] CREATININE (blood) 2.99(H) 0.70 - 1.35 mg/dL [facility] EGFR 22(L) > OR = 60 mL/min/1. 73m2 [facility] BUN/CREATININE RATIO 13 6 - 22 (calc) [facility] SODIUM 133(L) 135 - 146 mmol/L [facility] POTASSIUM 4.4 3.5 - 5.3 mmol/L [facility] CHLORIDE 101 98 - 110 mmol/L [facility] CARBON DIOXIDE 22 20 - 32 mmol/L [facility] CALCIUM 8.4(L) 8.6 - 10.3 mg/dL [facility] PROTEIN, TOTAL 5.8(L) 6.1 - 8.1 g/dL [facility] ALBUMIN 3.2(L) 3.6 - 5.1 g/dL [facility] GLOBULIN 2.6 1.9 - 3.7 g/dL (calc) [facility] ALBUMIN/GLOBULI N RATIO 1.2 1.0 - 2.5 (calc) [facility] BILIRUBIN, TOTAL 0.3 0.2 - 1.2 mg/dL [facility] ALKALINE PHOSPHATASE 181(H) 35 - 144 U/L [facility] AST 25 10 - 35 U/L [facility] ALT 26 9 - 46 U/L [facility] Blood Blood / Unknown 05/06/2024 1 :56 PM EST 05/06/2024 1:56 PM EST Narrative [facility] - 05/08/2024 5:49 PM EST FASTING:NO Mary Osborne PA-C LAB - BLOOD DRAW Edited Res ult - Final [facility] [address] [address], [facility] [address] [place] [address] * HEPATITIS A,B,C PANEL (02/27/2017 11:10 AM EST) HEPATITIS B SURFACE ANTIBODY NEGATIVE NEGATIVE [facility] HEPATITIS B SURFACE ANTIGEN NEGATIVE NEGATIVE [facility] Comment: Over the counter supplements containing high doses of biotin may interfere with this assay. If interference is suspected, patients shoud be retested after refraining from biotin supplements for 72 hours. HEPATITIS C [facility] NEGATIVE NEGATIVE [facility] HEPATITIS B CORE ANTIBODY NEGATIVE NEGATIVE [facility] HEPATITIS A ANTIBODY TOTAL NEGATIVE NEGATIVE [facility] Comment: Over the counter supplements containing high doses of biotin may interfere with this assay. If interference is suspected, patients shoud be retested after refraining from biotin supplements for 72 hours. Blood specimen (specimen) Blood / Unknown 02/27/2017 11:10 AM EST 02/27/2017 11:33 AM EST Narrative [facility] - 02/27/2017 4:19 PM EST [employer] [address] [place] [id number] [place] [id number] ORD# [id number] Gregor GRIFFITH LAB - BLOOD DRAW Edited Result - Final Performing Organization Address City/[facility]/ZIP Co de Phone Number [facility] [address] [place] [address], from Last 3 Months or Most Recently Relevant to Health Maintenance Insurance [facility] [employer] [facility] [employer] [facility] Care Teams Operations Officer Trust Department Relationship Specialty Start Date End Date Anel Padgett FNP [address] [place] [address] PCP - General Internal Medicine 09/05/21
--- OUTSIDE RECORDS SUMMARY | 2025-01-14 14:18 | XMS_ITS | Clinical Summary ---
Author Organization [address] [facility] Address [address] [place] [address] Phone Care Team Providers Care Pearl Technician Name Role Phone Rashid Steele Primary Care Provider [phone] Allergies Active Allergy Reactions Criticality Noted Date [...] CVA (cerebral vascular accident) (CMS/HCC V24, C VT/HCC V28) 12/03/2024 Spinal stenosis of cervical region with radiculo juan 08/15/2024 Alcoholic liver disease ([facility]/HCC V24) 08/08/2024 Overview (08/08/2024): Apr 20, 2008 [...] By: RASHID STEELE Comment: GI is at [facility]; , FAX [phone] Dec 01, 2020 Entered By: RASHID STEELE Comment: Patient. [facility] of ABD that GI at [place] Desires Jul 22, 2021 Entered By: RASHID STEELE Comment: Next Hepatology appt., w/ Imaging at [place] in Mid - AUG 12 Oct 14, 2021 Entered By: RASHID STEELE Comment: Per Pt., Liver Disease Stable; Not Progressed Oct 14, 2021 Entered By: RASHID STEELE Comment: Chooses Private Care for This Oct 28, 2021 Entered By: RASHID STEELE Comment: LFT's WNL OCTOBER 12 May 31, 2022 Entered By: RASHID STEELE Comment: Still Sees GI/Hepatology at [facility]; Next Appt JUN 15 May 31, 2022 Entered By: RASHID STEELE Comment: US pending at [place] JUN 15 Dec 01, 2022 Entered By: [...] nonproliferative 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 edema, bilateral ([facility] V24, [facility] V28) 07/25/2024 Type 2 diabetes mellitus wit h diabetic peripheral angiopathy without gangrene ([facility] V24, [facility] V28) 07/25/2024 Tinea unguium 07/25/2024 Sensorineural hearing [...] RASHID STEELE Comment: US, Aorta DEC 13 [place]: no AAA Jul 09, 2023 Entered By: RASHID STEELE Comment: hypertension Essential (primary) hypertension 07/25/2024 Postoperative infection 05/19/2024 Trigger finger of right thumb 05/19/2024 Encounters Date Type Department Care Team Description 12/08/2024 Plan of Care Documentation [facility] [address] [place] [phone] 12/03/2024 5:42 PM EDT - 12/13/2024 11:45 AM EDT Hospital Encounter [facility] [address] [place] [phone] Bre Garcia DO CVA (cerebral vascular accident) ([facility] V24, [facility] V28) [I63.9] (Primary Dx) Discharge Disposition: Short [...] Medical History Medical History Date Comments Diabetes ([facility] V24, [facility] V28) Arthritis High blood pressure Social History [...] resultswithin the time period is included. Pathologist [facility] Adenovirus Detection by PCR Not Detected Not Detected LAB MICROBIOLOGY METHOD 12/13/2024 12:22 PM EDT [facility] Influenza A PCR Not Detected Not Detected LAB MICROBIOLOGY METHOD 12/13/2024 12:22 PM EDT [facility] Influenza B PCR Not Detected Not Detected LAB MICROBIOLOGY METHOD 12/13/2024 12:22 PM EDT [facility] Coronavirus 229E Not Detected Not Detected LAB MICROBIOLOGY METHOD 12/13/2024 12:22 PM EDT [facility] Coronavirus HKU1 Not Detected Not Detected LAB MICROBIOLOGY METHOD 12/13/2024 12:22 PM EDT [facility] Coronavirus OC43 Not Detected Not Detected LAB MICROBIOLOGY METHOD 12/13/2024 12:22 PM EDT [facility] Coronavirus NL63 Not Detected Not Detected LAB MICROBIOLOGY METHOD 12/13/2024 12:22 PM EDT [facility] Parainfluenza Virus 1 Not Detected Not Detected LAB MICROBIOLOGY METHOD 12/13/2024 12:22 PM EDT [facility] Parainfluenza Virus 2 Not Detected Not Detected LAB MICROBIOLOGY METHOD 12/13/2024 12:22 PM EDT [facility] Parainfluenza Virus 3 Not Detected Not Detected LAB MICROBIOLOGY METHOD 12/13/2024 12:22 PM EDT [facility] Parainfluenza Virus 4 Not Detected Not Detected LAB MICROBIOLOGY METHOD 12/13/2024 12:22 PM EDT [facility] RSV PCR Not Detected Not Detected LAB MICROBIOLOGY METHOD 12/13/2024 12:22 PM EDT [facility] Human Metapneumovirus A and B Not Detected Not Detected LAB MICROBIOLOGY METHOD 12/13/2024 12:22 PM EDT [facility] Rhinovirus/Entero virus Not Detected Not Detected LAB MICROBIOLOGY METHOD 12/13/2024 12:22 PM EDT [facility] Bordetella pertussis Not Detected Not Detected LAB MICROBIOLOGY METHOD 12/13/2024 12:22 PM EDT [facility] Bordetella parapertussis Not Detected Not Detected LAB MICROBIOLOGY METHOD 12/13/2024 12:22 PM EDT [facility] Mycoplasma pneumo by PCR Not Detected Not Detected LAB MICROBIOLOGY METHOD 12/13/2024 12:22 PM EDT [facility] Chlamydia pneumoniae Not Detected Not Detected LAB MICROBIOLOGY METHOD 12/13/2024 12:22 PM EDT [facility] SARS COV-2 Not Detected Not Detected LAB MICROBIOLOGY METHOD 12/13/2024 12:22 PM EDT [facility] Swab Both anterior nares / Unknown Non-blood Collection / Unknown 12/13/2024 10:28 AM EDT 12/13/2024 11:25 AM EDT Narrative [facility] - 12/13/2024 12:22 PM EDT Testing was performed using the [employer] Respiratory Pathogen PCR Assay. All results must [...] MICROBIOLOGY - GENERA L ORDERABLES Final Result [facility] [address] [place] [address], * (ABNORMAL) Complete blood count (12/13/2024 10:28 AM EDT) Only the most recent of4 resultswithin the time period is included. WBC 15.0(H) 4.8 - 10.8 K/mcL LAB HEMETOLOGY METHOD 12/13/2024 11:31 AM EDT [facility] RBC 2.60(L) 4.50 - 5.50 M/mcL LAB HEMETOLOGY METHOD 12/13/2024 11:31 AM EDT [facility] Hemoglobin 8.2(L) 13.5 - 17.5 g/dL LAB HEMETOLOGY METHOD 12/13/2024 11:31 AM [facility] Hematocrit 25.0(L) 42.0 - 54.0 % LAB HEMETOLOGY METHOD 12/13/2024 11:31 AM EDT [facility] MCV 96.5 79.0 - 98.0 FL LAB HEMETOLOGY METHOD 12/13/2024 11:31 AM EDT [facility] MCH 31.7 27.0 - 32.0 pcg LAB HEMETOLOGY METHOD 12/13/2024 11:31 AM EDT [facility] MCHC 32.8 32.0 - 37.0 g/dL LAB HEMETOLOGY METHOD 12/13/2024 11:31 AM EDT [facility] RDW 11.7 11.0 - 15.0 % LAB HEMETOLOGY METHOD 12/13/2024 11:31 AM EDT [facility] Platelets 311 130 - 400 K/mcL LAB HEMETOLOGY [facility] MPV 10.7 7.0 - 11.0 FL LAB HEMETOLOGY METHOD 12/13/2024 11:31 AM EDT [facility] NRBC 0.0 <1.0 % LAB HEMETOLOGY METHOD 12/13/2024 11:31 AM EDT [facility] NRBC Absolute 0.00 <0.10 K/mcL LAB HEMETOLOGY METHOD 12/13/2024 11:31 AM EDT [facility] Blood Venous blood specimen / Unknown Venipuncture / Unknown 12/13/2024 10:28 AM EDT 12/13/2024 11:25 AM EDT Shira Holliday NP LAB BLOOD ORDERABLES Final Result [facility] [address] [place] [address], [place] [phone] * Type and screen (12/13/2024 10:28 AM EDT) ABO Group O 12/13/2024 1:07 PM EDT [facility] Rh Type Positive 12/13/2024 1:07 PM EDT [facility] Antibody Screen Negative 12/13/2024 1:07 PM EDT [facility] Blood Venous blood specimen / Unknown Venipuncture / Unknown 12/13/2024 10:28 AM EDT 12/13/2024 11:25 AM EDT Shira Holliday NP LAB BLOOD BANK TEST ORDERABLES Final Result [facility] [address] [place] [address], [place] [phone] * (ABNORMAL) Magnesium (12/13/2024 10:28 AM EDT) Only the most recent of2 resultswithin the time period is included. Magnesium 1.7(L) 1.9 - 2.6 mg/dL LAB CHEMISTRY METHOD 12/13/2024 11:46 AM [facility] Blood Venous blood specimen / Unknown Venipuncture / Unknown 12/13/2024 10:28 AM EDT 12/13/2024 11:25 AM EDT Shira Holliday NP LAB BLOOD ORDERABLES Final Result [facility] [address] [place] [address], [place] [phone] * (ABNORMAL) Basic metabolic panel (12/13/2024 10:28 AM EDT) Only the most recent of2 resultswithin the time period is included. Sodium 134 133 - 145 mmol/L LAB CHEMISTRY METHOD 12/13/2024 11:51 AM [facility] Potassium 4.8 3.5 - 5.5 mmol/L LAB CHEMISTRY METHOD 12/13/2024 11:51 AM [facility] Chloride 105 96 - 110 mmol/L LAB CHEMISTRY METHOD 12/13/2024 11:51 AM [facility] CO2 19(L) 21 - 32 mmol/L LAB CHEMISTRY METHOD 12/13/2024 11:51 AM [facility] Anion Gap 10 3 - 11 LAB CHEMISTRY METHOD 12/13/2024 11:51 AM [facility] Glucose 141(H) 70 - 100 mg/dL LAB CHEMISTRY METHOD 12/13/2024 11:51 AM [facility] BUN 80(H) 5 - 25 mg/dL LAB CHEMISTRY METHOD 12/13/2024 11:51 AM [facility] Creatinine 5.52(H) 0.70 - 1.30 mg/dL LAB CHEMISTRY METHOD 12/13/2024 11:51 AM [facility] eGFR 11(L) >=60 mL/min/1. 73m2 LAB CHEMISTRY METHOD 12/13/2024 11:51 AM EDT [facility] Comment:Calculation based on the Chronic Kidney Disease Epidemiology Collaboration (CKD-EPI) equation refit without adjustment for race. BUN/Creatinine Ratio 14.5 LAB CHEMISTRY METHOD 12/13/2024 11:51 AM EDT [facility] Calcium 8.3(L) 8.5 - 10.5 mg/dL LAB CHEMISTRY METHOD 12/13/2024 11:51 AM EDT [facility] Blood Venous blood specimen / Unknown Venipuncture / Unknown 12/13/2024 10:28 AM EDT 12/13/2024 11:25 AM EDT Shira Holliday NP LAB BLOOD ORDERABLES Final Result Performing Organization Address City/[facility]/ZIP Co de Phone Number [facility] [address] [place] [address], [place] [phone] * (ABNORMAL) POCT Glucose, blood (12/13/2024 10:01 AM EDT) Only the most recent of40 resultswithin the time period is included. [facility] Glucose POCT 157(H) 70 - 100 mg/dL 12/13/2024 10:02 AM EDT [facility] Blood Capillary blood specimen / Unknown 12/13/2024 10:01 AM EDT 12/13/2024 10:03 AM EDT Bre Garcia DO LAB POINT OF CARE TEST DOCKED DEVICE UNSOLICITED RESULTS Final Result [facility] [address] [place] [address], [place] [phone] * CT Head Stroke wo Contrast (12/13/2024 [...] Signed Date: 12/13/2024 08:46 ET Workstation ID: [id number] Transcribed By: Self Edit Transcribed Date: 12/13/2024 [...] Signed Date: 12/13/2024 08:46 ET Workstation ID: [id number] Transcribed By: Self Edit Transcribed Date: 12/13/2024 08:43 ET Shira Holliday NP IMG CT PROCEDURES Fi nal Result * ECG 12 lead (12/13/2024 7:53 AM EDT) Pathologist [facility] Ventricular Rate ECG 103 BPM GEMUSE Atrial Rate 103 BPM GEMUSE P-R Interval 176 ms GEMUSE QRS Duration 82 ms GEMUSE Q-T Interval 310 ms GEMUSE QTc 406 ms GEMUSE P Wave Opal 48 degrees GEMUSE R Opal 3 degrees GEMUSE T Opal 73 degrees GEMUSE ECG Interpretation Sinus tachycardia [...] resultswithin the time period is included. Pathologist [facility] Sodium 134 133 - 145 mmol/L LAB CHEMISTRY METHOD 12/12/2024 5:48 AM EDT [facility] Potassium 5.3 3.5 - 5.5 mmol/L LAB CHEMISTRY METHOD 12/12/2024 5:48 AM EDT [facility] Chloride 105 96 - 110 mmol/L LAB CHEMISTRY METHOD 12/12/2024 5:48 AM [facility] CO2 21 21 - 32 mmol/L LAB CHEMISTRY METHOD 12/12/2024 5:48 AM [facility] Anion Gap 8 3 - 11 LAB CHEMISTRY METHOD 12/12/2024 5:48 AM [facility] Glucose 261(H) 70 - 100 mg/dL LAB CHEMISTRY METHOD 12/12/2024 5:48 AM [facility] BUN 84(H) 5 - 25 mg/dL LAB CHEMISTRY METHOD 12/12/2024 5:48 AM [facility] Creatinine 5.65(H) 0.70 - 1.30 mg/dL LAB CHEMISTRY METHOD 12/12/2024 5:48 AM [facility] eGFR 10(L) >=60 mL/min/1. 73m2 LAB CHEMISTRY METHOD 12/12/2024 5:48 AM [facility] Comment:Calculation based on the Chronic Kidney Disease Epidemiology Collaboration (CKD-EPI) equation refit without adjustment for race. BUN/Creatinine Ratio 14.9 LAB CHEMISTRY METHOD 12/12/2024 5:48 AM [facility] Calcium 7.9(L) 8.5 - 10.5 mg/dL LAB CHEMISTRY METHOD 12/12/2024 5:48 AM [facility] AST (SGOT) 19 10 - 42 unit/L LAB CHEMISTRY METHOD 12/12/2024 5:48 AM [facility] ALT (SGPT) 35 10 - 60 unit/L LAB CHEMISTRY METHOD 12/12/2024 5:48 AM [facility] Alkaline Phosphatase 157(H) 42 - 121 unit/L LAB CHEMISTRY METHOD 12/12/2024 5:48 AM [facility] Total Protein 5.0(L) 6.0 - 8.0 g/dL LAB CHEMISTRY METHOD 12/12/2024 5:48 AM [facility] Albumin 2.0(L) 3.2 - 5.0 g/dL LAB CHEMISTRY METHOD 12/12/2024 5:48 AM EDT [facility] Total Bilirubin 0.3 0.0 - 1.4 mg/dL LAB CHEMISTRY METHOD 12/12/2024 5:48 AM EDT [facility] Blood Venous blood specimen / Unknown Venipuncture / Unknown 12/12/2024 5:04 AM EDT 12/12/2024 5:20 AM EDT Shelly SUBRAMANIAN LAB BLOOD ORDERABLES Final R esult [facility] [address] [place] [address], [place] [phone] * Iron (12/10/2024 5:19 AM EDT) Iron 64 50 - 160 mcg/dL LAB CHEMISTRY METHOD 12/10/2024 2:35 PM EDT [facility] Blood Venous blood specimen / Unknown Venipuncture / Unknown 12/10/2024 5:19 AM EDT 12/10/2024 6:51 AM EDT Shelly SUBRAMANIAN LAB BLOOD ORDERABLES Final R esult [facility] [address] [place] [address], [place] [phone] * Ferritin (12/10/2024 5:19 AM EDT) Ferritin 328 26 - 388 ng/mL LAB CHEMISTRY METHOD 12/10/2024 2:35 PM EDT [facility] Blood Venous blood specimen / Unknown Venipuncture / Unknown 12/10/2024 5:19 AM EDT 12/10/2024 6:51 AM EDT Shelly SUBRAMANIAN LAB BLOOD ORDERABLES Final R esult [facility] [address] [place] [address], * XR Chest 2 Views (12/09/2024 2:20 PM EDT) Anatomical Region Laterality Modality Body Radiographic Adelaide ging 12/09/2024 2:31 PM EDT Impressions 12/09/2024 2:32 PM EDT Impression: Mild bibasilar subsegmental atelectasis or scar. Telerad MORIS ([id number]) -------- FINAL REPORT -------- Dictated By: Emily Hernandez Dictated Date: 12/09/2024 14:31 ET Assigned Physician: Emily Hernandez Reviewed and Electronically Signed By: Emily Hernandez Signed Date: 12/09/2024 14:32 ET Workstation ID: [id number] Transcribed By: Self Edit Transcribed Date: 12/09/2024 [...] bibasilar subsegmental atelectasis or scar. Telerad MORIS ([id number]) -------- FINAL REPORT -------- Dictated By: Emily Hernandez Dictated Date: 12/09/2024 14:31 ET Assigned Physician: Emily Hernandez Reviewed and Electronically Signed By: Emily Hernandez Signed Date: 12/09/2024 14:32 ET Workstation ID: [id number] Transcribed By: Self Edit Transcribed Date: 12/09/2024 14:31 ET us Shelly SUBRAMANIAN IMG XR PROCEDURES Final Resu lt * (ABNORMAL) Urinalysis with reflex microscopic and culture (12/09/2024 1:59 PM EDT) Specific [place] Urine 1.015 1.003 - 1.030 LAB URINALYSIS - AUTOMATED METHOD 12/09/2024 2:31 PM [facility] pH, Urine 6.5 5.0 - 8.0 pH LAB URINALYSIS - AUTOMATED METHOD 12/09/2024 2:31 PM [facility] Leukocytes, Urine Negative Negative LAB URINALYSIS - AUTOMATED METHOD 12/09/2024 2:31 PM [facility] Nitrite, Urine Negative Negative LAB URINALYSIS - AUTOMATED METHOD 12/09/2024 2:31 PM [facility] Protein, Urine 300(A) <=Trace mg/dL LAB URINALYSIS - AUTOMATED METHOD 12/09/2024 2:31 PM [facility] Glucose, Urine >=1000(A) Negative mg/dL LAB URINALYSIS - AUTOMATED METHOD 12/09/2024 2:31 PM [facility] Ketones, Urine Negative Negative mg/dL LAB URINALYSIS - AUTOMATED METHOD 12/09/2024 2:31 PM [facility] Urobilinogen , Urine 1.0 0.2 - 1.0 mg/dL LAB URINALYSIS - AUTOMATED METHOD 12/09/2024 2:31 PM EDT [facility] Bilirubin, Urine Negative Negative LAB URINALYSIS - AUTOMATED METHOD 12/09/2024 2:31 PM EDT [facility] Blood, Urine Negative Negative LAB URINALYSIS - AUTOMATED METHOD 12/09/2024 2:31 PM EDT [facility] RBC, Urine 5.4(H) 0 - 4 /HPF LAB URINALYSIS - AUTOMATED METHOD 12/09/2024 2:31 PM EDT [facility] WBC, Urine 1.3 0 - 4 /HPF LAB URINALYSIS - AUTOMATED METHOD 12/09/2024 2:31 PM EDT [facility] Squamous Epithelial, Urine 17 0 - 60 /LPF LAB URINALYSIS - AUTOMATED METHOD 12/[facility]2024 [facility] Bacteria, Urine Negative Negative /HPF LAB URINALYSIS - AUTOMATED METHOD 12/09/2024 2:31 PM T [facility] Hyaline Casts, Urine 1.2 0 - 3 /LPF LAB URINALYSIS - AUTOMATED METHOD 12/09/2024 2:31 PM T [facility] Urine Urine specimen obtained by clean catch procedure / Unknown Non-blood Collection / Unknown 12/09/2024 1:59 PM EDT 12/09/2024 2:24 PM EDT us Shelly SUBRAMANIAN LAB URINE ORDERABLES Final R esult [facility] [address] [place] [address], * Can urine culture tube (12/09/2024 1:59 PM EDT) Extra Tube Hold for add-ons. 12/09/2024 4:01 PM EDT [facility] Comment:Auto resulted. Urine Urine specimen obtained by clean catch procedure / Unknown Non-blood Collection / Unknown 12/09/2024 1:59 PM EDT 12/09/2024 2:24 PM EDT Shelly Alexandre PA LAB URINE ORDERABLES Final R esult Performing Organization Address [facility]/ZIP Co de Phone Number [facility] [address] [place] [address], * (ABNORMAL) Phosphorus (12/09/2024 5:30 AM EDT) Phosphorus 4.7(H) 2.5 - 4.5 mg/dL LAB CHEMISTRY METHOD 12/09/2024 7:09 AM EDT [facility] Blood Venous blood specimen / Unknown Venipuncture / Unknown 12/09/2024 5:30 AM EDT 12/09/2024 6:05 AM EDT Shira Holliday NP LAB BLOOD ORDERABLES Final Result Performing Organization Address [facility] de Phone Number [facility] [address] [place] [address], * (ABNORMAL) CBC auto differential (12/04/2024 6:05 AM EDT) WBC 4.6(L) 4.8 - 10.8 K/[facility] LAB HEMETOLOGY METHOD 12/04/2024 6:57 AM EDT [facility] RBC 2.40(L) 4.50 - 5.50 M/[facility] LAB HEMETOLOGY METHOD 12/04/2024 6:57 AM EDT [facility] Hemoglobin 7.6(L) 13.5 - 17.5 g/dL LAB HEMETOLOGY METHOD 12/04/2024 6:57 AM EDT [facility] Hematocrit 23.5(L) 42.0 - 54.0 % LAB HEMETOLOGY METHOD 12/04/2024 6:57 AM T [facility] MCV 96.7 79.0 - 98.0 FL LAB HEMETOLOGY METHOD 12/04/2024 6:57 AM [facility] MCH 31.3 27.0 - 32.0 pcg LAB HEMETOLOGY METHOD 12/04/2024 6:57 AM [facility] MCHC 32.3 32.0 - 37.0 g/dL LAB HEMETOLOGY METHOD 12/04/2024 6:57 AM [facility] RDW 12.2 11.0 - 15.0 % LAB HEMETOLOGY METHOD 12/04/2024 6:57 AM [facility] Platelets 180 130 - 400 K/mcL LAB HEMETOLOGY METHOD 12/04/2024 6:57 AM [facility] MPV 10.5 7.0 - 11.0 FL LAB HEMETOLOGY METHOD 12/04/2024 6:57 AM [facility] NRBC 0.0 <1.0 % LAB HEMETOLOGY METHOD 12/04/2024 6:57 AM [facility] NRBC Absolute 0.00 <0.10 K/mcL LAB HEMETOLOGY METHOD 12/04/2024 6:57 AM [facility] Neutrophils Relative 51.8 % LAB HEMETOLOGY METHOD 12/04/2024 6:57 AM [facility] Lymphocytes Relative 21.4 % LAB HEMETOLOGY METHOD 12/04/2024 6:57 AM [facility] Monocytes Relative 16.8 % LAB HEMETOLOGY METHOD 12/04/2024 6:57 AM [facility] Eosinophils Relative 8.9 % LAB HEMETOLOGY METHOD 12/04/2024 6:57 AM [facility] Basophils Relative 0.4 % LAB HEMETOLOGY METHOD 12/04/2024 6:57 AM EDT [facility] Immature Granulocytes Relative 0.7 % LAB HEMETOLOGY METHOD 12/04/2024 6:57 AM EDT [facility] Neutrophils Absolute 2.38 1.50 - 7.00 K/mcL LAB HEMETOLOGY METHOD 12/04/2024 6:57 AM EDT [facility] Lymphocytes Absolute 0.98(L) 1.00 - 5.00 K/mcL LAB HEMETOLOGY METHOD 12/04/2024 6:57 AM EDT [facility] Monocytes Absolute 0.77 0.20 - 1.00 K/mcL LAB HEMETOLOGY METHOD 12/04/2024 6:57 AM EDT [facility] Eosinophils Absolute 0.41 0.00 - 0.50 K/mcL LAB HEMETOLOGY METHOD 12/04/2024 6:57 AM EDT [facility] Basophils Absolute 0.02 0.00 - 0.20 K/mcL LAB HEMETOLOGY METHOD 12/04/2024 6:57 AM EDT [facility] Immature Granulocytes Absolute 0.03 0.00 - 0.03 K/mcL LAB HEMETOLOGY METHOD 12/04/2024 6:57 AM EDT [facility] Blood Venous blood specimen / Unknown Venipuncture / Unknown 12/04/2024 6:05 AM EDT 12/04/2024 6:32 AM EDT us [place] SUBRAMANIAN LAB BLOOD ORDERABLES Final Re sult [facility] [address] [place] [address], * Prothrombin time with INR (12/04/2024 6:05 AM EDT) Protime 11.7 10.6 - 13.9 sec LAB COAGULATION METHOD 12/04/2024 6:56 AM EDT [facility] INR 0.9 LAB COAGULATION METHOD 12/04/2024 6:56 AM EDT [facility] Blood Venous blood specimen / Unknown Venipuncture / Unknown 12/04/2024 6:05 AM EDT 12/04/2024 6:31 AM EDT us [place] SUBR[facility] LAB BLOOD ORDERABLES Final Re sult [facility] ([facility]) [facility] [address] [place] [address], from Last 3 Months Insurance [facility] [employer] Member Subscriber Plan / Payer (Ef fective 2021-Present) Name:Luisito Sam Relation to Subscriber:Self Name:Luisito Sam Payer ID:[id number] Group ID:[id number] Type:Not on file Address: [facility] [address] [phone] [facility] Advance Directives Documents on File Type Date Recorded 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 Care Teams Pearl Technician Relationship Specialty Start Date End Date Rashid Steele PA [address] [place] [phone] PCP - General Internal Medicine 08/12/24
--- OUTSIDE RECORDS SUMMARY | 2025-01-14 14:18 | XMS_ITS | Patient Health Record ---
Author Organization [facility] [place] [address] Care Team Providers Care Special Service Representative Name Role Phone Gregor Ruiz Primary Care Provider Unavailabl e Clinical, Operations Unavailable Unavailable Kaiden Bautista Unavailable [phone] BryantArielle Unavailable [phone] Allergies Allergen (clinical drug ingredient) Drug/Non Drug [...] COVID-19 Vaccine IM Unknown 04/02/2021 Administ ered Proficient COVID-19 Vaccine IM Unknown 06/29/2020 Administered PfizerPinyon TechnologiesBioNTech COVID-19 Vaccine IM Unknown 07/20/2020 Administered Pneumococcal Vac (Pneumovax 23) SDV / PFS, IM Unknown 07/22/2021 Administered Problems Problem Type SNOMED Code ICD Code Onset Dates Problem Status W/U Status Risk Notes Problem Nicotine dependence (99697763) Personal history of nicotine dependence (Z87.891) Active confirmed Problem Tinea unguium (094825717) Tinea unguium (B35.1) Active confirmed Problem Overweight (001406234) Overweight (E66.3) Active confirmed Problem Tachycardia (2469548) Tachycardia, unspecified (R00.0) Active confirmed Problem Abdominal pain (finding) (45839223) Abdominal pain, unspecified site (R10.9) Active confirmed Problem Acquired trigger finger (3088843) Trigger thumb, left thumb (M65.312) Active confirmed Problem Pain in left foot (116367387270547) Pain in left foot (M79.672) Active confirmed Problem Bursitis of left shoulder (423437643571316) Bursitis of left shoulder (M75.52) Active confirmed Problem Lumbosacral spondylosis without myelopathy (91543930) Spondylosis without myelopathy or radiculopathy, lumbar region (M47.816) Active confirmed Problem Backache (103850394) Dorsalgia, unspecified (M54.9) Active confirmed Problem Pain in right foot (079464242712684) Pain in right foot (M79.671) Active confirmed Problem Folliculitis (60117612) Folliculitis (L73.9) Active confirmed Problem Arthropathy of lumbar facet joint (disorder) (631814610) Facet arthropathy, lumbar (M47.816) Active confirmed Problem Tobacco user (103350460) Cigarette nicotine dependence without complication (F17.210) Active confirmed Problem Recurrent major depression in full remission (64606378) Major depressive disorder, recurrent, in full remission (F33.42) Active confirmed Problem Cholesterolosis of gallbladder (17576421) 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) Active confirmed Problem Localized, primary osteoarthritis of the pelvic region and thigh (775100111) Unilateral primary osteoarthritis, right hip (M16.11) Active confirmed Problem Degeneration of lumbar intervertebral disc (66609169) Other intervertebral disc degeneration, lumbar region (M51.36) Active confirmed Problem Nocturia (624811529) Nocturia (R35.1) Active confirmed Problem Gastroesophageal reflux disease without esophagitis (602540600) Gastroesophageal reflux disease without esophagitis (K21.9) Active confirmed Problem Long-term current use of insulin (106505765) detention (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 (Z79.4) Active confirmed Problem Chronic kidney disease due to hypertension (934751383768358) Hypertensive chronic kidney disease with stage 1 through stage 4 chronic kidney disease, or unspecified chronic kidney disease (I12.9) Active confirmed Problem Erectile dysfunction (disorder) (911160523) Erectile dysfunction, unspecified erectile dysfunction type (N52.9) Active confirmed Problem History of transurethral resection of prostate (707345241) S/P TURP (Z90.79) Active confirmed Problem Primary hypertension (64158204) Primary hypertension (I10) Active confirmed Problem Hyperlipidaemia (54464171) Hyperlipidemia, unspecified hyperlipidemia type (E78.5) Active confirmed Problem Shoulder joint pain (418452804) Left shoulder pain, unspecified chronicity (M25.512) Active confirmed Problem Type II diabetes mellitus without complication (747044122) Type 2 diabetes mellitus without complication, without long-term current use of insulin (E11.9) Active confirmed Problem Diabetic peripheral neuropathy associated with type 2 diabetes mellitus (6493999378057) Type 2 diabetes mellitus with diabetic neuropathy, without long-term current use of insulin (E11.40) Active confirmed Problem Chronic idiopathic constipation (91385623) Chronic idiopathic constipation (K59.04) Active confirmed Problem Secondary catara ct of both eyes, unspecified secondary cataract type (H26.40) Active confirmed Problem Lower urinary tract symptoms due to benign prostatic hypertrophy (97482123103927) Benign prostatic hyperplasia with lower urinary tract symptoms, symptom details unspecified (N40.1) Active confirmed Problem Glaucoma (25846319) Glaucoma, unspecified glaucoma type, unspecified laterality (H40.9) Active confirmed Problem Diverticulitis of colon (928810879) Diverticulitis of large intestine, unspecified bleeding status, unspecified complication status (K57.32) Active confirmed Problem Cirrhosis - non-alcoholic (672197038) Hepatic cirrhosis, unspecified hepatic cirrhosis type, unspecified whether ascites present (K74.60) Active confirmed Problem Low back pain (finding) (886023247) Low back pain, unspecified back pain laterality, unspecified chronicity, unspecified whether sciatica present (M54.50) Active confirmed Problem History of endocrine disorder (845530802) H/O hypogonadism (Z86.39) Active confirmed Vital Signs Height-cm 181.61 cm 08/25/2024 Height 71.5 in 08/25/2024 Encounters Encounter Location Date Provider Diagnosis [address] [address] 03/10/2024 Operations Clinical Folliculitis L73.9 ; Primary [...] Unilateral primary osteoarthritis, right hip M16.11 ; 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 ; Low back pain, unspecified back pain laterality, unspecified chronicity, unspecified whether sciatica present M54.50 ; Hypertensive chronic kidney disease with stage 1 through stage 4 chronic kidney disease, or unspecified chronic kidney disease I12.9 and Tachycardia, unspecified R00.0 [facility] [address] [place] [address] 08/25/2024 Arielle Hurtado Folliculitis L73.9 ; Primary [...] kidney disease I12.9 and Tachycardia, unspecified R00.0 [facility] [address] [address] 09/01/2024 Kaiden Michele [facility] [address] [place] [address] 12/19/2024 Arielle Hurtado [facility] [address] [place] [address] 12/31/2024 Arielle Hurtado Assessments Encounter Date Diagnosis [...] osteoarthritis, right hip (ICD-10 - M16.11) 03/10/2024 detention (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 (ICD-10 - Z79.4) Problem list updated using [employer] 08/25/2024 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 [place] SCO ([id number]) [address] [facility] [address] [place] [address] [id number] Modesto Rogers Self - patient is the insured 2 9
--- OUTSIDE RECORDS SUMMARY | 2025-02-15 20:00 | XMS_ITS | Clinical Summary ---
Author Organization Unknown Care Team Providers Care All Purpose Clerk Name Role Phone MAMADOU SUBRAMANIAN, RASHID Unavailable Unavailable RN, LUISA Unavailable Unavailable ASHUTOSH GOODSONN, SHAY Unavailable Unavailable CHRISTOS PT, ESVIN Unavailable Unavailable MATEUS BUSINESS PERFORMANCE MANAGER, JARED Unavailable Unavailable LENGIEZA OT, RINA Unavailable Unavailable CONDINO ILANA/RUBI, MARTINA Unavailable Unav ailable Payers Payer Name Policy Type Policy Number Effective Date Expira tion Date [facility].[id number] Problems Condition Name Condition Details [...] PATENT FORAMEN OVALE Active 04-23 00:00: 00 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) USE OF ORAL HYPOGLYCEMIC DRUGS Active 12-19 00:00: 00 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) USE OF INSULIN Active 12-19 00:00: 00 ASSISTED (CURRENT) USE OF ASPIRIN Active 12-19 00:00: [...] 5 mg tablet 11-19 00:00: 00 Yes [id number] DIABETES 1 tablet DAILY 1 tablet DAILY (route: oral) Med Classific ation: Endocrine clonidine HCl 0.1 mg tablet 11-15 00:00: 00 Yes [id number] HTN Per instruc tions TWICE DAILY Per instructio ns TWICE DAILY (route: oral) Med Classific ation: Cardiovas cular Therapy Agents aspirin 81 mg tablet 12-19 00:00: 00 Yes [id number] BLOOD CLOT PREVENTION 1 tablet DAILY 1 tablet DAILY (route: oral) Med Classific ation: Hematolog ical Agents carvedilol 25 mg tablet 12-19 00:00: 00 Yes [id number] HTN 1 tablet 2 TIMES DAILY 1 tablet 2 TIMES DAILY (route: oral) Med Classific ation: Cardiovas cular Therapy Agents hydralazine 100 mg tablet 12-19 00:00: 00 Yes [id number] HTN 1 tablet 3 TIMES DAILY 1 tablet 3 TIMES DAILY (route: oral) Med Classific ation: Cardiovas cular Therapy Agents insulin glargine (U-100) 100 unit/mL (3 mL) subcutaneou s pen 12-19 00:00: 00 Yes [id number] DIABETES 18 unit BEDTIME 18 unit BEDTIME (route: subcutaneo us) Med Classific ation: Endocrine insulin lispro (U-100) 100 unit/mL subcutaneou s pen 12-19 00:00: 00 Yes [id number] DIABETES 3-13 unit 3 TIMES DAILY 3-13 unit 3 TIMES DAILY (route: subcutaneo us) Med Classific ation: Endocrine rosuvastati n 40 mg tablet 12-19 00:00: 00 Yes [id number] CHOLESTEROL 1 tablet BEDTIME 1 tablet BEDTIME (route: oral) Med Classific ation: Cardiovas cular Therapy Agents tamsulosin 0.4 mg capsule 12-19 00:00: 00 Yes [id number] BPH 1 capsule BEDTIME 1 capsule BEDTIME [...] CONSULTING PHYSICIANS. RN TO OBSERVE AND ASSESS, LAMP SHADE ASSEMBLER/COFFEE WEIGHER TO OBSERVE FOR RISK FOR FALLS AND INSTRUCT IN FALL PREVENTION, HOME SAFETY, MEDICATION MANAGEMENT, INFECTION PREVENTION, AND NUTRITION MANAGEMENT. RN/LAMP SHADE ASSEMBLER/COFFEE WEIGHER NURSE MAY PERFORM O2 SATURATION LEVEL ON ADMISSION AND PRN FOR RN TO ASSESS/LAMP SHADE ASSEMBLER TO OBSERVE PATIENT, WITH NOTIFICATION TO THE PHYSICIAN IF SATURATION IS 90% IN THE ABSENCE OF MORE SPECIFIC PARAMETERS FROM THE PHYSICIAN. AGENCY MAY PERFORM A RESUMPTION OF CARE VISIT FOLLOWING ANY HOSPITAL ADMISSION. RN/LAMP SHADE ASSEMBLER/COFFEE WEIGHER TO MONITOR CO-MORBID CONDITIONS LISTED ON THE PLAN OF CARE AND ANY NEW CONDITIONS THAT PRESENT THEMSELVES DURING THIS EPISODE TO IDENTIFY CHANGES AND INTERVENE TO MINIMIZE COMPLICATIONS. [code = RN TO OBSERVE, ASSESS, EVALUATE, AND DEVELOP AN INDIVIDUALIZED PLAN OF CARE. AGENCY MAY ACCEPT ORDERS FROM CONSULTING PHYSICIANS. RN TO OBSERVE AND ASSESS, LAMP SHADE ASSEMBLER/COFFEE WEIGHER TO OBSERVE FOR RISK FOR FALLS AND INSTRUCT IN FALL PREVENTION, HOME SAFETY, MEDICATION MANAGEMENT, INFECTION PREVENTION, AND NUTRITION MANAGEMENT. RN/LAMP SHADE ASSEMBLER/COFFEE WEIGHER NURSE MAY PERFORM O2 SATURATION LEVEL ON ADMISSION AND PRN FOR RN TO ASSESS/LAMP SHADE ASSEMBLER TO OBSERVE PATIENT, WITH NOTIFICATION TO THE PHYSICIAN IF SATURATION IS 90% IN THE ABSENCE OF MORE SPECIFIC PARAMETERS FROM THE PHYSICIAN. AGENCY MAY PERFORM A RESUMPTION OF CARE VISIT FOLLOWING ANY HOSPITAL ADMISSION. RN/LAMP SHADE ASSEMBLER/COFFEE WEIGHER TO MONITOR CO-MORBID CONDITIONS LISTED ON THE PLAN OF CARE AND ANY NEW CONDITIONS THAT PRESENT THEMSELVES DURING THIS EPISODE TO IDENTIFY CHANGES AND INTERVENE TO MINIMIZE COMPLICATIONS.] Future Scheduled Test RISK FOR H OSPITALIZATION; RN TO ASSESS/TEACH, COFFEE WEIGHER/LAMP SHADE ASSEMBLER TO OBSERVE/TEACH PATIENT/CAREGIVER ON RISK FOR HOSPITALIZATION/EMERGENCY ROOM VISITS, TEACH SIGNS AND SYMPTOMS THAT PUT PATIENT AT RISK, WHEN TO NOTIFY NURSE/PHYSICIAN OF COMPLICATIONS/DECLINE, AND WHEN TO CALL 911. [code = RISK FOR HOSPITALIZATION; RN TO ASSESS/TEACH, COFFEE WEIGHER/LAMP SHADE ASSEMBLER TO OBSERVE/TEACH PATIENT/CAREGIVER ON RISK FOR HOSPITALIZATION/EMERGENCY ROOM VISITS, TEACH SIGNS AND SYMPTOMS THAT PUT PATIENT AT RISK, WHEN TO NOTIFY NURSE/PHYSICIAN OF COMPLICATIONS/DECLINE, AND WHEN TO CALL 911.] Future Scheduled Test MEDICATION MANAGEMENT; RN/LAMP SHADE ASSEMBLER/COFFEE WEIGHER TO REVIEW MEDICATIONS FOR INTERACTIONS, EFFECTIVENESS OF DRUG THERAPY, AND SIGNS/SYMPTOMS OF ADVERSE REACTIONS. MAY INSTRUCT AND REINFORCE MEDICATION TEACHING RELATED TO THE USE OF MEDICATIONS, DOSAGE, FREQUENCY, PURPOSE, SIDE EFFECTS, AND TO REPORT COMPLICATIONS. [code = MEDICATION MANAGEMENT; RN/LAMP SHADE ASSEMBLER/COFFEE WEIGHER TO REVIEW MEDICATIONS FOR INTERACTIONS, EFFECTIVENESS OF DRUG THERAPY, AND SIGNS/SYMPTOMS OF ADVERSE REACTIONS. MAY INSTRUCT AND REINFORCE MEDICATION TEACHING RELATED TO THE USE OF MEDICATIONS, DOSAGE, FREQUENCY, PURPOSE, SIDE EFFECTS, AND TO REPORT COMPLICATIONS.] Future Scheduled Test CARDIOVASC ULAR SYSTEM; RN TO ASSESS/TEACH, LAMP SHADE ASSEMBLER/COFFEE WEIGHER TO OBSERVE/TEACH RELATED TO ALTERED CARDIOVASCULAR STATUS TO MINIMIZE COMPLICATIONS AND REDUCE HOSPITALIZATION. [code = CARDIOVASCULAR SYSTEM; RN TO ASSESS/TEACH, LAMP SHADE ASSEMBLER/COFFEE WEIGHER TO OBSERVE/TEACH RELATED TO ALTERED CARDIOVASCULAR STATUS TO MINIMIZE COMPLICATIONS AND REDUCE HOSPITALIZATION.] Future Scheduled Test HYPERTENSI ON MANAGEMENT; RN TO ASSESS AND TEACH, LAMP SHADE ASSEMBLER/COFFEE WEIGHER TO OBSERVE AND TEACH WARNING SIGNS AND SYMPTOMS TO AVOID HOSPITALIZATION. [code = HYPERTENSION MANAGEMENT; RN TO ASSESS AND TEACH, LAMP SHADE ASSEMBLER/COFFEE WEIGHER TO OBSERVE AND TEACH WARNING SIGNS AND SYMPTOMS TO AVOID HOSPITALIZATION.] Future Scheduled Test NEUROLOGIC AL SYSTEM MANAGEMENT; RN TO ASSESS AND TEACH, COFFEE WEIGHER/LAMP SHADE ASSEMBLER TO OBSERVE AND TEACH RELATED TO ALTERED NEUROLOGICAL STATUS TO MINIMIZE COMPLICATIONS AND REDUCE HOSPITALIZATION. [code = NEUROLOGICAL SYSTEM MANAGEMENT; RN TO ASSESS AND TEACH, COFFEE WEIGHER/LAMP SHADE ASSEMBLER TO OBSERVE AND TEACH RELATED TO ALTERED NEUROLOGICAL STATUS TO MINIMIZE COMPLICATIONS AND REDUCE HOSPITALIZATION.] Future Scheduled Test CEREBRAL V ASCULAR ACCIDENT MANAGEMENT; RN/COFFEE WEIGHER/LAMP SHADE ASSEMBLER TO PROVIDE SKILLED TEACHING AND MANAGEMENT OF POST CEREBRAL VASCULAR ACCIDENT. [code = CEREBRAL VASCULAR ACCIDENT MANAGEMENT; RN/COFFEE WEIGHER/LAMP SHADE ASSEMBLER TO PROVIDE SKILLED TEACHING AND MANAGEMENT OF POST CEREBRAL VASCULAR ACCIDENT.] Future Scheduled Test SKIN INTEG RITY RN TO ASSESS AND TEACH, LAMP SHADE ASSEMBLER/COFFEE WEIGHER TO OBSERVE AND TEACH INTEGUMENTARY STATUS TO IDENTIFY CHANGES AND INTERVENE TO MINIMIZE COMPLICATIONS. PROVIDE SKILLED TEACHING OF GENERAL WOUND AND SKIN CARE AND PREVENTION RELATED TO POTENTIAL FOR OR ACTUAL ALTERED SKIN INTEGRITY. [code = SKIN INTEGRITY RN TO ASSESS AND TEACH, LAMP SHADE ASSEMBLER/COFFEE WEIGHER TO OBSERVE AND TEACH INTEGUMENTARY STATUS TO IDENTIFY CHANGES AND INTERVENE TO MINIMIZE COMPLICATIONS. PROVIDE SKILLED TEACHING OF GENERAL WOUND AND SKIN CARE AND PREVENTION RELATED TO POTENTIAL FOR OR ACTUAL ALTERED SKIN INTEGRITY.] Future Scheduled Test PAIN MANAG EMENT; RN TO ASSESS AND TEACH, COFFEE WEIGHER/LAMP SHADE ASSEMBLER TO OBSERVE AND TEACH AND PROVIDE EDUCATION ON PAIN MANAGEMENT TECHNIQUES. [code = PAIN MANAGEMENT; RN TO ASSESS AND TEACH, COFFEE WEIGHER/LAMP SHADE ASSEMBLER TO OBSERVE AND TEACH AND PROVIDE EDUCATION ON PAIN MANAGEMENT TECHNIQUES.] Future Scheduled Test DIABETES M ANAGEMENT; RN TO ASSESS AND TEACH, COFFEE WEIGHER/LAMP SHADE ASSEMBLER TO OBSERVE AND TEACH INSTRUCTIONS OF DIABETIC CARE TO INCLUDE: DIABETIC DIET, SKIN CARE, SIGNS AND SYMPTOMS OF HYPO/HYPERGLYCEMIA, PROPER ADMINISTRATION OF DIABETIC MEDICATION. RN/COFFEE WEIGHER/LAMP SHADE ASSEMBLER TO INSTRUCT ON DIABETIC FOOT CARE AND MONITOR FOR SKIN LESIONS ON LOWER EXTREMITIES. BLOOD GLUCOSE TESTING 3 X DAILY AND PRN FREQ. RN TO ASSESS AND TEACH, COFFEE WEIGHER/LAMP SHADE ASSEMBLER TO OBSERVE AND TEACH PATIENT/CAREGIVER ABILITY TO PERFORM AND RECORD BLOOD GLUCOSE TESTING ORDERED AND TO REPORT ABNORMAL FINDINGS TO PHYSICIAN. RN/COFFEE WEIGHER/LAMP SHADE ASSEMBLER MAY PERFORM BLOOD GLUCOSE TEST NEEDED. RN/COFFEE WEIGHER/LAMP SHADE ASSEMBLER TO REPORT TO PHYSICIAN BLOOD GLUCOSE READINGS GREATER THAN 350 OR LESS THAN 70. RN/COFFEE WEIGHER/LAMP SHADE ASSEMBLER TO INSTRUCT PATIENT ON IMPORTANCE OF HGBA1C MONITORING, KIDNEY FUNCTION TEST, EYE AND FOOT EXAMS. [code = DIABETES MANAGEMENT; RN TO ASSESS AND TEACH, COFFEE WEIGHER/LAMP SHADE ASSEMBLER TO OBSERVE AND TEACH INSTRUCTIONS OF DIABETIC CARE TO INCLUDE: DIABETIC DIET, SKIN CARE, SIGNS AND SYMPTOMS OF HYPO/HYPERGLYCEMIA, PROPER ADMINISTRATION OF DIABETIC MEDICATION. RN/COFFEE WEIGHER/LAMP SHADE ASSEMBLER TO INSTRUCT ON DIABETIC FOOT CARE AND MONITOR FOR SKIN LESIONS ON LOWER EXTREMITIES. BLOOD GLUCOSE TESTING 3 X DAILY AND PRN FREQ. RN TO ASSESS AND TEACH, COFFEE WEIGHER/LAMP SHADE ASSEMBLER TO OBSERVE AND TEACH PATIENT/CAREGIVER ABILITY TO PERFORM AND RECORD BLOOD GLUCOSE TESTING ORDERED AND TO REPORT ABNORMAL FINDINGS TO PHYSICIAN. RN/COFFEE WEIGHER/LAMP SHADE ASSEMBLER MAY PERFORM BLOOD GLUCOSE TEST NEEDED. RN/COFFEE WEIGHER/LAMP SHADE ASSEMBLER TO REPORT TO PHYSICIAN BLOOD GLUCOSE READINGS GREATER THAN 350 OR LESS THAN 70. RN/COFFEE WEIGHER/LAMP SHADE ASSEMBLER TO INSTRUCT PATIENT ON IMPORTANCE OF HGBA1C MONITORING, KIDNEY FUNCTION TEST, EYE AND FOOT EXAMS.] Future Scheduled Test FALL REDUC TION MANAGEMENT; RN TO ASSESS AND OBSERVE, LAMP SHADE ASSEMBLER/COFFEE WEIGHER TO OBSERVE FALL RISK FACTORS AND EDUCATE PATIENT/CAREGIVER ON STRATEGIES TO MINIMIZE THE RISK OF FALLING. [code = FALL REDUCTION MANAGEMENT; RN TO ASSESS AND OBSERVE, LAMP SHADE ASSEMBLER/COFFEE WEIGHER TO OBSERVE FALL RISK FACTORS AND EDUCATE [...] End Date/Time Encounter Type Admission Type Attending [facility] Facility Care Department Encounter ID Discharge Date Discharge Status Discharge Condition Discharge Reason Percent Goals Met 2024-12-19 00:00:00 2025-02-16 00:00:00 Outpatient NEW ADMISSION LUISA ANTHONY [facility] [id number]
== END 2025-01-14 11:29 | disposition home or self-care (01) ==
LOC: HO.HKAS 11:10
PROVIDERS: PCP Physician Assistant Medical; Visit Provider Internal Medicine Hypertension Specialist
DX: I12.9 Hypertensive chronic kidney disease with stage 1 through stage 4 chronic kidney disease, or unspecified chronic kidney disease (principal); N18.9 Chronic kidney disease, unspecified; N40.1 Benign prostatic hyperplasia with lower urinary tract symptoms; N13.8 Other obstructive and reflux uropathy; E11.42 Type 2 diabetes mellitus with diabetic polyneuropathy; D63.1 Anemia in chronic kidney disease
CPT/HCPCS: 99214

== ENCOUNTER → 2025-01-14 11:09 | Outpatient (BNVA) | payer OTHER, SELFPAY | PROVIDERS: PCP Physician Assistant Medical; Visit Provider Internal Medicine Hypertension Specialist | DX: I12.9 Hypertensive chronic kidney disease with stage 1 through stage 4 chronic kidney disease, or unspecified chronic kidney disease (principal); E11.22 Type 2 diabetes mellitus with diabetic chronic kidney disease; N18.9 Chronic kidney disease, unspecified; D63.1 Anemia in chronic kidney disease; N40.1 Benign prostatic hyperplasia with lower urinary tract symptoms; N13.8 Other obstructive and reflux uropathy; E11.42 Type 2 diabetes mellitus with diabetic polyneuropathy | CPT/HCPCS: 96372; 99212; Q5106 ==

== ENCOUNTER 2025-02-10 13:42 | Outpatient (REF) | payer OTHER, SELFPAY ==
--- OUTSIDE RECORDS SUMMARY | 2023-08-15 07:00 | XMS_ITS ---
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 Loader Name Role Phone Anel Padgett Primary Care Provider Kathya Arceo Unavailable [phone] Allergies Allergen (clinical drug ingredient) Drug/Non Drug Allergy documented on EMR Reaction Allergy Type Onset Date Status lisinopril Lisinopril Unknown Drug Allergy Activ e REASON FOR VISIT MDS Assessment Medications Medication SIG (Take, Route, Frequency, Duration) Notes Start Date End Date Status Aspirin 81 81 MG 1 tablet Orally Once a day Member reports not using anymore Not-Taking Valsartan 160 MG as directed Orally Active Omeprazole 20 MG 1 capsule 30 minutes before morning meal Orally Once a day Active Multivitamin - 1 tablet Orally Once a day One a day(brand name) Active Centrum Adults - as directed Orally Member reports not using anymore is using One Day Not-Taking Insulin Aspart 100 UNIT/ML as directed Subcutaneous Novolog 20 units Active Atorvastatin Calcium 80 MG 0.5 tablet Orally Once a day Active Latanoprost 0.005 % 1 drop into affected eye in the evening Ophthalmic Once a day Active Insulin Glargine 100 UNIT/ML as directed Subcutaneous 38 units Active Magnesium - as directed Orally Member taking 420 mg per day Active Naproxen 500 MG 1 tablet with food or milk as needed Orally every 12 hrs Member reports not using anymore Not-Taking amLODIPine Besylate 5 MG 1 tablet Orally Once a day Active Pregabalin 100 MG 1 capsule Orally Once a day Member reports not using anymore Not-Taking Trulicity 1.5 MG/0.5ML as directed Subcutaneous Member reports not using anymore, Switch to diffiennt Insulin Not-Taking Tresiba FlexTouch 200 UNIT/ML Sliding scale Subcutaneous Once a day Member reports not using anymore, switched to different Insulin Not-Taking hydroCHLOROthiazide 12.5 MG 1 capsule in the morning Orally Once a day Member reports not using anymore, taken of by Doctor Not-Taking Dicyclomine HCl 10 MG 1 capsules Orally Four times a day Member reports not using anymore Not-Taking Encounters Encounter Location Date Provider Diagnosis [place] [id number] [address] 08/15/2023 [place] Nupolu Folliculitis L73.9 ; Primary hypertension I10 ; Cigarette nicotine dependence without complication F17.210 ; Type 2 diabetes mellitus without complication, without long-term current use of insulin E11.9 ; Hyperlipidemia, unspecified hyperlipidemia type E78.5 ; Gastroesophageal reflux disease without esophagitis K21.9 ; Type 2 diabetes mellitus with diabetic neuropathy, without long-term current use of insulin E11.40 ; S/P TURP Z90.79 ; H/O hypogonadism Z86.39 ; Facet arthropathy, lumbar M47.816 ; Diverticulitis of large intestine, unspecified bleeding status, unspecified complication status K57.32 ; Secondary cataract of both eyes, unspecified secondary cataract type H26.40 ; Left shoulder pain, unspecified chronicity M25.512 ; Bursitis of left shoulder M75.52 ; Other intervertebral disc degeneration, lumbar region M51.36 ; Spondylosis without myelopathy or radiculopathy, lumbar region M47.816 ; Dorsalgia, unspecified M54.9 ; Chronic idiopathic constipation K59.04 ; Pain in right foot M79.671 ; Pain in left foot M79.672 ; Tinea unguium B35.1 ; Hepatic cirrhosis, unspecified hepatic cirrhosis type, unspecified whether ascites present K74.60 ; Cholesterolosis of gallbladder K82.4 ; Abdominal pain, unspecified site R10.9 ; Trigger thumb, left thumb M65.312 ; Benign prostatic hyperplasia with lower urinary tract symptoms, symptom details unspecified N40.1 ; Erectile dysfunction, unspecified erectile dysfunction type N52.9 ; Nocturia R35.1 ; Personal history of nicotine dependence Z87.891 ; Overweight E66.3 ; Glaucoma, unspecified glaucoma type, unspecified laterality H40.9 ; Major depressive disorder, recurrent, in full remission F33.42 ; Unilateral primary osteoarthritis, right hip M16.11 ; 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 Z79.4 and Low back pain, unspecified back pain laterality, unspecified chronicity, unspecified whether sciatica present M54.50 Assessments Encounter Date Diagnosis (ICD Code) Assessment Notes Treatment Notes Treatment Clinical Notes Section Notes 08/15/2023 Folliculitis (ICD-10 - L73.9) 08/15/2023 Primary hypertension (ICD-10 - I10) 08/15/2023 Cigarette nicotine dependence without complication (ICD-10 - F17.210) 08/15/2023 Type 2 diabetes mellitus without complication, without long-term current use of insulin (ICD-10 - E11.9) 08/15/2023 Hyperlipidemia, unspecified hyperlipidemia type (ICD-10 - E78.5) 08/15/2023 Gastroesophageal reflux disease without esophagitis (ICD-10 - K21.9) 08/15/2023 Type 2 diabetes mellitus with diabetic neuropathy, without long-term current use of insulin (ICD-10 - E11.40) 08/15/2023 S/P TURP (ICD-10 - Z90.79) 08/15/2023 H/O hypogonadism (ICD-10 - Z86.39) 08/15/2023 Facet arthropathy, lumbar (ICD-10 - M47.816) 08/15/2023 Diverticulitis of large intestine, unspecified bleeding status, unspecified complication status (ICD-10 - K57.32) 08/15/2023 Secondary cataract of both eyes, unspecified secondary cataract type (ICD-10 - H26.40) 08/15/2023 Left shoulder pain, unspecified chronicity (ICD-10 - M25.512) 08/15/2023 Bursitis of left shoulder (ICD-10 - M75.52) 08/15/2023 Other intervertebral disc degeneration, lumbar region (ICD-10 - M51.36) 08/15/2023 Spondylosis without myelopathy or radiculopathy, lumbar region (ICD-10 - M47.816) 08/15/2023 Dorsalgia, unspecified (ICD-10 - M54.9) 08/15/2023 Chronic idiopathic constipation (ICD-10 - K59.04) 08/15/2023 Pain in right foot (ICD-10 - M79.671) 08/15/2023 Pain in left foot (ICD-10 - M79.672) 08/15/2023 Tinea unguium (ICD-10 - B35.1) 08/15/2023 Hepatic cirrhosis, unspecified hepatic cirrhosis type, unspecified whether ascites present (ICD-10 - K74.60) 08/15/2023 Cholesterolosis of gallbladder (ICD-10 - K82.4) 08/15/2023 Abdominal pain, unspecified site (ICD-10 - R10.9) 08/15/2023 Trigger thumb, left thumb (ICD-10 - M65.312) 08/15/2023 Benign prostatic hyperplasia with lower urinary tract symptoms, symptom details unspecified (ICD-10 - N40.1) 08/15/2023 Erectile dysfunction, unspecified erectile dysfunction type (ICD-10 - N52.9) 08/15/2023 Nocturia (ICD-10 - R35.1) 08/15/2023 Personal history of nicotine dependence (ICD-10 - Z87.891) 08/15/2023 Overweight (ICD-10 - E66.3) 08/15/2023 Glaucoma, unspecified glaucoma type, unspecified laterality (ICD-10 - H40.9) 08/15/2023 Major depressive disorder, recurrent, in full remission (ICD-10 - F33.42) 08/15/2023 Unilateral primary osteoarthritis, right hip (ICD-10 - M16.11) 08/15/2023 senior living (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 (ICD-10 - Z79.4) 08/15/2023 Low back pain, unspecified back pain laterality, unspecified chronicity, unspecified whether sciatica present (ICD-10 - M54.50) Plan Of Treatment No Information Progress Notes * [place] SAM FDOB:1955 (69 yo M)Acc No.[id number]:08/15/2023 BLOCKED FROM THE PATIENT Patient: [place] WARE Brii External Provider: Dutch Herrera :1955 A ge:68 Y S ex:Male Date:08/15/2023 Address:[address] [place] [address] [place], [id number] Pcp:Anel Padgett Patient's Default Facility:[facility] Subjective: * Chief Complaints: * 1 . MDS Assessment. * HPI: D epression Screening: PHQ-9 L ittle interest or pleasure in doing things?Not at all F eeling down, depressed, or hopeless S everal days T rouble falling or staying asleep, or sleeping too much N ot at all F eeling tired or having little energy S everal days P oor appetite or overeating S ever F eeling bad about yourself or that you are a failure, or have let yourself or your family down N ot at all T rouble concentrating on things, such as reading the newspaper or watching television S ever M oving or speaking so slowly that other people could have noticed; or the opposite, being so fidgety or restless that you have been moving around a lot more than usual N ot at all T houghts that you would be better off or of hurting yourself in some way N ot at all T otal Score 4 I nterpretation M inimal Depression V irtual Care Visit Information: Visit Location, Methods & Consent: * REQUIRED* Virtual Care communication method:?Phone (audio only) P diego's location during visit: M vargas's home P lucien's location during visit: P lucien's home office M eliseoronaldo Verbal Consent Obtained: Y es We know that your privacy is very important, and we want you to know that we take all steps to make sure your privacy is protected, including all confidentiality protections under the law. [facility]'s virtual care platforms are HIPAA compliant and meet other (federal and state) privacy and security laws. Even though your communications with [facility] are private and secure, there is always some risk with any information that is transmitted through the internet. * Medical History: * Medications: T aking Latanoprost 0.005 % Solution 1 drop into affected eye in the evening Ophthalmic Once a day , Taking Insulin Aspart 100 UNIT/ML Solution Pen-injector as directed Subcutaneous Novolog 20 units, Taking Insulin Glargine 100 UNIT/ML Solution Pen-injector as directed Subcutaneous 38 units, Taking Magnesium - Capsule as directed Orally Member taking 420 mg per day, Taking Valsartan 160 MG Tablet as directed Orally , Taking Multivitamin - Tablet 1 tablet Orally Once a day One a day(brand name), Taking Omeprazole 20 MG Capsule Delayed Release 1 capsule 30 minutes before morning meal Orally Once a day , Taking amLODIPine Besylate 5 MG Tablet 1 tablet Orally Once a day , Taking Atorvastatin Calcium 80 MG Tablet 0.5 tablet Orally Once a day , Not-Taking hydroCHLOROthiazide 12.5 MG Capsule 1 capsule in the morning Orally Once a day , Notes to Pharmacist: Member reports not using anymore, taken of by Doctor, Not-Taking Tresiba FlexTouch 200 UNIT/ML Solution Pen-injector Sliding scale Subcutaneous Once a day , Notes to Pharmacist: Member reports not using anymore, switched to different Insulin, Not-Taking Trulicity 1.5 MG/0.5ML Solution Pen-injector as directed Subcutaneous , Notes to Pharmacist: Member reports not using anymore, Switch to diffiennt Insulin, Not-Taking Naproxen 500 MG Tablet 1 tablet with food or milk as needed Orally every 12 hrs , Notes to Pharmacist: Member reports not using anymore, Not-Taking Aspirin 81 81 MG Tablet Chewable 1 tablet Orally Once a day , Notes to Pharmacist: Member reports not using anymore, Not-Taking Centrum Adults - Tablet as directed Orally , Notes to Pharmacist: Member reports not using anymore is using One Day, Not-Taking Dicyclomine HCl 10 MG Capsule 1 capsules Orally Four times a day , Notes to Pharmacist: Member reports not using anymore, Not-Taking Pregabalin 100 MG Capsule 1 capsule Orally Once a day , Notes to Pharmacist: Member reports not using anymore * Allergies: L isinopril. Objective: * Vitals: Assessment: * Assessment: 1. F olliculitis - L73.9 2 . P rimary hypertension - I10 3 . C igarette nicotine dependence without complication - F17.210 4 . T ype 2 diabetes mellitus without complication, without long-term current use of insulin - E11.9 5. H yperlipidemia, unspecified hyperlipidemia type - E78.5 6 . G astroesophageal reflux disease without esophagitis - K21.9 7 . T ype 2 diabetes mellitus with diabetic neuropathy, without long-term current use of insulin - E11.40 8 . S/P TURP - Z90.79 9 . H /O hypogonadism - Z86.39 1 0. F acet arthropathy, lumbar - M47.816 1 1. D iverticulitis of large intestine, unspecified bleeding status, unspecified complication status - K57.32 1 2. S econdary cataract of both eyes, unspecified secondary cataract type - H26.40 1 3. L eft shoulder pain, unspecified chronicity - M25.512 1 4. B ursitis of left shoulder - M75.52 1 5. O ther intervertebral disc degeneration, lumbar region - M51.36 16. S pondylosis without myelopathy or radiculopathy, lumbar region - M47.816? 17. D orsalgia, unspecified - M54.9 1 8. C hronic idiopathic constipation - K59.04 1 9. P ain in right foot - M79.671 2 0. Pain in left foot - M79.672 2 1. T inea unguium - B35.1 2 2. H epatic cirrhosis, unspecified hepatic cirrhosis type, unspecified whether ascites present - K74.60 2 3. C holesterolosis of gallbladder - K82.4 2 4. A bdominal pain, unspecified site - R10.9 2 5. 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 26. B enign prostatic hyperplasia with lower urinary tract symptoms, symptom details unspecified - N40.1 2 7. E rectile dysfunction, unspecified erectile dysfunction type - N52.9 2 8. N octuria - R35.1 2 9. P ersonal history of nicotine dependence - Z87.891 3 0. O verweight - E66.3 ?31. G laucoma, unspecified glaucoma type, unspecified laterality - H40.9 3 2. Major depressive disorder, recurrent, in full remission - F33.42 3 3. U nilateral primary osteoarthritis, right hip - M16.11 3 4. L jolene term (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 - Z79.4 3 5. L ow back pain, unspecified back pain laterality, unspecified chronicity, unspecified whether sciatica present - M54.50 Plan: * Treatment: Care Plan: * Problems: * * The named appointment provid er may or may not be the originator of this progress note, and it is not deemed complete until electronically signed by the appointment provider. Sign off status: Pending * Provider: Dutch Herrera Date: 0 08/15/2023 Generated for Kelin chang/Elier/Christian on: 1 06:10 PM EDT History and Physical Notes * HPI (History of Present Illness) Category Sub-Category Detail Notes Category Not es Depression Screening PHQ-9 Little inte rest or pleasure in doing things: Not at all Feeling down, depressed, or hopeless: Se veral days Trouble falling or staying asleep, or sl eeping too much: Not at all Feeling tired or having little energy: S everal days Poor appetite or overeating: Several day s Feeling bad about yourself o r that you are a failure, or have let yourself or your family down: Not at all Trouble concentrating on thi ngs, such as reading the newspaper or watching television: Several days Moving or speaking so slowly that other people could have noticed; or the opposite, being so fidgety or restless that you have been moving around a lot more than usual: Not at all Thoughts that you would be b memo off or of hurting yourself in some way: Not at all Total Score: 4 Interpretation: Minimal Depression Virtual Care Visit Information Visit Location, Methods & Consent: *REQUIRED* Virtual Care communication method:: Phone (audio only) Patient's location during visit:: Member 's home Provider's location during visit:: Adarsh kidd's home office Member Verbal Consent Obtained:: Yes We know that your privacy is very important, and we want you to know that we take all steps to make sure your privacy is protected, including all confidentiality protections under the law. [facility]'s virtual care platforms are HIPAA compliant and meet other (federal and state) privacy and security laws. Even though your communications with [facility] are private and secure, there is always some risk with any information that is transmitted through the internet.
[2025-02-10 18:08] LABS: MANUAL DIFF FLAG NO
--- OUTSIDE RECORDS SUMMARY | 2025-02-10 18:09 | XMS_ITS | Clinical Summary ---
Author Organization [facility] Address [address] [place] [address] Care Team Providers Care Automatic Bow Maker Machine Tender Name Role Phone Anel Padgett [facility] Primary Care Provider [phone] Source Comments PLEASE NOTE, if this patient [...] injectionIndicatio ns:Diabetes mellitus type 2 in nonobese Inject w/meals 70-100 NO u 101- 140 2 U, 141-180 3 U, 181-220 4 U, 221-260 6 U, 261-300 8 U, 301-350 10 U,351-400 12 ,>400 callMD 10 mL 7 Active insulin needles 31 gauge x 1/4 Indications:Di abetes mellitus type 2 in nonobese DX.E11.65 insulin injection 4 times a day 100 Each 7 Active lancetsIndications :Diabetes mellitus type 2 in nonobese DX E11.65 . Blood sugar check 4 times a day 100 Each 7 Active aspirin [address] tabletIndications: Diabetes mellitus type 2 in nonobese Take 1 Tab by mouth once daily 8 Active insulin glargine (LANTUS) 100 unit/mL injectionIndicatio ns:Diabetes mellitus type 2 in nonobese Inject 60 Units into the skin once daily 10 mL 5 8 Active linagliptin (TRADJENTA) 5 mg tabIndications:Ava betes mellitus type 2 in nonobese Take 1 Tab by mouth once daily 30 Tab 3 8 Active FREESTYLE LITE STRIPS stripsIndications: Diabetes mellitus type 2 in nonobese USE TO TEST BLOOD SUGAR THREE TIMES [...] mcg/actuation nasal sprayIndications:N [place] congestion Place 1 [place] in both nostrils once daily for 14 [...] 01/20/2017 Overview (01/20/2017): Colonoscopy done 11/11/14 at [facility] - small hiatus hernia with no evidence of reflux esophagitis , normal colonoscopy Endoscopy also done - DX superficial gastritis Diverticulitis of large intestine 04/05/2015 Overview (04/05/2015): Seen at [facility] 03/25/2015 for abdominal pain for 3 days. Treated with Levaquin,and flagyl . CT Scan : Wall thickening with Inflammatory changes surrounding junction of descending/sigmoid colon. Pt has history of Diverticulitis S/P Partial colon Resection 2-3 years ago. History of Negative Colonoscopy early 2014 at [facility] Facet arthropathy, lumbar 02/03/2015 Overview (02/03/2015): Sees [place] [facility]. X-ray 12/05/2014 L4-L5 facet arthropathy. Undergoing PT. X- Ray hip normal H/O hypogonadism 01/19/2015 Overview (01/19/2015): Sees Urologist S/P TURP 02/25/2014 Overview (07/01/2017): Done 10/21/2013. Sees Urologist Hood Elizondo 05/25/17 - No show to Urology F/U DM type 2 (diabetes mellitus, type 2) 07/28/2013 Overview (09/10/2013): Pt sees Endo at [facility] Hyperlipidemia 07/28/2013 GERD (gastroesophageal reflux disease) 4 DM neuropathy, painful 07/28/2013 Diabetic eye exam 06/27/2013 Overview (06/27/2013): Pt has an eye [...] Description 02/11/2025 1:00 PM EDT Office Visit [facility] [address] [place] [address] Anel Padgett, [employer]ER [address] [place] [address] Health Maintenance Due Date Last Done Comments [...] 11/03/2024 05/06/2024, 04/12/2017, 02/27/2017, Additional history exists [id number] ( season) 2024 01/23/2024, 01/31/2022, 04/02/2021, Additional [...] complication, with long-term current use of insulin ([facility]) Hypertension, unspecified type LIPID PANEL Routine 05/06/2024 1:56 PM EST Encounter to establish care Controlled type 2 diabetes mellitus without complication, with long-term current use of insulin ([facility]) Hypertension, unspecified type MICROALBUMIN/CREATININ E RATIO, URINE, RANDOM Routine 05/06/2024 1:56 PM EST Encounter to establish care Controlled type 2 diabetes mellitus without complication, with long-term current use of insulin ([facility]) HGBA1C W/MPG Routine 05/06/2024 1:56 PM EST Encounter to establish care Controlled type 2 diabetes mellitus without complication, with long-term current use of insulin ([facility]) HEPATITIS A,B,C PANEL Routine 02/27/2017 11:10 AM EST Multiple joint pain from Last 3 Months or Most Recently Relevant to Health Maintenance Results * (ABNORMAL) HGBA1C W/MPG (05/06/2024 1:56 PM EST) HEMOGLOBIN A1C 7.4(H) <5.7 % of total Hgb [facility] Comment: For someone without known diabetes, a [...] children. MEAN PLASMA GLUCOSE 186 mg/dL (calc) [facility] Blood Blood / Unknown 05/06/2024 1 :56 PM EST 05/06/2024 1:56 PM EST Narrative [facility] - 05/08/2024 5:49 PM EST FASTING:NO us Mary Osborne PA-C LAB - BLOOD DRAW Edited Res ult - Final [facility] [address] [place] [address], [facility] [address] [place] [phone] * (ABNORMAL) MICROALBUMIN/CREATININE RATIO, URINE, RANDOM (05/06/2024 1:56 PM EST) CREATININE, RANDOM URINE 37 20 - 320 mg/dL [facility] MICROALBUMIN 147.9 mg/dL [facility] Comment: Verified by repeat analysis. Reference Range Not established MICROALBUMIN/CREA TININE RATIO, RANDOM URINE 3,997(H) <30 mg/g creat [facility] Comment: The ADA defines abnormalities in albumin [...] PM EST 05/06/2024 1:56 PM EST Narrative [facility] - 05/08/2024 5:49 PM EST FASTING:NO Mary Osborne PA-C LAB URINE AMBULATORY Final Result Performing Organization Address [facility] Co de Phone Number [facility] [address] [address], [facility] [address] [address] * (ABNORMAL) LIPID PANEL (05/06/2024 1:56 PM EST) CHOLESTEROL, TOTAL 122 <200 mg/dL [facility] HDL CHOLESTEROL 41 > OR = 40 mg/dL [facility] TRIGLYCERIDES 174(H) <150 mg/dL [facility] LDL-CHOLESTEROL 56 99 mg/dL (calc) [facility] Comment: Reference range: <100 Desirable range <100 mg/dL for primary prevention; <70 mg/dL for patients with CHD or diabetic patients with > or = 2 CHD risk factors. LDL-C is now calculated using the Hola-Jorge calculation, which is a validated novel method providing better accuracy than the Friedewald equation in the estimation of LDL-C. Hola SS et al. KAUSHIK. 2013;310(19): 7328-1560 (http://education.Graffiti/faq/BJJ587) CHOL/HDLC RATIO 3.0 <5.0 (calc) [facility] NON-HDL CHOLESTEROL 81 <130 mg/dL (calc) [facility] Comment: For patients with diabetes plus 1 major ASCVD risk factor, treating to a non-HDL-C goal of <100 mg/dL (LDL-C of <70 mg/dL) is considered a therapeutic option. Blood Blood / Unknown 05/06/2024 1 :56 PM EST 05/06/2024 1:56 PM EST Narrative [facility] - 05/08/2024 5:49 PM EST FASTING:NO us Mary Osborne PA-C LAB - BLOOD DRAW Final Resu lt Performing Organization Address City/[facility]/ZIP Co de Phone Number [facility] [facility] [address] [address], [facility] [address] [place] [address] * (ABNORMAL) COMPREHENSIVE METABOLIC PANEL (05/06/2024 1:56 PM EST) GLUCOSE 329(H) 65 - 139 mg/dL [facility] Comment: Non-fasting reference interval UREA NITROGEN (BUN) 39(H) 7 - 25 mg/dL [facility] CREATININE (blood) 2.99(H) 0.70 - 1.35 mg/dL [facility] EGFR 22(L) > OR = 60 mL/min/1. 73m2 [facility] BUN/CREATININE RATIO 13 6 - 22 (calc) [facility] SODIUM 133(L) 135 - 146 mmol/L [facility] POTASSIUM 4.4 3.5 - 5.3 mmol/L [facility] CHLORIDE 101 98 - 110 mmol/L [facility] CARBON DIOXIDE 22 20 - 32 mmol/L [facility] CALCIUM 8.4(L) 8.6 - 10.3 mg/dL [facility] PROTEIN, TOTAL 5.8(L) 6.1 - 8.1 g/dL [facility] ALBUMIN 3.2(L) 3.6 - 5.1 g/dL [facility] GLOBULIN 2.6 1.9 - 3.7 g/dL (calc) [facility] ALBUMIN/GLOBULI N RATIO 1.2 1.0 - 2.5 (calc) [facility] BILIRUBIN, TOTAL 0.3 0.2 - 1.2 mg/dL [facility] ALKALINE PHOSPHATASE 181(H) 35 - 144 U/L [facility] AST 25 10 - 35 U/L [facility] ALT 26 9 - 46 U/L [facility] Blood Blood / Unknown 05/06/2024 1 :56 PM EST 05/06/2024 1:56 PM EST Narrative [employer] [facility] - 05/08/2024 5:49 PM EST FASTING:NO us Mary Osborne PA-C LAB - BLOOD DRAW Edited Res ult - Final [facility] [address] [address], [facility] [address] [place] [address] * HEPATITIS A,B,C PANEL (02/27/2017 11:10 AM EST) HEPATITIS B SURFACE ANTIBODY NEGATIVE NEGATIVE [facility] HEPATITIS B SURFACE ANTIGEN NEGATIVE NEGATIVE [facility] Comment: Over the counter supplements containing high doses of biotin may interfere with this assay. If interference is suspected, patients shoud be retested after refraining from biotin supplements for 72 hours. HEPATITIS C VIRUS DIAGNOSTIC NEGATIVE NEGATIVE [facility] HEPATITIS B CORE ANTIBODY NEGATIVE NEGATIVE [facility] HEPATITIS A ANTIBODY TOTAL NEGATIVE NEGATIVE [facility] Comment: Over the counter supplements containing high doses of biotin may interfere with this assay. If interference is suspected, patients shoud be retested after refraining from biotin supplements for 72 hours. Blood specimen (specimen) Blood / Unknown 02/27/2017 11:10 AM EST 02/27/2017 11:33 AM EST Narrative [facility] - 02/27/2017 4:19 PM EST [employer] [address] [place] [address] [place] ID [id number] ORD# [id number] Gregor GRIFFITH LAB - BLOOD DRAW Edited Result - Final [facility] [address] [place] [address], from Last 3 Months or Most Recently Relevant to Health Maintenance Insurance [facility] [employer] DENTAL [facility] [place] [address] [place] [address] [facility] Care Teams Automatic Bow Maker Machine Tender Relationship Specialty Start Date End Date Anel Padgett FNP [address] [place] [address] PCP - General Internal Medicine 09/05/21
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
--- OUTSIDE RECORDS SUMMARY | 2025-02-10 18:10 | XMS_ITS | Patient Health Record ---
Author Organization [facility] [place] [address] Care Team Providers Care Superintendent Operations Division Name Role Phone Anel Padgett Primary Care Provider Unavailabl e Clinical, Operations Unavailable Unavailable Kaiden Bautista Unavailable [phone] Arielle Hurtado Unavailable [phone] Allergies Allergen (clinical drug ingredient) Drug/Non Drug [...] COVID-19 Vaccine IM Unknown 04/02/2021 Administ ered [facility] COVID-19 Vaccine IM Unknown 06/29/2020 Administered [facility] COVID-19 Vaccine IM Unknown 07/20/2020 Administered Pneumococcal Vac (Pneumovax 23) SDV / PFS, IM Unknown 07/22/2021 Administered Problems Problem Type SNOMED Code ICD Code Onset Dates Problem Status W/U Status Risk Notes Problem Nicotine dependence (68394100) Personal history of nicotine dependence (Z87.891) Active confirmed Problem Tinea unguium (256290244) Tinea unguium (B35.1) Active confirmed Problem Overweight (524796692) Overweight (E66.3) Active confirmed Problem Tachycardia (5529291) Tachycardia, unspecified (R00.0) Active confirmed Problem Abdominal pain (finding) (53861990) Abdominal pain, unspecified site (R10.9) Active confirmed Problem Acquired trigger finger (2260707) Trigger thumb, left thumb (M65.312) Active confirmed Problem Pain in left foot (349483000442619) Pain in left foot (M79.672) Active confirmed Problem Bursitis of left shoulder (217778614680641) Bursitis of left shoulder (M75.52) Active confirmed Problem Lumbosacral spondylosis without myelopathy (07688983) Spondylosis without myelopathy or radiculopathy, lumbar region (M47.816) Active confirmed Problem Backache (153156694) Dorsalgia, unspecified (M54.9) Active confirmed Problem Pain in right foot (777899533538548) Pain in right foot (M79.671) Active confirmed Problem Folliculitis (78567595) Folliculitis (L73.9) Active confirmed Problem Arthropathy of lumbar facet joint (disorder) (353513976) Facet arthropathy, lumbar (M47.816) Active confirmed Problem Tobacco user (271649480) Cigarette nicotine dependence without complication (F17.210) Active confirmed Problem Recurrent major depression in full remission (57659681) Major depressive disorder, recurrent, in full remission (F33.42) Active confirmed Problem Cholesterolosis of gallbladder (47964561) 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) Active confirmed Problem Localized, primary osteoarthritis of the pelvic region and thigh (571840537) Unilateral primary osteoarthritis, right hip (M16.11) Active confirmed Problem Degeneration of lumbar intervertebral disc (04573731) Other intervertebral disc degeneration, lumbar region (M51.36) Active confirmed Problem Nocturia (984570059) Nocturia (R35.1) Active confirmed Problem Gastroesophageal reflux disease without esophagitis (936960196) Gastroesophageal reflux disease without esophagitis (K21.9) Active confirmed Problem Long-term current use of insulin (603715548) 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 (Z79.4) Active confirmed Problem Chronic kidney disease due to hypertension (517174695459694) Hypertensive chronic kidney disease with stage 1 through stage 4 chronic kidney disease, or unspecified chronic kidney disease (I12.9) Active confirmed Problem Erectile dysfunction (disorder) (042589336) Erectile dysfunction, unspecified erectile dysfunction type (N52.9) Active confirmed Problem History of transurethral resection of prostate (794331505) S/P TURP (Z90.79) Active confirmed Problem Primary hypertension (08185563) Primary hypertension (I10) Active confirmed Problem Hyperlipidaemia (22331577) Hyperlipidemia, unspecified hyperlipidemia type (E78.5) Active confirmed Problem Shoulder joint pain (842656052) Left shoulder pain, unspecified chronicity (M25.512) Active confirmed Problem Type II diabetes mellitus without complication (502062323) Type 2 diabetes mellitus without complication, without long-term current use of insulin (E11.9) Active confirmed Problem Diabetic peripheral neuropathy associated with type 2 diabetes mellitus (3129820157697) Type 2 diabetes mellitus with diabetic neuropathy, without long-term current use of insulin (E11.40) Active confirmed Problem Chronic idiopathic constipation (15347050) Chronic idiopathic constipation (K59.04) Active confirmed Problem Secondary catara ct of both eyes, unspecified secondary cataract type (H26.40) Active confirmed Problem Lower urinary tract symptoms due to benign prostatic hypertrophy (81991077243433) Benign prostatic hyperplasia with lower urinary tract symptoms, symptom details unspecified (N40.1) Active confirmed Problem Glaucoma (17063280) Glaucoma, unspecified glaucoma type, unspecified laterality (H40.9) Active confirmed Problem Diverticulitis of colon (301361562) Diverticulitis of large intestine, unspecified bleeding status, unspecified complication status (K57.32) Active confirmed Problem Cirrhosis - non-alcoholic (655646102) Hepatic cirrhosis, unspecified hepatic cirrhosis type, unspecified whether ascites present (K74.60) Active confirmed Problem Low back pain (finding) (839372847) Low back pain, unspecified back pain laterality, unspecified chronicity, unspecified whether sciatica present (M54.50) Active confirmed Problem History of endocrine disorder (051979076) H/O hypogonadism (Z86.39) Active confirmed Vital Signs Height-cm 181.61 cm 08/25/2024 Height 71.5 in 08/25/2024 Encounters Encounter Location Date Provider Diagnosis [address] [address] 09/01/2024 Kaiden Bautista [facility] [address] [place] [address] 12/19/2024 Arielle Hurtado [facility] [address] [place] [address] 12/31/2024 Arielle Hurtado [facility] [address] [place] [address] 03/10/2024 Operations Clinical Folliculitis L73.9 ; Primary [...] Unilateral primary osteoarthritis, right hip M16.11 ; 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 Z79.4 ; Low back pain, unspecified back pain laterality, unspecified chronicity, unspecified whether sciatica present M54.50 ; Hypertensive chronic kidney disease with stage 1 through stage 4 chronic kidney disease, or unspecified chronic kidney disease I12.9 and Tachycardia, unspecified R00.0 [facility] [address] [place] [address] 08/25/2024 Arielle Hurtado Folliculitis L73.9 ; Primary [...] Unilateral primary osteoarthritis, right hip M16.11 ; assisted (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 Z79.4 ; Low [...] osteoarthritis, right hip (ICD-10 - M16.11) 03/10/2024 assisted (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 (ICD-10 - Z79.4) Problem list updated using [employer] 08/25/2024 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
[2025-02-10 18:11] LABS: Hematocrit 28.5 % (42.0-52.0); Hemoglobin 9.4 g/dl (14.0-18.0); Imm Gran Abs Auto 0.01 X10*3/uL (0.00-0.03); Imm Gran Pct Auto 0.3 % (0.0-0.4); Lymphocytes Absolute Auto 1.2 X10*3/uL (1.2-4.9); Mean Corpuscular HGB Conc 33.0 g/dl (31.0-36.0); Mean Corpuscular Hemoglobin 30.4 pg (27.0-33.0); Mean Corpuscular Volume 92.2 fL (80.0-98.0); NRBC Abs Auto 0.000 X10*3/uL (0.0-0.012); NRBC Pct Auto 0.0 /100WBC (0.0-0.2); Platelet Count 167 X10*3/uL (160-400); Red Blood Count 3.09 X10*6/uL (4.60-5.80); White Blood Count 3.9 X10*3/uL (4.8-10.8)
[2025-02-10 20:28] LABS: Anion Gap 14 (12-20); Blood Urea Nitrogen 76 mg/dL (9-16); Calcium 8.3 mg/dL (8.4-10.2); Carbon Dioxide 19 mmol/L (22-29); Chloride 107 mmol/L (96-108); Estimated Glomerular Filt Rate 11; Potassium 5.1 mmol/L (3.3-5.1); Sodium 135 mmol/L (135-145)
--- OUTSIDE RECORDS SUMMARY | 2025-02-15 20:00 | XMS_ITS | Clinical Summary ---
Author Organization Unknown Care Team Providers Care Rn Document Improvement Specialist Name Role Phone MAMADOU SUBRAMANIAN, RASHID Unavailable Unavailable RN, LUISA Unavailable Unavailable ASHUTOSH GOODSONN, SHAY Unavailable Unavailable CHRISTOS PT, ESVIN Unavailable Unavailable MATEUS VALANCE CUTTER, JARED Unavailable Unavailable LENGIEZA OT, RINA Unavailable Unavailable CONDINO ILANA/RUBI, MARTINA Unavailable Unav ailable Payers Payer Name Policy Type Policy Number Effective Date Expira tion Date [facility].OPTUM.[id number].[id number] Problems Condition Name Condition Details Condition Category [...] 00 ANEMIA IN CHRONIC KIDNEY DISEASE Active 904 00:00: 00 HYPERKALEMIA Active 904 00:00: 00 UNSPECIFIED CONVULSIONS Active 12-19 00:00: [...] PATENT FORAMEN OVALE Active 04-23 00:00: 00 DIZZINESS AND GIDDINESS Active 04 00:00: 00 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 Active 12-19 00:00: 00 CUSTODIAL (CURRENT) USE OF INSULIN Active 12-19 00:00: 00 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 Active 12-19 00:00: [...] 5 mg tablet 11-19 00:00: 00 Yes [id number] DIABETES 1 tablet DAILY 1 tablet DAILY (route: oral) Med Classific ation: Endocrine clonidine HCl 0.1 mg tablet 11-15 00:00: 00 01-28 23:59 :00 No [id number] HTN Per instruc tions TWICE DAILY Per instructio ns TWICE DAILY (route: oral) Med Classific ation: Cardiovas cular Therapy Agents aspirin 81 mg tablet 12-19 00:00: 00 Yes [id number] BLOOD CLOT PREVENTION 1 tablet DAILY 1 tablet DAILY (route: oral) Med Classific ation: Hematolog ical Agents carvedilol 25 mg tablet 12-19 00:00: 00 Yes [id number] HTN 1 tablet 2 TIMES DAILY 1 tablet 2 TIMES DAILY (route: oral) Med Classific ation: Cardiovas cular Therapy Agents hydralazine 100 mg tablet 12-19 00:00: 00 01-28 23:59 :00 No [id number] HTN 1 tablet 3 TIMES DAILY 1 tablet 3 TIMES DAILY (route: oral) Med Classific ation: Cardiovas cular Therapy Agents insulin glargine (U-100) 100 unit/mL (3 mL) subcutaneou s pen 12-19 00:00: 00 01-07 23:59 :00 No [id number] DIABETES 18 unit BEDTIME 18 unit BEDTIME (route: subcutaneo us) Med Classific ation: Endocrine insulin lispro (U-100) 100 unit/mL subcutaneou s pen 12-19 00:00: 00 Yes [id number] DIABETES 3-13 unit 3 TIMES DAILY 3-13 unit 3 TIMES DAILY (route: subcutaneo us) Med Classific ation: Endocrine rosuvastati n 40 mg tablet 12-19 00:00: 00 Yes [id number] CHOLESTEROL 1 tablet BEDTIME 1 tablet BEDTIME (route: oral) Med Classific ation: Cardiovas cular Therapy Agents tamsulosin 0.4 mg capsule 12-19 00:00: 00 Yes [id number] BPH 1 capsule BEDTIME 1 capsule BEDTIME (route: oral) Med Classific ation: Genitouri nary Therapy insulin glargine (U-100) 100 unit/mL (3 mL) subcutaneou s pen 16 00:00: 00 Yes [id number] DIABETES 15 unit BEDTIME 15 unit BEDTIME (route: subcutaneo us) Med Classific ation: Endocrine Lidocaine Pain Relief 4 % topical patch 01-07 00:00: 00 Yes [id number] PAIN 1 adhesiv e patch, medicat ed DAILY 1 adhesive patch, medicated DAILY (route: topical) Med Classific ation: Dermatolo gical clonidine HCl 0.1 mg tablet 2024-04 008 00:00: 00 Yes [id number] HTN 1 tablet DAILY 1 tablet DAILY (route: oral) Med Classific ation: Cardiovas cular Therapy Agents hydralazine 100 mg tablet 2024-04 008 00:00: 00 Yes [id number] HTN 1 tablet 2 TIMES DAILY 1 tablet 2 TIMES DAILY (route: oral) Med Classific ation: Cardiovas cular Therapy Agents Vital Signs Vital Name Observation Time Observation Value Commen ts Temperature 2025-02-04 13:25:00.000 97 [degF] Temperature 2025-02-03 13:22:00.000 97.8 [degF] Temperature 2025-01-28 11:11:00.000 98.6 [degF] Temperature 2025-01-27 10:59:00.000 98.7 [degF] Temperature 2025-01-21 13:10:00.000 97 [degF] Temperature 2025-01-20 11:36:00.000 97.4 [degF] Temperature 2025-01-16 13:40:00.000 98.1 [degF] Temperature 2025-01-13 15:00:00.000 97.7 [degF] Temperature 2025-01-07 11:31:00.000 98.3 [degF] Temperature 2024-12-24 10:27:00.000 97 [degF] Temperature 2024-12-19 11:09:00.000 97.7 [degF] BMI (%) 2025-01-07 11:29:14.000 24 kg/m2 BMI (%) 2024-12-19 11:09:00.000 24 kg/m2 Height 2025-01-07 11:29:05.000 72 [in_us] Height 2024-12-19 11:09:00.000 72 [in_us] Pulse 2025-02-04 13:25:00.000 71 /min Pulse 2025-02-03 13:22:00.000 64 /min Pulse 2025-01-28 11:11:00.000 72 /min Pulse 2025-01-27 10:59:00.000 62 /min Pulse 2025-01-21 13:10:00.000 68 /min Pulse 2025-01-20 11:36:00.000 74 /min Pulse 2025-01-16 13:40:00.000 71 /min Pulse 2025-01-13 15:00:00.000 74 /min Pulse 2025-01-07 11:31:00.000 78 /min Pulse 2024-12-24 10:27:00.000 73 /min Pulse 2024-12-19 11:09:00.000 70 /min O2 Saturation (%) 2025-02-04 13:25:00.000 98 % O2 Saturation (%) 2025-02-03 13:22:00.000 96 % O2 Saturation (%) 2025-01-28 11:11:00.000 98 % O2 Saturation (%) 2025-01-27 10:59:00.000 97 % O2 Saturation (%) 2025-01-21 13:10:00.000 98 % O2 Saturation (%) 2025-01-20 11:36:00.000 98 % O2 Saturation (%) 2025-01-16 13:40:00.000 97 % O2 Saturation (%) 2025-01-13 15:00:00.000 98 % O2 Saturation (%) 2025-01-07 11:31:00.000 97 % O2 Saturation (%) 2024-12-24 10:27:00.000 98 % O2 Saturation (%) 2024-12-19 11:09:00.000 98 % Respirations 2025-02-04 13:25:00.000 18 /min Respirations 2025-02-03 13:22:00.000 18 /min Respirations 2025-01-28 11:11:00.000 18 /min Respirations 2025-01-27 10:59:00.000 18 /min Respirations 2025-01-21 13:10:00.000 18 /min Respirations 2025-01-20 11:36:00.000 18 /min Respirations 2025-01-16 13:40:00.000 18 /min Respirations 2025-01-13 15:00:00.000 18 /min Respirations 2025-01-07 11:31:00.000 18 /min Respirations 2024-12-24 10:27:00.000 18 /min Respirations 2024-12-19 11:09:00.000 18 /min Weight (lbs) 2025-01-07 11:29:14.000 180.8 [lb_av] Weight (lbs) 2024-12-19 11:09:00.000 181 [lb_av] Systolic Blood Pressure 2025-02-04 13:25:00.000 146 mm [Hg] Systolic Blood Pressure 2025-02-03 13:22:00.000 130 mm [Hg] Systolic Blood Pressure 2025-01-28 11:11:00.000 160 mm [Hg] Systolic Blood Pressure 2025-01-27 10:59:00.000 110 mm [Hg] Systolic Blood Pressure 2025-01-21 13:10:00.000 142 mm [Hg] Systolic Blood Pressure 2025-01-20 11:36:00.000 148 mm [Hg] Systolic Blood Pressure 2025-01-16 13:40:00.000 128 mm [Hg] Systolic Blood Pressure 2025-01-13 15:00:00.000 140 mm [Hg] Systolic Blood Pressure 2025-01-07 11:31:00.000 110 mm [Hg] Systolic Blood Pressure 2024-12-24 10:27:00.000 132 mm [Hg] Systolic Blood Pressure 2024-12-19 11:09:00.000 110 mm [Hg] Diastolic Blood Pressure 2025-02-04 13:25:00.000 68 mm [Hg] Diastolic Blood Pressure 2025-02-03 13:22:00.000 68 mm [Hg] Diastolic Blood Pressure 2025-01-28 11:11:00.000 78 mm [Hg] Diastolic Blood Pressure 2025-01-27 10:59:00.000 58 mm [Hg] Diastolic Blood Pressure 2025-01-21 13:10:00.000 70 mm [Hg] Diastolic Blood Pressure 2025-01-20 11:36:00.000 82 mm [Hg] Diastolic Blood Pressure 2025-01-16 13:40:00.000 68 mm [Hg] Diastolic Blood Pressure 2025-01-13 15:00:00.000 74 mm [Hg] Diastolic Blood Pressure 2025-01-07 11:31:00.000 62 mm [Hg] Diastolic Blood Pressure 2024-12-24 10:27:00.000 70 mm [Hg] Diastolic Blood Pressure 2024-12-19 11:09:00.000 60 mm [Hg] Plan of Treatment Planned Activity Planned Date Details Comments Future Scheduled Test RN TO OBSE RVE, ASSESS, EVALUATE, AND DEVELOP AN INDIVIDUALIZED PLAN OF CARE. AGENCY MAY ACCEPT ORDERS FROM CONSULTING PHYSICIANS. RN TO OBSERVE AND ASSESS, PUBLIC TRANSPORTATION INSPECTOR/LEATHER STRETCHER TO OBSERVE FOR RISK FOR FALLS AND INSTRUCT IN FALL PREVENTION, HOME SAFETY, MEDICATION MANAGEMENT, INFECTION PREVENTION, AND NUTRITION MANAGEMENT. RN/PUBLIC TRANSPORTATION INSPECTOR/LEATHER STRETCHER NURSE MAY PERFORM O2 SATURATION LEVEL ON ADMISSION AND PRN FOR RN TO ASSESS/PUBLIC TRANSPORTATION INSPECTOR TO OBSERVE PATIENT, WITH NOTIFICATION TO THE PHYSICIAN IF SATURATION IS 90% IN THE ABSENCE OF MORE SPECIFIC PARAMETERS FROM THE PHYSICIAN. AGENCY MAY PERFORM A RESUMPTION OF CARE VISIT FOLLOWING ANY HOSPITAL ADMISSION. RN/PUBLIC TRANSPORTATION INSPECTOR/LEATHER STRETCHER TO MONITOR CO-MORBID CONDITIONS LISTED ON THE PLAN OF CARE AND ANY NEW CONDITIONS THAT PRESENT THEMSELVES DURING THIS EPISODE TO IDENTIFY CHANGES AND INTERVENE TO MINIMIZE COMPLICATIONS. [code = RN TO OBSERVE, ASSESS, EVALUATE, AND DEVELOP AN INDIVIDUALIZED PLAN OF CARE. AGENCY MAY ACCEPT ORDERS FROM CONSULTING PHYSICIANS. RN TO OBSERVE AND ASSESS, PUBLIC TRANSPORTATION INSPECTOR/LEATHER STRETCHER TO OBSERVE FOR RISK FOR FALLS AND INSTRUCT IN FALL PREVENTION, HOME SAFETY, MEDICATION MANAGEMENT, INFECTION PREVENTION, AND NUTRITION MANAGEMENT. RN/PUBLIC TRANSPORTATION INSPECTOR/LEATHER STRETCHER NURSE MAY PERFORM O2 SATURATION LEVEL ON ADMISSION AND PRN FOR RN TO ASSESS/PUBLIC TRANSPORTATION INSPECTOR TO OBSERVE PATIENT, WITH NOTIFICATION TO THE PHYSICIAN IF SATURATION IS 90% IN THE ABSENCE OF MORE SPECIFIC PARAMETERS FROM THE PHYSICIAN. AGENCY MAY PERFORM A RESUMPTION OF CARE VISIT FOLLOWING ANY HOSPITAL ADMISSION. RN/PUBLIC TRANSPORTATION INSPECTOR/LEATHER STRETCHER TO MONITOR CO-MORBID CONDITIONS LISTED ON THE PLAN OF CARE AND ANY NEW CONDITIONS THAT PRESENT THEMSELVES DURING THIS EPISODE TO IDENTIFY CHANGES AND INTERVENE TO MINIMIZE COMPLICATIONS.] Future Scheduled Test RISK FOR H OSPITALIZATION; RN TO ASSESS/TEACH, LEATHER STRETCHER/PUBLIC TRANSPORTATION INSPECTOR TO OBSERVE/TEACH PATIENT/CAREGIVER ON RISK FOR HOSPITALIZATION/EMERGENCY ROOM VISITS, TEACH SIGNS AND SYMPTOMS THAT PUT PATIENT AT RISK, WHEN TO NOTIFY NURSE/PHYSICIAN OF COMPLICATIONS/DECLINE, AND WHEN TO CALL 911. [code = RISK FOR HOSPITALIZATION; RN TO ASSESS/TEACH, LEATHER STRETCHER/PUBLIC TRANSPORTATION INSPECTOR TO OBSERVE/TEACH PATIENT/CAREGIVER ON RISK FOR HOSPITALIZATION/EMERGENCY ROOM VISITS, TEACH SIGNS AND SYMPTOMS THAT PUT PATIENT AT RISK, WHEN TO NOTIFY NURSE/PHYSICIAN OF COMPLICATIONS/DECLINE, AND WHEN TO CALL 911.] Future Scheduled Test MEDICATION MANAGEMENT; RN/PUBLIC TRANSPORTATION INSPECTOR/LEATHER STRETCHER TO REVIEW MEDICATIONS FOR INTERACTIONS, EFFECTIVENESS OF DRUG THERAPY, AND SIGNS/SYMPTOMS OF ADVERSE REACTIONS. MAY INSTRUCT AND REINFORCE MEDICATION TEACHING RELATED TO THE USE OF MEDICATIONS, DOSAGE, FREQUENCY, PURPOSE, SIDE EFFECTS, AND TO REPORT COMPLICATIONS. [code = MEDICATION MANAGEMENT; RN/PUBLIC TRANSPORTATION INSPECTOR/LEATHER STRETCHER TO REVIEW MEDICATIONS FOR INTERACTIONS, EFFECTIVENESS OF DRUG THERAPY, AND SIGNS/SYMPTOMS OF ADVERSE REACTIONS. MAY INSTRUCT AND REINFORCE MEDICATION TEACHING RELATED TO THE USE OF MEDICATIONS, DOSAGE, FREQUENCY, PURPOSE, SIDE EFFECTS, AND TO REPORT COMPLICATIONS.] Future Scheduled Test CARDIOVASC ULAR SYSTEM; RN TO ASSESS/TEACH, PUBLIC TRANSPORTATION INSPECTOR/LEATHER STRETCHER TO OBSERVE/TEACH RELATED TO ALTERED CARDIOVASCULAR STATUS TO MINIMIZE COMPLICATIONS AND REDUCE HOSPITALIZATION. [code = CARDIOVASCULAR SYSTEM; RN TO ASSESS/TEACH, PUBLIC TRANSPORTATION INSPECTOR/LEATHER STRETCHER TO OBSERVE/TEACH RELATED TO ALTERED CARDIOVASCULAR STATUS TO MINIMIZE COMPLICATIONS AND REDUCE HOSPITALIZATION.] Future Scheduled Test HYPERTENSI ON MANAGEMENT; RN TO ASSESS AND TEACH, PUBLIC TRANSPORTATION INSPECTOR/LEATHER STRETCHER TO OBSERVE AND TEACH WARNING SIGNS AND SYMPTOMS TO AVOID HOSPITALIZATION. [code = HYPERTENSION MANAGEMENT; RN TO ASSESS AND TEACH, PUBLIC TRANSPORTATION INSPECTOR/LEATHER STRETCHER TO OBSERVE AND TEACH WARNING SIGNS AND SYMPTOMS TO AVOID HOSPITALIZATION.] Future Scheduled Test NEUROLOGIC AL SYSTEM MANAGEMENT; RN TO ASSESS AND TEACH, LEATHER STRETCHER/PUBLIC TRANSPORTATION INSPECTOR TO OBSERVE AND TEACH RELATED TO ALTERED NEUROLOGICAL STATUS TO MINIMIZE COMPLICATIONS AND REDUCE HOSPITALIZATION. [code = NEUROLOGICAL SYSTEM MANAGEMENT; RN TO ASSESS AND TEACH, LEATHER STRETCHER/PUBLIC TRANSPORTATION INSPECTOR TO OBSERVE AND TEACH RELATED TO ALTERED NEUROLOGICAL STATUS TO MINIMIZE COMPLICATIONS AND REDUCE HOSPITALIZATION.] Future Scheduled Test CEREBRAL V ASCULAR ACCIDENT MANAGEMENT; RN/LEATHER STRETCHER/PUBLIC TRANSPORTATION INSPECTOR TO PROVIDE SKILLED TEACHING AND MANAGEMENT OF POST CEREBRAL VASCULAR ACCIDENT. [code = CEREBRAL VASCULAR ACCIDENT MANAGEMENT; RN/LEATHER STRETCHER/PUBLIC TRANSPORTATION INSPECTOR TO PROVIDE SKILLED TEACHING AND MANAGEMENT OF POST CEREBRAL VASCULAR ACCIDENT.] Future Scheduled Test SKIN INTEG RITY RN TO ASSESS AND TEACH, PUBLIC TRANSPORTATION INSPECTOR/LEATHER STRETCHER TO OBSERVE AND TEACH INTEGUMENTARY STATUS TO IDENTIFY CHANGES AND INTERVENE TO MINIMIZE COMPLICATIONS. PROVIDE SKILLED TEACHING OF GENERAL WOUND AND SKIN CARE AND PREVENTION RELATED TO POTENTIAL FOR OR ACTUAL ALTERED SKIN INTEGRITY. [code = SKIN INTEGRITY RN TO ASSESS AND TEACH, PUBLIC TRANSPORTATION INSPECTOR/LEATHER STRETCHER TO OBSERVE AND TEACH INTEGUMENTARY STATUS TO IDENTIFY CHANGES AND INTERVENE TO MINIMIZE COMPLICATIONS. PROVIDE SKILLED TEACHING OF GENERAL WOUND AND SKIN CARE AND PREVENTION RELATED TO POTENTIAL FOR OR ACTUAL ALTERED SKIN INTEGRITY.] Future Scheduled Test PAIN MANAG EMENT; RN TO ASSESS AND TEACH, LEATHER STRETCHER/PUBLIC TRANSPORTATION INSPECTOR TO OBSERVE AND TEACH AND PROVIDE EDUCATION ON PAIN MANAGEMENT TECHNIQUES. [code = PAIN MANAGEMENT; RN TO ASSESS AND TEACH, LEATHER STRETCHER/PUBLIC TRANSPORTATION INSPECTOR TO OBSERVE AND TEACH AND PROVIDE EDUCATION ON PAIN MANAGEMENT TECHNIQUES.] Future Scheduled Test DIABETES M ANAGEMENT; RN TO ASSESS AND TEACH, LEATHER STRETCHER/PUBLIC TRANSPORTATION INSPECTOR TO OBSERVE AND TEACH INSTRUCTIONS OF DIABETIC CARE TO INCLUDE: DIABETIC DIET, SKIN CARE, SIGNS AND SYMPTOMS OF HYPO/HYPERGLYCEMIA, PROPER ADMINISTRATION OF DIABETIC MEDICATION. RN/LEATHER STRETCHER/PUBLIC TRANSPORTATION INSPECTOR TO INSTRUCT ON DIABETIC FOOT CARE AND MONITOR FOR SKIN LESIONS ON LOWER EXTREMITIES. BLOOD GLUCOSE TESTING 3 X DAILY AND PRN FREQ. RN TO ASSESS AND TEACH, LEATHER STRETCHER/PUBLIC TRANSPORTATION INSPECTOR TO OBSERVE AND TEACH PATIENT/CAREGIVER ABILITY TO PERFORM AND RECORD BLOOD GLUCOSE TESTING ORDERED AND TO REPORT ABNORMAL FINDINGS TO PHYSICIAN. RN/LEATHER STRETCHER/PUBLIC TRANSPORTATION INSPECTOR MAY PERFORM BLOOD GLUCOSE TEST NEEDED. RN/LEATHER STRETCHER/PUBLIC TRANSPORTATION INSPECTOR TO REPORT TO PHYSICIAN BLOOD GLUCOSE READINGS GREATER THAN 350 OR LESS THAN 70. RN/LEATHER STRETCHER/PUBLIC TRANSPORTATION INSPECTOR TO INSTRUCT PATIENT ON IMPORTANCE OF HGBA1C MONITORING, KIDNEY FUNCTION TEST, EYE AND FOOT EXAMS. [code = DIABETES MANAGEMENT; RN TO ASSESS AND TEACH, LEATHER STRETCHER/PUBLIC TRANSPORTATION INSPECTOR TO OBSERVE AND TEACH INSTRUCTIONS OF DIABETIC CARE TO INCLUDE: DIABETIC DIET, SKIN CARE, SIGNS AND SYMPTOMS OF HYPO/HYPERGLYCEMIA, PROPER ADMINISTRATION OF DIABETIC MEDICATION. RN/LEATHER STRETCHER/PUBLIC TRANSPORTATION INSPECTOR TO INSTRUCT ON DIABETIC FOOT CARE AND MONITOR FOR SKIN LESIONS ON LOWER EXTREMITIES. BLOOD GLUCOSE TESTING 3 X DAILY AND PRN FREQ. RN TO ASSESS AND TEACH, LEATHER STRETCHER/PUBLIC TRANSPORTATION INSPECTOR TO OBSERVE AND TEACH PATIENT/CAREGIVER ABILITY TO PERFORM AND RECORD BLOOD GLUCOSE TESTING ORDERED AND TO REPORT ABNORMAL FINDINGS TO PHYSICIAN. RN/LEATHER STRETCHER/PUBLIC TRANSPORTATION INSPECTOR MAY PERFORM BLOOD GLUCOSE TEST NEEDED. RN/LEATHER STRETCHER/PUBLIC TRANSPORTATION INSPECTOR TO REPORT TO PHYSICIAN BLOOD GLUCOSE READINGS GREATER THAN 350 OR LESS THAN 70. RN/LEATHER STRETCHER/PUBLIC TRANSPORTATION INSPECTOR TO INSTRUCT PATIENT ON IMPORTANCE OF HGBA1C MONITORING, KIDNEY FUNCTION TEST, EYE AND FOOT EXAMS.] Future Scheduled Test FALL REDUC TION MANAGEMENT; RN TO ASSESS AND OBSERVE, PUBLIC TRANSPORTATION INSPECTOR/LEATHER STRETCHER TO OBSERVE FALL RISK FACTORS AND EDUCATE PATIENT/CAREGIVER ON STRATEGIES TO MINIMIZE THE RISK OF FALLING. [code = FALL REDUCTION MANAGEMENT; RN TO ASSESS AND OBSERVE, PUBLIC TRANSPORTATION INSPECTOR/LEATHER STRETCHER TO OBSERVE FALL RISK FACTORS AND EDUCATE [...] End Date/Time Encounter Type Admission Type Attending [facility] Care Department Encounter ID Discharge Date Discharge Status Discharge Condition Discharge Reason Percent Goals Met 2024-12-19 00:00:00 2025-02-16 00:00:00 Outpatient NEW ADMISSION LUISA ANTHONY FORMERLY [facility] [place] [id number]
== END 2025-02-10 13:43 | disposition home or self-care (01) ==
LOC: HO.HKASLDS 13:42
PROVIDERS: PCP Physician Assistant Medical; Visit Provider Internal Medicine Hypertension Specialist
DX: N18.5 Chronic kidney disease, stage 5 (principal)
CPT/HCPCS: 36415; 80048; 85025

== ENCOUNTER 2025-02-11 12:06 | Outpatient (AMB) | payer OTHER, SELFPAY ==
--- NOTE | 2025-02-11 12:07 | HO.NEPHOV ---
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 Accompanied by: Daughter Allergies lisinopril Allergy (Unknown, Verified 02/11/25 12:09) cough Medication List - Last Reconciled 02/11/25 by Tera Aguirre MD albuterol sulfate 90 mcg/actuation inhalation amlodipine 5 mg PO DAILY aspirin 81 mg PO DAILY bisacodyl (Dulcolax (bisacodyl)) 10 mg PO BEDTIME PRN blood sugar diagnostic (FreeStyle Lite Strips) As directed four times a day carvedilol 25 mg PO BID cholecalciferol (vitamin D3) 50 mcg PO DAILY clonidine HCl 0.1 mg PO BID dapagliflozin propanediol (Farxiga) 5 mg PO DAILY hydralazine 100 mg PO TID [insulin 62 units intradermal .after meals] insulin glargine (Lantus Solostar U-100 Insulin) 18 units subcut BEDTIME insulin lispro (Humalog U-100 Insulin) 22 units subcut .before meals peg 3350-electrolytes 236-22.74-6.74 -5.86 gram (Golytely) 240 mL PO Q10M 1 day pen needle, diabetic (BD Ultra-Fine Yuliana Pen Needle) As directed four times a day rosuvastatin 40 mg PO DAILY tamsulosin mg PO DAILY HPI Comments Details: 69 yr old man with long standing h/o HTN And DM for more than 5 years referred for CKD Creatinine was 1.2 in 2020. Creatinine has bumped up to 1.7 in June Currently on Bumex 0.5mg along with VAlsartan 320 mg 01/02/2024. 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 03/05/24 c/o Itching and rash x 3-4 weeks ;Farxiga was started 6 weeks ago. cr upto 2.98! 04/09/24 Still with itching; Off Farxiga; GAined 4 lbs ; c/o edema 06/11/24 Still has itching Has been taking Hydralazine QD instead of TID Lost 10-14 lbs with Bumex 08/06/24 No improving in Itching 09/03/24 69-year-old male seen for Chronic Kidney Disease and associated symptoms. He experiences persistent pruritus involving his eyes, scalp, arms, and legs, possibly linked to medication adjustments since the introduction of hydralazine. Attempts to modify medications have thus far provided insufficient relief for his symptoms. The patient also has a history of hypertension and diabetes mellitus with suboptimal glycemic control; his recent blood glucose was recorded at 238 mg/dL. He correlates dietary habits with blood sugar fluctuations and has been attempting to improve these. Concurrently, the patient reports peripheral edema with associated discoloration. His CKD is advancing, with a current kidney function level at an approximate GFR of 16%, a reduction from a previous measurement of 19%. The patient has brother on dialysis; his brother recently began treatment due to similar underlying conditions. These factors contribute to the patient?s concern about future renal interventions. 10/15/24 The patient is a 69-year-old male presenting with hypertension, chronic kidney disease, and anemia. Hypertension has been a persistent issue, with recent blood pressure readings of 156/80 mmHg, despite multiple antihypertensive medications including valsartan and clonidine. Previous trials with amlodipine and hydralazine were discontinued due to adverse effects such as edema and pruritus. Chronic kidney disease is attributed to long-standing diabetes, with current kidney function at approximately 14%. Anemia is suspected to be multifactorial, potentially due to gastrointestinal blood loss and decreased erythropoietin production from renal impairment. A stool test and colonoscopy are planned to investigate potential gastrointestinal bleeding. The patient will receive erythropoietin injections to address anemia related to renal insufficiency. 12/31/24 Recently hospitalized for accelerated HTN Had UE weakness- possible TIA s/p Blood transfusion Accompanied by daughter 01/14/25 History of Present Illness - The patient is a 69-year-old male presenting with chronic kidney disease management. - Chronic Kidney Disease: Prefers conventional hemodialysis. - Hypertension: Blood pressure variable, recent readings 110/62 mmHg and 143/71 mmHg, dizziness noted. - Anemia: Receiving injections every two to four weeks. - Hyperkalemia: Potassium normalized to 4.8 mmol/L. - Hyperglycemia: Blood sugar improved to 174 mg/dL. 02/11/25 Doing well. No new issues [facility] Medical History (Updated 01/14/25 @ 11:29 by Tera Aguirre MD) CKD (chronic kidney disease) Diabetes type 2, uncontrolled Essential hypertension Hypertriglyceridemia Hyperlipidemia LDL goal <100 Type 2 diabetes mellitus with diabetic polyneuropathy Cirrhosis of liver GERD (gastroesophageal reflux disease) Tubular adenoma of colon Chronic idiopathic constipation Surgical History History of penile implant History of gastric surgery H/O esophagogastroduodenoscopy Hx of colonoscopy (~10/2014) Family History Father No problems noted. Mother Esophageal cancer Maternal Grandfather Prostate cancer Diabetes Maternal Grandmother CVD (cardiovascular disease) Daughter Tubular adenoma Social History Household Members: Spouse Alcohol intake: current Alcohol intake frequency: former alcohol drinker Patient Tobacco Use Status: Former Tobacco user Physical Exam Vital Signs: Last Vital Signs Pulse 83 02/11/25 12:08 BP 122/64 02/11/25 12:08 Pulse Ox 97 02/11/25 12:08 Oxygen Delivery Method Room Air 02/11/25 12:08 BMI result Body Mass Index 27.3 Comfortable Neck supple no JVD. Lungs entry equal no rales. Heart S1-S2 heard no gallop or rub. Abdomen soft nontender. Neuro alert awake oriented. No asterixis. Extremities ; NO edema. 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 20,000 unit subcut left arm 1 mL [id number] 06/20/26 5084-8628-99 [employer] Total Dispensed Waste 1 mL 0 % Results Reviewed Nephrology Results: Hgb, (14.0-18.0) 9.4 g/dl L 02/10/25 WBC, (4.8-10.8) 3.9 X10*3/uL L 02/10/25 Plt Count, (160-400) 167 X10*3/uL 02/10/25 Sodium, (135-145) 135 mmol/L 02/10/25 Potassium, (3.3-5.1) 5.1 mmol/L 02/10/25 Chloride, (96-108) 107 mmol/L 02/10/25 Carbon Dioxide, (22-29) 19 mmol/L L 02/10/25 BUN, (9-16) 76 mg/dL H 02/10/25 Creatinine, (0.5-1.4) 5.42 mg/dL H* 02/10/25 Calcium, (8.4-10.2) 8.3 mg/dL L 02/10/25 Renal US 09/28/23 Assessment & Plan Assessment & Plan (1) CKD (chronic kidney disease): Comment: Kidney biopsy on 12/18/2023 revealed nodular mesangial/diabetic glomerulosclerosis. Moderately active interstitial nephritis with eosinophils. Moderate chronic changes including global glomerulosclerosis 35%, tubular atrophy/interstitial fibrosis 30%. Vascular sclerosis moderate with focal hyalinosis. Code(s): N18.9 - Chronic kidney disease, unspecified Category: Medical Plan: yr old man with CKD in a setting of DM and HTN Diabetic nephropathy by biopsy No evidence of obstruction based on recent imaging Added Farxiga 5 mg daily ( dec 2023) EGFR is around 11 no indication for hemodialysis today Volume status acceptable Goal is to slow the progression of renal disease Maintain BP < 130/80 and A1c < 7% Avoid nephrotoxins including NSAIDS (2) BPH w urinary obs/LUTS: Code(s): N40.1 - Benign prostatic hyperplasia with lower urinary tract symptoms; N13.8 - Other obstructive and reflux uropathy Category: Medical Plan: Follow up with Urology (3) Essential hypertension: Code(s): I10 - Essential (primary) hypertension Category: Medical Plan: Blood pressure is well controlled with the current regimen No changes were made today. Stay on low-sodium (4) Type 2 diabetes mellitus with diabetic polyneuropathy: Code(s): E11.42 - Type 2 diabetes mellitus with diabetic polyneuropathy Category: Medical Plan: Blood pressure is better controlled Keep on current regimen (5) Anemia due to chronic kidney disease: Code(s): N18.9 - Chronic kidney disease, unspecified; D63.1 - Anemia in chronic kidney disease Category: Medical Plan: Administered Retacrit units subcutaneously and tolerated well Orders: Orders Basic Metabolic Panel 3 Weeks N18.5 - Chronic kidney disease, stage 5 Complete Blood Count no Diff Today N18.5 - Chronic kidney disease, stage 5 AMB Epoetin Injection Practice Supplied Today N40.1 - Benign prostatic hyperplasia with lower urinary tract symptoms Coding Level of Care Code Est Pt Level 4 (06191) Diagnoses CKD (chronic kidney disease) N18.9 BPH w urinary obs/LUTS N40.1; N13.8 Essential hypertension I10 Type 2 diabetes mellitus with diabetic polyneuropathy E11.42 Anemia due to chronic kidney disease N18.9; D63.1
[2025-02-11 12:08] VITALS: BP 122/64; PULSE 83; O2SAT 97; BMI 27.3
--- OUTSIDE RECORDS SUMMARY | 2025-02-11 17:04 | XMS_ITS | Clinical Summary ---
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 [facility] ABD that GI at [facility] Desires Jul 22, 2021 Entered By: RASHID STEELE Comment: Next Hepatology appt., w/ Imaging at [facility] in Mid - AUG 12 Oct 14, 2021 Entered By: RASHID STEELE Comment: Per Pt., Liver Disease Stable; Not Progressed Oct 14, 2021 Entered By: RASHID STEELE Comment: Chooses Private Care for This Oct 28, 2021 Entered By: RASHID STEELE Comment: LFT's WNL OCTOBER 12 May 31, 2022 Entered By: RASHID STEELE Comment: Still Sees GI/Hepatology at [facility]; Next Appt JUN 15 May 31, 2022 Entered By: RASHID STEELE Comment: US pending at [facility] JUN 15 Dec 01, 2022 Entered By: [...] nonproliferative 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 edema, bilateral ([facility] V24, [facility] V28) 07/25/2024 Type 2 diabetes mellitus wit h diabetic peripheral angiopathy without gangrene ([facility] V24, [facility] V28) 07/25/2024 Tinea unguium 07/25/2024 Sensorineural hearing [...] Team Description 12/08/2024 Plan of Care Documentation [facility] [address] [place] [phone] 12/03/2024 5:42 PM EDT - 12/13/2024 11:45 AM EDT Hospital Encounter [facility] [address] [place] [phone] Bre Garcia DO CVA (cerebral vascular accident) ([facility] V24, [facility] V28) [I63.9] (Primary Dx) Discharge Disposition: Short [...] Medical History Medical History Date Comments Diabetes ([facility] V24, [facility] V28) Arthritis High blood pressure [...] resultswithin the time period is included. Pathologist [facility] [place] Adenovirus Detection by PCR Not Detected Not Detected LAB MICROBIOLOGY METHOD 12/13/2024 12:22 PM EDT [facility] Influenza A PCR Not Detected Not Detected LAB MICROBIOLOGY METHOD 12/13/2024 12:22 PM EDT [facility] Influenza B PCR Not Detected Not Detected LAB MICROBIOLOGY METHOD 12/13/2024 12:22 PM EDT [facility] Coronavirus 229E Not Detected Not Detected LAB MICROBIOLOGY METHOD 12/13/2024 12:22 PM EDT [facility] Coronavirus HKU1 Not Detected Not Detected LAB MICROBIOLOGY METHOD 12/13/2024 12:22 PM EDT [facility] Coronavirus OC43 Not Detected Not Detected LAB MICROBIOLOGY METHOD 12/13/2024 12:22 PM EDT [facility] Coronavirus NL63 Not Detected Not Detected LAB MICROBIOLOGY METHOD 12/13/2024 12:22 PM EDT [facility] Parainfluenza Virus 1 Not Detected Not Detected LAB MICROBIOLOGY METHOD 12/13/2024 12:22 PM EDT [facility] Parainfluenza Virus 2 Not Detected Not Detected LAB MICROBIOLOGY METHOD 12/13/2024 12:22 PM EDT [facility] Parainfluenza Virus 3 Not Detected Not Detected LAB MICROBIOLOGY METHOD 12/13/2024 12:22 PM EDT [facility] Parainfluenza Virus 4 Not Detected Not Detected LAB MICROBIOLOGY METHOD 12/13/2024 12:22 PM EDT [facility] RSV PCR Not Detected Not Detected LAB MICROBIOLOGY METHOD 12/13/2024 12:22 PM EDT [facility] Human Metapneumovirus A and B Not Detected Not Detected LAB MICROBIOLOGY METHOD 12/13/2024 12:22 PM EDT [facility] Rhinovirus/Entero virus Not Detected Not Detected LAB MICROBIOLOGY METHOD 12/13/2024 12:22 PM EDT [facility] Bordetella pertussis Not Detected Not Detected LAB MICROBIOLOGY METHOD 12/13/2024 12:22 PM EDT [facility] Bordetella parapertussis Not Detected Not Detected LAB MICROBIOLOGY METHOD 12/13/2024 12:22 PM EDT [facility] Mycoplasma pneumo by PCR Not Detected Not Detected LAB MICROBIOLOGY METHOD 12/13/2024 12:22 PM EDT [facility] Chlamydia pneumoniae Not Detected Not Detected LAB MICROBIOLOGY METHOD 12/13/2024 12:22 PM EDT [facility] SARS COV-2 Not Detected Not Detected LAB MICROBIOLOGY METHOD 12/13/2024 12:22 PM EDT [facility] Swab Both anterior nares / Unknown Non-blood Collection / Unknown 12/13/2024 10:28 AM EDT 12/13/2024 11:25 AM EDT [facility] - 12/13/2024 12:22 PM EDT Testing was performed using the [employer] Respiratory Pathogen PCR Assay. All results must [...] MICROBIOLOGY - GENERA L ORDERABLES Final Result [facility] [address] [place] [address], * (ABNORMAL) Complete blood count (12/13/2024 10:28 AM EDT) Only the most recent of4 resultswithin the time period is included. WBC 15.0(H) 4.8 - 10.8 K/mcL LAB HEMETOLOGY METHOD 12/13/2024 11:31 AM EDT [facility] RBC 2.60(L) 4.50 - 5.50 M/mcL LAB HEMETOLOGY METHOD 12/13/2024 11:31 AM EDT [facility] Hemoglobin 8.2(L) 13.5 - 17.5 g/dL LAB HEMETOLOGY METHOD 12/13/2024 11:31 AM EDT [facility] Hematocrit 25.0(L) 42.0 - 54.0 % LAB HEMETOLOGY METHOD 12/13/2024 11:31 AM EDT [facility] MCV 96.5 79.0 - 98.0 FL LAB HEMETOLOGY METHOD 12/13/2024 11:31 AM EDT [facility] MCH 31.7 27.0 - 32.0 pcg LAB HEMETOLOGY METHOD 12/13/2024 11:31 AM EDT [facility] MCHC 32.8 32.0 - 37.0 g/dL LAB HEMETOLOGY METHOD 12/13/2024 11:31 AM EDT [facility] RDW 11.7 11.0 - 15.0 % LAB HEMETOLOGY METHOD 12/13/2024 11:31 AM EDT [facility] Platelets 311 130 - 400 K/mcL LAB HEMETOLOGY METHOD 12/13/2024 11:31 AM EDT [facility] MPV 10.7 7.0 - 11.0 FL LAB HEMETOLOGY METHOD 12/13/2024 11:31 AM EDT [facility] NRBC 0.0 <1.0 % LAB HEMETOLOGY METHOD 12/13/2024 11:31 AM EDT [facility] NRBC Absolute 0.00 <0.10 K/mcL LAB HEMETOLOGY METHOD 12/13/2024 11:31 AM EDT [facility] Blood Venous blood specimen / Unknown Venipuncture / Unknown 12/13/2024 10:28 AM EDT 12/13/2024 11:25 AM EDT Shira Holliday NP LAB BLOOD ORDERABLES Final Result [facility] [address] [place] [address], [place] [phone] * Type and screen (12/13/2024 10:28 AM EDT) ABO Group O 12/13/2024 1:07 PM EDT [facility] Rh Type Positive 12/13/2024 1:07 PM EDT [facility] Antibody Screen Negative 12/13/2024 1:07 PM EDT [facility] Blood Venous blood specimen / Unknown Venipuncture / Unknown 12/13/2024 10:28 AM EDT 12/13/2024 11:25 AM EDT Shira Holliday NP LAB BLOOD BANK TEST ORDERABLES Final Result [facility] [address] [place] [address], [place] [phone] * (ABNORMAL) Magnesium (12/13/2024 10:28 AM EDT) Only the most recent of2 resultswithin the time period is included. Magnesium 1.7(L) 1.9 - 2.6 mg/dL LAB CHEMISTRY METHOD 12/13/2024 11:46 AM [facility] Blood Venous blood specimen / Unknown Venipuncture / Unknown 12/13/2024 10:28 AM EDT 12/13/2024 11:25 AM EDT Shira Holliday NP LAB BLOOD ORDERABLES Final Result [facility] [address] [place] [address], * (ABNORMAL) Basic metabolic panel (12/13/2024 10:28 AM EDT) Only the most recent of2 resultswithin the time period is included. Sodium 134 133 - 145 mmol/L LAB CHEMISTRY METHOD 12/13/2024 11:51 AM [facility] Potassium 4.8 3.5 - 5.5 mmol/L LAB CHEMISTRY METHOD 12/13/2024 11:51 AM [facility] Chloride 105 96 - 110 mmol/L LAB CHEMISTRY METHOD 12/13/2024 11:51 AM [facility] CO2 19(L) 21 - 32 mmol/L LAB CHEMISTRY METHOD 12/13/2024 11:51 AM [facility] Anion Gap 10 3 - 11 LAB CHEMISTRY METHOD 12/13/2024 11:51 AM [facility] Glucose 141(H) 70 - 100 mg/dL LAB CHEMISTRY METHOD 12/13/2024 11:51 AM [facility] BUN 80(H) 5 - 25 mg/dL LAB CHEMISTRY METHOD 12/13/2024 11:51 AM [facility] Creatinine 5.52(H) 0.70 - 1.30 mg/dL LAB CHEMISTRY METHOD 12/13/2024 11:51 AM [facility] eGFR 11(L) >=60 mL/min/1. 73m2 LAB CHEMISTRY METHOD 12/13/2024 11:51 AM EDT [facility] Comment:Calculation based on the Chronic Kidney Disease Epidemiology Collaboration (CKD-EPI) equation refit without adjustment for race. BUN/Creatinine Ratio 14.5 LAB CHEMISTRY METHOD 12/13/2024 11:51 AM EDT [facility] Calcium 8.3(L) 8.5 - 10.5 mg/dL LAB CHEMISTRY METHOD 12/13/2024 11:51 AM EDT [facility] Blood Venous blood specimen / Unknown Venipuncture / Unknown 12/13/2024 10:28 AM EDT 12/13/2024 11:25 AM EDT Shira Holliday NP LAB BLOOD ORDERABLES Final Result Performing Organization Address City/[facility]/ZIP Co de Phone Number [facility] [address] [place] [address], [place] [phone] * (ABNORMAL) POCT Glucose, blood (12/13/2024 10:01 AM EDT) Only the most recent of40 resultswithin the time period is included. [facility] Signature Glucose POCT 157(H) 70 - 100 mg/dL 12/13/2024 10:02 AM EDT [facility] Blood Capillary blood specimen / Unknown 12/13/2024 10:01 AM EDT 12/13/2024 10:03 AM EDT us Bre Garcia DO LAB POINT OF CARE TEST DOCKED DEVICE UNSOLICITED RESULTS Final Result [facility] [address] [place] [address], [place] [phone] * CT Head Stroke wo Contrast (12/13/2024 [...] Signed Date: 12/13/2024 08:46 ET Workstation ID: [id number] Transcribed By: Self Edit Transcribed Date: 12/13/2024 [...] Signed Date: 12/13/2024 08:46 ET Workstation ID: [id number] Transcribed By: Self Edit Transcribed Date: 12/13/2024 08:43 ET Shira Holliday NP IMG CT PROCEDURES Fi nal Result * ECG 12 lead (12/13/2024 7:53 AM EDT) Ventricular Rate ECG 103 BPM GEMUSE Atrial Rate 103 BPM GEMUSE P-R Interval 176 ms GEMUSE QRS Duration 82 ms GEMUSE Q-T Interval 310 ms GEMUSE QTc 406 ms GEMUSE P Wave [place] 48 degrees GEMUSE R [place] 3 degrees GEMUSE T [place] 73 degrees GEMUSE ECG Interpretation Sinus tachycardia [...] LAB CHEMISTRY METHOD 12/12/2024 5:48 AM EDT [facility] Potassium 5.3 3.5 - 5.5 mmol/L LAB CHEMISTRY METHOD 12/12/2024 5:48 AM EDT [facility] Chloride 105 96 - 110 mmol/L LAB CHEMISTRY METHOD 12/12/2024 5:48 AM [facility] CO2 21 21 - 32 mmol/L LAB CHEMISTRY METHOD 12/12/2024 5:48 AM [facility] Anion Gap 8 3 - 11 LAB CHEMISTRY METHOD 12/12/2024 5:48 AM [facility] Glucose 261(H) 70 - 100 mg/dL LAB CHEMISTRY METHOD 12/12/2024 5:48 AM [facility] BUN 84(H) 5 - 25 mg/dL LAB CHEMISTRY METHOD 12/12/2024 5:48 AM [facility] Creatinine 5.65(H) 0.70 - 1.30 mg/dL LAB CHEMISTRY METHOD 12/12/2024 5:48 AM [facility] eGFR 10(L) >=60 mL/min/1. 73m2 LAB CHEMISTRY METHOD 12/12/2024 5:48 AM [facility] Comment:Calculation based on the Chronic Kidney Disease Epidemiology Collaboration (CKD-EPI) equation refit without adjustment for race. BUN/Creatinine Ratio 14.9 LAB CHEMISTRY METHOD 12/12/2024 5:48 AM [facility] Calcium 7.9(L) 8.5 - 10.5 mg/dL LAB CHEMISTRY METHOD 12/12/2024 5:48 AM [facility] AST (SGOT) 19 10 - 42 unit/L LAB CHEMISTRY METHOD 12/12/2024 5:48 AM [facility] ALT (SGPT) 35 10 - 60 unit/L LAB CHEMISTRY METHOD 12/12/2024 5:48 AM [facility] Alkaline Phosphatase 157(H) 42 - 121 unit/L LAB CHEMISTRY METHOD 12/12/2024 5:48 AM [facility] Total Protein 5.0(L) 6.0 - 8.0 g/dL LAB CHEMISTRY METHOD 12/12/2024 5:48 AM [facility] Albumin 2.0(L) 3.2 - 5.0 g/dL LAB CHEMISTRY METHOD 12/12/2024 5:48 AM EDT [facility] Total Bilirubin 0.3 0.0 - 1.4 mg/dL LAB CHEMISTRY METHOD 12/12/2024 5:48 AM EDT [facility] Blood Venous blood specimen / Unknown Venipuncture / Unknown 12/12/2024 5:04 AM EDT 12/12/2024 5:20 AM EDT Shelly SUBRAMANIAN LAB BLOOD ORDERABLES Final R esult [facility] [address] [place] [address], [place] [phone] * Iron (12/10/2024 5:19 AM EDT) Iron 64 50 - 160 mcg/dL LAB CHEMISTRY METHOD 12/10/2024 2:35 PM EDT [facility] Blood Venous blood specimen / Unknown Venipuncture / Unknown 12/10/2024 5:19 AM EDT 12/10/2024 6:51 AM EDT us Shelly SUBRAMANIAN LAB BLOOD ORDERABLES Final R esult [facility] [address] [place] [address], [place] [phone] * Ferritin (12/10/2024 5:19 AM EDT) Ferritin 328 26 - 388 ng/mL LAB CHEMISTRY METHOD 12/10/2024 2:35 PM EDT [facility] Blood Venous blood specimen / Unknown Venipuncture / Unknown 12/10/2024 5:19 AM EDT 12/10/2024 6:51 AM EDT us Shelly SUBRAMANIAN LAB BLOOD ORDERABLES Final R esult [facility] [address] [place] [address], [place] [phone] * XR Chest 2 Views (12/09/2024 2:20 PM EDT) Anatomical Region Laterality Modality Body Radiographic Adelaide ging 12/09/2024 2:31 PM EDT Impressions 12/09/2024 2:32 PM EDT Impression: Mild bibasilar subsegmental atelectasis or scar. Telerad MORIS ([id number]) -------- FINAL REPORT -------- Dictated By: Emily Hernandez Dictated Date: 12/09/2024 14:31 ET Assigned Physician: Emily Hernandez Reviewed and Electronically Signed By: Emily Hernandez Signed Date: 12/09/2024 14:32 ET Workstation ID: [id number] Transcribed By: Self Edit Transcribed Date: 12/09/2024 [...] bibasilar subsegmental atelectasis or scar. Telesmiley SUBRAMANIAN ([id number]) -------- FINAL REPORT -------- Dictated By: Emily Hernandez Dictated Date: 12/09/2024 14:31 ET Assigned Physician: Emily Hernandez Reviewed and Electronically Signed By: Emily Hernandez Signed Date: 12/09/2024 14:32 ET Workstation ID: [id number] Transcribed By: Self Edit Transcribed Date: 12/09/2024 14:31 ET us Shelly SUBRAMANIAN IMG XR PROCEDURES Final Resu lt * (ABNORMAL) Urinalysis with reflex microscopic and culture (12/09/2024 1:59 PM EDT) Specific [place] Urine 1.015 1.003 - 1.030 LAB URINALYSIS - AUTOMATED METHOD 12/09/2024 2:31 PM [facility] pH, Urine 6.5 5.0 - 8.0 pH LAB URINALYSIS - AUTOMATED METHOD 12/09/2024 2:31 PM [facility] Leukocytes, Urine Negative Negative LAB URINALYSIS - AUTOMATED METHOD 12/09/2024 2:31 PM [facility] Nitrite, Urine Negative Negative LAB URINALYSIS - AUTOMATED METHOD 12/09/2024 2:31 PM [facility] Protein, Urine 300(A) <=Trace mg/dL LAB URINALYSIS - AUTOMATED METHOD 12/09/2024 2:31 PM [facility] Glucose, Urine >=1000(A) Negative mg/dL LAB URINALYSIS - AUTOMATED METHOD 12/09/2024 2:31 PM [facility] Ketones, Urine Negative Negative mg/dL LAB URINALYSIS - AUTOMATED METHOD 12/09/2024 2:31 PM [facility] Urobilinogen , Urine 1.0 0.2 - 1.0 mg/dL LAB URINALYSIS - AUTOMATED METHOD 12/09/2024 2:31 PM EDT [facility] Bilirubin, Urine Negative Negative LAB URINALYSIS - AUTOMATED METHOD 12/09/2024 2:31 PM EDT [facility] Blood, Urine Negative Negative LAB URINALYSIS - AUTOMATED METHOD 12/09/2024 2:31 PM EDT [facility] RBC, Urine 5.4(H) 0 - 4 /HPF LAB URINALYSIS - AUTOMATED METHOD 12/09/2024 2:31 PM EDT [facility] WBC, Urine 1.3 0 - 4 /HPF LAB URINALYSIS - AUTOMATED METHOD 12/09/2024 2:31 PM EDT [facility] Squamous Epithelial, Urine 17 0 - 60 /LPF LAB URINALYSIS - AUTOMATED METHOD 12/09/2024 2:31 PM EDT [facility] Bacteria, Urine Negative Negative /HPF LAB URINALYSIS - AUTOMATED METHOD 12/09/2024 2:31 PM T [facility] Hyaline Casts, Urine 1.2 0 - 3 /LPF LAB URINALYSIS - AUTOMATED METHOD 12/09/2024 2:31 PM T [facility] Urine Urine specimen obtained by clean catch procedure / Unknown Non-blood Collection / Unknown 12/09/2024 1:59 PM EDT 12/09/2024 2:24 PM EDT us Shelly SUBRAMANIAN LAB URINE ORDERABLES Final R esult [facility] [address] [place] [address], * Can urine culture tube (12/09/2024 1:59 PM EDT) Extra Tube Hold for add-ons. 12/09/2024 4:01 PM EDT [facility] Comment:Auto resulted. Urine Urine specimen obtained by clean catch procedure / Unknown Non-blood Collection / Unknown 12/09/2024 1:59 PM EDT 12/09/2024 2:24 PM EDT Shelly Alexandre PA LAB URINE ORDERABLES Final R esult Performing Organization Address City/[facility]/ZIP Co de Phone Number [facility] [address] [place] [address], [place] [phone] * (ABNORMAL) Phosphorus (12/09/2024 5:30 AM EDT) Phosphorus 4.7(H) 2.5 - 4.5 mg/dL LAB CHEMISTRY METHOD 12/09/2024 7:09 AM EDT [facility] Blood Venous blood specimen / Unknown Venipuncture / Unknown 12/09/2024 5:30 AM EDT 12/09/2024 6:05 AM EDT Shira Holliday NP LAB BLOOD ORDERABLES Final Result Performing Organization Address [facility]/ZIP Co de Phone Number [facility] [address] [place] [address], * (ABNORMAL) CBC auto differential (12/04/2024 6:05 AM EDT) WBC 4.6(L) 4.8 - 10.8 K/[facility] LAB HEMETOLOGY METHOD 12/04/2024 6:57 AM EDT [facility] RBC 2.40(L) 4.50 - 5.50 M/[facility] LAB HEMETOLOGY METHOD 12/04/2024 6:57 AM EDT [facility] Hemoglobin 7.6(L) 13.5 - 17.5 g/dL LAB HEMETOLOGY METHOD 12/04/2024 6:57 AM EDT [facility] Hematocrit 23.5(L) 42.0 - 54.0 % LAB HEMETOLOGY METHOD 12/04/2024 6:57 AM [facility] MCV 96.7 79.0 - 98.0 FL LAB HEMETOLOGY METHOD 12/04/2024 6:57 AM [facility] MCH 31.3 27.0 - 32.0 pcg LAB HEMETOLOGY METHOD 12/04/2024 6:57 AM [facility] MCHC 32.3 32.0 - 37.0 g/dL LAB HEMETOLOGY METHOD 12/04/2024 6:57 AM [facility] RDW 12.2 11.0 - 15.0 % LAB HEMETOLOGY METHOD 12/04/2024 6:57 AM [facility] Platelets 180 130 - 400 K/mcL LAB HEMETOLOGY METHOD 12/04/2024 6:57 AM [facility] MPV 10.5 7.0 - 11.0 FL LAB HEMETOLOGY METHOD 12/04/2024 6:57 AM [facility] NRBC 0.0 <1.0 % LAB HEMETOLOGY METHOD 12/04/2024 6:57 AM [facility] NRBC Absolute 0.00 <0.10 K/mcL LAB HEMETOLOGY METHOD 12/04/2024 6:57 AM [facility] Neutrophils Relative 51.8 % LAB HEMETOLOGY METHOD 12/04/2024 6:57 AM [facility] Lymphocytes Relative 21.4 % LAB HEMETOLOGY METHOD 12/04/2024 6:57 AM [facility] Monocytes Relative 16.8 % LAB HEMETOLOGY METHOD 12/04/2024 6:57 AM [facility] Eosinophils Relative 8.9 % LAB HEMETOLOGY METHOD 12/04/2024 6:57 AM [facility] Basophils Relative 0.4 % LAB HEMETOLOGY METHOD 12/04/2024 6:57 AM EDT [facility] Immature Granulocytes Relative 0.7 % LAB HEMETOLOGY METHOD 12/04/2024 6:57 AM EDT [facility] Neutrophils Absolute 2.38 1.50 - 7.00 K/mcL LAB HEMETOLOGY METHOD 12/04/2024 6:57 AM EDT [facility] Lymphocytes Absolute 0.98(L) 1.00 - 5.00 K/mcL LAB HEMETOLOGY METHOD 12/04/2024 6:57 AM EDT [facility] Monocytes Absolute 0.77 0.20 - 1.00 K/mcL LAB HEMETOLOGY METHOD 12/04/2024 6:57 AM EDT [facility] Eosinophils Absolute 0.41 0.00 - 0.50 K/mcL LAB HEMETOLOGY METHOD 12/04/2024 6:57 AM EDT [facility] Basophils Absolute 0.02 0.00 - 0.20 K/mcL LAB HEMETOLOGY METHOD 12/04/2024 6:57 AM EDT [facility] Immature Granulocytes Absolute 0.03 0.00 - 0.03 K/mcL LAB HEMETOLOGY METHOD 12/04/2024 6:57 AM EDT [facility] Blood Venous blood specimen / Unknown Venipuncture / Unknown 12/04/2024 6:05 AM EDT 12/04/2024 6:32 AM EDT us [place] SUBRAMANIAN LAB BLOOD ORDERABLES Final Re sult [facility] [address] [place] [address], * Prothrombin time with INR (12/04/2024 6:05 AM EDT) Protime 11.7 10.6 - 13.9 sec LAB COAGULATION METHOD 12/04/2024 6:56 AM EDT [facility] INR 0.9 LAB COAGULATION METHOD 12/04/2024 6:56 AM EDT [facility] Blood Venous blood specimen / Unknown Venipuncture / Unknown 12/04/2024 6:05 AM EDT 12/04/2024 6:31 AM EDT us [place] SUBRAMANIAN LAB BLOOD ORDERABLES Final Re sult [facility] [address] [place] [address], from Last 3 Months Insurance [facility] [employer] Member Subscriber Plan / Payer (Ef fective 2021-Present) Name:Luisito Sam Relation to Subscriber:Self Name:Luisito Sam Payer ID:[id number] Group ID:[id number] Type:Not on file Address: [facility] [address] [phone] [facility] [employer] Advance Directives Documents on File Type Date Recorded Patient [employer] Expl anation Advance Directives and Living Will [...] currently active code status orders. 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
--- OUTSIDE RECORDS SUMMARY | 2025-02-11 17:04 | XMS_ITS | Clinical Summary ---
Author Organization [facility] Address [address] [place] [address] Care Team Providers Care Laboratory Courier Name Role Phone Anel Padgett [facility] Primary Care Provider [phone] Source Comments PLEASE NOTE, if this patient [...] mcg/actuation nasal sprayIndications:N [place] congestion Place [address] [place] in both nostrils once daily for 14 [...] large intestine 04/05/2015 Overview (04/05/2015): Seen at [facility] 03/25/2015 for abdominal pain for 3 days. Treated with Levaquin,and flagyl . CT Scan : Wall thickening with Inflammatory changes surrounding junction of descending/sigmoid colon. Pt has history of Diverticulitis S/P Partial colon Resection 2-3 years ago. History of Negative Colonoscopy early 2014 at [facility] Facet arthropathy, lumbar 02/03/2015 Overview (02/03/2015): Sees [facility]. X-ray 12/05/2014 L4-L5 facet arthropathy. Undergoing PT. X- Ray hip normal H/O hypogonadism 01/19/2015 Overview (01/19/2015): Sees Urologist S/P TURP 02/25/2014 Overview (07/01/2017): Done 10/21/2013. Sees Urologist Hood Elizondo 05/25/17 - No show to Urology F/U DM type 2 (diabetes mellitus, type 2) 07/28/2013 Overview (09/10/2013): Pt sees Endo at [facility] Hyperlipidemia 07/28/2013 GERD (gastroesophageal reflux disease) 4 [...] 11/03/2024 05/06/2024, 07/22, 02/27/2017, Additional history exists [id number] ( season) 2024 01/23/2024, 01/31/2022, 04/02/2021, Additional [...] complication, with long-term current use of insulin ([facility]) Hypertension, unspecified type LIPID PANEL Routine 05/06/2024 1:56 PM EST Encounter to establish care Controlled type 2 diabetes mellitus without complication, with long-term current use of insulin ([facility]) Hypertension, unspecified type MICROALBUMIN/CREATININ E RATIO, URINE, RANDOM Routine 05/06/2024 1:56 PM EST Encounter to establish care Controlled type 2 diabetes mellitus without complication, with long-term current use of insulin ([facility]) HGBA1C W/MPG Routine 05/06/2024 1:56 PM EST Encounter to establish care Controlled type 2 diabetes mellitus without complication, with long-term current use of insulin ([facility]) HEPATITIS A,B,C PANEL Routine 02/27/2017 11:10 AM EST Multiple joint pain from Last 3 Months or Most Recently Relevant to Health Maintenance Results * (ABNORMAL) HGBA1C W/MPG (05/06/2024 1:56 PM EST) HEMOGLOBIN A1C 7.4(H) <5.7 % of total Hgb [facility] Comment: For someone without known diabetes, a [...] children. MEAN PLASMA GLUCOSE 186 mg/dL (calc) [facility] Blood Blood / Unknown 05/06/2024 1 :56 PM EST 05/06/2024 1:56 PM EST Narrative [facility] - 05/08/2024 5:49 PM EST FASTING:NO us Mary Osborne PA-C LAB - BLOOD DRAW Edited Res ult - Final Performing Organization Address [facility] Co de Phone Number [facility] [address] [address], [facility] [employer] [address] [address] * (ABNORMAL) MICROALBUMIN/CREATININE RATIO, URINE, RANDOM (05/06/2024 1:56 PM EST) CREATININE, RANDOM URINE 37 20 - 320 mg/dL [facility] [facility] MICROALBUMIN 147.9 mg/dL [facility] Comment: Verified by repeat analysis. Reference Range Not established MICROALBUMIN/CREA TININE RATIO, RANDOM URINE 3,997(H) <30 mg/g creat [facility] Comment: The ADA defines abnormalities in albumin [...] PM EST 05/06/2024 1:56 PM EST Narrative [facility] - 05/08/2024 5:49 PM EST FASTING:NO us Mary Osborne PA-C LAB URINE AMBULATORY Final Result Performing Organization Address [facility]/ZIP Co de Phone Number [facility] [address] [address], [facility] [address] [address] * (ABNORMAL) LIPID PANEL (05/06/2024 1:56 PM EST) Pathologist [facility] CHOLESTEROL, TOTAL 122 <200 mg/dL [facility] HDL CHOLESTEROL 41 > OR = 40 mg/dL [facility] TRIGLYCERIDES 174(H) <150 mg/dL [facility] LDL-CHOLESTEROL 56 99 mg/dL (calc) [facility] Comment: Reference range: <100 Desirable range <100 mg/dL for primary prevention; <70 mg/dL for patients with CHD or diabetic patients with > or = 2 CHD risk factors. LDL-C is now calculated using the Annalise calculation, which is a validated novel method providing better accuracy than the Friedewald equation in the estimation of LDL-C. Hola PHAN et al. KAUSHIK. 2013;310(19): 0381-4297 (http://education.Forrst/faq/MSK045) CHOL/HDLC RATIO 3.0 <5.0 (calc) [facility] NON-HDL CHOLESTEROL 81 <130 mg/dL (calc) [facility] Comment: For patients with diabetes plus 1 major ASCVD risk factor, treating to a non-HDL-C goal of <100 mg/dL (LDL-C of <70 mg/dL) is considered a therapeutic option. Blood Blood / Unknown 05/06/2024 1 :56 PM EST 05/06/2024 1:56 PM EST Narrative [facility] - 05/08/2024 5:49 PM EST FASTING:NO us Mary Osborne PA-C LAB - BLOOD DRAW Final Resu lt [facility] [address] [address], [facility] [address] [phone] * (ABNORMAL) COMPREHENSIVE METABOLIC PANEL (05/06/2024 1:56 PM EST) Pathologist [facility] GLUCOSE 329(H) 65 - 139 mg/dL [facility] Comment: Non-fasting reference interval UREA NITROGEN (BUN) 39(H) 7 - 25 mg/dL [facility] CREATININE (blood) 2.99(H) 0.70 - 1.35 mg/dL [facility] EGFR 22(L) > OR = 60 mL/min/1. 73m2 [facility] BUN/CREATININE RATIO 13 6 - 22 (calc) [facility] SODIUM 133(L) 135 - 146 mmol/L [facility] POTASSIUM 4.4 3.5 - 5.3 mmol/L [facility] CHLORIDE 101 98 - 110 mmol/L [facility] CARBON DIOXIDE 22 20 - 32 mmol/L [facility] CALCIUM 8.4(L) 8.6 - 10.3 mg/dL [facility] PROTEIN, TOTAL 5.8(L) 6.1 - 8.1 g/dL [facility] ALBUMIN 3.2(L) 3.6 - 5.1 g/dL [facility] GLOBULIN 2.6 1.9 - 3.7 g/dL (calc) [facility] ALBUMIN/GLOBULI N RATIO 1.2 1.0 - 2.5 (calc) [facility] BILIRUBIN, TOTAL 0.3 0.2 - 1.2 mg/dL [facility] ALKALINE PHOSPHATASE 181(H) 35 - 144 U/L [facility] AST 25 10 - 35 U/L [facility] ALT 26 9 - 46 U/L [facility] Blood Blood / Unknown 05/06/2024 1 :56 PM EST 05/06/2024 1:56 PM EST Narrative [facility] - 05/08/2024 5:49 PM EST FASTING:NO us Mary Osborne PA-C LAB - BLOOD DRAW Edited Res ult - Final [facility] [address] [address], [facility] [address] [phone] * HEPATITIS A,B,C PANEL (02/27/2017 11:10 AM [...] AM EST 02/27/2017 11:33 AM EST Narrative [facility] - 02/27/2017 4:19 PM EST [facility] [address] [place] [address] PT ID [id number] ORD# [id number] Gregor GRIFFITH LAB - BLOOD DRAW Edited Result - Final [facility] [address] [place] [address], from Last 3 Months or Most Recently Relevant to Health Maintenance Insurance [facility] [employer] [place] [address] [place] [address] PARTNERSHIP [facility] Care Teams Laboratory Courier Relationship Specialty Start Date End Date Anel Padgett FNP [address] [place] [id number] PCP - General Internal Medicine 09/05/21
== END 2025-02-11 12:25 | disposition home or self-care (01) ==
LOC: HO.HKAS 12:06
PROVIDERS: PCP Physician Assistant Medical; Visit Provider Internal Medicine Hypertension Specialist
DX: I12.9 Hypertensive chronic kidney disease with stage 1 through stage 4 chronic kidney disease, or unspecified chronic kidney disease (principal); E11.22 Type 2 diabetes mellitus with diabetic chronic kidney disease; N18.9 Chronic kidney disease, unspecified; D63.1 Anemia in chronic kidney disease; N40.1 Benign prostatic hyperplasia with lower urinary tract symptoms; N13.8 Other obstructive and reflux uropathy
CPT/HCPCS: 99214

== ENCOUNTER → 2025-02-11 12:06 | Outpatient (BNVA) | payer OTHER, SELFPAY | PROVIDERS: PCP Physician Assistant Medical; Visit Provider Internal Medicine Hypertension Specialist | DX: I12.9 Hypertensive chronic kidney disease with stage 1 through stage 4 chronic kidney disease, or unspecified chronic kidney disease (principal); E11.22 Type 2 diabetes mellitus with diabetic chronic kidney disease; E11.21 Type 2 diabetes mellitus with diabetic nephropathy; E11.42 Type 2 diabetes mellitus with diabetic polyneuropathy; N18.9 Chronic kidney disease, unspecified; D63.1 Anemia in chronic kidney disease; N40.1 Benign prostatic hyperplasia with lower urinary tract symptoms; N13.8 Other obstructive and reflux uropathy | CPT/HCPCS: 96372; 99212; Q5106 ==

== ENCOUNTER 2025-03-03 13:18 | Outpatient (REF) | payer OTHER, SELFPAY ==
--- OUTSIDE RECORDS SUMMARY | 2025-03-03 15:00 | XMS_ITS | Clinical Summary ---
Author Organization [address] [facility] Address [address] [place] [address] Phone Care Team Providers Care Ordering Box Operator Name Role Phone Rashid Steele Primary Care Provider [phone] Allergies Active Allergy Reactions Criticality Noted Date [...] CVA (cerebral vascular accident) (CMS/HCC V24, C [place]/HCC V28) 12/03/2024 Spinal stenosis of cervical region with radiculo juan 08/15/2024 Alcoholic liver disease ([facility]/HCC V24) 08/08/2024 Overview (08/08/2024): Apr 20, [...] By: RASHID STEELE Comment: GI is at [facility]; , FAX [phone] Dec 01, 2020 Entered By: RASHID STEELE Comment: [facility]. [facility]BD that [facility] Jul 22, 2021 Entered By: RASHID STEELE Comment: Next Hepatology appt., w/ Imaging at [facility] in Mid - AUG 12 Oct 14, 2021 Entered By: RASHID STEELE Comment: Per Pt., Liver Disease Stable; Not Progressed Oct 14, 2021 Entered By: RASHID STEELE Comment: Chooses Private Care for This Oct 28, 2021 Entered By: RASHID STEELE Comment: LFT's WNL OCTOBER 12 May 31, 2022 Entered By: RASHID STEELE Comment: Still Sees GI/Hepatology at [facility]; Next Appt JUN 15 May 31, 2022 Entered By: RASHID STEELE Comment: US pending at [facility] JUN 15 Dec 01, 2022 Entered By: RASHID STEELE Comment: US, Elastography Liiver DEC 13 [place]: Dec 01, 2022 Entered By: RASHID STEELE [...] nonproliferative 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 edema, bilateral ([facility] V24, [facility] V28) 07/25/2024 Type 2 diabetes mellitus wit h diabetic peripheral angiopathy without gangrene ([facility] V24, [facility] V28) 07/25/2024 Tinea [...] 12/08/2024 Plan of Care Documentation [facility] [address] [place] [phone] 12/03/2024 5:42 PM EDT - 12/13/2024 11:45 AM EDT Hospital Encounter [facility] [address] [place] [phone] Bre Garcia DO CVA (cerebral vascular accident) ([facility] V24, [facility] V28) [I63.9] (Primary [...] Medical History Medical History Date Comments Diabetes ([facility] V24, [facility] V28) Arthritis High blood pressure [...] Control Test (HGBA1C) 11/03/2024 05/06/2024 COVID-19 Vaccine ( season) 2024 01/23/2024, 01/31/2022, 04/02/2021, Additional [...] AM EDT POCT GLUCOSE BLOOD Routine 12/07/2024 7 :27 AM EDT POCT GLUCOSE BLOOD Routine 12/06/2024 [...] the time period is included. Pathologist [facility] Adenovirus Detection by PCR Not Detected Not Detected LAB MICROBIOLOGY METHOD 12/13/2024 12:22 PM EDT [facility] Influenza A PCR Not Detected Not Detected LAB MICROBIOLOGY METHOD 12/13/2024 12:22 PM EDT [facility] Influenza B PCR Not Detected Not Detected LAB MICROBIOLOGY METHOD 12/13/2024 12:22 PM EDT [facility] Coronavirus 229E Not Detected Not Detected LAB MICROBIOLOGY METHOD 12/13/2024 12:22 PM EDT [facility] Coronavirus HKU1 Not Detected Not Detected LAB MICROBIOLOGY METHOD 12/13/2024 12:22 PM EDT [facility] Coronavirus OC43 Not Detected Not Detected LAB MICROBIOLOGY METHOD 12/13/2024 12:22 PM EDT [facility] Coronavirus NL63 Not Detected Not Detected LAB MICROBIOLOGY METHOD 12/13/2024 12:22 PM EDT [facility] Parainfluenza Virus 1 Not Detected Not Detected LAB MICROBIOLOGY METHOD 12/13/2024 12:22 PM EDT [facility] Parainfluenza Virus 2 Not Detected Not Detected LAB MICROBIOLOGY METHOD 12/13/2024 12:22 PM EDT [facility] Parainfluenza Virus 3 Not Detected Not Detected LAB MICROBIOLOGY METHOD 12/13/2024 12:22 PM EDT [facility] Parainfluenza Virus 4 Not Detected Not Detected LAB MICROBIOLOGY METHOD 12/13/2024 12:22 PM EDT [facility] RSV PCR Not Detected Not Detected LAB MICROBIOLOGY METHOD 12/13/2024 12:22 PM EDT [facility] Human Metapneumovirus A and B Not Detected Not Detected LAB MICROBIOLOGY METHOD 12/13/2024 12:22 PM EDT [facility] Rhinovirus/Entero virus Not Detected Not Detected LAB MICROBIOLOGY METHOD 12/13/2024 12:22 PM EDT [facility] Bordetella pertussis Not Detected Not Detected LAB MICROBIOLOGY METHOD 12/13/2024 12:22 PM EDT [facility] Bordetella parapertussis Not Detected Not Detected LAB MICROBIOLOGY METHOD 12/13/2024 12:22 PM EDT [facility] Mycoplasma pneumo by PCR Not Detected Not Detected LAB MICROBIOLOGY METHOD 12/13/2024 12:22 PM EDT [facility] Chlamydia pneumoniae Not Detected Not Detected LAB MICROBIOLOGY METHOD 12/13/2024 12:22 PM EDT [facility] SARS COV-2 Not Detected Not Detected LAB MICROBIOLOGY METHOD 12/13/2024 12:22 PM EDT [facility] Swab Both anterior nares / Unknown Non-blood Collection / Unknown 12/13/2024 10:28 AM EDT 12/13/2024 11:25 AM EDT [facility] - 12/13/2024 12:22 PM EDT Testing was performed using the [employer] Respiratory Pathogen PCR Assay. All results must [...] MICROBIOLOGY - GENERA L ORDERABLES Final Result [facility] [address] [place] [address], * (ABNORMAL) Complete blood count (12/13/2024 10:28 AM EDT) Only the most recent of4 resultswithin the time period is included. WBC 15.0(H) 4.8 - 10.8 K/mcL LAB HEMETOLOGY METHOD 12/13/2024 11:31 AM EDT [facility] RBC 2.60(L) 4.50 - 5.50 M/mcL LAB HEMETOLOGY METHOD 12/13/2024 11:31 AM EDT [facility] Hemoglobin 8.2(L) 13.5 - 17.5 g/dL LAB HEMETOLOGY METHOD 12/13/2024 11:31 AM EDT [facility] Hematocrit 25.0(L) 42.0 - 54.0 % LAB HEMETOLOGY METHOD 12/13/2024 11:31 AM EDT [facility] MCV 96.5 79.0 - 98.0 FL LAB HEMETOLOGY METHOD 12/13/2024 11:31 AM EDT [facility] MCH 31.7 27.0 - 32.0 pcg LAB HEMETOLOGY METHOD 12/13/2024 11:31 AM EDT [facility] MCHC 32.8 32.0 - 37.0 g/dL LAB HEMETOLOGY METHOD 12/13/2024 11:31 AM EDT [facility] RDW 11.7 11.0 - 15.0 % LAB HEMETOLOGY METHOD 12/13/2024 11:31 AM EDT [facility] Platelets 311 130 - 400 K/mcL LAB HEMETOLOGY METHOD 12/13/2024 11:31 AM EDT [facility] MPV 10.7 7.0 - 11.0 FL LAB HEMETOLOGY METHOD 12/13/2024 11:31 AM EDT [facility] NRBC 0.0 <1.0 % LAB HEMETOLOGY METHOD 12/13/2024 11:31 AM EDT [facility] NRBC Absolute 0.00 <0.10 K/mcL LAB HEMETOLOGY METHOD 12/13/2024 11:31 AM EDT [facility] Blood Venous blood specimen / Unknown Venipuncture / Unknown 12/13/2024 10:28 AM EDT 12/13/2024 11:25 AM EDT Shira Holliday NP LAB BLOOD ORDERABLES Final Result [facility] [address] [place] [address], [place] [phone] * Type and screen (12/13/2024 10:28 AM EDT) ABO Group O 12/13/2024 1:07 PM EDT [facility] Rh Type Positive 12/13/2024 1:07 PM EDT [facility] Antibody Screen Negative 12/13/2024 1:07 PM EDT [facility] Blood Venous blood specimen / Unknown Venipuncture / Unknown 12/13/2024 10:28 AM EDT 12/13/2024 11:25 AM EDT Shira Holliday NP LAB BLOOD BANK TEST ORDERABLES Final Result [facility] [address] [place] [address], [place] [phone] * (ABNORMAL) Magnesium (12/13/2024 10:28 AM EDT) Only the most recent of2 resultswithin the time period is included. Magnesium 1.7(L) 1.9 - 2.6 mg/dL LAB CHEMISTRY METHOD 12/13/2024 11:46 AM [facility] Blood Venous blood specimen / Unknown Venipuncture / Unknown 12/13/2024 10:28 AM EDT 12/13/2024 11:25 AM EDT Shira Holliday NP LAB BLOOD ORDERABLES Final Result [facility] [address] [place] [address], [place] [phone] * (ABNORMAL) Basic metabolic panel (12/13/2024 10:28 AM EDT) Only the most recent of2 resultswithin the time period is included. Sodium 134 133 - 145 mmol/L LAB CHEMISTRY METHOD 12/13/2024 11:51 AM [facility] Potassium 4.8 3.5 - 5.5 mmol/L LAB CHEMISTRY METHOD 12/13/2024 11:51 AM [facility] Chloride 105 96 - 110 mmol/L LAB CHEMISTRY METHOD 12/13/2024 11:51 AM [facility] CO2 19(L) 21 - 32 mmol/L LAB CHEMISTRY METHOD 12/13/2024 11:51 AM [facility] Anion Gap 10 3 - 11 LAB CHEMISTRY METHOD 12/13/2024 11:51 AM [facility] Glucose 141(H) 70 - 100 mg/dL LAB CHEMISTRY METHOD 12/13/2024 11:51 AM [facility] BUN 80(H) 5 - 25 mg/dL LAB CHEMISTRY METHOD 12/13/2024 11:51 AM [facility] Creatinine 5.52(H) 0.70 - 1.30 mg/dL LAB CHEMISTRY METHOD 12/13/2024 11:51 AM [facility] eGFR 11(L) >=60 mL/min/1. 73m2 LAB CHEMISTRY METHOD 12/13/2024 11:51 AM EDT [facility] Comment:Calculation based on the Chronic Kidney Disease Epidemiology Collaboration (CKD-EPI) equation refit without adjustment for race. BUN/Creatinine Ratio 14.5 LAB CHEMISTRY METHOD 12/13/2024 11:51 AM EDT [facility] Calcium 8.3(L) 8.5 - 10.5 mg/dL LAB CHEMISTRY METHOD 12/13/2024 11:51 AM EDT [facility] Blood Venous blood specimen / Unknown Venipuncture / Unknown 12/13/2024 10:28 AM EDT 12/13/2024 11:25 AM EDT Shira Holliday NP LAB BLOOD ORDERABLES Final Result Performing Organization Address City/[facility]/ZIP Co de Phone Number [facility] [address] [place] [address], [place] [phone] * (ABNORMAL) POCT Glucose, blood (12/13/2024 10:01 AM EDT) Only the most recent of40 resultswithin the time period is included. [facility] Glucose POCT 157(H) 70 - 100 mg/dL 12/13/2024 10:02 AM EDT [facility] Blood Capillary blood specimen / Unknown 12/13/2024 10:01 AM EDT 12/13/2024 10:03 AM EDT Bre Garcia DO LAB POINT OF CARE TEST DOCKED DEVICE UNSOLICITED RESULTS Final Result [facility] [address] [place] [address], [place] [phone] * CT Head Stroke wo Contrast (12/13/2024 [...] Signed Date: 12/13/2024 08:46 ET Workstation ID: [id number] Transcribed By: Self Edit Transcribed Date: 12/13/2024 [...] Signed Date: 12/13/2024 08:46 ET Workstation ID: [id number] Transcribed By: Self Edit Transcribed Date: 12/13/2024 08:43 ET Shira Holliday NP IMG CT PROCEDURES Fi nal Result * ECG 12 lead (12/13/2024 7:53 AM EDT) Ventricular Rate ECG 103 BPM GEMUSE Atrial Rate 103 BPM GEMUSE P-R Interval 176 ms GEMUSE QRS Duration 82 ms GEMUSE Q-T Interval 310 ms GEMUSE QTc 406 ms GEMUSE P Wave [place] 48 degrees GEMUSE R [place] 3 degrees GEMUSE T [place] 73 degrees GEMUSE ECG Interpretation Sinus tachycardia [...] LAB CHEMISTRY METHOD 12/12/2024 5:48 AM EDT [facility] Potassium 5.3 3.5 - 5.5 mmol/L LAB CHEMISTRY METHOD 12/12/2024 5:48 AM EDT [facility] Chloride 105 96 - 110 mmol/L LAB CHEMISTRY METHOD 12/12/2024 5:48 AM [facility] CO2 21 21 - 32 mmol/L LAB CHEMISTRY METHOD 12/12/2024 5:48 AM [facility] Anion Gap 8 3 - 11 LAB CHEMISTRY METHOD 12/12/2024 5:48 AM [facility] Glucose 261(H) 70 - 100 mg/dL LAB CHEMISTRY METHOD 12/12/2024 5:48 AM [facility] BUN 84(H) 5 - 25 mg/dL LAB CHEMISTRY METHOD 12/12/2024 5:48 AM [facility] Creatinine 5.65(H) 0.70 - 1.30 mg/dL LAB CHEMISTRY METHOD 12/12/2024 5:48 AM [facility] eGFR 10(L) >=60 mL/min/1. 73m2 LAB CHEMISTRY METHOD 12/12/2024 5:48 AM [facility] Comment:Calculation based on the Chronic Kidney Disease Epidemiology Collaboration (CKD-EPI) equation refit without adjustment for race. BUN/Creatinine Ratio 14.9 LAB CHEMISTRY METHOD 12/12/2024 5:48 AM [facility] Calcium 7.9(L) 8.5 - 10.5 mg/dL LAB CHEMISTRY METHOD 12/12/2024 5:48 AM [facility] AST (SGOT) 19 10 - 42 unit/L LAB CHEMISTRY METHOD 12/12/2024 5:48 AM [facility] ALT (SGPT) 35 10 - 60 unit/L LAB CHEMISTRY METHOD 12/12/2024 5:48 AM [facility] Alkaline Phosphatase 157(H) 42 - 121 unit/L LAB CHEMISTRY METHOD 12/12/2024 5:48 AM [facility] Total Protein 5.0(L) 6.0 - 8.0 g/dL LAB CHEMISTRY METHOD 12/12/2024 5:48 AM [facility] Albumin 2.0(L) 3.2 - 5.0 g/dL LAB CHEMISTRY METHOD 12/12/2024 5:48 AM EDT [facility] Total Bilirubin 0.3 0.0 - 1.4 mg/dL LAB CHEMISTRY METHOD 12/12/2024 5:48 AM EDT [facility] Blood Venous blood specimen / Unknown Venipuncture / Unknown 12/12/2024 5:04 AM EDT 12/12/2024 5:20 AM EDT Shelly SUBRAMANIAN LAB BLOOD ORDERABLES Final R esult [facility] [address] [place] [address], [place] [phone] * Iron (12/10/2024 5:19 AM EDT) Iron 64 50 - 160 mcg/dL LAB CHEMISTRY METHOD 12/10/2024 2:35 PM EDT [facility] Blood Venous blood specimen / Unknown Venipuncture / Unknown 12/10/2024 5:19 AM EDT 12/10/2024 6:51 AM EDT Shelly SUBRAMANIAN LAB BLOOD ORDERABLES Final R esult [facility] [address] [place] [address], [place] [phone] * Ferritin (12/10/2024 5:19 AM EDT) Ferritin 328 26 - 388 ng/mL LAB CHEMISTRY METHOD 12/10/2024 2:35 PM EDT [facility] Blood Venous blood specimen / Unknown Venipuncture / Unknown 12/10/2024 5:19 AM EDT 12/10/2024 6:51 AM EDT Shelly SUBRAMANIAN LAB BLOOD ORDERABLES Final R esult [facility] [address] [place] [address], [place] [phone] * XR Chest 2 Views (12/09/2024 2:20 PM EDT) Anatomical Region Laterality Modality Body Radiographic Adelaide ging 12/09/2024 2:31 PM EDT Impressions 12/09/2024 2:32 PM EDT Impression: Mild bibasilar subsegmental atelectasis or scar. Telerad MORIS ([id number]) -------- FINAL REPORT -------- Dictated By: Emily Hernandez Dictated Date: 12/09/2024 14:31 ET Assigned Physician: Emily Hernandez Reviewed and Electronically Signed By: Emily Hernandez Signed Date: 12/09/2024 14:32 ET Workstation ID: [id number] Transcribed By: Self Edit Transcribed Date: 12/09/2024 [...] bibasilar subsegmental atelectasis or scar. Telerad MORIS ([id number]) -------- FINAL REPORT -------- Dictated By: Emily Hernandez Dictated Date: 12/09/2024 14:31 ET Assigned Physician: Emily Hernandez Reviewed and Electronically Signed By: Emily Hernandez Signed Date: 12/09/2024 14:32 ET Workstation ID: [id number] Transcribed By: Self Edit Transcribed Date: 12/09/2024 14:31 ET us Shelly SUBRAMANIAN IMG XR PROCEDURES Final Resu lt * (ABNORMAL) Urinalysis with reflex microscopic and culture (12/09/2024 1:59 PM EDT) Specific [place] Urine 1.015 1.003 - 1.030 LAB URINALYSIS - AUTOMATED METHOD 12/09/2024 2:31 PM [facility] pH, Urine 6.5 5.0 - 8.0 pH LAB URINALYSIS - AUTOMATED METHOD 12/09/2024 2:31 PM [facility] Leukocytes, Urine Negative Negative LAB URINALYSIS - AUTOMATED METHOD 12/09/2024 2:31 PM [facility] Nitrite, Urine Negative Negative LAB URINALYSIS - AUTOMATED METHOD 12/09/2024 2:31 PM [facility] Protein, Urine 300(A) <=Trace mg/dL LAB URINALYSIS - AUTOMATED METHOD 12/09/2024 2:31 PM [facility] Glucose, Urine >=1000(A) Negative mg/dL LAB URINALYSIS - AUTOMATED METHOD 12/09/2024 2:31 PM [facility] Ketones, Urine Negative Negative mg/dL LAB URINALYSIS - AUTOMATED METHOD 12/09/2024 2:31 PM [facility] Urobilinogen , Urine 1.0 0.2 - 1.0 mg/dL LAB URINALYSIS - AUTOMATED METHOD 12/09/2024 2:31 PM EDT [facility] Bilirubin, Urine Negative Negative LAB URINALYSIS - AUTOMATED METHOD 12/09/2024 2:31 PM EDT [facility] Blood, Urine Negative Negative LAB URINALYSIS - AUTOMATED METHOD 12/09/2024 2:31 PM EDT [facility] RBC, Urine 5.4(H) 0 - 4 /HPF LAB URINALYSIS - AUTOMATED METHOD 12/09/2024 2:31 PM EDT [facility] WBC, Urine 1.3 0 - 4 /HPF LAB URINALYSIS - AUTOMATED METHOD 12/09/2024 2:31 PM EDT [facility] Squamous Epithelial, Urine 17 0 - 60 /LPF LAB URINALYSIS - AUTOMATED METHOD 12/09/2024 2:31 PM EDT [facility] Bacteria, Urine Negative Negative /HPF LAB URINALYSIS - AUTOMATED METHOD 12/09/2024 2:31 PM T [facility] Hyaline Casts, Urine 1.2 0 - 3 /LPF LAB URINALYSIS - AUTOMATED METHOD 12/09/2024 2:31 PM EDT [facility] Urine Urine specimen obtained by clean catch procedure / Unknown Non-blood Collection / Unknown 12/09/2024 1:59 PM EDT 12/09/2024 2:24 PM EDT us Shelly SUBRAMANIAN LAB URINE ORDERABLES Final R esult [facility] [address] [place] [address], * Can urine culture tube (12/09/2024 1:59 PM EDT) Extra Tube Hold for add-ons. 12/09/2024 4:01 PM EDT [facility] Comment:Auto resulted. Urine Urine specimen obtained by clean catch procedure / Unknown Non-blood Collection / Unknown 12/09/2024 1:59 PM EDT 12/09/2024 2:24 PM EDT Shelly SUBRAMANIAN LAB URINE ORDERABLES Final R esult Performing Organization Address [facility]/ZIP Co de Phone Number [facility] [address] [place] [address], [place] [phone] * (ABNORMAL) Phosphorus (12/09/2024 5:30 AM EDT) Phosphorus 4.7(H) 2.5 - 4.5 mg/dL LAB CHEMISTRY METHOD 12/09/2024 7:09 AM EDT [facility] Blood Venous blood specimen / Unknown Venipuncture / Unknown 12/09/2024 5:30 AM EDT 12/09/2024 6:05 AM EDT Shira Holliday NP LAB BLOOD ORDERABLES Final Result Performing Organization Address [facility] Co de Phone Number [facility] [address] [place] [address], * (ABNORMAL) CBC auto differential (12/04/2024 6:05 AM EDT) WBC 4.6(L) 4.8 - 10.8 K/[facility] LAB HEMETOLOGY METHOD 12/04/2024 6:57 AM EDT [facility] RBC 2.40(L) 4.50 - 5.50 M/[facility] LAB HEMETOLOGY METHOD 12/04/2024 6:57 AM EDT [facility] Hemoglobin 7.6(L) 13.5 - 17.5 g/dL LAB HEMETOLOGY METHOD 12/04/2024 6:57 AM EDT [facility] Hematocrit 23.5(L) 42.0 - 54.0 % LAB HEMETOLOGY METHOD 12/04/2024 6:57 AM [facility] MCV 96.7 79.0 - 98.0 FL LAB HEMETOLOGY METHOD 12/04/2024 6:57 AM [facility] MCH 31.3 27.0 - 32.0 pcg LAB HEMETOLOGY METHOD 12/04/2024 6:57 AM [facility] MCHC 32.3 32.0 - 37.0 g/dL LAB HEMETOLOGY METHOD 12/04/2024 6:57 AM [facility] RDW 12.2 11.0 - 15.0 % LAB HEMETOLOGY METHOD 12/04/2024 6:57 AM [facility] Platelets 180 130 - 400 K/mcL LAB HEMETOLOGY METHOD 12/04/2024 6:57 AM [facility] MPV 10.5 7.0 - 11.0 FL LAB HEMETOLOGY METHOD 12/04/2024 6:57 AM [facility] NRBC 0.0 <1.0 % LAB HEMETOLOGY METHOD 12/04/2024 6:57 AM [facility] NRBC Absolute 0.00 <0.10 K/mcL LAB HEMETOLOGY METHOD 12/04/2024 6:57 AM [facility] Neutrophils Relative 51.8 % LAB HEMETOLOGY METHOD 12/04/2024 6:57 AM [facility] Lymphocytes Relative 21.4 % LAB HEMETOLOGY METHOD 12/04/2024 6:57 AM [facility] Monocytes Relative 16.8 % LAB HEMETOLOGY METHOD 12/04/2024 6:57 AM [facility] Eosinophils Relative 8.9 % LAB HEMETOLOGY METHOD 12/04/2024 6:57 AM [facility] Basophils Relative 0.4 % LAB HEMETOLOGY METHOD 12/04/2024 6:57 AM EDT [facility] Immature Granulocytes Relative 0.7 % LAB HEMETOLOGY METHOD 12/04/2024 6:57 AM EDT [facility] Neutrophils Absolute 2.38 1.50 - 7.00 K/mcL LAB HEMETOLOGY METHOD 12/04/2024 6:57 AM EDT [facility] Lymphocytes Absolute 0.98(L) 1.00 - 5.00 K/mcL LAB HEMETOLOGY METHOD 12/04/2024 6:57 AM EDT [facility] Monocytes Absolute 0.77 0.20 - 1.00 K/mcL LAB HEMETOLOGY METHOD 12/04/2024 6:57 AM EDT [facility] Eosinophils Absolute 0.41 0.00 - 0.50 K/mcL LAB HEMETOLOGY METHOD 12/04/2024 6:57 AM EDT [facility] Basophils Absolute 0.02 0.00 - 0.20 K/mcL LAB HEMETOLOGY METHOD 12/04/2024 6:57 AM EDT [facility] Immature Granulocytes Absolute 0.03 0.00 - 0.03 K/mcL LAB HEMETOLOGY METHOD 12/04/2024 6:57 AM EDT [facility] Blood Venous blood specimen / Unknown Venipuncture / Unknown 12/04/2024 6:05 AM EDT 12/04/2024 6:32 AM EDT us [place] SUBRAMANIAN LAB BLOOD ORDERABLES Final Re sult [facility] [address] [place] [address], * Prothrombin time with INR (12/04/2024 6:05 AM EDT) Protime 11.7 10.6 - 13.9 sec LAB COAGULATION METHOD 12/04/2024 6:56 AM EDT [facility] ([facility] INR 0.9 LAB COAGULATION METHOD 12/04/2024 6:56 AM EDT [facility] Blood Venous blood specimen / Unknown Venipuncture / Unknown 12/04/2024 6:05 AM EDT 12/04/2024 6:31 AM EDT us [place] SUBRAMANIAN LAB BLOOD ORDERABLES Final Re sult [facility] ([facility]) [facility] [address] [place] [address], from Last [address] 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 Care Teams Ordering Box Operator Relationship Specialty Start Date End Date Rashid Steele PA [address] [place] [address] [phone] PCP - General Internal Medicine 08/12/24
--- OUTSIDE RECORDS SUMMARY | 2025-03-03 15:00 | XMS_ITS | Clinical Summary ---
Author Organization [facility] Address [address] [place] [address] Care Team Providers Care Typewriter Ribbon Winder Name Role Phone Anel Padgett [facility] Primary Care Provider [phone] Source Comments PLEASE NOTE, if this patient [...] mcg/actuation nasal sprayIndications:N chelsea congestion Place 1 [place] in both nostrils once daily for 14 [...] 01/20/2017 Overview (01/20/2017): Colonoscopy done 11/11/14 at [facility] - small hiatus hernia with no evidence of reflux esophagitis , normal colonoscopy Endoscopy also done - DX superficial gastritis Diverticulitis of large intestine 04/05/2015 Overview (04/05/2015): Seen at [facility] 03/25/2015 for abdominal pain for 3 days. Treated with Levaquin,and flagyl . CT Scan : Wall thickening with Inflammatory changes surrounding junction of descending/sigmoid colon. Pt has history of Diverticulitis S/P Partial colon Resection 2-3 years ago. History of Negative Colonoscopy early 2014 at [facility] Facet arthropathy, lumbar 02/03/2015 Overview (02/03/2015): Sees [facility]. X-ray 12/05/2014 L4-L5 facet arthropathy. Undergoing PT. X- Ray hip normal H/O hypogonadism 01/19/2015 Overview (01/19/2015): Sees Urologist S/P TURP 02/25/2014 Overview (07/01/2017): Done 10/21/2013. Sees Urologist [facility] 05/25/17 - No show to Urology F/U DM type 2 (diabetes mellitus, type 2) 07/28/2013 Overview (09/10/2013): Pt sees Endo at [facility] Hyperlipidemia 07/28/2013 GERD (gastroesophageal reflux disease) [...] 11/03/2024 05/06/2024, 07/22, 02/27/2017, Additional history exists [id number] ( season) 2024 01/23/2024, 01/31/2022, 04/02/2021, Additional [...] Completed 07/27/2022, 07/22/2021, 12/07/2016, Additional history exists Imm-RSV (adult) Completed 04/03/2023 Alcohol and Drug Screen Completed 05/06/19, 01/15/2017, 09/30/2014 Depression Annual Screen Completed 05/06/2024 Procedures Procedure Name Priority Date/Time Associated Diagnosis Comments COMPREHENSIVE METABOLIC PANEL Routine 05/06/2024 1:56 PM EST Encounter to establish care Controlled type 2 diabetes mellitus without complication, with long-term current use of insulin ([facility]) Hypertension, unspecified type LIPID PANEL Routine 05/06/2024 1:56 PM EST Encounter to establish care Controlled type 2 diabetes mellitus without complication, with long-term current use of insulin ([facility]) Hypertension, unspecified type MICROALBUMIN/CREATININ E RATIO, URINE, RANDOM Routine 05/06/2024 1:56 PM EST Encounter to establish care Controlled type 2 diabetes mellitus without complication, with long-term current use of insulin ([facility]) HGBA1C W/MPG Routine 05/06/2024 1:56 PM EST Encounter to establish care Controlled type 2 diabetes mellitus without complication, with long-term current use of insulin ([facility]) HEPATITIS A,B,C PANEL Routine 02/27/2017 11:10 AM EST Multiple joint pain from Last 3 Months or Most Recently Relevant to Health Maintenance Results * (ABNORMAL) HGBA1C W/MPG (05/06/2024 1:56 PM EST) HEMOGLOBIN A1C 7.4(H) <5.7 % of total Hgb [facility] Comment: For someone without known diabetes, a [...] children. MEAN PLASMA GLUCOSE 186 mg/dL (calc) [facility] Blood Blood / Unknown 05/06/2024 1 :56 PM EST 05/06/2024 1:56 PM EST Narrative [facility] - 05/08/2024 5:49 PM EST FASTING:NO us Mary Osborne PA-C LAB - BLOOD DRAW Edited Res ult - Final Performing Organization Address City/[facility]/ZIP Co de Phone Number [employer] [address] [address], [employer] [address] [address] * (ABNORMAL) MICROALBUMIN/CREATININE RATIO, URINE, RANDOM (05/06/2024 1:56 PM EST) CREATININE, RANDOM URINE 37 20 - 320 mg/dL [facility] MICROALBUMIN 147.9 mg/dL [facility] Comment: Verified by repeat analysis. Reference Range Not established MICROALBUMIN/CREA TININE RATIO, RANDOM URINE 3,997(H) <30 mg/g creat [facility] Comment: The ADA defines abnormalities in albumin [...] PM EST 05/06/2024 1:56 PM EST Narrative [employer] [facility] - 05/08/2024 5:49 PM EST FASTING:NO us Mary Osborne PA-C LAB URINE AMBULATORY Final Result Performing Organization Address City/[facility]/ZIP Co de Phone Number [employer] [facility] [address] [address], [employer] [address] [address] * (ABNORMAL) LIPID PANEL (05/06/2024 1:56 PM EST) CHOLESTEROL, TOTAL 122 <200 mg/dL [employer] [facility] HDL CHOLESTEROL 41 > OR = 40 mg/dL [employer] [facility] TRIGLYCERIDES 174(H) <150 mg/dL [employer] [facility] LDL-CHOLESTEROL 56 99 mg/dL (calc) [employer] [facility] Comment: Reference range: <100 Desirable range <100 mg/dL for primary prevention; <70 mg/dL for patients with CHD or diabetic patients with > or = 2 CHD risk factors. LDL-C is now calculated using the Annalise calculation, which is a validated novel method providing better accuracy than the Friedewald equation in the estimation of LDL-C. Hola PHAN et al. KAUSHIK. 2013;310(19): 5340-3494 (http://education.Accupal/faq/EUY812) CHOL/HDLC RATIO 3.0 <5.0 (calc) [employer] [facility] NON-HDL CHOLESTEROL 81 <130 mg/dL (calc) [employer] [facility] Comment: For patients with diabetes plus 1 major ASCVD risk factor, treating to a non-HDL-C goal of <100 mg/dL (LDL-C of <70 mg/dL) is considered a therapeutic option. Blood Blood / Unknown 05/06/2024 1 :56 PM EST 05/06/2024 1:56 PM EST Narrative [employer] [facility] - 05/08/2024 5:49 PM EST FASTING:NO us Mary Osborne PA-C LAB - BLOOD DRAW Final Resu lt Performing Organization Address City/[facility]/ZIP Co de Phone Number [employer] [facility] [address] [address], [employer] [facility] [address] [place] [address] * (ABNORMAL) COMPREHENSIVE METABOLIC PANEL (05/06/2024 1:56 PM EST) GLUCOSE 329(H) 65 - 139 mg/dL [employer] [facility] Comment: Non-fasting reference interval UREA NITROGEN (BUN) 39(H) 7 - 25 mg/dL [employer] [facility] CREATININE (blood) 2.99(H) 0.70 - 1.35 mg/dL [employer] [facility] EGFR 22(L) > OR = 60 mL/min/1. 73m2 [employer] [facility] BUN/CREATININE RATIO 13 6 - 22 (calc) [employer] [facility] SODIUM 133(L) 135 - 146 mmol/L [employer] [facility] POTASSIUM 4.4 3.5 - 5.3 mmol/L [employer] [facility] CHLORIDE 101 98 - 110 mmol/L [employer] [facility] CARBON DIOXIDE 22 20 - 32 mmol/L [employer] [facility] CALCIUM 8.4(L) 8.6 - 10.3 mg/dL [employer] [facility] PROTEIN, TOTAL 5.8(L) 6.1 - 8.1 g/dL [employer] [facility] ALBUMIN 3.2(L) 3.6 - 5.1 g/dL [employer] [facility] GLOBULIN 2.6 1.9 - 3.7 g/dL (calc) [employer] [facility] ALBUMIN/GLOBULI N RATIO 1.2 1.0 - 2.5 (calc) [employer] [facility] BILIRUBIN, TOTAL 0.3 0.2 - 1.2 mg/dL [employer] [facility] ALKALINE PHOSPHATASE 181(H) 35 - 144 U/L [employer] [facility] AST 25 10 - 35 U/L [employer] [facility] ALT 26 9 - 46 U/L [employer] [facility] Blood Blood / Unknown 05/06/2024 1 :56 PM EST 05/06/2024 1:56 PM EST Narrative [employer] [facility] - 05/08/2024 5:49 PM EST FASTING:NO us Mary Osborne PA-C LAB - BLOOD DRAW Edited Res ult - Final [employer] [facility] [address] [address], [employer] [facility] [address] [place] [address] * HEPATITIS A,B,C PANEL (02/27/2017 11:10 AM EST) HEPATITIS B SURFACE ANTIBODY NEGATIVE NEGATIVE [facility] HEPATITIS B SURFACE ANTIGEN NEGATIVE NEGATIVE [facility] Comment: Over the counter supplements containing high doses of biotin may interfere with this assay. If interference is suspected, patients shoud be retested after refraining from biotin supplements for 72 hours. HEPATITIS C VIRUS DIAGNOSTIC NEGATIVE NEGATIVE [facility] HEPATITIS B CORE ANTIBODY NEGATIVE NEGATIVE [facility] HEPATITIS A ANTIBODY TOTAL NEGATIVE NEGATIVE [facility] Comment: Over the counter supplements containing high doses of biotin may interfere with this assay. If interference is suspected, patients shoud be retested after refraining from biotin supplements for 72 hours. Blood specimen (specimen) Blood / Unknown 02/27/2017 11:10 AM EST 02/27/2017 11:33 AM EST Narrative [facility] - 02/27/2017 4:19 PM EST to-[facility] [address] [place] [address] [place] [id number] ORD# [id number] Gregor GRIFFITH LAB - BLOOD DRAW Edited Result - Final [facility] [address] [place] [address], from Last 3 Months or Most Recently Relevant to Health Maintenance Insurance [facility] [employer] [facility] Care Teams Typewriter Ribbon Winder Relationship Specialty Start Date End Date Anel Padgett FNP [address] [place] [address] PCP - General Internal Medicine 09/05/21
--- OUTSIDE RECORDS SUMMARY | 2025-03-03 15:00 | XMS_ITS | Patient Health Record ---
Author Organization [facility] liance [place] [address] Care Team Providers Care Fork Lift Truck Operator Name Role Phone Anel Padgett Primary Care Provider Unavailabl e Clinical, Operations Unavailable Unavailable Kaiden Bautista Unavailable [phone] Arielle Hurtado Unavailable [phone] Allergies Allergen (clinical drug ingredient) Drug/Non Drug [...] COVID-19 Vaccine IM Unknown 04/02/2021 Administ ered [email or web address] COVID-19 Vaccine IM Unknown 06/29/2020 Administered [employer] COVID-19 Vaccine IM Unknown 07/20/2020 Administered Pneumococcal Vac (Pneumovax 23) SDV / PFS, IM Unknown 07/22/2021 Administered Problems Problem Type SNOMED Code ICD Code Onset Dates Problem Status W/U Status Risk Notes Problem Nicotine dependence (48589502) Personal history of nicotine dependence (Z87.891) Active confirmed Problem Tinea unguium (474860806) Tinea unguium (B35.1) Active confirmed Problem Overweight (622455594) Overweight (E66.3) Active confirmed Problem Tachycardia (8164263) Tachycardia, unspecified (R00.0) Active confirmed Problem Abdominal pain (finding) (76965875) Abdominal pain, unspecified site (R10.9) Active confirmed Problem Acquired trigger finger (3021702) Trigger thumb, left thumb (M65.312) Active confirmed Problem Pain in left foot (131995156936967) Pain in left foot (M79.672) Active confirmed Problem Bursitis of left shoulder (258632849675017) Bursitis of left shoulder (M75.52) Active confirmed Problem Lumbosacral spondylosis without myelopathy (42053091) Spondylosis without myelopathy or radiculopathy, lumbar region (M47.816) Active confirmed Problem Backache (520905988) Dorsalgia, unspecified (M54.9) Active confirmed Problem Pain in right foot (944004149090630) Pain in right foot (M79.671) Active confirmed Problem Folliculitis (05287267) Folliculitis (L73.9) Active confirmed Problem Arthropathy of lumbar facet joint (disorder) (860957327) Facet arthropathy, lumbar (M47.816) Active confirmed Problem Tobacco user (858925912) Cigarette nicotine dependence without complication (F17.210) Active confirmed Problem Recurrent major depression in full remission (57883979) Major depressive disorder, recurrent, in full remission (F33.42) Active confirmed Problem Cholesterolosis of gallbladder (62863317) 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) Active confirmed Problem Localized, primary osteoarthritis of the pelvic region and thigh (309334814) Unilateral primary osteoarthritis, right hip (M16.11) Active confirmed Problem Degeneration of lumbar intervertebral disc (53641781) Other intervertebral disc degeneration, lumbar region (M51.36) Active confirmed Problem Nocturia (731972068) Nocturia (R35.1) Active confirmed Problem Gastroesophageal reflux disease without esophagitis (410190815) Gastroesophageal reflux disease without esophagitis (K21.9) Active confirmed Problem Long-term current use of insulin (684617968) senior living (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 (Z79.4) Active confirmed Problem Chronic kidney disease due to hypertension (142746444983006) Hypertensive chronic kidney disease with stage 1 through stage 4 chronic kidney disease, or unspecified chronic kidney disease (I12.9) Active confirmed Problem Erectile dysfunction (disorder) (309230860) Erectile dysfunction, unspecified erectile dysfunction type (N52.9) Active confirmed Problem History of transurethral resection of prostate (196699744) S/P TURP (Z90.79) Active confirmed Problem Primary hypertension (62595349) Primary hypertension (I10) Active confirmed Problem Hyperlipidaemia (54837033) Hyperlipidemia, unspecified hyperlipidemia type (E78.5) Active confirmed Problem Shoulder joint pain (268967858) Left shoulder pain, unspecified chronicity (M25.512) Active confirmed Problem Type II diabetes mellitus without complication (214903475) Type 2 diabetes mellitus without complication, without long-term current use of insulin (E11.9) Active confirmed Problem Diabetic peripheral neuropathy associated with type 2 diabetes mellitus (5953367522740) Type 2 diabetes mellitus with diabetic neuropathy, without long-term current use of insulin (E11.40) Active confirmed Problem Chronic idiopathic constipation (43141355) Chronic idiopathic constipation (K59.04) Active confirmed Problem Secondary catara ct of both eyes, unspecified secondary cataract type (H26.40) Active confirmed Problem Lower urinary tract symptoms due to benign prostatic hypertrophy (84968138737354) Benign prostatic hyperplasia with lower urinary tract symptoms, symptom details unspecified (N40.1) Active confirmed Problem Glaucoma (09940215) Glaucoma, unspecified glaucoma type, unspecified laterality (H40.9) Active confirmed Problem Diverticulitis of colon (182669873) Diverticulitis of large intestine, unspecified bleeding status, unspecified complication status (K57.32) Active confirmed Problem Cirrhosis - non-alcoholic (916238747) Hepatic cirrhosis, unspecified hepatic cirrhosis type, unspecified whether ascites present (K74.60) Active confirmed Problem Low back pain (finding) (864630694) Low back pain, unspecified back pain laterality, unspecified chronicity, unspecified whether sciatica present (M54.50) Active confirmed Problem History of endocrine disorder (703399911) H/O hypogonadism (Z86.39) Active confirmed Vital Signs Height-cm 181.61 cm 08/25/2024 Height 71.5 in 08/25/2024 Encounters Encounter Location Date Provider Diagnosis [address] [address] 03/10/2024 Operations Clinical Folliculitis L73.9 ; Primary [...] primary osteoarthritis, right hip M16.11 ; terminal clerk (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 Z79.4 ; Low back pain, unspecified back pain laterality, unspecified chronicity, unspecified whether sciatica present M54.50 ; Hypertensive chronic kidney disease with stage 1 through stage 4 chronic kidney disease, or unspecified chronic kidney disease I12.9 and Tachycardia, unspecified R00.0 [facility] [address] [place] [address] 08/25/2024 Arielle Hurtado Folliculitis L73.9 ; Primary [...] primary osteoarthritis, right hip M16.11 ; terminal clerk (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 Z79.4 ; Low back pain, unspecified back pain laterality, unspecified chronicity, unspecified whether sciatica present M54.50 ; Hypertensive chronic kidney disease with stage 1 through stage 4 chronic kidney disease, or unspecified chronic kidney disease I12.9 and Tachycardia, unspecified R00.0 [facility] [address] [address] 09/01/2024 Kaiden Bautista [facility] [address] [place] [address] 12/19/2024 Arielle Hurtado [facility] [address] [place] [address] 12/31/2024 Arielle Hurtado Assessments Encounter Date Diagnosis (ICD Code) Assessment Notes Treatment Notes Treatment Clinical Notes Section Notes 08/25/2024 Folliculitis (ICD-10 - L73.9) 03/10/2024 Folliculitis (ICD-10 - L73.9) Problem list updated using [employer] 08/25/2024 Primary hypertension (ICD-10 - I10) 03/10/2024 Primary hypertension (ICD-10 - I10) Problem list updated using [employer] 08/25/2024 Cigarette nicotine dependence without complication (ICD-10 - F17.210) 03/10/2024 Cigarette nicotine dependence without complication (ICD-10 - F17.210) Problem list updated using [employer] 08/25/2024 Type 2 diabetes mellitus without complication, without long-term current use of insulin (ICD-10 - E11.9) 03/10/2024 Type 2 diabetes mellitus without complication, without long-term current use of insulin (ICD-10 - E11.9) Problem list updated using [employer] 08/25/2024 Hyperlipidemia, [...] E11.40) 03/10/2024 S/P TURP (ICD-10 - Z90.79) Problem list updated using [employer] 08/25/2024 S/P TURP (ICD-10 - Z90.79) 03/10/2024 H/O hypogonadism (ICD-10 - Z86.39) Problem list updated using [employer] 08/25/2024 H/O hypogonadism (ICD-10 - Z86.39) 03/10/2024 Facet arthropathy, lumbar (ICD-10 - M47.816) Problem list updated using [employer] 08/25/2024 Facet arthropathy, lumbar (ICD-10 - M47.816) 08/25/2024 Diverticulitis of large intestine, unspecified bleeding status, unspecified complication status (ICD-10 - K57.32) 03/10/2024 Diverticulitis of large intestine, unspecified bleeding status, unspecified complication status (ICD-10 - K57.32) Problem list updated using [employer] 08/25/2024 Secondary cataract of both eyes, unspecified secondary cataract type (ICD-10 - H26.40) 03/10/2024 Secondary cataract of both eyes, unspecified secondary cataract type (ICD-10 - H26.40) Problem list updated using [employer] 08/25/2024 Left shoulder pain, unspecified chronicity (ICD-10 - M25.512) 03/10/2024 Left shoulder pain, unspecified chronicity (ICD-10 - M25.512) Problem list updated using [employer] 08/25/2024 Bursitis of left shoulder (ICD-10 - M75.52) 03/10/2024 Bursitis of left shoulder (ICD-10 - M75.52) Problem list updated using [employer] 08/25/2024 Other intervertebral disc degeneration, lumbar region (ICD-10 - M51.36) 03/10/2024 Other intervertebral disc degeneration, lumbar region (ICD-10 - M51.36) Problem list updated using [employer] 08/25/2024 Spondylosis without myelopathy or radiculopathy, lumbar region (ICD-10 - M47.816) 03/10/2024 Spondylosis without myelopathy or radiculopathy, lumbar region (ICD-10 - M47.816) Problem list updated using [employer] 08/25/2024 Dorsalgia, unspecified (ICD-10 - M54.9) 03/10/2024 Dorsalgia, unspecified (ICD-10 - M54.9) Problem list updated using [employer] 08/25/2024 Chronic idiopathic constipation (ICD-10 - K59.04) 03/10/2024 Chronic idiopathic constipation (ICD-10 - K59.04) Problem list updated using [employer] 03/10/2024 Pain in right foot (ICD-10 - M79.671) Problem list updated using [employer] 08/25/2024 Pain in right foot (ICD-10 - M79.671) 03/10/2024 Pain in left foot (ICD-10 - M79.672) Problem list updated using [employer] 08/25/2024 Pain in left foot (ICD-10 - M79.672) 03/10/2024 Tinea unguium (ICD-10 - B35.1) Problem [...] 08/25/2024 Cholesterolosis of gallbladder (ICD-10 - K82.4) 03/10/2024 Abdominal pain, unspecified site (ICD-10 - R10.9) Problem list updated using [employer] 08/25/2024 Abdominal pain, unspecified site (ICD-10 - R10.9) 08/25/2024 Trigger thumb, left thumb (ICD-10 - M65.312) 03/10/2024 Trigger thumb, left thumb (ICD-10 - M65.312) Problem list updated using [employer] 08/25/2024 Benign prostatic hyperplasia with lower urinary tract symptoms, symptom details unspecified (ICD-10 - N40.1) 03/10/2024 Benign prostatic hyperplasia with lower urinary tract symptoms, symptom details unspecified (ICD-10 - N40.1) Problem list updated using [employer] 08/25/2024 Erectile dysfunction, unspecified erectile dysfunction type (ICD-10 - N52.9) 03/10/2024 Erectile dysfunction, unspecified erectile dysfunction type (ICD-10 - N52.9) Problem list updated using [employer] 08/25/2024 Nocturia (ICD-10 - R35.1) 03/10/2024 Nocturia (ICD-10 - R35.1) Problem list updated using [employer] 08/25/2024 Personal history of nicotine dependence (ICD-10 - Z87.891) 03/10/2024 Personal history of nicotine dependence (ICD-10 - Z87.891) Problem list updated using [employer] 03/10/2024 Overweight (ICD-10 - E66.3) Problem list updated using [employer] 08/25/2024 Overweight (ICD-10 - E66.3) 03/10/2024 Glaucoma, unspecified glaucoma type, unspecified laterality (ICD-10 - H40.9) Problem list updated using [employer] 08/25/2024 Glaucoma, unspecified glaucoma type, unspecified laterality (ICD-10 - H40.9) 03/10/2024 Major depressive disorder, recurrent, in full remission (ICD-10 - F33.42) Problem list updated using [employer] 08/25/2024 Major depressive disorder, recurrent, in full remission (ICD-10 - F33.42) 03/10/2024 Unilateral primary osteoarthritis, right hip (ICD-10 - M16.11) Problem list updated using [employer] 08/25/2024 Unilateral primary osteoarthritis, right hip (ICD-10 - M16.11) 03/10/2024 terminal clerk (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 (ICD-10 - Z79.4) Problem list updated using [employer] 08/25/2024 terminal clerk (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 (ICD-10 - Z79.4) [...] I12.9) 03/10/2024 Tachycardia, unspecified (ICD-10 - R00.0) Problem list updated using [employer] 08/25/2024 Tachycardia, unspecified (ICD-10 - R00.0) Plan Of Treatment No Information Insurance Providers Payer Name Payer Address Payer Phone Subscriber Number Group Number Insured Name Patient Relationship to Insured Coverage Start Date Coverage End Date [facility] [place] [employer] ([id number]) [address] [facility] [address] [place] [address] [id number] [place] Rogers Self - patient is the insured [id number] [phone]
[2025-03-03 17:48] LABS: Hemoglobin 8.3 g/dl (14.0-18.0)
[2025-03-03 17:49] LABS: Hematocrit 28.0 % (42.0-52.0); Hemoglobin 8.3 g/dl (14.0-18.0); Mean Corpuscular HGB Conc 29.6 g/dl (31.0-36.0); Mean Corpuscular Hemoglobin 29.6 pg (27.0-33.0); Mean Corpuscular Volume 100.0 fL (80.0-98.0); NRBC Abs Auto 0.000 X10*3/uL (0.0-0.012); NRBC Pct Auto 0.0 /100WBC (0.0-0.2); Platelet Count 204 X10*3/uL (160-400); Red Blood Count 2.80 X10*6/uL (4.60-5.80); White Blood Count 3.9 X10*3/uL (4.8-10.8)
[2025-03-03 18:24] LABS: Anion Gap 14 (12-20); Blood Urea Nitrogen 70 mg/dL (9-16); Calcium 8.0 mg/dL (8.4-10.2); Carbon Dioxide 17 mmol/L (22-29); Chloride 107 mmol/L (96-108); Estimated Glomerular Filt Rate 10; Potassium 4.8 mmol/L (3.3-5.1); Sodium 133 mmol/L (135-145)
--- OUTSIDE RECORDS SUMMARY | 2025-04-16 19:00 | XMS_ITS | Clinical Summary ---
Author Organization Unknown Care Team Providers Care Occupational Health Manager Name Role Phone MAMADOU SUBRAMANIAN, RASHID Unavailable Unavailable MATEUS PROVIDER CONTRACTING CONSULTANT, JARED Unavailable Unavailable CHRISTOS PT, ESVIN Unavailable Unavailable LENGIEZA OT, RINA Unavailable Unavailable ASHUT[facility]H INDUSTRY OPERATIONS INVESTIGATOR, SHAY Unavailable Unavailable CONDINO ILANA/RUBI, MARTINA Unavailable Unav ottoniel ANTHONY RN, LUISA Unavailable Unavailable Payers Payer Name Policy Type Policy Number Effective Date Expira tion Date [facility].OPTUM.VACCN.PDGM.C.AUTH Problems Condition Name Condition Details Condition Category [...] DIZZINESS AND GIDDINESS Active 04 00:00: 00 CORRECTION (CURRENT) USE OF ORAL HYPOGLYCEMIC DRUGS Active 12-19 00:00: 00 CORRECTION (CURRENT) USE OF INSULIN Active 12-19 00:00: 00 CORRECTION (CURRENT) USE OF ASPIRIN Active 12-19 00:00: [...] 5 mg tablet 11-19 00:00: 00 Yes [id number] DIABETES 1 tablet DAILY 1 tablet DAILY (route: oral) Med Classific ation: Endocrine clonidine HCl 0.1 mg tablet 11-15 00:00: 00 01-28 23:59 :00 No [id number] HTN Per instruc tions TWICE DAILY Per instructio ns TWICE DAILY (route: oral) Med Classific ation: Cardiovas cular Therapy Agents aspirin 81 mg tablet 12-19 00:00: 00 Yes [id number] BLOOD CLOT PREVENTION 1 tablet DAILY 1 tablet DAILY (route: oral) Med Classific ation: Hematolog ical Agents carvedilol 25 mg tablet 12-19 00:00: 00 Yes [id number] HTN 1 tablet 2 TIMES DAILY 1 tablet 2 TIMES DAILY (route: oral) Med Classific ation: Cardiovas cular Therapy Agents hydralazine 100 mg tablet 12-19 00:00: 00 01-28 23:59 :00 No [id number] HTN 1 tablet 3 TIMES DAILY 1 tablet 3 TIMES DAILY (route: oral) Med Classific ation: Cardiovas cular Therapy Agents insulin glargine (U-100) 100 unit/mL (3 mL) subcutaneou s pen 12-19 00:00: 00 01-07 23:59 :00 No [id number] DIABETES 18 unit BEDTIME 18 unit BEDTIME (route: subcutaneo us) Med Classific ation: Endocrine insulin lispro (U-100) 100 unit/mL subcutaneou s pen 12-19 00:00: 00 Yes [id number] DIABETES 3-13 unit 3 TIMES DAILY 3-13 unit 3 TIMES DAILY (route: subcutaneo us) Med Classific ation: Endocrine rosuvastati n 40 mg tablet 12-19 00:00: 00 Yes [id number] CHOLESTEROL 1 tablet BEDTIME 1 tablet BEDTIME (route: oral) Med Classific ation: Cardiovas cular Therapy Agents tamsulosin 0.4 mg capsule 12-19 00:00: 00 Yes [id number] BPH 1 capsule BEDTIME 1 capsule BEDTIME (route: oral) Med Classific ation: Genitouri nary Therapy insulin glargine (U-100) 100 unit/mL (3 mL) subcutaneou s pen 16 00:00: 00 Yes [id number] DIABETES 15 unit BEDTIME 15 unit BEDTIME (route: subcutaneo us) Med Classific ation: Endocrine Lidocaine Pain Relief 4 % topical patch 9-17 00:00: 00 Yes [id number] PAIN 1 adhesiv e patch, medicat ed DAILY 1 adhesive patch, medicated DAILY (route: topical) Med Classific ation: Dermatolo gical clonidine HCl 0.1 mg tablet 2024-04 0-08 00:00: 00 Yes [id number] HTN 1 tablet DAILY 1 tablet DAILY (route: oral) Med Classific ation: Cardiovas cular Therapy Agents hydralazine 100 mg tablet 2024-04 008 00:00: 00 Yes [id number] HTN 1 tablet 2 TIMES DAILY 1 tablet 2 TIMES DAILY (route: oral) Med Classific ation: Cardiovas cular Therapy Agents Vital Signs Vital Name Observation Time Observation Value Commen ts Temperature 2025-02-26 11:34:00.000 97 [degF] Temperature 2025-02-18 10:39:00.000 97.2 [degF] Pulse 2025-02-26 11:34:00.000 84 /min Pulse 2025-02-18 10:39:00.000 83 /min O2 Saturation (%) 2025-02-26 11:34:00.000 97 % O2 Saturation (%) 2025-02-18 10:39:00.000 96 % Respirations 2025-02-26 11:40:00.000 18 /min Respirations 2025-02-18 10:39:00.000 18 /min Systolic Blood Pressure 2025-02-26 11:40:00.000 138 mm [Hg] Systolic Blood Pressure 2025-02-18 10:39:00.000 110 mm [Hg] Diastolic Blood Pressure 2025-02-26 11:40:00.000 76 mm [Hg] Diastolic Blood Pressure 2025-02-18 10:39:00.000 62 mm [Hg] Plan of Treatment Planned Activity Planned Date Details Comments Future Scheduled Test RN TO OBSE RVE, ASSESS, EVALUATE, AND DEVELOP AN INDIVIDUALIZED PLAN OF CARE. AGENCY MAY ACCEPT ORDERS FROM CONSULTING PHYSICIANS. RN TO OBSERVE AND ASSESS, INDUSTRY OPERATIONS INVESTIGATOR/CONTROL OFFICER TO OBSERVE FOR RISK FOR FALLS AND INSTRUCT IN FALL PREVENTION, HOME SAFETY, MEDICATION MANAGEMENT, INFECTION PREVENTION, AND NUTRITION MANAGEMENT. RN/INDUSTRY OPERATIONS INVESTIGATOR/CONTROL OFFICER NURSE MAY PERFORM O2 SATURATION LEVEL ON ADMISSION AND PRN FOR RN TO ASSESS/INDUSTRY OPERATIONS INVESTIGATOR TO OBSERVE PATIENT, WITH NOTIFICATION TO THE PHYSICIAN IF SATURATION IS 90% IN THE ABSENCE OF MORE SPECIFIC PARAMETERS FROM THE PHYSICIAN. AGENCY MAY PERFORM A RESUMPTION OF CARE VISIT FOLLOWING ANY HOSPITAL ADMISSION. RN/INDUSTRY OPERATIONS INVESTIGATOR/CONTROL OFFICER TO MONITOR CO-MORBID CONDITIONS LISTED ON THE PLAN OF CARE AND ANY NEW CONDITIONS THAT PRESENT THEMSELVES DURING THIS EPISODE TO IDENTIFY CHANGES AND INTERVENE TO MINIMIZE COMPLICATIONS. [code = RN TO OBSERVE, ASSESS, EVALUATE, AND DEVELOP AN INDIVIDUALIZED PLAN OF CARE. AGENCY MAY ACCEPT ORDERS FROM CONSULTING PHYSICIANS. RN TO OBSERVE AND ASSESS, INDUSTRY OPERATIONS INVESTIGATOR/CONTROL OFFICER TO OBSERVE FOR RISK FOR FALLS AND INSTRUCT IN FALL PREVENTION, HOME SAFETY, MEDICATION MANAGEMENT, INFECTION PREVENTION, AND NUTRITION MANAGEMENT. RN/INDUSTRY OPERATIONS INVESTIGATOR/CONTROL OFFICER NURSE MAY PERFORM O2 SATURATION LEVEL ON ADMISSION AND PRN FOR RN TO ASSESS/INDUSTRY OPERATIONS INVESTIGATOR TO OBSERVE PATIENT, WITH NOTIFICATION TO THE PHYSICIAN IF SATURATION IS 90% IN THE ABSENCE OF MORE SPECIFIC PARAMETERS FROM THE PHYSICIAN. AGENCY MAY PERFORM A RESUMPTION OF CARE VISIT FOLLOWING ANY HOSPITAL ADMISSION. RN/INDUSTRY OPERATIONS INVESTIGATOR/CONTROL OFFICER TO MONITOR CO-MORBID CONDITIONS LISTED ON THE PLAN OF CARE AND ANY NEW CONDITIONS THAT PRESENT THEMSELVES DURING THIS EPISODE TO IDENTIFY CHANGES AND INTERVENE TO MINIMIZE COMPLICATIONS.] Future Scheduled Test MEDICATION MANAGEMENT; RN/INDUSTRY OPERATIONS INVESTIGATOR/CONTROL OFFICER TO REVIEW MEDICATIONS FOR INTERACTIONS, EFFECTIVENESS OF DRUG THERAPY, AND SIGNS/SYMPTOMS OF ADVERSE REACTIONS. MAY INSTRUCT AND REINFORCE MEDICATION TEACHING RELATED TO THE USE OF MEDICATIONS, DOSAGE, FREQUENCY, PURPOSE, SIDE EFFECTS, AND TO REPORT COMPLICATIONS. [code = MEDICATION MANAGEMENT; RN/INDUSTRY OPERATIONS INVESTIGATOR/CONTROL OFFICER TO REVIEW MEDICATIONS FOR INTERACTIONS, EFFECTIVENESS OF DRUG THERAPY, AND SIGNS/SYMPTOMS OF ADVERSE REACTIONS. MAY INSTRUCT AND REINFORCE MEDICATION TEACHING RELATED TO THE USE OF MEDICATIONS, DOSAGE, FREQUENCY, PURPOSE, SIDE EFFECTS, AND TO REPORT COMPLICATIONS.] Future Scheduled Test CARDIOVASC ULAR SYSTEM; RN TO ASSESS/TEACH, INDUSTRY OPERATIONS INVESTIGATOR/CONTROL OFFICER TO OBSERVE/TEACH RELATED TO ALTERED CARDIOVASCULAR STATUS TO MINIMIZE COMPLICATIONS AND REDUCE HOSPITALIZATION. [code = CARDIOVASCULAR SYSTEM; RN TO ASSESS/TEACH, INDUSTRY OPERATIONS INVESTIGATOR/CONTROL OFFICER TO OBSERVE/TEACH RELATED TO ALTERED CARDIOVASCULAR STATUS TO MINIMIZE COMPLICATIONS AND REDUCE HOSPITALIZATION.] Future Scheduled Test HYPERTENSI ON MANAGEMENT; RN TO ASSESS AND TEACH, INDUSTRY OPERATIONS INVESTIGATOR/CONTROL OFFICER TO OBSERVE AND TEACH WARNING SIGNS AND SYMPTOMS TO AVOID HOSPITALIZATION. [code = HYPERTENSION MANAGEMENT; RN TO ASSESS AND TEACH, INDUSTRY OPERATIONS INVESTIGATOR/CONTROL OFFICER TO OBSERVE AND TEACH WARNING SIGNS AND SYMPTOMS TO AVOID HOSPITALIZATION.] Future Scheduled Test DIABETES M ONITORING RN/CONTROL OFFICER/INDUSTRY OPERATIONS INVESTIGATOR TO MONITOR BLOOD SUGAR LOG FOR BLOOD SUGAR READINGS THAT ARE BEING CHECKED BY PATIENT 3 TIMES A DAY AND PRN. PATIENT THERAPEUTIC BLOOD SUGAR PARAMETERS ARE 70 - 350. REPORT BLOOD SUGARS OUT OF RANGE TO PHYSICIAN. NURSE MAY PERFORM FINGER STICK BLOOD GLUCOSE NEEDED FOR SIGNS AND SYMPTOMS OF HYPO AND HYPERGLYCEMIA. RN/CONTROL OFFICER/INDUSTRY OPERATIONS INVESTIGATOR TO MONITOR ADHERENCE OF PATIENT PERFORMING DIABETIC FOOT CARE AND MAY PERFORM DIABETIC FOOT CARE PRN. RN/CONTROL OFFICER/INDUSTRY OPERATIONS INVESTIGATOR TO MONITOR FOR ADHERENCE TO DIABETIC SELF-CARE AND MANAGEMENT INCLUDING MEDICATIONS. [code = DIABETES MONITORING RN/CONTROL OFFICER/INDUSTRY OPERATIONS INVESTIGATOR TO MONITOR BLOOD SUGAR LOG FOR BLOOD SUGAR READINGS THAT ARE BEING CHECKED BY PATIENT 3 TIMES A DAY AND PRN. PATIENT THERAPEUTIC BLOOD SUGAR PARAMETERS ARE 70 - 350. REPORT BLOOD SUGARS OUT OF RANGE TO PHYSICIAN. NURSE MAY PERFORM FINGER STICK BLOOD GLUCOSE NEEDED FOR SIGNS AND SYMPTOMS OF HYPO AND HYPERGLYCEMIA. RN/CONTROL OFFICER/INDUSTRY OPERATIONS INVESTIGATOR TO MONITOR ADHERENCE OF PATIENT PERFORMING DIABETIC FOOT CARE AND MAY PERFORM DIABETIC FOOT CARE PRN. RN/CONTROL OFFICER/INDUSTRY OPERATIONS INVESTIGATOR TO MONITOR FOR ADHERENCE TO DIABETIC SELF-CARE AND MANAGEMENT INCLUDING MEDICATIONS.] Future Scheduled Test SKIN INTEG RITY RN TO ASSESS AND TEACH, INDUSTRY OPERATIONS INVESTIGATOR/CONTROL OFFICER TO OBSERVE AND TEACH INTEGUMENTARY STATUS TO IDENTIFY CHANGES AND INTERVENE TO MINIMIZE COMPLICATIONS. PROVIDE SKILLED TEACHING OF GENERAL WOUND AND SKIN CARE AND PREVENTION RELATED TO POTENTIAL FOR OR ACTUAL ALTERED SKIN INTEGRITY. [code = SKIN INTEGRITY RN TO ASSESS AND TEACH, INDUSTRY OPERATIONS INVESTIGATOR/CONTROL OFFICER TO OBSERVE AND TEACH INTEGUMENTARY STATUS TO IDENTIFY CHANGES AND INTERVENE TO MINIMIZE COMPLICATIONS. PROVIDE SKILLED TEACHING OF GENERAL WOUND AND SKIN CARE AND PREVENTION RELATED TO POTENTIAL FOR OR ACTUAL ALTERED SKIN INTEGRITY.] Future Scheduled Test PAIN MANAG EMENT; RN TO ASSESS AND TEACH, CONTROL OFFICER/INDUSTRY OPERATIONS INVESTIGATOR TO OBSERVE AND TEACH AND PROVIDE EDUCATION ON PAIN MANAGEMENT TECHNIQUES. [code = PAIN MANAGEMENT; RN TO ASSESS AND TEACH, CONTROL OFFICER/INDUSTRY OPERATIONS INVESTIGATOR TO OBSERVE AND TEACH AND PROVIDE EDUCATION ON PAIN MANAGEMENT TECHNIQUES.] Future Scheduled Test ANEMIA MAN AGEMENT; RN TO ASSESS AND TEACH, CONTROL OFFICER/INDUSTRY OPERATIONS INVESTIGATOR TO OBSERVE AND TEACH AND PROVIDE EDUCATION ON ANEMIA. [code = ANEMIA MANAGEMENT; RN TO ASSESS AND TEACH, CONTROL OFFICER/INDUSTRY OPERATIONS INVESTIGATOR TO OBSERVE AND TEACH AND PROVIDE EDUCATION ON ANEMIA.] Future Scheduled Test FALL REDUC TION MANAGEMENT; RN TO ASSESS AND OBSERVE, INDUSTRY OPERATIONS INVESTIGATOR/CONTROL OFFICER TO OBSERVE FALL RISK FACTORS AND EDUCATE PATIENT/CAREGIVER ON STRATEGIES TO MINIMIZE THE RISK OF FALLING. [code = FALL REDUCTION MANAGEMENT; RN TO ASSESS AND OBSERVE, INDUSTRY OPERATIONS INVESTIGATOR/CONTROL OFFICER TO OBSERVE FALL RISK FACTORS AND EDUCATE PATIENT/CAREGIVER ON STRATEGIES TO MINIMIZE THE RISK OF FALLING.] Future Scheduled Test AGENCY MAY PERFORM A RESUMPTION OF CARE VISIT FOLLOWING ANY HOSPITAL ADMISSION. PT TO EVALUATE, OBSERVE / ASSESS, AND MONITOR, PROVIDER CONTRACTING CONSULTANT TO OBSERVE AND MONITOR, PROVIDE SKILLED THERAPEUTIC INTERVENTION, ACTIVITY, EDUCATION, AND TRAINING TO ADDRESS; PT/PROVIDER CONTRACTING CONSULTANT TO PROVIDE GAIT TRAINING FOR IMPROVED MOBILITY AND /OR TO NORMALIZE GAIT PATTERN NEUROMUSCULAR RE-EDUCATION / BALANCE / POSTURAL CONTROL (PT) THERAPEUTIC EXERCISES AND ESTABLISHING A HOME EXERCISE PROGRAM (PT/PROVIDER CONTRACTING CONSULTANT) PT/PROVIDER CONTRACTING CONSULTANT TO PROVIDE STAIR TRAINING PT / PROVIDER CONTRACTING CONSULTANT TO MONITOR AND EDUCATE ON OXYGEN SATURATION DURING ADLS/IADLS, NOTIFY PHYSICIAN AND/OR THE RN CLINICAL TRAIN CREW MEMBER FOR PHYSICIAN NOTIFICATION AND IF O2 SATS BELOW PHYSICIAN ORDERED PARAMETERS AFTER 10 MIN OF REST PT / PROVIDER CONTRACTING CONSULTANT TO MONITOR FOR HYPO/HYPERGLYCEMIA AND CONDUCT ROUTINE FOOT INSPECTIONS. RECORD PATIENT REPORTED BLOOD SUGAR LEVELS AND NOTIFY PHYSICIAN AND/OR THE RN CLINICAL TRAIN CREW MEMBER FOR PHYSICIAN NOTIFICATION IF BLOOD SUGAR LEVELS ARE OUTSIDE ORDERED PARAMETERS. TEACH PATIENT/CAREGIVER ON DAILY FOOT INSPECTIONS PT TO ASSESS / PROVIDER CONTRACTING CONSULTANT TO MONITOR CARDIO/RESPIRATORY SYSTEM; AND NOTIFY THE PHYSICIAN AND/OR THE RN CLINICAL TRAIN CREW MEMBER FOR PHYSICIAN NOTIFICATION FOR EARLY SIGNS AND SYMPTOMS OF EXACERBATION OR DETERIORATION. PT/PROVIDER CONTRACTING CONSULTANT TO IDENTIFY FALL RISK FACTORS; EDUCATE THE PATIENT/CAREGIVER ON WAYS TO REDUCE FALL RISK FACTORS AND ESTABLISH HOME EXERCISE PROGRAM TO MINIMIZE FALL RISK. MAY TEACH THE PATIENT FLOOR RECOVERY WHEN CLINICALLY APPROPRIATE [code = AGENCY MAY PERFORM A RESUMPTION OF CARE VISIT FOLLOWING ANY HOSPITAL ADMISSION. PT TO EVALUATE, OBSERVE / ASSESS, AND MONITOR, PROVIDER CONTRACTING CONSULTANT TO OBSERVE AND MONITOR, PROVIDE SKILLED THERAPEUTIC INTERVENTION, ACTIVITY, EDUCATION, AND TRAINING TO ADDRESS; PT/PROVIDER CONTRACTING CONSULTANT TO PROVIDE GAIT TRAINING FOR IMPROVED MOBILITY AND /OR TO NORMALIZE GAIT PATTERN NEUROMUSCULAR RE-EDUCATION / BALANCE / POSTURAL CONTROL (PT) THERAPEUTIC EXERCISES AND ESTABLISHING A HOME EXERCISE PROGRAM (PT/PROVIDER CONTRACTING CONSULTANT) PT/PROVIDER CONTRACTING CONSULTANT TO PROVIDE STAIR TRAINING PT / PROVIDER CONTRACTING CONSULTANT TO MONITOR AND EDUCATE ON OXYGEN SATURATION DURING ADLS/IADLS, NOTIFY PHYSICIAN AND/OR THE RN CLINICAL TRAIN CREW MEMBER FOR PHYSICIAN NOTIFICATION AND IF O2 SATS BELOW PHYSICIAN ORDERED PARAMETERS AFTER 10 MIN OF REST PT / PROVIDER CONTRACTING CONSULTANT TO MONITOR FOR HYPO/HYPERGLYCEMIA AND CONDUCT ROUTINE FOOT INSPECTIONS. RECORD PATIENT REPORTED BLOOD SUGAR LEVELS AND NOTIFY PHYSICIAN AND/OR THE RN CLINICAL TRAIN CREW MEMBER FOR PHYSICIAN NOTIFICATION IF BLOOD SUGAR LEVELS ARE OUTSIDE ORDERED PARAMETERS. TEACH PATIENT/CAREGIVER ON DAILY FOOT INSPECTIONS PT TO ASSESS / PROVIDER CONTRACTING CONSULTANT TO MONITOR CARDIO/RESPIRATORY SYSTEM; AND NOTIFY THE PHYSICIAN AND/OR THE RN CLINICAL TRAIN CREW MEMBER FOR PHYSICIAN NOTIFICATION FOR EARLY SIGNS AND SYMPTOMS OF EXACERBATION OR DETERIORATION. PT/PROVIDER CONTRACTING CONSULTANT TO IDENTIFY FALL RISK FACTORS; EDUCATE THE PATIENT/CAREGIVER ON WAYS TO REDUCE FALL RISK FACTORS AND ESTABLISH HOME EXERCISE PROGRAM TO MINIMIZE FALL RISK. MAY TEACH THE PATIENT FLOOR RECOVERY WHEN CLINICALLY APPROPRIATE] Goal 2025-01-07 Patient Goal - T O GET STRONGER OVERALL AND BE ABLE TO DO MY EXERCISES Goal Patient Goal - T O GET STRONGER OVERALL AND BE ABLE TO DO MY EXERCISES Goal 2025-02-12 Patient Goal - T O GET STRONGER [...] THE PHYSICIAN. Goal Provider Goal - PATIENT/CAREGIVER TO VERBALIZE, [...] END OF EPISODE. Goal Provider Goal - BLOOD SUGARS WILL REMAIN WITHIN ESTABLISHED RANGES AND DIABETES CONTROLLED THROUGHOUT EPISODE. Goal Provider Goal - PATIENT / CAREGIVER WILL VERBALIZE / DEMONSTRATE UNDERSTANDING OF PAIN CONTROL MEASURES BY END OF EPISODE. Goal Provider Goal - PATIENT/CAREGIVER WILL VERBALIZE UNDERSTANDING OF CARE AND MANAGEMENT OF ANEMIA BY END OF EPISODE. Goal Provider Goal - PATIENT/CAREGIVER WILL VERBALIZE/DEMONSTRATE UNDERSTANDING OF FALL RISK FACTORS AND IMPLEMENT STRATEGIES TO MINIMIZE FALL RISK. PATIENT/CAREGIVER WILL VERBALIZE/DEMONSTRATE AN ABILITY TO ADHERE TO FALL REDUCTION SELF-MANAGEMENT AND LIFE-STYLE CHANGES BY END OF EPISODE. Goal Provider Goal - PT LTG: PATIENT WILL DEMONSTRATE REDUCED GAIT DEVIATIONS TO REDUCE THE RISK FOR FALLING AND MINIMIZE STRAIN ON KNEES/HIPS AND BACK EVIDENCED BY IMPROVED HEEL STRIKE, ADEQUATE STEP LENGTH AND CONSISTENT FOOT CLEARANCE BILATERALLY USING CANE TO WALK INDEPENDENTLY IN ORDER TO ACCESS ALL AREAS OF THE HOME AND TRANSPORTATION WITHIN 9 WEEKS PT LTG: PATIENT WILL DEMONSTRATE REDUCED FALL RISK EVIDENCED BY TUG TEST (CUT SCORE >11 SECONDS INDICATES INCREASED FALL RISK) IMPROVING FROM 20 SECONDS TO 15 SECONDS WITHIN 9 WEEKS PT LTG: PATIENT WILL DEMONSTRATE IMPROVED FUNCTIONAL STRENGTH EVIDENCED BY FIVE TIMES SIT TO STAND TEST (CUT SCORE >12 SECONDS INDICATES AN INCREASED FALL RISK) IMPROVING FROM 25 SECONDS TO 18 SECONDS WITHIN 9 WEEKS PT LTG: PATIENT WILL DEMONSTRATE INCREASED STRENGTH OF BILATERAL LES FROM 3+/5 TO 4+/5 WITHIN 9 WEEKS IN ORDER TO IMPROVE SAFETY AND STABILITY WITH GAIT AND STAIRS PT LTG: PATIENT WILL DEMONSTRATE IMPROVED ABILITY TO SAFELY NEGOTIATE STAIRS FROM CGA TO INDEPENDENT WITH CANE AND RAIL IN ORDER TO SAFELY ACCESS SECOND FLOOR BEDROOM AND FULL BATHROOM WITHIN 6 WEEKS PT LTG: PATIENT WILL MAINTAIN OXYGEN SATURATION WITHIN PHYSICIAN ORDERED PARAMETERS THROUGHOUT EPISODE OF CARE. PATIENT S BLOOD SUGAR WILL REMAIN WELL CONTROLLED WITH SELF-MANAGEMENT THROUGHOUT EPISODE OF CARE. PT LTG: PATIENT WILL NOT EXPERIENCE CARDIAC OR RESPIRATORY COMPLICATIONS THROUGHOUT THE EPISODE OF CARE. PT LTG: PATIENT/CAREGIVER WILL DEMONSTRATE ADHERENCE TO FALL REDUCTION SELF-MANAGEMENT AND REDUCING FALL RISK FACTORS TO MINIMIZE FALL RISK BY END OF EPISODE. PT LTG: PATIENT WILL BE INDEPENDENT WITH IMPLEMENTATION OF HEP WITHIN 4 WEEKS Encounters Start Date/Time End Date/Time Encounter Type Admission Type Attending [facility] Care Department Encounter ID Discharge Date Discharge Status Discharge Condition Discharge Reason Percent Goals Met 2025-02-17 00:00:00 2025-04-17 00:00:00 Outpatient AUREARTLUISA LIZARRAGA [facility] [id number] 12.0 [id number]
== END 2025-03-03 13:19 | disposition home or self-care (01) ==
LOC: HO.HKASLDS 13:18
PROVIDERS: PCP Physician Assistant Medical; Visit Provider Internal Medicine Hypertension Specialist
DX: N18.5 Chronic kidney disease, stage 5 (principal)
CPT/HCPCS: 36415; 80048; 85018; 85027

== ENCOUNTER 2025-03-04 09:47 | Outpatient (AMB) | payer OTHER, SELFPAY ==
[2025-03-04 09:48] VITALS: BP 182/82; PULSE 84; O2SAT 94; BMI 28.1
--- NOTE | 2025-03-04 09:48 | HO.NEPHOV ---
Vital Signs 03/04/25 09:48 Height 5 ft 9 in Weight 190 lb BMI 28.1 BP 182/82 H Blood Pressure Location Rt brachial Position Sitting Pulse 84 Pulse Source Pulse Oximeter Pulse Oximetry (%) 94 Oxygen Delivery Method Room Air Intake Visit Reasons: F/U BP concerns Waste Cotton Cleaner Required: No Accompanied by: Daughter Allergies lisinopril Allergy (Unknown, Verified 03/04/25 09:50) cough Medication List - Last Reconciled 03/04/25 by Tera Aguirre MD albuterol sulfate 90 mcg/actuation inhalation amlodipine 5 mg PO DAILY aspirin 81 mg PO DAILY bisacodyl (Dulcolax (bisacodyl)) 10 mg PO BEDTIME PRN blood sugar diagnostic (FreeStyle Lite Strips) As directed four times a day carvedilol 25 mg PO BID cholecalciferol (vitamin D3) 50 mcg PO DAILY clonidine HCl 0.1 mg PO BID dapagliflozin propanediol (Farxiga) 5 mg PO DAILY hydralazine 100 mg PO TID [insulin 62 units intradermal .after meals] insulin glargine (Lantus Solostar U-100 Insulin) 18 units subcut BEDTIME insulin lispro (Humalog U-100 Insulin) 22 units subcut .before meals peg 3350-electrolytes 236-22.74-6.74 -5.86 gram (Golytely) 240 mL PO Q10M 1 day pen needle, diabetic (BD Ultra-Fine Yuliana Pen Needle) As directed four times a day rosuvastatin 40 mg PO DAILY tamsulosin mg PO DAILY HPI Comments Details: 69 yr old man with long standing h/o HTN And DM for more than 5 years referred for CKD Creatinine was 1.2 in 2020. Creatinine has bumped up to 1.7 in June Currently on Bumex 0.5mg along with VAlsartan 320 mg 01/02/2024. 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 03/05/24 c/o Itching and rash x 3-4 weeks ;Farxiga was started 6 weeks ago. cr upto 2.98! 04/09/24 Still with itching; Off Farxiga; GAined 4 lbs ; c/o edema 06/11/24 Still has itching Has been taking Hydralazine QD instead of TID Lost 10-14 lbs with Bumex 08/06/24 No improving in Itching 09/03/24 69-year-old male seen for Chronic Kidney Disease and associated symptoms. He experiences persistent pruritus involving his eyes, scalp, arms, and legs, possibly linked to medication adjustments since the introduction of hydralazine. Attempts to modify medications have thus far provided insufficient relief for his symptoms. The patient also has a history of hypertension and diabetes mellitus with suboptimal glycemic control; his recent blood glucose was recorded at 238 mg/dL. He correlates dietary habits with blood sugar fluctuations and has been attempting to improve these. Concurrently, the patient reports peripheral edema with associated discoloration. His CKD is advancing, with a current kidney function level at an approximate GFR of 16%, a reduction from a previous measurement of 19%. The patient has brother on dialysis; his brother recently began treatment due to similar underlying conditions. These factors contribute to the patient?s concern about future renal interventions. 10/15/24 The patient is a 69-year-old male presenting with hypertension, chronic kidney disease, and anemia. Hypertension has been a persistent issue, with recent blood pressure readings of 156/80 mmHg, despite multiple antihypertensive medications including valsartan and clonidine. Previous trials with amlodipine and hydralazine were discontinued due to adverse effects such as edema and pruritus. Chronic kidney disease is attributed to long-standing diabetes, with current kidney function at approximately 14%. Anemia is suspected to be multifactorial, potentially due to gastrointestinal blood loss and decreased erythropoietin production from renal impairment. A stool test and colonoscopy are planned to investigate potential gastrointestinal bleeding. The patient will receive erythropoietin injections to address anemia related to renal insufficiency. 12/31/24 Recently hospitalized for accelerated HTN Had UE weakness- possible TIA s/p Blood transfusion Accompanied by daughter 01/14/25 History of Present Illness - The patient is a 69-year-old male presenting with chronic kidney disease management. - Chronic Kidney Disease: Prefers conventional hemodialysis. - Hypertension: Blood pressure variable, recent readings 110/62 mmHg and 143/71 mmHg, dizziness noted. - Anemia: Receiving injections every two to four weeks. - Hyperkalemia: Potassium normalized to 4.8 mmol/L. - Hyperglycemia: Blood sugar improved to 174 mg/dL. 02/11/25 Doing well. No new issues 03/04/25 The patient is a 69-year-old male presenting with hypertension and chronic kidney disease 5 and Anemia The patient has a history of hypertension with fluctuating blood pressure readings, often reaching as high as 206/101 mmHg. Despite medication, blood pressure remains elevated, Chronic kidney disease is evidenced by a creatinine level of 5.82 mg/dL, indicating a decline in renal function. The patient is closely monitored for symptoms that may necessitate the initiation of dialysis, although this has not yet been required. Anemia is present with a hemoglobin level of 8.3 g/dL, requiring ongoing treatment with erythropoiesis-stimulating agents. [facility] Medical History (Updated 01/14/25 @ 11:29 by Tera Aguirre MD) CKD (chronic kidney disease) Diabetes type 2, uncontrolled Essential hypertension Hypertriglyceridemia Hyperlipidemia LDL goal <100 Type 2 diabetes mellitus with diabetic polyneuropathy Cirrhosis of liver GERD (gastroesophageal reflux disease) Tubular adenoma of colon Chronic idiopathic constipation Surgical History History of penile implant History of gastric surgery H/O esophagogastroduodenoscopy Hx of colonoscopy (~10/2014) Family History Father No problems noted. Mother Esophageal cancer Maternal Grandfather Prostate cancer Diabetes Maternal Grandmother CVD (cardiovascular disease) Daughter Tubular adenoma Social History Household Members: Spouse Alcohol intake: current Alcohol intake frequency: former alcohol drinker Patient Tobacco Use Status: Former Tobacco user Physical Exam Vital Signs: Last Vital Signs Pulse 84 03/04/25 09:48 BP 182/82 H 03/04/25 09:48 Pulse Ox 94 03/04/25 09:48 Oxygen Delivery Method Room Air 03/04/25 09:48 BMI result Body Mass Index 28.1 Office Meds epoetin felipa-epbx 20,000 unit/mL injection solution Performing Provider: Tera Aguirre MD Performing Location[facility] Administered by: Tera Aguirre MD on 03/04/25 10:54 Dose Route Admin Location Dispensed Lot Number Expiration Date [facility] Compressor Operator Portable 20,000 unit subcut right arm 1 mL [id number] 06/20/26 9420-3587-27 [employer] [facility] Total Dispensed Waste 1 mL 0 % Results Reviewed Nephrology Results: Hgb, (14.0-18.0) 8.3 g/dl L 03/03/25 WBC, (4.8-10.8) 3.9 X10*3/uL L 03/03/25 Plt Count, (160-400) 204 X10*3/uL 03/03/25 Sodium, (135-145) 133 mmol/L L 03/03/25 Potassium, (3.3-5.1) 4.8 mmol/L 03/03/25 Chloride, (96-108) 107 mmol/L 03/03/25 Carbon Dioxide, (22-29) 17 mmol/L L 03/03/25 BUN, (9-16) 70 mg/dL H 03/03/25 Creatinine, (0.5-1.4) 5.82 mg/dL H* 03/03/25 Calcium, (8.4-10.2) 8.0 mg/dL L 03/03/25 Renal US 09/28/23 Assessment & Plan Assessment & Plan (1) BPH w urinary obs/LUTS: Code(s): N40.1 - Benign prostatic hyperplasia with lower urinary tract symptoms; N13.8 - Other obstructive and reflux uropathy Category: Medical Plan: Follow up with Urology (2) Essential hypertension: Code(s): I10 - Essential (primary) hypertension Category: Medical Plan: Blood pressure is well controlled with the current regimen No changes were made today. Stay on low-sodium (3) Type 2 diabetes mellitus with diabetic polyneuropathy: Code(s): E11.42 - Type 2 diabetes mellitus with diabetic polyneuropathy Category: Medical Plan: Blood pressure is better controlled Keep on current regimen (4) Anemia due to chronic kidney disease: Code(s): N18.9 - Chronic kidney disease, unspecified; D63.1 - Anemia in chronic kidney disease Category: Medical Plan: Administered Retacrit 17922 units subcutaneously and tolerated well Plan 03/04/25 BP elevated Add AMlodipine 2.5 mg QD Titrate dose as need Orders: Orders AMB Epoetin Injection Practice Supplied Today N40.1 - Benign prostatic hyperplasia with lower urinary tract symptoms Medications: Changed From amlodipine 5 mg PO DAILY 90 tabs 0RF To amlodipine 2.5 mg PO DAILY 30 tabs 1RF Coding Level of Care Code Est Pt Level 4 (65467) Diagnoses BPH w urinary obs/LUTS N40.1; N13.8 Essential hypertension I10 Type 2 diabetes mellitus with diabetic polyneuropathy E11.42 Anemia due to chronic kidney disease N18.9; D63.1
--- OUTSIDE RECORDS SUMMARY | 2025-03-04 11:09 | XMS_ITS | Patient Health Record ---
Author Organization [facility] [place] [address] Care Team Providers Care Clinical Operations Consultant Name Role Phone Anel Padgett Primary Care Provider Unavailabl e Clinical, Operations Unavailable Unavailable Kaiden Bautista Unavailable [phone] Arielle Hurtado Unavailable [phone] Allergies Allergen (clinical drug ingredient) Drug/Non Drug [...] COVID-19 Vaccine IM Unknown 04/02/2021 Administ ered brotips COVID-19 Vaccine IM Unknown 06/29/2020 Administered brotips COVID-19 Vaccine IM Unknown 07/20/2020 Administered Pneumococcal Vac (Pneumovax 23) SDV / PFS, IM Unknown 07/22/2021 Administered Problems Problem Type SNOMED Code ICD Code Onset Dates Problem Status W/U Status Risk Notes Problem Nicotine dependence (16603712) Personal history of nicotine dependence (Z87.891) Active confirmed Problem Tinea unguium (620990593) Tinea unguium (B35.1) Active confirmed Problem Overweight (759394101) Overweight (E66.3) Active confirmed Problem Tachycardia (0662803) Tachycardia, unspecified (R00.0) Active confirmed Problem Abdominal pain (finding) (74462684) Abdominal pain, unspecified site (R10.9) Active confirmed Problem Acquired trigger finger (5623336) Trigger thumb, left thumb (M65.312) Active confirmed Problem Pain in left foot (119638385360308) Pain in left foot (M79.672) Active confirmed Problem Bursitis of left shoulder (802243226235096) Bursitis of left shoulder (M75.52) Active confirmed Problem Lumbosacral spondylosis without myelopathy (89302236) Spondylosis without myelopathy or radiculopathy, lumbar region (M47.816) Active confirmed Problem Backache (123056591) Dorsalgia, unspecified (M54.9) Active confirmed Problem Pain in right foot (063629589548606) Pain in right foot (M79.671) Active confirmed Problem Folliculitis (74621285) Folliculitis (L73.9) Active confirmed Problem Arthropathy of lumbar facet joint (disorder) (019501318) Facet arthropathy, lumbar (M47.816) Active confirmed Problem Tobacco user (355284626) Cigarette nicotine dependence without complication (F17.210) Active confirmed Problem Recurrent major depression in full remission (43445787) Major depressive disorder, recurrent, in full remission (F33.42) Active confirmed Problem Cholesterolosis of gallbladder (92962011) 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) Active confirmed Problem Localized, primary osteoarthritis of the pelvic region and thigh (538667427) Unilateral primary osteoarthritis, right hip (M16.11) Active confirmed Problem Degeneration of lumbar intervertebral disc (88857354) Other intervertebral disc degeneration, lumbar region (M51.36) Active confirmed Problem Nocturia (540816755) Nocturia (R35.1) Active confirmed Problem Gastroesophageal reflux disease without esophagitis (431247958) Gastroesophageal reflux disease without esophagitis (K21.9) Active confirmed Problem Long-term current use of insulin (558205606) penitentiary (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 (Z79.4) Active confirmed Problem Chronic kidney disease due to hypertension (990426819564547) Hypertensive chronic kidney disease with stage 1 through stage 4 chronic kidney disease, or unspecified chronic kidney disease (I12.9) Active confirmed Problem Erectile dysfunction (disorder) (443882639) Erectile dysfunction, unspecified erectile dysfunction type (N52.9) Active confirmed Problem History of transurethral resection of prostate (391779476) S/P TURP (Z90.79) Active confirmed Problem Primary hypertension (96573933) Primary hypertension (I10) Active confirmed Problem Hyperlipidaemia (86798922) Hyperlipidemia, unspecified hyperlipidemia type (E78.5) Active confirmed Problem Shoulder joint pain (916696262) Left shoulder pain, unspecified chronicity (M25.512) Active confirmed Problem Type II diabetes mellitus without complication (945161275) Type 2 diabetes mellitus without complication, without long-term current use of insulin (E11.9) Active confirmed Problem Diabetic peripheral neuropathy associated with type 2 diabetes mellitus (0773727973924) Type 2 diabetes mellitus with diabetic neuropathy, without long-term current use of insulin (E11.40) Active confirmed Problem Chronic idiopathic constipation (83285191) Chronic idiopathic constipation (K59.04) Active confirmed Problem Secondary catara ct of both eyes, unspecified secondary cataract type (H26.40) Active confirmed Problem Lower urinary tract symptoms due to benign prostatic hypertrophy (58414034088408) Benign prostatic hyperplasia with lower urinary tract symptoms, symptom details unspecified (N40.1) Active confirmed Problem Glaucoma (18828964) Glaucoma, unspecified glaucoma type, unspecified laterality (H40.9) Active confirmed Problem Diverticulitis of colon (649034715) Diverticulitis of large intestine, unspecified bleeding status, unspecified complication status (K57.32) Active confirmed Problem Cirrhosis - non-alcoholic (907557941) Hepatic cirrhosis, unspecified hepatic cirrhosis type, unspecified whether ascites present (K74.60) Active confirmed Problem Low back pain (finding) (335694990) Low back pain, unspecified back pain laterality, unspecified chronicity, unspecified whether sciatica present (M54.50) Active confirmed Problem History of endocrine disorder (458329089) H/O hypogonadism (Z86.39) Active confirmed Vital Signs Height-cm 181.61 cm 08/25/2024 Height 71.5 in 08/25/2024 Encounters Encounter Location Date Provider Diagnosis [address] [address] 03/10/2024 Operations Clinical Folliculitis L73.9 ; Primary [...] Unilateral primary osteoarthritis, right hip M16.11 ; termite technician (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 Z79.4 ; Low back pain, unspecified back pain laterality, unspecified chronicity, unspecified whether sciatica present M54.50 ; Hypertensive chronic kidney disease with stage 1 through stage 4 chronic kidney disease, or unspecified chronic kidney disease I12.9 and Tachycardia, unspecified R00.0 [facility] [address] [facility] [address] 08/25/2024 Arielle Hurtado Folliculitis L73.9 ; Primary [...] Unilateral primary osteoarthritis, right hip M16.11 ; termite technician (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 Z79.4 ; Low back pain, unspecified back pain laterality, unspecified chronicity, unspecified whether sciatica present M54.50 ; Hypertensive chronic kidney disease with stage 1 through stage 4 chronic kidney disease, or unspecified chronic kidney disease I12.9 and Tachycardia, unspecified R00.0 [facility] [address] [address] 09/01/2024 Kaiden Bautista [facility] [address] [place] [address] 12/19/2024 Arielle Hurtado [facility] [address] [place] [address] 12/31/2024 Arielle Hurtado Assessments Encounter Date Diagnosis [...] osteoarthritis, right hip (ICD-10 - M16.11) 03/10/2024 termite technician (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 (ICD-10 - Z79.4) Problem list updated using [employer] 08/25/2024 termite technician (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 (ICD-10 - Z79.4) [...] [facility] SCO ([id number]) [address] [facility] [address] [place] [address] [id number] Modesto Rogers Self - patient is the insured 2 9
--- OUTSIDE RECORDS SUMMARY | 2025-03-04 11:09 | XMS_ITS | Clinical Summary ---
Author Organization [facility] Address [address] [place] [address] Care Team Providers Care Conditioning Machine Operator Name Role Phone Anel Padgett [facility] Primary Care Provider [phone] Source Comments PLEASE NOTE, if this patient [...] mcg/actuation nasal sprayIndications:N chel[place] congestion Place 1 [place] in both nostrils once daily for 14 [...] 01/20/2017 Overview (01/20/2017): Colonoscopy done 11/11/14 at [facility] - small hiatus hernia with no evidence of reflux esophagitis , normal colonoscopy Endoscopy also done - DX superficial gastritis Diverticulitis of large intestine 04/05/2015 Overview (04/05/2015): Seen at [facility] 03/25/2015 for abdominal pain for 3 days. Treated with Levaquin,and flagyl . CT Scan : Wall thickening with Inflammatory changes surrounding junction of descending/sigmoid colon. Pt has history of Diverticulitis S/P Partial colon Resection 2-3 years ago. History of Negative Colonoscopy early 2014 at [facility] Facet arthropathy, lumbar 02/03/2015 Overview (02/03/2015): Sees [facility]. X-ray 12/05/2014 L4-L5 facet arthropathy. Undergoing PT. X- Ray hip normal H/O hypogonadism 01/19/2015 Overview (01/19/2015): Sees Urologist S/P TURP 02/25/2014 Overview (07/01/2017): Done 10/21/2013. Sees Urologist [facility] 05/25/17 - No show to Urology F/U DM type 2 (diabetes mellitus, type 2) 07/28/2013 Overview (09/10/2013): Pt sees Endo at [facility] Hyperlipidemia 07/28/2013 GERD (gastroesophageal reflux disease) 4 [...] 11/03/2024 05/06/2024, 07/22, 02/27/2017, Additional history exists [id number] ( season) 2024 01/23/2024, 01/31/2022, 04/02/2021, Additional [...] complication, with long-term current use of insulin ([facility]) Hypertension, unspecified type LIPID PANEL Routine 05/06/2024 1:56 PM EST Encounter to establish care Controlled type 2 diabetes mellitus without complication, with long-term current use of insulin ([facility]) Hypertension, unspecified type MICROALBUMIN/CREATININ E RATIO, URINE, RANDOM Routine 05/06/2024 1:56 PM EST Encounter to establish care Controlled type 2 diabetes mellitus without complication, with long-term current use of insulin ([facility]) HGBA1C W/MPG Routine 05/06/2024 1:56 PM EST Encounter to establish care Controlled type 2 diabetes mellitus without complication, with long-term current use of insulin ([facility]) HEPATITIS A,B,C PANEL Routine 02/27/2017 11:10 AM EST Multiple joint pain from Last 3 Months or Most Recently Relevant to Health Maintenance Results * (ABNORMAL) HGBA1C W/MPG (05/06/2024 1:56 PM EST) HEMOGLOBIN A1C 7.4(H) <5.7 % of total Hgb [facility]oqu[facility] Comment: For someone without known diabetes, a [...] children. MEAN PLASMA GLUCOSE 186 mg/dL (calc) [employer] Blood Blood / Unknown 05/06/2024 1 :56 PM EST 05/06/2024 1:56 PM EST Narrative [employer] - 05/08/2024 5:49 PM EST FASTING:NO us Mary Osborne PA-C LAB - BLOOD DRAW Edited Res ult - Final Performing Organization Address City/[facility]/ZIP Co de Phone Number [employer] [address] [address], [employer] [address] [address] * (ABNORMAL) MICROALBUMIN/CREATININE RATIO, URINE, RANDOM (05/06/2024 1:56 PM EST) CREATININE, RANDOM URINE 37 20 - 320 mg/dL [employer] MICROALBUMIN 147.9 mg/dL [employer] Comment: Verified by repeat analysis. Reference Range Not established MICROALBUMIN/CREA TININE RATIO, RANDOM URINE 3,997(H) <30 mg/g creat [employer] Comment: The ADA defines abnormalities in albumin [...] PM EST 05/06/2024 1:56 PM EST Narrative [employer] - 05/08/2024 5:49 PM EST FASTING:NO us Mary Osborne PA-C LAB URINE AMBULATORY Final Result Performing Organization Address City/[facility]/ZIP Co de Phone Number [employer] [facility] [address] [address], [employer] [address] [address] * (ABNORMAL) LIPID PANEL (05/06/2024 1:56 PM EST) CHOLESTEROL, TOTAL 122 <200 mg/dL [employer] HDL CHOLESTEROL 41 > OR = 40 mg/dL [employer] [facility] TRIGLYCERIDES 174(H) <150 mg/dL [employer] [facility] LDL-CHOLESTEROL 56 99 mg/dL (calc) [employer] [facility] Comment: Reference range: <100 Desirable range <100 mg/dL for primary prevention; <70 mg/dL for patients with CHD or diabetic patients with > or = 2 CHD risk factors. LDL-C is now calculated using the Annalise calculation, which is a validated novel method providing better accuracy than the Friedewald equation in the estimation of LDL-C. Hola PHAN et al. KAUSHIK. 2013;310(19): 2545-8695 (http://education.NanoBio/faq/ZFO801) CHOL/HDLC RATIO 3.0 <5.0 (calc) [employer] [facility] NON-HDL CHOLESTEROL 81 <130 mg/dL (calc) [employer] [facility] Comment: For patients with diabetes plus 1 major ASCVD risk factor, treating to a non-HDL-C goal of <100 mg/dL (LDL-C of <70 mg/dL) is considered a therapeutic option. Blood Blood / Unknown 05/06/2024 1 :56 PM EST 05/06/2024 1:56 PM EST Narrative [employer] [facility] - 05/08/2024 5:49 PM EST FASTING:NO us Mary Osborne PA-C LAB - BLOOD DRAW Final Resu lt Performing Organization Address City/[facility]/ZIP Co de Phone Number [facility] [facility] [address] [address], [employer] [facility] [address] [place] [address] * (ABNORMAL) COMPREHENSIVE METABOLIC PANEL (05/06/2024 1:56 PM EST) GLUCOSE 329(H) 65 - 139 mg/dL [employer] [facility] Comment: Non-fasting reference interval UREA NITROGEN (BUN) 39(H) 7 - 25 mg/dL [employer] [facility] CREATININE (blood) 2.99(H) 0.70 - 1.35 mg/dL [employer] [facility] EGFR 22(L) > OR = 60 mL/min/1. 73m2 [employer] [facility] BUN/CREATININE RATIO 13 6 - 22 (calc) [employer] [facility] SODIUM 133(L) 135 - 146 mmol/L [employer] [facility] POTASSIUM 4.4 3.5 - 5.3 mmol/L [employer] CHLORIDE 101 98 - 110 mmol/L [employer] [facility] CARBON DIOXIDE 22 20 - 32 mmol/L [employer] CALCIUM 8.4(L) 8.6 - 10.3 mg/dL [employer] [facility] PROTEIN, TOTAL 5.8(L) 6.1 - 8.1 g/dL [employer] [facility] ALBUMIN 3.2(L) 3.6 - 5.1 g/dL [employer] [facility] GLOBULIN 2.6 1.9 - 3.7 g/dL (calc) [facility] ALBUMIN/GLOBULI N RATIO 1.2 1.0 - 2.5 (calc) [facility] [facility] BILIRUBIN, TOTAL 0.3 0.2 - 1.2 mg/dL [facility] [facility] ALKALINE PHOSPHATASE 181(H) 35 - 144 U/L [employer] [facility] AST 25 10 - 35 U/L [employer] [facility] ALT 26 9 - 46 U/L [employer] [facility] Blood Blood / Unknown 05/06/2024 1 :56 PM EST 05/06/2024 1:56 PM EST Narrative [facility] - 05/08/2024 5:49 PM EST FASTING:NO us Mary Osborne PA-C LAB - BLOOD DRAW Edited Res ult - Final [facility] [employer] [address] [address], [employer] [facility] [address] [place] [address] * HEPATITIS A,B,C PANEL (02/27/2017 11:10 AM [...] AM EST 02/27/2017 11:33 AM EST Narrative [facility] - 02/27/2017 4:19 PM EST [employer] [address] [place] [address] PT ID [id number] ORD# [id number] Gregor GRIFFITH LAB - BLOOD DRAW Edited Result - Final [facility] [address] [place] [address], from Last 3 Months or Most Recently Relevant to Health Maintenance Insurance [facility] [employer] [facility] Care Teams Conditioning Machine Operator Relationship Specialty Start Date End Date Anel Padgett FNP [address] [place] [address] PCP - General Internal Medicine 09/05/21
--- OUTSIDE RECORDS SUMMARY | 2025-03-04 11:09 | XMS_ITS | Clinical Summary ---
Author Organization [facility] Address [address] [place] [address] Phone Care Team Providers Care Brim Cutter Name Role Phone Rashid Steele Primary Care Provider [phone] Allergies Active Allergy Reactions Criticality Noted Date [...] CVA (cerebral vascular accident) (CMS/HCC V24, C PA/HCC V28) 12/03/2024 Spinal stenosis of cervical region with radiculo juan 08/15/2024 Alcoholic liver disease ([facility]/HCC V24) 08/08/2024 Overview (08/08/2024): Apr 20, 2008 [...] By: RASHID STEELE Comment: GI is at [facility]; , FAX [phone] Dec 01, 2020 Entered By: RASHID STEELE Comment: Patient. [facility] ABD that GI at [facility] Desires Jul 22, 2021 Entered By: RASHID STEELE Comment: Next Hepatology appt., w/ Imaging at [facility] in Mid - AUG 12 Oct 14, 2021 Entered By: RASHID STEELE Comment: Per Pt., Liver Disease Stable; Not Progressed Oct 14, 2021 Entered By: RASHID STEELE Comment: Chooses Private Care for This Oct 28, 2021 Entered By: RASHID STEELE Comment: LFT's WNL OCTOBER 12 May 31, 2022 Entered By: RASHID STEELE Comment: Still Sees GI/Hepatology at [facility]; Next Appt JUN 15 May 31, 2022 Entered By: RASHID STEELE Comment: US pending at [facility] JUN 15 Dec 01, 2022 Entered By: RASHID STEELE Comment: US, Elastography Liiver DEC 13 [place]: Dec 01, 2022 Entered By: RASHID STEELE [...] nonproliferative 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 edema, bilateral ([facility] V24, [facility] V28) 07/25/2024 Type 2 diabetes mellitus wit h diabetic peripheral angiopathy without gangrene ([facility] V24, [facility] V28) 07/25/2024 Tinea unguium 07/25/2024 Sensorineural hearing [...] Team Description 12/08/2024 Plan of Care Documentation [facility] [address] [place] [phone] 12/03/2024 5:42 PM EDT - 12/13/2024 11:45 AM EDT Hospital Encounter [facility] [address] [place] [phone] Bre Garcia DO CVA (cerebral vascular accident) ([facility] V24, [facility] V28) [I63.9] (Primary Dx) Discharge Disposition: Short [...] Medical History Medical History Date Comments Diabetes ([facility] V24, [facility] V28) Arthritis High blood pressure Social [...] resultswithin the time period is included. Pathologist [facility] Adenovirus Detection by PCR Not Detected Not Detected LAB MICROBIOLOGY METHOD 12/13/2024 12:22 PM EDT [facility] Influenza A PCR Not Detected Not Detected LAB MICROBIOLOGY METHOD 12/13/2024 12:22 PM EDT [facility] Influenza B PCR Not Detected Not Detected LAB MICROBIOLOGY METHOD 12/13/2024 12:22 PM EDT [facility] Coronavirus 229E Not Detected Not Detected LAB MICROBIOLOGY METHOD 12/13/2024 12:22 PM EDT [facility] Coronavirus HKU1 Not Detected Not Detected LAB MICROBIOLOGY METHOD 12/13/2024 12:22 PM EDT [facility] Coronavirus OC43 Not Detected Not Detected LAB MICROBIOLOGY METHOD 12/13/2024 12:22 PM EDT [facility] Coronavirus NL63 Not Detected Not Detected LAB MICROBIOLOGY METHOD 12/13/2024 12:22 PM EDT [facility] Parainfluenza Virus 1 Not Detected Not Detected LAB MICROBIOLOGY METHOD 12/13/2024 12:22 PM EDT [facility] Parainfluenza Virus 2 Not Detected Not Detected LAB MICROBIOLOGY METHOD 12/13/2024 12:22 PM EDT [facility] Parainfluenza Virus 3 Not Detected Not Detected LAB MICROBIOLOGY METHOD 12/13/2024 12:22 PM EDT [facility] Parainfluenza Virus 4 Not Detected Not Detected LAB MICROBIOLOGY METHOD 12/13/2024 12:22 PM EDT [facility] RSV PCR Not Detected Not Detected LAB MICROBIOLOGY METHOD 12/13/2024 12:22 PM EDT [facility] Human Metapneumovirus A and B Not Detected Not Detected LAB MICROBIOLOGY METHOD 12/13/2024 12:22 PM EDT [facility] Rhinovirus/Entero virus Not Detected Not Detected LAB MICROBIOLOGY METHOD 12/13/2024 12:22 PM EDT [facility] Bordetella pertussis Not Detected Not Detected LAB MICROBIOLOGY METHOD 12/13/2024 12:22 PM EDT [facility] Bordetella parapertussis Not Detected Not Detected LAB MICROBIOLOGY METHOD 12/13/2024 12:22 PM EDT [facility] Mycoplasma pneumo by PCR Not Detected Not Detected LAB MICROBIOLOGY METHOD 12/13/2024 12:22 PM EDT [facility] Chlamydia pneumoniae Not Detected Not Detected LAB MICROBIOLOGY METHOD 12/13/2024 12:22 PM EDT [facility] SARS COV-2 Not Detected Not Detected LAB MICROBIOLOGY METHOD 12/13/2024 12:22 PM EDT [facility] Swab Both anterior nares / Unknown Non-blood Collection / Unknown 12/13/2024 10:28 AM EDT 12/13/2024 11:25 AM EDT [facility] - 12/13/2024 12:22 PM EDT Testing was performed using the [employer] Respiratory Pathogen PCR Assay. All results must [...] MICROBIOLOGY - GENERA L ORDERABLES Final Result [facility] [address] [place] [address], * (ABNORMAL) Complete blood count (12/13/2024 10:28 AM EDT) Only the most recent of4 resultswithin the time period is included. WBC 15.0(H) 4.8 - 10.8 K/mcL LAB HEMETOLOGY METHOD 12/13/2024 11:31 AM EDT [facility] RBC 2.60(L) 4.50 - 5.50 M/mcL LAB HEMETOLOGY METHOD 12/13/2024 11:31 AM EDT [facility] Hemoglobin 8.2(L) 13.5 - 17.5 g/dL LAB HEMETOLOGY METHOD 12/13/2024 11:31 AM EDT [facility] Hematocrit 25.0(L) 42.0 - 54.0 % LAB HEMETOLOGY METHOD 12/13/2024 11:31 AM EDT [facility] MCV 96.5 79.0 - 98.0 FL LAB HEMETOLOGY METHOD 12/13/2024 11:31 AM EDT [facility] MCH 31.7 27.0 - 32.0 pcg LAB HEMETOLOGY METHOD 12/13/2024 11:31 AM EDT [facility] MCHC 32.8 32.0 - 37.0 g/dL LAB HEMETOLOGY METHOD 12/13/2024 11:31 AM EDT [facility] RDW 11.7 11.0 - 15.0 % LAB HEMETOLOGY METHOD 12/13/2024 11:31 AM EDT [facility] Platelets 311 130 - 400 K/mcL LAB HEMETOLOGY METHOD 12/13/2024 11:31 AM EDT [facility] MPV 10.7 7.0 - 11.0 FL LAB HEMETOLOGY METHOD 12/13/2024 11:31 AM EDT [facility] NRBC 0.0 <1.0 % LAB HEMETOLOGY METHOD 12/13/2024 11:31 AM EDT [facility] NRBC Absolute 0.00 <0.10 K/mcL LAB HEMETOLOGY METHOD 12/13/2024 11:31 AM EDT [facility] Blood Venous blood specimen / Unknown Venipuncture / Unknown 12/13/2024 10:28 AM EDT 12/13/2024 11:25 AM EDT Shira Holliday NP LAB BLOOD ORDERABLES Final Result [facility] [address] [place] [address], [place] [phone] * Type and screen (12/13/2024 10:28 AM EDT) ABO Group O 12/13/2024 1:07 PM EDT [facility] Rh Type Positive 12/13/2024 1:07 PM EDT [facility] Antibody Screen Negative 12/13/2024 1:07 PM EDT [facility] Blood Venous blood specimen / Unknown Venipuncture / Unknown 12/13/2024 10:28 AM EDT 12/13/2024 11:25 AM EDT Shira Holliday NP LAB BLOOD BANK TEST ORDERABLES Final Result [facility] [address] [place] [address], [place] [phone] * (ABNORMAL) Magnesium (12/13/2024 10:28 AM EDT) Only the most recent of2 resultswithin the time period is included. Magnesium 1.7(L) 1.9 - 2.6 mg/dL LAB CHEMISTRY METHOD 12/13/2024 11:46 AM [facility] Blood Venous blood specimen / Unknown Venipuncture / Unknown 12/13/2024 10:28 AM EDT 12/13/2024 11:25 AM EDT Shira Holliday NP LAB BLOOD ORDERABLES Final Result [facility] [address] [place] [address], [place] [phone] * (ABNORMAL) Basic metabolic panel (12/13/2024 10:28 AM EDT) Only the most recent of2 resultswithin the time period is included. Sodium 134 133 - 145 mmol/L LAB CHEMISTRY METHOD 12/13/2024 11:51 AM [facility] Potassium 4.8 3.5 - 5.5 mmol/L LAB CHEMISTRY METHOD 12/13/2024 11:51 AM [facility] Chloride 105 96 - 110 mmol/L LAB CHEMISTRY METHOD 12/13/2024 11:51 AM [facility] CO2 19(L) 21 - 32 mmol/L LAB CHEMISTRY METHOD 12/13/2024 11:51 AM [facility] Anion Gap 10 3 - 11 LAB CHEMISTRY METHOD 12/13/2024 11:51 AM [facility] Glucose 141(H) 70 - 100 mg/dL LAB CHEMISTRY METHOD 12/13/2024 11:51 AM [facility] BUN 80(H) 5 - 25 mg/dL LAB CHEMISTRY METHOD 12/13/2024 11:51 AM [facility] Creatinine 5.52(H) 0.70 - 1.30 mg/dL LAB CHEMISTRY METHOD 12/13/2024 11:51 AM [facility] eGFR 11(L) >=60 mL/min/1. 73m2 LAB CHEMISTRY METHOD 12/13/2024 11:51 AM EDT [facility] Comment:Calculation based on the Chronic Kidney Disease Epidemiology Collaboration (CKD-EPI) equation refit without adjustment for race. BUN/Creatinine Ratio 14.5 LAB CHEMISTRY METHOD 12/13/2024 11:51 AM EDT [facility] Calcium 8.3(L) 8.5 - 10.5 mg/dL LAB CHEMISTRY METHOD 12/13/2024 11:51 AM EDT [facility] Blood Venous blood specimen / Unknown Venipuncture / Unknown 12/13/2024 10:28 AM EDT 12/13/2024 11:25 AM EDT Shira Holliday NP LAB BLOOD ORDERABLES Final Result Performing Organization Address City/[facility]/ZIP Co de Phone Number [facility] [address] [place] [address], [place] [phone] * (ABNORMAL) POCT Glucose, blood (12/13/2024 10:01 AM EDT) Only the most recent of40 resultswithin the time period is included. [facility] Glucose POCT 157(H) 70 - 100 mg/dL 12/13/2024 10:02 AM EDT [facility] Blood Capillary blood specimen / Unknown 12/13/2024 10:01 AM EDT 12/13/2024 10:03 AM EDT Bre Garcia DO LAB POINT OF CARE TEST DOCKED DEVICE UNSOLICITED RESULTS Final Result [facility] [address] [place] [address], [place] [phone] * CT Head Stroke wo Contrast (12/13/2024 [...] Signed Date: 12/13/2024 08:46 ET Workstation ID: [id number] Transcribed By: Self Edit Transcribed Date: 12/13/2024 [...] Signed Date: 12/13/2024 08:46 ET Workstation ID: [id number] Transcribed By: Self Edit Transcribed Date: 12/13/2024 08:43 ET Shira Holliday NP IMG CT PROCEDURES Fi nal Result * ECG 12 lead (12/13/2024 7:53 AM EDT) Ventricular Rate ECG 103 BPM GEMUSE Atrial Rate 103 BPM GEMUSE P-R Interval 176 ms GEMUSE QRS Duration 82 ms GEMUSE Q-T Interval 310 ms GEMUSE QTc 406 ms GEMUSE P Wave Beasley 48 degrees GEMUSE R Beasley 3 degrees GEMUSE T Beasley 73 degrees GEMUSE ECG Interpretation Sinus tachycardia [...] LAB CHEMISTRY METHOD 12/12/2024 5:48 AM EDT [facility] Potassium 5.3 3.5 - 5.5 mmol/L LAB CHEMISTRY METHOD 12/12/2024 5:48 AM EDT [facility] Chloride 105 96 - 110 mmol/L LAB CHEMISTRY METHOD 12/12/2024 5:48 AM [facility] CO2 21 21 - 32 mmol/L LAB CHEMISTRY METHOD 12/12/2024 5:48 AM [facility] Anion Gap 8 3 - 11 LAB CHEMISTRY METHOD 12/12/2024 5:48 AM [facility] Glucose 261(H) 70 - 100 mg/dL LAB CHEMISTRY METHOD 12/12/2024 5:48 AM [facility] BUN 84(H) 5 - 25 mg/dL LAB CHEMISTRY METHOD 12/12/2024 5:48 AM [facility] Creatinine 5.65(H) 0.70 - 1.30 mg/dL LAB CHEMISTRY METHOD 12/12/2024 5:48 AM [facility] eGFR 10(L) >=60 mL/min/1. 73m2 LAB CHEMISTRY METHOD 12/12/2024 5:48 AM [facility] Comment:Calculation based on the Chronic Kidney Disease Epidemiology Collaboration (CKD-EPI) equation refit without adjustment for race. BUN/Creatinine Ratio 14.9 LAB CHEMISTRY METHOD 12/12/2024 5:48 AM [facility] Calcium 7.9(L) 8.5 - 10.5 mg/dL LAB CHEMISTRY METHOD 12/12/2024 5:48 AM [facility] AST (SGOT) 19 10 - 42 unit/L LAB CHEMISTRY METHOD 12/12/2024 5:48 AM [facility] ALT (SGPT) 35 10 - 60 unit/L LAB CHEMISTRY METHOD 12/12/2024 5:48 AM [facility] Alkaline Phosphatase 157(H) 42 - 121 unit/L LAB CHEMISTRY METHOD 12/12/2024 5:48 AM [facility] Total Protein 5.0(L) 6.0 - 8.0 g/dL LAB CHEMISTRY METHOD 12/12/2024 5:48 AM [facility] Albumin 2.0(L) 3.2 - 5.0 g/dL LAB CHEMISTRY METHOD 12/12/2024 5:48 AM EDT [facility] Total Bilirubin 0.3 0.0 - 1.4 mg/dL LAB CHEMISTRY METHOD 12/12/2024 5:48 AM EDT [facility] Blood Venous blood specimen / Unknown Venipuncture / Unknown 12/12/2024 5:04 AM EDT 12/12/2024 5:20 AM EDT Shelly SUBRAMANIAN LAB BLOOD ORDERABLES Final R esult [facility] [address] [place] [address], [place] [phone] * Iron (12/10/2024 5:19 AM EDT) Iron 64 50 - 160 mcg/dL LAB CHEMISTRY METHOD 12/10/2024 2:35 PM EDT [facility] Blood Venous blood specimen / Unknown Venipuncture / Unknown 12/10/2024 5:19 AM EDT 12/10/2024 6:51 AM EDT Shelly SUBRAMANIAN LAB BLOOD ORDERABLES Final R esult [facility] [address] [place] [address], [place] [phone] * Ferritin (12/10/2024 5:19 AM EDT) Ferritin 328 26 - 388 ng/mL LAB CHEMISTRY METHOD 12/10/2024 2:35 PM EDT [facility] Blood Venous blood specimen / Unknown Venipuncture / Unknown 12/10/2024 5:19 AM EDT 12/10/2024 6:51 AM EDT Shelly SUBRAMANIAN LAB BLOOD ORDERABLES Final R esult [facility] [address] [place] [address], [place] [phone] * XR Chest 2 Views (12/09/2024 2:20 PM EDT) Anatomical Region Laterality Modality Body Radiographic Adelaide ging 12/09/2024 2:31 PM EDT Impressions 12/09/2024 2:32 PM EDT Impression: Mild bibasilar subsegmental atelectasis or scar. Telerad MORIS ([id number]) -------- FINAL REPORT -------- Dictated By: Emily Hernandez Dictated Date: 12/09/2024 14:31 ET Assigned Physician: Emily Hernandez Reviewed and Electronically Signed By: Emily Hernandez Signed Date: 12/09/2024 14:32 ET Workstation ID: [id number] Transcribed By: Self Edit Transcribed Date: 12/09/2024 [...] bibasilar subsegmental atelectasis or scar. Telerad MORIS ([id number]) -------- FINAL REPORT -------- Dictated By: Emily Hernandez Dictated Date: 12/09/2024 14:31 ET Assigned Physician: Emily Hernandez Reviewed and Electronically Signed By: Emily Hernandez Signed Date: 12/09/2024 14:32 ET Workstation ID: [id number] Transcribed By: Self Edit Transcribed Date: 12/09/2024 14:31 ET us Shelly SUBRAMANIAN IMG XR PROCEDURES Final Resu lt * (ABNORMAL) Urinalysis with reflex microscopic and culture (12/09/2024 1:59 PM EDT) Specific [place] Urine 1.015 1.003 - 1.030 LAB URINALYSIS - AUTOMATED METHOD 12/09/2024 2:31 PM [facility] pH, Urine 6.5 5.0 - 8.0 pH LAB URINALYSIS - AUTOMATED METHOD 12/09/2024 2:31 PM [facility] Leukocytes, Urine Negative Negative LAB URINALYSIS - AUTOMATED METHOD 12/09/2024 2:31 PM [facility] Nitrite, Urine Negative Negative LAB URINALYSIS - AUTOMATED METHOD 12/09/2024 2:31 PM [facility] Protein, Urine 300(A) <=Trace mg/dL LAB URINALYSIS - AUTOMATED METHOD 12/09/2024 2:31 PM [facility] Glucose, Urine >=1000(A) Negative mg/dL LAB URINALYSIS - AUTOMATED METHOD 12/09/2024 2:31 PM [facility] Ketones, Urine Negative Negative mg/dL LAB URINALYSIS - AUTOMATED METHOD 12/09/2024 2:31 PM [facility] Urobilinogen , Urine 1.0 0.2 - 1.0 mg/dL LAB URINALYSIS - AUTOMATED METHOD 12/09/2024 2:31 PM EDT [facility] Bilirubin, Urine Negative Negative LAB URINALYSIS - AUTOMATED METHOD 12/09/2024 2:31 PM EDT [facility] Blood, Urine Negative Negative LAB URINALYSIS - AUTOMATED METHOD 12/09/2024 2:31 PM EDT [facility] RBC, Urine 5.4(H) 0 - 4 /HPF LAB URINALYSIS - AUTOMATED METHOD 12/09/2024 2:31 PM EDT [facility] WBC, Urine 1.3 0 - 4 /HPF LAB URINALYSIS - AUTOMATED METHOD 12/09/2024 2:31 PM EDT [facility] Squamous Epithelial, Urine 17 0 - 60 /LPF LAB URINALYSIS - AUTOMATED METHOD 12/09/2024 2:31 PM EDT [facility] Bacteria, Urine Negative Negative /HPF LAB URINALYSIS - AUTOMATED METHOD 12/09/2024 2:31 PM T [facility] Hyaline Casts, Urine 1.2 0 - 3 /LPF LAB URINALYSIS - AUTOMATED METHOD 12/09/2024 2:31 PM EDT [facility] Urine Urine specimen obtained by clean catch procedure / Unknown Non-blood Collection / Unknown 12/09/2024 1:59 PM EDT 12/09/2024 2:24 PM EDT us Shelly SUBRAMANIAN LAB URINE ORDERABLES Final R esult [facility] [address] [place] [address], * Can urine culture tube (12/09/2024 1:59 PM EDT) Extra Tube Hold for add-ons. 12/09/2024 4:01 PM EDT [facility] Comment:Auto resulted. Urine Urine specimen obtained by clean catch procedure / Unknown Non-blood Collection / Unknown 12/09/2024 1:59 PM EDT 12/09/2024 2:24 PM EDT Shelly SUBRAMANIAN LAB URINE ORDERABLES Final R esult Performing Organization Address [facility]/ZIP Co de Phone Number [facility] [address] [place] [address], [place] [phone] * (ABNORMAL) Phosphorus (12/09/2024 5:30 AM EDT) Phosphorus 4.7(H) 2.5 - 4.5 mg/dL LAB CHEMISTRY METHOD 12/09/2024 7:09 AM EDT [facility] Blood Venous blood specimen / Unknown Venipuncture / Unknown 12/09/2024 5:30 AM EDT 12/09/2024 6:05 AM EDT Shira Holliday NP LAB BLOOD ORDERABLES Final Result Performing Organization Address [facility] Co de Phone Number [facility] [address] [place] [address], * (ABNORMAL) CBC auto differential (12/04/2024 6:05 AM EDT) WBC 4.6(L) 4.8 - 10.8 K/[facility] LAB HEMETOLOGY METHOD 12/04/2024 6:57 AM EDT [facility] RBC 2.40(L) 4.50 - 5.50 M/[facility] LAB HEMETOLOGY METHOD 12/04/2024 6:57 AM EDT [facility] Hemoglobin 7.6(L) 13.5 - 17.5 g/dL LAB HEMETOLOGY METHOD 12/04/2024 6:57 AM EDT [facility] Hematocrit 23.5(L) 42.0 - 54.0 % LAB HEMETOLOGY METHOD 12/04/2024 6:57 AM [facility] MCV 96.7 79.0 - 98.0 FL LAB HEMETOLOGY METHOD 12/04/2024 6:57 AM [facility] MCH 31.3 27.0 - 32.0 pcg LAB HEMETOLOGY METHOD 12/04/2024 6:57 AM [facility] MCHC 32.3 32.0 - 37.0 g/dL LAB HEMETOLOGY METHOD 12/04/2024 6:57 AM [facility] RDW 12.2 11.0 - 15.0 % LAB HEMETOLOGY METHOD 12/04/2024 6:57 AM [facility] Platelets 180 130 - 400 K/mcL LAB HEMETOLOGY METHOD 12/04/2024 6:57 AM [facility] MPV 10.5 7.0 - 11.0 FL LAB HEMETOLOGY METHOD 12/04/2024 6:57 AM [facility] NRBC 0.0 <1.0 % LAB HEMETOLOGY METHOD 12/04/2024 6:57 AM [facility] NRBC Absolute 0.00 <0.10 K/mcL LAB HEMETOLOGY METHOD 12/04/2024 6:57 AM [facility] Neutrophils Relative 51.8 % LAB HEMETOLOGY METHOD 12/04/2024 6:57 AM [facility] Lymphocytes Relative 21.4 % LAB HEMETOLOGY METHOD 12/04/2024 6:57 AM [facility] Monocytes Relative 16.8 % LAB HEMETOLOGY METHOD 12/04/2024 6:57 AM [facility] Eosinophils Relative 8.9 % LAB HEMETOLOGY METHOD 12/04/2024 6:57 AM [facility] Basophils Relative 0.4 % LAB HEMETOLOGY METHOD 12/04/2024 6:57 AM EDT [facility] Immature Granulocytes Relative 0.7 % LAB HEMETOLOGY METHOD 12/04/2024 6:57 AM EDT [facility] Neutrophils Absolute 2.38 1.50 - 7.00 K/mcL LAB HEMETOLOGY METHOD 12/04/2024 6:57 AM EDT [facility] Lymphocytes Absolute 0.98(L) 1.00 - 5.00 K/mcL LAB HEMETOLOGY METHOD 12/04/2024 6:57 AM EDT [facility] Monocytes Absolute 0.77 0.20 - 1.00 K/mcL LAB HEMETOLOGY METHOD 12/04/2024 6:57 AM EDT [facility] Eosinophils Absolute 0.41 0.00 - 0.50 K/mcL LAB HEMETOLOGY METHOD 12/04/2024 6:57 AM EDT [facility] Basophils Absolute 0.02 0.00 - 0.20 K/mcL LAB HEMETOLOGY METHOD 12/04/2024 6:57 AM EDT [facility] Immature Granulocytes Absolute 0.03 0.00 - 0.03 K/mcL LAB HEMETOLOGY METHOD 12/04/2024 6:57 AM EDT [facility] Blood Venous blood specimen / Unknown Venipuncture / Unknown 12/04/2024 6:05 AM EDT 12/04/2024 6:32 AM EDT us [place] SUBRAMANIAN LAB BLOOD ORDERABLES Final Re sult [facility] [address] [place] [address], * Prothrombin time with INR (12/04/2024 6:05 AM EDT) Protime 11.7 10.6 - 13.9 sec LAB COAGULATION METHOD 12/04/2024 6:56 AM EDT [facility] INR 0.9 LAB COAGULATION METHOD 12/04/2024 6:56 AM EDT [facility] Blood Venous blood specimen / Unknown Venipuncture / Unknown 12/04/2024 6:05 AM EDT 12/04/2024 6:31 AM EDT us [place] SUBRAMANIAN LAB BLOOD ORDERABLES Final Re sult [facility] [address] [place] [address], from Last 3 Months Insurance [employer] Member Subscriber Plan / Payer (Ef fective 2021-Present) Name:Luisito Sam Relation to Subscriber:Self Name:Luisito Sam Payer ID:[id number] Group ID:[id number] Type:Not on file Address: [facility] [address] [phone] [facility] Advance Directives Documents on File Type Date Recorded Patient Travel Attendants Expl anation Advance Directives and Living Will [...] currently active code status orders. Care Teams Brim Cutter Relationship Specialty Start Date End Date Rashid Steele PA [address] [place] [phone] PCP - General Internal Medicine 08/12/24
== END 2025-03-04 10:09 | disposition home or self-care (01) ==
PROVIDERS: PCP Physician Assistant Medical; Visit Provider Internal Medicine Hypertension Specialist
DX: N40.1 Benign prostatic hyperplasia with lower urinary tract symptoms (principal); N13.8 Other obstructive and reflux uropathy; I12.9 Hypertensive chronic kidney disease with stage 1 through stage 4 chronic kidney disease, or unspecified chronic kidney disease; E11.42 Type 2 diabetes mellitus with diabetic polyneuropathy; N18.9 Chronic kidney disease, unspecified; D63.1 Anemia in chronic kidney disease
CPT/HCPCS: 99214

== ENCOUNTER → 2025-03-04 09:47 | Outpatient (BNVA) | payer OTHER, SELFPAY | PROVIDERS: PCP Physician Assistant Medical; Visit Provider Internal Medicine Hypertension Specialist | DX: N40.1 Benign prostatic hyperplasia with lower urinary tract symptoms (principal); N13.8 Other obstructive and reflux uropathy; I12.9 Hypertensive chronic kidney disease with stage 1 through stage 4 chronic kidney disease, or unspecified chronic kidney disease; E11.42 Type 2 diabetes mellitus with diabetic polyneuropathy; D63.1 Anemia in chronic kidney disease; N18.9 Chronic kidney disease, unspecified; Z87.891 Personal history of nicotine dependence | CPT/HCPCS: 96372; 99212; Q5106 ==

== ENCOUNTER 2025-03-18 10:21 | Outpatient (AMB) | payer OTHER, SELFPAY ==
[2025-03-18 10:23] VITALS: BP 120/62; PULSE 78; O2SAT 96; BMI 27.6
--- NOTE | 2025-03-18 10:23 | HO.NEPHOV_ITS ---
Vital Signs 03/18/25 10:23 Height 5 ft 9 in Weight 187 lb BMI 27.6 BP 120/62 Blood Pressure Location Lt brachial Position Sitting Pulse 78 Pulse Source Pulse Oximeter Pulse Oximetry (%) 96 Oxygen Delivery Method Room Air Intake Visit Reasons: 2wk f/u w/labs Graves Registration Specialist Required: No Accompanied by: Daughter Allergies lisinopril Allergy (Unknown, Verified 03/18/25 10:25) cough Medication List - Last Reconciled 03/18/25 by Tera Aguirre MD albuterol sulfate 90 mcg/actuation inhalation amlodipine 2.5 mg PO DAILY aspirin 81 mg PO DAILY bisacodyl (Dulcolax (bisacodyl)) 10 mg PO BEDTIME PRN blood sugar diagnostic (FreeStyle Lite Strips) As directed four times a day carvedilol 25 mg PO BID cholecalciferol (vitamin D3) 50 mcg PO DAILY clonidine HCl 0.1 mg PO BID Farxiga (dapagliflozin propanediol) 5 mg PO DAILY NS hydralazine 100 mg PO TID [insulin 62 units intradermal .after meals] insulin glargine (Lantus Solostar U-100 Insulin) 18 units subcut BEDTIME insulin lispro (Humalog U-100 Insulin) 22 units subcut .before meals peg 3350-electrolytes 236-22.74-6.74 -5.86 gram (Golytely) 240 mL PO Q10M 1 day pen needle, diabetic (BD Ultra-Fine Yuliana Pen Needle) As directed four times a day rosuvastatin 40 mg PO DAILY tamsulosin mg PO DAILY HPI Comments Details: 69 yr old man with long standing h/o HTN And DM for more than 5 years referred for CKD Creatinine was 1.2 in 2020. Creatinine has bumped up to 1.7 in June Currently on Bumex 0.5mg along with VAlsartan 320 mg 01/02/2024. 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 03/05/24 c/o Itching and rash x 3-4 weeks ;Farxiga was started 6 weeks ago. cr upto 2.98! 04/09/24 Still with itching; Off Farxiga; GAined 4 lbs ; c/o edema 06/11/24 Still has itching Has been taking Hydralazine QD instead of TID Lost 10-14 lbs with Bumex 08/06/24 No improving in Itching 09/03/24 69-year-old male seen for Chronic Kidney Disease and associated symptoms. He experiences persistent pruritus involving his eyes, scalp, arms, and legs, possibly linked to medication adjustments since the introduction of hydralazine. Attempts to modify medications have thus far provided insufficient relief for his symptoms. The patient also has a history of hypertension and diabetes mellitus with suboptimal glycemic control; his recent blood glucose was recorded at 238 mg/dL. He correlates dietary habits with blood sugar fluctuations and has been attempting to improve these. Concurrently, the patient reports peripheral edema with associated discoloration. His CKD is advancing, with a current kidney function level at an approximate GFR of 16%, a reduction from a previous measurement of 19%. The patient has brother on dialysis; his brother recently began treatment due to similar underlying conditions. These factors contribute to the patient?s concern about future renal interventions. 10/15/24 The patient is a 69-year-old male presenting with hypertension, chronic kidney disease, and anemia. Hypertension has been a persistent issue, with recent blood pressure readings of 156/80 mmHg, despite multiple antihypertensive medications including valsartan and clonidine. Previous trials with amlodipine and hydralazine were discontinued due to adverse effects such as edema and pruritus. Chronic kidney disease is attributed to long-standing diabetes, with current kidney function at approximately 14%. Anemia is suspected to be multifactorial, potentially due to gastrointestinal blood loss and decreased erythropoietin production from renal impairment. A stool test and colonoscopy are planned to investigate potential gastrointestinal bleeding. The patient will receive erythropoietin injections to address anemia related to renal insufficiency. 12/31/24 Recently hospitalized for accelerated HTN Had UE weakness- possible TIA s/p Blood transfusion Accompanied by daughter 01/14/25 History of Present Illness - The patient is a 69-year-old male presenting with chronic kidney disease management. - Chronic Kidney Disease: Prefers conventional hemodialysis. - Hypertension: Blood pressure variable, recent readings 110/62 mmHg and 143/71 mmHg, dizziness noted. - Anemia: Receiving injections every two to four weeks. - Hyperkalemia: Potassium normalized to 4.8 mmol/L. - Hyperglycemia: Blood sugar improved to 174 mg/dL. 02/11/25 Doing well. No new issues 03/04/25 The patient is a 69-year-old male presenting with hypertension and chronic kidney disease 5 and Anemia The patient has a history of hypertension with fluctuating blood pressure readings, often reaching as high as 206/101 mmHg. Despite medication, blood pressure remains elevated, Chronic kidney disease is evidenced by a creatinine level of 5.82 mg/dL, indicating a decline in renal function. The patient is closely monitored for symptoms that may necessitate the initiation of dialysis, although this has not yet been required. Anemia is present with a hemoglobin level of 8.3 g/dL, requiring ongoing treatment with erythropoiesis-stimulating agents. 03/18/25 Here for Retacrit injection and follow-up. Accompanied by daughter. No specific complaints. Tolerating amlodipine. [facility] Medical History (Updated 01/14/25 @ 11:29 by Tera Aguirre MD) CKD (chronic kidney disease) Diabetes type 2, uncontrolled Essential hypertension Hypertriglyceridemia Hyperlipidemia LDL goal <100 Type 2 diabetes mellitus with diabetic polyneuropathy Cirrhosis of liver GERD (gastroesophageal reflux disease) Tubular adenoma of colon Chronic idiopathic constipation Surgical History History of penile implant History of gastric surgery H/O esophagogastroduodenoscopy Hx of colonoscopy (~10/2014) Family History Father No problems noted. Mother Esophageal cancer Maternal Grandfather Prostate cancer Diabetes Maternal Grandmother CVD (cardiovascular disease) Daughter Tubular adenoma Social History Household Members: Spouse Alcohol intake: current Alcohol intake frequency: former alcohol drinker Patient Tobacco Use Status: Former Tobacco user Physical Exam Vital Signs: Last Vital Signs Pulse 78 03/18/25 10:23 BP 120/62 03/18/25 10:23 Pulse Ox 96 03/18/25 10:23 Oxygen Delivery Method Room Air 03/18/25 10:23 BMI result Body Mass Index 27.6 Comfortable Neck supple no JVD. Lungs entry equal no rales. Heart S1-S2 heard no gallop or rub. Abdomen soft nontender. Neuro alert awake oriented. No asterixis. Extremities ; NO edema. Office Meds epoetin felipa-epbx 20,000 unit/mL injection solution Performing Provider: Tera Aguirre MD [facility] Administered by: Tera Aguirre MD on 03/18/25 10:35 Dose Route Admin Location Dispensed Lot Number Expiration Date [facility] Academic Affairs Assistant 20,000 unit subcut 1 mL [id number] 08/21/26 2531-7655-31 [employer] Total Dispensed Waste 1 mL 0 % Results Reviewed Nephrology Results: Hgb, (14.0-18.0) 8.3 g/dl L 03/03/25 WBC, (4.8-10.8) 3.9 X10*3/uL L 03/03/25 Plt Count, (160-400) 204 X10*3/uL 03/03/25 Sodium, (135-145) 133 mmol/L L 03/03/25 Potassium, (3.3-5.1) 4.8 mmol/L 03/03/25 Chloride, (96-108) 107 mmol/L 03/03/25 Carbon Dioxide, (22-29) 17 mmol/L L 03/03/25 BUN, (9-16) 70 mg/dL H 03/03/25 Creatinine, (0.5-1.4) 5.82 mg/dL H* 03/03/25 Calcium, (8.4-10.2) 8.0 mg/dL L 03/03/25 Renal US 09/28/23 Assessment & Plan Assessment & Plan (1) Type 2 diabetes mellitus with diabetic polyneuropathy: Code(s): E11.42 - Type 2 diabetes mellitus with diabetic polyneuropathy Category: Medical Plan: Blood pressure is better controlled Keep on current regimen (2) Essential hypertension: Code(s): I10 - Essential (primary) hypertension Category: Medical Plan: Blood pressure is well controlled with the current regimen after adding AMlodipine 2.5 mg QD on 03.03.25 No changes were made today. Stay on low-sodium (3) Anemia due to chronic kidney disease: Code(s): N18.9 - Chronic kidney disease, unspecified; D63.1 - Anemia in chronic kidney disease Category: Medical Plan: Administered Retacrit 18159 units subcutaneously and tolerated well (4) BPH w urinary obs/LUTS: Code(s): N40.1 - Benign prostatic hyperplasia with lower urinary tract symptoms; N13.8 - Other obstructive and reflux uropathy Category: Medical Plan: Follow up with Urology Orders: Orders Basic Metabolic Panel 2 Weeks D63.1 - Anemia in chronic kidney disease, N18.5 - Chronic kidney disease, stage 5, N18.9 - Chronic kidney disease, unspecified Hemoglobin 2 Weeks D63.1 - Anemia in chronic kidney disease, N18.5 - Chronic kidney disease, stage 5, N18.9 - Chronic kidney disease, unspecified AMB Epoetin Injection Practice Supplied Today D63.1 - Anemia in chronic kidney disease, N18.9 - Chronic kidney disease, unspecified Coding Level of Care Code Est Pt Level 4 (67049) Diagnoses Type 2 diabetes mellitus with diabetic polyneuropathy E11.42 Essential hypertension I10 Anemia due to chronic kidney disease N18.9; D63.1 BPH w urinary obs/LUTS N40.1; N13.8
--- OUTSIDE RECORDS SUMMARY | 2025-03-18 12:13 | XMS_ITS | Clinical Summary ---
Author Organization [address] [facility] Address [address] [place] [address] Phone Care Team Providers Care Trouble Locater Name Role Phone Rashid Steele Primary Care Provider [phone] Allergies Active Allergy Reactions Criticality Noted Date [...] CVA (cerebral vascular accident) (CMS/HCC V24, C ME/HCC V28) 12/03/2024 Spinal stenosis of cervical region with radiculo juan 08/15/2024 Alcoholic liver disease ([facility]/HCC V24) 08/08/2024 Overview (08/08/2024): Apr 20, 2008 [...] By: RASHID STEELE Comment: GI is at [facility]; , FAX [phone] Dec 01, 2020 Entered By: RASHID STEELE Comment: [facility]. [facility] of ABD that GI at [facility] Desires Jul 22, 2021 Entered By: RASHID STEELE Comment: Next Hepatology appt., w/ Imaging at [facility] in Mid - AUG 12 Oct 14, 2021 Entered By: RASHID STEELE Comment: Per Pt., Liver Disease Stable; Not Progressed Oct 14, 2021 Entered By: RASHID STEELE Comment: Chooses Private Care for This Oct 28, 2021 Entered By: RASHID STEELE Comment: LFT's WNL OCTOBER 12 May 31, 2022 Entered By: RASHID STEELE Comment: Still Sees GI/Hepatology at [facility]; Next Appt JUN 15 May 31, 2022 Entered By: RASHID STEELE Comment: US pending at [facility] JUN 15 Dec 01, 2022 Entered By: RSAHID STEELE Comment: US, Elastography [place] DEC 13 [place]: Dec 01, 2022 Entered By: RASHID STEELE [...] nonproliferative 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 edema, bilateral ([facility] V24, [facility] V28) 07/25/2024 Type 2 diabetes mellitus wit h diabetic peripheral angiopathy without gangrene ([facility] V24, [facility] V28) 07/25/2024 Tinea unguium 07/25/2024 Sensorineural hearing [...] Trigger finger of right thumb 05/19/2024 Immunizations Immunization Administration Dates Next Due DTaP, [...] Date Comments Diabetes ([facility] V24, [facility] V28) Arthritis High blood pressure Social [...] Zoster Vaccines (2 of 2) 04/25/2023 02/28/2023, 04/11/2017 Diabetes: Blood Sugar Control Test (HGBA1C) 11/03/2024 [...] Procedure Name Priority Date/Time Associated Diagnosis Comments BASIC METABOLIC PANEL STAT 12/13/2024 10:28 AM EDT from Last 3 Months or Most Recently Relevant to Health Maintenance Results * (ABNORMAL) Basic metabolic panel (12/13/2024 10:28 AM EDT) Sodium 134 133 - 145 mmol/L LAB CHEMISTRY METHOD 12/13/2024 11:51 AM [facility] Potassium 4.8 3.5 - 5.5 mmol/L LAB CHEMISTRY METHOD 12/13/2024 11:51 AM [facility] Chloride 105 96 - 110 mmol/L LAB CHEMISTRY METHOD 12/13/2024 11:51 AM [facility] CO2 19(L) 21 - 32 mmol/L LAB CHEMISTRY METHOD 12/13/2024 11:51 AM [facility] Anion Gap 10 3 - 11 LAB CHEMISTRY METHOD 12/13/2024 11:51 AM [facility] Glucose 141(H) 70 - 100 mg/dL LAB CHEMISTRY METHOD 12/13/2024 11:51 AM [facility] BUN 80(H) 5 - 25 mg/dL LAB CHEMISTRY METHOD 12/13/2024 11:51 AM [facility] Creatinine 5.52(H) 0.70 - 1.30 mg/dL LAB CHEMISTRY METHOD 12/13/2024 11:51 AM [facility] eGFR 11(L) >=60 mL/min/1. 73m2 LAB CHEMISTRY METHOD 12/13/2024 11:51 AM [facility] Comment:Calculation based on the Chronic Kidney Disease Epidemiology Collaboration (CKD-EPI) equation refit without adjustment for race. BUN/Creatinine Ratio 14.5 LAB CHEMISTRY METHOD 12/13/2024 11:51 AM [facility] Calcium 8.3(L) 8.5 - 10.5 mg/dL LAB CHEMISTRY METHOD 12/13/2024 11:51 AM EDT [facility] Blood Venous blood specimen / Unknown Venipuncture / Unknown 12/13/2024 10:28 AM EDT 12/13/2024 11:25 AM EDT Shira Holliday NP LAB BLOOD ORDERABLES Final Result [facility] [address] [place] [address], from Last 3 Months or Most Recently Relevant to Health Maintenance Insurance [facility] [employer] Member Subscriber Plan / Payer (Ef fective 2021-Present) Name:Luisito Sam Relation to Subscriber:Self Name:Luisito Sam Payer ID:[id number] Group ID:[id number] Type:Not on file Address: [facility] [address] [address] [facility] Advance Directives Documents on File Type Date Recorded Patient Sheet Manager Expl anation Advance Directives and Living [...] currently active code status orders. Care Teams Trouble Locater Relationship Specialty Start Date End Date Rashid Steele PA [address] [place] [address] PCP - General Internal Medicine 08/12/24
== END 2025-03-18 10:43 | disposition home or self-care (01) ==
LOC: HO.HKAS 10:21
PROVIDERS: PCP Physician Assistant Medical; Visit Provider Internal Medicine Hypertension Specialist
DX: E11.42 Type 2 diabetes mellitus with diabetic polyneuropathy (principal); I12.9 Hypertensive chronic kidney disease with stage 1 through stage 4 chronic kidney disease, or unspecified chronic kidney disease; N18.9 Chronic kidney disease, unspecified; D63.1 Anemia in chronic kidney disease; N40.1 Benign prostatic hyperplasia with lower urinary tract symptoms; N13.8 Other obstructive and reflux uropathy
CPT/HCPCS: 99214

== ENCOUNTER → 2025-03-18 10:21 | Outpatient (BNVA) | payer OTHER, SELFPAY | PROVIDERS: PCP Physician Assistant Medical; Visit Provider Internal Medicine Hypertension Specialist | DX: I12.9 Hypertensive chronic kidney disease with stage 1 through stage 4 chronic kidney disease, or unspecified chronic kidney disease (principal); E11.42 Type 2 diabetes mellitus with diabetic polyneuropathy; D63.1 Anemia in chronic kidney disease; N18.9 Chronic kidney disease, unspecified; N40.1 Benign prostatic hyperplasia with lower urinary tract symptoms; N13.8 Other obstructive and reflux uropathy; Z87.891 Personal history of nicotine dependence | CPT/HCPCS: 96372; 99212; Q5106 ==

== ENCOUNTER 2025-03-27 11:32 | Outpatient (REF) | payer OTHER, SELFPAY ==
--- OUTSIDE RECORDS SUMMARY | 2025-03-27 17:22 | XMS_ITS | Clinical Summary ---
Author Organization [address] [facility] Address [address] [place] [address] Phone Care Team Providers Care Atm Servicer Name Role Phone Rashid Steele Primary Care Provider [phone] Allergies Active Allergy Reactions Criticality Noted Date [...] CVA (cerebral vascular accident) (CMS/HCC V24, C NV/HCC V28) 12/03/2024 Spinal stenosis of cervical region with radiculo juan 08/15/2024 Alcoholic liver disease ([facility]/HCC V24) 08/08/2024 Overview (08/08/2024): Apr 20, [...] By: RASHID STEELE Comment: GI is at [facility]; , FAX [phone] Dec 01, 2020 Entered By: RASHID STEELE Comment: [facility]. [facility] of ABD that GI at [facility] Desires Jul 22, 2021 Entered By: RASHID STEELE Comment: Next Hepatology appt., w/ Imaging at [facility] in Mid - AUG 12 Oct 14, 2021 Entered By: RASHID STEELE Comment: Per Pt., Liver Disease Stable; Not Progressed Oct 14, 2021 Entered By: RASHID STEELE Comment: Chooses Private Care for This Oct 28, 2021 Entered By: RASHID STEELE Comment: LFT's WNL OCTOBER 12 May 31, 2022 Entered By: RASHID STEELE Comment: Still Sees GI/Hepatology at [facility]; Next Appt JUN 15 May 31, 2022 Entered By: RASHID STEELE Comment: US pending at [facility] JUN 15 Dec 01, 2022 Entered By: RASHID STEELE Comment: US, Elastography [place] DEC 13 [place]: Dec 01, 2022 Entered By: RASHID STEELE [...] nonproliferative 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 edema, bilateral ([facility] V24, [facility] V28) 07/25/2024 Type 2 diabetes mellitus wit h diabetic peripheral angiopathy without gangrene ([facility] V24, [facility] V28) 07/25/2024 Tinea unguium 07/25/2024 Sensorineural hearing [...] Medical History Medical History Date Comments Diabetes ([facility] V24, [facility] V28) Arthritis High blood pressure [...] mmol/L LAB CHEMISTRY METHOD 12/13/2024 11:51 AM [facility] Potassium 4.8 3.5 - 5.5 mmol/L LAB CHEMISTRY METHOD 12/13/2024 11:51 AM [facility] Chloride 105 96 - 110 mmol/L LAB CHEMISTRY METHOD 12/13/2024 11:51 AM [facility] CO2 19(L) 21 - 32 mmol/L LAB CHEMISTRY METHOD 12/13/2024 11:51 AM [facility] Anion Gap 10 3 - 11 LAB CHEMISTRY METHOD 12/13/2024 11:51 AM [facility] Glucose 141(H) 70 - 100 mg/dL LAB CHEMISTRY METHOD 12/13/2024 11:51 AM [facility] BUN 80(H) 5 - 25 mg/dL LAB CHEMISTRY METHOD 12/13/2024 11:51 AM [facility] Creatinine 5.52(H) 0.70 - 1.30 mg/dL LAB CHEMISTRY METHOD 12/13/2024 11:51 AM [facility] eGFR 11(L) >=60 mL/min/1. 73m2 LAB CHEMISTRY METHOD 12/13/2024 11:51 AM [facility] Comment:Calculation based on the Chronic Kidney Disease Epidemiology Collaboration (CKD-EPI) equation refit without adjustment for race. BUN/Creatinine Ratio 14.5 LAB CHEMISTRY METHOD 12/13/2024 11:51 AM [facility] Calcium 8.3(L) 8.5 - 10.5 mg/dL LAB CHEMISTRY METHOD 12/13/2024 11:51 AM EDT [facility] Blood Venous blood specimen / Unknown Venipuncture / Unknown 12/13/2024 10:28 AM EDT 12/13/2024 11:25 AM EDT Shira Holliday NP LAB BLOOD ORDERABLES Final Result [facility] [address] [place] [address], from Last 3 Months or Most Recently Relevant to Health Maintenance Insurance [facility] [employer] Member Subscriber Plan / Payer (Ef fective 2021-Present) Name:Luisito Sam Relation to Subscriber:Self Name:Luisito Sam Payer ID:[id number] Group ID:[id number] Type:Not on file Address: [facility] [address] [phone] [facility] Advance Directives Documents on File Type Date Recorded Patient Tableman Expl anation Advance Directives and Living Will [...] currently active code status orders. Care Teams Atm Servicer Relationship Specialty Start Date End Date Rashid Steele PA [address] [place] [address] PCP - General Internal Medicine 08/12/24
[2025-03-27 18:40] LABS: Hemoglobin 9.5 g/dl (14.0-18.0)
[2025-03-27 20:41] LABS: Alanine Aminotransferase 27 U/L (0-40); Albumin Level 3.2 g/dL (3.5-5.0); Alkaline Phosphatase 146 U/L (39-117); Anion Gap 15 (12-20); Aspartate Amino Transferase 39 U/L (5-37); Blood Urea Nitrogen 57 mg/dL (9-16); Calcium 8.0 mg/dL (8.4-10.2); Carbon Dioxide 20 mmol/L (22-29); Chloride 103 mmol/L (96-108); Estimated Glomerular Filt Rate 9; Potassium 4.2 mmol/L (3.3-5.1); Sodium 134 mmol/L (135-145); Total Protein 6.2 g/dL (6.5-8.0)
== END 2025-03-27 11:33 | disposition home or self-care (01) ==
LOC: HO.HKASLDS 11:32
PROVIDERS: Internal Medicine Hypertension Specialist; PCP Physician Assistant Medical; Visit Provider Nurse Practitioner
DX: E11.59 Type 2 diabetes mellitus with other circulatory complications (principal); E11.22 Type 2 diabetes mellitus with diabetic chronic kidney disease; E11.42 Type 2 diabetes mellitus with diabetic polyneuropathy; N18.5 Chronic kidney disease, stage 5; I43 Cardiomyopathy in diseases classified elsewhere; Z01.818 Encounter for other preprocedural examination; K74.60 Unspecified cirrhosis of liver; I63.9 Cerebral infarction, unspecified; K59.04 Chronic idiopathic constipation; K21.9 Gastro-esophageal reflux disease without esophagitis; M54.9 Dorsalgia, unspecified; R10.9 Unspecified abdominal pain
CPT/HCPCS: 36415; 80053; 83036; 85018; 99212

== ENCOUNTER 2025-03-27 11:32 | Outpatient (AMB) | payer OTHER, SELFPAY ==
--- NOTE | 2025-03-27 11:35 | MHC.OFFVIS ---
Vital Signs 03/27/25 11:36 Height 5 ft 9 in Weight 186 lb BMI 27.5 BP 144/63 H Blood Pressure Location Lt brachial Position Sitting Pulse 78 Intake Visit Reasons: Cirrhosis/Repeat colonoscopy Intake Note: [place] returns to in office follow up of cirrhosis and to discuss repeat colonoscopy. CC: Patient c/o some rumbling from abdomen, constipation, and lower back pain. Special Events Planner Required: No Allergies lisinopril Allergy (Unknown, Verified 03/27/25 11:39) cough HPI HPI Cirrhosis/Repeat colonoscopy: Details: P.m. X Chronic kidney disease Cirrhosis Diabetes High cholesterol Hypertension History of tubular adenoma BPH GERD Constipation * SURGICAL HISTORY Penile implant Gastric surgery EGD Colonoscopy-2014 equals negative exam prior history of TA * ALLERGIES Lisinopril * [facility] LABS: Laboratory Tests 03/03/25 13:25 WBC 3.9 L RBC 2.80 L Hgb 8.3 L Hct 28.0 L MCV 100.0 H Sodium 133 L BUN 70 H Creatinine 5.82 H* Estim Creat Clear Calc Not Reportable Estimated GFR 10 [facility] labs from 12/14/2024 equaled AST/ALT 35/38 with a normal bilirubin of 0.2, normal B12 level, ferritin increased to 438, Assessment & Plan (1) Chronic idiopathic constipation: Comment: Now managed on Flax Code(s): K59.04 - Chronic idiopathic constipation Plan: We review his tests and his liver is fairly stable but his diabetes could be better and likely is the largest impact now. This is managed by the [facility]. (Miguel Rea!!). He continues with flax seed for his CIC and this is controlling it well. His pain in the right flank is improved; but we really don't know why. Lumbar spine sign DJD but thoracic spine ok. He asks about his hip, but I did not look at that. I would have to defer to his primary care provider if he needs additional x-rays. He will be starting PT at [facility] soon for his hip and low back. He continues on omeprazole with good control of his GERD. ROV 6 mos. (2) GERD (gastroesophageal reflux disease): Code(s): K21.9 - Gastro-esophageal reflux disease without esophagitis (3) Back pain: Code(s): M54.9 - Dorsalgia, unspecified (4) Right flank pain: Code(s): R10.9 - Unspecified abdominal pain (5) Cirrhosis of liver: Comment: 2019 hepatitis a B and C screens negative, at that time ferritin normal at 142, transaminases were normal with a mildly elevated bilirubin of 1.1 and no direct, significant history of ETOH use/abuse but none for the last 5 years. Alpha Fetoprotein 3.0, MEHRAN Screen NEGATIVE, Anti-Mitochondrial Ab NEGATIVE, Anti-Smooth Muscle Ab <20, Ferritin 377 H At that time liver elastography showing and equivalent of F2-F3 fibrosis. CURRENT Laboratory Tests 07/13/21 Estimated GFR > 60 Random Glucose 330 H Ferritin 377 H Total Bilirubin 0.3 Direct Bilirubin 0.3 AST 35 ALT 44 H Alkaline Phosphatase 147 H D Alpha Fetoprotein 2.3 ULTRASOUND OF THE ABDOMEN 08/08/21 US/US abdomen limited IMPRESSION: -Subtle hepatic nodular surface suspicious for cirrhosis, also questioned on CT 2018. -No focal hepatic parenchymal lesion. No ascites. -Small gallbladder polyp. No stone or sludge. No ductal dilatation. Code(s): K74.60 - Unspecified cirrhosis of liver TODAY'S VISIT PATIENT HAS BEEN LOST TO FOLLOW-UP SINCE 07/2022 [facility]on Robbins [facility] Medical History CKD (chronic kidney disease) Diabetes type 2, uncontrolled Essential hypertension Hypertriglyceridemia Hyperlipidemia LDL goal <100 Type 2 diabetes mellitus with diabetic polyneuropathy Cirrhosis of liver GERD (gastroesophageal reflux disease) Tubular adenoma of colon Chronic idiopathic constipation Surgical History History of penile implant History of gastric surgery H/O esophagogastroduodenoscopy Hx of colonoscopy (~10/2014) Family History Father No problems noted. 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 Code(s): E11.59 - Type 2 diabetes mellitus with other circulatory complications; I43 - Cardiomyopathy in diseases classified elsewhere Category: Medical (2) Pre-op examination: Code(s): Z01.818 - Encounter for other preprocedural examination Category: Medical (3) Cirrhosis of liver: Comment: 2018 hepatitis a B and C screens negative Code(s): K74.60 - Unspecified cirrhosis of liver Category: Medical (4) Type 2 diabetes mellitus with diabetic polyneuropathy: Code(s): E11.42 - Type 2 diabetes mellitus with diabetic polyneuropathy Category: Medical (5) Chronic kidney disease (CKD) stage G5/A1, glomerular filtration rate (GFR) less than or equal to 15 mL/min/1.73 square meter and albuminuria creatinine ratio less than 30 mg/g: Comment: Kidney biopsy on 12/18/2023 revealed nodular mesangial/diabetic glomerulosclerosis. Moderately active interstitial nephritis with eosinophils. Moderate chronic changes including global glomerulosclerosis 35%, tubular atrophy/interstitial fibrosis 30%. Vascular sclerosis moderate with focal hyalinosis. Code(s): N18.5 - Chronic kidney disease, stage 5 Category: Medical (6) Cerebrovascular accident (CVA) involving left cerebral hemisphere: Code(s): I63.9 - Cerebral infarction, unspecified Category: Medical Plan Subjective Patient presents to discuss colorectal cancer screening options given multiple recent health issues. Reports kidney problems and a prior stroke with residual left-sided weakness; was hospitalized at [facility] for the stroke. Describes that food sometimes ?goes right through? with more urgent bowel movements and also experiences intermittent constipation. Acknowledges unintentional weight loss. Patient is interested in a less invasive option and is agreeable to noninvasive stool testing first, with colonoscopy reserved if needed. Relevant Past Medical, Social, and Family History - Chronic kidney disease/kidney failure. - Prior stroke with residual left-sided weakness; hospitalized at [facility]. Objective - Apparent weight loss compared with prior visits, confirmed by patient. Assessment & Plan Colorectal cancer screening discussion: Given comorbid kidney disease and recent stroke, I recommend noninvasive screening at this time. Patient viewed educational material on stool DNA testing and agrees with this approach as a safer initial strategy. - Order Cologuard (stool DNA test). - If Cologuard is positive, proceed to colonoscopy for diagnostic evaluation. - Schedule follow-up in 8 weeks to allow kit shipment, completion at home, and results review. Altered bowel habits (diarrhea alternating with constipation) in the setting of kidney disease: Likely multifactorial; magnesium supplementation may contribute to diarrhea. Goal is symptom control while avoiding constipation. - Loperamide (Imodium) [id number] as needed for diarrhea; avoid overuse to prevent constipation. - Initiate daily fiber supplementation with psyllium husk capsules; choose a reputable brand (e.g., NOW), taken with sips of water as tolerated. - Mail Carrier And Clerk on balancing use to avoid constipation or obstruction; adjust based on response. This is an extremely complex patient with multiple severe and advanced health problems that include poorly controlled diabetes with near end-stage renal disease, resultant anemia, resultant cardiomyopathy although so far with an it preserved ejection fraction, and a recent stroke. At this juncture I think it would be better to do a Cologuard as I think he needs some breathing room to do some recovering before we even consider an invasive procedure requiring sedation. Even if we do need to go through this we would need approval from his renal provider, we would also need his most recent hemoglobin A1c as a procedure would not be performed his blood sugars were too high. With this he is agreeable to doing a Cologuard. Return office visit in 8 weeks Orders: Orders Comprehensive Met. Panel Today E11.42 - Type 2 diabetes mellitus with diabetic polyneuropathy, E11.59 - Type 2 diabetes mellitus with other circulatory complications, I43 - Cardiomyopathy in diseases classified elsewhere, K74.60 - Unspecified cirrhosis of liver, N18.5 - Chronic kidney disease, stage 5, Z01.818 - Encounter for other preprocedural examination Hemoglobin A1c Today E11.42 - Type 2 diabetes mellitus with diabetic polyneuropathy, E11.59 - Type 2 diabetes mellitus with other circulatory complications, I43 - Cardiomyopathy in diseases classified elsewhere, K74.60 - Unspecified cirrhosis of liver, N18.5 - Chronic kidney disease, stage 5, Z01.818 - Encounter for other preprocedural examination Coding Level of Care Code Est Pt Level 3 (01656) Diagnoses 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
[2025-03-27 11:36] VITALS: BP 144/63; PULSE 78; BMI 27.5
== END 2025-03-27 12:06 | disposition home or self-care (01) ==
LOC: HO.HGI 11:33
PROVIDERS: PCP Physician Assistant Medical; Visit Provider Nurse Practitioner
DX: K74.60 Unspecified cirrhosis of liver (principal); E11.59 Type 2 diabetes mellitus with other circulatory complications; I43 Cardiomyopathy in diseases classified elsewhere; E11.42 Type 2 diabetes mellitus with diabetic polyneuropathy; N18.5 Chronic kidney disease, stage 5
CPT/HCPCS: 99213

== ENCOUNTER 2025-04-01 11:59 | Outpatient (AMB) | payer OTHER, SELFPAY ==
[2025-04-01 12:05] VITALS: BP 162/78; PULSE 80; O2SAT 96; BMI 27.2
--- NOTE | 2025-04-01 12:05 | HO.NEPHOV ---
Vital Signs 04/01/25 12:05 Height 5 ft 9 in Weight 184 lb BMI 27.2 BP 162/78 H Blood Pressure Location Lt brachial Position Sitting Pulse 80 Pulse Source Pulse Oximeter Pulse Oximetry (%) 96 Oxygen Delivery Method Room Air Intake Visit Reasons: 2wk Retacrit f/u Optometrist Assistant Required: No Accompanied by: Daughter Allergies lisinopril Allergy (Unknown, Verified 04/01/25 12:08) cough Medication List - Last Reconciled 04/01/25 by Tera Aguirre MD albuterol sulfate 90 mcg/actuation inhalation amlodipine 2.5 mg PO DAILY aspirin 81 mg PO DAILY bisacodyl (Dulcolax (bisacodyl)) 10 mg PO BEDTIME PRN blood sugar diagnostic (FreeStyle Lite Strips) As directed four times a day carvedilol 25 mg PO BID clonidine HCl 0.1 mg PO BID Farxiga (dapagliflozin propanediol) 5 mg PO DAILY NS hydralazine 100 mg PO TID insulin glargine (Lantus Solostar U-100 Insulin) 15 units subcut BEDTIME insulin lispro (Humalog U-100 Insulin) 22 units subcut .before meals peg 3350-electrolytes 236-22.74-6.74 -5.86 gram (Golytely) 240 mL PO Q10M 1 day pen needle, diabetic (BD Ultra-Fine Yuliana Pen Needle) As directed four times a day rosuvastatin 40 mg PO DAILY tamsulosin mg PO DAILY HPI Comments Details: 69 yr old man with long standing h/o HTN And DM for more than 5 years referred for CKD Creatinine was 1.2 in 2020. Creatinine has bumped up to 1.7 in June Currently on Bumex 0.5mg along with VAlsartan 320 mg 01/02/2024. 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 03/05/24 c/o Itching and rash x 3-4 weeks ;Farxiga was started 6 weeks ago. cr upto 2.98! 04/09/24 Still with itching; Off Farxiga; GAined 4 lbs ; c/o edema 06/11/24 Still has itching Has been taking Hydralazine QD instead of TID Lost 10-14 lbs with Bumex 08/06/24 No improving in Itching 09/03/24 69-year-old male seen for Chronic Kidney Disease and associated symptoms. He experiences persistent pruritus involving his eyes, scalp, arms, and legs, possibly linked to medication adjustments since the introduction of hydralazine. Attempts to modify medications have thus far provided insufficient relief for his symptoms. The patient also has a history of hypertension and diabetes mellitus with suboptimal glycemic control; his recent blood glucose was recorded at 238 mg/dL. He correlates dietary habits with blood sugar fluctuations and has been attempting to improve these. Concurrently, the patient reports peripheral edema with associated discoloration. His CKD is advancing, with a current kidney function level at an approximate GFR of 16%, a reduction from a previous measurement of 19%. The patient has brother on dialysis; his brother recently began treatment due to similar underlying conditions. These factors contribute to the patient?s concern about future renal interventions. 10/15/24 The patient is a 69-year-old male presenting with hypertension, chronic kidney disease, and anemia. Hypertension has been a persistent issue, with recent blood pressure readings of 156/80 mmHg, despite multiple antihypertensive medications including valsartan and clonidine. Previous trials with amlodipine and hydralazine were discontinued due to adverse effects such as edema and pruritus. Chronic kidney disease is attributed to long-standing diabetes, with current kidney function at approximately 14%. Anemia is suspected to be multifactorial, potentially due to gastrointestinal blood loss and decreased erythropoietin production from renal impairment. A stool test and colonoscopy are planned to investigate potential gastrointestinal bleeding. The patient will receive erythropoietin injections to address anemia related to renal insufficiency. 12/31/24 Recently hospitalized for accelerated HTN Had UE weakness- possible TIA s/p Blood transfusion Accompanied by daughter 01/14/25 History of Present Illness - The patient is a 69-year-old male presenting with chronic kidney disease management. - Chronic Kidney Disease: Prefers conventional hemodialysis. - Hypertension: Blood pressure variable, recent readings 110/62 mmHg and 143/71 mmHg, dizziness noted. - Anemia: Receiving injections every two to four weeks. - Hyperkalemia: Potassium normalized to 4.8 mmol/L. - Hyperglycemia: Blood sugar improved to 174 mg/dL. 02/11/25 Doing well. No new issues 03/04/25 The patient is a 69-year-old male presenting with hypertension and chronic kidney disease 5 and Anemia The patient has a history of hypertension with fluctuating blood pressure readings, often reaching as high as 206/101 mmHg. Despite medication, blood pressure remains elevated, Chronic kidney disease is evidenced by a creatinine level of 5.82 mg/dL, indicating a decline in renal function. The patient is closely monitored for symptoms that may necessitate the initiation of dialysis, although this has not yet been required. Anemia is present with a hemoglobin level of 8.3 g/dL, requiring ongoing treatment with erythropoiesis-stimulating agents. 03/18/25 Here for Retacrit injection and follow-up. Accompanied by daughter. No specific complaints. Tolerating amlodipine. [facility] Medical History CKD (chronic kidney disease) Diabetes type 2, uncontrolled Essential hypertension Hypertriglyceridemia Hyperlipidemia LDL goal <100 Type 2 diabetes mellitus with diabetic polyneuropathy Cirrhosis of liver GERD (gastroesophageal reflux disease) Tubular adenoma of colon Chronic idiopathic constipation Surgical History History of penile implant History of gastric surgery H/O esophagogastroduodenoscopy Hx of colonoscopy (~10/2014) Family History Father No problems noted. Mother Esophageal cancer Maternal Grandfather Prostate cancer Diabetes Maternal Grandmother CVD (cardiovascular disease) Daughter Tubular adenoma Social History Household Members: Spouse Alcohol intake: current Alcohol intake frequency: former alcohol drinker Patient Tobacco Use Status: Former Tobacco user Physical Exam Vital Signs: Last Vital Signs Pulse 80 04/01/25 12:05 BP 162/78 H 04/01/25 12:05 Pulse Ox 96 04/01/25 12:05 Oxygen Delivery Method Room Air 04/01/25 12:05 BMI result Body Mass Index 27.2 Comfortable Neck supple no JVD. Lungs entry equal no rales. Heart S1-S2 heard no gallop or rub. Abdomen soft nontender. Neuro alert awake oriented. No asterixis. Extremities ; NO edema. Office Meds epoetin felipa-epbx 20,000 unit/mL injection solution Performing Provider: Tera Aguirre MD [facility] Administered by: Tera Aguirre MD on 04/01/25 12:22 Dose Route Admin Location Dispensed Lot Number Expiration Date NDC Senior Operations Manager 20,000 unit subcut Left arm 1 mL [id number] 09/20/26 1407-2111-18 [employer] Total Dispensed Waste 1 mL 0 % Results Reviewed Nephrology Results: Hgb, (14.0-18.0) 9.5 g/dl L 03/27/25 WBC, (4.8-10.8) 3.9 X10*3/uL L 03/03/25 Plt Count, (160-400) 204 X10*3/uL 03/03/25 Sodium, (135-145) 134 mmol/L L 03/27/25 Potassium, (3.3-5.1) 4.2 mmol/L 03/27/25 Chloride, (96-108) 103 mmol/L 03/27/25 Carbon Dioxide, (22-29) 20 mmol/L L 03/27/25 BUN, (9-16) 57 mg/dL H 03/27/25 Creatinine, (0.5-1.4) 6.03 mg/dL H* 03/27/25 Calcium, (8.4-10.2) 8.0 mg/dL L 03/27/25 Renal US 09/28/23 Assessment & Plan Assessment & Plan (1) Chronic kidney disease (CKD) stage G5/A1, glomerular filtration rate (GFR) less than or equal to 15 mL/min/1.73 square meter and albuminuria creatinine ratio less than 30 mg/g: Comment: Kidney biopsy on 12/18/2023 revealed nodular mesangial/diabetic glomerulosclerosis. Moderately active interstitial nephritis with eosinophils. Moderate chronic changes including global glomerulosclerosis 35%, tubular atrophy/interstitial fibrosis 30%. Vascular sclerosis moderate with focal hyalinosis. Code(s): N18.5 - Chronic kidney disease, stage 5 Category: Medical Plan: Cr is at 6 and eGFR at 9 No s/s of uremia Fluid status acceptable. Awaiting Vascular access appointment ( on ) (2) Anemia due to chronic kidney disease: Code(s): N18.9 - Chronic kidney disease, unspecified; D63.1 - Anemia in chronic kidney disease Category: Medical Plan: Administered Retacrit 77953 units subcutaneously and tolerated well (3) Type 2 diabetes mellitus with diabetic polyneuropathy: Code(s): E11.42 - Type 2 diabetes mellitus with diabetic polyneuropathy Category: Medical Plan: Blood pressure is better controlled - Initially elevated- Repeat was better Keep on current regimen (4) Essential hypertension: Code(s): I10 - Essential (primary) hypertension Category: Medical Plan: Blood pressure is well controlled with the current regimen after adding AMlodipine 2.5 mg QD on 03.03.25 No changes were made today. Stay on low-sodium (5) BPH w urinary obs/LUTS: Code(s): N40.1 - Benign prostatic hyperplasia with lower urinary tract symptoms; N13.8 - Other obstructive and reflux uropathy Category: Medical Plan: Follow up with Urology Orders: Orders Basic Metabolic Panel 3 Weeks D63.1 - Anemia in chronic kidney disease, N18.5 - Chronic kidney disease, stage 5, N18.9 - Chronic kidney disease, unspecified Complete Blood Count no Diff 3 Weeks D63.1 - Anemia in chronic kidney disease, N18.5 - Chronic kidney disease, stage 5, N18.9 - Chronic kidney disease, unspecified Parathyroid Hormone Intact 3 Weeks D63.1 - Anemia in chronic kidney disease, N18.5 - Chronic kidney disease, stage 5, N18.9 - Chronic kidney disease, unspecified AMB Epoetin Injection Practice Supplied Today D63.1 - Anemia in chronic kidney disease, N18.9 - Chronic kidney disease, unspecified Medications: Refilled amlodipine 2.5 mg PO DAILY 90 tabs 0RF Coding Level of Care Code Est Pt Level 4 (10140) Diagnoses Chronic kidney disease (CKD) stage G5/A1, glomerular filtration rate (GFR) less than or equal to 15 mL/min/1.73 square meter and albuminuria creatinine ratio less than 30 mg/g N18.5 Anemia due to chronic kidney disease N18.9; D63.1 Type 2 diabetes mellitus with diabetic polyneuropathy E11.42 Essential hypertension I10 BPH w urinary obs/LUTS N40.1; N13.8
== END 2025-04-01 12:22 | disposition home or self-care (01) ==
LOC: HO.HKAS 11:59
PROVIDERS: PCP Physician Assistant Medical; Visit Provider Internal Medicine Hypertension Specialist
DX: I12.9 Hypertensive chronic kidney disease with stage 1 through stage 4 chronic kidney disease, or unspecified chronic kidney disease (principal); E11.42 Type 2 diabetes mellitus with diabetic polyneuropathy; E11.22 Type 2 diabetes mellitus with diabetic chronic kidney disease; N18.5 Chronic kidney disease, stage 5; D63.1 Anemia in chronic kidney disease; N40.1 Benign prostatic hyperplasia with lower urinary tract symptoms; N13.8 Other obstructive and reflux uropathy
CPT/HCPCS: 99214

== ENCOUNTER → 2025-04-01 11:59 | Outpatient (BNVA) | payer OTHER, SELFPAY | PROVIDERS: PCP Physician Assistant Medical; Visit Provider Internal Medicine Hypertension Specialist | DX: N18.5 Chronic kidney disease, stage 5 (principal); D63.1 Anemia in chronic kidney disease; E11.42 Type 2 diabetes mellitus with diabetic polyneuropathy; E11.21 Type 2 diabetes mellitus with diabetic nephropathy; E11.22 Type 2 diabetes mellitus with diabetic chronic kidney disease; I12.0 Hypertensive chronic kidney disease with stage 5 chronic kidney disease or end stage renal disease; N12 Tubulo-interstitial nephritis, not specified as acute or chronic; L29.9 Pruritus, unspecified | CPT/HCPCS: 96372; 99212; Q5106 ==